=== PATIENT | male | born 1970 | race Caucasian/White ===

== ENCOUNTER 2024-03-24 19:11 | Outpatient (OUT) | payer OTHER, SELFPAY ==
--- NOTE | 2024-03-24 19:21 | US_ITS ---
The [address] [address] Patient Name: NASIM FELIX MRN: [id number] date: 1970 Sex: M Assigned Patient Location: US Current Patient Location: US Accession/Order Number: [id number] Exam Date: 03/24/2024 19:25 Report Date: 03/24/2024 20:10 At the request of: GINETTE KIMBLE Procedure: US venous doppler LE LT EXAM: US venous doppler LE LT HISTORY: SWELLING AND REDNESS R60.0 COMPARISON: None. TECHNIQUE: Left lower shows the ultrasound performed FINDINGS: No findings of left lower extremity DVT. Normal augmentation and waveforms US/US venous doppler LE LT IMPRESSION: No evidence of left lower extremity DVT Electronically authenticated by: NIK PISANO Date: 03/24/2024 20:10
== END 2024-03-24 19:12 | disposition home or self-care (01) ==
PROVIDERS: Visit Provider Nurse Practitioner Primary Care
DX: R60.0 Localized edema (principal); L53.9 Erythematous condition, unspecified
CPT/HCPCS: 93971

== ENCOUNTER 2024-04-01 20:26 | Emergency (ER) | payer OTHER, SELFPAY ==
--- OUTSIDE RECORDS SUMMARY | 2024-04-01 20:35 | XMS_ITS | CCD ---
Author Organization [facility] Care Team Providers Care Meat Inspector Name Role Phone Marcie BORREGO, Terese Primary Care Provider Marcie BORREGO, Terese Primary Care Provider Kelly Gonzalez RN Unavailable Billie RN, Janee Unavailable Unavailable Billie BEASLEY, Janee Unavailable Unavailable JEWEL BROWNING Consulting Unavailable CHRIS KOCH Admitting Unavailable RADHA COTTER Attending Unavailable LAVELLE ELIZABETH Referring Unavailable MUNZAR, TERESE Primary Care Unavailable MUNZAR, TERESE Primary Care Unavailable LUISANA SOUZA Attending Unavailable JAYA LEWIS Admitting Unavailable LACY MENSAH Consulting Unavailable MUNZAR, TERESE Primary Care Unavailable JAYA LEWIS Attending Unavailable Unavailable Primary Care Provider Unavailabl e No Family, Physician Primary Care Unavailable ROGELIO MADERA Attending Unavaila ble JULIOCESAR REYES Referring Unavailable MUNZAR, LUKE Primary Care Unavailable MUNZAR, LUKE Referring Unavailable MUNZAR, LUKE Primary Care Unavailable JULIOCESAR REYES Attending Unavailable MUNZAR, LUKE Primary Care Unavailable MUNZAR, LUKE Primary Care Unavailable MUNZAR, LUKE Primary Care Unavailable MUNZAR, LUKE Attending Unavailable MUNZAR, LUKE Referring Unavailable MUNZAR, LUKE Primary Care Unavailable MUNZAR, LUKE Primary Care Unavailable MUNZAR, LUKE Attending Unavailable MUNZAR, LUKE Primary Care Unavailable MUNZAR, LUKE Primary Care Unavailable MUNZAR, LUKE Primary Care Unavailable MUNZAR, LUKE Referring Unavailable MUNZAR, LUKE Primary Care Unavailable LAVELLE ELIZABETH Attending Unavailable MUNZAR, LUKE Primary Care Unavailable LAVELLE ELIZABETH Attending Unavailable MUNZAR, LUKE Primary Care Unavailable LEONEL LIZARRAGA Referring Unavailable MUNZAR, LUKE Primary Care Unavailable MUNZAR, LUKE Primary Care Unavailable MUNZAR, LUKE Attending Unavailable THIRERY, AHMAD M Attending Unavailable PCP, NOT IN SYSTEM Primary Care Unavailable CECE LOYA Attending Unavailable CECE LOYA Referring Unavailable PCP, NOT IN SYSTEM Primary Care Unavailable KALEB TAVAREZ Admitting Unavailable TRACE KHAN Attending Unavailable MUNZAR, LUKE Primary Care Unavailable Carl RESTREPO Consulting Unavailable MUNZAR, LUKE Primary Care Unavailable SHRADDHA GUDINO, BLANCHE Admitting Unavailabl e NGUYỄN, MUHANNAD Consulting Unavailable SPENCER GARVIN Attending Unavailable MUNZAR, LUKE Primary Care Unavailable MUNZAR, LUKE Primary Care Unavailable SELVIN NICHOLE Attending UnavailTRACEY Frazier Admitting Unavailable DEZ ADKINS Consulting Unavailable MUNZAR, LUKE Primary Care Unavailable MD WARREN DONALD Attending Unavailable MUNZAR, LUKE Primary Care Unavailable MUNZAR, LUKE Primary Care Unavailable JULIOCESAR REYES Referring Unavailable MUNZAR, LUKE Primary Care Unavailable MILIND WAGNER Attending Unavailable MUNZAR, LUKE Primary Care Unavailable BRENDAN ORO Attending Unavailable RYAN CLIFFORD Referring Unavailable MUNZAR, LUKE Primary Care Unavailable KENIA TUBBS Attending Unavailable NIK ANDERSEN Admitting Unavailable MUNZAR, LUKE Primary Care Unavailable BLANCHE ROBERTS Attending Unavailabl e NGUYỄN, MUHANNAD Consulting Unavailable STEW HOLCOMB Admitting Unavailable MUNZAR, LUKE Primary Care Unavailable PHYLLIS REYNOLDS Attending Unavailable LAVELLE ELIZABETH Referring Unavailable JEWEL BROWNING Consulting Unavailable Allergies Allergy Classification Reported Allergen(s) Allergy Type Date of Onset Reaction(s) Facility (20 sources) HYDROmorphone; Translations: [HYDROMORPHONE (BULK)] Drug Allergy 5 Mental Status Change, Itching [facility] (1 source) HYDROmorphone; Translations: [HYDROMORPHONE] Drug Allergy 4 [facility] Medications Current Medications Medication Drug Class(es) Dates Sig (Normalized) Sig (Original) iv contrast (will be provided with radiology test) (1 source) Start: 10-13-2022 End: 10-14-2022 iv contrast (will be provided with radiology test) Indications: Abnormal results of liver function studies , Alcoholic cirrhosis of liver without ascites (HCC) CT LIVER Inject, intravenously, once for 1 dose.No IV access, insert saline lock prior to the beginning of sedation, infusion, injection of imaging exam. Discontinue saline lock post exam. If Pt. has a central line or IVAD, may access for administration according to line specific nursing protocol. Once exam is complete flush line and de-access according to line specific nursing protocol in the CT contrast administration guidelines link. 1 Each 0 10/13/2022 10/14/2022 Active Comment on above: CT LIVER Inject, int ravenously, once for 1 dose.No IV access, insert saline lock prior to the beginning of sedation, infusion, injection of imaging exam. Discontinue saline lock post exam. If Pt. has a central line or IVAD, may access for administration according to line specific nursing protocol. Once exam is complete flush line and de-access according to line specific nursing protocol in the CT contrast administration guidelines link. lactulose 667 mg/ml oral solution (8 sources) Osmotic Laxative Start: 04-04-2023 End: 05-04-2023 take 30 mL by mouth three times daily lactulose 20 gram/30 mL solution 30 mL by ORAL/FEEDING TUBE route three times daily. 2700 mL 0 04/04/2023 05/04/2023 Suspended Comment on above: 30 mL by ORAL/FEEDIN G TUBE route three times daily. magnesium oxide 400 mg oral tablet (20 sources) Start: 08-18-2021 End: 06-20-2023 take 1 tablet by mouth once daily magnesium oxide (MAG-OX) 400 mg (241.3 mg magnesium) tablet Take 1 tablet by mouth once daily. 90 tablet 3 06/25/2022 06/20/2023 Suspended Comment on above: Take 1 tablet by devon once daily. nirmatrelvir tablet 300 mg (150 mg x 2) and ritonavir tablet 100 mg in a dose pack (PAXLOVID) (2 sources) Start: 07-05-2022 End: 07-10-2022 nirmatrelvir tablet 300 mg (150 mg x 2) and ritonavir tablet 100 mg in a dose pack (PAXLOVID) Indications: COVID-19 Administer TWO pink nirmatrelvir 150 mg tablets and ONE white ritonavir 100 mg tablet for a total of three tablets twice daily. 30 tablet 0 07/05/2022 07/10/2022 Active Start: 07-05-2022 End: 07-05-2022 nirmatrelvir tablet 300 mg ( 150 mg x 2) and ritonavir tablet 100 mg in a dose pack (PAXLOVID) Indications: COVID-19 Administer TWO pink nirmatrelvir 150 mg tablets and ONE white ritonavir 100 mg tablet for a total of three tablets twice daily. 30 tablet 0 07/05/2022 07/05/2022 Discontinued Comment on above: Administer TWO pink nirmatrelvir 150 mg tablets and ONE white ritonavir 100 mg tablet for a total of three tablets twice daily. 12 hr orphenadrine citrate 100 mg extended release oral tablet (1 source) Muscle Relaxant Start: 03-14-20 End: 04-13-20 take 1 tablet by mouth twice daily orphenadrine ER (NORFLEX) 100 mg tablet Take 1 tablet by mouth twice daily. 60 tablet 0 03/14/2022 04/13/2022 Active Comment on above: Take 1 tablet by devon twice daily. pantoprazole 40 mg delayed release oral tablet (20 sources) Proton Pump Inhibitor Start: 08-18-19 End: 04-27-20 take 1 tablet by mouth once daily pantoprazole DR (PROTONIX) 40 mg tablet Indications: Gastroesophageal reflux disease without esophagitis Take 1 tablet by mouth once daily. 90 tablet 3 05/03/2023 04/27/2024 Active Comment on above: Take 1 tablet by devon once daily. 1 ml testosterone cypionate 200 mg/ml injection (20 sources) Androgen Start: 04-26-20 End: 04-16-20 testosterone cypionate 200 mg injection (DEPO-TESTOSTERONE) Start: 04-16-2023 End: 10-13-2023 inject 1 mL by intramuscular injection every other week testosterone cypionate (DEPO-TESTOSTERONE) 200 mg/mL injection Indications: Hypogonadism in male Inject 1 mL intramuscularly every 2 weeks for 180 days. 2 mL 5 04/16/2023 10/13/2023 Suspended Start: 04-12-2023 End: 03-17-2024 testosterone cypionate 200 m g injection (DEPO-TESTOSTERONE) Start: 01-28-2023 testosterone c ypionate 200 mg injection (DEPO-TESTOSTERONE) Start: 01-28-2023 testosterone c ypionate 200 mg injection (DEPO-TESTOSTERONE) Start: 01-14-2023 End: 07-11-2023 testosterone cypionate (DEPO-TESTOSTERONE) 200 mg/mL injection Indications: Hypogonadism in male Inject 1 mL intramuscularly every 3 weeks for 90 days. 2 mL 1 04/12/2023 04/16/2023 Discontinued Start: 11-26-2022 testosterone c ypionate 100 mg injection (DEPO-TESTOSTERONE) Start: 11-26-2022 testosterone c ypionate 100 mg injection (DEPO-TESTOSTERONE) Start: 11-26-2022 testosterone c ypionate 100 mg injection (DEPO-TESTOSTERONE) Start: 11-26-2022 testosterone c ypionate 100 mg injection (DEPO-TESTOSTERONE) Start: 11-14-2022 End: 05-13-2023 inject 1 mL by intramuscular injection every other week testosterone cypionate (DEPO-TESTOSTERONE) 100 mg/mL injection Indications: Hypogonadism in male Inject 1 mL intramuscularly every 2 weeks for 180 days. 2 mL 5 11/14/2022 05/13/2023 Active Start: 06-25-2022 End: 12-05-2022 inject 1 mL by intramuscular injection every other week testosterone cypionate (DEPO-TESTOSTERONE) 200 mg/mL injection Indications: Hypogonadism in male Inject 1 mL intramuscularly every 2 weeks for 90 days. 2 mL 2 09/06/2022 11/14/2022 Discontinued Start: 06-06-2022 End: 11-14-2022 testosterone cypionate 200 m g injection (DEPO-TESTOSTERONE) Start: 05-09-2022 End: 11-05-2022 inject 1 mL by intramuscular injection every month testosterone cypionate (DEPO-TESTOSTERONE) 200 mg/mL injection Indications: Hypogonadism in male Inject 1 mL intramuscularly once every month for 180 days. 6 mL 0 05/09/2022 06/25/2022 Discontinued Comment on above: Inject 1 mL intramus cularly once every month for 180 days. Inject 1 mL intramus cularly every 2 weeks for 90 days. Inject 1 mL intramus cularly every 2 weeks for 180 days. Inject 1 mL intramus cularly every 3 weeks for 90 days. thiamine 100 mg oral tablet (20 sources) Start: End: take 1 tablet by mouth three times daily thiamine (VITAMIN B1) 100 mg tablet 1 tablet by ORAL/FEEDING TUBE route three times daily. 270 tablet 3 06/25/2022 06/20/2023 Suspended Start: 08-18-2021 End: 06-20-2023 take 1 tablet by mouth three times daily thiamine (VITAMIN B1) 100 mg tablet 1 tablet by ORAL/FEEDING TUBE route three times daily. 270 tablet 3 06/25/2022 06/20/2023 Active Comment on above: 1 tablet by ORAL/FEE DING TUBE route three times daily. Completed/Discontinued Medications Medication Drug Class(es) Dates Sig (Normalized) Sig (Original) acetaminophen 325 mg oral tablet (1 source) Start: 08-04-2023 End: 08-04-2023 acetaminophen (TYLENOL) tablet 650 mg Start: 08-04-2023 End: 08-04-2023 acetaminophen (TYLENOL) tabl et 650 mg 24 hr buPROPion hydrochloride 300 mg extended release oral tablet (20 sources) Aminoketone Start: 06-26-2022 take 1 tablet by mouth once daily buPROPion XL (WELLBUTRIN XL) 300 mg 24 hr tablet Indications: Anxiety and depression Take 1 tablet by mouth once daily. 30 tablet 11 06/26/2022 Suspended Start: 04-17-2022 End: 06-26-2022 take 1 tablet by mouth once daily buPROPion XL (WELLBUTRIN XL) 150 mg 24 hr tablet Indications: Anxiety and depression Take 1 tablet by mouth once daily. 30 tablet 11 04/17/2022 06/26/2022 Discontinued Comment on above: [facility] ciprofloxacin 500 mg oral tablet (4 sources) Quinolone Antimicrobial Start : 04-11 take 1 tablet by mouth twice daily ciprofloxacin HCl (CIPRO) 500 mg tablet Take 1 tablet by mouth twice daily. 6 tablet 0 04/11/2023 Active Comment on above: Take 1 tablet by devon twice daily. docusate sodium 100 mg oral capsule (20 sources) Start : 08-18 End: 06-25 take 1 capsule by mouth once daily docusate sodium (COLACE) 100 mg capsule Take 1 capsule by mouth once daily. 90 capsule 3 06/25/2022 Suspended Comment on above: Take 1 capsule by mo [facility] once daily. ferrous gluconate 324 mg oral tablet (20 sources) Start : 08-18 End: 06-25 take 1 tablet by mouth three times daily at mealtime ferrous gluconate 324 mg (37.5 mg iron) tablet Take 1 tablet by mouth three times daily with meals. 100 tablet 3 06/25/2022 06/25/2022 Discontinued Comment on above: Take 1 tablet by devon th three times daily with meals. hydroCHLOROthiazide 12.5 mg oral capsule (19 sources) Thiazide Diuretic Start : 11-01 take 1 capsule by mouth once daily hydroCHLOROthiazide 12.5 mg capsule Indications: Essential hypertension Take 1 capsule by mouth once daily. 30 capsule 5 11/01/2022 Suspended Comment on above: Take [address] [facility] once daily. 1 ml ketorolac tromethamine 15 mg/ml cartridge (1 source) Nonsteroidal Anti-inflammatory Drug, Cyclooxygenase Inhibitor Start : 08-04 End: 08-04 ketorolac (TORADOL) injection 15 mg Start: 08-04-2023 End: 08-04-2023 ketorolac (TORADOL) injectio n 15 mg lisinopril 40 mg oral tablet (20 sources) Angiotensin Converting Enzyme Inhibitor Start: 11-01-2022 take 1 tablet by mouth once daily lisinopril (ZESTRIL) 40 mg tablet Indications: Essential hypertension Take 1 tablet by mouth once daily. 90 tablet 3 11/01/2022 Suspended Start: 10-08-2022 take 1 tablet by devon th once daily lisinopril (ZESTRIL, PRINIVIL) 20 mg tablet Indications: Essential hypertension Take 1 tablet by mouth once daily. 60 tablet 5 10/08/2022 Active Start: 08-10-2022 End: 10-08-2022 take 1 tablet by mouth once daily lisinopril (ZESTRIL, PRINIVIL) 10 mg tablet Indications: Essential hypertension Take 1 tablet by mouth once daily. 90 tablet 3 08/10/2022 10/08/2022 Discontinued Comment on above: Take 1 tablet by devon once daily. naltrexone hydrochloride 50 mg oral tablet (2 sources) Opioid Antagonist Start: take 1 tablet by mouth once daily naltrexone 50 mg tablet Indications: Moderate alcohol use disorder, in early remission (HCC) Take 1 tablet by mouth once daily. 30 tablet 5 04/16/2023 Active Comment on above: Take 1 tablet by devon th once daily. sertraline 50 mg oral tablet (5 sources) Serotonin Reuptake Inhibitor Start: End: take 1 tablet by mouth once daily sertraline (ZOLOFT) 50 mg tablet Indications: Anxiety and depression Take 1 tablet by mouth once daily. 90 tablet 3 05/26/2021 04/17/2022 Discontinued Comment on above: Take 1 tablet by devon th once daily. sildenafil 100 mg oral tablet (20 sources) Phosphodiesterase 5 Inhibitor Start: End: sildenafil (VIAGRA) 100 mg tablet Indications: Drug-induced erectile dysfunction Take 1 tablet by mouth as needed. 30-60 minutes before sexual intercourse 15 tablet 5 12/11/2022 Suspended Comment on above: Take 1 tablet by devon th as needed. 30-60 minutes before sexual intercourse 50 ml sodium chloride 9 mg/ml injection (4 sources) Start: End: sodium chloride 0.9 % infusion Start: 08-04-2023 End: 08-04-2023 sodium chloride 0.9 % bolus 500 mL therapeutic multivitamin-minerals (THERA M PLUS, FERROUS FUMARAT,) 9 mg iron-400 mcg tablet (20 sources) Start: 09-26-2020 therapeutic multivitamin-minerals (THERA M PLUS, FERROUS FUMARAT,) 9 mg iron-400 mcg tablet Take 1 tablet by mouth once daily. 30 tablet 2 09/26/2020 Suspended Start: 09-26-2020 therapeutic mu ltivitamin-minerals (THERA M PLUS, FERROUS FUMARAT,) 9 mg iron-400 mcg tablet Take 1 tablet by mouth once daily. 30 tablet 2 09/26/2020 Active Comment on above: Take 1 tablet by devon th once daily. tiZANidine 4 mg oral tablet (5 sources) Central alpha-2 Adrenergic Agonist Start: 04-12-2023 take 1 tablet by mouth every eight hours as needed tiZANidine (ZANAFLEX) 4 mg tablet Take 1 tablet by mouth every 8 hours as needed. 90 tablet 1 04/12/2023 Suspended Comment on above: Take 1 tablet by devon th every 8 hours as needed. Problems Active Problems Problem Classification Problem Date Documented Da te Episodic/Chronic Acute and unspecified renal failure (1 source) Acute kidney failure, unspecified; Translations: [CHANDAN (acute kidney injury) (HCC)] Onset: 4 Episodic Alcohol-related disorders (20 sources) Alcoholic cirrhosis; Translations: [Alcoholic cirrhosis of liver without ascites] Onset: 0 Chronic Anxiety disorders (20 sources) Posttraumatic stress disorder; Translations: [Post-traumatic stress disorder, unspecified] Onset: 5 11-03-2014 Chronic Biliary tract disease (20 sources) Gallstone; Translations: [Calculus of gallbladder without cholecystitis without obstruction] 11-03-2014 Episodic Coagulation and hemorrhagic disorders (20 sources) Platelet count below reference range; Translations: [Thrombocytopenia, unspecified] Onset: 3 Chronic Conditions associated with dizziness or vertigo (1 source) Dizziness and giddiness; Translations: [Dizzy] Onset: 4 Episodic Deficiency and other anemia (1 source) Other pancytopenia; Translations: [Pancytopenia (HCC)] Onset: 4 Chronic Diseases of white blood cells (2 sources) Lymphocytopenia; Translations: [Lymphocytopenia] Onset: 4 Chronic E Codes: Adverse effects of medical drugs (1 source) Adverse reaction to drug; Translations: [Adverse effect of unspecified drugs, medicaments and biological substances, initial encounter] 08-04-2023 Episodic E Codes: Fall (1 source) Unspecified fall, initial encounter; Translations: [Fall, initial encounter] Onset: 4 Episodic Esophageal disorders (20 sources) Gastroesophageal reflux disease; Translations: [Gastro-esophageal reflux disease without esophagitis] Onset: 5 01-01-2020 Chronic Essential hypertension (20 sources) Essential hypertension; Translations: [Essential (primary) hypertension] Onset: 3 Chronic Fluid and electrolyte disorders (4 sources) Dehydration; Translations: [Dehydration] Onset: 4 08-04-2023 Episodic Gastroduodenal ulcer (except hemorrhage) (20 sources) Peptic ulcer; Translations: [Peptic ulcer, site unspecified, unspecified as acute or chronic, without hemorrhage or perforation] 11-03-2014 Chronic Gastrointestinal hemorrhage (1 source) Secondary esophageal varices with bleeding; Translations: [Secondary esophageal varices with bleeding (HCC)] Onset: 3 Chronic Headache; including migraine (1 source) Intractable chronic tension headache; Translations: [Chronic tension-type headache, intractable] Chronic Nutritional deficiencies (2 sources) Undernutrition; Translations: [Mild protein-calorie malnutrition] Onset: 3 05-03-2023 Chronic Other aftercare (1 source) Post-discharge follow-up; Translations: [Encounter for follow-up examination after completed treatment for conditions other than malignant neoplasm] 04-16-2023 Episodic Other circulatory disease (1 source) Elevated blood-pressure reading without diagnosis of hypertension; Translations: [Elevated blood-pressure reading, without diagnosis of hypertension] Episodic Other disorders of stomach and duodenum (20 sources) Disorder of stomach; Translations: [Disease of stomach and duodenum, unspecified] 11-03-2014 Episodic Other endocrine disorders (20 sources) Male hypogonadism; Translations: [Testicular hypofunction] Onset: 2 05-09-2022 Chronic Other endocrine disorders (1 source) Testicular hypofunction; Translations: [Hypogonadism in male] Onset: 2 Chronic Other eye disorders (1 source) Anisocoria; Translations: [Anisocoria] Onset: 4 Chronic Other injuries and conditions due to external causes (1 source) Unspecified injury of head, initial encounter; Translations: [Injury of head, initial encounter] Onset: 4 Episodic Other liver diseases (3 sources) Portal hypertension; Translations: [Portal hypertension] Chronic Other liver diseases (1 source) Cirrhosis of liver; Translations: [Unspecified cirrhosis of liver] 04-04-2023 Chronic Other liver diseases (1 source) Elevated liver enzymes level; Translations: [Abnormal levels of other serum enzymes] Episodic Other male genital disorders (2 sources) Drug-induced erectile dysfunction; Translations: [Impotence of organic origin] Chronic Other male genital disorders (1 source) Male erectile dysfunction, unspecified; Translations: [Impotence of organic origin] Chronic Other nervous system disorders (1 source) Unspecified abnormalities of gait and mobility; Translations: [Gait disturbance] Onset: 4 Episodic Other skin disorders (1 source) Seborrheic keratosis; Translations: [Other seborrheic keratosis] Episodic Other upper respiratory disease (1 source) Bleeding from nose; Translations: [Epistaxis] Episodic Residual codes; unclassified (1 source) Personal history of other specified conditions; Translations: [History of alcohol use] Onset: 4 Episodic Residual codes; unclassified (1 source) Localized edema; Translations: [Edema of left lower extremity] Onset: 4 Episodic Residual codes; unclassified (1 source) Edema Onset: 4 Episodic Skin and subcutaneous tissue infections (4 sources) Cellulitis, unspecified; Translations: [Cellulitis of left lower limb] Onset: 4 Episodic Spondylosis; intervertebral disc disorders; other back problems (3 sources) Cervical spondylosis; Translations: [Spondylosis without myelopathy or radiculopathy, cervical region] Onset: 4 Chronic Substance-related disorders (7 sources) Nicotine dependence; Translations: [Nicotine dependence, unspecified, uncomplicated] Onset: 3 04-11-2023 Chronic Superficial injury; contusion (1 source) Contusion of other part of head, initial encounter; Translations: [Contusion of face, initial encounter] Onset: 4 Episodic Syncope (1 source) Syncope and collapse; Translations: [Syncope and collapse] Onset: 4 Episodic Unclassified (1 source) ILL Onset: 4 Unclassified (1 source) Elevated serum lactate dehydrogenase; Translations: [Elevated serum lactate dehydrogenase] Onset: 4 Unclassified (1 source) Alcohol use disorder; Translations: [Alcohol use disorder] Onset: 3 Viral infection (3 sources) Verruca vulgaris; Translations: [Viral wart, unspecified] Episodic Past or Other Problems Problem Classification Problem Date Documented Da te Episodic/Chronic Abdominal pain (20 sources) Abdominal pain; Translations: [Unspecified abdominal pain] Onset: 1 08-29-2020 Episodic Deficiency and other anemia (2 sources) Anemia, unspecified; Translations: [Anemia, unspecified type] Onset: 3 Episodic Gastrointestinal hemorrhage (7 sources) Hematochezia; Translations: [Melena] Onset: 3 Episodic Other connective tissue disease (20 sources) Lateral epicondylitis of left humerus; Translations: [Lateral epicondylitis, left elbow] Onset: 8 11-11-2017 Episodic Other gastrointestinal disorders (20 sources) History of esophageal varices; Translations: [Personal history of other diseases of the digestive system] Onset: 2 03-01-2022 Episodic Other gastrointestinal disorders (1 source) Personal history of other diseases of the digestive system; Translations: [History of esophageal varices] Onset: 2 Episodic Other nervous system disorders (20 sources) Numbness of hand; Translations: [Anesthesia of skin] Onset: 7 10-22-2016 Episodic Other non-traumatic joint disorders (20 sources) Pain of right acromioclavicular joint; Translations: [Pain in right shoulder] Onset: 8 04-21-2018 Episodic Other screening for suspected conditions (not mental disorders or infectious disease) (16 sources) Patient encounter status; Translations: [Encounter for screening for malignant neoplasm of prostate] Onset: 3 Episodic Residual codes; unclassified (20 sources) Noncompliance with treatment; Translations: [Patient's noncompliance with other medical treatment and regimen] Onset: 0 01-01-2020 Episodic Residual codes; unclassified (1 source) Hallucinations, unspecified; Translations: [Hallucinations] Onset: 3 Episodic Spondylosis; intervertebral disc disorders; other back problems (20 sources) Neck pain; Translations: [Cervicalgia] Onset: 7 10-22-2016 Episodic Sprains and strains (20 sources) Sprain of talofibular ligament of right ankle; Translations: [Sprain of other ligament of right ankle, initial encounter] Onset: 7 07-07-2017 Episodic Results Test Name Value Interpretation Reference Range Facility ECG COMPLETEon 03-07-2024 ECG COMPLETE [facility] ED NOTEon 03-07-2024 ED NOTE HNO ID: [id number] Author: MILTON RAMSEY RN Service: ? Author Type: Registered Nurse Type: ED Notes Filed: 03/07/2024 02:58 Note Text: Report given to Myla BEASLEY. [facility] ED NOTE HNO ID: [id number] Author: MILTON RAMSEY RN Service: ? Author Type: Registered Nurse Type: ED Notes Filed: 03/07/2024 02:44 Note Text: Pt ambulatory to the restroom without assistance. Pt states I feel better [facility] ED NOTE HNO ID: [id number] Author: CASH PARADA RN Service: ? Author Type: Registered Nurse Type: ED Notes Filed: 03/07/2024 00:08 Note Text: Bed: 56-ED Expected date: Expected time: Means of arrival: Comments: triage Normal [facility] ED PROV NOTEon 03-07-2024 ED PROV NOTE [facility] Ethanol SerPl-mCncon 024 Ethanol [Mass/Vol] mg/dL Normal <11 [facility] Comment on above: Order Comment: Speci men Type: BLOOD SPECIMENOrdering Facility: [facility] Address: [address] [place] [address] Performed By: #### 5 643-2 ####[facility] LABORATORYCLIA [id number] [address] [place] FLUABV+SARS-CoV-2+RSV Pnl Re sp RUI+probeon 03-07-2024 FLUABV+SARS-CoV-2+ RSV Pnl Resp RUI+probe [facility] Comment on above: Performed By: #### 9 5941-1 ####[facility] LABORATORYCLIA [id number] [place] [address] [place] TSH SerPl-aCncon 03-07-2024 TSH Qn 1.720 m[IU]/L Normal 0.270-4.200 [facility] Comment on above: Order Comment: Speci men Type: BLOOD SPECIMENOrdering Facility: [facility] Address: [address] [place] [address] Performed By: #### 3 016-3 ####[facility] LABORATORYCLIA [id number] [place] [id number] [place] ALLIED HEALTHon 03-06-2024 ALLIED HEALTH [facility] Basic metabolic 2000 panelon 03-06-2024 Anion gap [Moles/Vol] 11 mmol/L Normal 8-15 [facility] Comment on above: Order Comment: Speci men Type: BLOOD SPECIMENOrdering Facility: [facility] Address: [address] [place] [address] Performed By: #### 2 4321-2, HSTNT ####[facility] LABORATORYCLIA [id number] [place] [id number] [place] Calcium [Mass/Vol] 8.9 mg/dL Normal 8.5-10.2 [facility] Comment on above: Order Comment: Speci men Type: BLOOD SPECIMENOrdering Facility: [facility] Address: [address] [place] [address] Performed By: #### 2 4321-2, HSTNT ####[facility] LABORATORYCLIA [id number] [place] [address] [place] Chloride [Moles/Vol] 106 mmol/L Normal 98-107 [facility] Comment on above: Order Comment: Speci men Type: BLOOD SPECIMENOrdering Facility: [facility] Address: [address] [place] [address] Performed By: #### 2 4321-2, HSTNT ####[facility] LABORATORYCLIA [id number] [place] [address] [place] CO2 [Moles/Vol] 22 mmol/L Normal 22-30 [facility] Comment on above: Order Comment: Speci men Type: BLOOD SPECIMENOrdering Facility: [facility] Address: [address] [place] [address] Performed By: #### 2 4321-2, HSTNT ####[facility] LABORATORYCLIA [id number] [place] [id number] [place] Creatinine [Mass/Vol] 1.35 mg/dL High 0.73-1.22 [facility] Comment on above: Order Comment: Speci men Type: BLOOD SPECIMENOrdering Facility: [facility] Address: [address] [place] [address] Performed By: #### 2 4321-2, HSTNT ####[facility] LABORATORYCLIA [id number] [place] [address] [place] Creatinine and Glomerular filtration rate.predicted panel (S/P/Bld) 62 mL/min/1.73m??? Normal >=60 [facility] Comment on above: Order Comment: Berna champion Type: BLOOD SPECIMENOrdering Facility: [facility] Address: [address] [place] [address] Result Comment: Puja mated Glomerular Filtration Rate (eGFR) is calculated using the 2020 CKD-EPI creatinine equation. This equation utilizes serum creatinine, sex, and age as parameters. The creatinine assay has traceable calibration to isotope dilution-mass spectrometry. Refer to KDIGO guidelines for clinical interpretation. In patients with unstable renal function, e.g. those with acute kidney injury, the eGFR may not accurately reflect actual GFR. Performed By: #### 2 4321-2, HSTNT ####[facility] LABORATORYCLIA [id number] [place] [id number] [place] Glucose [Mass/Vol] 116 mg/dL High 74-99 [facility] Comment on above: Order Comment: Berna champion Type: BLOOD SPECIMENOrdering Facility: [facility] Address: [address] [place] [address] Result Comment: The [place] [employer] (ADA) provides guidance for cutoff values for fasting glucose and random glucose. The ADA defines fasting as no caloric intake for at least 8 hours. Fasting plasma glucose results between 100 to 125 mg/dL indicate increased risk for diabetes (prediabetes).Fasting plasma glucose results greater than or equal to 126 mg/dL meet the criteria for diagnosis of diabetes. In the absence of unequivocal hyperglycemia, results should be confirmed by repeat testing. In a patient with classic symptoms of hyperglycemia or hyperglycemic crisis, random plasma glucose results greater than or equal to 200 mg/dL meet the criteria for diagnosis of diabetes.Reference: Standards of Medical Care in Diabetes 2016, [place] [employer]. Diabetes Care. 2016.39(Suppl 1). Performed By: #### 2 4321-2, HSTNT ####[facility] LABORATORYCLIA [id number] [place] [id number] [place] Potassium [Moles/Vol] 4.0 mmol/L Normal 3.7-5.1 [facility] Comment on above: Order Comment: Speci men Type: BLOOD SPECIMENOrdering Facility: [facility] Address: [address] [place] [address] Performed By: #### 2 4321-2, HSTNT ####[facility] LABORATORYCLIA [id number] [place] [id number] [place] Sodium [Moles/Vol] 139 mmol/L Normal 136-144 [facility] Comment on above: Order Comment: Speci men Type: BLOOD SPECIMENOrdering Facility: [facility] Address: [address] [place] [address] Performed By: #### 2 4321-2, HSTNT ####[facility] LABORATORYCLIA [id number] [place] [address] [place] Urea nitrogen [Mass/Vol] 6 mg/dL Low 9-24 [facility] Comment on above: Order Comment: Speci men Type: BLOOD SPECIMENOrdering Facility: [facility] Address: [address] [place] [address] Performed By: #### 2 4321-2, HSTNT ####[facility] LABORATORYCLIA [id number] [place] [address] [place] CBC panel Auto (Bld)on 03-06 Erythrocyte distribution width (RBC) [Ratio] 17.5 % High 11.5-15.0 [facility] Comment on above: Order Comment: Speci men Type: BLOOD SPECIMENOrdering Facility: [facility] Address: [address] [place] [address] Performed By: #### 5 8410-2 ####[facility] LABORATORYCLIA [id number] [place] [id number] [place] Hematocrit (Bld) [Volume fraction] 40.7 % Normal 39.0-51.0 [facility] Comment on above: Order Comment: Speci men Type: BLOOD SPECIMENOrdering Facility: [facility] Address: [address] [place] [address] Performed By: #### 5 8410-2 ####[facility]ACE[facility] LABORATORYCLIA [id number] [address] [place] Hemoglobin (Bld) [Mass/Vol] 12.6 g/dL Low 13.0-17.0 [facility] Comment on above: Order Comment: Speci men Type: BLOOD SPECIMENOrdering Facility: [facility] Address: [address] [place] [address] Performed By: #### 5 8410-2 ####[facility] LABORATORYCLIA [id number] [address] STATES [facility] MCH (RBC) [Entitic mass] 25.3 pg Low 26.0-34.0 [facility] Comment on above: Order Comment: Speci men Type: BLOOD SPECIMENOrdering Facility: [facility] Address: [address] [place] [address] Performed By: #### 5 8410-2 ####[facility] LABORATORYCLIA [id number] [address] [place] [facility] MCHC (RBC) [Mass/Vol] 31.0 g/dL Normal 30.5-36.0 [facility] Comment on above: Order Comment: Speci men Type: BLOOD SPECIMENOrdering Facility: [facility] Address: [address] [place] [address] Performed By: #### 5 8410-2 ####[facility] LABORATORYCLIA [id number] [address] [place] MCV (RBC) [Entitic vol] 81.7 fL Normal 80.0-100.0 [facility] Comment on above: Order Comment: Speci men Type: BLOOD SPECIMENOrdering Facility: [facility] Address: [address] [place] [address] Performed By: #### 5 8410-2 ####[facility] LABORATORYCLIA [id number] [address] Nucleated RBC (Bld) [#/Vol] 10*3/uL Normal <0.01 [facility] Comment on above: Order Comment: Speci men Type: BLOOD SPECIMENOrdering Facility: [facility] Address: [address] [place] [address] Performed By: #### 5 8410-2 ####[facility] LABORATORYCLIA [id number] [place] [id number] [place] Platelet mean volume (Bld) [Entitic vol] 9.8 fL Normal 9.0-12.7 [facility] Comment on above: Order Comment: Speci men Type: BLOOD SPECIMENOrdering Facility: [facility] Address: [address] [place] [address] Performed By: #### 5 8410-2 ####[facility] LABORATORYCLIA [id number] [place] [address] [place] Platelets (Bld) [#/Vol] 75 10*3/uL Low 150-400 [facility] Comment on above: Order Comment: Speci men Type: BLOOD SPECIMENOrdering Facility: [facility] Address: [address] [place] [address] Result Comment: No c lot detected. Performed By: #### 5 8410-2 ####[facility] LABORATORYCLIA [id number] [place] [address] [place] RBC (Bld) [#/Vol] 4.98 10*6/uL Normal 4.20-6.00 [facility] Comment on above: Order Comment: Speci men Type: BLOOD SPECIMENOrdering Facility: [facility] Address: [address] [place] [address] Performed By: #### 5 8410-2 ####[facility] LABORATORYCLIA [id number] [place] [id number] [place] WBC (Bld) [#/Vol] 3.71 10*3/uL Normal 3.70-11.00 [facility] Comment on above: Order Comment: Speci men Type: BLOOD SPECIMENOrdering Facility: [facility] Address: [address] [place] [address] Performed By: #### 5 8410-2 ####[facility] LABORATORYCLIA [id number] [place] [id number] [place] CT BRAIN WO IVCONon 03-06-[address] BRAIN WO IVCON Normal [facility] CTA HEAD W IVCONon 4 CTA HEAD W IVCON Normal [facility] CTA NECK W IVCONon 4 CTA NECK W IVCON Normal [facility] DRUG SCREEN, URINEon 024 AMPHETAMINE/METHAM P Negative Normal NEG [facility] Comment on above: Result Comment: AMPH /METH screening cut off = 1000 ng/mL Performed By: #### D FINNEY #### [facility] ([id number]) [address] [place] [address] BARBITURATES Negative Normal NEG [facility] Comment on above: Result Comment: Aida iturates screening cut off value = 200 ng/mL Performed By: #### D FINNEY #### [facility] ([id number]) [address] [place] [address] BENZODIAZEPINES Positive Abnormal NEG [facility] Comment on above: Result Comment: Conf irmation available upon request. Benzodiazepines screening cut off value = 200 ng/mL Performed By: #### D FINNEY #### [facility] ([id number]) [address] [place] [address] 48168 CANNABINOIDS Negative Normal [facility] Comment on above: Result Comment: Amber abinoids/THC screening cut off value = 50 ng/mL Performed By: #### D FINNEY #### [facility] ([id number]) [address] [place] [address]95[address] COCAINE METABOLITE Negative Normal NEG [facility] Comment on above: Result Comment: Coca ine screening cut off value = 300 ng/mL Performed By: #### D FINNEY #### [facility] ([id number]) [address] [place] [address] ECSTASY Negative Normal [facility] Comment on above: Result Comment: Ecst asy screening cut off value = 500 ng/mL This report is intended for use in clinical monitoring or management of patients. Performed By: #### D FINNEY #### [facility] ([id number]) [address] [place] [address] 13542 METHADONE Negative Normal NEG [facility] Comment on above: Result Comment: Meth adone screening cut off value = 300 ng/mL. Performed By: #### D FINNEY #### [facility] ([id number]) [address] [place] [address] 12315 OPIATES Negative Normal NEG [facility] Comment on above: Result Comment: Opia alicia screening cut off value = 300 ng/mL NOTE: This test is used for the detection of codeine, hydrocodone (>1000 ng/mL), morphine and hydromorphone (>900 ng/mL) in urine. Performed By: #### D FINNEY #### [facility] ([id number]) [address] [place] [address] OXYCODONE Negative Normal NEG [facility] Comment on above: Result Comment: Oxyc odone screening cut off value = 300 ng/mL NOTE: This test is used for the detection of oxycodone and oxymorphone in urine. Performed By: #### D FINNEY #### [facility] ([id number]) [address] [place] [address]656 PHENCYCLIDINE Negative Normal [facility] Comment on above: Result Comment: Phen cyclidine screening cut off value = 25 ng/mL Performed By: #### D FINNEY #### [facility] ([id number]) [address] [place] [address] 14950 ED Triage Noteon 03-06-2024 ED Triage Note Normal [facility] HIGH SENSITIVITY TROPONIN To n 03-06-2024 Troponin T.cardiac High sensitivity method [Mass/Vol] <6 Normal <12 [facility] Comment on above: Order Comment: Speci men Type: BLOOD SPECIMENOrdering Facility: [facility] Address: [address] [place] [address] Performed By: #### 2 4321-2, HSTNT ####[facility] LABORATORYCLIA [id number] [place] [id number] [place] PT panel Coag (PPP)on 2023 INR Coag (PPP) [Relative time] 1.1 {INR} Normal 0.9-1.3 [facility] Comment on above: Order Comment: Berna champion Type: BLOOD SPECIMENOrdering Facility: [facility] Address: [address] [place] [address] Result Comment: Kecia min K Antagonist (VKA) Therapeutic Range: INR 2 to 3 (Target INR of 2.5)Note: For patients treated with VKA drugs, such as warfarin, the [place] [employer] 2012 Guideline recommends a therapeutic INR range of 2 to 3 (target INR of 2.5). This recommendation includes high-risk patients with antiphospholipid syndrome with previous arterial or venous thromboembolism, current-generation mechanical or bioprosthetic aortic heart valve replacement.Note: Patients with mechanical aortic valve replacement and additional risk factors for thromboembolic events (atrial fibrillation, previous thromboembolism, LV dysfunction, hypercoagulable conditions) or an older generation mechanical AVR (i.e., ball in-Cage) or any mechanical MVR should have a INR therapeutic range of 2.5 to 3.5 (target INR of 3).Juan Albertott GH, et al. Chest 2012, 141:7S-47SNishimura RA, et al. JAC 2017, 70: 252-289 Performed By: #### 3 4528-0, 01704-6 ####[facility] LABORATORYCLIA [id number] [place] [id number] [place] PT Coag (PPP) [Time] 12.2 s Normal 9.7-13.0 [facility] Comment on above: Order Comment: Berna champion Type: BLOOD SPECIMENOrdering Facility: [facility] Address: [address] [place] [address] Performed By: #### 3 4528-0, 54555-8 ####[facility] LABORATORYCLIA [id number] [place] [id number] [place] URN MACROSCOPIC NURon 2023 BILIRUBIN PIERRE Negative Normal NEG [facility] Comment on above: Performed By: #### N UM #### [facility] ([id number]) [address] [place] [address], [place] [address] BLOOD/HGB PIERRE Negative Normal NEG [facility] Comment on above: Performed By: #### N UM #### [facility] ([id number]) [address] [place] [address], [place] [address] GLUCOSE PIERRE Negative Normal NEG [facility] Comment on above: Performed By: #### N UM #### [facility] ([id number]) [address] [place] [address], [place] [address] KETONES PIERRE Negative Normal NEG [facility] Comment on above: Performed By: #### N UM #### [facility] ([id number]) [address] [place] [address], [place] [address] LEUKOCYTE ESTERASE PIERRE Trace Abnormal NEG [facility] Comment on above: Performed By: #### N UM #### [facility] ([id number]) [address] [place] [address], [place] [address] NITRITE PIERRE Negative Normal NEG [facility] Comment on above: Performed By: #### N UM #### [facility] ([id number]) [address] [place] [address], [place] [address] PH PIERRE 6.0 Normal 5.0-8.5 [facility] Comment on above: Performed By: #### N UM #### [facility] ([id number]) [address] [place] [address], [place] [address] PROTEIN PIERRE Negative Normal NEG [facility] Comment on above: Performed By: #### N UM #### [facility] ([id number]) [address] [place] [address], [place] [address] SPECIFIC GRAVITY PIERRE <=1.005 Normal 1.003-1.035 [facility] Comment on above: Performed By: #### N UM #### [facility] ([id number]) [address] [facility] [place] [address] UROBILINOGEN PIERRE 0.2 eu/dL Normal <1.1 [facility] Comment on above: Performed By: #### N UM #### [facility] ([id number]) [address] [place] [address], [place] [address] Urinalysis complete panel (U )on 03-06-2024 Bilirubin Ql (U) Negative Normal Negative [facility] Comment on above: Order Comment: Speci men Type: URINE SPECIMENOrdering Facility: [facility] Address: [address] [place] [address] Performed By: #### 2 4356-8 ####[facility] LABORATORYCLIA [id number] [place] [address] [place] Clarity (Unsp spec) Clear Normal Clear [facility] Comment on above: Order Comment: Speci men Type: URINE SPECIMENOrdering Facility: [facility] Address: [address] [place] [address] Performed By: #### 2 4356-8 ####[facility]ORATORYCLIA [id number] [place] [address] [place] Color (U) Light Yellow Normal Yellow [facility] Comment on above: Order Comment: Speci men Type: URINE SPECIMENOrdering Facility: [facility] Address: [address] [place] [address] Performed By: #### 2 4356-8 ####[facility]ORATORYCLIA [id number] [place] [address] [place] Glucose Test strip (U) [Mass/Vol] Negative Normal Trace, Negative [facility] Comment on above: Order Comment: Speci men Type: URINE SPECIMENOrdering Facility: [facility] Address: [address] [place] [address] Performed By: #### 2 4356-8 ####[facility]ORATORYCLIA [id number] [place] [address] [place] Hemoglobin Ql (U) Negative Normal Negative, Trace [facility] Comment on above: Order Comment: Speci men Type: URINE SPECIMENOrdering Facility: [facility] Address: [address] [place] [address] Performed By: #### 2 4356-8 ####[facility] LABORATORYCLIA [id number] [place] [address] [place] Ketones Ql (U) Negative Normal Negative, Trace [facility] Comment on above: Order Comment: Speci men Type: URINE SPECIMENOrdering Facility: [facility] Address: [address] [place] [address] Performed By: #### 2 4356-8 ####[facility] LABORATORYCLIA [id number] [place] [address] [place] Leukocyte esterase Test strip Ql (U) Negative Normal Negative, 25 Lauren/uL [facility] Comment on above: Order Comment: Speci men Type: URINE SPECIMENOrdering Facility: [facility] Address: [address] [place] [address] Performed By: #### 2 4356-8 ####[facility] LABORATORYCLIA [id number] [place] [address] [place] Nitrite Ql (U) Negative Normal Negative [facility] Comment on above: Order Comment: Speci men Type: URINE SPECIMENOrdering Facility: [facility] Address: [address] [place] [address] Performed By: #### 2 4356-8 ####[facility] LABORATORYCLIA [id number] [place] [address] [place] pH (U) 6.0 [pH] Normal 5.0-8.0 [facility] Comment on above: Order Comment: Speci men Type: URINE SPECIMENOrdering Facility: [facility] Address: [address] [place] [address] Performed By: #### 2 4356-8 ####[facility] LABORATORYCLIA [id number] [place] [address] [place] Protein (U) [Mass/Vol] Negative Normal Trace, Negative [facility] Comment on above: Order Comment: Speci men Type: URINE SPECIMENOrdering Facility: [facility] Address: [address] [place] [address] Performed By: #### 2 4356-8 ####[facility] LABORATORYCLIA [id number] [place] [id number] [place] RBC LM.HPF (Urine sed) [#/Area] 0-3 /HPF Normal 0-3 /HPF [facility] Comment on above: Order Comment: Speci men Type: URINE SPECIMENOrdering Facility: [facility] Address: [address] [place] [address] Performed By: #### 2 4356-8 ####[facility] LABORATORYCLIA [id number] [place] [address] [place] Specific gravity (U) [Rel density] 1.010 Normal 1.005-1.030 [facility] Comment on above: Order Comment: Speci men Type: URINE SPECIMENOrdering Facility: [facility] Address: [address] [place] [address] Performed By: #### 2 4356-8 ####[facility] LABORATORYCLIA [id number] [place] [address] [place] Urobilinogen Ql (U) Normal Normal Normal [facility] Comment on above: Order Comment: Speci men Type: URINE SPECIMENOrdering Facility: [facility] Address: [address] [place] [address] Performed By: #### 2 4356-8 ####[facility] LABORATORYCLIA [id number] [place] [address] [place] WBC LM.HPF (Urine sed) [#/Area] 0-5 /HPF Normal 0-5 /HPF [facility] Comment on above: Order Comment: Speci men Type: URINE SPECIMENOrdering Facility: [facility] Address: [address] [place] [address] Performed By: #### 2 4356-8 ####[facility] LABORATORYCLIA [id number] [place] [address] [place] XR CHEST 1V FRONTAL PORTon 0 03-06-2024 XR CHEST 1V FRONTAL PORT Normal [facility] aPTT PPPon 03-06-2024 aPTT Coag (PPP) [Time] 26.4 s Normal 23.0-32.4 [facility] Comment on above: Order Comment: Speci men Type: BLOOD SPECIMENOrdering Facility: [facility] Address: [address] [place] [address] Performed By: #### 3 4528-0, 62745-1 ####[facility] LABORATORYCLIA [id number] [address] CBC AND AUTO DIFFon 03-05-20 24 ABSOLUTE BASOPHIL 0.0 X10E9/L Normal 0.0-0.2 [facility] Comment on above: Performed By: #### C CORTEZ, , 49864-5, CBCA #### [facility] ([id number]) [address] [place] [address] ABSOLUTE NEUTROPHIL 2.8 X10E9/L Normal 1.5-6.6 [facility] Comment on above: Performed By: #### C CORTEZ, , 78344-9, CBCA #### [facility] ([id number]) [address] [place] [address] 12627 Basophils/100 WBC (Bld) 0.7 % Normal [facility] [facility] Comment on above: Performed By: #### C CORTEZ, , 56428-2, CBCA #### [facility] ([id number]) [address] [place] [address] 99101 Eosinophils (Bld) [#/Vol] 0.3 10*3/uL Normal 0.0-0.4 [facility] Comment on above: Performed By: #### C CORTEZ, , 40325-4, CBCA #### [facility] ([id number]) [address] [place] [address] 92932 Eosinophils/100 WBC (Bld) 6.2 % Normal [facility] Comment on above: Performed By: #### C CORTEZ, , 84964-5, CBCA #### [facility] ([id number]) [address] [place] [address] 86275 Erythrocyte distribution width (RBC) [Ratio] 19.0 % High 11.5-15.0 [facility] Comment on above: Performed By: #### C CORTEZ, , 56481-8, CBCA #### [facility] ([id number]) [address] [place] [address] 32057 Hematocrit (Bld) [Volume fraction] 38.2 % Low 39-49 [facility] Comment on above: Performed By: #### Cecile TORO, , 88617-6, CBCA #### [facility] ([id number]) [address] [place] [address] 58767 Hemoglobin (Bld) [Mass/Vol] 12.1 g/dL Low 13.0-17.0 [facility] Comment on above: Performed By: #### C CORTEZ, , 41320-7, CBCA #### [facility] ([id number]) [address] [place] [address] 83648 Lymphocytes (Bld) [#/Vol] 1.0 10*3/uL Normal 1.0-3.5 [facility] Comment on above: Performed By: #### Cecile TORO, , 60744-0, CBCA #### [facility] ([id number]) [address] [place] [address] 52443 Lymphocytes/100 WBC (Bld) 21.2 % Normal [facility] Comment on above: Performed By: #### Cecile TROO, , 76998-1, CBCA #### [facility] ([id number]) [address] [place] [address] 53418 MCH (RBC) [Entitic mass] 24.9 pg Low 27-34 [facility] Comment on above: Performed By: #### C CORTEZ, , 44416-5, CBCA #### [facility] ([id number]) [address] [place] [address] 05936 MCHC (RBC) [Mass/Vol] 31.7 g/dL Low 32-36 [facility] Comment on above: Performed By: #### C CORTEZ, , 04598-0, CBCA #### [facility] ([id number]) [address] [place] [address] 55768 MCV (RBC) [Entitic vol] 79 fL Low 80-100 [facility] Comment on above: Performed By: #### C CORTEZ, , 32040-7, CBCA #### [facility] ([id number]) [address] [place] [address] 12115 Monocytes (Bld) [#/Vol] 0.5 10*3/uL Normal 0-0.9 [facility] Comment on above: Performed By: #### C CORTEZ, , 02938-6, CBCA #### [facility] ([id number]) [address] [place] [address] 50191 Monocytes/100 WBC (Bld) 11.3 % Normal [facility] Comment on above: Performed By: #### C CORTEZ, , 88544-2, CBCA #### [facility] ([id number]) [address] [place] [address] 36765 Neutrophils/100 WBC (Bld) 60.6 % Normal [facility] Comment on above: Performed By: #### C CORTEZ, , 97114-8, CBCA #### [facility] ([id number]) [address] [place] [address] 06911 Platelet mean volume (Bld) [Entitic vol] 8.1 fL Normal 7-12 [facility] Comment on above: Performed By: #### C CORTEZ, 47248-8, 88275-5, CBCA #### [facility] ([id number]) [address] [place] [address] 34238 Platelets (Bld) [#/Vol] 88 10*3/uL Low 150-450 [facility] Comment on above: Performed By: #### C CORTEZ, , 93090-1, CBCA #### [facility] ([id number]) [address] [place] [address] 10687 RBC COUNT 4.87 X10E12/L Normal 4.10-5.70 [facility] Comment on above: Performed By: #### C CORTEZ, , 64492-8, CBCA #### [facility] ([id number]) [address] [place] [address] 08114 WBC (Bld) [#/Vol] 4.6 10*3/uL Normal 4.0-11.0 [facility] Comment on above: Performed By: #### C CORTEZ, , 25087-8, CBCA #### [facility] ([id number]) [address] [place] [address] 71832 [facility] 03-05-2024 RAPHAELN Telephone (PODCCP) GALINDO SNOW ([id number]) 1970 M Date Time Provider Department 03/05/24 LUKE JACK PODCCP During your visit today, we recorded the following information about you: Larisa Puckett 03/05/2024 1:34 PM Signed Transitional Care Management (TCM) [facility] Provider Action / FYI: NA SUMMARY: Outreach type: FOLLOW-UP OUTREACH Discharge Network Status: In-Network Discharge Source of Patient: [facility] TCM Discharge Report Patient discharged from [facility] on 02/20/2024. Admitted for Cellulitis. Contact made with patient: No - 2nd unsuccessful attempt - end outreach and close encounter. Larisa Puckett March 05, 2024 1:34 PM Allergies As of Date: 03/05/2024 Noted Allergy Reaction DILAUDID (HYDROMORPHONE (BULK)) 11/03/2014 1 - Mental Status Change 9 - Itching Date Reviewed: 02/22/2024 Reviewed by: Karlo Chacon - Fully Assessed Reason for Visit: Transition Of Care [4074] Prescriptions as of 03/05/2024 - pantoprazole DR (PROTONIX) 40 mg tablet Take 1 tablet by mouth two times a day before meals at 6 am and 4 pm. - lisinopril (ZESTRIL) 40 mg tablet Take 1 tablet by mouth once daily. - hydrOXYzine pamoate (VISTARIL) 50 mg capsule Take 1 capsule by mouth three times a day as needed for anxiety. - testosterone cypionate (DEPO-TESTOSTERONE) 200 mg/mL injection Inject 1 mL intramuscularly one time a week for 180 days. - sildenafil (VIAGRA) 100 mg tablet Take 1 tablet by mouth as needed. 30-60 minutes before sexual intercourse - magnesium oxide (MAG-OX) 400 mg (241.3 mg magnesium) tablet Take 1 tablet by mouth once daily. - thiamine (VITAMIN B1) 100 mg tablet 1 tablet by ORAL/FEEDING TUBE route three times a day. - venlafaxine ER (EFFEXOR XR) 37.5 mg 24 hr capsule Take 1 capsule by mouth daily with breakfast. - hydroCHLOROthiazide 12.5 mg capsule Take 1 capsule by mouth once daily. - therapeutic multivitamin-minerals (THERA M PLUS, FERROUS FUMARAT,) 9 mg iron-400 mcg tablet Take 1 tablet by mouth once daily. Meds Comments as of 12/30/2019: Pt stopped taking medications about 2 weeks ago- restarted 12/27 Problem List As Of Date 03/05/2024 Noted Resolved Thrombocytopenia (HCC) [D69.6] 07/01/2013 Gastropathy [K31.9] Alcohol use disorder [F10.90] Gallstones [K80.20] PUD (peptic ulcer disease) [K27.9] GERD (gastroesophageal reflux disease) [K21.9] 11/03/2014 PTSD (post-traumatic stress disorder) [F43.10] 11/03/2014 Numbness and tingling of left leg [R20.0, R20.2]10/22/2016 Cervicalgia [M54.2] 10/22/2016 Chronic neck pain [M54.2, G89.29] 10/22/2016 Sprain of anterior talofibular ligament of righ*07/07/2017 Lateral epicondylitis of left elbow [M77.12] 11/11/2017 Arthralgia of right acromioclavicular joint [M2*04/21/2018 Anxiety [F41.9] 06/14/2018 GI bleed [K92.2] 12/30/2019 01/01/2020 Non compliance with medical treatment [Z91.199] 12/30/2019 Abdominal pain [R10.9] 08/29/2020 Alcoholic cirrhosis of liver without ascites (H*03/01/2022 History of esophageal varices [Z87.19] 03/01/2022 Hypogonadism in male [E29.1] 05/09/2022 Essential hypertension [I10] 08/10/2022 Acute upper GI bleeding [K92.2] 03/30/2023 04/04/2023 Bleeding esophageal varices (HCC) [I85.01] 03/31/2023 04/04/2023 Hematemesis with nausea [K92.0] 03/31/2023 04/11/2023 Alcohol abuse [F10.10] 03/31/2023 Alcohol withdrawal delirium (HCC) [F10.931] 03/31/2023 Upper GI bleed [K92.2] 04/10/2023 04/11/2023 LLQ abdominal pain [R10.32] 04/10/2023 04/11/2023 Hematemesis without nausea [K92.0] 04/10/2023 04/11/2023 Nicotine use disorder, F17.2 [F17.200] 04/10/2023 Acute upper GI bleed [K92.2] 05/02/2023 05/03/2023 Severe protein-calorie malnutrition (HCC) [E43] 05/03/2023 GI bleeding [K92.2] 05/03/2023 05/04/2023 Alcohol use disorder, severe, dependence (HCC) *05/04/2023 Hematemesis [K92.0] 05/06/2023 05/10/2023 Withdrawal symptoms, alcohol, with delirium (HC*05/06/2023 05/10/2023 Acute encephalopathy [G93.40] 05/06/2023 05/10/2023 Alcoholic cirrhosis (HCC) [K70.30] 05/06/2023 Alcohol withdrawal syndrome with complication (*05/07/2023 05/10/2023 Delirium [R41.0] 05/08/2023 05/10/2023 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] 05/10/2023 Cellulitis of lower leg [L03.119] 02/05/2024 Cellulitis of left lower extremity [L03.116] 02/17/2024 Hyponatremia [E87.1] 02/19/2024 Hypokalemia [E87.6] 02/19/2024 Sepsis without acute organ dysfunction (HCC) [A*02/19/2024 Cirrhosis of liver (HCC) [K74.60] 10/15/2018 Diarrhea of presumed infectious origin [R19.7] 02/19/2024 Cellulitis of left leg [L03.116] 02/19/2024 02/22/2024 Cellulitis [L03.90] 02/21/2024 02/22/2024 Chronic anemia [D64.9] 02/21/2024 Lymphedema of left leg [I89.0] 02/22/2024 Cellulitis [L03.90] 02/22/2024 Encounter Status:Closed by LARISA PUCKETT on 03/05/24 Normal [facility] METABOLIC PANE Hussein 03-05-2024 Albumin [Mass/Vol] 3.8 g/dL Normal 3.2-5.3 [facility] Comment on above: Performed By: #### C , 70652-2, 29054-8, CBCA #### [facility] ([id number]) [address] [place] [address] 27338 ALP [Catalytic activity/Vol] 82 U/L Normal 39-130 [facility] Comment on above: Performed By: #### C CORTEZ, , 71510-9, CBCA #### [facility] ([id number]) [address] [place] [address] 78931 ALT [Catalytic activity/Vol] 33 U/L Normal 0-40 [facility] Comment on above: Performed By: #### C CORTEZ, , 78728-2, CBCA #### [facility] ([id number]) [address] [place] [address] 67158 Anion gap [Moles/Vol] 7 mmol/L Normal 5-15 [facility] Comment on above: Performed By: #### C CORTEZ, , 79539-5, CBCA #### [facility] ([id number]) [address] [place] [address] 00444 AST [Catalytic activity/Vol] 56 U/L High 0-41 [facility] Comment on above: Performed By: #### C CORTEZ, , 07248-3, CBCA #### [facility] ([id number]) [address] [place] [address] 53848 Bilirubin [Mass/Vol] 0.7 mg/dL Normal 0.3-1.2 [facility] Comment on above: Performed By: #### C CORTEZ, , 95649-8, CBCA #### [facility] ([id number]) [address] [place] [address] 24156 Calcium [Mass/Vol] 8.8 mg/dL Normal 8.5-10.5 [facility] Comment on above: Performed By: #### C CORTEZ, , 85393-3, CBCA #### [facility] ([id number]) [address] [place] [address] 29417 Chloride [Moles/Vol] 105 mmol/L Normal 98-109 [facility] Comment on above: Performed By: #### C CORTEZ, , 17915-7, CBCA #### [facility] ([id number]) [address] [place] [address] 44600 CO2 [Moles/Vol] 25 mmol/L Normal 22-32 [facility] Comment on above: Performed By: #### C CORTEZ, , 67532-5, CBCA #### [facility] ([id number]) [address] [place] [address] 89089 Creatinine [Mass/Vol] 1.19 mg/dL Normal 0.70-1.20 [facility] Comment on above: Result Comment: METH OD TRACEABLE TO IDMS STANDARD Performed By: #### C CORTEZ, , 27865-0, CBCA #### [facility] ([id number]) [address] [place] [address] 92115 GFR/1.73 sq M.predicted among non-blacks MDRD (S/P/Bld) [Vol rate/Area] 72 mL/min/{1.73_m2} Normal >59 [facility] Comment on above: Result Comment: Reported eGFR is based on the CKD-EPI 1 equation that does not use a race coefficient. Performed By: #### C CORTEZ, 76447-5, 77038-3, CBCA #### [facility] ([id number]) [address] [place] [address] 94238 Glucose [Mass/Vol] 90 mg/dL Normal 65-99 [facility] Comment on above: Performed By: #### C CORTEZ, 70688-8, 54983-6, CBCA #### [facility] ([id number]) [address] [place] [address] 60858 Potassium [Moles/Vol] 3.6 mmol/L Normal 3.5-5.0 [facility] Comment on above: Performed By: #### C CORTEZ, , 90848-1, CBCA #### [facility] ([id number]) [address] [place] [address] 51424 Protein [Mass/Vol] 7.4 g/dL Normal 6.0-8.0 [facility] Comment on above: Performed By: #### C CORTEZ, , 23571-7, CBCA #### [facility] ([id number]) [address] [place] [address] 35367 Sodium [Moles/Vol] 137 mmol/L Normal 134-146 [facility] Comment on above: Performed By: #### C CORTEZ, , 84925-6, CBCA #### [facility] ([id number]) [address] [place] [address] 72093 Urea nitrogen [Mass/Vol] 7 mg/dL Normal 5-23 [facility] Comment on above: Performed By: #### C CORTEZ, , 32487-2, CBCA #### [facility] ([id number]) [address] [place] [address] 89933 MAGNESIUMon 03-05-2024 Magnesium [Mass/Vol] 1.8 mg/dL Normal 1.8-2.6 [facility] Comment on above: Performed By: #### C CORTEZ, , 91993-2, CBCA #### [facility] ([id number]) [address] [place] [address] 96307 Troponin I.cardiac High sens itivity method [Mass/Vol]on 03-05-2024 1 HOUR TROP I, HIGH SENSITIVITY 4 ng/L Normal <21 [facility] Comment on above: Performed By: #### 8 9579-7 #### [facility] ([id number]) [address] [facility], [place] [address] TROPONIN I, HIGH SENSITIVITY 4 ng/L Normal <21 [facility] Comment on above: Performed By: #### C MP, 78671-6, 18462-0, CBCA #### [facility] ([id number]) [address] [facility], [place] [address] XR CHEST 1 VWon 03-05-2024 XR CHEST 1 VW XR CHEST 1 VW XR CHEST 1 VW HISTORY: Syncope, cough COMPARISON: None FINDINGS: AP upright film obtained. The cardiomediastinal silhouette is within normal limits. No pleural effusion or pneumothorax. No consolidation. IMPRESSION: * No radiographic evidence of acute cardiopulmonary process. Approved by Resident: Gamal Reyna DO on 03/05/2024 10:01 PM Harvey Dixon MD have personally reviewed the image(s) and agree with and/or edited the report Finalized by Harvey Marks MD on 03/05/2024 10:04 PM Normal [facility] CNPNon 02-24-2024 CNPN Telephone (PODCCP) GALINDO SNOW ([id number]) 1970 M Date Time Provider Department 02/24/24 SHERLEY TAYLOR PODCCP During your visit today, we recorded the following information about you: Sherley Taylor RN 02/24/2024 4:18 PM Signed Transitional Care Management (TCM) [facility] Provider Action / FYI: na SUMMARY: Outreach type: INITIAL OUTREACH Discharge Network Status: In-Network Discharge Source of Patient: [facility] TCM Discharge Report Patient discharged from [facility] on 02.22.24. Admitted for Lymphedema of left leg Contact made with patient: No - 2nd unsuccessful attempt - end outreach and close encounter. Sherley Taylor RN February 24, 2024 4:18 PM Allergies As of Date: 02/24/2024 Noted Allergy Reaction DILAUDID (HYDROMORPHONE (BULK)) 11/03/2014 1 - Mental Status Change 9 - Itching Date Reviewed: 02/22/2024 Reviewed by: Karlo Chacon - Fully Assessed Reason for Visit: Transition Of Care [4074] Prescriptions as of 02/24/2024 - pantoprazole DR (PROTONIX) 40 mg tablet Take 1 tablet by mouth two times a day before meals at 6 am and 4 pm. - lisinopril (ZESTRIL) 40 mg tablet Take 1 tablet by mouth once daily. - hydrOXYzine pamoate (VISTARIL) 50 mg capsule Take 1 capsule by mouth three times a day as needed for anxiety. - testosterone cypionate (DEPO-TESTOSTERONE) 200 mg/mL injection Inject 1 mL intramuscularly one time a week for 180 days. - sildenafil (VIAGRA) 100 mg tablet Take 1 tablet by mouth as needed. 30-60 minutes before sexual intercourse - magnesium oxide (MAG-OX) 400 mg (241.3 mg magnesium) tablet Take 1 tablet by mouth once daily. - thiamine (VITAMIN B1) 100 mg tablet 1 tablet by ORAL/FEEDING TUBE route three times a day. - venlafaxine ER (EFFEXOR XR) 37.5 mg 24 hr capsule Take 1 capsule by mouth daily with breakfast. - hydroCHLOROthiazide 12.5 mg capsule Take 1 capsule by mouth once daily. - therapeutic multivitamin-minerals (THERA M PLUS, FERROUS FUMARAT,) 9 mg iron-400 mcg tablet Take 1 tablet by mouth once daily. Meds Comments as of 12/30/2019: Pt stopped taking medications about 2 weeks ago- restarted 12/27 Problem List As Of Date 02/24/2024 Noted Resolved Thrombocytopenia (HCC) [D69.6] 07/01/2013 Gastropathy [K31.9] Alcohol use disorder [F10.90] Gallstones [K80.20] PUD (peptic ulcer disease) [K27.9] GERD (gastroesophageal reflux disease) [K21.9] 11/03/2014 PTSD (post-traumatic stress disorder) [F43.10] 11/03/2014 Numbness and tingling of left leg [R20.0, R20.2]10/22/2016 Cervicalgia [M54.2] 10/22/2016 Chronic neck pain [M54.2, G89.29] 10/22/2016 Sprain of anterior talofibular ligament of righ*07/07/2017 Lateral epicondylitis of left elbow [M77.12] 11/11/2017 Arthralgia of right acromioclavicular joint [M2*04/21/2018 Anxiety [F41.9] 06/14/2018 GI bleed [K92.2] 12/30/2019 01/01/2020 Non compliance with medical treatment [Z91.199] 12/30/2019 Abdominal pain [R10.9] 08/29/2020 Alcoholic cirrhosis of liver without ascites (H*03/01/2022 History of esophageal varices [Z87.19] 03/01/2022 Hypogonadism in male [E29.1] 05/09/2022 Essential hypertension [I10] 08/10/2022 Acute upper GI bleeding [K92.2] 03/30/2023 04/04/2023 Bleeding esophageal varices (HCC) [I85.01] 03/31/2023 04/04/2023 Hematemesis with nausea [K92.0] 03/31/2023 04/11/2023 Alcohol abuse [F10.10] 03/31/2023 Alcohol withdrawal delirium (HCC) [F10.931] 03/31/2023 Upper GI bleed [K92.2] 04/10/2023 04/11/2023 LLQ abdominal pain [R10.32] 04/10/2023 04/11/2023 Hematemesis without nausea [K92.0] 04/10/2023 04/11/2023 Nicotine use disorder, F17.2 [F17.200] 04/10/2023 Acute upper GI bleed [K92.2] 05/02/2023 05/03/2023 Severe protein-calorie malnutrition (HCC) [E43] 05/03/2023 GI bleeding [K92.2] 05/03/2023 05/04/2023 Alcohol use disorder, severe, dependence (HCC) *05/04/2023 Hematemesis [K92.0] 05/06/2023 05/10/2023 Withdrawal symptoms, alcohol, with delirium (HC*05/06/2023 05/10/2023 Acute encephalopathy [G93.40] 05/06/2023 05/10/2023 Alcoholic cirrhosis (HCC) [K70.30] 05/06/2023 Alcohol withdrawal syndrome with complication (*05/07/2023 05/10/2023 Delirium [R41.0] 05/08/2023 05/10/2023 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] 05/10/2023 Cellulitis of lower leg [L03.119] 02/05/2024 Cellulitis of left lower extremity [L03.116] 02/17/2024 Hyponatremia [E87.1] 02/19/2024 Hypokalemia [E87.6] 02/19/2024 Sepsis without acute organ dysfunction (HCC) [A*02/19/2024 Cirrhosis of liver (HCC) [K74.60] 10/15/2018 Diarrhea of presumed infectious origin [R19.7] 02/19/2024 Cellulitis of left leg [L03.116] 02/19/2024 02/22/2024 Cellulitis [L03.90] 02/21/2024 02/22/2024 Chronic anemia [D64.9] 02/21/2024 Lymphedema of left leg [I89.0] 02/22/2024 Cellulitis [L03.90] 02/22/2024 Encounter Status:Closed by SHERLEY TAYLOR on 02/24/24 [facility] Telephone (PODCCP) GALINDO SNOW ([id number]) 1970 M Date Time Provider Department 02/24/24 SHERLEY TAYLOR PODCCP During your visit today, we recorded the following information about you: Sherley Taylor RN 02/24/2024 11:52 AM Signed Transitional Care Management (TCM) [facility] Provider Action / FYI: na SUMMARY: Outreach type: INITIAL OUTREACH Discharge Network Status: In-Network Discharge Source of Patient: [facility] TCM Discharge Report Patient discharged from [facility] on 02.22.24. Admitted for Lymphedema of left leg Contact made with patient: No - next outreach attempt will be on next . Sherley Taylor RN February 24, 2024 11:52 AM Allergies As of Date: 02/24/2024 Noted Allergy Reaction DILAUDID (HYDROMORPHONE (BULK)) 11/03/2014 1 - Mental Status Change 9 - Itching Date Reviewed: 02/22/2024 Reviewed by: Karlo Chacon - Fully Assessed Reason for Visit: Transition Of Care [4074] Prescriptions as of 02/24/2024 - pantoprazole DR (PROTONIX) 40 mg tablet Take 1 tablet by mouth two times a day before meals at 6 am and 4 pm. - lisinopril (ZESTRIL) 40 mg tablet Take 1 tablet by mouth once daily. - hydrOXYzine pamoate (VISTARIL) 50 mg capsule Take 1 capsule by mouth three times a day as needed for anxiety. - testosterone cypionate (DEPO-TESTOSTERONE) 200 mg/mL injection Inject 1 mL intramuscularly one time a week for 180 days. - sildenafil (VIAGRA) 100 mg tablet Take 1 tablet by mouth as needed. 30-60 minutes before sexual intercourse - magnesium oxide (MAG-OX) 400 mg (241.3 mg magnesium) tablet Take 1 tablet by mouth once daily. - thiamine (VITAMIN B1) 100 mg tablet 1 tablet by ORAL/FEEDING TUBE route three times a day. - venlafaxine ER (EFFEXOR XR) 37.5 mg 24 hr capsule Take 1 capsule by mouth daily with breakfast. - hydroCHLOROthiazide 12.5 mg capsule Take 1 capsule by mouth once daily. - therapeutic multivitamin-minerals (THERA M PLUS, FERROUS FUMARAT,) 9 mg iron-400 mcg tablet Take 1 tablet by mouth once daily. Meds Comments as of 12/30/2019: Pt stopped taking medications about 2 weeks ago- restarted 12/27 Problem List As Of Date 02/24/2024 Noted Resolved Thrombocytopenia (HCC) [D69.6] 07/01/2013 Gastropathy [K31.9] Alcohol use disorder [F10.90] Gallstones [K80.20] PUD (peptic ulcer disease) [K27.9] GERD (gastroesophageal reflux disease) [K21.9] 11/03/2014 PTSD (post-traumatic stress disorder) [F43.10] 11/03/2014 Numbness and tingling of left leg [R20.0, R20.2]10/22/2016 Cervicalgia [M54.2] 10/22/2016 Chronic neck pain [M54.2, G89.29] 10/22/2016 Sprain of anterior talofibular ligament of righ*07/07/2017 Lateral epicondylitis of left elbow [M77.12] 11/11/2017 Arthralgia of right acromioclavicular joint [M2*04/21/2018 Anxiety [F41.9] 06/14/2018 GI bleed [K92.2] 12/30/2019 01/01/2020 Non compliance with medical treatment [Z91.199] 12/30/2019 Abdominal pain [R10.9] 08/29/2020 Alcoholic cirrhosis of liver without ascites (H*03/01/2022 History of esophageal varices [Z87.19] 03/01/2022 Hypogonadism in male [E29.1] 05/09/2022 Essential hypertension [I10] 08/10/2022 Acute upper GI bleeding [K92.2] 03/30/2023 04/04/2023 Bleeding esophageal varices (HCC) [I85.01] 03/31/2023 04/04/2023 Hematemesis with nausea [K92.0] 03/31/2023 04/11/2023 Alcohol abuse [F10.10] 03/31/2023 Alcohol withdrawal delirium (HCC) [F10.931] 03/31/2023 Upper GI bleed [K92.2] 04/10/2023 04/11/2023 LLQ abdominal pain [R10.32] 04/10/2023 04/11/2023 Hematemesis without nausea [K92.0] 04/10/2023 04/11/2023 Nicotine use disorder, F17.2 [F17.200] 04/10/2023 Acute upper GI bleed [K92.2] 05/02/2023 05/03/2023 Severe protein-calorie malnutrition (HCC) [E43] 05/03/2023 GI bleeding [K92.2] 05/03/2023 05/04/2023 Alcohol use disorder, severe, dependence (HCC) *05/04/2023 Hematemesis [K92.0] 05/06/2023 05/10/2023 Withdrawal symptoms, alcohol, with delirium (HC*05/06/2023 05/10/2023 Acute encephalopathy [G93.40] 05/06/2023 05/10/2023 Alcoholic cirrhosis (HCC) [K70.30] 05/06/2023 Alcohol withdrawal syndrome with complication (*05/07/2023 05/10/2023 Delirium [R41.0] 05/08/2023 05/10/2023 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] 05/10/2023 Cellulitis of lower leg [L03.119] 02/05/2024 Cellulitis of left lower extremity [L03.116] 02/17/2024 Hyponatremia [E87.1] 02/19/2024 Hypokalemia [E87.6] 02/19/2024 Sepsis without acute organ dysfunction (HCC) [A*02/19/2024 Cirrhosis of liver (HCC) [K74.60] 10/15/2018 Diarrhea of presumed infectious origin [R19.7] 02/19/2024 Cellulitis of left leg [L03.116] 02/19/2024 02/22/2024 Cellulitis [L03.90] 02/21/2024 02/22/2024 Chronic anemia [D64.9] 02/21/2024 Lymphedema of left leg [I89.0] 02/22/2024 Cellulitis [L03.90] 02/22/2024 Encounter Status:Closed by SHERLEY TAYLOR on 02/24/24 [facility] [id number] 02-22-2024 [id number] HNO ID: [id number] Author: KENIA SUN RN Service: ? Author Type: Registered Nurse Type: [id number] Filed: 02/22/2024 15:21 Note Text: Wrap your left leg with an lynda wrap especially when up moving around in around to help reduce swelling. Normal [facility] 25(OH)D3 SerPl-mCncon 2023 25-hydroxyvitamin D3 [Mass/Vol] 48.0 ng/mL Normal 31.0-80.0 [facility] Comment on above: Order Comment: Speci men Type: BLOOD SPECIMENOrdering Facility: [facility] Address: [address] [place] [address] Result Comment: Clas sification of 25 [place] Vitamin D status:Deficiency/Insufficiency: < or = 30 ng/ml.Sufficiency/Optimal Levels: 31-80 ng/mLToxicity: > 100 ng/mL.Test performed by chemiluminescent immunoassay. Performed By: #### 1 989-3 ####[facility] LABCLIA [id number] [place] [address] [place] Basic metabolic 2000 panelon 02-22-2024 Anion gap [Moles/Vol] 12 mmol/L Normal 8-15 [facility] Comment on above: Order Comment: Speci men Type: BLOOD SPECIMENOrdering Facility: [facility] Address: [address] [place] [address] Performed By: #### 2 4321-2 ####[facility] LABORATORYCLIA [id number] [place] [id number] [place] Calcium [Mass/Vol] 8.3 mg/dL Low 8.5-10.2 [facility] Comment on above: Order Comment: Speci men Type: BLOOD SPECIMENOrdering Facility: [facility] Address: [address] [place] [address] Performed By: #### 2 4321-2 ####[facility] LABORATORYCLIA [id number] [place] [address] [place] Chloride [Moles/Vol] 104 mmol/L Normal 98-107 [facility] Comment on above: Order Comment: Speci men Type: BLOOD SPECIMENOrdering Facility: [facility] Address: [address] [place] [address] Performed By: #### 2 4321-2 ####[facility] LABORATORYCLIA [id number] [place] [id number] [place] CO2 [Moles/Vol] 27 mmol/L Normal 22-30 [facility] Comment on above: Order Comment: Speci men Type: BLOOD SPECIMENOrdering Facility: [facility] Address: [address] [place] [address] Performed By: #### 2 4321-2 ####[facility] LABORATORYCLIA [id number] [place] [id number] [place] Creatinine [Mass/Vol] 0.95 mg/dL Normal 0.73-1.22 [facility] Comment on above: Order Comment: Speci men Type: BLOOD SPECIMENOrdering Facility: [facility] Address: [address] [place] [address] Performed By: #### 2 4321-2 ####[facility] LABORATORYCLIA [id number] [address] Creatinine and Glomerular filtration rate.predicted panel (S/P/Bld) 95 mL/min/1.73m??? Normal >=60 [facility] Comment on above: Order Comment: Speci men Type: BLOOD SPECIMENOrdering Facility: [facility] Address: [address] [place] [address] Result Comment: Puja mated Glomerular Filtration Rate (eGFR) is calculated using the 2020 CKD-EPI creatinine equation. This equation utilizes serum creatinine, sex, and age as parameters. The creatinine assay has traceable calibration to isotope dilution-mass spectrometry. Refer to KDIGO guidelines for clinical interpretation. In patients with unstable renal function, e.g. those with acute kidney injury, the eGFR may not accurately reflect actual GFR. Performed By: #### 2 4321-2 ####[facility] LABORATORYCLIA [id number] [place] [id number] [place] Glucose [Mass/Vol] 81 mg/dL Normal 74-99 [facility] Comment on above: Order Comment: Speci men Type: BLOOD SPECIMENOrdering Facility: [facility] Address: [address] [place] [address] Result Comment: The [place] Diabetes Association (ADA) provides guidance for cutoff values for fasting glucose and random glucose. The ADA defines fasting as no caloric intake for at least 8 hours. Fasting plasma glucose results between 100 to 125 mg/dL indicate increased risk for diabetes (prediabetes).Fasting plasma glucose results greater than or equal to 126 mg/dL meet the criteria for diagnosis of diabetes. In the absence of unequivocal hyperglycemia, results should be confirmed by repeat testing. In a patient with classic symptoms of hyperglycemia or hyperglycemic crisis, random plasma glucose results greater than or equal to 200 mg/dL meet the criteria for diagnosis of diabetes.Reference: Standards of Medical Care in Diabetes 2016, [place] [employer]. Diabetes Care. 2016.39(Suppl 1). Performed By: #### 2 4321-2 ####[facility] LABORATORYCLIA [id number] [place] [address] [place] Potassium [Moles/Vol] 3.7 mmol/L Normal 3.7-5.1 [facility] Comment on above: Order Comment: Speci men Type: BLOOD SPECIMENOrdering Facility: [facility] Address: [address] [place] [address] Performed By: #### 2 4321-2 ####[facility] LABORATORYCLIA [id number] [place] [address] [place] Sodium [Moles/Vol] 143 mmol/L Normal 136-144 [facility] Comment on above: Order Comment: Speci men Type: BLOOD SPECIMENOrdering Facility: [facility] Address: [address] [place] [address] Performed By: #### 2 4321-2 ####[facility] LABORATORYCLIA [id number] [place] [id number] [place] Urea nitrogen [Mass/Vol] 4 mg/dL Low 9-24 [facility] Comment on above: Order Comment: Speci men Type: BLOOD SPECIMENOrdering Facility: [facility] Address: [address] [place] [address] Performed By: #### 2 4321-2 ####[facility] LABORATORYCLIA [id number] [place] [id number] [place] CBC panel Auto (Bld)on 02-21 Erythrocyte distribution width (RBC) [Ratio] 18.7 % High 11.5-15.0 [facility] Comment on above: Order Comment: Speci men Type: BLOOD SPECIMENOrdering Facility: [facility] Address: [address] [place] [address] Performed By: #### 5 8410-2 ####[facility] LABORATORYCLIA [id number] [place] [id number] [place] Hematocrit (Bld) [Volume fraction] 36.0 % Low 39.0-51.0 [facility] Comment on above: Order Comment: Speci men Type: BLOOD SPECIMENOrdering Facility: [facility] Address: [address] [place] [address] Performed By: #### 5 8410-2 ####[facility] LABORATORYCLIA [id number] [address] [place] Hemoglobin (Bld) [Mass/Vol] 11.1 g/dL Low 13.0-17.0 [facility] Comment on above: Order Comment: Speci men Type: BLOOD SPECIMENOrdering Facility: [facility] Address: [address] [place] [address] Performed By: #### 5 8410-2 ####[facility] LABORATORYCLIA [id number] [place] [address] [place] MCH (RBC) [Entitic mass] 24.6 pg Low 26.0-34.0 [facility] Comment on above: Order Comment: Speci men Type: BLOOD SPECIMENOrdering Facility: [facility] Address: [address] [place] [address] Performed By: #### 5 8410-2 ####[facility] LABORATORYCLIA [id number] [place] [id number] [place] MCHC (RBC) [Mass/Vol] 30.8 g/dL Normal 30.5-36.0 [facility] Comment on above: Order Comment: Speci men Type: BLOOD SPECIMENOrdering Facility: [facility] Address: [address] [place] [address] Performed By: #### 5 8410-2 ####[facility] LABORATORYCLIA [id number] [place] [id number] [place] [facility] MCV (RBC) [Entitic vol] 79.6 fL Low 80.0-100.0 [facility] Comment on above: Order Comment: Speci men Type: BLOOD SPECIMENOrdering Facility: [facility] Address: [address] [place] [address] Performed By: #### 5 8410-2 ####[facility] LABORATORYCLIA [id number] [address] [place] Nucleated RBC (Bld) [#/Vol] 10*3/uL Normal <0.01 [facility] Comment on above: Order Comment: Speci men Type: BLOOD SPECIMENOrdering Facility: [facility] Address: [address] [place] [address] Performed By: #### 5 8410-2 ####[facility] LABORATORYCLIA [id number] [address] Platelet mean volume (Bld) [Entitic vol] 9.1 fL Normal 9.0-12.7 [facility] Comment on above: Order Comment: Speci men Type: BLOOD SPECIMENOrdering Facility: [facility] Address: [address] [place] [address] Performed By: #### 5 8410-2 ####[facility] LABORATORYCLIA [id number] [address] [place] Platelets (Bld) [#/Vol] 62 10*3/uL Low 150-400 [facility] Comment on above: Order Comment: Speci men Type: BLOOD SPECIMENOrdering Facility: [facility] Address: [address] [place] [address] Result Comment: No c lot detected. Performed By: #### 5 8410-2 ####[facility] LABORATORYCLIA [id number] [place] [address] [place] RBC (Bld) [#/Vol] 4.52 10*6/uL Normal 4.20-6.00 [facility] Comment on above: Order Comment: Speci men Type: BLOOD SPECIMENOrdering Facility: [facility] Address: [address] [place] [address] Performed By: #### 5 8410-2 ####[facility] LABORATORYCLIA [id number] [place] [id number] [place] WBC (Bld) [#/Vol] 1.88 10*3/uL Low 3.70-11.00 [facility] Comment on above: Order Comment: Speci men Type: BLOOD SPECIMENOrdering Facility: [facility] Address: [address] [place] [address] Performed By: #### 5 8410-2 ####[facility] LABORATORYCLIA [id number] [place] [id number] [place] CNDSon 02-22-2024 CNDS Normal [facility] CONSULTon 02-22-2024 CONSULT Normal [facility] CONSULT [facility] Reagin and Treponema pallidu m IgG and IgM [Interp]on 02-22-2024 T. pallidum IgG+IgM IA Ql (S) Non-Reactive Normal Nonreactive [facility] Comment on above: Order Comment: Speci men Type: BLOOD SPECIMENOrdering Facility: [facility] Address: [address] [place] [address] Performed By: #### 7 3752-8 ####[facility] LABCLIA [id number] [place] [address] [place] Reagin+T pallidum IgG+IgM Se rPl-Impon 02-22-2024 Reagin and Treponema pallidum IgG and IgM [Interp] Cannot exclude recent Treponemal infection if specimen collected within 7-10 days after appearance of suspect lesions or 2-3 weeks after an exposure. Clinical correlation is required. Normal [facility] Comment on above: Order Comment: Speci men Type: BLOOD SPECIMENOrdering Facility: [facility] Address: [address] [place] [address] Performed By: #### 7 3752-8 ####[facility] LABCLIA [id number] [place] [address] [place] VITAMIN B1 (THIAMINE), WHOLE BLOODon 02-22-2024 Thiamine (Bld) [Moles/Vol] 259.4 nmol/L High 84.3-213.3 [facility] Comment on above: Order Comment: Speci akira Type: BLOOD SPECIMENOrdering Facility: [facility] Address: [address] [place] [address] Result Comment: This assay measures the concentration of thiamine diphosphate (TDP), the primary active form of vitamin B1. Approximately 90 percent of vitamin B1 present in whole blood is TDP. Thiamine and thiamine monophosphate, which comprise the remaining 10 percent, are not measured.This test was developed and its performance characteristics determined by [facility] Pathology and Laboratory Medicine [place] ([facility]). It has not been cleared or approved by the FDA. [facility] is regulated under CLIA as qualified to perform high-complexity testing. This test is used for clinical purposes. It should not be regarded as investigational or for research. Performed By: #### B 1WB ####[facility] LABCLIA [id number] [place] [address] [place] VITAMIN B6/PYRIDOXINon 02-21 VITAMIN B6 88.5 nmol/L Normal 20.0-125.0 [facility] Comment on above: Order Comment: Speci akira Type: BLOOD SPECIMENOrdering Facility: [facility] Address: [address] [place] [address] Result Comment: INTE RPRETIVE INFORMATION: Vitamin B6 (Pyridoxal 5-Phosphate)Pyridoxal 5'-phosphate measured in a specimen collected followingan 8-hour or overnight fast accurately indicates vitamin O3suuifrpbhiw status. Non-fasting specimen concentration reflectsrecent vitamin intake.This test was developed and its performance characteristicsdetermined by [facility]. It has not been cleared orapproved by the [place] Food and Drug Administration. This test wasperformed in a CLIA certified laboratory and is intended forclinical purposes.Performed By: [facility] [place] [id number] Director: Edwin Butts MD, PhDCLIA Number: [id number] Performed By: #### V ITB6 ####[facility]ORATORIESCLIA [id number] [place] [address] Vit B12 [facility] 024 Cobalamin (Vitamin B12) [Mass/Vol] 938 pg/mL Normal 232-1245 [facility] Comment on above: Order Comment: Speci men Type: BLOOD SPECIMENOrdering Facility: [facility] Address: [address] [place] [address] Performed By: #### 2 132-9 ####[facility] LABORATORYCLIA [id number] [place] [id number] [place] CBC W Auto Differential pane l (Bld)on 02-21-2024 Basophils (Bld) [#/Vol] 10*3/uL Normal <0.11 [facility] Comment on above: Order Comment: Speci men Type: BLOOD SPECIMENOrdering Facility: [facility] Address: [address] [place] [address] Performed By: #### 5 7021-8 ####[facility] LABORATORYCLIA [id number] [place] [id number] [place] Basophils/100 WBC (Bld) 0.9 % Normal [facility] Comment on above: Order Comment: Speci men Type: BLOOD SPECIMENOrdering Facility: [facility] Address: [address] [place] [address] Performed By: #### 5 7021-8 ####[facility] LABORATORYCLIA [id number] [place] [id number] [place] Differential cell count method Nom (Bld) Auto Normal [facility] Comment on above: Order Comment: Speci men Type: BLOOD SPECIMENOrdering Facility: [facility] Address: [address] [place] [address] Performed By: #### 5 7021-8 ####[facility] LABORATORYCLIA [id number] [place] [id number] [place] Eosinophils (Bld) [#/Vol] 0.06 10*3/uL Normal <0.46 [facility] Comment on above: Order Comment: Speci men Type: BLOOD SPECIMENOrdering Facility: [facility] Address: [address] [place] [address] Performed By: #### 5 7021-8 ####[facility] LABORATORYCLIA [id number] [place] [address] [place] Eosinophils/100 WBC (Bld) 2.6 % Normal [facility] Comment on above: Order Comment: Speci men Type: BLOOD SPECIMENOrdering Facility: [facility] Address: [address] [place] [address] Performed By: #### 5 7021-8 ####[facility] LABORATORYCLIA [id number] [place] [address] [place] Erythrocyte distribution width (RBC) [Ratio] 18.5 % High 11.5-15.0 [facility] Comment on above: Order Comment: Speci men Type: BLOOD SPECIMENOrdering Facility: [facility] Address: [address] [place] [address] Performed By: #### 5 7021-8 ####[facility] LABORATORYCLIA [id number] [place] [address] [place] Hematocrit (Bld) [Volume fraction] 38.9 % Low 39.0-51.0 [facility] Comment on above: Order Comment: Speci men Type: BLOOD SPECIMENOrdering Facility: [facility] Address: [address] [place] [address] Performed By: #### 5 7021-8 ####[facility] LABORATORYCLIA [id number] [place] [address] [place] Hemoglobin (Bld) [Mass/Vol] 12.1 g/dL Low 13.0-17.0 [facility] Comment on above: Order Comment: Speci men Type: BLOOD SPECIMENOrdering Facility: [facility] Address: [address] [place] [address] Performed By: #### 5 7021-8 ####[facility] LABORATORYCLIA [id number] [place] [address] [place] Immature granulocytes (Bld) [#/Vol] 10*3/uL Normal <0.10 [facility] Comment on above: Order Comment: Speci men Type: BLOOD SPECIMENOrdering Facility: [facility] Address: [address] [place] [address] Performed By: #### 5 7021-8 ####[facility] LABORATORYCLIA [id number] [place] [address] [place] Immature granulocytes/100 WBC (Bld) 0.4 % Normal [facility] Comment on above: Order Comment: Speci men Type: BLOOD SPECIMENOrdering Facility: [facility] Address: [address] [place] [address] Performed By: #### 5 7021-8 ####[facility] LABORATORYCLIA [id number] [place] [address] [place] Lymphocytes (Bld) [#/Vol] 0.64 10*3/uL Low 1.00-4.00 [facility] Comment on above: Order Comment: Speci men Type: BLOOD SPECIMENOrdering Facility: [facility] Address: [address] [place] [address] Performed By: #### 5 7021-8 ####[facility] LABORATORYCLIA [id number] [place] [address] [place] Lymphocytes/100 WBC (Bld) 27.4 % Normal [facility] Comment on above: Order Comment: Speci men Type: BLOOD SPECIMENOrdering Facility: [facility] Address: [address] [place] [address] Performed By: #### 5 7021-8 ####[facility] LABORATORYCLIA [id number] [place] [id number] [place] MCH (RBC) [Entitic mass] 25.0 pg Low 26.0-34.0 [facility] Comment on above: Order Comment: Speci men Type: BLOOD SPECIMENOrdering Facility: [facility] Address: [address] [place] [address] Performed By: #### 5 7021-8 ####[facility] LABORATORYCLIA [id number] [place] [id number] [place] MCHC (RBC) [Mass/Vol] 31.1 g/dL Normal 30.5-36.0 [facility] Comment on above: Order Comment: Speci men Type: BLOOD SPECIMENOrdering Facility: [facility] Address: [address] [place] [address] Performed By: #### 5 7021-8 ####[facility] LABORATORYCLIA [id number] [place] [id number] [place] MCV (RBC) [Entitic vol] 80.4 fL Normal 80.0-100.0 [facility] Comment on above: Order Comment: Speci men Type: BLOOD SPECIMENOrdering Facility: [facility] Address: [address] [place] [address] Performed By: #### 5 7021-8 ####[facility] LABORATORYCLIA [id number] [address] [place] [facility] Monocytes (Bld) [#/Vol] 0.17 10*3/uL Normal <0.87 [facility] Comment on above: Order Comment: Speci men Type: BLOOD SPECIMENOrdering Facility: [facility] Address: [address] [place] [address] Performed By: #### 5 7021-8 ####[facility] LABORATORYCLIA [id number] [address] Monocytes/100 WBC (Bld) 7.3 % Normal [facility] Comment on above: Order Comment: Speci men Type: BLOOD SPECIMENOrdering Facility: [facility] Address: [address] [place] [address] Performed By: #### 5 7021-8 ####[facility] LABORATORYCLIA [id number] [place] [id number] [place] Neutrophils (Bld) [#/Vol] 1.44 10*3/uL Low 1.45-7.50 [facility] Comment on above: Order Comment: Speci men Type: BLOOD SPECIMENOrdering Facility: [facility] Address: [address] [place] [address] Performed By: #### 5 7021-8 ####[facility] LABORATORYCLIA [id number] [place] [address] [place] Neutrophils/100 WBC (Bld) 61.4 % Normal [facility] Comment on above: Order Comment: Speci men Type: BLOOD SPECIMENOrdering Facility: [facility] Address: [address] [place] [address] Performed By: #### 5 7021-8 ####[facility] LABORATORYCLIA [id number] [place] [id number] [place] Nucleated RBC (Bld) [#/Vol] 10*3/uL Normal <0.01 [facility] Comment on above: Order Comment: Speci men Type: BLOOD SPECIMENOrdering Facility: [facility] Address: [address] [place] [address] Performed By: #### 5 7021-8 ####[facility] LABORATORYCLIA [id number] [place] [address] [place] Nucleated RBC/100 WBC (Bld) [Ratio] 0.0 /100 WBC Normal [facility] Comment on above: Order Comment: Speci men Type: BLOOD SPECIMENOrdering Facility: [facility] Address: [address] [place] [address] Performed By: #### 5 7021-8 ####[facility] LABORATORYCLIA [id number] [place] [address] [place] Platelet mean volume (Bld) [Entitic vol] 8.8 fL Low 9.0-12.7 [facility] Comment on above: Order Comment: Speci men Type: BLOOD SPECIMENOrdering Facility: [facility] Address: [address] [place] [address] Performed By: #### 5 7021-8 ####[facility] LABORATORYCLIA [id number] [place] [id number] [place] Platelets (Bld) [#/Vol] 75 10*3/uL Low 150-400 [facility] Comment on above: Order Comment: Speci men Type: BLOOD SPECIMENOrdering Facility: [facility] Address: [address] [place] [address] Result Comment: No c lot detected. Performed By: #### 5 7021-8 ####[facility] LABORATORYCLIA [id number] [place] [id number] [place] RBC (Bld) [#/Vol] 4.84 10*6/uL Normal 4.20-6.00 [facility] Comment on above: Order Comment: Speci men Type: BLOOD SPECIMENOrdering Facility: [facility] Address: [address] [place] [address] Performed By: #### 5 7021-8 ####[facility] LABORATORYCLIA [id number] [place] [id number] [place] WBC (Bld) [#/Vol] 2.34 10*3/uL Low 3.70-11.00 [facility] Comment on above: Order Comment: Speci men Type: BLOOD SPECIMENOrdering Facility: [facility] Address: [address] [place] [address] Performed By: #### 5 7021-8 ####[facility] LABORATORYCLIA [id number] [place] [id number] [facility] Comprehensive metabolic 2000 panelon 02-21-2024 Albumin [Mass/Vol] 4.2 g/dL Normal 3.9-4.9 [facility] Comment on above: Order Comment: Speci men Type: BLOOD SPECIMENOrdering Facility: [facility] Address: [address] [place] [address] Performed By: #### 2 4323-8 ####[facility] LABORATORYCLIA [id number] [place] [id number] [place] ALP [Catalytic activity/Vol] 98 U/L Normal 38-113 [facility] Comment on above: Order Comment: Speci men Type: BLOOD SPECIMENOrdering Facility: [facility] Address: [address] [place] [address] Performed By: #### 2 4323-8 ####[facility] LABORATORYCLIA [id number] [place] [id number] [place] ALT [Catalytic activity/Vol] 29 U/L Normal 10-54 [facility] Comment on above: Order Comment: Speci men Type: BLOOD SPECIMENOrdering Facility: [facility] Address: [address] [place] [address] Performed By: #### 2 4323-8 ####[facility] LABORATORYCLIA [id number] [place] [id number] [place] Anion gap [Moles/Vol] 10 mmol/L Normal 8-15 [facility] Comment on above: Order Comment: Speci men Type: BLOOD SPECIMENOrdering Facility: [facility] Address: [address] [place] [address] Performed By: #### 2 4323-8 ####[facility] LABORATORYCLIA [id number] [place] [address] [place] AST [Catalytic activity/Vol] 81 U/L High 14-40 [facility] Comment on above: Order Comment: Speci men Type: BLOOD SPECIMENOrdering Facility: [facility] Address: [address] [place] [address] Performed By: #### 2 4323-8 ####[facility] LABORATORYCLIA [id number] [place] [address] [place] Bilirubin [Mass/Vol] 0.4 mg/dL Normal 0.2-1.3 [facility] Comment on above: Order Comment: Speci men Type: BLOOD SPECIMENOrdering Facility: [facility] Address: [address] [place] [address] Performed By: #### 2 4323-8 ####[facility] LABORATORYCLIA [id number] [place] [id number] [place] Calcium [Mass/Vol] 8.9 mg/dL Normal 8.5-10.2 [facility] Comment on above: Order Comment: Speci men Type: BLOOD SPECIMENOrdering Facility: [facility] Address: [address] [place] [address] Performed By: #### 2 4323-8 ####[facility] LABORATORYCLIA [id number] [place] [id number] [place] Chloride [Moles/Vol] 104 mmol/L Normal 98-107 [facility] Comment on above: Order Comment: Speci men Type: BLOOD SPECIMENOrdering Facility: [facility] Address: [address] [place] [address] Performed By: #### 2 4323-8 ####[facility] LABORATORYCLIA [id number] [place] [id number] [place] CO2 [Moles/Vol] 28 mmol/L Normal 22-30 [facility] Comment on above: Order Comment: Speci men Type: BLOOD SPECIMENOrdering Facility: [facility] Address: [address] [place] [address] Performed By: #### 2 4323-8 ####[facility] LABORATORYCLIA [id number] [place] [id number] [place] Creatinine [Mass/Vol] 0.95 mg/dL Normal 0.73-1.22 [facility] Comment on above: Order Comment: Speci men Type: BLOOD SPECIMENOrdering Facility: [facility] Address: [address] [place] [address] Performed By: #### 2 4323-8 ####[facility] LABORATORYCLIA [id number] [place] [id number] [place] Creatinine and Glomerular filtration rate.predicted panel (S/P/Bld) 95 mL/min/1.73m??? Normal >=60 [facility] Comment on above: Order Comment: Speci men Type: BLOOD SPECIMENOrdering Facility: [facility] Address: [address] [place] [address] Result Comment: Puja mated Glomerular Filtration Rate (eGFR) is calculated using the 2020 CKD-EPI creatinine equation. This equation utilizes serum creatinine, sex, and age as parameters. The creatinine assay has traceable calibration to isotope dilution-mass spectrometry. Refer to KDIGO guidelines for clinical interpretation. In patients with unstable renal function, e.g. those with acute kidney injury, the eGFR may not accurately reflect actual GFR. Performed By: #### 2 4323-8 ####[facility] LABORATORYCLIA [id number] [place] [id number] [place] Glucose [Mass/Vol] 94 mg/dL Normal 74-99 [facility] Comment on above: Order Comment: Speci men Type: BLOOD SPECIMENOrdering Facility: [facility] Address: [address] [place] [address] Result Comment: The [place] [employer] (ADA) provides guidance for cutoff values for fasting glucose and random glucose. The ADA defines fasting as no caloric intake for at least 8 hours. Fasting plasma glucose results between 100 to 125 mg/dL indicate increased risk for diabetes (prediabetes).Fasting plasma glucose results greater than or equal to 126 mg/dL meet the criteria for diagnosis of diabetes. In the absence of unequivocal hyperglycemia, results should be confirmed by repeat testing. In a patient with classic symptoms of hyperglycemia or hyperglycemic crisis, random plasma glucose results greater than or equal to 200 mg/dL meet the criteria for diagnosis of diabetes.Reference: Standards of Medical Care in Diabetes 2016, [place] [employer]. Diabetes Care. 2016.39(Suppl 1). Performed By: #### 2 4323-8 ####[facility] LABORATORYCLIA [id number] [place] [address] [place] Potassium [Moles/Vol] 4.0 mmol/L Normal 3.7-5.1 [facility] Comment on above: Order Comment: Speci men Type: BLOOD SPECIMENOrdering Facility: [facility] Address: [address] [place] [address] Performed By: #### 2 4323-8 ####[facility] LABORATORYCLIA [id number] [place] [id number] [place] Protein [Mass/Vol] 7.4 g/dL Normal 6.3-8.0 [facility] Comment on above: Order Comment: Speci men Type: BLOOD SPECIMENOrdering Facility: [facility] Address: [address] [place] [address] Performed By: #### 2 4323-8 ####[facility] LABORATORYCLIA [id number] [place] [id number] [place] Sodium [Moles/Vol] 142 mmol/L Normal 136-144 [facility] Comment on above: Order Comment: Speci men Type: BLOOD SPECIMENOrdering Facility: [facility] Address: [address] [place] [address] Performed By: #### 2 4323-8 ####[facility] LABORATORYCLIA [id number] [place] [address] [place] Urea nitrogen [Mass/Vol] 2 mg/dL Low 9-24 [facility] Comment on above: Order Comment: Speci men Type: BLOOD SPECIMENOrdering Facility: [facility] Address: [address] [place] [address] Performed By: #### 2 4323-8 ####[facility] LABORATORYCLIA [id number] [address] [place] ED NOTEon 02-21-2024 ED NOTE HNO ID: [id number] Author: LOLA KING RN Service: ? Author Type: Registered Nurse Type: ED Notes Filed: 02/21/2024 13:45 Note Text: Bed: 06-ED Expected date: 02/21/24 Expected time: Means of arrival: [facility] Comments: SI with plan Normal [facility] ED PROV NOTEon 02-21-2024 ED PROV NOTE Normal [facility] Ethanol SerPl-mCncon 024 Ethanol [Mass/Vol] 210 mg/dL High <11 [facility] Comment on above: Order Comment: Speci men Type: BLOOD SPECIMENOrdering Facility: [facility] Address: [address] [place] [address] Result Comment: Valu es > 80 mg/dL may indicate intoxication Performed By: #### 5 643-2 ####[facility] LABORATORYCLIA [id number] [address] [place] HISTORY PHYSICALon HISTORY PHYSICAL Normal [facility] CASE MANAGEMon 02-20-2024 CASE MANAGEM Normal [facility] CNDSon 02-20-2024 CNDS Normal [facility] Bacteria Bld Culton 02-19-20 24 Bacteria identified Cx Nom (Bld) CULTURE, BLOOD: No growth 5 days Normal [facility] Comment on above: Performed By: #### 6 00-7 ####[facility] LABCLIA [id number] [facility] [address] [place] C diff Tox gens Stl Ql RUI+p robeon 02-19-2024 C. difficile toxin genes RUI+probe Ql (Stl) Negative Normal Negative for C. difficile toxin by PCR [facility] Comment on above: Order Comment: Speci men Type: STOOL SPECIMENOrdering Facility: [facility] Address: [address] [place] [address] Performed By: #### 5 4067-4 ####[facility] LABCLIA [id number] [place] [address] [place] CASE MGT INIT ASSESon 2023 CASE MGT INIT ASS Normal [facility] CBC panel Auto (Bld)on 02-18 Erythrocyte distribution width (RBC) [Ratio] 18.5 % High 11.5-15.0 [facility] Comment on above: Order Comment: Speci men Type: BLOOD SPECIMENOrdering Facility: [facility] Address: [address] [place] [address] Performed By: #### 5 8410-2 ####[facility] LABORATORYCLIA [id number] [place] [address] [place] Hematocrit (Bld) [Volume fraction] 34.3 % Low 39.0-51.0 [facility] Comment on above: Order Comment: Speci men Type: BLOOD SPECIMENOrdering Facility: [facility] Address: [address] [place] [address] Performed By: #### 5 8410-2 ####[facility] LABORATORYCLIA [id number] [place] [id number] [place] Hemoglobin (Bld) [Mass/Vol] 10.7 g/dL Low 13.0-17.0 [facility] Comment on above: Order Comment: Speci men Type: BLOOD SPECIMENOrdering Facility: [facility] Address: [address] [place] [address] Performed By: #### 5 8410-2 ####[facility] LABORATORYCLIA [id number] [place] [id number] [place] MCH (RBC) [Entitic mass] 24.8 pg Low 26.0-34.0 [facility] Comment on above: Order Comment: Speci men Type: BLOOD SPECIMENOrdering Facility: [facility] Address: [address] [place] [address] Performed By: #### 5 8410-2 ####[facility] LABORATORYCLIA [id number] [address] [place] [facility] MCHC (RBC) [Mass/Vol] 31.2 g/dL Normal 30.5-36.0 [facility] Comment on above: Order Comment: Speci men Type: BLOOD SPECIMENOrdering Facility: [facility] Address: [address] [place] [address] Performed By: #### 5 8410-2 ####[facility] LABORATORYCLIA [id number] [address] [place] MCV (RBC) [Entitic vol] 79.4 fL Low 80.0-100.0 [facility] Comment on above: Order Comment: Speci men Type: BLOOD SPECIMENOrdering Facility: [facility] Address: [address] [place] [address] Performed By: #### 5 8410-2 ####[facility] LABORATORYCLIA [id number] [place] [address] [place] Nucleated RBC (Bld) [#/Vol] 10*3/uL Normal <0.01 [facility] Comment on above: Order Comment: Speci men Type: BLOOD SPECIMENOrdering Facility: [facility] Address: [address] [place] [address] Performed By: #### 5 8410-2 ####[facility] LABORATORYCLIA [id number] [place] [address] [place] Platelet mean volume (Bld) [Entitic vol] 9.6 fL Normal 9.0-12.7 [facility] Comment on above: Order Comment: Speci men Type: BLOOD SPECIMENOrdering Facility: [facility] Address: [address] [place] [address] Performed By: #### 5 8410-2 ####[facility] LABORATORYCLIA [id number] [place] [address] [place] Platelets (Bld) [#/Vol] 67 10*3/uL Low 150-400 [facility] Comment on above: Order Comment: Speci men Type: BLOOD SPECIMENOrdering Facility: [facility] Address: [address] [place] [address] Performed By: #### 5 8410-2 ####[facility] LABORATORYCLIA [id number] [place] [address] [place] RBC (Bld) [#/Vol] 4.32 10*6/uL Normal 4.20-6.00 [facility] Comment on above: Order Comment: Speci men Type: BLOOD SPECIMENOrdering Facility: [facility] Address: [address] [place] [address] Performed By: #### 5 8410-2 ####[facility] LABORATORYCLIA [id number] [place] [address] [place] WBC (Bld) [#/Vol] 2.05 10*3/uL Low 3.70-11.00 [facility] Comment on above: Order Comment: Speci men Type: BLOOD SPECIMENOrdering Facility: [facility] Address: [address] [place] [address] Performed By: #### 5 8410-2 ####[facility] LABORATORYCLIA [id number] [place] [id number] [facility] [place] CONSULT PROGon 02-19-2024 CONSULT PROG Normal [facility] CRP SerPl-mCncon 02-19-2024 CRP [Mass/Vol] 0.4 mg/dL Normal <0.9 [facility] Comment on above: Order Comment: Speci men Type: BLOOD SPECIMENOrdering Facility: [facility] Address: [address] [place] [address] Performed By: #### 1 988-5, 06780-7, 81606-6 ####[facility] LABORATORYCLIA [id number] [place] [id number] [place] Comprehensive metabolic 2000 panelon 02-19-2024 Albumin [Mass/Vol] 3.7 g/dL Low 3.9-4.9 [facility] Comment on above: Order Comment: Speci men Type: BLOOD SPECIMENOrdering Facility: [facility] Address: [address] [place] [address] Performed By: #### 1 988-5, , ####[facility] LABORATORYCLIA [id number] [place] [id number] [place] ALP [Catalytic activity/Vol] 93 U/L Normal 38-113 [facility] Comment on above: Order Comment: Speci men Type: BLOOD SPECIMENOrdering Facility: [facility] Address: [address] [place] [address] Performed By: #### 1 988-5, , ####[facility] LABORATORYCLIA [id number] [place] [address] [place] ALT [Catalytic activity/Vol] 24 U/L Normal 10-54 [facility] Comment on above: Order Comment: Speci men Type: BLOOD SPECIMENOrdering Facility: [facility] Address: [address] [place] [address] Performed By: #### 1 988-5, , ####[facility] LABORATORYCLIA [id number] [place] [id number] [place] Anion gap [Moles/Vol] 12 mmol/L Normal 8-15 [facility] Comment on above: Order Comment: Speci men Type: BLOOD SPECIMENOrdering Facility: [facility] Address: [address] [place] [address] Performed By: #### 1 988-5, , ####[facility] LABORATORYCLIA [id number] [place] [id number] [place] AST [Catalytic activity/Vol] 62 U/L High 14-40 [facility] Comment on above: Order Comment: Speci men Type: BLOOD SPECIMENOrdering Facility: [facility] Address: [address] [place] [address] Performed By: #### 1 988-5, , ####[facility] LABORATORYCLIA [id number] [place] [id number] [place] Bilirubin [Mass/Vol] 0.4 mg/dL Normal 0.2-1.3 [facility] Comment on above: Order Comment: Speci men Type: BLOOD SPECIMENOrdering Facility: [facility] Address: [address] [place] [address] Performed By: #### 1 988-5, , ####[facility] LABORATORYCLIA [id number] [place] [id number] [place] Calcium [Mass/Vol] 8.7 mg/dL Normal 8.5-10.2 [facility] Comment on above: Order Comment: Speci men Type: BLOOD SPECIMENOrdering Facility: [facility] Address: [address] [place] [address] Performed By: #### 1 988-5, , ####[facility] LABORATORYCLIA [id number] [place] [address] [place] Chloride [Moles/Vol] 101 mmol/L Normal 98-107 [facility] Comment on above: Order Comment: Speci men Type: BLOOD SPECIMENOrdering Facility: [facility] Address: [address] [place] [address] Performed By: #### 1 988-5, , ####[facility] LABORATORYCLIA [id number] [place] [id number] [place] CO2 [Moles/Vol] 26 mmol/L Normal 22-30 [facility] Comment on above: Order Comment: Speci men Type: BLOOD SPECIMENOrdering Facility: [facility] Address: [address] [place] [address] Performed By: #### 1 988-5, , ####[facility] LABORATORYCLIA [id number] [place] [id number] [place] Creatinine [Mass/Vol] 1.04 mg/dL Normal 0.73-1.22 [facility] Comment on above: Order Comment: Speci men Type: BLOOD SPECIMENOrdering Facility: [facility] Address: [address] [place] [address] Performed By: #### 1 988-5, 73638-2, ####[facility] LABORATORYCLIA [id number] [place] [id number] [place] Creatinine and Glomerular filtration rate.predicted panel (S/P/Bld) 85 mL/min/1.73m??? Normal >=60 [facility] Comment on above: Order Comment: Berna champion Type: BLOOD SPECIMENOrdering Facility: [facility] Address: [address] [place] [address] Result Comment: Puja mated Glomerular Filtration Rate (eGFR) is calculated using the 2020 CKD-EPI creatinine equation. This equation utilizes serum creatinine, sex, and age as parameters. The creatinine assay has traceable calibration to isotope dilution-mass spectrometry. Refer to KDIGO guidelines for clinical interpretation. In patients with unstable renal function, e.g. those with acute kidney injury, the eGFR may not accurately reflect actual GFR. Performed By: #### 1 988-5, 90009-7, ####[facility] LABORATORYCLIA [id number] [place] [id number] [place] Glucose [Mass/Vol] 89 mg/dL Normal 74-99 [facility] Comment on above: Order Comment: Berna champion Type: BLOOD SPECIMENOrdering Facility: [facility] Address: [address] [place] [address] Result Comment: The [place] [employer] Association (ADA) provides guidance for cutoff values for fasting glucose and random glucose. The ADA defines fasting as no caloric intake for at least 8 hours. Fasting plasma glucose results between 100 to 125 mg/dL indicate increased risk for diabetes (prediabetes).Fasting plasma glucose results greater than or equal to 126 mg/dL meet the criteria for diagnosis of diabetes. In the absence of unequivocal hyperglycemia, results should be confirmed by repeat testing. In a patient with classic symptoms of hyperglycemia or hyperglycemic crisis, random plasma glucose results greater than or equal to 200 mg/dL meet the criteria for diagnosis of diabetes.Reference: Standards of Medical Care in Diabetes 2016, [place] [employer]. Diabetes Care. 2016.39(Suppl 1). Performed By: #### 1 988-5, , ####[facility] LABORATORYCLIA [id number] [place] [address] [place] Potassium [Moles/Vol] 3.9 mmol/L Normal 3.7-5.1 [facility] Comment on above: Order Comment: Speci men Type: BLOOD SPECIMENOrdering Facility: [facility] Address: [address] [place] [address] Performed By: #### 1 988-5, , ####[facility] LABORATORYCLIA [id number] [place] [id number] [place] Protein [Mass/Vol] 6.6 g/dL Normal 6.3-8.0 [facility] Comment on above: Order Comment: Speci men Type: BLOOD SPECIMENOrdering Facility: [facility] Address: [address] [place] [address] Performed By: #### 1 988-5, , ####[facility] LABORATORYCLIA [id number] [place] [id number] [place] Sodium [Moles/Vol] 139 mmol/L Normal 136-144 [facility] Comment on above: Order Comment: Speci men Type: BLOOD SPECIMENOrdering Facility: [facility] Address: [address] [place] [address] Performed By: #### 1 988-5, , ####[facility] LABORATORYCLIA [id number] [place] [id number] [place] Urea nitrogen [Mass/Vol] 3 mg/dL Low 9-24 [facility] Comment on above: Order Comment: Speci men Type: BLOOD SPECIMENOrdering Facility: [facility] Address: [address] [place] [address] Performed By: #### 1 988-5, , ####[facility] LABORATORYCLIA [id number] [place] [id number] [place] ED NOTEon 02-19-2024 ED NOTE HNO ID: [id number] Author: NADINE AGUIRRE RN Service: ? Author Type: Registered Nurse Type: ED Notes Filed: 02/19/2024 04:37 Note Text: Report to Rosio BEASLEY Normal [facility] ED PROV NOTEon 02-19-2024 ED PROV NOTE Normal [facility] ESR Westergren method (Bld) [Velocity]on 02-19-2024 ESR (Bld) [Velocity] 2 mm/h Normal 0-15 [facility] Comment on above: Order Comment: Speci men Type: BLOOD SPECIMENOrdering Facility: [facility] Address: [address] [place] [address] Performed By: #### 4 537-7 ####[facility] LABCLIA [id number] Ethanol [facility]Pl[facility] Ethanol [Mass/Vol] 35 mg/dL High <11 [facility] Comment on above: Order Comment: Speci men Type: BLOOD SPECIMENOrdering Facility: [facility] Address: [address] [place] [address] Performed By: #### 5 643-2 ####[facility] LABORATORYCLIA [id number] [place] [id number] [place] HISTORY PHYSICALon HISTORY PHYSICAL Normal [facility] Magnesium SerPl-ncon 02-18 Magnesium [Mass/Vol] 1.9 mg/dL Normal 1.7-2.3 [facility] Comment on above: Order Comment: Speci men Type: BLOOD SPECIMENOrdering Facility: [facility] Address: [address] [place] [address] Performed By: #### 1 988-5, 55722-8, 49044-4 ####[facility] LABORATORYCLIA [id number] [place] [id number] [place] NURSING PROGon 02-19-2024 NURSING PROG Normal [facility] SEPSIS LACTATE W/ REFLEX (SE COND)on 02-19-2024 Lactate [Moles/Vol] 1.9 mmol/L Normal 0.0-2.0 [facility] Comment on above: Order Comment: Speci men Type: BLOOD SPECIMENOrdering Facility: [facility] Address: [address] [place] [address] Performed By: #### S LACT2 ####[facility] LABORATORYCLIA [id number] [address] [place] TOXICOLOGY SCREEN, ROUTINE U RINEon 02-19-2024 Amphetamines Confirm (U) [Mass/Vol] Negative Normal Negative [facility] Comment on above: Order Comment: Speci men Type: URINE SPECIMENOrdering Facility: [facility] Address: [address] [place] [address] Result Comment: Cuto ff threshold at 1000 ng/mL. Performed By: #### U TOX2 ####[facility] LABORATORYCLIA [id number] [address] BARBITURATES, URINE Positive Abnormal Negative [facility] Comment on above: Order Comment: Speci men Type: URINE SPECIMENOrdering Facility: [facility] Address: [address] [place] [address] Result Comment: Cuto ff threshold at 200 ng/mL. Performed By: #### U TOX2 ####[facility] LABORATORYCLIA [id number] [place] [address] [place] BENZODIAZEPINES, UR Positive Abnormal Negative [facility] Comment on above: Order Comment: Speci men Type: URINE SPECIMENOrdering Facility: [facility] Address: [address] [place] [address] Result Comment: Cuto ff threshold at 200 ng/mL. Performed By: #### U TOX2 ####[facility] LABORATORYCLIA [id number] [place] [address] [place] Cannabinoids Screen Ql (U) Negative Normal Negative [facility] Comment on above: Order Comment: Speci men Type: URINE SPECIMENOrdering Facility: [facility] Address: [address] [place] [address] Result Comment: Cuto ff threshold at 50 ng/mL. Performed By: #### U TOX2 ####[facility]ORATORYCLIA [id number] [address] [place] Cocaine Ql (U) Negative Normal Negative [facility] Comment on above: Order Comment: Speci men Type: URINE SPECIMENOrdering Facility: [facility] Address: [address] [place] [address] Result Comment: Cuto ff threshold at 300 ng/mL. Performed By: #### U TOX2 ####[facility] LABORATORYCLIA [id number] [address] [place] Ethanol (U) [Mass/Vol] <11 Normal <11 [facility] Comment on above: Order Comment: Speci men Type: URINE SPECIMENOrdering Facility: [facility] Address: [address] [place] [address] Performed By: #### U TOX2 ####[facility] LABORATORYCLIA [id number] [address] Opiates Screen Ql (U) Negative Normal Negative [facility] Comment on above: Order Comment: Speci men Type: URINE SPECIMENOrdering Facility: [facility] Address: [address] [place] [address] Result Comment: Cuto ff threshold at 300 ng/mL. Performed By: #### U TOX2 ####[facility] LABORATORYCLIA [id number] [address] oxyCODONE cutoff Screen (U) [Mass/Vol] Negative Normal Negative [facility] Comment on above: Order Comment: Speci men Type: URINE SPECIMENOrdering Facility: [facility] Address: [address] [place] [address] Result Comment: Cuto ff threshold at 100 ng/mL. Performed By: #### U TOX2 ####[facility] LABORATORYCLIA [id number] [address] Phencyclidine Ql (U) Negative Normal Negative [facility] Comment on above: Order Comment: Speci men Type: URINE SPECIMENOrdering Facility: [facility] Address: [address] [place] [address] Result Comment: Cuto ff threshold at 25 ng/mL. Performed By: #### U TOX2 ####[facility] LABORATORYCLIA [id number] [place] [id number] [place] Urinalysis complete panel (U )on 02-19-2024 Bacteria LM.HPF (Urine sed) [#/Area] Rare Abnormal None Seen [facility] Comment on above: Order Comment: Speci men Type: URINE SPECIMENOrdering Facility: [facility] Address: [address] [place] [address] Performed By: #### 2 4356-8 ####[facility] LABORATORYCLIA [id number] [address] [place] Bilirubin Ql (U) Negative Normal Negative [facility] Comment on above: Order Comment: Speci men Type: URINE SPECIMENOrdering Facility: [facility] Address: [address] [place] [address] Performed By: #### 2 4356-8 ####[facility] LABORATORYCLIA [id number] [address] [place] Clarity (Unsp spec) Clear Normal Clear [facility] Comment on above: Order Comment: Speci men Type: URINE SPECIMENOrdering Facility: [facility] Address: [address] [place] [address] Performed By: #### 2 4356-8 ####[facility] LABORATORYCLIA [id number] [address] STATES [facility] Color (U) Yellow Normal Yellow [facility] Comment on above: Order Comment: Speci men Type: URINE SPECIMENOrdering Facility: [facility] Address: [address] [place] [address] Performed By: #### 2 4356-8 ####[facility] LABORATORYCLIA [id number] [place] [id number] [place] Glucose Test strip (U) [Mass/Vol] Trace Normal Trace, Negative [facility] Comment on above: Order Comment: Speci men Type: URINE SPECIMENOrdering Facility: [facility] Address: [address] [place] [address] Performed By: #### 2 4356-8 ####[facility]ORATORYCLIA [id number] [place] [address] [place] Hemoglobin Ql (U) Negative Normal Negative, Trace [facility] Comment on above: Order Comment: Speci men Type: URINE SPECIMENOrdering Facility: [facility] Address: [address] [place] [address] Performed By: #### 2 4356-8 ####[facility] LABORATORYCLIA [id number] [place] [id number] [place] Ketones Ql (U) Negative Normal Negative, Trace [facility] Comment on above: Order Comment: Speci men Type: URINE SPECIMENOrdering Facility: [facility] Address: [address] [place] [address] Performed By: #### 2 4356-8 ####[facility] LABORATORYCLIA [id number] [place] [address] [place] Leukocyte esterase Test strip Ql (U) 25 Lauren/uL Normal Negative, 25 Lauren/uL [facility] Comment on above: Order Comment: Speci men Type: URINE SPECIMENOrdering Facility: [facility] Address: [address] [place] [address] Performed By: #### 2 4356-8 ####[facility] LABORATORYCLIA [id number] [place] [address] [place] Nitrite Ql (U) Negative Normal Negative [facility] Comment on above: Order Comment: Speci men Type: URINE SPECIMENOrdering Facility: [facility] Address: [address] [place] [address] Performed By: #### 2 4356-8 ####[facility] LABORATORYCLIA [id number] [place] [id number] [place] pH (U) 6.5 [pH] Normal 5.0-8.0 [facility] Comment on above: Order Comment: Speci men Type: URINE SPECIMENOrdering Facility: [facility] Address: [address] [place] [address] Performed By: #### 2 4356-8 ####[facility] LABORATORYCLIA [id number] [place] [id number] [place] Protein (U) [Mass/Vol] Negative Normal Trace, Negative [facility] Comment on above: Order Comment: Speci men Type: URINE SPECIMENOrdering Facility: [facility] Address: [address] [place] [address] Performed By: #### 2 4356-8 ####[facility] LABORATORYCLIA [id number] [place] [address] [place] RBC LM.HPF (Urine sed) [#/Area] 0-3 /HPF Normal 0-3 /HPF [facility] Comment on above: Order Comment: Speci men Type: URINE SPECIMENOrdering Facility: [facility] Address: [address] [place] [address] Performed By: #### 2 4356-8 ####[facility] LABORATORYCLIA [id number] [address] Specific gravity (U) [Rel density] 1.011 Normal 1.005-1.030 [facility] Comment on above: Order Comment: Speci men Type: URINE SPECIMENOrdering Facility: [facility] Address: [address] [place] [address] Performed By: #### 2 4356-8 ####[facility]ORATORYCLIA [id number] [address] Urobilinogen Ql (U) Normal Normal Normal [facility] Comment on above: Order Comment: Speci men Type: URINE SPECIMENOrdering Facility: [facility] Address: [address] [place] [address] Performed By: #### 2 4356-8 ####[facility] LABORATORYCLIA [id number] [address] [place] WBC LM.HPF (Urine sed) [#/Area] 0-5 /HPF Normal 0-5 /HPF [facility] Comment on above: Order Comment: Speci men Type: URINE SPECIMENOrdering Facility: [facility] Address: [address] [place] [address] Performed By: #### 2 4356-8 ####[facility] LABORATORYCLIA [id number] [address] [place] ALLIED HEALTHon 02-18-2024 ALLIED HEALTH Normal [facility] Basic metabolic 2000 panelon 02-18-2024 Anion gap [Moles/Vol] 14 mmol/L Normal 8-15 [facility] Comment on above: Order Comment: Speci men Type: BLOOD SPECIMENOrdering Facility: [facility] Address: [address] [place] [address] Performed By: #### 2 4321-2, ####[facility] LABORATORYCLIA [id number] [place] [id number] [place] Calcium [Mass/Vol] 8.5 mg/dL Normal 8.5-10.2 [facility] Comment on above: Order Comment: Speci men Type: BLOOD SPECIMENOrdering Facility: [facility] Address: [address] [place] [address] Performed By: #### 2 4321-2, ####[facility]ORATORYCLIA [id number] [place] [id number] [place] Chloride [Moles/Vol] 94 mmol/L Low 98-107 [facility] Comment on above: Order Comment: Speci men Type: BLOOD SPECIMENOrdering Facility: [facility] Address: [address] [place] [address] Performed By: #### 2 4321-2, ####[facility] LABORATORYCLIA [id number] [place] [id number] [place] CO2 [Moles/Vol] 23 mmol/L Normal 22-30 [facility] Comment on above: Order Comment: Speci men Type: BLOOD SPECIMENOrdering Facility: [facility] Address: [address] [place] [address] Performed By: #### 2 4321-2, ####[facility]ORATORYCLIA [id number] [place] [id number] [place] Creatinine [Mass/Vol] 1.05 mg/dL Normal 0.73-1.22 [facility] Comment on above: Order Comment: Speci men Type: BLOOD SPECIMENOrdering Facility: [facility] Address: [address] [place] [address] Performed By: #### 2 4321-2, 92029-8 ####[facility] LABORATORYCLIA [id number] [place] [id number] [place] Creatinine and Glomerular filtration rate.predicted panel (S/P/Bld) 84 mL/min/1.73m??? Normal >=60 [facility] Comment on above: Order Comment: Berna champion Type: BLOOD SPECIMENOrdering Facility: [facility] Address: [address] [place] [address] Result Comment: Puja mated Glomerular Filtration Rate (eGFR) is calculated using the 2020 CKD-EPI creatinine equation. This equation utilizes serum creatinine, sex, and age as parameters. The creatinine assay has traceable calibration to isotope dilution-mass spectrometry. Refer to KDIGO guidelines for clinical interpretation. In patients with unstable renal function, e.g. those with acute kidney injury, the eGFR may not accurately reflect actual GFR. Performed By: #### 2 4321-, 95127-0 ####[facility] LABORATORYCLIA [id number] [place] [id number] [place] Glucose [Mass/Vol] 208 mg/dL High 74-99 [facility] Comment on above: Order Comment: Benra champion Type: BLOOD SPECIMENOrdering Facility: [facility] Address: [address] [place] [address] Result Comment: The [place] [employer] (ADA) provides guidance for cutoff values for fasting glucose and random glucose. The ADA defines fasting as no caloric intake for at least 8 hours. Fasting plasma glucose results between 100 to 125 mg/dL indicate increased risk for diabetes (prediabetes).Fasting plasma glucose results greater than or equal to 126 mg/dL meet the criteria for diagnosis of diabetes. In the absence of unequivocal hyperglycemia, results should be confirmed by repeat testing. In a patient with classic symptoms of hyperglycemia or hyperglycemic crisis, random plasma glucose results greater than or equal to 200 mg/dL meet the criteria for diagnosis of diabetes.Reference: Standards of Medical Care in Diabetes 2016, [place] [employer]. Diabetes Care. 2016.39(Suppl 1). Performed By: #### 2 4321-2, ####[facility]ORATORYCLIA [id number] [place] [address] [place] Potassium [Moles/Vol] 3.0 mmol/L Low 3.7-5.1 [facility] Comment on above: Order Comment: Speci men Type: BLOOD SPECIMENOrdering Facility: [facility] Address: [address] [place] [address] Performed By: #### 2 4321-2, ####[facility] LABORATORYCLIA [id number] [place] [id number] [place] Sodium [Moles/Vol] 131 mmol/L Low 136-144 [facility] Comment on above: Order Comment: Speci men Type: BLOOD SPECIMENOrdering Facility: [facility] Address: [address] [place] [address] Performed By: #### 2 4321-2, ####[facility]ORATORYCLIA [id number] [place] [address] [place] Urea nitrogen [Mass/Vol] 4 mg/dL Low 9-24 [facility] Comment on above: Order Comment: Speci men Type: BLOOD SPECIMENOrdering Facility: [facility] Address: [address] [place] [address] Performed By: #### 2 4321-2, ####[facility]ORATORYCLIA [id number] [place] [address] [place] CASE MANAGEMon 02-18-2024 CASE MANAGEM Normal [facility] CBC W Auto Differential pane l (Bld)on 02-18-2024 Basophils (Bld) [#/Vol] 10*3/uL Normal <0.11 [facility] Comment on above: Order Comment: Speci men Type: BLOOD SPECIMENOrdering Facility: [facility] Address: [address] [place] [address] Performed By: #### 5 7021-8 ####[facility]ORATORYCLIA [id number] [place] [address] [place] Basophils/100 WBC (Bld) 0.5 % Normal [facility] Comment on above: Order Comment: Speci men Type: BLOOD SPECIMENOrdering Facility: [facility] Address: [address] [place] [address] Performed By: #### 5 7021-8 ####[facility] LABORATORYCLIA [id number] [address] [place] Differential cell count method Nom (Bld) Auto Normal [facility] Comment on above: Order Comment: Speci men Type: BLOOD SPECIMENOrdering Facility: [facility] Address: [address] [place] [address] Performed By: #### 5 7021-8 ####[facility] LABORATORYCLIA [id number] [place] [address] [place] Eosinophils (Bld) [#/Vol] 0.08 10*3/uL Normal <0.46 [facility] Comment on above: Order Comment: Speci men Type: BLOOD SPECIMENOrdering Facility: [facility] Address: [address] [place] [address] Performed By: #### 5 7021-8 ####[facility] LABORATORYCLIA [id number] [address] [place] Eosinophils/100 WBC (Bld) 1.9 % Normal [facility] Comment on above: Order Comment: Speci men Type: BLOOD SPECIMENOrdering Facility: [facility] Address: [address] [place] [address] Performed By: #### 5 7021-8 ####[facility] LABORATORYCLIA [id number] [address] [place] Erythrocyte distribution width (RBC) [Ratio] 18.2 % High 11.5-15.0 [facility] Comment on above: Order Comment: Speci men Type: BLOOD SPECIMENOrdering Facility: [facility] Address: [address] [place] [address] Performed By: #### 5 7021-8 ####[facility] LABORATORYCLIA [id number] [address] [place] Hematocrit (Bld) [Volume fraction] 36.6 % Low 39.0-51.0 [facility] Comment on above: Order Comment: Speci men Type: BLOOD SPECIMENOrdering Facility: [facility] Address: [address] [place] [address] Performed By: #### 5 7021-8 ####[facility] LABORATORYCLIA [id number] [place] [id number] [place] Hemoglobin (Bld) [Mass/Vol] 11.5 g/dL Low 13.0-17.0 [facility] Comment on above: Order Comment: Speci men Type: BLOOD SPECIMENOrdering Facility: [facility] Address: [address] [place] [address] Performed By: #### 5 7021-8 ####[facility] LABORATORYCLIA [id number] [place] [address] [place] Immature granulocytes (Bld) [#/Vol] 10*3/uL Normal <0.10 [facility] Comment on above: Order Comment: Speci men Type: BLOOD SPECIMENOrdering Facility: [facility] Address: [address] [place] [address] Performed By: #### 5 7021-8 ####[facility] LABORATORYCLIA [id number] [place] [address] [place] Immature granulocytes/100 WBC (Bld) 0.5 % Normal [facility] Comment on above: Order Comment: Speci men Type: BLOOD SPECIMENOrdering Facility: [facility] Address: [address] [place] [address] Performed By: #### 5 7021-8 ####[facility]ORATORYCLIA [id number] [place] [id number] [place] Lymphocytes (Bld) [#/Vol] 0.47 10*3/uL Low 1.00-4.00 [facility] Comment on above: Order Comment: Speci men Type: BLOOD SPECIMENOrdering Facility: [facility] Address: [address] [place] [address] Performed By: #### 5 7021-8 ####[facility] LABORATORYCLIA [id number] [place] [id number] [place] Lymphocytes/100 WBC (Bld) 11.4 % Normal [facility] Comment on above: Order Comment: Speci men Type: BLOOD SPECIMENOrdering Facility: [facility] Address: [address] [place] [address] Performed By: #### 5 7021-8 ####[facility] LABORATORYCLIA [id number] [address] [place] [facility] MCH (RBC) [Entitic mass] 24.3 pg Low 26.0-34.0 [facility] Comment on above: Order Comment: Speci men Type: BLOOD SPECIMENOrdering Facility: [facility] Address: [address] [place] [address] Performed By: #### 5 7021-8 ####[facility] LABORATORYCLIA [id number] [address] MCHC (RBC) [Mass/Vol] 31.4 g/dL Normal 30.5-36.0 [facility] Comment on above: Order Comment: Speci men Type: BLOOD SPECIMENOrdering Facility: [facility] Address: [address] [place] [address] Performed By: #### 5 7021-8 ####[facility] LABORATORYCLIA [id number] [address] [place] MCV (RBC) [Entitic vol] 77.4 fL Low 80.0-100.0 [facility] Comment on above: Order Comment: Speci men Type: BLOOD SPECIMENOrdering Facility: [facility] Address: [address] [place] [address] Performed By: #### 5 7021-8 ####[facility]ORATORYCLIA [id number] [address] Monocytes (Bld) [#/Vol] 0.24 10*3/uL Normal <0.87 [facility] Comment on above: Order Comment: Speci men Type: BLOOD SPECIMENOrdering Facility: [facility] Address: [address] [place] [address] Performed By: #### 5 7021-8 ####[facility] LABORATORYCLIA [id number] [place] [address] [place] Monocytes/100 WBC (Bld) 5.8 % Normal [facility] Comment on above: Order Comment: Speci men Type: BLOOD SPECIMENOrdering Facility: [facility] Address: [address] [place] [address] Performed By: #### 5 7021-8 ####[facility] LABORATORYCLIA [id number] [place] [id number] [place] Neutrophils (Bld) [#/Vol] 3.30 10*3/uL Normal 1.45-7.50 [facility] Comment on above: Order Comment: Speci men Type: BLOOD SPECIMENOrdering Facility: [facility] Address: [address] [place] [address] Performed By: #### 5 7021-8 ####[facility]ORATORYCLIA [id number] [place] [address] [place] Neutrophils/100 WBC (Bld) 79.9 % Normal [facility] Comment on above: Order Comment: Speci men Type: BLOOD SPECIMENOrdering Facility: [facility] Address: [address] [place] [address] Performed By: #### 5 7021-8 ####[facility] LABORATORYCLIA [id number] [place] [address] [place] Nucleated RBC (Bld) [#/Vol] 10*3/uL Normal <0.01 [facility] Comment on above: Order Comment: Speci men Type: BLOOD SPECIMENOrdering Facility: [facility] Address: [address] [place] [address] Performed By: #### 5 7021-8 ####[facility] LABORATORYCLIA [id number] [place] [id number] [place] Nucleated RBC/100 WBC (Bld) [Ratio] 0.0 /100 WBC Normal [facility] Comment on above: Order Comment: Speci men Type: BLOOD SPECIMENOrdering Facility: [facility] Address: [address] [place] [address] Performed By: #### 5 7021-8 ####[facility] LABORATORYCLIA [id number] [place] [id number] [place] Platelet mean volume (Bld) [Entitic vol] 8.5 fL Low 9.0-12.7 [facility] Comment on above: Order Comment: Speci men Type: BLOOD SPECIMENOrdering Facility: [facility] Address: [address] [place] [address] Performed By: #### 5 7021-8 ####[facility] LABORATORYCLIA [id number] [place] [id number] [place] Platelets (Bld) [#/Vol] 61 10*3/uL Low 150-400 [facility] Comment on above: Order Comment: Speci men Type: BLOOD SPECIMENOrdering Facility: [facility] Address: [address] [place] [address] Performed By: #### 5 7021-8 ####[facility] LABORATORYCLIA [id number] [place] [id number] [place] RBC (Bld) [#/Vol] 4.73 10*6/uL Normal 4.20-6.00 [facility] Comment on above: Order Comment: Speci men Type: BLOOD SPECIMENOrdering Facility: [facility] Address: [address] [place] [address] Performed By: #### 5 7021-8 ####[facility] LABORATORYCLIA [id number] [place] [id number] [place] WBC (Bld) [#/Vol] 4.13 10*3/uL Normal 3.70-11.00 [facility] Comment on above: Order Comment: Speci men Type: BLOOD SPECIMENOrdering Facility: [facility] Address: [address] [place] [address] Performed By: #### 5 7021-8 ####[facility]ORATORYCLIA [id number] [place] [id number] [place] CNDSon 02-18-2024 CNDS Normal [facility] ED Triage Noteon 02-18-2024 ED Triage Note Normal [facility] Magnesium SerPl-mCncon 02-17 Magnesium [Mass/Vol] 1.8 mg/dL Normal 1.7-2.3 [facility] Comment on above: Order Comment: Speci men Type: BLOOD SPECIMENOrdering Facility: [facility] Address: [address] [place] [address] Performed By: #### 2 4321-2, 34807-4 ####[facility] LABORATORYCLIA [id number] [place] [address] [place] SEPSIS LACTATE W/ REFLEX (IN ITIAL)on 02-18-2024 Lactate [Moles/Vol] 3.0 mmol/L High 0.0-2.0 [facility] Comment on above: Order Comment: Speci men Type: BLOOD SPECIMENOrdering Facility: [facility] Address: [address] [place] [address] Performed By: #### S LACTR ####[facility]ORATORYCLIA [id number] [place] [address] [place] US DVT LOWER LTon 02-18-2024 US DVT LOWER LT Normal [facility] Basic metabolic 2000 panelon 02-17-2024 Anion gap [Moles/Vol] 11 mmol/L Normal 8-15 [facility] Comment on above: Order Comment: Speci men Type: BLOOD SPECIMENOrdering Facility: [facility] Address: [address] [place] [address] Performed By: #### 2 4321-2 ####[facility]ORATORYCLIA [id number] [place] [address] [place] Calcium [Mass/Vol] 8.3 mg/dL Low 8.5-10.2 [facility] Comment on above: Order Comment: Speci men Type: BLOOD SPECIMENOrdering Facility: [facility] Address: [address] [place] [address] Performed By: #### 2 4321-2 ####[facility]ORATORYCLIA [id number] [place] [address] [place] Chloride [Moles/Vol] 102 mmol/L Normal 98-107 [facility] Comment on above: Order Comment: Speci men Type: BLOOD SPECIMENOrdering Facility: [facility] Address: [address] [place] [address] Performed By: #### 2 4321-2 ####[facility]ORATORYCLIA [id number] [place] [id number] [place] CO2 [Moles/Vol] 26 mmol/L Normal 22-30 [facility] Comment on above: Order Comment: Speci men Type: BLOOD SPECIMENOrdering Facility: [facility] Address: [address] [place] [address] Performed By: #### 2 4321-2 ####[facility]ORATORYCLIA [id number] [place] [id number] [place] Creatinine [Mass/Vol] 0.98 mg/dL Normal 0.73-1.22 [facility] Comment on above: Order Comment: Speci men Type: BLOOD SPECIMENOrdering Facility: [facility] Address: [address] [place] [address] Performed By: #### 2 4321-2 ####[facility] LABORATORYCLIA [id number] [address] [place] Creatinine and Glomerular filtration rate.predicted panel (S/P/Bld) 91 mL/min/1.73m??? Normal >=60 [facility] Comment on above: Order Comment: Speci men Type: BLOOD SPECIMENOrdering Facility: [facility] Address: [address] [place] [address] Result Comment: Puja mated Glomerular Filtration Rate (eGFR) is calculated using the 2020 CKD-EPI creatinine equation. This equation utilizes serum creatinine, sex, and age as parameters. The creatinine assay has traceable calibration to isotope dilution-mass spectrometry. Refer to KDIGO guidelines for clinical interpretation. In patients with unstable renal function, e.g. those with acute kidney injury, the eGFR may not accurately reflect actual GFR. Performed By: #### 2 4321-2 ####[facility] LABORATORYCLIA [id number] [place] [id number] [place] Glucose [Mass/Vol] 100 mg/dL High 74-99 [facility] Comment on above: Order Comment: Speci men Type: BLOOD SPECIMENOrdering Facility: [facility] Address: [address] [place] [address] Result Comment: The [place] [employer] (ADA) provides guidance for cutoff values for fasting glucose and random glucose. The ADA defines fasting as no caloric intake for at least 8 hours. Fasting plasma glucose results between 100 to 125 mg/dL indicate increased risk for diabetes (prediabetes).Fasting plasma glucose results greater than or equal to 126 mg/dL meet the criteria for diagnosis of diabetes. In the absence of unequivocal hyperglycemia, results should be confirmed by repeat testing. In a patient with classic symptoms of hyperglycemia or hyperglycemic crisis, random plasma glucose results greater than or equal to 200 mg/dL meet the criteria for diagnosis of diabetes.Reference: Standards of Medical Care in Diabetes 2016, [place] [employer]. Diabetes Care. 2016.39(Suppl 1). Performed By: #### 2 4321-2 ####[facility] LABORATORYCLIA [id number] [place] [address] [place] Potassium [Moles/Vol] 3.8 mmol/L Normal 3.7-5.1 [facility] Comment on above: Order Comment: Speci men Type: BLOOD SPECIMENOrdering Facility: [facility] Address: [address] [place] [address] Performed By: #### 2 4321-2 ####[facility] LABORATORYCLIA [id number] [place] [id number] [place] Sodium [Moles/Vol] 139 mmol/L Normal 136-144 [facility] Comment on above: Order Comment: Speci men Type: BLOOD SPECIMENOrdering Facility: [facility] Address: [address] [place] [address] Performed By: #### 2 4321-2 ####[facility] LABORATORYCLIA [id number] [place] [id number] [place] Urea nitrogen [Mass/Vol] 4 mg/dL Low 9-24 [facility] Comment on above: Order Comment: Speci men Type: BLOOD SPECIMENOrdering Facility: [facility] Address: [address] [place] [address] Performed By: #### 2 4321-2 ####[facility] LABORATORYCLIA [id number] [place] [id number] [place] CASE MGT INIT ASSESon 2023 CASE MGT INIT ASSES Normal [facility] CBC panel Auto (Bld)on 02-16 Erythrocyte distribution width (RBC) [Ratio] 18.6 % High 11.5-15.0 [facility] Comment on above: Order Comment: Speci men Type: BLOOD SPECIMENOrdering Facility: [facility] Address: [address] [place] [address] Performed By: #### 5 8410-2 ####[facility] LABORATORYCLIA [id number] [address] Hematocrit (Bld) [Volume fraction] 34.4 % Low 39.0-51.0 [facility] Comment on above: Order Comment: Speci men Type: BLOOD SPECIMENOrdering Facility: [facility] Address: [address] [place] [address] Performed By: #### 5 8410-2 ####[facility] LABORATORYCLIA [id number] [address] Hemoglobin (Bld) [Mass/Vol] 11.0 g/dL Low 13.0-17.0 [facility] Comment on above: Order Comment: Speci men Type: BLOOD SPECIMENOrdering Facility: [facility] Address: [address] [place] [address] Performed By: #### 5 8410-2 ####[facility] LABORATORYCLIA [id number] [address] MCH (RBC) [Entitic mass] 24.6 pg Low 26.0-34.0 [facility] Comment on above: Order Comment: Speci men Type: BLOOD SPECIMENOrdering Facility: [facility] Address: [address] [place] [address] Performed By: #### 5 8410-2 ####[facility] LABORATORYCLIA [id number] [address] MCHC (RBC) [Mass/Vol] 32.0 g/dL Normal 30.5-36.0 [facility] Comment on above: Order Comment: Speci men Type: BLOOD SPECIMENOrdering Facility: [facility] Address: [address] [place] [address] Performed By: #### 5 8410-2 ####[facility] LABORATORYCLIA [id number] [address] MCV (RBC) [Entitic vol] 76.8 fL Low 80.0-100.0 [facility] Comment on above: Order Comment: Speci men Type: BLOOD SPECIMENOrdering Facility: [facility] Address: [address] [place] [address] Performed By: #### 5 8410-2 ####[facility] LABORATORYCLIA [id number] [address] [place] Nucleated RBC (Bld) [#/Vol] 10*3/uL Normal <0.01 [facility] Comment on above: Order Comment: Speci men Type: BLOOD SPECIMENOrdering Facility: [facility] Address: [address] [place] [address] Performed By: #### 5 8410-2 ####[facility] LABORATORYCLIA [id number] [place] [address] [place] Platelet mean volume (Bld) [Entitic vol] 8.3 fL Low 9.0-12.7 [facility] Comment on above: Order Comment: Speci men Type: BLOOD SPECIMENOrdering Facility: [facility] Address: [address] [place] [address] Performed By: #### 5 8410-2 ####[facility] LABORATORYCLIA [id number] [place] [address] [place] Platelets (Bld) [#/Vol] 70 10*3/uL Low 150-400 [facility] Comment on above: Order Comment: Speci men Type: BLOOD SPECIMENOrdering Facility: [facility] Address: [address] [place] [address] Performed By: #### 5 8410-2 ####[facility] LABORATORYCLIA [id number] [place] [address] [place] RBC (Bld) [#/Vol] 4.48 10*6/uL Normal 4.20-6.00 [facility] Comment on above: Order Comment: Speci men Type: BLOOD SPECIMENOrdering Facility: [facility] Address: [address] [place] [address] Performed By: #### 5 8410-2 ####[facility] LABORATORYCLIA [id number] [place] [address] [place] WBC (Bld) [#/Vol] 2.04 10*3/uL Low 3.70-11.00 [facility] Comment on above: Order Comment: Speci men Type: BLOOD SPECIMENOrdering Facility: [facility] Address: [address] [place] [address] Performed By: #### 5 8410-2 ####[facility] LABORATORYCLIA [id number] [address] [place] CONSULTon 02-17-2024 CONSULT Normal [facility] CRP SerPl-mCncon 02-17-2024 CRP [Mass/Vol] mg/L Normal <0.9 [facility] Comment on above: Order Comment: Speci men Type: BLOOD SPECIMENOrdering Facility: [facility] Address: [address] [place] [address] Performed By: #### 1 988-5 ####[facility] LABORATORYCLIA [id number] [place] [address] [place] HISTORY PHYSICALon HISTORY PHYSICAL Normal [facility] NURSING PROGon 02-17-2024 NURSING PROG Normal [facility] TOXICOLOGY SCREEN, ROUTINE U RINEon 02-17-2024 Amphetamines Confirm (U) [Mass/Vol] Negative Normal Negative [facility] Comment on above: Order Comment: Speci men Type: URINE SPECIMENOrdering Facility: [facility] Address: [address] [place] [address] Result Comment: Cuto ff threshold at 1000 ng/mL. Performed By: #### U TOX2 ####[facility] LABORATORYCLIA [id number] [place] [address] [place] BARBITURATES, URINE Positive Abnormal Negative [facility] Comment on above: Order Comment: Speci men Type: URINE SPECIMENOrdering Facility: [facility] Address: [address] [place] [address] Result Comment: Cuto ff threshold at 200 ng/mL. Performed By: #### U TOX2 ####[facility]ORATORYCLIA [id number] [place] [address] [place] BENZODIAZEPINES, UR Negative Normal Negative [facility] Comment on above: Order Comment: Speci men Type: URINE SPECIMENOrdering Facility: [facility] Address: [address] [place] [address] Result Comment: Cuto ff threshold at 200 ng/mL. Performed By: #### U TOX2 ####[facility] LABORATORYCLIA [id number] [place] [address] [place] Cannabinoids Screen Ql (U) Negative Normal Negative [facility] Comment on above: Order Comment: Speci men Type: URINE SPECIMENOrdering Facility: [facility] Address: [address] [place] [address] Result Comment: Cuto ff threshold at 50 ng/mL. Performed By: #### U TOX2 ####[facility] LABORATORYCLIA [id number] [place] [address] [place] Cocaine Ql (U) Negative Normal Negative [facility] Comment on above: Order Comment: Speci men Type: URINE SPECIMENOrdering Facility: [facility] Address: [address] [place] [address] Result Comment: Cuto ff threshold at 300 ng/mL. Performed By: #### U TOX2 ####[facility] LABORATORYCLIA [id number] [place] [address] [place] Ethanol (U) [Mass/Vol] 51 mg/dL High <11 [facility] Comment on above: Order Comment: Speci men Type: URINE SPECIMENOrdering Facility: [facility] Address: [address] [place] [address] Performed By: #### U TOX2 ####[facility] LABORATORYCLIA [id number] [place] [address] [place] Opiates Screen Ql (U) Negative Normal Negative [facility] Comment on above: Order Comment: Speci men Type: URINE SPECIMENOrdering Facility: [facility] Address: [address] [place] [address] Result Comment: Cuto ff threshold at 300 ng/mL. Performed By: #### U TOX2 ####[facility] LABORATORYCLIA [id number] [place] [address] [place] oxyCODONE cutoff Screen (U) [Mass/Vol] Negative Normal Negative [facility] Comment on above: Order Comment: Speci men Type: URINE SPECIMENOrdering Facility: [facility] Address: [address] [place] [address] Result Comment: Cuto ff threshold at 100 ng/mL. Performed By: #### U TOX2 ####[facility] LABORATORYCLIA [id number] [address] [place] Phencyclidine Ql (U) Negative Normal Negative [facility] Comment on above: Order Comment: Speci men Type: URINE SPECIMENOrdering Facility: [facility] Address: [address] [place] [address] Result Comment: Cuto ff threshold at 25 ng/mL. Performed By: #### U TOX2 ####[facility] LABORATORYCLIA [id number] [place] [address] [place] US DVT LOWER LTon 02-17-2024 US DVT LOWER LT Normal [facility] CBC W Auto Differential pane l (Bld)on 02-16-2024 Basophils (Bld) [#/Vol] 0.05 10*3/uL Normal <0.11 [facility] Comment on above: Order Comment: Speci men Type: BLOOD SPECIMENOrdering Facility: [facility] Address: [address] [place] [address] Performed By: #### 5 7021-8 ####[facility] LABORATORYCLIA [id number] [place] [address] [place] Basophils/100 WBC (Bld) 1.0 % Normal [facility] Comment on above: Order Comment: Speci men Type: BLOOD SPECIMENOrdering Facility: [facility] Address: [address] [place] [address] Performed By: #### 5 7021-8 ####[facility] LABORATORYCLIA [id number] [place] [id number] [place] [facility] [place] Differential cell count method Nom (Bld) Auto Normal [facility] Comment on above: Order Comment: Speci men Type: BLOOD SPECIMENOrdering Facility: [facility] Address: [address] [place] [address] Performed By: #### 5 7021-8 ####[facility] LABORATORYCLIA [id number] [place] [address] [place] Eosinophils (Bld) [#/Vol] 0.07 10*3/uL Normal <0.46 [facility] Comment on above: Order Comment: Speci men Type: BLOOD SPECIMENOrdering Facility: [facility] Address: [address] [place] [address] Performed By: #### 5 7021-8 ####[facility] LABORATORYCLIA [id number] [address] [place] Eosinophils/100 WBC (Bld) 1.4 % Normal [facility] Comment on above: Order Comment: Speci men Type: BLOOD SPECIMENOrdering Facility: [facility] Address: [address] [place] [address] Performed By: #### 5 7021-8 ####[facility] LABORATORYCLIA [id number] [address] [place] Erythrocyte distribution width (RBC) [Ratio] 19.5 % High 11.5-15.0 [facility] Comment on above: Order Comment: Speci men Type: BLOOD SPECIMENOrdering Facility: [facility] Address: [address] [place] [address] Performed By: #### 5 7021-8 ####[facility] LABORATORYCLIA [id number] [place] [id number] [facility] [place] Hematocrit (Bld) [Volume fraction] 40.0 % Normal 39.0-51.0 [facility] Comment on above: Order Comment: Speci men Type: BLOOD SPECIMENOrdering Facility: [facility] Address: [address] [place] [address] Performed By: #### 5 7021-8 ####[facility] LABORATORYCLIA [id number] [place] [id number] [place] Hemoglobin (Bld) [Mass/Vol] 12.8 g/dL Low 13.0-17.0 [facility] Comment on above: Order Comment: Speci men Type: BLOOD SPECIMENOrdering Facility: [facility] Address: [address] [place] [address] Performed By: #### 5 7021-8 ####[facility] LABORATORYCLIA [id number] [place] [id number] [place] Immature granulocytes (Bld) [#/Vol] 10*3/uL Normal <0.10 [facility] Comment on above: Order Comment: Speci men Type: BLOOD SPECIMENOrdering Facility: [facility] Address: [address] [place] [address] Performed By: #### 5 7021-8 ####[facility] LABORATORYCLIA [id number] [place] [address] [place] Immature granulocytes/100 WBC (Bld) 0.2 % Normal [facility] Comment on above: Order Comment: Speci men Type: BLOOD SPECIMENOrdering Facility: [facility] Address: [address] [place] [address] Performed By: #### 5 7021-8 ####[facility] LABORATORYCLIA [id number] [place] [id number] [place] Lymphocytes (Bld) [#/Vol] 1.35 10*3/uL Normal 1.00-4.00 [facility] Comment on above: Order Comment: Speci men Type: BLOOD SPECIMENOrdering Facility: [facility] Address: [address] [place] [address] Performed By: #### 5 7021-8 ####[facility] LABORATORYCLIA [id number] [place] [id number] [place] Lymphocytes/100 WBC (Bld) 27.7 % Normal [facility] Comment on above: Order Comment: Speci men Type: BLOOD SPECIMENOrdering Facility: [facility] Address: [address] [place] [address] Performed By: #### 5 7021-8 ####[facility] LABORATORYCLIA [id number] [address] [place] [facility] MCH (RBC) [Entitic mass] 24.5 pg Low 26.0-34.0 [facility] Comment on above: Order Comment: Speci men Type: BLOOD SPECIMENOrdering Facility: [facility] Address: [address] [place] [address] Performed By: #### 5 7021-8 ####[facility] LABORATORYCLIA [id number] [address] [place] [facility] MCHC (RBC) [Mass/Vol] 32.0 g/dL Normal 30.5-36.0 [facility] Comment on above: Order Comment: Speci men Type: BLOOD SPECIMENOrdering Facility: [facility] Address: [address] [place] [address] Performed By: #### 5 7021-8 ####[facility] LABORATORYCLIA [id number] [address] [place] MCV (RBC) [Entitic vol] 76.6 fL Low 80.0-100.0 [facility] Comment on above: Order Comment: Speci men Type: BLOOD SPECIMENOrdering Facility: [facility] Address: [address] [place] [address] Performed By: #### 5 7021-8 ####[facility] LABORATORYCLIA [id number] [address] Monocytes (Bld) [#/Vol] 0.25 10*3/uL Normal <0.87 [facility] Comment on above: Order Comment: Speci men Type: BLOOD SPECIMENOrdering Facility: [facility] Address: [address] [place] [address] Performed By: #### 5 7021-8 ####[facility] LABORATORYCLIA [id number] [address] [place] Monocytes/100 WBC (Bld) 5.1 % Normal [facility] Comment on above: Order Comment: Speci men Type: BLOOD SPECIMENOrdering Facility: [facility] Address: [address] [place] [address] Performed By: #### 5 7021-8 ####[facility] LABORATORYCLIA [id number] [place] [address] [place] Neutrophils (Bld) [#/Vol] 3.14 10*3/uL Normal 1.45-7.50 [facility] Comment on above: Order Comment: Speci men Type: BLOOD SPECIMENOrdering Facility: [facility] Address: [address] [place] [address] Performed By: #### 5 7021-8 ####[facility] LABORATORYCLIA [id number] [address] [place] Neutrophils/100 WBC (Bld) 64.6 % Normal [facility] Comment on above: Order Comment: Speci men Type: BLOOD SPECIMENOrdering Facility: [facility] Address: [address] [place] [address] Performed By: #### 5 7021-8 ####[facility] LABORATORYCLIA [id number] [place] [id number] [place] Nucleated RBC (Bld) [#/Vol] 10*3/uL Normal <0.01 [facility] Comment on above: Order Comment: Speci men Type: BLOOD SPECIMENOrdering Facility: [facility] Address: [address] [place] [address] Performed By: #### 5 7021-8 ####[facility] LABORATORYCLIA [id number] [place] [id number] [place] Nucleated RBC/100 WBC (Bld) [Ratio] 0.0 /100 WBC Normal [facility] Comment on above: Order Comment: Speci men Type: BLOOD SPECIMENOrdering Facility: [facility] Address: [address] [place] [address] Performed By: #### 5 7021-8 ####[facility] LABORATORYCLIA [id number] [place] [id number] [place] Platelet mean volume (Bld) [Entitic vol] 8.4 fL Low 9.0-12.7 [facility] Comment on above: Order Comment: Speci men Type: BLOOD SPECIMENOrdering Facility: [facility] Address: [address] [place] [address] Performed By: #### 5 7021-8 ####[facility] LABORATORYCLIA [id number] [place] [id number] [place] Platelets (Bld) [#/Vol] 132 10*3/uL Low 150-400 [facility] Comment on above: Order Comment: Speci men Type: BLOOD SPECIMENOrdering Facility: [facility] Address: [address] [place] [address] Performed By: #### 5 7021-8 ####[facility] LABORATORYCLIA [id number] [place] [address] [place] RBC (Bld) [#/Vol] 5.22 10*6/uL Normal 4.20-6.00 [facility] Comment on above: Order Comment: Speci men Type: BLOOD SPECIMENOrdering Facility: [facility] Address: [address] [place] [address] Performed By: #### 5 7021-8 ####[facility] LABORATORYCLIA [id number] [place] [id number] [place] WBC (Bld) [#/Vol] 4.87 10*3/uL Normal 3.70-11.00 [facility] Comment on above: Order Comment: Speci men Type: BLOOD SPECIMENOrdering Facility: [facility] Address: [address] [place] [address] Performed By: #### 5 7021-8 ####[facility] LABORATORYCLIA [id number] [place] [id number] [place] [facility] [place] Comprehensive metabolic 2000 panelon 02-16-2024 Albumin [Mass/Vol] 4.5 g/dL Normal 3.9-4.9 [facility] Comment on above: Order Comment: Speci men Type: BLOOD SPECIMENOrdering Facility: [facility] Address: [address] [place] [address] Performed By: #### 2 4323-8 ####[facility] LABORATORYCLIA [id number] [place] [id number] [place] ALP [Catalytic activity/Vol] 116 U/L High 38-113 [facility] Comment on above: Order Comment: Speci men Type: BLOOD SPECIMENOrdering Facility: [facility] Address: [address] [place] [address] Performed By: #### 2 4323-8 ####[facility] LABORATORYCLIA [id number] [place] [id number] [place] ALT [Catalytic activity/Vol] 35 U/L Normal 10-54 [facility] Comment on above: Order Comment: Speci men Type: BLOOD SPECIMENOrdering Facility: [facility] Address: [address] [place] [address] Performed By: #### 2 4323-8 ####[facility] LABORATORYCLIA [id number] [place] [address] [place] Anion gap [Moles/Vol] 15 mmol/L Normal 8-15 [facility] Comment on above: Order Comment: Speci men Type: BLOOD SPECIMENOrdering Facility: [facility] Address: [address] [place] [address] Performed By: #### 2 4323-8 ####[facility] LABORATORYCLIA [id number] [place] [address] [place] AST [Catalytic activity/Vol] 82 U/L High 14-40 [facility] Comment on above: Order Comment: Speci men Type: BLOOD SPECIMENOrdering Facility: [facility] Address: [address] [place] [address] Performed By: #### 2 4323-8 ####[facility] LABORATORYCLIA [id number] [place] [id number] [place] Bilirubin [Mass/Vol] 0.9 mg/dL Normal 0.2-1.3 [facility] Comment on above: Order Comment: Speci men Type: BLOOD SPECIMENOrdering Facility: [facility] Address: [address] [place] [address] Performed By: #### 2 4323-8 ####[facility] LABORATORYCLIA [id number] [place] [id number] [place] Calcium [Mass/Vol] 8.9 mg/dL Normal 8.5-10.2 [facility] Comment on above: Order Comment: Speci men Type: BLOOD SPECIMENOrdering Facility: [facility] Address: [address] [place] [address] Performed By: #### 2 4323-8 ####[facility] LABORATORYCLIA [id number] [place] [id number] [place] Chloride [Moles/Vol] 98 mmol/L Normal 98-107 [facility] Comment on above: Order Comment: Speci men Type: BLOOD SPECIMENOrdering Facility: [facility] Address: [address] [place] [address] Performed By: #### 2 4323-8 ####[facility] LABORATORYCLIA [id number] [place] [id number] [place] CO2 [Moles/Vol] 26 mmol/L Normal 22-30 [facility] Comment on above: Order Comment: Speci men Type: BLOOD SPECIMENOrdering Facility: [facility] Address: [address] [place] [address] Performed By: #### 2 4323-8 ####[facility] LABORATORYCLIA [id number] [place] [id number] [place] Creatinine [Mass/Vol] 0.99 mg/dL Normal 0.73-1.22 [facility] Comment on above: Order Comment: Speci men Type: BLOOD SPECIMENOrdering Facility: [facility] Address: [address] [place] [address] Performed By: #### 2 4323-8 ####[facility] LABORATORYCLIA [id number] [place] [id number] [place] Creatinine and Glomerular filtration rate.predicted panel (S/P/Bld) 90 mL/min/1.73m??? Normal >=60 [facility] Comment on above: Order Comment: Speci men Type: BLOOD SPECIMENOrdering Facility: [facility] Address: [address] [place] [address] Result Comment: Puja mated Glomerular Filtration Rate (eGFR) is calculated using the 2020 CKD-EPI creatinine equation. This equation utilizes serum creatinine, sex, and age as parameters. The creatinine assay has traceable calibration to isotope dilution-mass spectrometry. Refer to KDIGO guidelines for clinical interpretation. In patients with unstable renal function, e.g. those with acute kidney injury, the eGFR may not accurately reflect actual GFR. Performed By: #### 2 4323-8 ####[facility] LABORATORYCLIA [id number] [place] [address] [place] Glucose [Mass/Vol] 81 mg/dL Normal 74-99 [facility] Comment on above: Order Comment: Berna men Type: BLOOD SPECIMENOrdering Facility: [facility] Address: [address] [place] [address] Result Comment: The [place] [employer] (ADA) provides guidance for cutoff values for fasting glucose and random glucose. The ADA defines fasting as no caloric intake for at least 8 hours. Fasting plasma glucose results between 100 to 125 mg/dL indicate increased risk for diabetes (prediabetes).Fasting plasma glucose results greater than or equal to 126 mg/dL meet the criteria for diagnosis of diabetes. In the absence of unequivocal hyperglycemia, results should be confirmed by repeat testing. In a patient with classic symptoms of hyperglycemia or hyperglycemic crisis, random plasma glucose results greater than or equal to 200 mg/dL meet the criteria for diagnosis of diabetes.Reference: Standards of Medical Care in Diabetes 2016, [place] [employer]. Diabetes Care. 2016.39(Suppl 1). Performed By: #### 2 4323-8 ####[facility] LABORATORYCLIA [id number] [place] [id number] [place] Potassium [Moles/Vol] 4.6 mmol/L Normal 3.7-5.1 [facility] Comment on above: Order Comment: Berna men Type: BLOOD SPECIMENOrdering Facility: [facility] Address: [address] [place] [id number] Performed By: #### 2 4323-8 ####[facility] LABORATORYCLIA [id number] [place] [id number] [place] Protein [Mass/Vol] 8.2 g/dL High 6.3-8.0 [facility] Comment on above: Order Comment: Speci men Type: BLOOD SPECIMENOrdering Facility: [facility] Address: [address] [place] [address] Performed By: #### 2 4323-8 ####[facility] LABORATORYCLIA [id number] [place] [id number] [place] Sodium [Moles/Vol] 139 mmol/L Normal 136-144 [facility] Comment on above: Order Comment: Speci men Type: BLOOD SPECIMENOrdering Facility: [facility] Address: [address] [place] [address] Performed By: #### 2 4323-8 ####[facility] LABORATORYCLIA [id number] [place] [id number] [place] Urea nitrogen [Mass/Vol] 4 mg/dL Low 9-24 [facility] Comment on above: Order Comment: Speci men Type: BLOOD SPECIMENOrdering Facility: [facility] Address: [address] [place] [address] Performed By: #### 2 4323-8 ####[facility] LABORATORYCLIA [id number] [place] [id number] [place] ED PROV NOTEon 02-16-2024 ED PROV NOTE Normal [facility] ED Triage Noteon 02-16-2024 ED Triage Note Normal [facility] ALLIED HEALTHon 02-09-2024 ALLIED HEALTH Normal [facility] ALLIED HEALTH Normal [facility] CBC W Auto Differential pane l (Bld)on 02-09-2024 Basophils (Bld) [#/Vol] 0.03 10*3/uL Normal <0.11 [facility] Comment on above: Order Comment: Speci men Type: BLOOD SPECIMENOrdering Facility: [facility] Address: [address] [place] [address] Performed By: #### 5 7021-8 ####[facility] LABORATORYCLIA [id number] [place] [id number] [place] Basophils/100 WBC (Bld) 0.7 % Normal [facility] Comment on above: Order Comment: Speci men Type: BLOOD SPECIMENOrdering Facility: [facility] Address: [address] [place] [address] Performed By: #### 5 7021-8 ####[facility] LABORATORYCLIA [id number] [address] [place] Differential cell count method Nom (Bld) Auto Normal [facility] Comment on above: Order Comment: Speci men Type: BLOOD SPECIMENOrdering Facility: [facility] Address: [address] [place] [address] Performed By: #### 5 7021-8 ####[facility] LABORATORYCLIA [id number] [place] [address] [place] Eosinophils (Bld) [#/Vol] 0.14 10*3/uL Normal <0.46 [facility] Comment on above: Order Comment: Speci men Type: BLOOD SPECIMENOrdering Facility: [facility] Address: [address] [place] [address] Performed By: #### 5 7021-8 ####[facility]ORATORYCLIA [id number] [address] [place] Eosinophils/100 WBC (Bld) 3.4 % Normal [facility] Comment on above: Order Comment: Speci men Type: BLOOD SPECIMENOrdering Facility: [facility] Address: [address] [place] [address] Performed By: #### 5 7021-8 ####[facility]ORATORYCLIA [id number] [address] [place] Erythrocyte distribution width (RBC) [Ratio] 19.0 % High 11.5-15.0 [facility] Comment on above: Order Comment: Speci men Type: BLOOD SPECIMENOrdering Facility: [facility] Address: [address] [place] [address] Performed By: #### 5 7021-8 ####[facility] LABORATORYCLIA [id number] [address] [place] Hematocrit (Bld) [Volume fraction] 34.6 % Low 39.0-51.0 [facility] Comment on above: Order Comment: Speci men Type: BLOOD SPECIMENOrdering Facility: [facility] Address: [address] [place] [address] Performed By: #### 5 7021-8 ####[facility] LABORATORYCLIA [id number] [place] [id number] [place] Hemoglobin (Bld) [Mass/Vol] 11.1 g/dL Low 13.0-17.0 [facility] Comment on above: Order Comment: Speci men Type: BLOOD SPECIMENOrdering Facility: [facility] Address: [address] [place] [address] Performed By: #### 5 7021-8 ####[facility] LABORATORYCLIA [id number] [place] [id number] [place] Immature granulocytes (Bld) [#/Vol] 0.07 10*3/uL Normal <0.10 [facility] Comment on above: Order Comment: Speci men Type: BLOOD SPECIMENOrdering Facility: [facility] Address: [address] [place] [address] Performed By: #### 5 7021-8 ####[facility] LABORATORYCLIA [id number] [place] [address] [place] Immature granulocytes/100 WBC (Bld) 1.7 % Normal [facility] Comment on above: Order Comment: Speci men Type: BLOOD SPECIMENOrdering Facility: [facility] Address: [address] [place] [address] Performed By: #### 5 7021-8 ####[facility] LABORATORYCLIA [id number] [place] [id number] [place] Lymphocytes (Bld) [#/Vol] 0.70 10*3/uL Low 1.00-4.00 [facility] Comment on above: Order Comment: Speci men Type: BLOOD SPECIMENOrdering Facility: [facility] Address: [address] [place] [address] Performed By: #### 5 7021-8 ####[facility] LABORATORYCLIA [id number] [place] [id number] [place] Lymphocytes/100 WBC (Bld) 17.2 % Normal [facility] Comment on above: Order Comment: Speci men Type: BLOOD SPECIMENOrdering Facility: [facility] Address: [address] [place] [address] Performed By: #### 5 7021-8 ####[facility] LABORATORYCLIA [id number] [place] [address] [place] MCH (RBC) [Entitic mass] 24.9 pg Low 26.0-34.0 [facility] Comment on above: Order Comment: Speci men Type: BLOOD SPECIMENOrdering Facility: [facility] Address: [address] [place] [address] Performed By: #### 5 7021-8 ####[facility] LABORATORYCLIA [id number] [place] [address] [place] MCHC (RBC) [Mass/Vol] 32.1 g/dL Normal 30.5-36.0 [facility] Comment on above: Order Comment: Speci men Type: BLOOD SPECIMENOrdering Facility: [facility] Address: [address] [place] [address] Performed By: #### 5 7021-8 ####[facility] LABORATORYCLIA [id number] [place] [address] [place] MCV (RBC) [Entitic vol] 77.6 fL Low 80.0-100.0 [facility] Comment on above: Order Comment: Speci men Type: BLOOD SPECIMENOrdering Facility: [facility] Address: [address] [place] [address] Performed By: #### 5 7021-8 ####[facility] LABORATORYCLIA [id number] [place] [address] [place] Monocytes (Bld) [#/Vol] 0.37 10*3/uL Normal <0.87 [facility] Comment on above: Order Comment: Speci men Type: BLOOD SPECIMENOrdering Facility: [facility] Address: [address] [place] [address] Performed By: #### 5 7021-8 ####[facility] LABORATORYCLIA [id number] [place] [address] [place] Monocytes/100 WBC (Bld) 9.1 % Normal [facility] Comment on above: Order Comment: Speci men Type: BLOOD SPECIMENOrdering Facility: [facility] Address: [address] [place] [address] Performed By: #### 5 7021-8 ####[facility] LABORATORYCLIA [id number] [place] [id number] [place] Neutrophils (Bld) [#/Vol] 2.77 10*3/uL Normal 1.45-7.50 [facility] Comment on above: Order Comment: Speci men Type: BLOOD SPECIMENOrdering Facility: [facility] Address: [address] [place] [address] Performed By: #### 5 7021-8 ####[facility] LABORATORYCLIA [id number] [place] [address] [place] Neutrophils/100 WBC (Bld) 67.9 % Normal [facility] Comment on above: Order Comment: Speci men Type: BLOOD SPECIMENOrdering Facility: [facility] Address: [address] [place] [address] Performed By: #### 5 7021-8 ####[facility] LABORATORYCLIA [id number] [place] [address] [place] Nucleated RBC (Bld) [#/Vol] 10*3/uL Normal <0.01 [facility] Comment on above: Order Comment: Speci men Type: BLOOD SPECIMENOrdering Facility: [facility] Address: [address] [place] [address] Performed By: #### 5 7021-8 ####[facility]ORATORYCLIA [id number] [place] [id number] [place] Nucleated RBC/100 WBC (Bld) [Ratio] 0.0 /100 WBC Normal [facility] Comment on above: Order Comment: Speci men Type: BLOOD SPECIMENOrdering Facility: [facility] Address: [address] [place] [address] Performed By: #### 5 7021-8 ####[facility]ORATORYCLIA [id number] [place] [address] [place] Platelet mean volume (Bld) [Entitic vol] 9.4 fL Normal 9.0-12.7 [facility] Comment on above: Order Comment: Speci men Type: BLOOD SPECIMENOrdering Facility: [facility] Address: [address] [place] [address] Performed By: #### 5 7021-8 ####[facility]ORATORYCLIA [id number] [place] [address] [place] Platelets (Bld) [#/Vol] 70 10*3/uL Low 150-400 [facility] Comment on above: Order Comment: Speci men Type: BLOOD SPECIMENOrdering Facility: [facility] Address: [address] [place] [address] Result Comment: No c lot detected. Performed By: #### 5 7021-8 ####[facility]ORATORYCLIA [id number] [place] [address] [place] RBC (Bld) [#/Vol] 4.46 10*6/uL Normal 4.20-6.00 [facility] Comment on above: Order Comment: Speci men Type: BLOOD SPECIMENOrdering Facility: [facility] Address: [address] [place] [address] Performed By: #### 5 7021-8 ####[facility]ORATORYCLIA [id number] [place] [address] [place] WBC (Bld) [#/Vol] 4.08 10*3/uL Normal 3.70-11.00 [facility] Comment on above: Order Comment: Speci men Type: BLOOD SPECIMENOrdering Facility: [facility] Address: [address] [place] [address] Performed By: #### 5 7021-8 ####[facility]ORATORYCLIA [id number] [place] [id number] [place] CT BRAIN WO IVCONon 02-09-20 CT BRAIN WO IVCON Normal [facility] CT CERVICAL SPINE WO IVCONon 07-07-2024 CT CERVICAL SPINE WO IVCON Normal [facility] CT FACIAL BONE/RAIN WO IVCON on 02-09-2024 CT FACIAL BONE/RAIN WO IVCON Normal [facility] Comprehensive metabolic 2000 panelon 02-09-2024 Albumin [Mass/Vol] 3.7 g/dL Low 3.9-4.9 [facility] Comment on above: Order Comment: Speci men Type: BLOOD SPECIMENOrdering Facility: [facility] Address: [address] [place] [address] Performed By: #### 2 4323-8, , [id number] ####[facility]ORATORYCLIA [id number] [place] [address] [place] ALP [Catalytic activity/Vol] 101 U/L Normal 38-113 [facility] Comment on above: Order Comment: Speci men Type: BLOOD SPECIMENOrdering Facility: [facility] Address: [address] [place] [address] Performed By: #### 2 4323-8, , [id number] ####[facility]ORATORYCLIA [id number] [place] [id number] [place] ALT [Catalytic activity/Vol] 33 U/L Normal 10-54 [facility] Comment on above: Order Comment: Speci men Type: BLOOD SPECIMENOrdering Facility: [facility] Address: [address] [place] [address] Performed By: #### 2 4323-8, , [id number] ####[facility]ORATORYCLIA [id number] [place] [id number] [place] Anion gap [Moles/Vol] 14 mmol/L Normal 8-15 [facility] Comment on above: Order Comment: Speci men Type: BLOOD SPECIMENOrdering Facility: [facility] Address: [address] [place] [address] Performed By: #### 2 4323-8, 17685-5, [id number] ####[facility]ORATORYCLIA [id number] [place] [address] [place] AST [Catalytic activity/Vol] 66 U/L High 14-40 [facility] Comment on above: Order Comment: Speci men Type: BLOOD SPECIMENOrdering Facility: [facility] Address: [address] [place] [address] Performed By: #### 2 4323-8, , [id number] ####[facility]ORATORYCLIA [id number] [place] [address] [place] Bilirubin [Mass/Vol] 0.4 mg/dL Normal 0.2-1.3 [facility] Comment on above: Order Comment: Speci men Type: BLOOD SPECIMENOrdering Facility: [facility] Address: [address] [place], [place] [address] Performed By: #### 2 4323-8, , [id number] ####[facility]ORATORYCLIA [id number] [place] [id number] [place] Calcium [Mass/Vol] 8.5 mg/dL Normal 8.5-10.2 [facility] Comment on above: Order Comment: Speci men Type: BLOOD SPECIMENOrdering Facility: [facility] Address: [address] [place], [place] [address] Performed By: #### 2 4323-8, , [id number] ####[facility]ORATORYCLIA [id number] [place] [id number] [place] Chloride [Moles/Vol] 99 mmol/L Normal 98-107 [facility] Comment on above: Order Comment: Speci men Type: BLOOD SPECIMENOrdering Facility: [facility] Address: [address] [place] [address] Performed By: #### 2 4323-8, , [id number] ####[facility] LABORATORYCLIA [id number] [place] [address] [place] CO2 [Moles/Vol] 23 mmol/L Normal 22-30 [facility] Comment on above: Order Comment: Speci men Type: BLOOD SPECIMENOrdering Facility: [facility] Address: [address] [place] [address] Performed By: #### 2 4323-8, , [id number] ####[facility]ORATORYCLIA [id number] [place] [address] [place] Creatinine [Mass/Vol] 0.84 mg/dL Normal 0.73-1.22 [facility] Comment on above: Order Comment: Berna champion Type: BLOOD SPECIMENOrdering Facility: [facility] Address: [address] [place] [address] Performed By: #### 2 4323-8, 89057-4, [id number] ####[facility]ORATORYCLIA [id number] [place] [id number] [facility] Creatinine and Glomerular filtration rate.predicted panel (S/P/Bld) 103 mL/min/1.73m??? Normal >=60 [facility] Comment on above: Order Comment: Berna champion Type: BLOOD SPECIMENOrdering Facility: [facility] Address: [address] [place] [address] Result Comment: Puja mated Glomerular Filtration Rate (eGFR) is calculated using the 2020 CKD-EPI creatinine equation. This equation utilizes serum creatinine, sex, and age as parameters. The creatinine assay has traceable calibration to isotope dilution-mass spectrometry. Refer to KDIGO guidelines for clinical interpretation. In patients with unstable renal function, e.g. those with acute kidney injury, the eGFR may not accurately reflect actual GFR. Performed By: #### 2 4323-8, 18113-1, [id number] ####[facility]ORATORYCLIA [id number] [place] [id number] [place] Glucose [Mass/Vol] 91 mg/dL Normal 74-99 [facility] Comment on above: Order Comment: Berna champion Type: BLOOD SPECIMENOrdering Facility: [facility] Address: [address] [place] [address] Result Comment: The [place] [employer] (ADA) provides guidance for cutoff values for fasting glucose and random glucose. The ADA defines fasting as no caloric intake for at least 8 hours. Fasting plasma glucose results between 100 to 125 mg/dL indicate increased risk for diabetes (prediabetes).Fasting plasma glucose results greater than or equal to 126 mg/dL meet the criteria for diagnosis of diabetes. In the absence of unequivocal hyperglycemia, results should be confirmed by repeat testing. In a patient with classic symptoms of hyperglycemia or hyperglycemic crisis, random plasma glucose results greater than or equal to 200 mg/dL meet the criteria for diagnosis of diabetes.Reference: Standards of Medical Care in Diabetes 2016, [place] [employer]. Diabetes Care. 2016.39(Suppl 1). Performed By: #### 2 4323-8, , [id number] ####[facility]ORATORYCLIA [id number] [place] [address] [place] Potassium [Moles/Vol] 3.8 mmol/L Normal 3.7-5.1 [facility] Comment on above: Order Comment: Speci men Type: BLOOD SPECIMENOrdering Facility: [facility] Address: [address] [place] [address] Performed By: #### 2 4328, , [id number] ####[facility] LABORATORYCLIA [id number] [place] [id number] [place] Protein [Mass/Vol] 7.2 g/dL Normal 6.3-8.0 [facility] Comment on above: Order Comment: Speci men Type: BLOOD SPECIMENOrdering Facility: [facility] Address: [address] [place] [address] Performed By: #### 2 8, , [id number] ####[facility] LABORATORYCLIA [id number] [place] [id number] [place] Sodium [Moles/Vol] 136 mmol/L Normal 136-144 [facility] Comment on above: Order Comment: Speci men Type: BLOOD SPECIMENOrdering Facility: [facility] Address: [address] [place] [address] Performed By: #### 2 4323-8, , [id number] ####[facility] LABORATORYCLIA [id number] [place] [address] [place] Urea nitrogen [Mass/Vol] 3 mg/dL Low 9-24 [facility] Comment on above: Order Comment: Speci men Type: BLOOD SPECIMENOrdering Facility: [facility] Address: [address] [place] [address] Performed By: #### 2 4323-8, 28223-2, [id number] ####[facility]ORATORYCLIA [id number] [place] [id number] [place] [facility] ED NOTEon 02-09-2024 ED NOTE Normal [facility] ED NOTE HNO ID: [id number] Author: WANDA CARRION RN Service: ? Author Type: Registered Nurse Type: ED Notes Filed: 02/09/2024 06:55 Note Text: Pt able to ambulate with no difficulty and answering questions appropriately Normal [facility] ED NOTE HNO ID: [id number] Author: WANDA CARRION RN Service: ? Author Type: Registered Nurse Type: ED Notes Filed: 02/09/2024 03:22 Note Text: Report received from GALE Littlejohn Normal [facility] ED PROV NOTEon 02-09-2024 ED PROV NOTE [facility] Ethanol SerPl-mCncon 024 Ethanol [Mass/Vol] 160 mg/dL High <11 [facility] Comment on above: Order Comment: Speci men Type: BLOOD SPECIMENOrdering Facility: [facility] Address: [address] [place] [address] Result Comment: Valu es > 80 mg/dL may indicate intoxication Performed By: #### 5 643-2 ####[facility]ORATORYCLIA [id number] [place] [id number] [place] HIGH SENSITIVITY TROPONIN T (INITIAL)on 02-09-2024 Troponin T.cardiac High sensitivity method [Mass/Vol] <6 Normal <12 [facility] Comment on above: Order Comment: Speci men Type: BLOOD SPECIMENOrdering Facility: [facility] Address: [address] [place] [address] Performed By: #### 2 4323-8, 50029-4, [id number] ####[facility]ORATORYCLIA [id number] [place] [id number] [place] HIGH SENSITIVITY TROPONIN T (SECOND)on 02-09-2024 Troponin T.cardiac High sensitivity method [Mass/Vol] <6 Normal <12 [facility] Comment on above: Order Comment: Speci men Type: BLOOD SPECIMENOrdering Facility: [facility] Address: [address] [place] [address] Performed By: #### L [id number] ####[facility] LABORATORYCLIA [id number] [place] [id number] [place] Magnesium SerPl-mCncon 02-08 Magnesium [Mass/Vol] 1.7 mg/dL Normal 1.7-2.3 [facility] Comment on above: Order Comment: Berna champion Type: BLOOD SPECIMENOrdering Facility: [facility] Address: [address] [place] [address] Performed By: #### 2 4323-8, 91622-5, [id number] ####[facility] LABORATORYCLIA [id number] [place] [address] [place] PT panel Coag (PPP)on 2023 INR Coag (PPP) [Relative time] 1.1 {INR} Normal 0.9-1.3 [facility] Comment on above: Order Comment: Specyonatan champion Type: BLOOD SPECIMENOrdering Facility: [facility] Address: [address] [place] [address] Result Comment: Kecia min K Antagonist (VKA) Therapeutic Range: INR 2 to 3 (Target INR of 2.5)Note: For patients treated with VKA drugs, such as warfarin, the [place] [employer] 2012 Guideline recommends a therapeutic INR range of 2 to 3 (target INR of 2.5). This recommendation includes high-risk patients with antiphospholipid syndrome with previous arterial or venous thromboembolism, current-generation mechanical or bioprosthetic aortic heart valve replacement.Note: Patients with mechanical aortic valve replacement and additional risk factors for thromboembolic events (atrial fibrillation, previous thromboembolism, LV dysfunction, hypercoagulable conditions) or an older generation mechanical AVR (i.e., ball in-Cage) or any mechanical MVR should have a INR therapeutic range of 2.5 to 3.5 (target INR of 3).Pinky GH, et al. Chest 2012, 141:7S-47SMonica JARAMILLO, et al. [facility] 2017, 70: 252-289 Performed By: #### 3 4528-0, 71604-6 ####[facility] LABORATORYCLIA [id number] [place] [address] [place] PT Coag (PPP) [Time] 12.2 s Normal 9.7-13.0 [facility] Comment on above: Order Comment: Speci men Type: BLOOD SPECIMENOrdering Facility: [facility] Address: [address] [place] [address] Performed By: #### 3 4528-0, 33625-1 ####[facility] LABORATORYCLIA [id number] [address] [place] TOXICOLOGY SCREEN, ROUTINE U RINEon 02-09-2024 Amphetamines Confirm (U) [Mass/Vol] Negative Normal Negative [facility] Comment on above: Order Comment: Speci men Type: URINE SPECIMENOrdering Facility: [facility] Address: [address] [place] [address] Result Comment: Cuto ff threshold at 1000 ng/mL. Performed By: #### U TOX2 ####[facility] LABORATORYCLIA [id number] [address] [place] BARBITURATES, URINE Positive Abnormal Negative [facility] Comment on above: Order Comment: Speci men Type: URINE SPECIMENOrdering Facility: [facility] Address: [address] [place] [address] Result Comment: Cuto ff threshold at 200 ng/mL. Performed By: #### U TOX2 ####[facility] LABORATORYCLIA [id number] [place] [address] [place] BENZODIAZEPINES, UR Negative Normal Negative [facility] Comment on above: Order Comment: Speci men Type: URINE SPECIMENOrdering Facility: [facility] Address: [address] [place] [address] Result Comment: Cuto ff threshold at 200 ng/mL. Performed By: #### U TOX2 ####[facility]ORATORYCLIA [id number] [address] [place] Cannabinoids Screen Ql (U) Negative Normal Negative [facility] Comment on above: Order Comment: Speci men Type: URINE SPECIMENOrdering Facility: [facility] Address: [address] [place] [address] Result Comment: Cuto ff threshold at 50 ng/mL. Performed By: #### U TOX2 ####[facility] LABORATORYCLIA [id number] [place] [address] [place] Cocaine Ql (U) Negative Normal Negative [facility] Comment on above: Order Comment: Speci men Type: URINE SPECIMENOrdering Facility: [facility] Address: [address] [place] [address] Result Comment: Cuto ff threshold at 300 ng/mL. Performed By: #### U TOX2 ####[facility] LABORATORYCLIA [id number] [place] [address] [place] Ethanol (U) [Mass/Vol] 267 mg/dL High <11 [facility] Comment on above: Order Comment: Speci men Type: URINE SPECIMENOrdering Facility: [facility] Address: [address] [place] [address] Performed By: #### U TOX2 ####[facility] LABORATORYCLIA [id number] [place] [address] [place] Opiates Screen Ql (U) Negative Normal Negative [facility] Comment on above: Order Comment: Speci men Type: URINE SPECIMENOrdering Facility: [facility] Address: [address] [place] [address] Result Comment: Cuto ff threshold at 300 ng/mL. Performed By: #### U TOX2 ####[facility] LABORATORYCLIA [id number] [place] [address] [place] oxyCODONE cutoff Screen (U) [Mass/Vol] Negative Normal Negative [facility] Comment on above: Order Comment: Speci men Type: URINE SPECIMENOrdering Facility: [facility] Address: [address] [place] [address] Result Comment: Cuto ff threshold at 100 ng/mL. Performed By: #### U TOX2 ####[facility] LABORATORYCLIA [id number] [place] [address] [place] Phencyclidine Ql (U) Negative Normal Negative [facility] Comment on above: Order Comment: Speci men Type: URINE SPECIMENOrdering Facility: [facility] Address: [address] [place] [address] Result Comment: Cuto ff threshold at 25 ng/mL. Performed By: #### U TOX2 ####[facility] LABORATORYCLIA [id number] [address] [place] TYPE + SCREENon 02-09-2024 ABO O Normal [facility] Comment on above: Order Comment: Speci men Type: BLOOD SPECIMENOrdering Facility: [facility] Address: [address] [place] [address] Performed By: #### T SCR ####[facility] BLOOD BANKCLIA [id number] [address] [place] HISTORICAL AB SCR STATUS Negative [facility] Comment on above: Order Comment: Speci men Type: BLOOD SPECIMENOrdering Facility: [facility] Address: [address] [place] [address] Performed By: #### T SCR ####[facility] BLOOD BANKCLIA [id number] [place] [address] [place] Rh Nom (Bld) Positive [facility] Comment on above: Order Comment: Speci men Type: BLOOD SPECIMENOrdering Facility: [facility] Address: [address] [place] [address] Performed By: #### T SCR ####[facility]LOOD BANKCLIA [id number] [place] [address] [place] TYPE AND SCREEN EXPIRATION 02/12/2024 23:59 Normal [facility] Comment on above: Order Comment: Speci men Type: BLOOD SPECIMENOrdering Facility: [facility] Address: [address] [place] [address] Performed By: #### T SCR ####[facility] BLOOD BANKCLIA [id number] [place] [id number] [place] XR CHEST 1V FRONTAL PORTon 0 02-09-2024 XR CHEST 1V FRONTAL PORT Normal [facility] aPTT PPPon 02-09-2024 aPTT Coag (PPP) [Time] 28.9 s Normal 23.0-32.4 [facility] Comment on above: Order Comment: Speci men Type: BLOOD SPECIMENOrdering Facility: [facility] Address: [address] [place] [address] Performed By: #### 3 4528-0, 30791-7 ####[facility] LABORATORYCLIA [id number] [place] [id number] [place] Basic metabolic 2000 panelon 02-07-2024 Anion gap [Moles/Vol] 11 mmol/L Normal 8-15 [facility] Comment on above: Order Comment: Speci men Type: BLOOD SPECIMENOrdering Facility: [facility] Address: [address] [place] [address] Performed By: #### 2 4321-2 ####[facility] LABORATORYCLIA [id number] [place] [address] [place] Calcium [Mass/Vol] 7.6 mg/dL Low 8.5-10.2 [facility] Comment on above: Order Comment: Speci men Type: BLOOD SPECIMENOrdering Facility: [facility] Address: [address] [place] [address] Performed By: #### 2 4321-2 ####[facility] LABORATORYCLIA [id number] [place] [id number] [place] Chloride [Moles/Vol] 101 mmol/L Normal 98-107 [facility] Comment on above: Order Comment: Speci men Type: BLOOD SPECIMENOrdering Facility: [facility] Address: [address] [place] [address] Performed By: #### 2 4321-2 ####[facility] LABORATORYCLIA [id number] [place] [id number] [place] CO2 [Moles/Vol] 22 mmol/L Normal 22-30 [facility] Comment on above: Order Comment: Speci men Type: BLOOD SPECIMENOrdering Facility: [facility] Address: [address] [place] [address] Performed By: #### 2 4321-2 ####[facility] LABORATORYCLIA [id number] [place] [id number] [place] Creatinine [Mass/Vol] 0.96 mg/dL Normal 0.73-1.22 [facility] Comment on above: Order Comment: Berna akira Type: BLOOD SPECIMENOrdering Facility: [facility] Address: [address] [place] [address] Performed By: #### 2 4321-2 ####[facility] LABORATORYCLIA [id number] [place] [id number] [place] Creatinine and Glomerular filtration rate.predicted panel (S/P/Bld) 93 mL/min/1.73m??? Normal >=60 [facility] Comment on above: Order Comment: Berna akira Type: BLOOD SPECIMENOrdering Facility: [facility] Address: [address] [place] [address] Result Comment: Puja mated Glomerular Filtration Rate (eGFR) is calculated using the 2020 CKD-EPI creatinine equation. This equation utilizes serum creatinine, sex, and age as parameters. The creatinine assay has traceable calibration to isotope dilution-mass spectrometry. Refer to KDIGO guidelines for clinical interpretation. In patients with unstable renal function, e.g. those with acute kidney injury, the eGFR may not accurately reflect actual GFR. Performed By: #### 2 4321-2 ####[facility] LABORATORYCLIA [id number] [place] [id number] [place] Glucose [Mass/Vol] 104 mg/dL High 74-99 [facility] Comment on above: Order Comment: Berna akira Type: BLOOD SPECIMENOrdering Facility: [facility] Address: [address] [place] [address] Result Comment: The [place] [employer] (ADA) provides guidance for cutoff values for fasting glucose and random glucose. The ADA defines fasting as no caloric intake for at least 8 hours. Fasting plasma glucose results between 100 to 125 mg/dL indicate increased risk for diabetes (prediabetes).Fasting plasma glucose results greater than or equal to 126 mg/dL meet the criteria for diagnosis of diabetes. In the absence of unequivocal hyperglycemia, results should be confirmed by repeat testing. In a patient with classic symptoms of hyperglycemia or hyperglycemic crisis, random plasma glucose results greater than or equal to 200 mg/dL meet the criteria for diagnosis of diabetes.Reference: Standards of Medical Care in Diabetes 2016, [place] [employer]. Diabetes Care. 2016.39(Suppl 1). Performed By: #### 2 4321-2 ####[facility] LABORATORYCLIA [id number] [place] [id number] [place] Potassium [Moles/Vol] 3.8 mmol/L Normal 3.7-5.1 [facility] Comment on above: Order Comment: Speci men Type: BLOOD SPECIMENOrdering Facility: [facility] Address: [address] [place] [address] Performed By: #### 2 4321-2 ####[facility] LABORATORYCLIA [id number] [place] [id number] [place] Sodium [Moles/Vol] 134 mmol/L Low 136-144 [facility] Comment on above: Order Comment: Speci men Type: BLOOD SPECIMENOrdering Facility: [facility] Address: [address] [place] [address] Performed By: #### 2 4321-2 ####[facility] LABORATORYCLIA [id number] [place] [id number] [place] Urea nitrogen [Mass/Vol] 3 mg/dL Low 9-24 [facility] Comment on above: Order Comment: Speci men Type: BLOOD SPECIMENOrdering Facility: [facility] Address: [address] [place] [address] Performed By: #### 2 4321-2 ####[facility] LABORATORYCLIA [id number] [place] [id number] [place] Anion gap [Moles/Vol] 13 mmol/L Normal 8-15 [facility] Comment on above: Order Comment: Speci men Type: BLOOD SPECIMENOrdering Facility: [facility] Address: [address] [place] [address] Performed By: #### 2 4321-2 ####[facility] LABORATORYCLIA [id number] [place] [id number] [place] Calcium [Mass/Vol] 7.3 mg/dL Low 8.5-10.2 [facility] Comment on above: Order Comment: Speci men Type: BLOOD SPECIMENOrdering Facility: [facility] Address: [address] [place] [address] Performed By: #### 2 4321-2 ####[facility] LABORATORYCLIA [id number] [place] [id number] [place] Chloride [Moles/Vol] 99 mmol/L Normal 98-107 [facility] Comment on above: Order Comment: Speci men Type: BLOOD SPECIMENOrdering Facility: [facility] Address: [address] [place] [address] Performed By: #### 2 4321-2 ####[facility] LABORATORYCLIA [id number] [place] [id number] [place] CO2 [Moles/Vol] 20 mmol/L Low 22-30 [facility] Comment on above: Order Comment: Speci men Type: BLOOD SPECIMENOrdering Facility: [facility] Address: [address] [place] [address] Performed By: #### 2 4321-2 ####[facility] LABORATORYCLIA [id number] [place] [id number] [place] Creatinine [Mass/Vol] 0.95 mg/dL Normal 0.73-1.22 [facility] Comment on above: Order Comment: Speci men Type: BLOOD SPECIMENOrdering Facility: [facility] Address: [address] [place] [address] Performed By: #### 2 4321-2 ####[facility] LABORATORYCLIA [id number] [place] [id number] [facility] Creatinine and Glomerular filtration rate.predicted panel (S/P/Bld) 95 mL/min/1.73m??? Normal >=60 [facility] Comment on above: Order Comment: Speci men Type: BLOOD SPECIMENOrdering Facility: [facility] Address: [address] [place] [address] Result Comment: Puja mated Glomerular Filtration Rate (eGFR) is calculated using the 2020 CKD-EPI creatinine equation. This equation utilizes serum creatinine, sex, and age as parameters. The creatinine assay has traceable calibration to isotope dilution-mass spectrometry. Refer to KDIGO guidelines for clinical interpretation. In patients with unstable renal function, e.g. those with acute kidney injury, the eGFR may not accurately reflect actual GFR. Performed By: #### 2 4321-2 ####[facility] LABORATORYCLIA [id number] [place] [id number] [place] Glucose [Mass/Vol] 96 mg/dL Normal 74-99 [facility] Comment on above: Order Comment: Speci men Type: BLOOD SPECIMENOrdering Facility: [facility] Address: [address] [place] [address] Result Comment: The [place] Diabetes [employer] (ADA) provides guidance for cutoff values for fasting glucose and random glucose. The ADA defines fasting as no caloric intake for at least 8 hours. Fasting plasma glucose results between 100 to 125 mg/dL indicate increased risk for diabetes (prediabetes).Fasting plasma glucose results greater than or equal to 126 mg/dL meet the criteria for diagnosis of diabetes. In the absence of unequivocal hyperglycemia, results should be confirmed by repeat testing. In a patient with classic symptoms of hyperglycemia or hyperglycemic crisis, random plasma glucose results greater than or equal to 200 mg/dL meet the criteria for diagnosis of diabetes.Reference: Standards of Medical Care in Diabetes 2016, [place] [employer]. Diabetes Care. 2016.39(Suppl 1). Performed By: #### 2 4321-2 ####[facility] LABORATORYCLIA [id number] [place] [id number] [place] Potassium [Moles/Vol] 3.2 mmol/L Low 3.7-5.1 [facility] Comment on above: Order Comment: Berna champion Type: BLOOD SPECIMENOrdering Facility: [facility] Address: [address] [place] [address] Performed By: #### 2 4321-2 ####[facility] LABORATORYCLIA [id number] [place] [id number] [place] Sodium [Moles/Vol] 132 mmol/L Low 136-144 [facility] Comment on above: Order Comment: Speci men Type: BLOOD SPECIMENOrdering Facility: [facility] Address: [address] [place] [address] Performed By: #### 2 4321-2 ####[facility] LABORATORYCLIA [id number] [place] [address] [place] Urea nitrogen [Mass/Vol] 4 mg/dL Low 9-24 [facility] Comment on above: Order Comment: Speci men Type: BLOOD SPECIMENOrdering Facility: [facility] Address: [address] [place] [address] Performed By: #### 2 4321-2 ####[facility] LABORATORYCLIA [id number] [address] [place] CASE MGT INIT ASSESon 2023 CASE MGT INIT ASSES Normal [facility] CBC panel Auto (Bld)on 02-06 Erythrocyte distribution width (RBC) [Ratio] 18.8 % High 11.5-15.0 [facility] Comment on above: Order Comment: Speci men Type: BLOOD SPECIMENOrdering Facility: [facility] Address: [address] [place] [address] Performed By: #### 5 8410-2 ####[facility] LABORATORYCLIA [id number] [place] [address] [place] Hematocrit (Bld) [Volume fraction] 29.6 % Low 39.0-51.0 [facility] Comment on above: Order Comment: Speci men Type: BLOOD SPECIMENOrdering Facility: [facility] Address: [address] [place] [address] Performed By: #### 5 8410-2 ####[facility] LABORATORYCLIA [id number] [place] [address] [place] Hemoglobin (Bld) [Mass/Vol] 9.5 g/dL Low 13.0-17.0 [facility] Comment on above: Order Comment: Speci men Type: BLOOD SPECIMENOrdering Facility: [facility] Address: [address] [place] [address] Performed By: #### 5 8410-2 ####[facility] LABORATORYCLIA [id number] [place] [address] [place] MCH (RBC) [Entitic mass] 24.6 pg Low 26.0-34.0 [facility] Comment on above: Order Comment: Speci men Type: BLOOD SPECIMENOrdering Facility: [facility] Address: [address] [place] [address] Performed By: #### 5 8410-2 ####[facility] LABORATORYCLIA [id number] [address] STATES [facility] MCHC (RBC) [Mass/Vol] 32.1 g/dL Normal 30.5-36.0 [facility] Comment on above: Order Comment: Speci men Type: BLOOD SPECIMENOrdering Facility: [facility] Address: [address] [place] [address] Performed By: #### 5 8410-2 ####[facility] LABORATORYCLIA [id number] [address] [place] MCV (RBC) [Entitic vol] 76.7 fL Low 80.0-100.0 [facility] Comment on above: Order Comment: Speci men Type: BLOOD SPECIMENOrdering Facility: [facility] Address: [address] [place] [address] Performed By: #### 5 8410-2 ####[facility] LABORATORYCLIA [id number] [place] [address] [place] Nucleated RBC (Bld) [#/Vol] 10*3/uL Normal <0.01 [facility] Comment on above: Order Comment: Speci men Type: BLOOD SPECIMENOrdering Facility: [facility] Address: [address] [place] [address] Performed By: #### 5 8410-2 ####[facility] LABORATORYCLIA [id number] [place] [address] [place] Platelet mean volume (Bld) [Entitic vol] 9.1 fL Normal 9.0-12.7 [facility] Comment on above: Order Comment: Speci men Type: BLOOD SPECIMENOrdering Facility: [facility] Address: [address] [place] [address] Performed By: #### 5 8410-2 ####[facility] LABORATORYCLIA [id number] [place] [address] [place] Platelets (Bld) [#/Vol] 42 10*3/uL Low 150-400 [facility] Comment on above: Order Comment: Speci men Type: BLOOD SPECIMENOrdering Facility: [facility] Address: [address] [place] [address] Performed By: #### 5 8410-2 ####[facility] LABORATORYCLIA [id number] [place] [address] [place] RBC (Bld) [#/Vol] 3.86 10*6/uL Low 4.20-6.00 [facility] Comment on above: Order Comment: Speci men Type: BLOOD SPECIMENOrdering Facility: [facility] Address: [address] [place] [address] Performed By: #### 5 8410-2 ####[facility] LABORATORYCLIA [id number] [place] [id number] [place] WBC (Bld) [#/Vol] 2.86 10*3/uL Low 3.70-11.00 [facility] Comment on above: Order Comment: Speci men Type: BLOOD SPECIMENOrdering Facility: [facility] Address: [address] [place] [address] Performed By: #### 5 8410-2 ####[facility] LABORATORYCLIA [id number] [place] [id number] [place] CNDSon 02-07-2024 CNDS [facility] CONSULT PROGon 02-07-2024 CONSULT PROG [facility] Magnesium SerPl-mCncon 02-06 Magnesium [Mass/Vol] 1.7 mg/dL Normal 1.7-2.3 [facility] Comment on above: Order Comment: Speci men Type: BLOOD SPECIMENOrdering Facility: [facility] Address: [address] [place] [address] Performed By: #### 1 9123-9, 2777-1 ####[facility] LABORATORYCLIA [id number] [place] [id number] [place] NURSING PROGon 02-07-2024 NURSING PROG Normal [facility] NURSING PROG Normal [facility] NURSING PROG Normal [facility] Phosphate SerPl-mCncon 02-06 Phosphate [Mass/Vol] 2.3 mg/dL Low 2.7-4.8 [facility] Comment on above: Order Comment: Speci men Type: BLOOD SPECIMENOrdering Facility: [facility] Address: [address] [place] [address] Performed By: #### 1 9123-9, 2776- ####[facility] LABORATORYCLIA [id number] [place] [id number] [place] ALLIED HEALTHon 02-06-2024 ALLIED HEALTH Normal [facility] Basic metabolic 2000 panelon 02-06-2024 Anion gap [Moles/Vol] 10 mmol/L Normal 8-15 [facility] Comment on above: Order Comment: Speci men Type: BLOOD SPECIMENOrdering Facility: [facility] Address: [address] [place] [address] Performed By: #### 2 4321-2, 2776-08, ####[facility] LABORATORYCLIA [id number] [place] [id number] [place] Calcium [Mass/Vol] 8.1 mg/dL Low 8.5-10.2 [facility] Comment on above: Order Comment: Speci men Type: BLOOD SPECIMENOrdering Facility: [facility] Address: [address] [place] [address] Performed By: #### 2 4321-2, 2776-08, ####[facility] LABORATORYCLIA [id number] [place] [id number] [place] Chloride [Moles/Vol] 99 mmol/L Normal 98-107 [facility] Comment on above: Order Comment: Speci men Type: BLOOD SPECIMENOrdering Facility: [facility] Address: [address] [place] [address] Performed By: #### 2 4321-2, 2776-08, ####[facility] LABORATORYCLIA [id number] [place] [id number] [place] CO2 [Moles/Vol] 21 mmol/L Low 22-30 [facility] Comment on above: Order Comment: Speci men Type: BLOOD SPECIMENOrdering Facility: [facility] Address: [address] [place] [address] Performed By: #### 2 4321-2, 2777, ####[facility] LABORATORYCLIA [id number] [place] [id number] [place] Creatinine [Mass/Vol] 1.05 mg/dL Normal 0.73-1.22 [facility] Comment on above: Order Comment: Speci men Type: BLOOD SPECIMENOrdering Facility: [facility] Address: [address] [place] [address] Performed By: #### 2 4321-2, 2777-, ####[facility] LABORATORYCLIA [id number] [place] [id number] [place] [facility] Creatinine and Glomerular filtration rate.predicted panel (S/P/Bld) 84 mL/min/1.73m??? Normal >=60 [facility] Comment on above: Order Comment: Speci men Type: BLOOD SPECIMENOrdering Facility: [facility] Address: [address] [place] [address] Result Comment: Puja mated Glomerular Filtration Rate (eGFR) is calculated using the 2020 CKD-EPI creatinine equation. This equation utilizes serum creatinine, sex, and age as parameters. The creatinine assay has traceable calibration to isotope dilution-mass spectrometry. Refer to KDIGO guidelines for clinical interpretation. In patients with unstable renal function, e.g. those with acute kidney injury, the eGFR may not accurately reflect actual GFR. Performed By: #### 2 4321-2, 2777-, ####[facility] LABORATORYCLIA [id number] [place] [id number] [place] Glucose [Mass/Vol] 100 mg/dL High 74-99 [facility] Comment on above: Order Comment: Speci men Type: BLOOD SPECIMENOrdering Facility: [facility] Address: [address] [place] [address] Result Comment: The [place] [employer] (ADA) provides guidance for cutoff values for fasting glucose and random glucose. The ADA defines fasting as no caloric intake for at least 8 hours. Fasting plasma glucose results between 100 to 125 mg/dL indicate increased risk for diabetes (prediabetes).Fasting plasma glucose results greater than or equal to 126 mg/dL meet the criteria for diagnosis of diabetes. In the absence of unequivocal hyperglycemia, results should be confirmed by repeat testing. In a patient with classic symptoms of hyperglycemia or hyperglycemic crisis, random plasma glucose results greater than or equal to 200 mg/dL meet the criteria for diagnosis of diabetes.Reference: Standards of Medical Care in Diabetes 2016, [place] [employer]. Diabetes Care. 2016.39(Suppl 1). Performed By: #### 2 4321-2, 2776-08, ####[facility] LABORATORYCLIA [id number] [place] [id number] [place] Potassium [Moles/Vol] 3.2 mmol/L Low 3.7-5.1 [facility] Comment on above: Order Comment: Berna champion Type: BLOOD SPECIMENOrdering Facility: [facility] Address: [address] [place] [address] Performed By: #### 2 432-2, 2776-08, ####[facility] LABORATORYCLIA [id number] [place] [id number] [place] Sodium [Moles/Vol] 130 mmol/L Low 136-144 [facility] Comment on above: Order Comment: Berna champion Type: BLOOD SPECIMENOrdering Facility: [facility] Address: [address] [place] [address] Performed By: #### 2 432-2, 2776-08, ####[facility] LABORATORYCLIA [id number] [place] [id number] [place] Urea nitrogen [Mass/Vol] 7 mg/dL Low 9-24 [facility] Comment on above: Order Comment: Berna champion Type: BLOOD SPECIMENOrdering Facility: [facility] Address: [address] [place] [address] Performed By: #### 2 4321-2, 2776-08, ####[facility] LABORATORYCLIA [id number] [place] [id number] [place] CBC W Auto Differential pane l (Bld)on 02-06-2024 Basophils (Bld) [#/Vol] 10*3/uL Normal <0.11 [facility] Comment on above: Order Comment: Speci men Type: BLOOD SPECIMENOrdering Facility: [facility] Address: [address] [place] [address] Performed By: #### 5 7021-8 ####[facility] LABORATORYCLIA [id number] [place] [address] [place] Basophils/100 WBC (Bld) 0.3 % Normal [facility] Comment on above: Order Comment: Speci men Type: BLOOD SPECIMENOrdering Facility: [facility] Address: [address] [place] [address] Performed By: #### 5 7021-8 ####[facility] LABORATORYCLIA [id number] [place] [address] [place] Differential cell count method Nom (Bld) Auto Normal [facility] Comment on above: Order Comment: Speci men Type: BLOOD SPECIMENOrdering Facility: [facility] Address: [address] [place] [address] Performed By: #### 5 7021-8 ####[facility] LABORATORYCLIA [id number] [place] [address] [place] Eosinophils (Bld) [#/Vol] 0.03 10*3/uL Normal <0.46 [facility] Comment on above: Order Comment: Speci men Type: BLOOD SPECIMENOrdering Facility: [facility] Address: [address] [place] [address] Performed By: #### 5 7021-8 ####[facility] LABORATORYCLIA [id number] [place] [address] [place] Eosinophils/100 WBC (Bld) 0.8 % Normal [facility] Comment on above: Order Comment: Speci men Type: BLOOD SPECIMENOrdering Facility: [facility] Address: [address] [place] [address] Performed By: #### 5 7021-8 ####[facility] LABORATORYCLIA [id number] [address] [place] Erythrocyte distribution width (RBC) [Ratio] 18.2 % High 11.5-15.0 [facility] Comment on above: Order Comment: Speci men Type: BLOOD SPECIMENOrdering Facility: [facility] Address: [address] [place] [address] Performed By: #### 5 7021-8 ####[facility] LABORATORYCLIA [id number] [place] [address] [place] Hematocrit (Bld) [Volume fraction] 30.0 % Low 39.0-51.0 [facility] Comment on above: Order Comment: Speci men Type: BLOOD SPECIMENOrdering Facility: [facility] Address: [address] [place] [address] Performed By: #### 5 7021-8 ####[facility] LABORATORYCLIA [id number] [place] [address] [place] Hemoglobin (Bld) [Mass/Vol] 10.1 g/dL Low 13.0-17.0 [facility] Comment on above: Order Comment: Speci men Type: BLOOD SPECIMENOrdering Facility: [facility] Address: [address] [place] [address] Performed By: #### 5 7021-8 ####[facility] LABORATORYCLIA [id number] [address] [place] Immature granulocytes (Bld) [#/Vol] 10*3/uL Normal <0.10 [facility] Comment on above: Order Comment: Speci men Type: BLOOD SPECIMENOrdering Facility: [facility] Address: [address] [place] [address] Performed By: #### 5 7021-8 ####[facility] LABORATORYCLIA [id number] [address] [place] Immature granulocytes/100 WBC (Bld) 0.3 % Normal [facility] Comment on above: Order Comment: Speci men Type: BLOOD SPECIMENOrdering Facility: [facility] Address: [address] [place] [address] Performed By: #### 5 7021-8 ####[facility] LABORATORYCLIA [id number] [address] [place] Lymphocytes (Bld) [#/Vol] 0.48 10*3/uL Low 1.00-4.00 [facility] Comment on above: Order Comment: Speci men Type: BLOOD SPECIMENOrdering Facility: [facility] Address: [address] [place] [address] Performed By: #### 5 7021-8 ####[facility] LABORATORYCLIA [id number] [address] [place] [facility] Lymphocytes/100 WBC (Bld) 13.3 % Normal [facility] Comment on above: Order Comment: Speci men Type: BLOOD SPECIMENOrdering Facility: [facility] Address: [address] [place] [address] Performed By: #### 5 7021-8 ####[facility] LABORATORYCLIA [id number] [address] [place] MCH (RBC) [Entitic mass] 24.8 pg Low 26.0-34.0 [facility] Comment on above: Order Comment: Speci men Type: BLOOD SPECIMENOrdering Facility: [facility] Address: [address] [place] [address] Performed By: #### 5 7021-8 ####[facility] LABORATORYCLIA [id number] [address] [place] MCHC (RBC) [Mass/Vol] 33.7 g/dL Normal 30.5-36.0 [facility] Comment on above: Order Comment: Speci men Type: BLOOD SPECIMENOrdering Facility: [facility] Address: [address] [place] [address] Performed By: #### 5 7021-8 ####[facility] LABORATORYCLIA [id number] [address] [place] [facility] MCV (RBC) [Entitic vol] 73.7 fL Low 80.0-100.0 [facility] Comment on above: Order Comment: Speci men Type: BLOOD SPECIMENOrdering Facility: [facility] Address: [address] [place] [address] Performed By: #### 5 7021-8 ####[facility] LABORATORYCLIA [id number] [place] [id number] [place] Monocytes (Bld) [#/Vol] 0.47 10*3/uL Normal <0.87 [facility] Comment on above: Order Comment: Speci men Type: BLOOD SPECIMENOrdering Facility: [facility] Address: [address] [place] [address] Performed By: #### 5 7021-8 ####[facility] LABORATORYCLIA [id number] [place] [id number] [place] Monocytes/100 WBC (Bld) 13.0 % Normal [facility] Comment on above: Order Comment: Speci men Type: BLOOD SPECIMENOrdering Facility: [facility] Address: [address] [place] [address] Performed By: #### 5 7021-8 ####[facility] LABORATORYCLIA [id number] [place] [address] [place] Neutrophils (Bld) [#/Vol] 2.61 10*3/uL Normal 1.45-7.50 [facility] Comment on above: Order Comment: Speci men Type: BLOOD SPECIMENOrdering Facility: [facility] Address: [address] [place] [address] Performed By: #### 5 7021-8 ####[facility] LABORATORYCLIA [id number] [place] [id number] [place] Neutrophils/100 WBC (Bld) 72.3 % Normal [facility] Comment on above: Order Comment: Speci men Type: BLOOD SPECIMENOrdering Facility: [facility] Address: [address] [place] [address] Performed By: #### 5 7021-8 ####[facility] LABORATORYCLIA [id number] [place] [id number] [place] Nucleated RBC (Bld) [#/Vol] 10*3/uL Normal <0.01 [facility] Comment on above: Order Comment: Speci men Type: BLOOD SPECIMENOrdering Facility: [facility] Address: [address] [place] [address] Performed By: #### 5 7021-8 ####[facility] LABORATORYCLIA [id number] [place] [id number] [place] Nucleated RBC/100 WBC (Bld) [Ratio] 0.0 /100 WBC Normal [facility] Comment on above: Order Comment: Speci men Type: BLOOD SPECIMENOrdering Facility: [facility] Address: [address] [place] [address] Performed By: #### 5 7021-8 ####[facility] LABORATORYCLIA [id number] [place] [id number] [place] Platelet mean volume (Bld) [Entitic vol] 10.0 fL Normal 9.0-12.7 [facility] Comment on above: Order Comment: Speci men Type: BLOOD SPECIMENOrdering Facility: [facility] Address: [address] [place] [address] Performed By: #### 5 7021-8 ####[facility] LABORATORYCLIA [id number] [place] [id number] [place] Platelets (Bld) [#/Vol] 44 10*3/uL Low 150-400 [facility] Comment on above: Order Comment: Speci men Type: BLOOD SPECIMENOrdering Facility: [facility] Address: [address] [place] [address] Performed By: #### 5 7021-8 ####[facility] LABORATORYCLIA [id number] [place] [id number] [place] RBC (Bld) [#/Vol] 4.07 10*6/uL Low 4.20-6.00 [facility] Comment on above: Order Comment: Speci men Type: BLOOD SPECIMENOrdering Facility: [facility] Address: [address] [place] [address] Performed By: #### 5 7021-8 ####[facility] LABORATORYCLIA [id number] [place] [id number] [place] WBC (Bld) [#/Vol] 3.61 10*3/uL Low 3.70-11.00 [facility] Comment on above: Order Comment: Speci men Type: BLOOD SPECIMENOrdering Facility: [facility] Address: [address] [place] [address] Performed By: #### 5 7021-8 ####[facility] LABORATORYCLIA [id number] [place] [address] [place] CK SerPl-cCncon 02-06-2024 CK [Catalytic activity/Vol] 448 U/L High 51-298 [facility] Comment on above: Order Comment: Speci men Type: BLOOD SPECIMENOrdering Facility: [facility] Address: [address] [place] [address] Performed By: #### 2 157-6 ####[facility] LABORATORYCLIA [id number] [place] [address] [place] CONSULTon 02-06-2024 CONSULT Normal [facility] CONSULT PROGon 02-06-2024 CONSULT PROG [facility] MRSA Spec Ql Culton 02-06-20 24 MRSA isol Org specific cx Ql (Unsp spec) ORGANISM ID: 1 Positive for Methicillin-SUSCEPTIBLE Staphylococcus aureus Normal [facility] Comment on above: Performed By: #### 1 3317-3 ####[facility] LABCLIA [id number] [place] [address] [place] Magnesium SerPl-mCncon 02-05 Magnesium [Mass/Vol] 1.6 mg/dL Low 1.7-2.3 [facility] Comment on above: Order Comment: Speci men Type: BLOOD SPECIMENOrdering Facility: [facility] Address: [address] [place] [address] Performed By: #### 2 4321-2, 2777-1, 30138-7 ####[facility] LABORATORYCLIA [id number] [place] [id number] [place] NURSING PROGon 02-06-2024 NURSING PROG Normal [facility] PT panel Coag (PPP)on 2023 INR Coag (PPP) [Relative time] 1.2 {INR} Normal 0.9-1.3 [facility] Comment on above: Order Comment: Berna champion Type: BLOOD SPECIMENOrdering Facility: [facility] Address: [address] [place] [address] Result Comment: Kecia min K Antagonist (VKA) Therapeutic Range: INR 2 to 3 (Target INR of 2.5)Note: For patients treated with VKA drugs, such as warfarin, the [employer] 2012 Guideline recommends a therapeutic INR range of 2 to 3 (target INR of 2.5). This recommendation includes high-risk patients with antiphospholipid syndrome with previous arterial or venous thromboembolism, current-generation mechanical or bioprosthetic aortic heart valve replacement.Note: Patients with mechanical aortic valve replacement and additional risk factors for thromboembolic events (atrial fibrillation, previous thromboembolism, LV dysfunction, hypercoagulable conditions) or an older generation mechanical AVR (i.e., ball in-Cage) or any mechanical MVR should have a INR therapeutic range of 2.5 to 3.5 (target INR of 3).Pinky GH, et al. Chest 2012, 141:7S-47SNishyakov RA, et al. [facility] 2017, 70: 252-289 Performed By: #### 3 4528-0 ####[facility] LABORATORYCLIA [id number] [place] [address] [place] PT Coag (PPP) [Time] 13.4 s High 9.7-13.0 [facility] Comment on above: Order Comment: Berna champion Type: BLOOD SPECIMENOrdering Facility: [facility] Address: [address] [place] [address] Performed By: #### 3 4528-0 ####[facility] LABORATORYCLIA [id number] [place] [id number] [place] Phosphate SerPl-mCncon 02-05 Phosphate [Mass/Vol] 2.3 mg/dL Low 2.7-4.8 [facility] Comment on above: Order Comment: Berna champion Type: BLOOD SPECIMENOrdering Facility: [facility] Address: [address] [place] [address] Performed By: #### 2 4321-2, 2777-1, 21701-0 ####[facility] LABORATORYCLIA [id number] [place] [address] [place] TYPE + SCREENon 02-06-2024 ABO O [facility] Comment on above: Order Comment: Speci men Type: BLOOD SPECIMENOrdering Facility: [facility] Address: [address] [place] [address] Performed By: #### T SCR ####[facility] BLOOD BANKCLIA [id number] [place] [address] [place] HISTORICAL AB SCR STATUS Negative [facility] Comment on above: Order Comment: Speci men Type: BLOOD SPECIMENOrdering Facility: [facility] Address: [address] [place] [address] Performed By: #### T SCR ####[facility] BLOOD BANKCLIA [id number] [place] [address] [place] Rh Nom (Bld) Positive [facility] Comment on above: Order Comment: Speci men Type: BLOOD SPECIMENOrdering Facility: [facility] Address: [address] [place] [address] Performed By: #### T SCR ####[facility] BLOOD BANKCLIA [id number] [place] [address] [place] TYPE AND SCREEN EXPIRATION 02/09/2024 23:59 [facility] Comment on above: Order Comment: Speci men Type: BLOOD SPECIMENOrdering Facility: [facility] Address: [address] [place] [address] Performed By: #### T SCR ####[facility] BLOOD BANKCLIA [id number] [place] [address] [place] ALLIED HEALTHon 02-05-2024 ALLIED HEALTH Normal [facility] ALLIED HEALTH [facility] Bacteria Bld Culton 02-05-20 24 Bacteria identified Cx Nom (Bld) CULTURE, BLOOD: No growth 5 days Normal [facility] Comment on above: Performed By: #### 6 00-7 ####[facility] LABCLIA [id number] [place] [address] [place] Bacteria identified Cx Nom (Bld) CULTURE, BLOOD: No growth 5 days Normal [facility] Comment on above: Performed By: #### 6 00-7 ####[facility] LABCLIA [id number] [place] [address] [place] CBC W Auto Differential pane l (Bld)on 02-05-2024 Basophils (Bld) [#/Vol] 0.03 10*3/uL Normal <0.11 [facility] Comment on above: Order Comment: Speci men Type: BLOOD SPECIMENOrdering Facility: [facility] Address: [address] [place] [address] Performed By: #### 5 7021-8 ####[facility] LABORATORYCLIA [id number] [place] [address] [place] Basophils/100 WBC (Bld) 0.3 % Normal [facility] Comment on above: Order Comment: Speci men Type: BLOOD SPECIMENOrdering Facility: [facility] Address: [address] [place] [address] Performed By: #### 5 7021-8 ####[facility] LABORATORYCLIA [id number] [place] [address] [place] Differential cell count method Nom (Bld) Auto Normal [facility] Comment on above: Order Comment: Speci men Type: BLOOD SPECIMENOrdering Facility: [facility] Address: [address] [place] [address] Performed By: #### 5 7021-8 ####[facility] LABORATORYCLIA [id number] [place] [address] [place] Eosinophils (Bld) [#/Vol] 10*3/uL Normal <0.46 [facility] Comment on above: Order Comment: Speci men Type: BLOOD SPECIMENOrdering Facility: [facility] Address: [address] [place] [address] Performed By: #### 5 7021-8 ####[facility] LABORATORYCLIA [id number] [address] [place] Eosinophils/100 WBC (Bld) 0.0 % Normal [facility] Comment on above: Order Comment: Speci men Type: BLOOD SPECIMENOrdering Facility: [facility] Address: [address] [place] [address] Performed By: #### 5 7021-8 ####[facility] LABORATORYCLIA [id number] [place] [id number] [place] Erythrocyte distribution width (RBC) [Ratio] 17.9 % High 11.5-15.0 [facility] Comment on above: Order Comment: Speci men Type: BLOOD SPECIMENOrdering Facility: [facility] Address: [address] [place] [address] Performed By: #### 5 7021-8 ####[facility] LABORATORYCLIA [id number] [place] [address] [place] Hematocrit (Bld) [Volume fraction] 32.7 % Low 39.0-51.0 [facility] Comment on above: Order Comment: Speci men Type: BLOOD SPECIMENOrdering Facility: [facility] Address: [address] [place] [address] Performed By: #### 5 7021-8 ####[facility] LABORATORYCLIA [id number] [place] [address] [place] Hemoglobin (Bld) [Mass/Vol] 11.0 g/dL Low 13.0-17.0 [facility] Comment on above: Order Comment: Speci men Type: BLOOD SPECIMENOrdering Facility: [facility] Address: [address] [place] [address] Performed By: #### 5 7021-8 ####[facility] LABORATORYCLIA [id number] [place] [id number] [place] Immature granulocytes (Bld) [#/Vol] 0.06 10*3/uL Normal <0.10 [facility] Comment on above: Order Comment: Speci men Type: BLOOD SPECIMENOrdering Facility: [facility] Address: [address] [place] [address] Performed By: #### 5 7021-8 ####[facility] LABORATORYCLIA [id number] [place] [address] [place] Immature granulocytes/100 WBC (Bld) 0.6 % Normal [facility] Comment on above: Order Comment: Speci men Type: BLOOD SPECIMENOrdering Facility: [facility] Address: [address] [place] [address] Performed By: #### 5 7021-8 ####[facility] LABORATORYCLIA [id number] [place] [address] [place] Lymphocytes (Bld) [#/Vol] 0.71 10*3/uL Low 1.00-4.00 [facility] Comment on above: Order Comment: Speci men Type: BLOOD SPECIMENOrdering Facility: [facility] Address: [address] [place] [address] Performed By: #### 5 7021-8 ####[facility] LABORATORYCLIA [id number] [address] [place] Lymphocytes/100 WBC (Bld) 7.3 % Normal [facility] Comment on above: Order Comment: Speci men Type: BLOOD SPECIMENOrdering Facility: [facility] Address: [address] [place] [address] Performed By: #### 5 7021-8 ####[facility] LABORATORYCLIA [id number] [place] [address] [place] MCH (RBC) [Entitic mass] 24.5 pg Low 26.0-34.0 [facility] Comment on above: Order Comment: Speci men Type: BLOOD SPECIMENOrdering Facility: [facility] Address: [address] [place] [address] Performed By: #### 5 7021-8 ####[facility] LABORATORYCLIA [id number] [place] [id number] [place] MCHC (RBC) [Mass/Vol] 33.6 g/dL Normal 30.5-36.0 [facility] Comment on above: Order Comment: Speci men Type: BLOOD SPECIMENOrdering Facility: [facility] Address: [address] [place] [address] Performed By: #### 5 7021-8 ####[facility] LABORATORYCLIA [id number] [place] [id number] [place] MCV (RBC) [Entitic vol] 72.8 fL Low 80.0-100.0 [facility] Comment on above: Order Comment: Speci men Type: BLOOD SPECIMENOrdering Facility: [facility] Address: [address] [place] [address] Performed By: #### 5 7021-8 ####[facility] LABORATORYCLIA [id number] [place] [id number] [place] Monocytes (Bld) [#/Vol] 1.07 10*3/uL High <0.87 [facility] Comment on above: Order Comment: Speci men Type: BLOOD SPECIMENOrdering Facility: [facility] Address: [address] [place] [address] Performed By: #### 5 7021-8 ####[facility] LABORATORYCLIA [id number] [place] [address] [place] Monocytes/100 WBC (Bld) 11.0 % Normal [facility] Comment on above: Order Comment: Speci men Type: BLOOD SPECIMENOrdering Facility: [facility] Address: [address] [place] [address] Performed By: #### 5 7021-8 ####[facility] LABORATORYCLIA [id number] [place] [address] [place] Neutrophils (Bld) [#/Vol] 7.82 10*3/uL High 1.45-7.50 [facility] Comment on above: Order Comment: Speci men Type: BLOOD SPECIMENOrdering Facility: [facility] Address: [address] [place] [address] Performed By: #### 5 7021-8 ####[facility] LABORATORYCLIA [id number] [place] [id number] [place] Neutrophils/100 WBC (Bld) 80.8 % Normal [facility] Comment on above: Order Comment: Speci men Type: BLOOD SPECIMENOrdering Facility: [facility] Address: [address] [place] [address] Performed By: #### 5 7021-8 ####[facility] LABORATORYCLIA [id number] [place] [address] [place] Nucleated RBC (Bld) [#/Vol] 10*3/uL Normal <0.01 [facility] Comment on above: Order Comment: Speci men Type: BLOOD SPECIMENOrdering Facility: [facility] Address: [address] [place] [address] Performed By: #### 5 7021-8 ####[facility] LABORATORYCLIA [id number] [place] [address] [place] Nucleated RBC/100 WBC (Bld) [Ratio] 0.0 /100 WBC Normal [facility] Comment on above: Order Comment: Speci men Type: BLOOD SPECIMENOrdering Facility: [facility] Address: [address] [place] [address] Performed By: #### 5 7021-8 ####[facility] LABORATORYCLIA [id number] [place] [address] [place] Platelet mean volume (Bld) [Entitic vol] 9.5 fL Normal 9.0-12.7 [facility] Comment on above: Order Comment: Speci men Type: BLOOD SPECIMENOrdering Facility: [facility] Address: [address] [place] [address] Performed By: #### 5 7021-8 ####[facility] LABORATORYCLIA [id number] [place] [address] [place] Platelets (Bld) [#/Vol] 51 10*3/uL Low 150-400 [facility] Comment on above: Order Comment: Speci men Type: BLOOD SPECIMENOrdering Facility: [facility] Address: [address] [place] [address] Result Comment: No c lot detected. Performed By: #### 5 7021-8 ####[facility] LABORATORYCLIA [id number] [place] [address] [place] RBC (Bld) [#/Vol] 4.49 10*6/uL Normal 4.20-6.00 [facility] Comment on above: Order Comment: Speci men Type: BLOOD SPECIMENOrdering Facility: [facility] Address: [address] [place], [place] [address] Performed By: #### 5 7021-8 ####[facility] LABORATORYCLIA [id number] [place] [id number] [place] WBC (Bld) [#/Vol] 9.69 10*3/uL Normal 3.70-11.00 [facility] Comment on above: Order Comment: Speci men Type: BLOOD SPECIMENOrdering Facility: [facility] Address: [address] [place] [address] Performed By: #### 5 7021-8 ####[facility] LABORATORYCLIA [id number] [place] [id number] [place] CK SerPl-cCncon 02-05-2024 CK [Catalytic activity/Vol] 1522 U/L High 51-298 [facility] Comment on above: Order Comment: Speci men Type: BLOOD SPECIMENOrdering Facility: [facility] Address: [address] [place] [address] Performed By: #### 2 157-6, 40480-4 ####[facility] LABORATORYCLIA [id number] [place] [id number] [place] CONSULT PROGon 02-05-2024 CONSULT PROG Normal [facility] CTA ABD/PEL/LOWER EXT W IVCO Non 02-05-2024 CTA ABD/PEL/LOWER EXT W IVCON Normal [facility] Comprehensive metabolic 2000 panelon 02-05-2024 Albumin [Mass/Vol] 3.8 g/dL Low 3.9-4.9 [facility] Comment on above: Order Comment: Speci men Type: BLOOD SPECIMENOrdering Facility: [facility] Address: [address] [place] [address] Performed By: #### 2 157-6, 01764-0 ####[facility] LABORATORYCLIA [id number] [place] [id number] [place] ALP [Catalytic activity/Vol] 87 U/L Normal 38-113 [facility] Comment on above: Order Comment: Speci men Type: BLOOD SPECIMENOrdering Facility: [facility] Address: [address] [place], [place] [address] Performed By: #### 2 157-6, 68893-9 ####[facility] LABORATORYCLIA [id number] [place] [id number] [place] ALT [Catalytic activity/Vol] 34 U/L Normal 10-54 [facility] Comment on above: Order Comment: Speci men Type: BLOOD SPECIMENOrdering Facility: [facility] Address: [address] [place] [address] Performed By: #### 2 157-6, 58178-1 ####[facility] LABORATORYCLIA [id number] [place] [id number] [place] [place] Anion gap [Moles/Vol] 16 mmol/L High 8-15 [facility] Comment on above: Order Comment: Speci men Type: BLOOD SPECIMENOrdering Facility: [facility] Address: [address] [place] [address] Performed By: #### 2 157-6, 92928-6 ####[facility] LABORATORYCLIA [id number] [place] [id number] [place] AST [Catalytic activity/Vol] 99 U/L High 14-40 [facility] Comment on above: Order Comment: Speci men Type: BLOOD SPECIMENOrdering Facility: [facility] Address: [address] [place] [address] Performed By: #### 2 157-6, 07415-9 ####[facility] LABORATORYCLIA [id number] [place] [id number] [place] Bilirubin [Mass/Vol] 0.7 mg/dL Normal 0.2-1.3 [facility] Comment on above: Order Comment: Speci men Type: BLOOD SPECIMENOrdering Facility: [facility] Address: [address] [place] [address] Performed By: #### 2 157-6, 34273-6 ####[facility] LABORATORYCLIA [id number] [place] [id number] [place] Calcium [Mass/Vol] 8.6 mg/dL Normal 8.5-10.2 [facility] Comment on above: Order Comment: Speci men Type: BLOOD SPECIMENOrdering Facility: [facility] Address: [address] [place] [address] Performed By: #### 2 157-6, 17018-8 ####[facility] LABORATORYCLIA [id number] [place] [address] [place] Chloride [Moles/Vol] 86 mmol/L Low 98-107 [facility] Comment on above: Order Comment: Speci men Type: BLOOD SPECIMENOrdering Facility: [facility] Address: [address] [place] [address] Performed By: #### 2 157-6, 94542-5 ####[facility] LABORATORYCLIA [id number] [place] [id number] [place] CO2 [Moles/Vol] 18 mmol/L Low 22-30 [facility] Comment on above: Order Comment: Speci men Type: BLOOD SPECIMENOrdering Facility: [facility] Address: [address] [place] [address] Performed By: #### 2 157-6, 59795-5 ####[facility] LABORATORYCLIA [id number] [place] [id number] [place] Creatinine [Mass/Vol] 1.01 mg/dL Normal 0.73-1.22 [facility] Comment on above: Order Comment: Speci men Type: BLOOD SPECIMENOrdering Facility: [facility] Address: [address] [place] [address] Performed By: #### 2 157-6, 85017-2 ####[facility] LABORATORYCLIA [id number] [place] [id number] [place] Creatinine and Glomerular filtration rate.predicted panel (S/P/Bld) 88 mL/min/1.73m??? Normal >=60 [facility] Comment on above: Order Comment: Speci men Type: BLOOD SPECIMENOrdering Facility: [facility] Address: [address] [place] [address] Result Comment: Puja mated Glomerular Filtration Rate (eGFR) is calculated using the 2020 CKD-EPI creatinine equation. This equation utilizes serum creatinine, sex, and age as parameters. The creatinine assay has traceable calibration to isotope dilution-mass spectrometry. Refer to KDIGO guidelines for clinical interpretation. In patients with unstable renal function, e.g. those with acute kidney injury, the eGFR may not accurately reflect actual GFR. Performed By: #### 2 157-6, 01555-5 ####[facility]ORATORYCLIA [id number] [place] [id number] [place] Glucose [Mass/Vol] 105 mg/dL High 74-99 [facility] Comment on above: Order Comment: Berna champion Type: BLOOD SPECIMENOrdering Facility: [facility] Address: [address] [place] [address] Result Comment: The [place] Diabetes Association (ADA) provides guidance for cutoff values for fasting glucose and random glucose. The ADA defines fasting as no caloric intake for at least 8 hours. Fasting plasma glucose results between 100 to 125 mg/dL indicate increased risk for diabetes (prediabetes).Fasting plasma glucose results greater than or equal to 126 mg/dL meet the criteria for diagnosis of diabetes. In the absence of unequivocal hyperglycemia, results should be confirmed by repeat testing. In a patient with classic symptoms of hyperglycemia or hyperglycemic crisis, random plasma glucose results greater than or equal to 200 mg/dL meet the criteria for diagnosis of diabetes.Reference: Standards of Medical Care in Diabetes 2016, [place] [employer]. Diabetes Care. 2016.39(Suppl 1). Performed By: #### 2 157-6, 95678-9 ####[facility] LABORATORYCLIA [id number] [place] [id number] [place] Potassium [Moles/Vol] 3.1 mmol/L Low 3.7-5.1 [facility] Comment on above: Order Comment: Berna champion Type: BLOOD SPECIMENOrdering Facility: [facility] Address: [address] [place] [address] Performed By: #### 2 157-6, 83297-5 ####[facility] LABORATORYCLIA [id number] [place] [id number] [place] Protein [Mass/Vol] 7.0 g/dL Normal 6.3-8.0 [facility] Comment on above: Order Comment: Berna champion Type: BLOOD SPECIMENOrdering Facility: [facility] Address: [address] [place] [address] Performed By: #### 2 157-6, 19552-6 ####[facility] LABORATORYCLIA [id number] [place] [id number] [place] Sodium [Moles/Vol] 120 mmol/L Low 136-144 [facility] Comment on above: Order Comment: Speci men Type: BLOOD SPECIMENOrdering Facility: [facility] Address: [address] [place] [address] Performed By: #### 2 157-6, 57096-7 ####[facility] LABORATORYCLIA [id number] [place] [id number] [place] Urea nitrogen [Mass/Vol] 8 mg/dL Low 9-24 [facility] Comment on above: Order Comment: Speci men Type: BLOOD SPECIMENOrdering Facility: [facility] Address: [address] [place] [address] Performed By: #### 2 157-6, 19825-7 ####[facility] LABORATORYCLIA [id number] [place] [id number] [place] ED NOTEon 02-05-2024 ED NOTE HNO ID: [id number] Author: STACY ORTIZ RN Service: General Surgery Author Type: Registered Nurse Type: ED Notes Filed: 02/05/2024 22:54 Note Text: RN called report to Arpita BEASLEY on PK3A. Normal [facility] ED PROV NOTEon 02-05-2024 ED PROV NOTE Normal [facility] ED Triage Noteon 02-05-2024 ED Triage Note Normal [facility] HISTORY PHYSICALon HISTORY PHYSICAL Normal [facility] NURSING PROGon 02-05-2024 NURSING PROG Normal [facility] SEPSIS LACTATE W/ REFLEX (IN ITIAL)on 02-05-2024 Lactate [Moles/Vol] 2.1 mmol/L High 0.0-2.0 [facility] Comment on above: Order Comment: Speci men Type: BLOOD SPECIMENOrdering Facility: [facility] Address: [address] [place] [address] Performed By: #### S LACTR ####[facility]ORATORYCLIA [id number] [place] [id number] [place] SEPSIS LACTATE W/ REFLEX (SE COND)on 02-05-2024 Lactate [Moles/Vol] 2.4 mmol/L High 0.0-2.0 [facility] Comment on above: Order Comment: Speci men Type: BLOOD SPECIMENOrdering Facility: [facility] Address: [address] [place] [address] Performed By: #### S LACT2 ####[facility] LABORATORYCLIA [id number] [place] [id number] [place] US DVT LOWER LTon 02-05-2024 US DVT LOWER LT Normal [facility] Urinalysis complete panel (U )on 02-05-2024 Bacteria LM.HPF (Urine sed) [#/Area] Rare Abnormal None Seen [facility] Comment on above: Order Comment: Speci men Type: URINE SPECIMENOrdering Facility: [facility] Address: [address] [place] [address] Performed By: #### 2 4356-8 ####[facility] LABORATORYCLIA [id number] [place] [address] [place] Bilirubin Ql (U) Negative Normal Negative [facility] Comment on above: Order Comment: Speci men Type: URINE SPECIMENOrdering Facility: [facility] Address: [address] [place] [address] Performed By: #### 2 4356-8 ####[facility]ORATORYCLIA [id number] [place] [id number] [place] Clarity (Unsp spec) Clear Normal Clear [facility] Comment on above: Order Comment: Speci men Type: URINE SPECIMENOrdering Facility: [facility] Address: [address] [place] [address] Performed By: #### 2 4356-8 ####[facility]ORATORYCLIA [id number] [place] [id number] [place] Color (U) Colorless Normal Yellow [facility] Comment on above: Order Comment: Speci men Type: URINE SPECIMENOrdering Facility: [facility] Address: [address] [place], [place] [address] Performed By: #### 2 4356-8 ####[facility]ORATORYCLIA [id number] [address] Glucose Test strip (U) [Mass/Vol] Negative Normal Trace, Negative [facility] Comment on above: Order Comment: Speci men Type: URINE SPECIMENOrdering Facility: [facility] Address: [address] [place] [address] Performed By: #### 2 4356-8 ####[facility]ORATORYCLIA [id number] [place] [address] [place] Hemoglobin Ql (U) 1+ Abnormal Negative, Trace [facility] Comment on above: Order Comment: Speci men Type: URINE SPECIMENOrdering Facility: [facility] Address: [address] [place] [address] Performed By: #### 2 4356-8 ####[facility] LABORATORYCLIA [id number] [address] [place] Ketones Ql (U) Negative Normal Negative, Trace [facility] Comment on above: Order Comment: Speci men Type: URINE SPECIMENOrdering Facility: [facility] Address: [address] [place] [address] Performed By: #### 2 4356-8 ####[facility]ORATORYCLIA [id number] [address] Leukocyte esterase Test strip Ql (U) Negative Normal Negative, 25 Lauren/uL [facility] Comment on above: Order Comment: Speci men Type: URINE SPECIMENOrdering Facility: [facility] Address: [address] [place] [address] Performed By: #### 2 4356-8 ####[facility]ORATORYCLIA [id number] [address] [place] Nitrite Ql (U) Negative Normal Negative [facility] Comment on above: Order Comment: Speci men Type: URINE SPECIMENOrdering Facility: [facility] Address: [address] [place] [address] Performed By: #### 2 4356-8 ####[facility]ORATORYCLIA [id number] [place] [id number] [place] pH (U) 6.5 [pH] Normal 5.0-8.0 [facility] Comment on above: Order Comment: Speci men Type: URINE SPECIMENOrdering Facility: [facility] Address: [address] [place] [address] Performed By: #### 2 4356-8 ####[facility]ORATORYCLIA [id number] [place] [id number] [place] Protein (U) [Mass/Vol] Negative Normal Trace, Negative [facility] Comment on above: Order Comment: Speci men Type: URINE SPECIMENOrdering Facility: [facility] Address: [address] [place] [address] Performed By: #### 2 4356-8 ####[facility]ORATORYCLIA [id number] [place] [id number] [place] RBC LM.HPF (Urine sed) [#/Area] 0-3 /HPF Normal 0-3 /HPF [facility] Comment on above: Order Comment: Speci men Type: URINE SPECIMENOrdering Facility: [facility] Address: [address] [place] [address] Performed By: #### 2 4356-8 ####[facility]ORATORYCLIA [id number] [place] [id number] [place] Specific gravity (U) [Rel density] 1.005 Normal 1.005-1.030 [facility] Comment on above: Order Comment: Speci men Type: URINE SPECIMENOrdering Facility: [facility] Address: [address] [place] [address] Performed By: #### 2 4356-8 ####[facility]ORATORYCLIA [id number] [place] [id number] [place] Urobilinogen Ql (U) Normal Normal Normal [facility] Comment on above: Order Comment: Speci men Type: URINE SPECIMENOrdering Facility: [facility] Address: [address] [place] [address] Performed By: #### 2 4356-8 ####[facility]ORATORYCLIA [id number] [place] [address] [place] WBC LM.HPF (Urine sed) [#/Area] 0-5 /HPF Normal 0-5 /HPF [facility] Comment on above: Order Comment: Speci men Type: URINE SPECIMENOrdering Facility: [facility] Address: [address] [place] [address] Performed By: #### 2 4356-8 ####[facility]ORATORYCLIA [id number] [place] [address] [place] XR TIBIA FIBULA 2V AP/LAT LT on 02-05-2024 XR TIBIA FIBULA 2V AP/LAT LT Normal [facility] CBC W Auto Differential pane l (Bld)on 11-06-2023 Basophils (Bld) [#/Vol] 10*3/uL Normal <0.11 [facility] Comment on above: Order Comment: Speci men Type: BLOOD SPECIMENOrdering Facility: [facility] Address: [address] [place] [address] Performed By: #### 5 7021-8 ####[facility] CENTERIA [id number] [place] [address] [place] Basophils/100 WBC (Bld) 0.3 % Normal [facility] Comment on above: Order Comment: Speci men Type: BLOOD SPECIMENOrdering Facility: [facility] Address: [address] [place] [address] Performed By: #### 5 7021-8 ####[facility] LWIA [id number] [place] [address] [place] Differential cell count method Nom (Bld) Auto Normal [facility] Comment on above: Order Comment: Speci men Type: BLOOD SPECIMENOrdering Facility: [facility] Address: [address] [place] [address] Performed By: #### 5 7021-8 ####[facility] LWCLIA [id number] [place] [address] [place] Eosinophils (Bld) [#/Vol] 0.17 10*3/uL Normal <0.46 [facility] Comment on above: Order Comment: Speci men Type: BLOOD SPECIMENOrdering Facility: [facility] Address: [address] [place] [address] Performed By: #### 5 7021-8 ####[facility] LWCLIA [id number] [place] [id number] [place] Eosinophils/100 WBC (Bld) 5.7 % Normal [facility] Comment on above: Order Comment: Speci men Type: BLOOD SPECIMENOrdering Facility: [facility] Address: [address] [place] [address] Performed By: #### 5 7021-8 ####[facility] LWCLIA [id number] [address] [place] Erythrocyte distribution width (RBC) [Ratio] 13.0 % Normal 11.5-15.0 [facility] Comment on above: Order Comment: Speci men Type: BLOOD SPECIMENOrdering Facility: [facility] Address: [address] [place] [address] Performed By: #### 5 7021-8 ####[facility] LWCLIA [id number] [address] [place] Hematocrit (Bld) [Volume fraction] 36.7 % Low 39.0-51.0 [facility] Comment on above: Order Comment: Speci men Type: BLOOD SPECIMENOrdering Facility: [facility] Address: [address] [place] [address] Performed By: #### 5 7021-8 ####[facility] LWCLIA [id number] [place] [id number] [place] Hemoglobin (Bld) [Mass/Vol] 12.4 g/dL Low 13.0-17.0 [facility] Comment on above: Order Comment: Speci men Type: BLOOD SPECIMENOrdering Facility: [facility] Address: [address] [place] [address] Performed By: #### 5 7021-8 ####[facility] LWCLIA [id number] [place] [id number] [place] Immature granulocytes (Bld) [#/Vol] 10*3/uL Normal <0.10 [facility] Comment on above: Order Comment: Speci men Type: BLOOD SPECIMENOrdering Facility: [facility] Address: [address] [place] [address] Performed By: #### 5 7021-8 ####[facility] LWIA [id number] [address] Immature granulocytes/100 WBC (Bld) 0.3 % Normal [facility] Comment on above: Order Comment: Speci men Type: BLOOD SPECIMENOrdering Facility: [facility] Address: [address] [place] [address] Performed By: #### 5 7021-8 ####[facility] CENTERIA [id number] [address] Lymphocytes (Bld) [#/Vol] 0.84 10*3/uL Low 1.00-4.00 [facility] Comment on above: Order Comment: Speci men Type: BLOOD SPECIMENOrdering Facility: [facility] Address: [address] [place] [address] Performed By: #### 5 7021-8 ####[facility] LWIA [id number] [address] [place] Lymphocytes/100 WBC (Bld) 28.4 % Normal [facility] Comment on above: Order Comment: Speci men Type: BLOOD SPECIMENOrdering Facility: [facility] Address: [address] [place] [address] Performed By: #### 5 7021-8 ####[facility] LWCLIA [id number] [place] [id number] [place] MCH (RBC) [Entitic mass] 28.6 pg Normal 26.0-34.0 [facility] Comment on above: Order Comment: Speci men Type: BLOOD SPECIMENOrdering Facility: [facility] Address: [address] [place] [address] Performed By: #### 5 7021-8 ####[facility] LWCLIA [id number] [place] [id number] [place] MCHC (RBC) [Mass/Vol] 33.8 g/dL Normal 30.5-36.0 [facility] Comment on above: Order Comment: Speci men Type: BLOOD SPECIMENOrdering Facility: [facility] Address: [address] [place] [address] Performed By: #### 5 7021-8 ####[facility] LWCLIA [id number] [place] [address] [place] MCV (RBC) [Entitic vol] 84.8 fL Normal 80.0-100.0 [facility] Comment on above: Order Comment: Speci men Type: BLOOD SPECIMENOrdering Facility: [facility] Address: [address] [place] [address] Performed By: #### 5 7021-8 ####[facility] LWCLIA [id number] [place] [address] [place] Monocytes (Bld) [#/Vol] 0.26 10*3/uL Normal <0.87 [facility] Comment on above: Order Comment: Speci men Type: BLOOD SPECIMENOrdering Facility: [facility] Address: [address] [place] [address] Performed By: #### 5 7021-8 ####[facility] LWCLIA [id number] [place] [id number] [facility] [place] Monocytes/100 WBC (Bld) 8.8 % Normal [facility] Comment on above: Order Comment: Speci men Type: BLOOD SPECIMENOrdering Facility: [facility] Address: [address] [place] [address] Performed By: #### 5 7021-8 ####[facility] LWCLIA [id number] [place] [address] [place] Neutrophils (Bld) [#/Vol] 1.67 10*3/uL Normal 1.45-7.50 [facility] Comment on above: Order Comment: Speci men Type: BLOOD SPECIMENOrdering Facility: [facility] Address: [address] [place] [address] Performed By: #### 5 7021-8 ####[facility] LWCLIA [id number] [place] [id number] [place] Neutrophils/100 WBC (Bld) 56.5 % Normal [facility] Comment on above: Order Comment: Speci men Type: BLOOD SPECIMENOrdering Facility: [facility] Address: [address] [place] [address] Performed By: #### 5 7021-8 ####[facility] LWIA [id number] [place] [address] [place] Nucleated RBC (Bld) [#/Vol] 10*3/uL Normal <0.01 [facility] Comment on above: Order Comment: Speci men Type: BLOOD SPECIMENOrdering Facility: [facility] Address: [address] [place] [address] Performed By: #### 5 7021-8 ####[facility] LWCLIA [id number] [place] [id number] [place] Nucleated RBC/100 WBC (Bld) [Ratio] 0.0 /100 WBC Normal [facility] Comment on above: Order Comment: Speci men Type: BLOOD SPECIMENOrdering Facility: [facility] Address: [address] [place] [address] Performed By: #### 5 7021-8 ####[facility] LWCLIA [id number] [place] [id number] [place] Platelet mean volume (Bld) [Entitic vol] 9.5 fL Normal 9.0-12.7 [facility] Comment on above: Order Comment: Speci men Type: BLOOD SPECIMENOrdering Facility: [facility] Address: [address] [place] [address] Performed By: #### 5 7021-8 ####[place] [facility] LWCLIA [id number] [place] [id number] [facility] Platelets (Bld) [#/Vol] 71 10*3/uL Low 150-400 [facility] Comment on above: Order Comment: Speci men Type: BLOOD SPECIMENOrdering Facility: [facility] Address: [address] [place] [address] Result Comment: No c lot detected. Performed By: #### 5 7021-8 ####[facility] LWCLIA [id number] [place] [id number] [facility] RBC (Bld) [#/Vol] 4.33 10*6/uL Normal 4.20-6.00 [facility] Comment on above: Order Comment: Speci men Type: BLOOD SPECIMENOrdering Facility: [facility] Address: [address] [place] [address] Performed By: #### 5 7021-8 ####[facility] LWCLIA [id number] [place] [id number] [facility] WBC (Bld) [#/Vol] 2.96 10*3/uL Low 3.70-11.00 [facility] Comment on above: Order Comment: Speci men Type: BLOOD SPECIMENOrdering Facility: [facility] Address: [address] [place] [address] Performed By: #### 5 7021-8 ####[facility] LWCLIA [id number] [place] [id number] [facility] CNNURSEon 11-06-2023 CNNURSE Nurse Visit ([facility]) GALINDO SNOW ([id number]) 1970 M Date Time Provider Department 11/06/23 8:30 AM NURSE CHAR [facility] During your visit today, we recorded the following information about you: Rodolfo Dangelo RN 11/06/2023 8:46 AM Signed Patient has been identified by name and date of : YES The patient is here for an injection of Testosterone Dose: 200 mg Route: Intramuscular Given without incident. Site: right upper quadrant gluteus Pt. supplied medication. Pt. tolerated without incident. Future appointments scheduled. Rodolfo Dangelo RN Allergies As of Date: 11/06/2023 Noted Allergy Reaction DILAUDID (HYDROMORPHONE (BULK)) 11/03/2014 1 - Mental Status Change 9 - Itching Date Reviewed: 11/06/2023 Reviewed by: Rodolfo Dangelo RN - Fully Assessed Reason for Visit: Imm/Inj [58] Cmt: Depo-testosterone Primary Visit Diagnosis:Hypogonadism in male [E29.1] Prescriptions as of 11/06/2023 - pantoprazole DR (PROTONIX) 40 mg tablet Take 1 tablet by mouth two times a day before meals at 6 am and 4 pm. - lisinopril (ZESTRIL) 40 mg tablet Take 1 tablet by mouth once daily. - hydrOXYzine pamoate (VISTARIL) 50 mg capsule Take 1 capsule by mouth three times a day as needed for anxiety. - testosterone cypionate (DEPO-TESTOSTERONE) 200 mg/mL injection Inject 1 mL intramuscularly one time a week for 180 days. - traZODone (DESYREL) 100 mg tablet Take 2 tablets by mouth daily at bedtime. - tiZANidine (ZANAFLEX) 4 mg tablet Take 1 tablet by mouth every 8 hours as needed. - sildenafil (VIAGRA) 100 mg tablet Take 1 tablet by mouth as needed. 30-60 minutes before sexual intercourse - magnesium oxide (MAG-OX) 400 mg (241.3 mg magnesium) tablet Take 1 tablet by mouth once daily. - thiamine (VITAMIN B1) 100 mg tablet 1 tablet by ORAL/FEEDING TUBE route three times a day. - venlafaxine ER (EFFEXOR XR) 37.5 mg 24 hr capsule Take 1 capsule by mouth daily with breakfast. - hydroCHLOROthiazide 12.5 mg capsule Take 1 capsule by mouth once daily. - docusate sodium (COLACE) 100 mg capsule Take 1 capsule by mouth once daily. - therapeutic multivitamin-minerals (THERA M PLUS, FERROUS FUMARAT,) 9 mg iron-400 mcg tablet Take 1 tablet by mouth once daily. Facility-Administered Medications as of 11/06/2023 - testosterone cypionate 200 mg injection (DEPO-TESTOSTERONE) Meds Comments as of 12/30/2019: Pt stopped taking medications about 2 weeks ago- restarted 12/27 Problem List As Of Date 11/06/2023 Noted Resolved Thrombocytopenia (HCC) [D69.6] 07/01/2013 Gastropathy [K31.9] Alcohol use disorder [F10.90] Gallstones [K80.20] PUD (peptic ulcer disease) [K27.9] GERD (gastroesophageal reflux disease) [K21.9] 11/03/2014 PTSD (post-traumatic stress disorder) [F43.10] 11/03/2014 Bilateral hand numbness [R20.0] 10/22/2016 Cervicalgia [M54.2] 10/22/2016 Chronic neck pain [M54.2, G89.29] 10/22/2016 Sprain of anterior talofibular ligament of righ*07/07/2017 Lateral epicondylitis of left elbow [M77.12] 11/11/2017 Arthralgia of right acromioclavicular joint [M2*04/21/2018 Anxiety [F41.9] 06/14/2018 GI bleed [K92.2] 12/30/2019 01/01/2020 Non compliance with medical treatment [Z91.199] 12/30/2019 Abdominal pain [R10.9] 08/29/2020 Alcoholic cirrhosis of liver without ascites (H*03/01/2022 History of esophageal varices [Z87.19] 03/01/2022 Hypogonadism in male [E29.1] 05/09/2022 Essential hypertension [I10] 08/10/2022 Acute upper GI bleeding [K92.2] 03/30/2023 04/04/2023 Bleeding esophageal varices (HCC) [I85.01] 03/31/2023 04/04/2023 Hematemesis with nausea [K92.0] 03/31/2023 04/11/2023 Alcohol abuse [F10.10] 03/31/2023 Alcohol withdrawal delirium (HCC) [F10.931] 03/31/2023 Upper GI bleed [K92.2] 04/10/2023 04/11/2023 LLQ abdominal pain [R10.32] 04/10/2023 04/11/2023 Hematemesis without nausea [K92.0] 04/10/2023 04/11/2023 Nicotine use disorder, F17.2 [F17.200] 04/10/2023 Acute upper GI bleed [K92.2] 05/02/2023 05/03/2023 Severe protein-calorie malnutrition (HCC) [E43] 05/03/2023 GI bleeding [K92.2] 05/03/2023 05/04/2023 Alcohol use disorder, severe, dependence (HCC) *05/04/2023 Hematemesis [K92.0] 05/06/2023 05/10/2023 Withdrawal symptoms, alcohol, with delirium (HC*05/06/2023 05/10/2023 Acute encephalopathy [G93.40] 05/06/2023 05/10/2023 Alcoholic cirrhosis (HCC) [K70.30] 05/06/2023 Alcohol withdrawal syndrome with complication (*05/07/2023 05/10/2023 Delirium [R41.0] 05/08/2023 05/10/2023 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] 05/10/2023 Encounter Status:Closed by ROODLFO DANGELO on 11/06/23 Normal [facility] Comprehensive metabolic 2000 panelon 11-06-2023 Albumin [Mass/Vol] 4.3 g/dL Normal 3.9-4.9 [facility] Comment on above: Order Comment: Speci men Type: BLOOD SPECIMENOrdering Facility: [facility] Address: [address] [place] [address] Performed By: #### 2 4323-8 ####YAKOV [facility] LWIA [id number] [place] [address] [place] ALP [Catalytic activity/Vol] 76 U/L Normal 38-113 [facility] Comment on above: Order Comment: Speci men Type: BLOOD SPECIMENOrdering Facility: [facility] Address: [address] [place] [address] Performed By: #### 2 4323-8 ####[facility] LWCLIA [id number] [place] [id number] [place] ALT [Catalytic activity/Vol] 15 U/L Normal 10-54 [facility] Comment on above: Order Comment: Speci men Type: BLOOD SPECIMENOrdering Facility: [facility] Address: [address] [place] [address] Performed By: #### 2 4323-8 ####[facility] LWCLIA [id number] [place] [address] [place] [facility] Anion gap [Moles/Vol] 10 mmol/L Normal 9-18 [facility] Comment on above: Order Comment: Speci men Type: BLOOD SPECIMENOrdering Facility: [facility] Address: [address] [place] [address] Performed By: #### 2 4323-8 ####[facility] LWCLIA [id number] [address] [place] AST [Catalytic activity/Vol] 26 U/L Normal 14-40 [facility] Comment on above: Order Comment: Speci men Type: BLOOD SPECIMENOrdering Facility: [facility] Address: [address] [place] [address] Performed By: #### 2 4323-8 ####[facility] LWCLIA [id number] [place] [id number] [place] Bilirubin [Mass/Vol] 0.4 mg/dL Normal 0.2-1.3 [facility] Comment on above: Order Comment: Speci men Type: BLOOD SPECIMENOrdering Facility: [facility] Address: [address] [place] [address] Performed By: #### 2 4323-8 ####[facility] LWCLIA [id number] [place] [address] [place] Calcium [Mass/Vol] 9.4 mg/dL Normal 8.5-10.2 [facility] Comment on above: Order Comment: Speci men Type: BLOOD SPECIMENOrdering Facility: [facility] Address: [address] [place] [address] Performed By: #### 2 4323-8 ####[facility] LWCLIA [id number] [place] [id number] [place] Chloride [Moles/Vol] 97 mmol/L Normal 97-105 [facility] Comment on above: Order Comment: Speci men Type: BLOOD SPECIMENOrdering Facility: [facility] Address: [address] [place] [address] Performed By: #### 2 4323-8 ####[facility] LWCLIA [id number] [place] [id number] [place] CO2 [Moles/Vol] 27 mmol/L Normal 22-30 [facility] Comment on above: Order Comment: Speci men Type: BLOOD SPECIMENOrdering Facility: [facility] Address: [address] [place] [address] Performed By: #### 2 4323-8 ####[facility] LWCLIA [id number] [place] [id number] [place] Creatinine [Mass/Vol] 1.20 mg/dL Normal 0.73-1.22 [facility] Comment on above: Order Comment: Speci men Type: BLOOD SPECIMENOrdering Facility: [facility] Address: [address] [place] [address] Performed By: #### 2 4323-8 ####[facility] LWCLIA [id number] [place] [id number] [place] Creatinine and Glomerular filtration rate.predicted panel (S/P/Bld) 71 mL/min/1.73m??? Normal >=60 [facility] Comment on above: Order Comment: Berna champion Type: BLOOD SPECIMENOrdering Facility: [facility] Address: [address] [place] [address] Result Comment: Puja mated Glomerular Filtration Rate (eGFR) is calculated using the 2020 CKD-EPI creatinine equation. This equation utilizes serum creatinine, sex, and age as parameters. The creatinine assay has traceable calibration to isotope dilution-mass spectrometry. Refer to KDIGO guidelines for clinical interpretation. In patients with unstable renal function, e.g. those with acute kidney injury, the eGFR may not accurately reflect actual GFR. Performed By: #### 2 4323-8 ####[facility] LWCLIA [id number] [place] [address] [place] Glucose [Mass/Vol] 186 mg/dL High 74-99 [facility] Comment on above: Order Comment: Berna champion Type: BLOOD SPECIMENOrdering Facility: [facility] Address: [address] [place] [address] Result Comment: The [place] Diabetes Association (ADA) provides guidance for cutoff values for fasting glucose and random glucose. The ADA defines fasting as no caloric intake for at least 8 hours. Fasting plasma glucose results between 100 to 125 mg/dL indicate increased risk for diabetes (prediabetes). Fasting plasma glucose results greater than or equal to 126 mg/dL meet the criteria for diagnosis of diabetes. In the absence of unequivocal hyperglycemia, results should be confirmed by repeat testing. In a patient with classic symptoms of hyperglycemia or hyperglycemic crisis, random plasma glucose results greater than or equal to 200 mg/dL meet the criteria for diagnosis of diabetes. Reference: Standards of Medical Care in Diabetes 2016, [place] [employer] Association. Diabetes Care. 2016.39(Suppl 1). Performed By: #### 2 4323-8 ####[facility] LWCLIA [id number] [place] [address] [place] Potassium [Moles/Vol] 4.0 mmol/L Normal 3.7-5.1 [facility] Comment on above: Order Comment: Berna champion Type: BLOOD SPECIMENOrdering Facility: [facility] Address: [address] [place] [address] Performed By: #### 2 4323-8 ####[facility] LWCLIA [id number] [place] [id number] [place] Protein [Mass/Vol] 7.6 g/dL Normal 6.3-8.0 [facility] Comment on above: Order Comment: Speci men Type: BLOOD SPECIMENOrdering Facility: [facility] Address: [address] [place] [address] Performed By: #### 2 4323-8 ####[facility] LWCLIA [id number] [place] [address] [place] Sodium [Moles/Vol] 134 mmol/L Low 136-144 [facility] Comment on above: Order Comment: Speci men Type: BLOOD SPECIMENOrdering Facility: [facility] Address: [address] [place] [address] Performed By: #### 2 4323-8 ####[facility] LWIA [id number] [place] [address] [place] Urea nitrogen [Mass/Vol] 6 mg/dL Low 9-24 [facility] Comment on above: Order Comment: Speci men Type: BLOOD SPECIMENOrdering Facility: [facility] Address: [address] [place] [address] Performed By: #### 2 4323-8 ####[facility] LWCLIA [id number] [place] [id number] [place] Lipid 1996 panelon 4 Cholesterol [Mass/Vol] 102 mg/dL Normal <200 [facility] Comment on above: Order Comment: Speci men Type: BLOOD SPECIMENOrdering Facility: [facility] Address: [address] [place] [address] Result Comment: <200 mg/dL, Desirable 200-239 mg/dL, Borderline high >239 mg/dL, High Performed By: #### 2 4331-1, 2986-8 ####[facility] LABCLIA [id number] Cholesterol in HDL [Mass/Vol] 56 mg/dL Normal >39 [facility] Comment on above: Order Comment: Dipakyonatan champion Type: BLOOD SPECIMENOrdering Facility: [facility] Address: [address] [place] [address] Result Comment: 40-5 9 mg/dL, Acceptable >59 mg/dL, High: Negative risk factor for coronary heart disease <40 mg/dL, Low: Positive risk factor for coronary heart disease Performed By: #### 2 4331-1, 298-8 ####[facility] LABCLIA [id number] [address] STATES OF [facility] Cholesterol in LDL [Mass/Vol] 32 mg/dL Normal <100 [facility] Comment on above: Order Comment: Berna akira Type: BLOOD SPECIMENOrdering Facility: [facility] Address: [address] [place] [address] Result Comment: <100 mg/dL, Optimal 100-129 mg/dL, Near optimal/above optimal 130-159 mg/dL, Borderline high 160-189 mg/dL, High >189 mg/dL, Very high Secondary prevention optimal LDL Cholesterol levels are recommended to be < 70 mg/dL Performed By: #### 2 4331-1, 298-8 ####[facility] LABCLIA [id number] [address] Cholesterol in LDL/Cholesterol in HDL [Mass ratio] 0.57 {ratio} Normal <2.54 [facility] Comment on above: Order Comment: Dipakyonatan champion Type: BLOOD SPECIMENOrdering Facility: [facility] Address: [address] [place] [address] Result Comment: Jaden castro: 1. National Cholesterol Education Program ATP III Guideline At-A-Glance Quick Desk Reference: National Heart, Lung, and Blood Zillah. National Institutes of Health. 2001: NIH Publication No. 01-3305. 2. An International Atherosclerosis Society position paper: global recommendations for the management of dyslipidemia: executive summary, Atherosclerosis. 2014: 232(2):410-413. Performed By: #### 2 4331-1, 8 ####[facility] LABCLIA [id number] [address] [address] [place] Cholesterol in VLDL [Mass/Vol] 14 mg/dL Normal <30 [facility] Comment on above: Order Comment: Speci men Type: BLOOD SPECIMENOrdering Facility: [facility] Address: [address] [place] [address] Performed By: #### 2 4331-1, 8 ####[facility] LABCLIA [id number] [place] [address] [place] Cholesterol non HDL [Mass/Vol] 46 mg/dL Normal <130 [facility] Comment on above: Order Comment: Speci men Type: BLOOD SPECIMENOrdering Facility: [facility] Address: [address] [place] [address] Result Comment: <130 mg/dL, Optimal 130-159 mg/dL, Near optimal/above optimal 160-189 mg/dL, Borderline high 190-219 mg/dL, High >219 mg/dL, Very high Secondary prevention optimal non HDL Cholesterol levels are recommended to be <100 mg/dL Performed By: #### 2 4331-1, 8 ####[facility] LABCLIA [id number] [place] [address] [place] Cholesterol.total/ Cholesterol in HDL [Mass ratio] 1.82 {ratio} Normal <5.10 [facility] Comment on above: Order Comment: Speci men Type: BLOOD SPECIMENOrdering Facility: [facility] Address: [address] [place], [place] [address] Performed By: #### 2 4331-1, 8 ####[facility] LABCLIA [id number] [place] [address] [place] FASTING TIME 12 hrs Normal [facility] Comment on above: Order Comment: Speci men Type: BLOOD SPECIMENOrdering Facility: [facility] Address: [address] [place] [address] Performed By: #### 2 4331-1, 2986-03 ####[facility] LABCLIA [id number] [place] [address] [place] Triglyceride [Mass/Vol] 69 mg/dL Normal <150 [facility] Comment on above: Order Comment: Speci men Type: BLOOD SPECIMENOrdering Facility: [facility] Address: [address] [place] [address] Result Comment: <150 mg/dL, Normal 150-199 mg/dL, Borderline high 200-499 mg/dL, High >499 mg/dL, Very high Performed By: #### 2 4331-1, 2986-03 ####[facility] LABIA [id number] [address] [place] Testost SerPl-mCncon 024 Testosterone [Mass/Vol] 1057 ng/dL High 193-824 [facility] Comment on above: Order Comment: Speci men Type: BLOOD SPECIMENOrdering Facility: [facility] Address: [address] [place] [address] Result Comment: A te stosterone level in the 193-320 ng/dL range with associated clinical symptoms is considered low and may indicate hypogonadism (from NEJM 2010 363:123-135). Results >320 ng/dL are considered normal. Performed By: #### 2 4331-1, 8 ####[facility] LABIA [id number] [address] [place] CNNURSEon 10-24-2023 CNNURSE Nurse Visit (INTLKB) GALINDO SNOW ([id number]) 1970 M Date Time Provider Department 10/24/23 8:30 AM NURSE CHAR [facility] INTLKB During your visit today, we recorded the following information about you: Chucky Bustamante RN 10/24/2023 9:18 AM Signed Patient has been identified by name and date of : Yes Patient given Testosterone Cypionate 200 mg IM in the left upper quadrant gluteus. Patient tolerated injection well. Lot#: [id number] Exp date: 07/30 Chucky Bustamante RN Allergies As of Date: 10/24/2023 Noted Allergy Reaction DILAUDID (HYDROMORPHONE (BULK)) 11/03/2014 1 - Mental Status Change 9 - Itching Date Reviewed: 09/24/2023 Reviewed by: Myla Mazariegos MA - Fully Assessed Reason for Visit: Imm/Inj [58] Primary Visit Diagnosis:Hypogonadism in male [E29.1] Prescriptions as of 10/24/2023 - pantoprazole DR (PROTONIX) 40 mg tablet Take 1 tablet by mouth two times a day before meals at 6 am and 4 pm. - lisinopril (ZESTRIL) 40 mg tablet Take 1 tablet by mouth once daily. - hydrOXYzine pamoate (VISTARIL) 50 mg capsule Take 1 capsule by mouth three times a day as needed for anxiety. - testosterone cypionate (DEPO-TESTOSTERONE) 200 mg/mL injection Inject 1 mL intramuscularly one time a week for 180 days. - traZODone (DESYREL) 100 mg tablet Take 2 tablets by mouth daily at bedtime. - tiZANidine (ZANAFLEX) 4 mg tablet Take 1 tablet by mouth every 8 hours as needed. - sildenafil (VIAGRA) 100 mg tablet Take 1 tablet by mouth as needed. 30-60 minutes before sexual intercourse - magnesium oxide (MAG-OX) 400 mg (241.3 mg magnesium) tablet Take 1 tablet by mouth once daily. - thiamine (VITAMIN B1) 100 mg tablet 1 tablet by ORAL/FEEDING TUBE route three times a day. - venlafaxine ER (EFFEXOR XR) 37.5 mg 24 hr capsule Take 1 capsule by mouth daily with breakfast. - hydroCHLOROthiazide 12.5 mg capsule Take 1 capsule by mouth once daily. - docusate sodium (COLACE) 100 mg capsule Take 1 capsule by mouth once daily. - therapeutic multivitamin-minerals (THERA M PLUS, FERROUS FUMARAT,) 9 mg iron-400 mcg tablet Take 1 tablet by mouth once daily. Facility-Administered Medications as of 10/24/2023 - testosterone cypionate 200 mg injection (DEPO-TESTOSTERONE) Meds Comments as of 12/30/2019: Pt stopped taking medications about 2 weeks ago- restarted 12/27 Problem List As Of Date 10/24/2023 Noted Resolved Thrombocytopenia (HCC) [D69.6] 07/01/2013 Gastropathy [K31.9] Alcohol use disorder [F10.90] Gallstones [K80.20] PUD (peptic ulcer disease) [K27.9] GERD (gastroesophageal reflux disease) [K21.9] 11/03/2014 PTSD (post-traumatic stress disorder) [F43.10] 11/03/2014 Bilateral hand numbness [R20.0] 10/22/2016 Cervicalgia [M54.2] 10/22/2016 Chronic neck pain [M54.2, G89.29] 10/22/2016 Sprain of anterior talofibular ligament of righ*07/07/2017 Lateral epicondylitis of left elbow [M77.12] 11/11/2017 Arthralgia of right acromioclavicular joint [M2*04/21/2018 Anxiety [F41.9] 06/14/2018 GI bleed [K92.2] 12/30/2019 01/01/2020 Non compliance with medical treatment [Z91.199] 12/30/2019 Abdominal pain [R10.9] 08/29/2020 Alcoholic cirrhosis of liver without ascites (H*03/01/2022 History of esophageal varices [Z87.19] 03/01/2022 Hypogonadism in male [E29.1] 05/09/2022 Essential hypertension [I10] 08/10/2022 Acute upper GI bleeding [K92.2] 03/30/2023 04/04/2023 Bleeding esophageal varices (HCC) [I85.01] 03/31/2023 04/04/2023 Hematemesis with nausea [K92.0] 03/31/2023 04/11/2023 Alcohol abuse [F10.10] 03/31/2023 Alcohol withdrawal delirium (HCC) [F10.931] 03/31/2023 Upper GI bleed [K92.2] 04/10/2023 04/11/2023 LLQ abdominal pain [R10.32] 04/10/2023 04/11/2023 Hematemesis without nausea [K92.0] 04/10/2023 04/11/2023 Nicotine use disorder, F17.2 [F17.200] 04/10/2023 Acute upper GI bleed [K92.2] 05/02/2023 05/03/2023 Severe protein-calorie malnutrition (HCC) [E43] 05/03/2023 GI bleeding [K92.2] 05/03/2023 05/04/2023 Alcohol use disorder, severe, dependence (HCC) *05/04/2023 Hematemesis [K92.0] 05/06/2023 05/10/2023 Withdrawal symptoms, alcohol, with delirium (HC*05/06/2023 05/10/2023 Acute encephalopathy [G93.40] 05/06/2023 05/10/2023 Alcoholic cirrhosis (HCC) [K70.30] 05/06/2023 Alcohol withdrawal syndrome with complication (*05/07/2023 05/10/2023 Delirium [R41.0] 05/08/2023 05/10/2023 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] 05/10/2023 Visit Notes: >> Chucky Bustamante RN [facility] Oct 24, 2023 9:16 AM Status: Signed Patient has been identified by name and date of : Yes Patient given Testosterone Cypionate 200 mg IM in the left upper quadrant gluteus. Patient tolerated injection well. Lot#: [id number] Exp date: 07/30 Chucky Bustamante RN Encounter Status:Closed by CHUCKY BUSTAMANTE on 10/24/23 Normal [facility] MRI CERVICAL SPINE WO IVCONo n 09-29-2023 MRI CERVICAL SPINE WO IVCON Normal [facility] CNOVon 09-24-2023 CNOV Office Visit (INTLKB ) GALINDO SNOW ([id number]) 1970 M Date Time Provider Department 09/24/23 9:40 AM LUKE JACK INTLKB During your visit today, we recorded the following information about you: Pulse Respiration Blood pressure Weight 74/minute 18/minute 120/82 90.7 kg Luke Jack MD 09/24/2023 3:23 PM Signed Outpatient Internal Medicine - [facility] Patient name: Galindo Snow Medical Record: [id number] cc: Patient presents with: Recheck 53 year old male with ACTIVE PROBLEM LIST Thrombocytopenia (Hcc) Gastropathy Alcohol Use Disorder Gallstones Pud (Peptic Ulcer Disease) Gerd (Gastroesophageal Reflux Disease) Ptsd (Post-Traumatic Stress Disorder) Bilateral Hand Numbness Cervicalgia Chronic Neck Pain Sprain of Anterior Talofibular Ligament of Right Ankle Lateral Epicondylitis of Left Elbow Arthralgia of Right Acromioclavicular Joint Anxiety Non Compliance With Medical Treatment Abdominal Pain Alcoholic Cirrhosis of Liver Without Ascites (Hcc) History of Esophageal Varices Hypogonadism in Male Essential Hypertension Alcohol Abuse Alcohol Withdrawal Delirium (Hcc) Nicotine use disorder, F17.2 Severe Protein-Calorie Malnutrition (Hcc) Alcohol Use Disorder, Severe, Dependence (Hcc) Alcoholic Cirrhosis (Hcc) Acute Idiopathic Gout of Left Foot Patient follows up for chronic disease management. Reports that he recently went through detox and rehabilitation. Has been doing 12-step meetings. Has been completely sober from alcohol use. During psychotherapy for both PTSD and addiction. Reports that he is now from ex-. Was prescribed trazodone 100 mg instead of doxepin (previously prescribed) for management of insomnia after cessation of alcohol. Both medications have not been effective to help with sleep. Is looking for an increase in intramuscular testosterone dosing. Current Outpatient Medications Medication Sig traZODone (DESYREL) 100 mg tablet Take 100 mg by mouth daily at bedtime. testosterone cypionate (DEPO-TESTOSTERONE) 200 mg/mL injection Inject 1 mL intramuscularly every 2 weeks for 180 days. tiZANidine (ZANAFLEX) 4 mg tablet Take 1 tablet by mouth every 8 hours as needed. sildenafil (VIAGRA) 100 mg tablet Take 1 tablet by mouth as needed. 30-60 minutes before sexual intercourse magnesium oxide (MAG-OX) 400 mg (241.3 mg magnesium) tablet Take 1 tablet by mouth once daily. thiamine (VITAMIN B1) 100 mg tablet 1 tablet by ORAL/FEEDING TUBE route three times a day. lisinopril (ZESTRIL) 40 mg tablet Take 1 tablet by mouth once daily. venlafaxine ER (EFFEXOR XR) 37.5 mg 24 hr capsule Take 1 capsule by mouth daily with breakfast. pantoprazole DR (PROTONIX) 40 mg tablet Take 1 tablet by mouth two times a day before meals at 6 am and 4 pm. hydroCHLOROthiazide 12.5 mg capsule Take 1 capsule by mouth once daily. docusate sodium (COLACE) 100 mg capsule Take 1 capsule by mouth once daily. therapeutic multivitamin-minerals (THERA M PLUS, FERROUS FUMARAT,) 9 mg iron-400 mcg tablet Take 1 tablet by mouth once daily. doxepin capsule 25 mg Take 1 capsule by mouth daily at bedtime. (Patient not taking: Reported on 09/24/2023) Current Facility-Administered Medications Medication Dose Route Frequency testosterone cypionate 200 mg injection (DEPO-TESTOSTERONE) 200 mg INTRAMUSCULAR q 2 WEEKS PE: BP (!) 120/40 Pulse 80 Resp 18 Wt 90.7 kg (200 lb) BMI 28.70 kg/m? Gen: No acute distress, well developed Cardiovascular examination reveals regular rate and rhythm. No murmurs rubs or gallops. Respiratory examination clear to auscultation bilaterally Impression: (F51.02) Adjustment insomnia (primary encounter diagnosis) (E29.1) Hypogonadism in male Plan: Increase trazodone to 200 mg at bedtime. If this is not effective, we can trial gabapentin. Increase testosterone dosing to 200 Mg once weekly. Medical Decision Making: Problems: Moderate: 1+ chronic illnesses with change Risk: Moderate: Drug management Medical Decision Making Level: 4 - Moderate Return to clinic in 2 months with labs. Luke Jack MD Internal Medicine - Primary Care [facility] 09/24/2023 10:09 AM Allergies As of Date: 09/24/2023 Noted Allergy Reaction DILAUDID (HYDROMORPHONE (BULK)) 11/03/2014 1 - Mental Status Change 9 - Itching Date Reviewed: 09/24/2023 Reviewed by: Myla Mazariegos MA - Fully Assessed Reason for Visit: Recheck [92] Primary Visit Diagnosis:Adjustment insomnia [F51.02] Other Visit Diagnosis:Hypogonadism in male [E29.1] Order(s):testosterone cypionate (DEPO-TESTOSTERONE) 200 mg/mL injectionInject 1 mL intramuscularly one time a week for 180 days.Disp: 4 mLRfl: 5 TESTOSTERONE TOTAL [SQTESTO] Order #: [id number] FUTURE CBC + DIFF [SQCBCDIF] Order #: [id number] FUTURE LIPID PANEL BASIC [SQLIPB] Order #: 2 (more content not included)... Normal [facility] CBC panel Auto (Bld)on 09-13 Erythrocyte distribution width (RBC) [Ratio] 15.9 % High 11.5-15.0 [facility] Comment on above: Order Comment: Speci men Type: BLOOD SPECIMENOrdering Facility: [facility] Address: [address] [place] [address] Performed By: #### 5 8410-2 ####[facility] LWCLIA [id number] [place] [id number] [place] Hematocrit (Bld) [Volume fraction] 34.4 % Low 39.0-51.0 [facility] Comment on above: Order Comment: Speci men Type: BLOOD SPECIMENOrdering Facility: [facility] Address: [address] [place] [address] Performed By: #### 5 8410-2 ####[facility] LWCLIA [id number] [place] [id number] [place] Hemoglobin (Bld) [Mass/Vol] 11.4 g/dL Low 13.0-17.0 [facility] Comment on above: Order Comment: Speci men Type: BLOOD SPECIMENOrdering Facility: [facility] Address: [address] [place] [address] Performed By: #### 5 8410-2 ####[facility] LWCLIA [id number] [place] [address] [place] MCH (RBC) [Entitic mass] 29.6 pg Normal 26.0-34.0 [facility] Comment on above: Order Comment: Speci men Type: BLOOD SPECIMENOrdering Facility: [facility] Address: [address] [place] [address] Performed By: #### 5 8410-2 ####[facility] LWCLIA [id number] [address] MCHC (RBC) [Mass/Vol] 33.1 g/dL Normal 30.5-36.0 [facility] Comment on above: Order Comment: Speci men Type: BLOOD SPECIMENOrdering Facility: [facility] Address: [address] [place] [address] Performed By: #### 5 8410-2 ####[facility] SERVICESCLIA [id number] [address] MCV (RBC) [Entitic vol] 89.4 fL Normal 80.0-100.0 [facility] Comment on above: Order Comment: Speci men Type: BLOOD SPECIMENOrdering Facility: [facility] Address: [address] [place] [address] Performed By: #### 5 8410-2 ####[facility] LWIA [id number] [address] Nucleated RBC (Bld) [#/Vol] 10*3/uL Normal <0.01 [facility] Comment on above: Order Comment: Speci men Type: BLOOD SPECIMENOrdering Facility: [facility] Address: [address] [place] [address] Performed By: #### 5 8410-2 ####[facility] LWIA [id number] [address] Platelet mean volume (Bld) [Entitic vol] 10.5 fL Normal 9.0-12.7 [facility] Comment on above: Order Comment: Speci men Type: BLOOD SPECIMENOrdering Facility: [facility] Address: [address] [place] [address] Performed By: #### 5 8410-2 ####[facility] LWCLIA [id number] [place] [id number] [facility] Platelets (Bld) [#/Vol] 46 10*3/uL Low 150-400 [facility] Comment on above: Order Comment: Speci men Type: BLOOD SPECIMENOrdering Facility: [facility] Address: [address] [place] [address] Result Comment: no c lot detected Performed By: #### 5 8410-2 ####[facility] LWCLIA [id number] [place] [id number] [facility] RBC (Bld) [#/Vol] 3.85 10*6/uL Low 4.20-6.00 [facility] Comment on above: Order Comment: Speci men Type: BLOOD SPECIMENOrdering Facility: [facility] Address: [address] [place] [address] Performed By: #### 5 8410-2 ####[facility] LWCLIA [id number] [place] [id number] [facility] WBC (Bld) [#/Vol] 4.00 10*3/uL Normal 3.70-11.00 [facility] Comment on above: Order Comment: Speci men Type: BLOOD SPECIMENOrdering Facility: [facility] Address: [address] [place] [address] Performed By: #### 5 8410-2 ####[facility] LWCLIA [id number] [place] [id number] [facility] Comprehensive metabolic 2000 panelon 09-13-2023 Albumin [Mass/Vol] 4.4 g/dL Normal 3.9-4.9 [facility] Comment on above: Order Comment: Speci men Type: BLOOD SPECIMENOrdering Facility: [facility] Address: [address] [place] [address] Performed By: #### 2 4323-8 ####[facility] LWCLIA [id number] [place] [address] [place] ALP [Catalytic activity/Vol] 76 U/L Normal 38-113 [facility] Comment on above: Order Comment: Speci men Type: BLOOD SPECIMENOrdering Facility: [facility] Address: [address] [place] [address] Performed By: #### 2 4323-8 ####[facility] LWCLIA [id number] [place] [address] [place] ALT [Catalytic activity/Vol] 18 U/L Normal 10-54 [facility] Comment on above: Order Comment: Speci men Type: BLOOD SPECIMENOrdering Facility: [facility] Address: [address] [place] [address] Performed By: #### 2 4323-8 ####[facility] LWCLIA [id number] [address] STATES [facility] Anion gap [Moles/Vol] 10 mmol/L Normal 9-18 [facility] Comment on above: Order Comment: Speci men Type: BLOOD SPECIMENOrdering Facility: [facility] Address: [address] [place] [address] Performed By: #### 2 4323-8 ####[facility] LWCLIA [id number] [address] [place] AST [Catalytic activity/Vol] 29 U/L Normal 14-40 [facility] Comment on above: Order Comment: Speci men Type: BLOOD SPECIMENOrdering Facility: [facility] Address: [address] [place] [address] Performed By: #### 2 4323-8 ####[facility] LWCLIA [id number] [address] STATES OF [facility] Bilirubin [Mass/Vol] 0.4 mg/dL Normal 0.2-1.3 [facility] Comment on above: Order Comment: Speci men Type: BLOOD SPECIMENOrdering Facility: [facility] Address: [address] [place] [address] Performed By: #### 2 4323-8 ####[facility] LWCLIA [id number] [place] [address] [place] Calcium [Mass/Vol] 9.1 mg/dL Normal 8.5-10.2 [facility] Comment on above: Order Comment: Speci men Type: BLOOD SPECIMENOrdering Facility: [facility] Address: [address] [place] [address] Performed By: #### 2 4323-8 ####[facility] LWCLIA [id number] [place] [id number] [place] Chloride [Moles/Vol] 101 mmol/L Normal 97-105 [facility] Comment on above: Order Comment: Speci men Type: BLOOD SPECIMENOrdering Facility: [facility] Address: [address] [place] [address] Performed By: #### 2 4323-8 ####[facility] LWCLIA [id number] [place] [id number] [place] CO2 [Moles/Vol] 26 mmol/L Normal 22-30 [facility] Comment on above: Order Comment: Speci men Type: BLOOD SPECIMENOrdering Facility: [facility] Address: [address] [place] [address] Performed By: #### 2 4323-8 ####[facility] LWCLIA [id number] [place] [id number] [place] Creatinine [Mass/Vol] 1.32 mg/dL High 0.73-1.22 [facility] Comment on above: Order Comment: Speci men Type: BLOOD SPECIMENOrdering Facility: [facility] Address: [address] [place] [address] Performed By: #### 2 4323-8 ####[facility] LWCLIA [id number] [place] [address] [place] Creatinine and Glomerular filtration rate.predicted panel (S/P/Bld) 64 mL/min/1.73m??? Normal >=60 [facility] Comment on above: Order Comment: Berna champion Type: BLOOD SPECIMENOrdering Facility: [facility] Address: [address] [place] [address] Result Comment: Puja mated Glomerular Filtration Rate (eGFR) is calculated using the 2020 CKD-EPI creatinine equation. This equation utilizes serum creatinine, sex, and age as parameters. The creatinine assay has traceable calibration to isotope dilution-mass spectrometry. Refer to KDIGO guidelines for clinical interpretation. In patients with unstable renal function, e.g. those with acute kidney injury, the eGFR may not accurately reflect actual GFR. Performed By: #### 2 4323-8 ####[facility] LWCLIA [id number] [place] [address] [place] Glucose [Mass/Vol] 100 mg/dL High 74-99 [facility] Comment on above: Order Comment: Berna champion Type: BLOOD SPECIMENOrdering Facility: [facility] Address: [address] [place] [address] Result Comment: The [place] Diabetes Association (ADA) provides guidance for cutoff values for fasting glucose and random glucose. The ADA defines fasting as no caloric intake for at least 8 hours. Fasting plasma glucose results between 100 to 125 mg/dL indicate increased risk for diabetes (prediabetes). Fasting plasma glucose results greater than or equal to 126 mg/dL meet the criteria for diagnosis of diabetes. In the absence of unequivocal hyperglycemia, results should be confirmed by repeat testing. In a patient with classic symptoms of hyperglycemia or hyperglycemic crisis, random plasma glucose results greater than or equal to 200 mg/dL meet the criteria for diagnosis of diabetes. Reference: Standards of Medical Care in Diabetes 2016, [place] [employer]. Diabetes Care. 2016.39(Suppl 1). Performed By: #### 2 4323-8 ####[facility] LWCLIA [id number] [place] [address] [place] Potassium [Moles/Vol] 4.1 mmol/L Normal 3.7-5.1 [facility] Comment on above: Order Comment: Berna champion Type: BLOOD SPECIMENOrdering Facility: [facility] Address: [address] [place] [address] Performed By: #### 2 4323-8 ####[facility] LWCLIA [id number] [place] [id number] [place] Protein [Mass/Vol] 7.3 g/dL Normal 6.3-8.0 [facility] Comment on above: Order Comment: Speci men Type: BLOOD SPECIMENOrdering Facility: [facility] Address: [address] [place] [address] Performed By: #### 2 4323-8 ####[facility] LWCLIA [id number] [place] [address] [place] Sodium [Moles/Vol] 137 mmol/L Normal 136-144 [facility] Comment on above: Order Comment: Speci men Type: BLOOD SPECIMENOrdering Facility: [facility] Address: [address] [place] [address] Performed By: #### 2 4323-8 ####[facility] LWCLIA [id number] [place] [address] [place] Urea nitrogen [Mass/Vol] 20 mg/dL Normal 9-24 [facility] Comment on above: Order Comment: Speci men Type: BLOOD SPECIMENOrdering Facility: [facility] Address: [address] [place] [address] Performed By: #### 2 4323-8 ####[facility] LWCLIA [id number] [place] [id number] [place] Lipid 1996 panelon 4 Cholesterol [Mass/Vol] 112 mg/dL Normal <200 [facility] Comment on above: Order Comment: Speci men Type: BLOOD SPECIMENOrdering Facility: [facility] Address: [address] [place] [address] Result Comment: <200 mg/dL, Desirable 200-239 mg/dL, Borderline high >239 mg/dL, High Performed By: #### 2 986-8, 20540-4 ####[facility] LABCLIA [id number] [address] Cholesterol in HDL [Mass/Vol] 44 mg/dL Normal >39 [facility] Comment on above: Order Comment: Berna champion Type: BLOOD SPECIMENOrdering Facility: [facility] Address: [address] [place] [address] Result Comment: 40-5 9 mg/dL, Acceptable >59 mg/dL, High: Negative risk factor for coronary heart disease <40 mg/dL, Low: Positive risk factor for coronary heart disease Performed By: #### 2 986-8, 63200-9 ####[facility] LABCLIA [id number] [address] Cholesterol in LDL [Mass/Vol] 54 mg/dL Normal <100 [facility] Comment on above: Order Comment: Berna akira Type: BLOOD SPECIMENOrdering Facility: [facility] Address: [address] [place] [address] Result Comment: <100 mg/dL, Optimal 100-129 mg/dL, Near optimal/above optimal 130-159 mg/dL, Borderline high 160-189 mg/dL, High >189 mg/dL, Very high Secondary prevention optimal LDL Cholesterol levels are recommended to be < 70 mg/dL Performed By: #### 2 986-8, 53826-6 ####[facility] LABCLIA [id number] [address] Cholesterol in LDL/Cholesterol in HDL [Mass ratio] 1.23 {ratio} Normal <2.54 [facility] Comment on above: Order Comment: Berna akira Type: BLOOD SPECIMENOrdering Facility: [facility] Address: [address] [place] [address] Result Comment: Jaden castro: 1. National Cholesterol Education Program ATP III Guideline At-A-Glance Quick Desk Reference: National Heart, Lung, and Blood Zillah. National Institutes of Health. 2001: NIH Publication No. 01-3305. 2. An International Atherosclerosis Society position paper: global recommendations for the management of dyslipidemia: executive summary, Atherosclerosis. 2014: 232(2):410-413. Performed By: #### 2 986-8, 13703-7 ####[facility] LABCLIA [id number] [place] [address] [place] Cholesterol in VLDL [Mass/Vol] 14 mg/dL Normal <30 [facility] Comment on above: Order Comment: Speci men Type: BLOOD SPECIMENOrdering Facility: [facility] Address: [address] [place] [address] Performed By: #### 2 986-8, 19362-9 ####[facility] LABCLIA [id number] [place] [address] [place] Cholesterol non HDL [Mass/Vol] 68 mg/dL Normal <130 [facility] Comment on above: Order Comment: Speci men Type: BLOOD SPECIMENOrdering Facility: [facility] Address: [address] [place] [address] Result Comment: <130 mg/dL, Optimal 130-159 mg/dL, Near optimal/above optimal 160-189 mg/dL, Borderline high 190-219 mg/dL, High >219 mg/dL, Very high Secondary prevention optimal non HDL Cholesterol levels are recommended to be <100 mg/dL Performed By: #### 2 986-8, 13466-3 ####[facility] LABCLIA [id number] [place] [address] [place] Cholesterol.total/ Cholesterol in HDL [Mass ratio] 2.55 {ratio} Normal <5.10 [facility] Comment on above: Order Comment: Speci men Type: BLOOD SPECIMENOrdering Facility: [facility] Address: [address] [place] [address] Performed By: #### 2 986-8, 50913-3 ####[facility] LABCLIA [id number] [place] [address] [place] FASTING TIME 7 hrs Normal [facility] Comment on above: Order Comment: Speci men Type: BLOOD SPECIMENOrdering Facility: [facility] Address: [address] [place] [address] Result Comment: PT H EATEN AT 7AM Performed By: #### 2 986-8, 41216-9 ####[facility] LABIA [id number] [place] [address] [place] Triglyceride [Mass/Vol] 69 mg/dL Normal <150 [facility] Comment on above: Order Comment: Speci men Type: BLOOD SPECIMENOrdering Facility: [facility] Address: [address] [place] [address] Result Comment: <150 mg/dL, Normal 150-199 mg/dL, Borderline high 200-499 mg/dL, High >499 mg/dL, Very high Performed By: #### 2 986-8, 55192-6 ####[facility] LABIA [id number] [place] [address] [place] PSA/PROSTSPECAG SCRNon 09-13 Prostate specific Ag [Mass/Vol] 0.77 ng/mL Normal <2.60 [facility] Comment on above: Order Comment: Speci men Type: BLOOD SPECIMENOrdering Facility: [facility] Address: [address] [place] [address] Result Comment: Tota l PSA test methodology used is the Electrochemiluminescence Immunoassay by [employer]. Total PSA values by differing methodologies cannot be interchanged. Performed By: #### P SAS1 ####[facility] [id number] [place] [address] [place] Testost SerPl-mCncon 024 Testosterone [Mass/Vol] 253 ng/dL Normal 193-824 [facility] Comment on above: Order Comment: Speci men Type: BLOOD SPECIMENOrdering Facility: [facility] Address: [address] [place] [address] Result Comment: A te stosterone level in the 193-320 ng/dL range with associated clinical symptoms is considered low and may indicate hypogonadism (from NEJM 2010 363:123-135). Results >320 ng/dL are considered normal. Performed By: #### 2 986-8, 70370-2 ####[facility] MARIA EUGENIA [id number] [place] [id number] [place] [facility] 09-09-2023 CNPN Telephone (INTLKB) GALINDO SNOW ([id number]) 1970 M Date Time Provider Department 09/09/23 LUKE JACK INTKB During your visit today, we recorded the following information about you: Allergies As of Date: 09/09/2023 Noted Allergy Reaction DILAUDID (HYDROMORPHONE (BULK)) 11/03/2014 1 - Mental Status Change 9 - Itching Date Reviewed: 06/03/2023 Reviewed by: Myla Mazariegos MA - Fully Assessed Prescriptions as of 10/08/2023 - testosterone cypionate (DEPO-TESTOSTERONE) 200 mg/mL injection Inject 1 mL intramuscularly one time a week for 180 days. - traZODone (DESYREL) 100 mg tablet Take 2 tablets by mouth daily at bedtime. - tiZANidine (ZANAFLEX) 4 mg tablet Take 1 tablet by mouth every 8 hours as needed. - sildenafil (VIAGRA) 100 mg tablet Take 1 tablet by mouth as needed. 30-60 minutes before sexual intercourse - magnesium oxide (MAG-OX) 400 mg (241.3 mg magnesium) tablet Take 1 tablet by mouth once daily. - thiamine (VITAMIN B1) 100 mg tablet 1 tablet by ORAL/FEEDING TUBE route three times a day. - lisinopril (ZESTRIL) 40 mg tablet Take 1 tablet by mouth once daily. - venlafaxine ER (EFFEXOR XR) 37.5 mg 24 hr capsule Take 1 capsule by mouth daily with breakfast. - pantoprazole DR (PROTONIX) 40 mg tablet Take 1 tablet by mouth two times a day before meals at 6 am and 4 pm. - hydroCHLOROthiazide 12.5 mg capsule Take 1 capsule by mouth once daily. - docusate sodium (COLACE) 100 mg capsule Take 1 capsule by mouth once daily. - therapeutic multivitamin-minerals (THERA M PLUS, FERROUS FUMARAT,) 9 mg iron-400 mcg tablet Take 1 tablet by mouth once daily. Facility-Administered Medications as of 10/08/2023 - testosterone cypionate 200 mg injection (DEPO-TESTOSTERONE) Meds Comments as of 12/30/2019: Pt stopped taking medications about 2 weeks ago- restarted 12/27 Problem List As Of Date 09/09/2023 Noted Resolved Thrombocytopenia (HCC) [D69.6] 07/01/2013 Gastropathy [K31.9] Alcohol use disorder [F10.90] Gallstones [K80.20] PUD (peptic ulcer disease) [K27.9] GERD (gastroesophageal reflux disease) [K21.9] 11/03/2014 PTSD (post-traumatic stress disorder) [F43.10] 11/03/2014 Bilateral hand numbness [R20.0] 10/22/2016 Cervicalgia [M54.2] 10/22/2016 Chronic neck pain [M54.2, G89.29] 10/22/2016 Sprain of anterior talofibular ligament of righ*07/07/2017 Lateral epicondylitis of left elbow [M77.12] 11/11/2017 Arthralgia of right acromioclavicular joint [M2*04/21/2018 Anxiety [F41.9] 06/14/2018 GI bleed [K92.2] 12/30/2019 01/01/2020 Non compliance with medical treatment [Z91.199] 12/30/2019 Abdominal pain [R10.9] 08/29/2020 Alcoholic cirrhosis of liver without ascites (H*03/01/2022 History of esophageal varices [Z87.19] 03/01/2022 Hypogonadism in male [E29.1] 05/09/2022 Essential hypertension [I10] 08/10/2022 Acute upper GI bleeding [K92.2] 03/30/2023 04/04/2023 Bleeding esophageal varices (HCC) [I85.01] 03/31/2023 04/04/2023 Hematemesis with nausea [K92.0] 03/31/2023 04/11/2023 Alcohol abuse [F10.10] 03/31/2023 Alcohol withdrawal delirium (HCC) [F10.931] 03/31/2023 Upper GI bleed [K92.2] 04/10/2023 04/11/2023 LLQ abdominal pain [R10.32] 04/10/2023 04/11/2023 Hematemesis without nausea [K92.0] 04/10/2023 04/11/2023 Nicotine use disorder, F17.2 [F17.200] 04/10/2023 Acute upper GI bleed [K92.2] 05/02/2023 05/03/2023 Severe protein-calorie malnutrition (HCC) [E43] 05/03/2023 GI bleeding [K92.2] 05/03/2023 05/04/2023 Alcohol use disorder, severe, dependence (HCC) *05/04/2023 Hematemesis [K92.0] 05/06/2023 05/10/2023 Withdrawal symptoms, alcohol, with delirium (HC*05/06/2023 05/10/2023 Acute encephalopathy [G93.40] 05/06/2023 05/10/2023 Alcoholic cirrhosis (HCC) [K70.30] 05/06/2023 Alcohol withdrawal syndrome with complication (*05/07/2023 05/10/2023 Delirium [R41.0] 05/08/2023 05/10/2023 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] 05/10/2023 Encounter Status:Closed by MYLA MAZARIEGOS on 10/08/23 [facility] XR CERV 6V AP/LAT/FLX/EXT/OB Hussein 09-07-2023 XR CERV 6V AP/LAT/FLX/EXT/OBL * * *Final Report* * * DATE OF EXAM: Sep 07 2023 2:19PM LFX [id number] - XR CERV 6V AP/LAT/FLX/EXT/OBL / PROCEDURE REASON: multiple diagnoses * * * * Physician Interpretation * * * * EXAM TITLE: XR CERV 6V AP/LAT/FLX/EXT/OBL EXAM DATE/TIME: 09/07/2023 2:19 PM COMPARISON: X-ray cervical spine on 01/25/2021 CLINICAL INDICATION/HISTORY: Spinal stenosis. TECHNIQUE: AP, lateral and oblique views of the cervical spine are presented. FINDINGS: No fractures or subluxations are noted. The disc spaces are well preserved. C1 arcuate foramen is demonstrated There is mild osteophyte formation. Ossification of the anterior longitudinal ligament is noted. The neural foramina are patent. The prevertebral soft tissues are normal. IMPRESSION: Cervical spine mild degenerative changes. C1 arcuate foramen. Sock Lining Examiner: PSCB Transcribe Date/Time: Sep 09 2023 8:14A Dictated by : ANJU CRAWFORD MD This examination was interpreted and the report reviewed and electronically signed by: ANJU CRAWFORD MD on Sep 09 2023 8:17AM EST [id number] Normal [facility] Basic Metabolic Profon 08-04 Anion gap [Moles/Vol] 6 mmol/L Low 7-16 [facility] Comment on above: Performed By: #### L ACTIC, CBC, BMP, TROPI, PLCON #### [address] [address] [employer] Machine: Cristiano Morataya MD Calcium [Mass/Vol] 8.5 mg/dL Low 8.6-10.2 [facility] Comment on above: Performed By: #### L ACTIC, CBC, BMP, TROPI, PLCON #### [address] [address] [employer]: Cristiano Morataya MD Chloride [Moles/Vol] 100 mmol/L Normal 98-107 [facility] Comment on above: Performed By: #### L ACTIC, CBC, BMP, TROPI, PLCON #### [address] [address] [employer]: Cristiano Morataya MD CO2 [Moles/Vol] 24 mmol/L Normal 22-29 [facility] Comment on above: Performed By: #### L ACTIC, CBC, BMP, TROPI, PLCON #### [place] [id number] [place], [place] [id number] [employer] Machine: Cristiano Morataya MD Creatinine [Mass/Vol] 1.6 mg/dL High 0.70-1.20 [facility] Comment on above: Performed By: #### L ACTIC, CBC, BMP, TROPI, PLCON #### [address] [address] ( [employer] Machine: Cristiano Morataya MD GFR/1.73 sq M.predicted among non-blacks MDRD (S/P/Bld) [Vol rate/Area] 49 mL/min/{1.73_m2} Low >60 [facility] Comment on above: Result Comment: These results are not intended for use in patients <18 years of age. eGFR results are calculated without a race factor using the 2020 CKD-EPI equation. Careful clinical correlation is recommended, particularly when comparing to results calculated using previous equations. The CKD-EPI equation is less accurate in patients with extremes of muscle mass, extra-renal metabolism of creatine, excessive creatine ingestion, or following therapy that affects renal tubular secretion. Performed By: #### L ACTIC, CBC, BMP, TROPI, PLCON #### [address] [address] [employer]: Cristiano Morataya MD Glucose [Mass/Vol] 144 mg/dL High 74-99 [facility] Comment on above: Performed By: #### L ACTIC, CBC, BMP, TROPI, PLCON #### [address] [id number] [employer]: Cristiano Morataya MD Potassium [Moles/Vol] 4.0 mmol/L Normal 3.5-5.0 [facility] Comment on above: Performed By: #### L ACTIC, CBC, BMP, TROPI, PLCON #### [address] [address] [employer]: Cristiano Morataya MD Sodium [Moles/Vol] 130 mmol/L Low 132-146 [facility] Comment on above: Performed By: #### L ACTIC, CBC, BMP, TROPI, PLCON #### [facility] [address] [place] [address] [employer]umber [employer] Machine: Cristiano Morataya MD Urea nitrogen [Mass/Vol] 9 mg/dL Normal 6-20 [facility] Comment on above: Performed By: #### L ACTIC, CBC, BMP, TROPI, PLCON #### [facility] [address] [place] [address] [employer]umber [employer] Machine: Cristiano Morataya MD Basic metabolic panel 12-3 Anion gap [Moles/Vol] 6 mmol/L Low 7 - 16 mmol/L [employer] Calcium [Mass/Vol] 8.5 mg/dL Low 8.6 - 10. 2 mg/dL [employer] Chloride [Moles/Vol] 100 mmol/L 98 - 107 mmol/L [facility] CO2 [Moles/Vol] 24 mmol/L 22 - 29 mmol/L [employer] Creatinine [Mass/Vol] 1.6 mg/dL High 0.70 - 1.20 mg/dL [employer] GFR/1.73 sq M.predicted MDRD (S/P/Bld) [Vol rate/Area] 49 mL/min/{1.73_m2} Low - PINF [facility] Comment on above: These results are not intended for use in patients <18 years of age. eGFR results are calculated without a race factor using the 2020 CKD-EPI equation. Careful clinical correlation is recommended, particularly when comparing to results calculated using previous equations. The CKD-EPI equation is less accurate in patients with extremes of muscle mass, extra-renal metabolism of creatine, excessive creatine ingestion, or following therapy that affects renal tubular secretion. Glucose [Mass/Vol] 144 mg/dL High 74 - 99 mg/dL [employer] Interpretation and review of laboratory results Abnormal [employer] Potassium [Moles/Vol] 4.0 mmol/L 3.5 - 5.0 mmol/L [facility] Sodium [Moles/Vol] 130 mmol/L Low 132 - 146 mmol/L [facility] Urea nitrogen [Mass/Vol] 9 mg/dL 6 - 20 mg/dL [facility] CBCon 08-04-2023 Erythrocyte distribution width (RBC) [Ratio] 16.0 % High 11.5-15.0 [facility] Comment on above: Performed By: #### L ACTIC, CBC, BMP, TROPI, PLCON #### [address] [address] [employer] Machine: Cristiano Morataya MD Hematocrit (Bld) [Volume fraction] 32.9 % Low 37.0-54.0 [facility] Comment on above: Performed By: #### L ACTIC, CBC, BMP, TROPI, PLCON #### [address] [address] [employer]: Cristiano Morataya MD Hemoglobin (Bld) [Mass/Vol] 10.8 g/dL Low 12.5-16.5 [facility] Comment on above: Performed By: #### L ACTIC, CBC, BMP, TROPI, PLCON #### [address] [address] [employer] Machine: Cristiano Morataya MD MCH (RBC) [Entitic mass] 29.5 pg Normal 26.0-35.0 [facility] Comment on above: Performed By: #### L ACTIC, CBC, BMP, TROPI, PLCON #### [address] [address] [employer]: Cristiano Morataya MD MCHC (RBC) [Mass/Vol] 32.8 g/dL Normal 32.0-34.5 [facility] Comment on above: Performed By: #### L ACTIC, CBC, BMP, TROPI, PLCON #### [address] [address] [employer]: Cristiano Morataya MD MCV (RBC) [Entitic vol] 89.9 fL Normal 80.0-99.9 [facility] Comment on above: Performed By: #### L ACTIC, CBC, BMP, TROPI, PLCON #### [id number] [place] [address] [employer] Machine: Cristiano Morataya MD Platelet mean volume (Bld) [Entitic vol] 10.0 fL Normal 7.0-12.0 [facility] Comment on above: Performed By: #### L ACTIC, CBC, BMP, TROPI, PLCON #### [facility] [address] [place] [address] [employer] Machine: Cristiano Morataya MD Platelets (Bld) [#/Vol] 75 10*3/uL Low 130-450 [facility] Comment on above: Performed By: #### L ACTIC, CBC, BMP, TROPI, PLCON #### [address] [address] [employer] Machine: Cristiano Morataya MD RBC (Bld) [#/Vol] 3.66 10*6/uL Low 3.80-5.80 [facility] Comment on above: Performed By: #### L ACTIC, CBC, BMP, TROPI, PLCON #### [facility] [address] [place] [address] [employer]: Cristiano Morataya MD WBC (Bld) [#/Vol] 3.3 10*3/uL Low 4.5-11.5 [facility] Comment on above: Performed By: #### L ACTIC, CBC, BMP, TROPI, PLCON #### [facility] [address] [place] [address] [employer] Machine: Cristiano Morataya MD Erythrocyte distribution width (RBC) [Ratio] 16.0 % High 11.5 - 15.0 % [facility] Hematocrit (Bld) [Volume fraction] 32.9 % Low 37.0 - 54.0 % [facility] Hemoglobin (Bld) [Mass/Vol] 10.8 g/dL Low 12.5 - 16.5 g/dL [employer] Interpretation and review of laboratory results Abnormal [facility] MCH (RBC) [Entitic mass] 29.5 pg 26.0 - 35.0 pg [facility] MCHC (RBC) [Mass/Vol] 32.8 g/dL 32.0 - 34.5 g/dL [employer] [facility] MCV (RBC) [Entitic vol] 89.9 fL 80.0 - 99.9 fL [employer] Platelet mean volume (Bld) [Entitic vol] 10.0 fL 7.0 - 12.0 fL [facility] Platelets (Bld) [#/Vol] 75 10*3/uL Low [employer] RBC (Bld) [#/Vol] 3.66 10*6/uL Low 3.80 - 5.8 0 m/uL [employer] WBC other (Bld) [#/Vol] 3.3 Low [email or web address] EKG 12 LeadOrdered By: Dany Siddiqui on 08-04-2023 Atrial Rate 56 BPM [employer] Work Phone: P [place] 11 degrees [employer] Work Phone: P-R Interval 148 ms [employer] Work Phone: Q-T Interval 480 ms [employer] Work Phone: QRS Duration 96 ms [employer] Work Phone: QTc Calculation (Bazett) 463 ms [employer] Work Phone: R [place] 88 degrees [employer] Work Phone: T [place] 26 degrees [employer] Work Phone: Ventricular Rate 56 BPM [facility] [employer] Work Phone: [employer] Work Phone: EKG 12 Leadon 08-04-2023 Sinus bradycardia Otherwise normal ECG No previous ECGs available Confirmed by Dany Siddiqui ([id number]) on 08/04/2023 12:59:27 PM [facility] M[facility] Dany Siddiqui MD - 08/04/2023 Sinus bradycardia Otherwise normal ECG No previous ECGs available Confirmed by Dany Siddiqui ([id number]) on 08/04/2023 12:59:27 PM [facility] Lactic Acidon 08-04-2023 Lactate [Moles/Vol] 1.7 mmol/L Normal 0.5-2.2 [facility] Comment on above: Performed By: #### L ACTIC, CBC, BMP, TROPI, PLCON #### [facility] [address] [place], [place] [id number] [employer] Machine: Cristiano Morataya MD Lactate (BldV) [Moles/Vol] 1.7 mmol/L 0.5 - 2.2 mmol/L [facility] No Panel Informationon 08-04 [facility] Platelet Confirmationon 07-07 Platelet Confirmation CONFIRMED Normal [facility] Comment on above: Performed By: #### L ACTIC, CBC, BMP, TROPI, PLCON #### [address] [place], [place] [id number] [employer] Machine: Cristiano Morataya MD Platelet Confirmation CONFIRMED [facility] Troponinon 08-04-2023 Troponin, High Sens 9 ng/L Normal 0-11 [facility] Comment on above: Result Comment: High Sensitivity Troponin values cannot be compared with other Troponin methodologies. Patients with high levels of Biotin oral intake (i.e >5mg/day) may have falsely decreased Troponin levels. Samples collected within 8 hours of biotin intake may require additional information for diagnosis. Performed By: #### L ACTIC, CBC, BMP, TROPI, PLCON #### [facility] [address] [place], [place] [id number] [employer]: Cristiano Morataya MD Troponin I.cardiac High sensitivity method [Mass/Vol] 9 ng/L 0 - 11 ng/L [facility] Comment on above: High Sensitivity Troponin values cannot be compared with other Troponin methodologies. Patients with high levels of Biotin oral intake (i.e >5mg/day) may have falsely decreased Troponin levels. Samples collected within 8 hours of biotin intake may require additional information for diagnosis. [facility] 06-25-2023 CNPN Telephone (GASTA5) GALINDO SNOW ([id number]) 1970 M Date Time Provider Department 06/25/23 MYLA MONTANO ([facility]) GASTA5 During your visit today, we recorded the following information about you: Myla Montano 06/25/2023 2:05 PM Signed Called [facility] to remind them of an appointment with Dr. Lyles on 06/26/23. Spoke with patient. Appointment confirmed. Allergies As of Date: 06/25/2023 Noted Allergy Reaction DILAUDID (HYDROMORPHONE (BULK)) 11/03/2014 1 - Mental Status Change 9 - Itching Date Reviewed: 06/03/2023 Reviewed by: Myla Mazariegos MA - Fully Assessed Reason for Visit: Appointment [186] Prescriptions as of 06/25/2023 - doxepin capsule 25 mg Take 1 capsule by mouth daily at bedtime. - sildenafil (VIAGRA) 100 mg tablet Take 1 tablet by mouth as needed. 30-60 minutes before sexual intercourse - magnesium oxide (MAG-OX) 400 mg (241.3 mg magnesium) tablet Take 1 tablet by mouth once daily. - thiamine (VITAMIN B1) 100 mg tablet 1 tablet by ORAL/FEEDING TUBE route three times a day. - lisinopril (ZESTRIL) 40 mg tablet Take 1 tablet by mouth once daily. - venlafaxine ER (EFFEXOR XR) 37.5 mg 24 hr capsule Take 1 capsule by mouth daily with breakfast. - pantoprazole DR (PROTONIX) 40 mg tablet Take 1 tablet by mouth two times a day before meals at 6 am and 4 pm. - hydroCHLOROthiazide 12.5 mg capsule Take 1 capsule by mouth once daily. - testosterone cypionate (DEPO-TESTOSTERONE) 200 mg/mL injection Inject 1 mL intramuscularly every 2 weeks for 180 days. - docusate sodium (COLACE) 100 mg capsule Take 1 capsule by mouth once daily. - therapeutic multivitamin-minerals (THERA M PLUS, FERROUS FUMARAT,) 9 mg iron-400 mcg tablet Take 1 tablet by mouth once daily. Facility-Administered Medications as of 06/25/2023 - testosterone cypionate 200 mg injection (DEPO-TESTOSTERONE) Meds Comments as of 12/30/2019: Pt stopped taking medications about 2 weeks ago- restarted 12/27 Problem List As Of Date 06/25/2023 Noted Resolved Thrombocytopenia (HCC) [D69.6] 07/01/2013 Gastropathy [K31.9] Alcohol use disorder [F10.90] Gallstones [K80.20] PUD (peptic ulcer disease) [K27.9] GERD (gastroesophageal reflux disease) [K21.9] 11/03/2014 PTSD (post-traumatic stress disorder) [F43.10] 11/03/2014 Bilateral hand numbness [R20.0] 10/22/2016 Cervicalgia [M54.2] 10/22/2016 Chronic neck pain [M54.2, G89.29] 10/22/2016 Sprain of anterior talofibular ligament of righ*07/07/2017 Lateral epicondylitis of left elbow [M77.12] 11/11/2017 Arthralgia of right acromioclavicular joint [M2*04/21/2018 Anxiety [F41.9] 06/14/2018 GI bleed [K92.2] 12/30/2019 01/01/2020 Non compliance with medical treatment [Z91.199] 12/30/2019 Abdominal pain [R10.9] 08/29/2020 Alcoholic cirrhosis of liver without ascites (H*03/01/2022 History of esophageal varices [Z87.19] 03/01/2022 Hypogonadism in male [E29.1] 05/09/2022 Essential hypertension [I10] 08/10/2022 Acute upper GI bleeding [K92.2] 03/30/2023 04/04/2023 Bleeding esophageal varices (HCC) [I85.01] 03/31/2023 04/04/2023 Hematemesis with nausea [K92.0] 03/31/2023 04/11/2023 Alcohol abuse [F10.10] 03/31/2023 Alcohol withdrawal delirium (HCC) [F10.931] 03/31/2023 Upper GI bleed [K92.2] 04/10/2023 04/11/2023 LLQ abdominal pain [R10.32] 04/10/2023 04/11/2023 Hematemesis without nausea [K92.0] 04/10/2023 04/11/2023 Nicotine use disorder, F17.2 [F17.200] 04/10/2023 Acute upper GI bleed [K92.2] 05/02/2023 05/03/2023 Severe protein-calorie malnutrition (HCC) [E43] 05/03/2023 GI bleeding [K92.2] 05/03/2023 05/04/2023 Alcohol use disorder, severe, dependence (HCC) *05/04/2023 Hematemesis [K92.0] 05/06/2023 05/10/2023 Withdrawal symptoms, alcohol, with delirium (HC*05/06/2023 05/10/2023 Acute encephalopathy [G93.40] 05/06/2023 05/10/2023 Alcoholic cirrhosis (HCC) [K70.30] 05/06/2023 Alcohol withdrawal syndrome with complication (*05/07/2023 05/10/2023 Delirium [R41.0] 05/08/2023 05/10/2023 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] 05/10/2023 Encounter Status:Closed by MYLA MONTANO on 06/25/23 Marita [facility] Geremias 06-03-2023 CNOV Office Visit (INTLKB ) GALINDO SNOW ([id number]) 1970 M Date Time Provider Department 06/03/23 1:00 PM TERESE JACK INTLKB During your visit today, we recorded the following information about you: Pulse Respiration Blood pressure Weight 97/minute 18/minute 140/60 78.5 kg Terese Jack MD 06/03/2023 5:10 PM Signed Outpatient Internal Medicine - [facility] Patient name: Galindo Snow Medical Record: [id number] cc: Patient presents with: Follow Up: JANETH Sleep Problem 52 year old male with ACTIVE PROBLEM LIST Thrombocytopenia (Hcc) Gastropathy Alcohol Use Disorder Gallstones Pud (Peptic Ulcer Disease) Gerd (Gastroesophageal Reflux Disease) Ptsd (Post-Traumatic Stress Disorder) Bilateral Hand Numbness Cervicalgia Chronic Neck Pain Sprain of Anterior Talofibular Ligament of Right Ankle Lateral Epicondylitis of Left Elbow Arthralgia of Right Acromioclavicular Joint Anxiety Non Compliance With Medical Treatment Abdominal Pain Alcoholic Cirrhosis of Liver Without Ascites (Hcc) History of Esophageal Varices Hypogonadism in Male Essential Hypertension Alcohol Abuse Alcohol Withdrawal Delirium (Hcc) Nicotine use disorder, F17.2 Severe Protein-Calorie Malnutrition (Hcc) Alcohol Use Disorder, Severe, Dependence (Hcc) Alcoholic Cirrhosis (Hcc) Acute Idiopathic Gout of Left Foot Patient comes in for follow-up after hospitalization. Reports that his biggest issue over the past few months has been an inability to sleep at night. Reports that he does feel tired but ends up staring at the ceiling without being able to sleep at night. Has been prescribed doxepin 10 mg which he has been taking regularly and this does not help at all. Has not ever tried out any increased dose. Reports that alcohol consumption does not ever help out with insomnia either. Requesting refill on Viagra. Otherwise feels well. Reports that he was told to follow-up over here for hypertension management as his blood pressure readings were excessively high in the hospitalization. Current Outpatient Medications Medication Sig lisinopril (ZESTRIL) 40 mg tablet Take 1 tablet by mouth once daily. doxepin capsule 10 mg Take 1 capsule by mouth daily at bedtime. venlafaxine ER (EFFEXOR XR) 37.5 mg 24 hr capsule Take 1 capsule by mouth daily with breakfast. pantoprazole DR (PROTONIX) 40 mg tablet Take 1 tablet by mouth two times a day before meals at 6 am and 4 pm. hydroCHLOROthiazide 12.5 mg capsule Take 1 capsule by mouth once daily. testosterone cypionate (DEPO-TESTOSTERONE) 200 mg/mL injection Inject 1 mL intramuscularly every 2 weeks for 180 days. magnesium oxide (MAG-OX) 400 mg (241.3 mg magnesium) tablet Take 1 tablet by mouth once daily. thiamine (VITAMIN B1) 100 mg tablet 1 tablet by ORAL/FEEDING TUBE route three times daily. docusate sodium (COLACE) 100 mg capsule Take 1 capsule by mouth once daily. therapeutic multivitamin-minerals (THERA M PLUS, FERROUS FUMARAT,) 9 mg iron-400 mcg tablet Take 1 tablet by mouth once daily. sildenafil (VIAGRA) 100 mg tablet Take 1 tablet by mouth as needed. 30-60 minutes before sexual intercourse Current Facility-Administered Medications Medication Dose Route Frequency testosterone cypionate 200 mg injection (DEPO-TESTOSTERONE) 200 mg INTRAMUSCULAR q 2 WEEKS PE: BP 140/60 Pulse 97 Resp 18 Wt 78.5 kg (173 lb) BMI 24.82 kg/m? Gen: No acute distress, well developed Cardiovascular examination reveals regular rate and rhythm. No murmurs rubs or gallops. Respiratory examination clear to auscultation bilaterally Impression: (F51.01) Primary insomnia (primary encounter diagnosis) (N52.2) Drug-induced erectile dysfunction (I10) Essential hypertension Plan: All questions were answered regarding the hospitalization. Shared this made to increase doxepin to 25 mg at bedtime. Advised to trial this for at least 2 weeks, if this is still not working out, we can increase the dose further. Hypertension is well controlled. Continue current Rx as listed above. Medical Decision Making: Problems: Moderate: 1+ chronic illnesses with change Data: Unique source(s) for external note(s) reviewed: 1 Unique test result(s) reviewed: 2 Risk: Moderate: Drug management Medical Decision Making Level: 4 - Moderate Luke Jack MD Internal Medicine - Primary Care [facility] 06/03/2023 1:16 PM Allergies As of Date: 06/03/2023 Noted Allergy Reaction DILAUDID (HYDROMORPHONE (BULK)) 11/03/2014 1 - Mental Status Change 9 - Itching Date Reviewed: 06/03/2023 Reviewed by: Myla Mazariegos MA - Fully Assessed Reason for Visit: Follow Up [171] Cmt: JANETH Sleep Problem [100] Primary Visit Diagnosis:Primary insomnia [F51.01] Other Visit Diagnoses:Drug-induced erectile dysfunction [N52.2] Essential hypertension [I10] Order(s):doxep (more content not included)... Normal [facility] CNNURSEon 05-30-2023 CNNURSE Nurse Visit (INTLKB) GALINDO SONW ([id number]) 1970 M Date Time Provider Department [facility]/30/23 10:[facility] During your visit today, we recorded the following information about you: Ashley Abreu RN 05/30/2023 10:51 AM Signed Patient has been identified by name and date of : YES Pt came in today for his testosterone injection 200 mg (1ml) give in left buttock. Pt tolerated injection well without incident. Allergies As of Date: 05/30/2023 Noted Allergy Reaction DILAUDID (HYDROMORPHONE (BULK)) 11/03/2014 1 - Mental Status Change 9 - Itching Date Reviewed: 05/30/2023 Reviewed by: Ashley Abreu RN - Fully Assessed Reason for Visit: Imm/Inj [58] Cmt: Testosterone Primary Visit Diagnosis:Low testosterone in male [R79.89] Prescriptions as of 05/30/2023 - lisinopril (ZESTRIL) 40 mg tablet Take 1 tablet by mouth once daily. - doxepin capsule 10 mg Take 1 capsule by mouth daily at bedtime. - venlafaxine ER (EFFEXOR XR) 37.5 mg 24 hr capsule Take 1 capsule by mouth daily with breakfast. - pantoprazole DR (PROTONIX) 40 mg tablet Take 1 tablet by mouth two times a day before meals at 6 am and 4 pm. - hydroCHLOROthiazide 12.5 mg capsule Take 1 capsule by mouth once daily. - testosterone cypionate (DEPO-TESTOSTERONE) 200 mg/mL injection Inject 1 mL intramuscularly every 2 weeks for 180 days. - sildenafil (VIAGRA) 100 mg tablet Take 1 tablet by mouth as needed. 30-60 minutes before sexual intercourse - magnesium oxide (MAG-OX) 400 mg (241.3 mg magnesium) tablet Take 1 tablet by mouth once daily. - thiamine (VITAMIN B1) 100 mg tablet 1 tablet by ORAL/FEEDING TUBE route three times daily. - docusate sodium (COLACE) 100 mg capsule Take 1 capsule by mouth once daily. - therapeutic multivitamin-minerals (THERA M PLUS, FERROUS FUMARAT,) 9 mg iron-400 mcg tablet Take 1 tablet by mouth once daily. Facility-Administered Medications as of 05/30/2023 - testosterone cypionate 200 mg injection (DEPO-TESTOSTERONE) Meds Comments as of 12/30/2019: Pt stopped taking medications about 2 weeks ago- restarted 12/27 Problem List As Of Date 05/30/2023 Noted Resolved Thrombocytopenia (HCC) [D69.6] 07/01/2013 Gastropathy [K31.9] Alcohol use disorder [F10.90] Gallstones [K80.20] PUD (peptic ulcer disease) [K27.9] GERD (gastroesophageal reflux disease) [K21.9] 11/03/2014 PTSD (post-traumatic stress disorder) [F43.10] 11/03/2014 Bilateral hand numbness [R20.0] 10/22/2016 Cervicalgia [M54.2] 10/22/2016 Chronic neck pain [M54.2, G89.29] 10/22/2016 Sprain of anterior talofibular ligament of righ*07/07/2017 Lateral epicondylitis of left elbow [M77.12] 11/11/2017 Arthralgia of right acromioclavicular joint [M2*04/21/2018 Anxiety [F41.9] 06/14/2018 GI bleed [K92.2] 12/30/2019 01/01/2020 Non compliance with medical treatment [Z91.199] 12/30/2019 Abdominal pain [R10.9] 08/29/2020 Alcoholic cirrhosis of liver without ascites (H*03/01/2022 History of esophageal varices [Z87.19] 03/01/2022 Hypogonadism in male [E29.1] 05/09/2022 Essential hypertension [I10] 08/10/2022 Acute upper GI bleeding [K92.2] 03/30/2023 04/04/2023 Bleeding esophageal varices (HCC) [I85.01] 03/31/2023 04/04/2023 Hematemesis with nausea [K92.0] 03/31/2023 04/11/2023 Alcohol abuse [F10.10] 03/31/2023 Alcohol withdrawal delirium (HCC) [F10.931] 03/31/2023 Upper GI bleed [K92.2] 04/10/2023 04/11/2023 LLQ abdominal pain [R10.32] 04/10/2023 04/11/2023 Hematemesis without nausea [K92.0] 04/10/2023 04/11/2023 Nicotine use disorder, F17.2 [F17.200] 04/10/2023 Acute upper GI bleed [K92.2] 05/02/2023 05/03/2023 Severe protein-calorie malnutrition (HCC) [E43] 05/03/2023 GI bleeding [K92.2] 05/03/2023 05/04/2023 Alcohol use disorder, severe, dependence (HCC) *05/04/2023 Hematemesis [K92.0] 05/06/2023 05/10/2023 Withdrawal symptoms, alcohol, with delirium (HC*05/06/2023 05/10/2023 Acute encephalopathy [G93.40] 05/06/2023 05/10/2023 Alcoholic cirrhosis (HCC) [K70.30] 05/06/2023 Alcohol withdrawal syndrome with complication (*05/07/2023 05/10/2023 Delirium [R41.0] 05/08/2023 05/10/2023 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 Pt tolerated injection well without incident. Encounter Status:Closed by ASHLEY ABREU on 05/30/23 Normal [facility] CNPLucia 05-17-2023 CNPN [facility] CNNURSEon 05-16-2023 [facility] (INTLKB) GALINDO SNOW ([id number]) 1970 M Date Time Provider Department 05/16/23 8:30 AM NURSE INTM [facility] L[facility] INTLKB During your visit today, we recorded the following information about you: Chucky Bustamante RN 05/16/2023 8:41 AM Signed Patient has been identified by name and date of : Yes Patient given Testosterone Cypionate 200mg IM in the right upper quadrant gluteus. Patient tolerated injection well. Lot#: [id number] Exp date: 08/2025 Chucky Bustamante RN Allergies As of Date: 05/16/2023 Noted Allergy Reaction DILAUDID (HYDROMORPHONE (BULK)) 11/03/2014 1 - Mental Status Change 9 - Itching Date Reviewed: 05/10/2023 Reviewed by: Ventura Marie RN - Fully Assessed Reason for Visit: Imm/Inj [58] Primary Visit Diagnosis:Hypogonadism in male [E29.1] Prescriptions as of 05/16/2023 - docusate sodium (COLACE) 100 mg capsule Take 1 capsule by mouth once daily. - doxepin capsule 10 mg Take 1 capsule by mouth daily at bedtime. - hydroCHLOROthiazide 12.5 mg capsule Take 1 capsule by mouth once daily. - lisinopril (ZESTRIL) 40 mg tablet Take 1 tablet by mouth once daily. - magnesium oxide (MAG-OX) 400 mg (241.3 mg magnesium) tablet Take 1 tablet by mouth once daily. - pantoprazole DR (PROTONIX) 40 mg tablet Take 1 tablet by mouth two times a day before meals at 6 am and 4 pm. - sildenafil (VIAGRA) 100 mg tablet Take 1 tablet by mouth as needed. 30-60 minutes before sexual intercourse - testosterone cypionate (DEPO-TESTOSTERONE) 200 mg/mL injection Inject 1 mL intramuscularly every 2 weeks for 180 days. - therapeutic multivitamin-minerals (THERA M PLUS, FERROUS FUMARAT,) 9 mg iron-400 mcg tablet Take 1 tablet by mouth once daily. - thiamine (VITAMIN B1) 100 mg tablet 1 tablet by ORAL/FEEDING TUBE route three times daily. - venlafaxine ER (EFFEXOR XR) 37.5 mg 24 hr capsule Take 1 capsule by mouth daily with breakfast. Facility-Administered Medications as of 05/16/2023 - testosterone cypionate 200 mg injection (DEPO-TESTOSTERONE) Meds Comments as of 12/30/2019: Pt stopped taking medications about 2 weeks ago- restarted 12/27 Problem List As Of Date 05/16/2023 Noted Resolved Thrombocytopenia (HCC) [D69.6] 07/01/2013 Gastropathy [K31.9] Alcohol use disorder [F10.90] Gallstones [K80.20] PUD (peptic ulcer disease) [K27.9] GERD (gastroesophageal reflux disease) [K21.9] 11/03/2014 PTSD (post-traumatic stress disorder) [F43.10] 11/03/2014 Bilateral hand numbness [R20.0] 10/22/2016 Cervicalgia [M54.2] 10/22/2016 Chronic neck pain [M54.2, G89.29] 10/22/2016 Sprain of anterior talofibular ligament of righ*07/07/2017 Lateral epicondylitis of left elbow [M77.12] 11/11/2017 Arthralgia of right acromioclavicular joint [M2*04/21/2018 Anxiety [F41.9] 06/14/2018 GI bleed [K92.2] 12/30/2019 01/01/2020 Non compliance with medical treatment [Z91.199] 12/30/2019 Abdominal pain [R10.9] 08/29/2020 Alcoholic cirrhosis of liver without ascites (H*03/01/2022 History of esophageal varices [Z87.19] 03/01/2022 Hypogonadism in male [E29.1] 05/09/2022 Essential hypertension [I10] 08/10/2022 Acute upper GI bleeding [K92.2] 03/30/2023 04/04/2023 Bleeding esophageal varices (HCC) [I85.01] 03/31/2023 04/04/2023 Hematemesis with nausea [K92.0] 03/31/2023 04/11/2023 Alcohol abuse [F10.10] 03/31/2023 Alcohol withdrawal delirium (HCC) [F10.931] 03/31/2023 Upper GI bleed [K92.2] 04/10/2023 04/11/2023 LLQ abdominal pain [R10.32] 04/10/2023 04/11/2023 Hematemesis without nausea [K92.0] 04/10/2023 04/11/2023 Nicotine use disorder, F17.2 [F17.200] 04/10/2023 Acute upper GI bleed [K92.2] 05/02/2023 05/03/2023 Severe protein-calorie malnutrition (HCC) [E43] 05/03/2023 GI bleeding [K92.2] 05/03/2023 05/04/2023 Alcohol use disorder, severe, dependence (HCC) *05/04/2023 Hematemesis [K92.0] 05/06/2023 05/10/2023 Withdrawal symptoms, alcohol, with delirium (HC*05/06/2023 05/10/2023 Acute encephalopathy [G93.40] 05/06/2023 05/10/2023 Alcoholic cirrhosis (HCC) [K70.30] 05/06/2023 Alcohol withdrawal syndrome with complication (*05/07/2023 05/10/2023 Delirium [R41.0] 05/08/2023 05/10/2023 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 Patient tolerated injection well. Lot#: [id number] Exp date: 08/2025 Chucky Bustamante RN Encounter Status:Closed by CHUCKY BUSTAMANTE on 05/16/23 Normal [facility] CNDSon 05-10-2023 CNDS Normal [facility] ECG COMPLETEon 05-10-2023 ECG COMPLETE Normal [facility] NURSING PROGon 05-10-2023 NURSING PROG Normal [facility] NUTRITIONon 05-10-2023 NUTRITION Normal [facility] CBC panel Auto (Bld)on 05-09 Erythrocyte distribution width (RBC) [Ratio] 12.9 % Normal 11.5-15.0 [facility] Comment on above: Order Comment: Speci men Type: BLOOD SPECIMENOrdering Facility: [facility] Address: [address] [place] [address] Performed By: #### 5 8410-2 ####[facility] LABORATORYCLIA [id number] [place] [address] [place] Hematocrit (Bld) [Volume fraction] 34.9 % Low 39.0-51.0 [facility] Comment on above: Order Comment: Speci men Type: BLOOD SPECIMENOrdering Facility: [facility] Address: [address] [place] [address] Performed By: #### 5 8410-2 ####[facility] LABORATORYCLIA [id number] [place] [address] [place] Hemoglobin (Bld) [Mass/Vol] 11.6 g/dL Low 13.0-17.0 [facility] Comment on above: Order Comment: Speci men Type: BLOOD SPECIMENOrdering Facility: [facility] Address: [address] [place] [address] Performed By: #### 5 8410-2 ####[facility] LABORATORYCLIA [id number] [place] [address] [place] MCH (RBC) [Entitic mass] 29.7 pg Normal 26.0-34.0 [facility] Comment on above: Order Comment: Speci men Type: BLOOD SPECIMENOrdering Facility: [facility] Address: [address] [place] [address] Performed By: #### 5 8410-2 ####[facility] LABORATORYCLIA [id number] [place] [id number] [place] MCHC (RBC) [Mass/Vol] 33.2 g/dL Normal 30.5-36.0 [facility] Comment on above: Order Comment: Speci men Type: BLOOD SPECIMENOrdering Facility: [facility] Address: [address] [place] [address] Performed By: #### 5 8410-2 ####[facility]ORATORYCLIA [id number] [place] [id number] [place] MCV (RBC) [Entitic vol] 89.3 fL Normal 80.0-100.0 [facility] Comment on above: Order Comment: Speci men Type: BLOOD SPECIMENOrdering Facility: [facility] Address: [address] [place] [address] Performed By: #### 5 8410-2 ####[facility] LABORATORYCLIA [id number] [place] [address] [place] Nucleated RBC (Bld) [#/Vol] 10*3/uL Normal <0.01 [facility] Comment on above: Order Comment: Speci men Type: BLOOD SPECIMENOrdering Facility: [facility] Address: [address] [place] [address] Performed By: #### 5 8410-2 ####[facility] LABORATORYCLIA [id number] [place] [address] [place] Platelet mean volume (Bld) [Entitic vol] 10.6 fL Normal 9.0-12.7 [facility] Comment on above: Order Comment: Speci men Type: BLOOD SPECIMENOrdering Facility: [facility] Address: [address] [place] [address] Performed By: #### 5 8410-2 ####[facility]ORATORYCLIA [id number] [address] [place] Platelets (Bld) [#/Vol] 56 10*3/uL Low 150-400 [facility] Comment on above: Order Comment: Speci men Type: BLOOD SPECIMENOrdering Facility: [facility] Address: [address] [place] [address] Result Comment: Resu lts checked and verified.No clot detected. Performed By: #### 5 8410-2 ####[facility] LABORATORYCLIA [id number] [place] [id number] [place] RBC (Bld) [#/Vol] 3.91 10*6/uL Low 4.20-6.00 [facility] Comment on above: Order Comment: Speci men Type: BLOOD SPECIMENOrdering Facility: [facility] Address: [address] [place] [address] Performed By: #### 5 8410-2 ####[facility]ORATORYCLIA [id number] [place] [id number] [place] WBC (Bld) [#/Vol] 2.70 10*3/uL Low 3.70-11.00 [facility] Comment on above: Order Comment: Speci men Type: BLOOD SPECIMENOrdering Facility: [facility] Address: [address] [place] [address] Performed By: #### 5 8410-2 ####[facility]ORATORYCLIA [id number] [place] [id number] [place] CONSULT PROGon 05-09-2023 CONSULT PROG Normal [facility] Comprehensive metabolic 2000 panelon 05-09-2023 Albumin [Mass/Vol] 3.7 g/dL Low 3.9-4.9 [facility] Comment on above: Order Comment: Speci men Type: BLOOD SPECIMENOrdering Facility: [facility] Address: [address] [place] [address] Performed By: #### 2 4323-8, 75390-3, 2777- ####[facility]ORATORYCLIA [id number] [place] [id number] [place] ALP [Catalytic activity/Vol] 120 U/L High 38-113 [facility] Comment on above: Order Comment: Speci men Type: BLOOD SPECIMENOrdering Facility: [facility] Address: [address] [place] [address] Performed By: #### 2 4323-8, , 2776-08 ####[facility] LABORATORYCLIA [id number] [place] [address] [place] ALT [Catalytic activity/Vol] 27 U/L Normal 10-54 [facility] Comment on above: Order Comment: Speci men Type: BLOOD SPECIMENOrdering Facility: [facility] Address: [address] [place] [address] Performed By: #### 2 4323-8, , 2776-08 ####[facility]ORATORYCLIA [id number] [place] [address] [place] Anion gap [Moles/Vol] 9 mmol/L Normal 9-18 [facility] Comment on above: Order Comment: Speci men Type: BLOOD SPECIMENOrdering Facility: [facility] Address: [address] [place] [address] Performed By: #### 2 4328, , 2776-08 ####[facility]ORATORYCLIA [id number] [place] [id number] [place] AST [Catalytic activity/Vol] 49 U/L High 14-40 [facility] Comment on above: Order Comment: Speci men Type: BLOOD SPECIMENOrdering Facility: [facility] Address: [address] [place] [address] Performed By: #### 2 4323-8, , 2776-08 ####[facility]ORATORYCLIA [id number] [place] [id number] [place] Bilirubin [Mass/Vol] 0.4 mg/dL Normal 0.2-1.3 [facility] Comment on above: Order Comment: Speci men Type: BLOOD SPECIMENOrdering Facility: [facility] Address: [address] [place] [address] Performed By: #### 2 4323-8, , 2776-08 ####[facility]ORATORYCLIA [id number] [place] [address] [place] Calcium [Mass/Vol] 8.2 mg/dL Low 8.5-10.2 [facility] Comment on above: Order Comment: Speci men Type: BLOOD SPECIMENOrdering Facility: [facility] Address: [address] [place] [address] Performed By: #### 2 4323-8, , 2776-08 ####[facility]ORATORYCLIA [id number] [place] [id number] [place] Chloride [Moles/Vol] 107 mmol/L High 97-105 [facility] Comment on above: Order Comment: Speci men Type: BLOOD SPECIMENOrdering Facility: [facility] Address: [address] [place] [address] Performed By: #### 2 4323-8, , 2776-08 ####[facility]ORATORYCLIA [id number] [place] [id number] [place] CO2 [Moles/Vol] 25 mmol/L Normal 22-30 [facility] Comment on above: Order Comment: Speci men Type: BLOOD SPECIMENOrdering Facility: [facility] Address: [address] [place] [address] Performed By: #### 2 4323-8, , 2776-08 ####[facility] LABORATORYCLIA [id number] [place] [id number] [place] Creatinine [Mass/Vol] 0.86 mg/dL Normal 0.73-1.22 [facility] Comment on above: Order Comment: Speci men Type: BLOOD SPECIMENOrdering Facility: [facility] Address: [address] [place] [address] Performed By: #### 2 4323-8, , 2776-08 ####[facility] LABORATORYCLIA [id number] [place] [id number] [place] Creatinine and Glomerular filtration rate.predicted panel (S/P/Bld) 103 mL/min/1.73m??? Normal >=60 [facility] Comment on above: Order Comment: Speci men Type: BLOOD SPECIMENOrdering Facility: [facility] Address: [address] [place] [address] Result Comment: Puja mated Glomerular Filtration Rate (eGFR) is calculated using the 2020 CKD-EPI creatinine equation. This equation utilizes serum creatinine, sex, and age as parameters. The creatinine assay has traceable calibration to isotope dilution-mass spectrometry. Refer to KDIGO guidelines for clinical interpretation. In patients with unstable renal function, e.g. those with acute kidney injury, the eGFR may not accurately reflect actual GFR. Performed By: #### 2 4323-8, , 2776-08 ####[facility] LABORATORYCLIA [id number] [place] [id number] [place] Glucose [Mass/Vol] 97 mg/dL Normal 74-99 [facility] Comment on above: Order Comment: Berna champion Type: BLOOD SPECIMENOrdering Facility: [facility] Address: [address] [place] [address] Result Comment: The [place] [employer] (ADA) provides guidance for cutoff values for fasting glucose and random glucose. The ADA defines fasting as no caloric intake for at least 8 hours. Fasting plasma glucose results between 100 to 125 mg/dL indicate increased risk for diabetes (prediabetes).Fasting plasma glucose results greater than or equal to 126 mg/dL meet the criteria for diagnosis of diabetes. In the absence of unequivocal hyperglycemia, results should be confirmed by repeat testing. In a patient with classic symptoms of hyperglycemia or hyperglycemic crisis, random plasma glucose results greater than or equal to 200 mg/dL meet the criteria for diagnosis of diabetes.Reference: Standards of Medical Care in Diabetes 2016, [place] [employer]. Diabetes Care. 2016.39(Suppl 1). Performed By: #### 2 4323-8, , 2776-08 ####[facility]ORATORYCLIA [id number] [place] [id number] [place] Potassium [Moles/Vol] 3.7 mmol/L Normal 3.7-5.1 [facility] Comment on above: Order Comment: Berna champion Type: BLOOD SPECIMENOrdering Facility: [facility] Address: [address] [place] [address] Performed By: #### 2 4323-8, , 2776-08 ####[facility]ORATORYCLIA [id number] [place] [address] [place] Protein [Mass/Vol] 6.2 g/dL Low 6.3-8.0 [facility] Comment on above: Order Comment: Speci men Type: BLOOD SPECIMENOrdering Facility: [facility] Address: [address] [place] [address] Performed By: #### 2 4323-8, , 2776-08 ####[facility] LABORATORYCLIA [id number] [place] [id number] [place] Sodium [Moles/Vol] 141 mmol/L Normal 136-144 [facility] Comment on above: Order Comment: Speci men Type: BLOOD SPECIMENOrdering Facility: [facility] Address: [place] [address] Performed By: #### 2 4323-8, , 2776-08 ####[facility]ORATORYCLIA [id number] [place] [address] [place] Urea nitrogen [Mass/Vol] 11 mg/dL Normal 9-24 [facility] Comment on above: Order Comment: Speci men Type: BLOOD SPECIMENOrdering Facility: [facility] Address: [place] [address] Performed By: #### 2 4323-8, , 2776-08 ####[facility] LABORATORYCLIA [id number] [place] [id number] [place] ECG COMPLETEon 05-09-2023 ECG COMPLETE Normal [facility] Magnesium [Mass/Vol] 1.9 mg/dL Normal 1.7-2.3 [facility] Comment on above: Order Comment: Speci men Type: BLOOD SPECIMENOrdering Facility: [facility] Address: [address] [place] [address] Performed By: #### 2 4323-8, , 2776-08 ####[facility]ORATORYCLIA [id number] [place] [address] [place] NURSING PROGon 05-09-2023 NURSING PROG Normal [facility] Phosphate SerPl-mCncon 05-09 Phosphate [Mass/Vol] 3.6 mg/dL Normal 2.7-4.8 [facility] Comment on above: Order Comment: Speci men Type: BLOOD SPECIMENOrdering Facility: [facility] Address: [address] [place] [address] Performed By: #### 2 4323-8, 20936-1, 2777-1 ####[facility]ORATORYCLIA [id number] [place] [id number] [place] ALLIED HEALTHon 05-08-2023 ALLIED HEALTH Normal [facility] CASE MGT INIT ASSESon 2022 CASE MGT INIT [facility] CBC panel Auto (Bld)on 05-08 Erythrocyte distribution width (RBC) [Ratio] 12.5 % Normal 11.5-15.0 [facility] Comment on above: Order Comment: Speci men Type: BLOOD SPECIMENOrdering Facility: [facility] Address: [address] [place] [address] Performed By: #### 5 8410-2 ####[facility]ORATORYCLIA [id number] [address] [place] Hematocrit (Bld) [Volume fraction] 33.2 % Low 39.0-51.0 [facility] Comment on above: Order Comment: Speci men Type: BLOOD SPECIMENOrdering Facility: [facility] Address: [address] [place] [address] Performed By: #### 5 8410-2 ####[facility]ORATORYCLIA [id number] [place] [id number] [place] Hemoglobin (Bld) [Mass/Vol] 11.0 g/dL Low 13.0-17.0 [facility] Comment on above: Order Comment: Speci men Type: BLOOD SPECIMENOrdering Facility: [facility] Address: [address] [place] [address] Performed By: #### 5 8410-2 ####[facility]ORATORYCLIA [id number] [place] [address] [place] MCH (RBC) [Entitic mass] 29.6 pg Normal 26.0-34.0 [facility] Comment on above: Order Comment: Speci men Type: BLOOD SPECIMENOrdering Facility: [facility] Address: [address] [place] [address] Performed By: #### 5 8410-2 ####[facility] LABORATORYCLIA [id number] [address] MCHC (RBC) [Mass/Vol] 33.1 g/dL Normal 30.5-36.0 [facility] Comment on above: Order Comment: Speci men Type: BLOOD SPECIMENOrdering Facility: [facility] Address: [address] [place] [address] Performed By: #### 5 8410-2 ####[facility] LABORATORYCLIA [id number] [address] MCV (RBC) [Entitic vol] 89.2 fL Normal 80.0-100.0 [facility] Comment on above: Order Comment: Speci men Type: BLOOD SPECIMENOrdering Facility: [facility] Address: [address] [place] [address] Performed By: #### 5 8410-2 ####[facility] LABORATORYCLIA [id number] [address] Nucleated RBC (Bld) [#/Vol] 10*3/uL Normal <0.01 [facility] Comment on above: Order Comment: Speci men Type: BLOOD SPECIMENOrdering Facility: [facility] Address: [address] [place] [address] Performed By: #### 5 8410-2 ####[facility] LABORATORYCLIA [id number] [address] Platelet mean volume (Bld) [Entitic vol] 9.2 fL Normal 9.0-12.7 [facility] Comment on above: Order Comment: Speci men Type: BLOOD SPECIMENOrdering Facility: [facility] Address: [address] [place] [address] Performed By: #### 5 8410-2 ####[facility] LABORATORYCLIA [id number] [address] [place] Platelets (Bld) [#/Vol] 54 10*3/uL Low 150-400 [facility] Comment on above: Order Comment: Speci men Type: BLOOD SPECIMENOrdering Facility: [facility] Address: [address] [place] [address] Result Comment: No c lot detected. Performed By: #### 5 8410-2 ####[facility]ORATORYCLIA [id number] [place] [address] [place] RBC (Bld) [#/Vol] 3.72 10*6/uL Low 4.20-6.00 [facility] Comment on above: Order Comment: Speci men Type: BLOOD SPECIMENOrdering Facility: [facility] Address: [address] [place] [address] Performed By: #### 5 8410-2 ####[facility]ORATORYCLIA [id number] [address] [place] [facility] WBC (Bld) [#/Vol] 2.65 10*3/uL Low 3.70-11.00 [facility] Comment on above: Order Comment: Speci men Type: BLOOD SPECIMENOrdering Facility: [facility] Address: [address] [place] [address] Performed By: #### 5 8410-2 ####[facility]ORATORYCLIA [id number] [address] [place] CONSULT PROGon 05-08-2023 CONSULT PROG Normal [facility] Comprehensive metabolic 2000 panelon 05-08-2023 Albumin [Mass/Vol] 3.6 g/dL Low 3.9-4.9 [facility] Comment on above: Order Comment: Speci men Type: BLOOD SPECIMENOrdering Facility: [facility] Address: [address] [place] [address] Performed By: #### 1 9123-9, 10211-9, 3084-1, 2777-1 ####[facility]ORATORYCLIA [id number] [place] [address] [place] ALP [Catalytic activity/Vol] 127 U/L High 38-113 [facility] Comment on above: Order Comment: Speci men Type: BLOOD SPECIMENOrdering Facility: [facility] Address: [address] [place] [address] Performed By: #### 1 9123-9, 25677-4, 3084-1, 2777-1 ####[facility] LABORATORYCLIA [id number] [address] [place] ALT [Catalytic activity/Vol] 22 U/L Normal 10-54 [facility] Comment on above: Order Comment: Speci men Type: BLOOD SPECIMENOrdering Facility: [facility] Address: [address] [place] [address] Performed By: #### 1 9123-9, 66316-4, 3084-1, 2777- ####[facility] LABORATORYCLIA [id number] [address] [place] Anion gap [Moles/Vol] 10 mmol/L Normal 9-18 [facility] Comment on above: Order Comment: Speci men Type: BLOOD SPECIMENOrdering Facility: [facility] Address: [address] [place] [address] Performed By: #### 1 9123-9, 71686-7, 3084-1, 2776-1 ####[facility] LABORATORYCLIA [id number] [address] [place] AST [Catalytic activity/Vol] 47 U/L High 14-40 [facility] Comment on above: Order Comment: Speci men Type: BLOOD SPECIMENOrdering Facility: [facility] Address: [address] [place] [address] Performed By: #### 1 9123-9, 43810-0, 3084-1, 2777-1 ####[facility] LABORATORYCLIA [id number] [address] [place] Bilirubin [Mass/Vol] 0.5 mg/dL Normal 0.2-1.3 [facility] Comment on above: Order Comment: Speci men Type: BLOOD SPECIMENOrdering Facility: [facility] Address: [address] [place] [address] [place] [address] Performed By: #### 1 9123-9, 34236-2, 3084-1, 277- ####[facility]ORATORYCLIA [id number] [place] [id number] [place] Calcium [Mass/Vol] 8.5 mg/dL Normal 8.5-10.2 [facility] Comment on above: Order Comment: Speci men Type: BLOOD SPECIMENOrdering Facility: [facility] Address: [address] [place] [address] Performed By: #### 1 9123-9, 93325-7, 3084-1, 277- ####[facility] LABORATORYCLIA [id number] [place] [address] [place] Chloride [Moles/Vol] 102 mmol/L Normal 97-105 [facility] Comment on above: Order Comment: Speci men Type: BLOOD SPECIMENOrdering Facility: [facility] Address: [address] [place] [address] Performed By: #### 1 9123-9, 65910-2, 3084-1, 277- ####[facility] LABORATORYCLIA [id number] [place] [id number] [place] CO2 [Moles/Vol] 25 mmol/L Normal 22-30 [facility] Comment on above: Order Comment: Speci men Type: BLOOD SPECIMENOrdering Facility: [facility] Address: [address] [place] [address] Performed By: #### 1 9123-9, 41727-1, 3084-1, 2777- ####[facility] LABORATORYCLIA [id number] [place] [id number] [place] Creatinine [Mass/Vol] 0.91 mg/dL Normal 0.73-1.22 [facility] Comment on above: Order Comment: Speci men Type: BLOOD SPECIMENOrdering Facility: [facility] Address: [address] [address] Performed By: #### 1 9123-9, 05434-8, 3084-1, 2777-1 ####[facility] LABORATORYCLIA [id number] [place] [address] [place] Creatinine and Glomerular filtration rate.predicted panel (S/P/Bld) 100 mL/min/1.73m??? Normal >=60 [facility] Comment on above: Order Comment: Berna champion Type: BLOOD SPECIMENOrdering Facility: [facility] Address: [address] [place] [address] Result Comment: Puja mated Glomerular Filtration Rate (eGFR) is calculated using the 2020 CKD-EPI creatinine equation. This equation utilizes serum creatinine, sex, and age as parameters. The creatinine assay has traceable calibration to isotope dilution-mass spectrometry. Refer to KDIGO guidelines for clinical interpretation. In patients with unstable renal function, e.g. those with acute kidney injury, the eGFR may not accurately reflect actual GFR. Performed By: #### 1 9123-9, 46086-8, 30811-03, 2776-08 ####[facility] LABORATORYCLIA [id number] [place] [address] [place] Glucose [Mass/Vol] 99 mg/dL Normal 74-99 [facility] Comment on above: Order Comment: Berna champion Type: BLOOD SPECIMENOrdering Facility: [facility] Address: [address] [place] [address] Result Comment: The [place] [employer] (ADA) provides guidance for cutoff values for fasting glucose and random glucose. The ADA defines fasting as no caloric intake for at least 8 hours. Fasting plasma glucose results between 100 to 125 mg/dL indicate increased risk for diabetes (prediabetes).Fasting plasma glucose results greater than or equal to 126 mg/dL meet the criteria for diagnosis of diabetes. In the absence of unequivocal hyperglycemia, results should be confirmed by repeat testing. In a patient with classic symptoms of hyperglycemia or hyperglycemic crisis, random plasma glucose results greater than or equal to 200 mg/dL meet the criteria for diagnosis of diabetes.Reference: Standards of Medical Care in Diabetes 2016, [place] [employer]. Diabetes Care. 2016.39(Suppl 1). Performed By: #### 1 9123-9, 86072-4, 308-, 2776- ####[facility] LABORATORYCLIA [id number] [place] [address] [place] Potassium [Moles/Vol] 3.6 mmol/L Low 3.7-5.1 [facility] Comment on above: Order Comment: Speci men Type: BLOOD SPECIMENOrdering Facility: [facility] Address: [address] [place] [address] Performed By: #### 1 9123-9, 84374-4, 3084-1, 2777-1 ####[facility] LABORATORYCLIA [id number] [place] [id number] [place] Protein [Mass/Vol] 6.1 g/dL Low 6.3-8.0 [facility] Comment on above: Order Comment: Speci men Type: BLOOD SPECIMENOrdering Facility: [facility] Address: [address] [place] [address] Performed By: #### 1 9123-9, 49005-7, 3084-1, 277-1 ####[facility] LABORATORYCLIA [id number] [place] [address] [place] Sodium [Moles/Vol] 137 mmol/L Normal 136-144 [facility] Comment on above: Order Comment: Speci men Type: BLOOD SPECIMENOrdering Facility: [facility] Address: [address] [place] [address] Performed By: #### 1 9123-9, 91479-8, 3084-1, 2777-1 ####[facility] LABORATORYCLIA [id number] [place] [id number] [place] Urea nitrogen [Mass/Vol] 13 mg/dL Normal 9-24 [facility] Comment on above: Order Comment: Speci men Type: BLOOD SPECIMENOrdering Facility: [facility] Address: [address] [place] [address] Performed By: #### 1 9123-9, 59434-3, 3084-1, 2777-1 ####[facility] LABORATORYCLIA [id number] [place] [id number] [place] ECG COMPLETEon 10-04-2023 ECG COMPLETE Normal [facility] Magnesium SerPl-ncon 05-08 Magnesium [Mass/Vol] 2.0 mg/dL Normal 1.7-2.3 [facility] Comment on above: Order Comment: Speci men Type: BLOOD SPECIMENOrdering Facility: [facility] Address: [address] [place] [id number] Performed By: #### 1 9123-9, 84870-9, 3084-1, 2777-1 ####[facility] LABORATORYCLIA [id number] [address] [place] NURSING PROGon 05-08-2023 NURSING PROG Normal [facility] NURSING PROG Normal [facility] Phosphate [Mass/Vol] 3.3 mg/dL Normal 2.7-4.8 [facility] Comment on above: Order Comment: Speci men Type: BLOOD SPECIMENOrdering Facility: [facility] Address: [address] [place] [address] Performed By: #### 1 9123-9, 13169-5, 3084-, 2777- ####[facility] LABORATORYCLIA [id number] [address] [place] Urate [facility]-ncon Urate [Mass/Vol] 6.7 mg/dL Normal 4.0-8.1 [facility] Comment on above: Order Comment: Speci men Type: BLOOD SPECIMENOrdering Facility: [facility] Address: [place] [address] Performed By: #### 1 9123-9, 25389-3, 3084-, 2777-1 ####[facility] LABORATORYCLIA [id number] [place] [address] [place] XR TOE 3V AP/LAT/OBL LTon XR TOE 3V AP/LAT/OBL LT Normal [facility] ALLIED HEALTHon 05-07-2023 ALLIED HEALTH Normal [facility] CBC panel Auto (Bld)on 05-07 Erythrocyte distribution width (RBC) [Ratio] 12.3 % Normal 11.5-15.0 [facility] Comment on above: Order Comment: Speci men Type: BLOOD SPECIMENOrdering Facility: [facility] Address: [address] [place] [address] Performed By: #### 5 8410-2 ####[facility] LABORATORYCLIA [id number] [address] Hematocrit (Bld) [Volume fraction] 36.0 % Low 39.0-51.0 [facility] Comment on above: Order Comment: Speci men Type: BLOOD SPECIMENOrdering Facility: [facility] Address: [address] [place] [address] Performed By: #### 5 8410-2 ####[facility] LABORATORYCLIA [id number] [address] [place] Hemoglobin (Bld) [Mass/Vol] 11.9 g/dL Low 13.0-17.0 [facility] Comment on above: Order Comment: Speci men Type: BLOOD SPECIMENOrdering Facility: [facility] Address: [address] [place] [address] Performed By: #### 5 8410-2 ####[facility] LABORATORYCLIA [id number] [address] STATES [facility] MCH (RBC) [Entitic mass] 29.6 pg Normal 26.0-34.0 [facility] Comment on above: Order Comment: Speci men Type: BLOOD SPECIMENOrdering Facility: [facility] Address: [address] [place] [address] Performed By: #### 5 8410-2 ####[facility] LABORATORYCLIA [id number] [address] MCHC (RBC) [Mass/Vol] 33.1 g/dL Normal 30.5-36.0 [facility] Comment on above: Order Comment: Speci men Type: BLOOD SPECIMENOrdering Facility: [facility] Address: [address] [place] [address] Performed By: #### 5 8410-2 ####[facility] LABORATORYCLIA [id number] [address] [place] MCV (RBC) [Entitic vol] 89.6 fL Normal 80.0-100.0 [facility] Comment on above: Order Comment: Speci men Type: BLOOD SPECIMENOrdering Facility: [facility] Address: [address] [place] [address] Performed By: #### 5 8410-2 ####[facility] LABORATORYCLIA [id number] [place] [address] [place] Nucleated RBC (Bld) [#/Vol] 10*3/uL Normal <0.01 [facility] Comment on above: Order Comment: Speci men Type: BLOOD SPECIMENOrdering Facility: [facility] Address: [address] [place] [address] Performed By: #### 5 8410-2 ####[facility] LABORATORYCLIA [id number] [place] [address] [place] Platelet mean volume (Bld) [Entitic vol] 9.6 fL Normal 9.0-12.7 [facility] Comment on above: Order Comment: Speci men Type: BLOOD SPECIMENOrdering Facility: [facility] Address: [address] [place] [address] Performed By: #### 5 8410-2 ####[facility] LABORATORYCLIA [id number] [address] [place] Platelets (Bld) [#/Vol] 50 10*3/uL Low 150-400 [facility] Comment on above: Order Comment: Speci men Type: BLOOD SPECIMENOrdering Facility: [facility] Address: [address] [place] [address] Result Comment: No c lot detected. Performed By: #### 5 8410-2 ####[facility] LABORATORYCLIA [id number] [place] [address] [place] RBC (Bld) [#/Vol] 4.02 10*6/uL Low 4.20-6.00 [facility] Comment on above: Order Comment: Speci men Type: BLOOD SPECIMENOrdering Facility: [facility] Address: [address] Performed By: #### 5 8410-2 ####[facility] LABORATORYCLIA [id number] [place] [address] [place] WBC (Bld) [#/Vol] 3.01 10*3/uL Low 3.70-11.00 [facility] Comment on above: Order Comment: Speci men Type: BLOOD SPECIMENOrdering Facility: [facility] Address: [address] [place] [address] Performed By: #### 5 8410-2 ####[facility] LABORATORYCLIA [id number] [place] [id number] [place] CONSULT PROGon 05-07-2023 CONSULT PROG Normal [facility] Comprehensive metabolic 2000 panelon 05-07-2023 Albumin [Mass/Vol] 3.8 g/dL Low 3.9-4.9 [facility] Comment on above: Order Comment: Speci men Type: BLOOD SPECIMENOrdering Facility: [facility] Address: [address] Performed By: #### 1 9123-9, 2777-, 53559-4 ####[facility] LABORATORYCLIA [id number] [place] [address] [place] ALP [Catalytic activity/Vol] 114 U/L High 38-113 [facility] Comment on above: Order Comment: Speci men Type: BLOOD SPECIMENOrdering Facility: [facility] Address: [address] Performed By: #### 1 9123-9, 2777-, 31204-1 ####[facility] LABORATORYCLIA [id number] [place] [id number] [place] ALT [Catalytic activity/Vol] 21 U/L Normal 10-54 [facility] Comment on above: Order Comment: Speci men Type: BLOOD SPECIMENOrdering Facility: [facility] Address: [address] [place] [address] Performed By: #### 1 9123-9, 2777-, 75556-1 ####[facility] LABORATORYCLIA [id number] [place] [id number] [place] Anion gap [Moles/Vol] 13 mmol/L Normal 9-18 [facility] Comment on above: Order Comment: Speci men Type: BLOOD SPECIMENOrdering Facility: [facility] Address: [address] [place] [address] Performed By: #### 1 9123-9, 27702-02, ####[facility] LABORATORYCLIA [id number] [place] [address] [place] AST [Catalytic activity/Vol] 46 U/L High 14-40 [facility] Comment on above: Order Comment: Speci men Type: BLOOD SPECIMENOrdering Facility: [facility] Address: [address] [place] [address] Performed By: #### 1 9123-9, 27702-02, ####[facility] LABORATORYCLIA [id number] [place] [address] [place] Bilirubin [Mass/Vol] 0.9 mg/dL Normal 0.2-1.3 [facility] Comment on above: Order Comment: Speci men Type: BLOOD SPECIMENOrdering Facility: [facility] Address: [address] [place] [address] Performed By: #### 1 9123-9, 2776-08, ####[facility] LABORATORYCLIA [id number] [place] [id number] [place] Calcium [Mass/Vol] 8.2 mg/dL Low 8.5-10.2 [facility] Comment on above: Order Comment: Speci men Type: BLOOD SPECIMENOrdering Facility: [facility] Address: [address] [place] [address] Performed By: #### 1 9123-9, 2776-08, 31464-4 ####[facility] LABORATORYCLIA [id number] [place] [id number] [place] Chloride [Moles/Vol] 106 mmol/L High 97-105 [facility] Comment on above: Order Comment: Speci men Type: BLOOD SPECIMENOrdering Facility: [facility] Address: [address] [place] [address] Performed By: #### 1 9123-9, 27702-02, ####[facility] LABORATORYCLIA [id number] [address] STATES OF [facility] CO2 [Moles/Vol] 22 mmol/L Normal 22-30 [facility] Comment on above: Order Comment: Speci men Type: BLOOD SPECIMENOrdering Facility: [facility] Address: [address] [place] [address] Performed By: #### 1 9123-9, 27702-02, ####[facility] LABORATORYCLIA [id number] [address] Creatinine [Mass/Vol] 1.05 mg/dL Normal 0.73-1.22 [facility] Comment on above: Order Comment: Speci men Type: BLOOD SPECIMENOrdering Facility: [facility] Address: [address] [place] [address] Performed By: #### 1 9123-9, 2776-08, ####[facility] LABORATORYCLIA [id number] [address] Creatinine and Glomerular filtration rate.predicted panel (S/P/Bld) 84 mL/min/1.73m??? Normal >=60 [facility] Comment on above: Order Comment: Speci men Type: BLOOD SPECIMENOrdering Facility: [facility] Address: [address] [place] [address] Result Comment: Puja mated Glomerular Filtration Rate (eGFR) is calculated using the 2020 CKD-EPI creatinine equation. This equation utilizes serum creatinine, sex, and age as parameters. The creatinine assay has traceable calibration to isotope dilution-mass spectrometry. Refer to KDIGO guidelines for clinical interpretation. In patients with unstable renal function, e.g. those with acute kidney injury, the eGFR may not accurately reflect actual GFR. Performed By: #### 1 9123-9, 2777, 31175-2 ####[facility] LABORATORYCLIA [id number] [place] [address] [place] Glucose [Mass/Vol] 81 mg/dL Normal 74-99 [facility] Comment on above: Order Comment: Berna champion Type: BLOOD SPECIMENOrdering Facility: [facility] Address: [address] [place] [address] Result Comment: The [place] [employer] (ADA) provides guidance for cutoff values for fasting glucose and random glucose. The ADA defines fasting as no caloric intake for at least 8 hours. Fasting plasma glucose results between 100 to 125 mg/dL indicate increased risk for diabetes (prediabetes).Fasting plasma glucose results greater than or equal to 126 mg/dL meet the criteria for diagnosis of diabetes. In the absence of unequivocal hyperglycemia, results should be confirmed by repeat testing. In a patient with classic symptoms of hyperglycemia or hyperglycemic crisis, random plasma glucose results greater than or equal to 200 mg/dL meet the criteria for diagnosis of diabetes.Reference: Standards of Medical Care in Diabetes 2016, [place] [employer]. Diabetes Care. 2016.39(Suppl 1). Performed By: #### 1 9123-9, 2777, ####[facility] LABORATORYCLIA [id number] [place] [id number] [place] Potassium [Moles/Vol] 4.2 mmol/L Normal 3.7-5.1 [facility] Comment on above: Order Comment: Berna champion Type: BLOOD SPECIMENOrdering Facility: [facility] Address: [address] [place] [address] Performed By: #### 1 9123-9, 27702-02, 35468-1 ####[facility] LABORATORYCLIA [id number] [place] [id number] [place] Protein [Mass/Vol] 6.4 g/dL Normal 6.3-8.0 [facility] Comment on above: Order Comment: Berna champion Type: BLOOD SPECIMENOrdering Facility: [facility] Address: [address] [place] [id number] Performed By: #### 1 9123-9, 27702-02, ####[facility] LABORATORYCLIA [id number] [place] [address] [place] Sodium [Moles/Vol] 141 mmol/L Normal 136-144 [facility] Comment on above: Order Comment: Speci men Type: BLOOD SPECIMENOrdering Facility: [facility] Address: [address] [place] [address] Performed By: #### 1 9123-9, 2777-1, 70857-3 ####[facility] LABORATORYCLIA [id number] [place] [id number] [facility] Urea nitrogen [Mass/Vol] 13 mg/dL Normal 9-24 [facility] Comment on above: Order Comment: Speci men Type: BLOOD SPECIMENOrdering Facility: [facility] Address: [address] [place] [address] Performed By: #### 1 9123-9, 2777-, 48245-0 ####[facility] LABORATORYCLIA [id number] [address] Magnesium SerPl-[facility] 05-07 Magnesium [Mass/Vol] 2.1 mg/dL Normal 1.7-2.3 [facility] Comment on above: Order Comment: Speci men Type: BLOOD SPECIMENOrdering Facility: [facility] Address: [address] [place] [address] Performed By: #### 1 9123-9, 2777, 12400-9 ####[facility] LABORATORYCLIA [id number] [place] [id number] [facility] NUTRITIONon 05-07-2023 NUTRITION Normal [facility] Phosphate SerPl-mCncon 05-07 Phosphate [Mass/Vol] 3.3 mg/dL Normal 2.7-4.8 [facility] Comment on above: Order Comment: Speci men Type: BLOOD SPECIMENOrdering Facility: [facility] Address: [address] [place] [address] Performed By: #### 1 9123-9, 2777-1, 16822-8 ####[facility] LABORATORYCLIA [id number] [place] [id number] [place] SOCIAL WORKon 05-07-2023 SOCIAL WORK Normal [facility] THERAPY NTon 05-07-2023 THERAPY NT Normal [facility] THERAPY NT Normal [facility] ALLIED HEALTHon 05-06-2023 ALLIED HEALTH Normal [facility] CONSULTon 05-06-2023 CONSULT Normal [facility] ECG COMPLETEon 05-06-2023 ECG COMPLETE Normal [facility] ED NOTEon 05-06-2023 ED NOTE Normal [facility] HISTORY PHYSICALon 3 HISTORY PHYSICAL Normal [facility] STAPH AUREUS PCRon 3 S. aureus and MRSA panel RUI+probe (Nose) Normal Negative [facility] Comment on above: Order Comment: Speci men Type: SWAB OF INTERNAL NOSEOrdering Facility: [facility] Address: [address] [place] [address] Result Comment: Nega tive for Staphylococcus aureus by PCR.Negative for MRSA by PCR Performed By: #### S APCR ####[facility] LABCLIA [id number] [address] [place] TOX SCREEN ROUT URon 023 Amphetamines Confirm (U) [Mass/Vol] Negative Normal Negative [facility] Comment on above: Order Comment: Speci men Type: URINE SPECIMENOrdering Facility: [facility] Address: [address] [place] [address] Result Comment: Cuto ff threshold at 1000 ng/mL. Performed By: #### U TOX2 ####[facility] LABORATORYCLIA [id number] [place] [address] [place] BARBITURATES, URINE Positive Abnormal Negative [facility] Comment on above: Order Comment: Speci men Type: URINE SPECIMENOrdering Facility: [facility] Address: [address] [place] [address] Result Comment: Cuto ff threshold at 200 ng/mL. Performed By: #### U TOX2 ####[facility] LABORATORYCLIA [id number] [place] [address] [place] BENZODIAZEPINES, UR Negative Normal Negative [facility] Comment on above: Order Comment: Speci men Type: URINE SPECIMENOrdering Facility: [facility] Address: [address] [place] [place] [address] Result Comment: Cuto ff threshold at 200 ng/mL. Performed By: #### U TOX2 ####[facility] LABORATORYCLIA [id number] [place] [address] [facility] Cannabinoids Screen Ql (U) Negative Normal Negative [facility] Comment on above: Order Comment: Speci men Type: URINE SPECIMENOrdering Facility: [facility] Address: [address] [place] [address] Result Comment: Cuto ff threshold at 50 ng/mL. Performed By: #### U TOX2 ####[facility] LABORATORYCLIA [id number] [address] [place] Cocaine Ql (U) Negative Normal Negative [facility] Comment on above: Order Comment: Speci men Type: URINE SPECIMENOrdering Facility: [facility] Address: [address] [place] [address] Result Comment: Cuto ff threshold at 300 ng/mL. Performed By: #### U TOX2 ####[facility] LABORATORYCLIA [id number] [place] [address] [place] Ethanol (U) [Mass/Vol] 73 mg/dL High <11 [facility] Comment on above: Order Comment: Speci men Type: URINE SPECIMENOrdering Facility: [facility] Address: [address] [place] [address] Performed By: #### U TOX2 ####[facility] LABORATORYCLIA [id number] [place] [address] [place] Opiates Screen Ql (U) Negative Normal Negative [facility] Comment on above: Order Comment: Speci men Type: URINE SPECIMENOrdering Facility: [facility] Address: [address] [place] [place] [address] Result Comment: Cuto ff threshold at 300 ng/mL. Performed By: #### U TOX2 ####[facility] LABORATORYCLIA [id number] [place] [address] [place] oxyCODONE cutoff Screen (U) [Mass/Vol] Negative Normal Negative [facility] Comment on above: Order Comment: Speci men Type: URINE SPECIMENOrdering Facility: [facility] Address: [address] [place] [address] Result Comment: Cuto ff threshold at 100 ng/mL. Performed By: #### U TOX2 ####[facility] LABORATORYCLIA [id number] [address] Phencyclidine Ql (U) Negative Normal Negative [facility] Comment on above: Order Comment: Speci men Type: URINE SPECIMENOrdering Facility: [facility] Address: [address] [place] [address] Result Comment: Cuto ff threshold at 25 ng/mL. Performed By: #### U TOX2 ####[facility] LABORATORYCLIA [id number] [place] [address] [place] US ASCITES SURVEYon 05-06-20 ASCITES SURVEY Normal [facility] Ammonia Plas-sCncon 05-05-20 Ammonia (P) [Moles/Vol] 18 umol/L Normal 16-60 [facility] Comment on above: Order Comment: Speci men Type: BLOOD SPECIMENOrdering Facility: [facility] Address: [address] [place] [address] Performed By: #### 1 6362-6 ####[facility] LABORATORYCLIA [id number] [address] [place] CBC W Auto Differential pane l (Bld)on 05-05-2023 Basophils (Bld) [#/Vol] 10*3/uL Normal <0.11 [facility] Comment on above: Order Comment: Speci men Type: BLOOD SPECIMENOrdering Facility: [facility] Address: [address] [place] [place] [address] Performed By: #### 5 7021-8 ####[facility] LABORATORYCLIA [id number] [address] Basophils/100 WBC (Bld) 0.4 % Normal [facility] Comment on above: Order Comment: Speci men Type: BLOOD SPECIMENOrdering Facility: [facility] Address: [address] [place] [address] Performed By: #### 5 7021-8 ####[facility] LABORATORYCLIA [id number] [place] [address] [place] Differential cell count method Nom (Bld) Auto Normal [facility] Comment on above: Order Comment: Speci men Type: BLOOD SPECIMENOrdering Facility: [facility] Address: [address] [place] [address] Performed By: #### 5 7021-8 ####[facility] LABORATORYCLIA [id number] [place] [address] [place] Eosinophils (Bld) [#/Vol] 0.13 10*3/uL Normal <0.46 [facility] Comment on above: Order Comment: Speci men Type: BLOOD SPECIMENOrdering Facility: [facility] Address: [address] [place] [address] Performed By: #### 5 7021-8 ####[facility] LABORATORYCLIA [id number] [place] [address] [place] Eosinophils/100 WBC (Bld) 2.3 % Normal [facility] Comment on above: Order Comment: Speci men Type: BLOOD SPECIMENOrdering Facility: [facility] Address: [address] [place] [address] Performed By: #### 5 7021-8 ####[facility] LABORATORYCLIA [id number] [address] [place] Erythrocyte distribution width (RBC) [Ratio] 12.7 % Normal 11.5-15.0 [facility] Comment on above: Order Comment: Speci men Type: BLOOD SPECIMENOrdering Facility: [facility] Address: [address] [place] [address] Performed By: #### 5 7021-8 ####[facility] LABORATORYCLIA [id number] [address] [place] Hematocrit (Bld) [Volume fraction] 35.8 % Low 39.0-51.0 [facility] Comment on above: Order Comment: Speci men Type: BLOOD SPECIMENOrdering Facility: [facility] Address: [address] [place] [address] Performed By: #### 5 7021-8 ####[facility] LABORATORYCLIA [id number] [place] [address] [place] Hemoglobin (Bld) [Mass/Vol] 11.6 g/dL Low 13.0-17.0 [facility] Comment on above: Order Comment: Speci men Type: BLOOD SPECIMENOrdering Facility: [facility] Address: [address] [place] [address] Performed By: #### 5 7021-8 ####[facility] LABORATORYCLIA [id number] [place] [address] [place] Immature granulocytes (Bld) [#/Vol] 0.04 10*3/uL Normal <0.10 [facility] Comment on above: Order Comment: Speci men Type: BLOOD SPECIMENOrdering Facility: [facility] Address: [address] [place] [address] Performed By: #### 5 7021-8 ####[facility] LABORATORYCLIA [id number] [place] [address] [place] Immature granulocytes/100 WBC (Bld) 0.7 % Normal [facility] Comment on above: Order Comment: Speci men Type: BLOOD SPECIMENOrdering Facility: [facility] Address: [address] [place] [address] Performed By: #### 5 7021-8 ####[facility] LABORATORYCLIA [id number] [place] [address] [place] Lymphocytes (Bld) [#/Vol] 1.22 10*3/uL Normal 1.00-4.00 [facility] Comment on above: Order Comment: Speci men Type: BLOOD SPECIMENOrdering Facility: [facility] Address: [address] [place] [address] Performed By: #### 5 7021-8 ####[facility] LABORATORYCLIA [id number] [place] [address] [place] Lymphocytes/100 WBC (Bld) 21.9 % Normal [facility] Comment on above: Order Comment: Speci men Type: BLOOD SPECIMENOrdering Facility: [facility] Address: [address] [address] Performed By: #### 5 7021-8 ####STACEY LABORATORYCLIA [id number] [address] MCH (RBC) [Entitic mass] 29.4 pg Normal 26.0-34.0 [facility] Comment on above: Order Comment: Speci men Type: BLOOD SPECIMENOrdering Facility: [facility] Address: [address] [address] Performed By: #### 5 7021-8 ####STACEY LABORATORYCLIA [id number] [address] MCHC (RBC) [Mass/Vol] 32.4 g/dL Normal 30.5-36.0 [facility] Comment on above: Order Comment: Speci men Type: BLOOD SPECIMENOrdering Facility: [facility] Address: [address] [address] Performed By: #### 5 7021-8 ####STACEY LABORATORYCLIA [id number] [address] MCV (RBC) [Entitic vol] 90.6 fL Normal 80.0-100.0 [facility] Comment on above: Order Comment: Speci men Type: BLOOD SPECIMENOrdering Facility: [facility] Address: [address] [place] [address] Performed By: #### 5 7021-8 ####STACEY LABORATORYCLIA [id number] [address] Monocytes (Bld) [#/Vol] 0.51 10*3/uL Normal <0.87 [facility] Comment on above: Order Comment: Speci men Type: BLOOD SPECIMENOrdering Facility: [facility] Address: [address] [address] Performed By: #### 5 7021-8 ####STACEY LABORATORYCLIA [id number] [place] [address] [place] Monocytes/100 WBC (Bld) 9.2 % Normal [facility] Comment on above: Order Comment: Speci men Type: BLOOD SPECIMENOrdering Facility: [facility] Address: [address] [address] Performed By: #### 5 7021-8 ####STACEY LABORATORYCLIA [id number] [place] [address] [place] Neutrophils (Bld) [#/Vol] 3.64 10*3/uL Normal 1.45-7.50 [facility] Comment on above: Order Comment: Speci men Type: BLOOD SPECIMENOrdering Facility: [facility] Address: [address] [place] [address] Performed By: #### 5 7021-8 ####STACEY LABORATORYCLIA [id number] [place] [address] [place] Neutrophils/100 WBC (Bld) 65.5 % Normal [facility] Comment on above: Order Comment: Speci men Type: BLOOD SPECIMENOrdering Facility: [facility] Address: [address] [place] [address] Performed By: #### 5 7021-8 ####STACEY LABORATORYCLIA [id number] [place] [address] [place] Nucleated RBC (Bld) [#/Vol] 10*3/uL Normal <0.01 [facility] Comment on above: Order Comment: Speci men Type: BLOOD SPECIMENOrdering Facility: [facility] Address: [address] [place] [address] Performed By: #### 5 7021-8 ####STACEY LABORATORYCLIA [id number] [place] [address] [place] Nucleated RBC/100 WBC (Bld) [Ratio] 0.0 /100 WBC Normal [facility] Comment on above: Order Comment: Speci men Type: BLOOD SPECIMENOrdering Facility: [facility] Address: [address] [place] [address] Performed By: #### 5 7021-8 ####STACEY LABORATORYCLIA [id number] [place] [address] [place] Platelet mean volume (Bld) [Entitic vol] 9.9 fL Normal 9.0-12.7 [facility] Comment on above: Order Comment: Speci men Type: BLOOD SPECIMENOrdering Facility: [facility] Address: [address] [place] [address] Performed By: #### 5 7021-8 ####CURTIS LABORATORYCLIA [id number] [address] [place] [id number] [place] Platelets (Bld) [#/Vol] 63 10*3/uL Low 150-400 [facility] Comment on above: Order Comment: Speci men Type: BLOOD SPECIMENOrdering Facility: [facility] Address: [address] [place] [address] Result Comment: No c lot detected. Performed By: #### 5 7021-8 ####CURTIS LABORATORYCLIA [id number] [place] [address] [place] RBC (Bld) [#/Vol] 3.95 10*6/uL Low 4.20-6.00 [facility] Comment on above: Order Comment: Speci men Type: BLOOD SPECIMENOrdering Facility: [facility] Address: [address] [address] Performed By: #### 5 7021-8 ####CURTIS LABORATORYCLIA [id number] [address] [id number] [place] WBC (Bld) [#/Vol] 5.56 10*3/uL Normal 3.70-11.00 [facility] Comment on above: Order Comment: Speci men Type: BLOOD SPECIMENOrdering Facility: [facility] Address: [address] [place] [address] Performed By: #### 5 7021-8 ####CURTIS LABORATORYCLIA [id number] [place] [id number] [place] Comprehensive metabolic 2000 panelon 05-05-2023 Albumin [Mass/Vol] 4.3 g/dL Normal 3.9-4.9 [facility] Comment on above: Order Comment: Speci men Type: BLOOD SPECIMENOrdering Facility: [facility] Address: [address] [address] Performed By: #### 2 4323-8, 3039-3 ####STACEY LABORATORYCLIA [id number] [place] [address] [place] ALP [Catalytic activity/Vol] 131 U/L High 38-113 [facility] Comment on above: Order Comment: Speci men Type: BLOOD SPECIMENOrdering Facility: [facility] Address: [address] [address] Performed By: #### 2 4323-8, 3039-3 ####STACEY LABORATORYCLIA [id number] [address] STATES [facility] ALT [Catalytic activity/Vol] 26 U/L Normal 10-54 [facility] Comment on above: Order Comment: Speci men Type: BLOOD SPECIMENOrdering Facility: [facility] Address: [address] [address] Performed By: #### 2 4328, 3039-3 ####STACEY LABORATORYCLIA [id number] [place] [address] [place] Anion gap [Moles/Vol] 11 mmol/L Normal 9-18 [facility] Comment on above: Order Comment: Speci men Type: BLOOD SPECIMENOrdering Facility: [facility] Address: [address] [address] Performed By: #### 2 8, 3039-3 ####STACEY LABORATORYCLIA [id number] [place] [address] [place] AST [Catalytic activity/Vol] 71 U/L High 14-40 [facility] Comment on above: Order Comment: Speci men Type: BLOOD SPECIMENOrdering Facility: [facility] Address: [address] [address] Performed By: #### 2 4323-8, 3039-3 ####SATCEY LABORATORYCLIA [id number] [place] [id number] [place] Bilirubin [Mass/Vol] 0.9 mg/dL Normal 0.2-1.3 [facility] Comment on above: Order Comment: Speci men Type: BLOOD SPECIMENOrdering Facility: [facility] Address: [address] [address] Performed By: #### 2 4323-8, 0-3 ####STACEY LABORATORYCLIA [id number] [place] [id number] [place] Calcium [Mass/Vol] 9.1 mg/dL Normal 8.5-10.2 [facility] Comment on above: Order Comment: Speci men Type: BLOOD SPECIMENOrdering Facility: [facility] Address: [address] [address] Performed By: #### 2 4328, 3039-3 ####STACEY LABORATORYCLIA [id number] [place] [address] [place] Chloride [Moles/Vol] 107 mmol/L High 97-105 [facility] Comment on above: Order Comment: Speci men Type: BLOOD SPECIMENOrdering Facility: [facility] Address: [address] [address] Performed By: #### 2 43210-10, 3039-3 ####STACEY LABORATORYCLIA [id number] [place] [address] [place] CO2 [Moles/Vol] 25 mmol/L Normal 22-30 [facility] Comment on above: Order Comment: Speci men Type: BLOOD SPECIMENOrdering Facility: [facility] Address: [address] [address] Performed By: #### 2 4328, 3039-3 ####[facility] LABORATORYCLIA [id number] [place] [address] [place] Creatinine [Mass/Vol] 1.01 mg/dL Normal 0.73-1.22 [facility] Comment on above: Order Comment: Speci men Type: BLOOD SPECIMENOrdering Facility: [facility] Address: [address] [address] Performed By: #### 2 4328, 3039-3 ####CURTIS LABORATORYCLIA [id number] [address] [id number] [place] Creatinine and Glomerular filtration rate.predicted panel (S/P/Bld) 88 mL/min/1.73m??? Normal >=60 [facility] Comment on above: Order Comment: Berna akira Type: BLOOD SPECIMENOrdering Facility: [facility] Address: [address] [address] Result Comment: Puja mated Glomerular Filtration Rate (eGFR) is calculated using the 2020 CKD-EPI creatinine equation. This equation utilizes serum creatinine, sex, and age as parameters. The creatinine assay has traceable calibration to isotope dilution-mass spectrometry. Refer to KDIGO guidelines for clinical interpretation. In patients with unstable renal function, e.g. those with acute kidney injury, the eGFR may not accurately reflect actual GFR. Performed By: #### 2 4323-8, 3039-3 ####CURTIS LABORATORYCLIA [id number] [address] [id number] [place] Glucose [Mass/Vol] 81 mg/dL Normal 74-99 [facility] Comment on above: Order Comment: Berna champion Type: BLOOD SPECIMENOrdering Facility: [facility] Address: [address] [place] [address] Result Comment: The [place] [employer] (ADA) provides guidance for cutoff values for fasting glucose and random glucose. The ADA defines fasting as no caloric intake for at least 8 hours. Fasting plasma glucose results between 100 to 125 mg/dL indicate increased risk for diabetes (prediabetes).Fasting plasma glucose results greater than or equal to 126 mg/dL meet the criteria for diagnosis of diabetes. In the absence of unequivocal hyperglycemia, results should be confirmed by repeat testing. In a patient with classic symptoms of hyperglycemia or hyperglycemic crisis, random plasma glucose results greater than or equal to 200 mg/dL meet the criteria for diagnosis of diabetes.Reference: Standards of Medical Care in Diabetes 2016, [place] [employer]. Diabetes Care. 2016.39(Suppl 1). Performed By: #### 2 4323-8, 0-3 ####CURTIS LABORATORYCLIA [id number] [address] [place] [id number] [place] Potassium [Moles/Vol] 4.1 mmol/L Normal 3.7-5.1 [facility] Comment on above: Order Comment: Speci men Type: BLOOD SPECIMENOrdering Facility: [facility] Address: [address] [address] Performed By: #### 2 4323-8, 3040-3 ####[facility] LABORATORYCLIA [id number] [place] [id number] [place] Protein [Mass/Vol] 7.1 g/dL Normal 6.3-8.0 [facility] Comment on above: Order Comment: Speci men Type: BLOOD SPECIMENOrdering Facility: [facility] Address: [address] [address] Performed By: #### 2 4323-8, 0-3 ####[facility] LABORATORYCLIA [id number] [place] [address] [place] Sodium [Moles/Vol] 143 mmol/L Normal 136-144 [facility] Comment on above: Order Comment: Speci men Type: BLOOD SPECIMENOrdering Facility: [facility] Address: [address] [address] Performed By: #### 2 4323-8, 0-3 ####CURTIS LABORATORYCLIA [id number] [place] [address] [place] Urea nitrogen [Mass/Vol] 5 mg/dL Low 9-24 [facility] Comment on above: Order Comment: Speci men Type: BLOOD SPECIMENOrdering Facility: [facility] Address: [address] [address] Performed By: #### 2 4323-8, 0-3 ####CURTIS LABORATORYCLIA [id number] [place] [id number] [place] ECG COMPLETEon 05-05-2023 ECG COMPLETE Normal [facility] ED NOTEon 05-05-2023 ED NOTE HNO ID: [id number] Author: Charlotte Herrera RN Service: ? Author Type: Registered Nurse Type: ED Notes Filed: 05/05/2023 9:32 PM Note Text: Bed: 12-ED Expected date: Expected time: Means of arrival: Comments: LW 3 32M ETOH, cirrhosis VSS Normal [facility] ED PROV NOTEon 05-05-2023 ED PROV NOTE Normal [facility] Ethanol SerPl-mCncon 023 Ethanol [Mass/Vol] 194 mg/dL High <11 [facility] Comment on above: Order Comment: Speci men Type: BLOOD SPECIMENOrdering Facility: [facility] Address: [address] [address] Result Comment: Valu es > 80 mg/dL may indicate intoxication Performed By: #### 5 643-2 ####[facility] LABORATORYCLIA [id number] [place] [address] [place] HIGH SENSITIVITY TROPONIN To n 05-05-2023 Troponin T.cardiac High sensitivity method [Mass/Vol] 16 ng/L High <12 [facility] Comment on above: Order Comment: [facility] Type: BLOOD SPECIMENOrdering Facility: [facility] Address: [address] [address] Result Comment: When assessing risk for acute coronary syndromes: In patients undergoing blood draw greater than or equal to 2 hours from symptom onset, with history of very low to moderate risk and non-ischemic ECG, an initial hs-Troponin T less than 12 ng/L AND a 1 hour delta hs-Troponin T less than 3 ng/L should be considered very low risk for 30 day MACE. Performed By: #### 1 9123-9, HSTNT ####STACEY LABORATORYCLIA [id number] [place] [id number] [place] Lipase SerPl-cCncon 05-05-20 23 Lipase [Catalytic activity/Vol] 43 U/L Normal 16-61 [facility] Comment on above: Order Comment: Speci men Type: BLOOD SPECIMENOrdering Facility: [facility] Address: [address] [address] Performed By: #### 2 4323-8, 3040-3 ####STACEY LABORATORYCLIA [id number] [place] [id number] [place] Magnesium SerPl-mCncon 05-05 Magnesium [Mass/Vol] 2.2 mg/dL Normal 1.7-2.3 [facility] Comment on above: Order Comment: Speci men Type: BLOOD SPECIMENOrdering Facility: [facility] Address: [address] [address] Performed By: #### 1 9123-9, HSTNT ####CURTIS LABORATORYCLIA [id number] [place] [id number] [place] PT panel Coag (PPP)on 2022 INR Coag (PPP) [Relative time] 1.3 {INR} Normal 0.9-1.3 [facility] Comment on above: Order Comment: Speci men Type: BLOOD SPECIMENOrdering Facility: [facility] Address: [address] [address] Result Comment: Kecia min K Antagonist (VKA) Therapeutic Range: INR 2 to 3 (Target INR of 2.5)Note: For patients treated with VKA drugs, such as warfarin, the [place] [employer] 2012 Guideline recommends a therapeutic INR range of 2 to 3 (target INR of 2.5). This recommendation includes high-risk patients with antiphospholipid syndrome with previous arterial or venous thromboembolism, current-generation mechanical or bioprosthetic aortic heart valve replacement.Note: Patients with mechanical aortic valve replacement and additional risk factors for thromboembolic events (atrial fibrillation, previous thromboembolism, LV dysfunction, hypercoagulable conditions) or an older generation mechanical AVR (i.e., ball in-Cage) or any mechanical MVR should have a INR therapeutic range of 2.5 to 3.5 (target INR of 3).Pinky GH, et al. Chest 2012, 141:7S-47SNishimrosa RA, et al. [facility] 2017, 70: 252-289 Performed By: #### 1 4979-9, 38315-4 ####[facility]TIS LABORATORYCLIA [id number] [place] [id number] [place] PT Coag (PPP) [Time] 13.8 s High 9.7-13.0 [facility] Comment on above: Order Comment: Speci men Type: BLOOD SPECIMENOrdering Facility: [facility] Address: [address] [address] Performed By: #### 1 4979-9, 86329-5 ####CURTIS LABORATORYCLIA [id number] [address] [place] TYPE + SCREENon 05-05-2023 ABO O [facility] Comment on above: Order Comment: Speci men Type: BLOOD SPECIMENOrdering Facility: [facility] Address: [address] [address] Performed By: #### T SCR ####[facility] BLOOD BANKCLIA [id number] [address] HISTORICAL AB SCR STATUS Negative [facility] Comment on above: Order Comment: Speci men Type: BLOOD SPECIMENOrdering Facility: [facility] Address: [address] [place] [address] Performed By: #### T SCR ####[facility] BLOOD BANKCLIA [id number] [address] [place] Rh Nom (Bld) Positive [facility] Comment on above: Order Comment: Speci men Type: BLOOD SPECIMENOrdering Facility: [facility] Address: [address] [place] [address] Performed By: #### T SCR ####[facility] BLOOD BANKCLIA [id number] [address] TYPE AND SCREEN EXPIRATION 05/08/2023 23:59 Normal [facility] Comment on above: Order Comment: Speci men Type: BLOOD SPECIMENOrdering Facility: [facility] Address: [address] [address] Performed By: #### T SCR ####[facility] BLOOD BANKCLIA [id number] [place] [address] [place] aPTT PPPon 05-05-2023 aPTT Coag (PPP) [Time] 31.0 s Normal 23.0-32.4 [facility] Comment on above: Order Comment: Speci men Type: BLOOD SPECIMENOrdering Facility: [facility] Address: [address] [address] Performed By: #### 1 4979-9, 75736-0 ####[facility] LABORATORYCLIA [id number] [place] [address] [place] CASE MANAGEMon 05-04-2023 CASE MANAGEM Normal [facility] CNDSon 05-04-2023 CNDS Normal [facility] ED PROV NOTEon 05-04-2023 ED PROV NOTE Normal [facility] NURSING PROGon 05-04-2023 NURSING PROG Normal [facility] NURSING PROG Normal [facility] NURSING PROG Normal [facility] ANES POSTPROC EVALon 023 ANES POSTPROC EVAL Normal [facility] ANES PRE-OPon 05-03-2023 ANES PRE-OP Normal [facility] CASE MANAGEMon 05-03-2023 CASE MANAGEM Normal [facility] CASE MGT INIT ASSESon 2022 CASE MGT INIT ASSES Normal [facility] CASE MGT INIT [facility] CBC panel Auto (Bld)on 05-03 Erythrocyte distribution width (RBC) [Ratio] 12.7 % Normal 11.5-15.0 [facility] Comment on above: Order Comment: Speci men Type: BLOOD SPECIMENOrdering Facility: [facility] Address: [address] [place] [address] Performed By: #### 5 8410-2 ####[facility] LABORATORYCLIA [id number] [place] [address] [place] Hematocrit (Bld) [Volume fraction] 34.0 % Low 39.0-51.0 [facility] Comment on above: Order Comment: Speci men Type: BLOOD SPECIMENOrdering Facility: [facility] Address: [address] [place] [address] Performed By: #### 5 8410-2 ####[facility] LABORATORYCLIA [id number] [place] [address] [place] Hemoglobin (Bld) [Mass/Vol] 11.2 g/dL Low 13.0-17.0 [facility] Comment on above: Order Comment: Speci men Type: BLOOD SPECIMENOrdering Facility: [facility] Address: [address] [place] [address] Performed By: #### 5 8410-2 ####[facility] LABORATORYCLIA [id number] [address] [place] [facility] MCH (RBC) [Entitic mass] 29.9 pg Normal 26.0-34.0 [facility] Comment on above: Order Comment: Speci men Type: BLOOD SPECIMENOrdering Facility: [facility] Address: [address] [place] [address] Performed By: #### 5 8410-2 ####[facility] LABORATORYCLIA [id number] [address] [place] MCHC (RBC) [Mass/Vol] 32.9 g/dL Normal 30.5-36.0 [facility] Comment on above: Order Comment: Speci men Type: BLOOD SPECIMENOrdering Facility: [facility] Address: [address] [place] [address] Performed By: #### 5 8410-2 ####[facility] LABORATORYCLIA [id number] [address] STATES [facility] MCV (RBC) [Entitic vol] 90.9 fL Normal 80.0-100.0 [facility] Comment on above: Order Comment: Speci men Type: BLOOD SPECIMENOrdering Facility: [facility] Address: [address] [place] [address] Performed By: #### 5 8410-2 ####[facility] LABORATORYCLIA [id number] [address] [place] Nucleated RBC (Bld) [#/Vol] 10*3/uL Normal <0.01 [facility] Comment on above: Order Comment: Speci men Type: BLOOD SPECIMENOrdering Facility: [facility] Address: [address] [place] [address] Performed By: #### 5 8410-2 ####[facility] LABORATORYCLIA [id number] [address] [place] Platelet mean volume (Bld) [Entitic vol] 9.0 fL Normal 9.0-12.7 [facility] Comment on above: Order Comment: Speci men Type: BLOOD SPECIMENOrdering Facility: [facility] Address: [address] [address] Performed By: #### 5 8410-2 ####[facility] LABORATORYCLIA [id number] [place] [id number] [place] Platelets (Bld) [#/Vol] 68 10*3/uL Low 150-400 [facility] Comment on above: Order Comment: Speci men Type: BLOOD SPECIMENOrdering Facility: [facility] Address: [address] [address] Result Comment: No c lot detected. Performed By: #### 5 8410-2 ####[facility] LABORATORYCLIA [id number] [place] [id number] [place] RBC (Bld) [#/Vol] 3.74 10*6/uL Low 4.20-6.00 [facility] Comment on above: Order Comment: Speci men Type: BLOOD SPECIMENOrdering Facility: [facility] Address: [address] [address] Performed By: #### 5 8410-2 ####[facility] LABORATORYCLIA [id number] [place] [id number] [place] WBC (Bld) [#/Vol] 3.91 10*3/uL Normal 3.70-11.00 [facility] Comment on above: Order Comment: Speci men Type: BLOOD SPECIMENOrdering Facility: [facility] Address: [address] [place] [address] Performed By: #### 5 8410-2 ####[facility] LABORATORYCLIA [id number] [place] [id number] [place] CONSULTon 05-03-2023 CONSULT Normal [facility] Comprehensive metabolic 2000 panelon 05-03-2023 Albumin [Mass/Vol] 4.0 g/dL Normal 3.9-4.9 [facility] Comment on above: Order Comment: Speci men Type: BLOOD SPECIMENOrdering Facility: [facility] Address: [address] [place] [address] Performed By: #### 2 4323-8 ####[facility] LABORATORYCLIA [id number] [place] [address] [place] ALP [Catalytic activity/Vol] 100 U/L Normal 38-113 [facility] Comment on above: Order Comment: Speci men Type: BLOOD SPECIMENOrdering Facility: [facility] Address: [address] [address] Performed By: #### 2 4323-8 ####[facility] LABORATORYCLIA [id number] [place] [address] [place] ALT [Catalytic activity/Vol] 22 U/L Normal 10-54 [facility] Comment on above: Order Comment: Speci men Type: BLOOD SPECIMENOrdering Facility: [facility] Address: [address] [place] [address] Performed By: #### 2 4323-8 ####[facility] LABORATORYCLIA [id number] [address] [place] Anion gap [Moles/Vol] 13 mmol/L Normal 9-18 [facility] Comment on above: Order Comment: Speci men Type: BLOOD SPECIMENOrdering Facility: [facility] Address: [address] [place] [address] Performed By: #### 2 4323-8 ####[facility] LABORATORYCLIA [id number] [address] [place] AST [Catalytic activity/Vol] 47 U/L High 14-40 [facility] Comment on above: Order Comment: Speci men Type: BLOOD SPECIMENOrdering Facility: [facility] Address: [address] [address] Performed By: #### 2 4323-8 ####[facility] LABORATORYCLIA [id number] [address] [place] Bilirubin [Mass/Vol] 0.5 mg/dL Normal 0.2-1.3 [facility] Comment on above: Order Comment: Speci men Type: BLOOD SPECIMENOrdering Facility: [facility] Address: [address] [address] Performed By: #### 2 4323-8 ####[facility] LABORATORYCLIA [id number] [place] [id number] [place] Calcium [Mass/Vol] 7.9 mg/dL Low 8.5-10.2 [facility] Comment on above: Order Comment: Speci men Type: BLOOD SPECIMENOrdering Facility: [facility] Address: [address] [place] [address] Performed By: #### 2 4323-8 ####[facility] LABORATORYCLIA [id number] [place] [address] [place] Chloride [Moles/Vol] 109 mmol/L High 97-105 [facility] Comment on above: Order Comment: Speci men Type: BLOOD SPECIMENOrdering Facility: [facility] Address: [address] [place] [address] Performed By: #### 2 4323-8 ####[facility] LABORATORYCLIA [id number] [place] [address] [place] CO2 [Moles/Vol] 23 mmol/L Normal 22-30 [facility] Comment on above: Order Comment: Speci men Type: BLOOD SPECIMENOrdering Facility: [facility] Address: [address] [place] [address] Performed By: #### 2 4323-8 ####[facility] LABORATORYCLIA [id number] [address] [place] Creatinine [Mass/Vol] 0.92 mg/dL Normal 0.73-1.22 [facility] Comment on above: Order Comment: Speci men Type: BLOOD SPECIMENOrdering Facility: [facility] Address: [address] [place] [address] Performed By: #### 2 4323-8 ####[facility] LABORATORYCLIA [id number] [address] [place] Creatinine and Glomerular filtration rate.predicted panel (S/P/Bld) 99 mL/min/1.73m??? Normal >=60 [facility] Comment on above: Order Comment: Speci men Type: BLOOD SPECIMENOrdering Facility: [facility] Address: [place] [address] Result Comment: Puja mated Glomerular Filtration Rate (eGFR) is calculated using the 2020 CKD-EPI creatinine equation. This equation utilizes serum creatinine, sex, and age as parameters. The creatinine assay has traceable calibration to isotope dilution-mass spectrometry. Refer to KDIGO guidelines for clinical interpretation. In patients with unstable renal function, e.g. those with acute kidney injury, the eGFR may not accurately reflect actual GFR. Performed By: #### 2 4323-8 ####[facility] LABORATORYCLIA [id number] [place] [address] [place] Glucose [Mass/Vol] 149 mg/dL High 74-99 [facility] Comment on above: Order Comment: Berna champion Type: BLOOD SPECIMENOrdering Facility: [facility] Address: [address] [place] [phone] Result Comment: The [place] Diabetes Association (ADA) provides guidance for cutoff values for fasting glucose and random glucose. The ADA defines fasting as no caloric intake for at least 8 hours. Fasting plasma glucose results between 100 to 125 mg/dL indicate increased risk for diabetes (prediabetes).Fasting plasma glucose results greater than or equal to 126 mg/dL meet the criteria for diagnosis of diabetes. In the absence of unequivocal hyperglycemia, results should be confirmed by repeat testing. In a patient with classic symptoms of hyperglycemia or hyperglycemic crisis, random plasma glucose results greater than or equal to 200 mg/dL meet the criteria for diagnosis of diabetes.Reference: Standards of Medical Care in Diabetes 2016, [place] [employer]. Diabetes Care. 2016.39(Suppl 1). Performed By: #### 2 4323-8 ####[facility] LABORATORYCLIA [id number] [place] [address] [place] Potassium [Moles/Vol] 3.9 mmol/L Normal 3.7-5.1 [facility] Comment on above: Order Comment: Berna champion Type: BLOOD SPECIMENOrdering Facility: [facility] Address: [place] [address] Performed By: #### 2 4323-8 ####[facility] LABORATORYCLIA [id number] [address] [place] Protein [Mass/Vol] 6.6 g/dL Normal 6.3-8.0 [facility] Comment on above: Order Comment: Speci men Type: BLOOD SPECIMENOrdering Facility: [facility] Address: [address] [place] [address] Performed By: #### 2 4323-8 ####[facility] LABORATORYCLIA [id number] [address] [place] Sodium [Moles/Vol] 145 mmol/L High 136-144 [facility] Comment on above: Order Comment: Speci men Type: BLOOD SPECIMENOrdering Facility: [facility] Address: [address] [place] [address] Performed By: #### 2 4323-8 ####[facility] LABORATORYCLIA [id number] [address] [place] Urea nitrogen [Mass/Vol] 5 mg/dL Low 9-24 [facility] Comment on above: Order Comment: Speci men Type: BLOOD SPECIMENOrdering Facility: [facility] Address: [address] [place] [address] Performed By: #### 2 4323-8 ####[facility] LABORATORYCLIA [id number] [address] [place] NURSING PROGon 05-03-2023 NURSING PROG Normal [facility] NUTRITIONon 05-03-2023 NUTRITION Normal [facility] SARS-CoV-2 RNA Resp Ql RUI+p robeon 05-03-2023 SARS-CoV-2 (COVID-19) RNA RUI+probe Ql (Resp) COVID 19 RESULT: Not detected The method used is RT-PCR or an equivalent NAAT method. Reference Range(the expected result in uninfected individuals): Not detected Normal [facility] Comment on above: Performed By: #### 9 4500-6 ####[facility] LABORATORYCLIA [id number] [address] [place] TOX SCREEN ROUT URon 023 Amphetamines Confirm (U) [Mass/Vol] Negative Normal Negative [facility] Comment on above: Order Comment: Speci men Type: URINE SPECIMENOrdering Facility: [facility] Address: [address] [address] Result Comment: Cuto ff threshold at 1000 ng/mL. Performed By: #### U TOX2 ####[facility] LABORATORYCLIA [id number] [address] BARBITURATES, URINE Positive Abnormal Negative [facility] Comment on above: Order Comment: Speci men Type: URINE SPECIMENOrdering Facility: [facility] Address: [address] [address] Result Comment: Cuto ff threshold at 200 ng/mL. Performed By: #### U TOX2 ####[facility] LABORATORYCLIA [id number] [place] [address] [place] BENZODIAZEPINES, UR Negative Normal Negative [facility] Comment on above: Order Comment: Speci men Type: URINE SPECIMENOrdering Facility: [facility] Address: [address] [address] Result Comment: Cuto ff threshold at 200 ng/mL. Performed By: #### U TOX2 ####[facility] LABORATORYCLIA [id number] [address] Cannabinoids Screen Ql (U) Negative Normal Negative [facility] Comment on above: Order Comment: Speci men Type: URINE SPECIMENOrdering Facility: [facility] Address: [address] [place] [address] Result Comment: Cuto ff threshold at 50 ng/mL. Performed By: #### U TOX2 ####[facility] LABORATORYCLIA [id number] [address] [place] Cocaine Ql (U) Negative Normal Negative [facility] Comment on above: Order Comment: Speci men Type: URINE SPECIMENOrdering Facility: [facility] Address: [address] [address] Result Comment: Cuto ff threshold at 300 ng/mL. Performed By: #### U TOX2 ####[facility] LABORATORYCLIA [id number] [place] [address] [place] Ethanol (U) [Mass/Vol] 28 mg/dL High <11 [facility] Comment on above: Order Comment: Speci men Type: URINE SPECIMENOrdering Facility: [facility] Address: [address] [place] [address] Performed By: #### U TOX2 ####[facility] LABORATORYCLIA [id number] [address] Opiates Screen Ql (U) Negative Normal Negative [facility] Comment on above: Order Comment: Speci men Type: URINE SPECIMENOrdering Facility: [facility] Address: [address] [place] [address] Result Comment: Cuto ff threshold at 300 ng/mL. Performed By: #### U TOX2 ####[facility] LABORATORYCLIA [id number] [address] oxyCODONE cutoff Screen (U) [Mass/Vol] Negative Normal Negative [facility] Comment on above: Order Comment: Speci men Type: URINE SPECIMENOrdering Facility: [facility] Address: [address] [place] [address] Result Comment: Cuto ff threshold at 100 ng/mL. Performed By: #### U TOX2 ####[facility] LABORATORYCLIA [id number] [address] Phencyclidine Ql (U) Negative Normal Negative [facility] Comment on above: Order Comment: Speci men Type: URINE SPECIMENOrdering Facility: [facility] Address: [address] [place] [address] Result Comment: Cuto ff threshold at 25 ng/mL. Performed By: #### U TOX2 ####[facility] LABORATORYCLIA [id number] [place] [address] [place] Upper GI endoscopyon 023 Upper GI endoscopy Normal [facility] Ammonia Plas-sCncon 05-02-20 23 Ammonia (P) [Moles/Vol] 35 umol/L Normal 16-60 [facility] Comment on above: Order Comment: Speci men Type: BLOOD SPECIMENOrdering Facility: [facility] Address: [address] [address] Performed By: #### 1 6362-6 ####[facility] LABORATORYCLIA [id number] [place] [address] [place] CBC W Auto Differential pane l (Bld)on 05-02-2023 Basophils (Bld) [#/Vol] 0.03 10*3/uL Normal <0.11 [facility] Comment on above: Order Comment: Speci men Type: BLOOD SPECIMENOrdering Facility: [facility] Address: [address] [address] Performed By: #### 5 7021-8 ####[facility] LABORATORYCLIA [id number] [place] [address] [place] Basophils/100 WBC (Bld) 0.6 % Normal [facility] Comment on above: Order Comment: Speci men Type: BLOOD SPECIMENOrdering Facility: [facility] Address: [address] [address] Performed By: #### 5 7021-8 ####[facility] LABORATORYCLIA [id number] [place] [address] [place] Differential cell count method Nom (Bld) Auto Normal [facility] Comment on above: Order Comment: Speci men Type: BLOOD SPECIMENOrdering Facility: [facility] Address: [address] [address] Performed By: #### 5 7021-8 ####[facility] LABORATORYCLIA [id number] [place] [address] [place] Eosinophils (Bld) [#/Vol] 0.25 10*3/uL Normal <0.46 [facility] Comment on above: Order Comment: Speci men Type: BLOOD SPECIMENOrdering Facility: [facility] Address: [address] [address] Performed By: #### 5 7021-8 ####[facility] LABORATORYCLIA [id number] [place] [address] [place] Eosinophils/100 WBC (Bld) 4.7 % Normal [facility] Comment on above: Order Comment: Speci men Type: BLOOD SPECIMENOrdering Facility: [facility] Address: [address] [address] Performed By: #### 5 7021-8 ####[facility] LABORATORYCLIA [id number] [address] [place] Erythrocyte distribution width (RBC) [Ratio] 12.8 % Normal 11.5-15.0 [facility] Comment on above: Order Comment: Speci men Type: BLOOD SPECIMENOrdering Facility: [facility] Address: [address] [address] Performed By: #### 5 7021-8 ####[facility] LABORATORYCLIA [id number] [address] [place] Hematocrit (Bld) [Volume fraction] 36.6 % Low 39.0-51.0 [facility] Comment on above: Order Comment: Speci men Type: BLOOD SPECIMENOrdering Facility: [facility] Address: [address] [address] Performed By: #### 5 7021-8 ####[facility] LABORATORYCLIA [id number] [place] [address] [place] Hemoglobin (Bld) [Mass/Vol] 12.3 g/dL Low 13.0-17.0 [facility] Comment on above: Order Comment: Speci men Type: BLOOD SPECIMENOrdering Facility: [facility] Address: [address] [address] Performed By: #### 5 7021-8 ####[facility] LABORATORYCLIA [id number] [place] [address] [place] Immature granulocytes (Bld) [#/Vol] 10*3/uL Normal <0.10 [facility] Comment on above: Order Comment: Speci men Type: BLOOD SPECIMENOrdering Facility: [facility] Address: [address] [place] [address] Performed By: #### 5 7021-8 ####[facility] LABORATORYCLIA [id number] [place] [address] [place] Immature granulocytes/100 WBC (Bld) 0.4 % Normal [facility] Comment on above: Order Comment: Speci men Type: BLOOD SPECIMENOrdering Facility: [facility] Address: [address] [place] [address] Performed By: #### 5 7021-8 ####[facility] LABORATORYCLIA [id number] [place] [address] [place] Lymphocytes (Bld) [#/Vol] 1.47 10*3/uL Normal 1.00-4.00 [facility] Comment on above: Order Comment: Speci men Type: BLOOD SPECIMENOrdering Facility: [facility] Address: [address] [address] Performed By: #### 5 7021-8 ####[facility] LABORATORYCLIA [id number] [place] [address] [place] Lymphocytes/100 WBC (Bld) 27.8 % Normal [facility] Comment on above: Order Comment: Speci men Type: BLOOD SPECIMENOrdering Facility: [facility] Address: [address] [place] [address] Performed By: #### 5 7021-8 ####[facility] LABORATORYCLIA [id number] [place] [address] [place] MCH (RBC) [Entitic mass] 30.0 pg Normal 26.0-34.0 [facility] Comment on above: Order Comment: Speci men Type: BLOOD SPECIMENOrdering Facility: [facility] Address: [address] [place] [address] Performed By: #### 5 7021-8 ####[facility] LABORATORYCLIA [id number] [place] [address] [place] MCHC (RBC) [Mass/Vol] 33.6 g/dL Normal 30.5-36.0 [facility] Comment on above: Order Comment: Speci men Type: BLOOD SPECIMENOrdering Facility: [facility] Address: [address] [place] [address] Performed By: #### 5 7021-8 ####[facility] LABORATORYCLIA [id number] [place] [address] [place] MCV (RBC) [Entitic vol] 89.3 fL Normal 80.0-100.0 [facility] Comment on above: Order Comment: Speci men Type: BLOOD SPECIMENOrdering Facility: [facility] Address: [address] [address] Performed By: #### 5 7021-8 ####[facility] LABORATORYCLIA [id number] [place] [address] [place] Monocytes (Bld) [#/Vol] 0.36 10*3/uL Normal <0.87 [facility] Comment on above: Order Comment: Speci men Type: BLOOD SPECIMENOrdering Facility: [facility] Address: [address] [place] [address] Performed By: #### 5 7021-8 ####[facility] LABORATORYCLIA [id number] [address] [place] Monocytes/100 WBC (Bld) 6.8 % Normal [facility] Comment on above: Order Comment: Speci men Type: BLOOD SPECIMENOrdering Facility: [facility] Address: [address] [place] [address] Performed By: #### 5 7021-8 ####[facility] LABORATORYCLIA [id number] [place] [address] [place] Neutrophils (Bld) [#/Vol] 3.16 10*3/uL Normal 1.45-7.50 [facility] Comment on above: Order Comment: Speci men Type: BLOOD SPECIMENOrdering Facility: [facility] Address: [address] [address] Performed By: #### 5 7021-8 ####[facility] LABORATORYCLIA [id number] [address] [place] Neutrophils/100 WBC (Bld) 59.7 % Normal [facility] Comment on above: Order Comment: Speci men Type: BLOOD SPECIMENOrdering Facility: [facility] Address: [address] [place] [address] Performed By: #### 5 7021-8 ####[facility] LABORATORYCLIA [id number] [place] [address] [place] Nucleated RBC (Bld) [#/Vol] 10*3/uL Normal <0.01 [facility] Comment on above: Order Comment: Speci men Type: BLOOD SPECIMENOrdering Facility: [facility] Address: [address] [place] [address] Performed By: #### 5 7021-8 ####[facility] LABORATORYCLIA [id number] [place] [address] [place] Nucleated RBC/100 WBC (Bld) [Ratio] 0.0 /100 WBC Normal [facility] Comment on above: Order Comment: Speci men Type: BLOOD SPECIMENOrdering Facility: [facility] Address: [address] [place] [address] Performed By: #### 5 7021-8 ####[facility] LABORATORYCLIA [id number] [place] [address] [place] Platelet mean volume (Bld) [Entitic vol] 9.1 fL Normal 9.0-12.7 [facility] Comment on above: Order Comment: Speci men Type: BLOOD SPECIMENOrdering Facility: [facility] Address: [address] [place] [address] Performed By: #### 5 7021-8 ####[facility] LABORATORYCLIA [id number] [place] [address] [place] Platelets (Bld) [#/Vol] 77 10*3/uL Low 150-400 [facility] Comment on above: Order Comment: Speci men Type: BLOOD SPECIMENOrdering Facility: [facility] Address: [address] [place] [address] Result Comment: No c lot detected. Performed By: #### 5 7021-8 ####[facility] LABORATORYCLIA [id number] [place] [address] [place] RBC (Bld) [#/Vol] 4.10 10*6/uL Low 4.20-6.00 [facility] Comment on above: Order Comment: Speci men Type: BLOOD SPECIMENOrdering Facility: [facility] Address: [address] [address] Performed By: #### 5 7021-8 ####[facility] LABORATORYCLIA [id number] [place] [id number] [facility] WBC (Bld) [#/Vol] 5.29 10*3/uL Normal 3.70-11.00 [facility] Comment on above: Order Comment: Speci men Type: BLOOD SPECIMENOrdering Facility: [facility] Address: [address] [address] Performed By: #### 5 7021-8 ####[facility] LABORATORYCLIA [id number] [place] [id number] [place] [facility] [place] Comprehensive metabolic 2000 panelon 05-02-2023 Albumin [Mass/Vol] 4.4 g/dL Normal 3.9-4.9 [facility] Comment on above: Order Comment: Speci men Type: BLOOD SPECIMENOrdering Facility: [facility] Address: [address] [place] [address] Performed By: #### 2 4323-8, , 3039-3 ####[facility] LABORATORYCLIA [id number] [place] [id number] [place] ALP [Catalytic activity/Vol] 114 U/L High 38-113 [facility] Comment on above: Order Comment: Speci men Type: BLOOD SPECIMENOrdering Facility: [facility] Address: [address] [address] Performed By: #### 2 4323-8, , 0-3 ####[facility] LABORATORYCLIA [id number] [place] [id number] [place] ALT [Catalytic activity/Vol] 26 U/L Normal 10-54 [facility] Comment on above: Order Comment: Speci men Type: BLOOD SPECIMENOrdering Facility: [facility] Address: [address] [address] Performed By: #### 2 4323-8, , 0-3 ####[facility] LABORATORYCLIA [id number] [place] [address] [place] Anion gap [Moles/Vol] 9 mmol/L Normal 9-18 [facility] Comment on above: Order Comment: Speci men Type: BLOOD SPECIMENOrdering Facility: [facility] Address: [address] [place] [address] Performed By: #### 2 4323-8, , 3039-3 ####[facility] LABORATORYCLIA [id number] [place] [id number] [place] AST [Catalytic activity/Vol] 58 U/L High 14-40 [facility] Comment on above: Order Comment: Speci men Type: BLOOD SPECIMENOrdering Facility: [facility] Address: [address] [place] [address] Performed By: #### 2 4323-8, , 3 ####[facility] LABORATORYCLIA [id number] [place] [address] [place] Bilirubin [Mass/Vol] 0.5 mg/dL Normal 0.2-1.3 [facility] Comment on above: Order Comment: Speci men Type: BLOOD SPECIMENOrdering Facility: [facility] Address: [address] [place] [address] Performed By: #### 2 4323-8, , 3 ####[facility] LABORATORYCLIA [id number] [place] [id number] [place] Calcium [Mass/Vol] 8.5 mg/dL Normal 8.5-10.2 [facility] Comment on above: Order Comment: Speci men Type: BLOOD SPECIMENOrdering Facility: [facility] Address: [address] [place] [address] Performed By: #### 2 4323-8, , 3039-3 ####[facility] LABORATORYCLIA [id number] [place] [id number] [place] Chloride [Moles/Vol] 104 mmol/L Normal 97-105 [facility] Comment on above: Order Comment: Speci men Type: BLOOD SPECIMENOrdering Facility: [facility] Address: [address] [address] Performed By: #### 2 4323-8, , 3 ####[facility] LABORATORYCLIA [id number] [address] [place] [facility] CO2 [Moles/Vol] 25 mmol/L Normal 22-30 [facility] Comment on above: Order Comment: Speci men Type: BLOOD SPECIMENOrdering Facility: [facility] Address: [address] [place] [address] Performed By: #### 2 4323-8, , 3 ####[facility] LABORATORYCLIA [id number] [address] Creatinine [Mass/Vol] 0.91 mg/dL Normal 0.73-1.22 [facility] Comment on above: Order Comment: Speci men Type: BLOOD SPECIMENOrdering Facility: [facility] Address: [address] [place] [address] Performed By: #### 2 4323-8, , 3 ####[facility] LABORATORYCLIA [id number] [address] Creatinine and Glomerular filtration rate.predicted panel (S/P/Bld) 100 mL/min/1.73m??? Normal >=60 [facility] Comment on above: Order Comment: Speci men Type: BLOOD SPECIMENOrdering Facility: [facility] Address: [address] [place] [address] Result Comment: Puja mated Glomerular Filtration Rate (eGFR) is calculated using the 2020 CKD-EPI creatinine equation. This equation utilizes serum creatinine, sex, and age as parameters. The creatinine assay has traceable calibration to isotope dilution-mass spectrometry. Refer to KDIGO guidelines for clinical interpretation. In patients with unstable renal function, e.g. those with acute kidney injury, the eGFR may not accurately reflect actual GFR. Performed By: #### 2 4323-8, 52510-4, 3039-3 ####[facility] LABORATORYCLIA [id number] [place] [address] [place] Glucose [Mass/Vol] 104 mg/dL High 74-99 [facility] Comment on above: Order Comment: Speci men Type: BLOOD SPECIMENOrdering Facility: [facility] Address: [address] [place], [place] [address] Result Comment: The [place] [employer] (ADA) provides guidance for cutoff values for fasting glucose and random glucose. The ADA defines fasting as no caloric intake for at least 8 hours. Fasting plasma glucose results between 100 to 125 mg/dL indicate increased risk for diabetes (prediabetes).Fasting plasma glucose results greater than or equal to 126 mg/dL meet the criteria for diagnosis of diabetes. In the absence of unequivocal hyperglycemia, results should be confirmed by repeat testing. In a patient with classic symptoms of hyperglycemia or hyperglycemic crisis, random plasma glucose results greater than or equal to 200 mg/dL meet the criteria for diagnosis of diabetes.Reference: Standards of Medical Care in Diabetes 2016, [place] [employer]. Diabetes Care. 2016.39(Suppl 1). Performed By: #### 2 4323-8, , 3039-3 ####[facility] LABORATORYCLIA [id number] [place] [id number] [place] Potassium [Moles/Vol] 3.8 mmol/L Normal 3.7-5.1 [facility] Comment on above: Order Comment: Berna champion Type: BLOOD SPECIMENOrdering Facility: [facility] Address: [place] [id number] Performed By: #### 2 4323-8, , 3 ####[facility] LABORATORYCLIA [id number] [place] [id number] [place] Protein [Mass/Vol] 7.4 g/dL Normal 6.3-8.0 [facility] Comment on above: Order Comment: Speci men Type: BLOOD SPECIMENOrdering Facility: [facility] Address: [place] [id number] Performed By: #### 2 4323-8, , 0-3 ####[facility] LABORATORYCLIA [id number] [place] [id number] [place] Sodium [Moles/Vol] 138 mmol/L Normal 136-144 [facility] Comment on above: Order Comment: Speci men Type: BLOOD SPECIMENOrdering Facility: [facility] Address: [place] [address] Performed By: #### 2 4323-8, 01707-8, 3040-3 ####[facility] LABORATORYCLIA [id number] [place] [id number] [place] Urea nitrogen [Mass/Vol] 4 mg/dL Low 9-24 [facility] Comment on above: Order Comment: Speci men Type: BLOOD SPECIMENOrdering Facility: [facility] Address: [place] [address] Performed By: #### 2 4323-8, 61351-0, 0-3 ####[facility]TIS LABORATORYCLIA [id number] [place] [id number] [place] ED NOTEon 05-02-2023 ED NOTE HNO ID: [id number] Author: Sanford Kendall RN Service: ? Author Type: Registered Nurse Type: ED Notes Filed: 05/02/2023 7:41 PM Note Text: Report given to GALE Harris. Normal [facility] ED NOTE Normal [facility] Ethanol SerPl-mCncon 023 Ethanol [Mass/Vol] 391 mg/dL High <11 [facility] Comment on above: Order Comment: Speci men Type: BLOOD SPECIMENOrdering Facility: [facility] Address: [place] [address] Result Comment: Valu es > 80 mg/dL may indicate intoxication Performed By: #### 5 643-2 ####[facility] LABORATORYCLIA [id number] [place] [address] [place] Lipase SerPl-cCncon 05-02-20 23 Lipase [Catalytic activity/Vol] 70 U/L High 16-61 [facility] Comment on above: Order Comment: Speci men Type: BLOOD SPECIMENOrdering Facility: [facility] Address: [address] [place] [address] Performed By: #### 2 4323-8, 69690-9, 0-3 ####[facility] LABORATORYCLIA [id number] [place] [address] [place] Magnesium SerPl-mCncon 05-02 Magnesium [Mass/Vol] 2.0 mg/dL Normal 1.7-2.3 [facility] Comment on above: Order Comment: Speci men Type: BLOOD SPECIMENOrdering Facility: [facility] Address: [place] [address] Performed By: #### 2 4323-8, , 3039-3 ####STACE[facility] LABORATORYCLIA [id number] [place] [id number] [facility] [place] NURSING PROGon 05-02-2023 NURSING PROG Normal [facility] PT panel Coag (PPP)on 2022 INR Coag (PPP) [Relative time] 1.1 {INR} Normal 0.9-1.3 [facility] Comment on above: Order Comment: Speci men Type: BLOOD SPECIMENOrdering Facility: [facility] Address: [address] [place] [id number] Result Comment: Kecia min K Antagonist (VKA) Therapeutic Range: INR 2 to 3 (Target INR of 2.5)Note: For patients treated with VKA drugs, such as warfarin, the [employer] 2012 Guideline recommends a therapeutic INR range of 2 to 3 (target INR of 2.5). This recommendation includes high-risk patients with antiphospholipid syndrome with previous arterial or venous thromboembolism, current-generation mechanical or bioprosthetic aortic heart valve replacement.Note: Patients with mechanical aortic valve replacement and additional risk factors for thromboembolic events (atrial fibrillation, previous thromboembolism, LV dysfunction, hypercoagulable conditions) or an older generation mechanical AVR (i.e., ball in-Cage) or any mechanical MVR should have a INR therapeutic range of 2.5 to 3.5 (target INR of 3).Pinky CAPPS, et al. Chest 2012, 141:7S-47SMonica JARAMILLO, et al. JACC 2017, 70: 252-289 Performed By: #### 1 4979-9, 40694-6 ####[facility]TIS LABORATORYCLIA [id number] [address] [place] PT Coag (PPP) [Time] 12.1 s Normal 9.7-13.0 [facility] Comment on above: Order Comment: Speci men Type: BLOOD SPECIMENOrdering Facility: [facility] Address: [address] [place] [address] Performed By: #### 1 4979-9, 33891-7 ####[facility] LABORATORYCLIA [id number] [address] TYPE + SCREENon 05-02-2023 ABO O Normal [facility] Comment on above: Order Comment: Speci men Type: BLOOD SPECIMENOrdering Facility: [facility] Address: [address] [place] [address] Performed By: #### T SCR ####[facility] BLOOD BANKCLIA [id number] [address] HISTORICAL AB SCR STATUS Negative [facility] Comment on above: Order Comment: Speci men Type: BLOOD SPECIMENOrdering Facility: [facility] Address: [address] [place] [address] Performed By: #### T SCR ####[facility] BLOOD BANKCLIA [id number] [address] Rh Nom (Bld) Positive [facility] Comment on above: Order Comment: Speci men Type: BLOOD SPECIMENOrdering Facility: [facility] Address: [address] [place] [address] Performed By: #### T SCR ####[facility] BLOOD BANKCLIA [id number] [address] TYPE AND SCREEN EXPIRATION 05/05/2023 23:59 Normal [facility] Comment on above: Order Comment: Speci men Type: BLOOD SPECIMENOrdering Facility: [facility] Address: [address] [place] [address] Performed By: #### T SCR ####[facility] BLOOD BANKCLIA [id number] [address] [place] Urinalysis complete panel (U )on 05-02-2023 Bilirubin Ql (U) Negative Normal Negative [facility] Comment on above: Order Comment: Speci men Type: URINE SPECIMENOrdering Facility: [facility] Address: [address] [place] [address] Performed By: #### 2 4356-8 ####[facility] LABORATORYCLIA [id number] [place] [address] [place] Clarity (Unsp spec) Clear Normal Clear [facility] Comment on above: Order Comment: Speci men Type: URINE SPECIMENOrdering Facility: [facility] Address: [address] [place] [address] Performed By: #### 2 4356-8 ####[facility] LABORATORYCLIA [id number] [address] STATES [facility] Color (U) Colorless Normal Yellow [facility] Comment on above: Order Comment: Speci men Type: URINE SPECIMENOrdering Facility: [facility] Address: [address] [place] [address] Performed By: #### 2 6-8 ####[facility] LABORATORYCLIA [id number] [address] Glucose Test strip (U) [Mass/Vol] Negative Normal Trace, Negative [facility] Comment on above: Order Comment: Speci men Type: URINE SPECIMENOrdering Facility: [facility] Address: [address] [place] [address] Performed By: #### 2 4356-8 ####[facility] LABORATORYCLIA [id number] [place] [address] [place] Hemoglobin Ql (U) Negative Normal Negative, Trace [facility] Comment on above: Order Comment: Speci men Type: URINE SPECIMENOrdering Facility: [facility] Address: [address] [place] [address] Performed By: #### 2 4356-8 ####[facility] LABORATORYCLIA [id number] [address] [place] Ketones Ql (U) Negative Normal Negative, Trace [facility] Comment on above: Order Comment: Speci men Type: URINE SPECIMENOrdering Facility: [facility] Address: [address] [place] [address] Performed By: #### 2 4356-8 ####[facility] LABORATORYCLIA [id number] [address] Leukocyte esterase Test strip Ql (U) Negative Normal Negative, 25 Lauren/uL [facility] Comment on above: Order Comment: Speci men Type: URINE SPECIMENOrdering Facility: [facility] Address: [address] [place] [address] Performed By: #### 2 4356-8 ####[facility] LABORATORYCLIA [id number] [address] STATES [facility] Nitrite Ql (U) Negative Normal Negative [facility] Comment on above: Order Comment: Speci men Type: URINE SPECIMENOrdering Facility: [facility] Address: [address] [place] [address] Performed By: #### 2 4356-8 ####[facility] LABORATORYCLIA [id number] [address] [place] pH (U) 6.0 [pH] Normal 5.0-8.0 [facility] Comment on above: Order Comment: Speci men Type: URINE SPECIMENOrdering Facility: [facility] Address: [address] [place] [address] Performed By: #### 2 4356-8 ####[facility] LABORATORYCLIA [id number] [address] [place] Protein (U) [Mass/Vol] Negative Normal Trace, Negative [facility] Comment on above: Order Comment: Speci men Type: URINE SPECIMENOrdering Facility: [facility] Address: [address] [place] [address] Performed By: #### 2 4356-8 ####[facility] LABORATORYCLIA [id number] [place] [address] [place] RBC LM.HPF (Urine sed) [#/Area] 0-3 /HPF Normal 0-3 /HPF [facility] Comment on above: Order Comment: Speci men Type: URINE SPECIMENOrdering Facility: [facility] Address: [address] [place] [address] Performed By: #### 2 4356-8 ####[facility] LABORATORYCLIA [id number] [address] [place] Specific gravity (U) [Rel density] 1.004 Low 1.005-1.030 [facility] Comment on above: Order Comment: Speci men Type: URINE SPECIMENOrdering Facility: [facility] Address: [address] [place] [address] Performed By: #### 2 4356-8 ####[facility] LABORATORYCLIA [id number] [place] [address] [place] Urobilinogen Ql (U) Negative Normal Negative [facility] Comment on above: Order Comment: Speci men Type: URINE SPECIMENOrdering Facility: [facility] Address: [address] [place] [address] Performed By: #### 2 4356-8 ####[facility] LABORATORYCLIA [id number] [place] [address] [place] WBC LM.HPF (Urine sed) [#/Area] 0-5 /HPF Normal 0-5 /HPF [facility] Comment on above: Order Comment: Speci men Type: URINE SPECIMENOrdering Facility: [facility] Address: [address] [place] [address] Performed By: #### 2 4356-8 ####[facility] LABORATORYCLIA [id number] [address] [place] aPTT PPPon 05-02-2023 aPTT Coag (PPP) [Time] 29.2 s Normal 23.0-32.4 [facility] Comment on above: Order Comment: Speci men Type: BLOOD SPECIMENOrdering Facility: [facility] Address: [address] [place] [address] Performed By: #### 1 4979-9, 15231-8 ####STACE[facility] LABORATORYCLIA [id number] [address] STATES OF [facility] CNOVon 04-22-2023 CNOV Office Visit (SPMLKW ) GALINDO SNOW ([id number]) 1970 M Date Time Provider Department 04/22/23 3:30 PM JULIOCESAR REYES SPMLKW During your visit today, we recorded the following information about you: Pulse Blood pressure Weight 81/minute 143/60 77.6 kg Juliocesar Reyes PA-C 04/22/2023 3:33 PM Signed [facility] This is an in-person visit. DATE OF SERVICE: 04/22/2023 DATE OF LAST VISIT: 03/14/2022 SUBJECTIVE: HPI: Continues with neck pain and headaches. Patient describes headaches located at the back of his head (occipital region). He states that pain and headaches have worsened despite ongoing conservative management. He also describes electrical sensations in his neck. Pain is worsened with ROM without ability to find position of relief or improvement. He feels significant crepitus in cervical spine. Denies radiating arm pain, numbness, tingling, arm weakness, difficulty walking, dexterity issues, significant balance instability or bowel / bladder dysfunction. CMT: -Tylenol -Muscle Relaxants (Zanaflex) -Home Exercise Program (Current) --Provided patient with Home Exercise Program targeted at Cervical Spine at our last office visit (03/2022) --He performs stretching and strengthening exercises 3-4 times weekly -Previously trialed gabapentin (did not tolerate - swelling) PAIN EVALUATION 04/22/2023 1511 Pain Level: 6 Pain Location: Neck Description: Aching;Sharp Duration Units: Years Frequency: Continuous AMBULATORY STATUS: Independent Community Distances ANTIPLATELET OR ANTICOAGULATION STATUS: No PREVIOUS CONSERVATIVE TREATMENTS: SEE HPI REVIEW OF SYSTEMS: GENERAL: No weight loss or malaise MUSCULOSKELETAL: SEE HPI NEURO: No history of headaches, syncope, paralysis, seizures or tremors MEDICATIONS: naltrexone 50 mg tabletTake 1 tablet by mouth once daily.Disp: 30 tabletRfl: 5 testosterone cypionate (DEPO-TESTOSTERONE) 200 mg/mL injectionInject 1 mL intramuscularly every 2 weeks for 180 days.Disp: 2 mLRfl: 5 tiZANidine (ZANAFLEX) 4 mg tabletTake 1 tablet by mouth every 8 hours as needed.Disp: 90 tabletRfl: 1 lactulose 20 gram/30 mL [id number] mL by ORAL/FEEDING TUBE route three times daily.Disp: 2700 mLRfl: 0 sildenafil (VIAGRA) 100 mg tabletTake 1 tablet by mouth as needed. 30-60 minutes before sexual intercourseDisp: 15 tabletRfl: 5 lisinopril (ZESTRIL) 40 mg tabletTake 1 tablet by mouth once daily.Disp: 90 tabletRfl: 3 hydroCHLOROthiazide 12.5 mg capsuleTake 1 capsule by mouth once daily.Disp: 30 capsuleRfl: 5 buPROPion XL (WELLBUTRIN XL) 300 mg 24 hr tabletTake 1 tablet by mouth once daily.Disp: 30 tabletRfl: 11 magnesium oxide (MAG-OX) 400 mg (241.3 mg magnesium) tabletTake 1 tablet by mouth once daily.Disp: 90 tabletRfl: 3 thiamine (VITAMIN B1) 100 mg tablet1 tablet by ORAL/FEEDING TUBE route three times daily.Disp: 270 tabletRfl: 3 docusate sodium (COLACE) 100 mg capsuleTake 1 capsule by mouth once daily.Disp: 90 capsuleRfl: [address] (PROTONIX) 40 mg tabletTake 1 tablet by mouth once daily.Disp: 90 tabletRfl: 3 therapeutic multivitamin-minerals (THERA M PLUS, FERROUS FUMARAT,) 9 mg iron-400 mcg tabletTake 1 tablet by mouth once daily.Disp: 30 tabletRfl: 2 ciprofloxacin HCl (CIPRO) 500 mg tabletTake 1 tablet by mouth twice daily.Disp: 6 tabletRfl: 0 (Patient not taking: Reported on 04/16/2023) Patient Entered Questionnaires PROMIS Score Percentiles PROMIS Global Health Scale 09/30/2020 04/27/2022 07/04/2022 Physical Health Percentile 78 53 53 Mental Health Percentile 34 26* 26* Percentiles provide an indication of how the patient's score ranks in relation to the general population. Higher percentile rankings indicate better function/quality of life. 50th percentile is the average of the general population and indicates half of respondents had a worse score. Depression Screening: PHQ-9 05/31/2015 07/04/2022 Score 1 0 PHQ-9 Self-harm Question 05/31/2015 07/04/2022 Thoughts that you would be better off , or of hurting yourself in some way 0 0 PHQ-9 Self-Harm (Item 9) response options: 0 Not at all 1 Several days 2 More than half the days 3 Nearly every day PHQ-9 Levels: 0-4 No to mild depression 5-9 Mild depression 10-14 Moderate depression 15-19 Moderately severe depression 20-27 Severe depression OBJECTIVE: PHYSICAL EXAM: BP 143/60 Pulse 81 Wt 171 lb (77.6kg) GENERAL APPEARANCE: Well nourished, well developed, and no apparent distress. NEURO PSYCH: Patient oriented to person, place, and time. Mood pleasant. Benign affect. MUSCULOSKELETAL VISUAL INSPECTION CERVICAL: WNL THORACIC: WNL LUMBAR: WNL MOTOR: 5/5 in all muscle groups. SENSORY: Normal sensory exam GAIT: Normal. DATA REVIEW:Diagnostic tests reviewed for today's visit, films/specimens were personally reviewe (more content not included)... Normal [facility] CBC panel Auto (Bld)on 04-16 Erythrocyte distribution width (RBC) [Ratio] 14.4 % 11.5 - 15.0 % [facility] Hematocrit (Bld) [Volume fraction] 36.3 % Low 39.0 - 51.0 % [facility] Hemoglobin (Bld) [Mass/Vol] 11.9 g/dL Low 13.0 - 17.0 g/dL [facility] MCH (RBC) [Entitic mass] 32.0 pg 26.0 - 34.0 pg [facility] MCHC (RBC) [Mass/Vol] 32.8 g/dL 30.5 - 36.0 g/dL [facility] MCV (RBC) [Entitic vol] 97.6 fL 80.0 - 100.0 fL [facility] Nucleated RBC (Bld) [#/Vol] <0.01 k/uL [facility] Platelet mean volume (Bld) [Entitic vol] 9.0 fL 9.0 - 12.7 fL [facility] Platelets (Bld) [#/Vol] 117 10*3/uL Low 150 - 400 k/uL [facility] RBC (Bld) [#/Vol] 3.72 10*6/uL Low 4.20 - 6.0 0 m/uL [facility] WBC (Bld) [#/Vol] 4.17 10*3/uL 3.70 - 11. 00 k/uL [facility] Erythrocyte distribution width (RBC) [Ratio] 14.4 % Normal 11.5-15.0 [facility] Comment on above: Order Comment: Speci men Type: BLOOD SPECIMENOrdering Facility: [facility] Address: [address] [place] [address] Performed By: #### 5 8410-2 ####[facility] LWIA [id number] [address] STATES OF [facility] Hematocrit (Bld) [Volume fraction] 36.3 % Low 39.0-51.0 [facility] Comment on above: Order Comment: Speci men Type: BLOOD SPECIMENOrdering Facility: [facility] Address: [address] [place] [address] Performed By: #### 5 8410-2 ####[facility] LWIA [id number] [address] [place] Hemoglobin (Bld) [Mass/Vol] 11.9 g/dL Low 13.0-17.0 [facility] Comment on above: Order Comment: Speci men Type: BLOOD SPECIMENOrdering Facility: [facility] Address: [address] [place] [address] Performed By: #### 5 8410-2 ####[facility] LWCLIA [id number] [address] [place] MCH (RBC) [Entitic mass] 32.0 pg Normal 26.0-34.0 [facility] Comment on above: Order Comment: Speci men Type: BLOOD SPECIMENOrdering Facility: [facility] Address: [address] [place] [address] Performed By: #### 5 8410-2 ####[facility] LWMS [id number] [address] MCHC (RBC) [Mass/Vol] 32.8 g/dL Normal 30.5-36.0 [facility] Comment on above: Order Comment: Speci men Type: BLOOD SPECIMENOrdering Facility: [facility] Address: [address] [place] [address] Performed By: #### 5 8410-2 ####[facility] MEDICAL CENTERIA [id number] [address] MCV (RBC) [Entitic vol] 97.6 fL Normal 80.0-100.0 [facility] Comment on above: Order Comment: Speci men Type: BLOOD SPECIMENOrdering Facility: [facility] Address: [address] [place] [address] Performed By: #### 5 8410-2 ####[facility] MEDICAL CENTERIA [id number] [address] Nucleated RBC (Bld) [#/Vol] 10*3/uL Normal <0.01 [facility] Comment on above: Order Comment: Speci men Type: BLOOD SPECIMENOrdering Facility: [facility] Address: [address] [place] [address] Performed By: #### 5 8410-2 ####[facility] LWCLIA [id number] [address] STATES [facility] Platelet mean volume (Bld) [Entitic vol] 9.0 fL Normal 9.0-12.7 [facility] Comment on above: Order Comment: Speci men Type: BLOOD SPECIMENOrdering Facility: [facility] Address: [address] [place] [address] Performed By: #### 5 8410-2 ####[facility] LWCLIA [id number] [address] [place] Platelets (Bld) [#/Vol] 117 10*3/uL Low 150-400 [facility] Comment on above: Order Comment: Speci men Type: BLOOD SPECIMENOrdering Facility: [facility] Address: [address] [place] [address] Performed By: #### 5 8410-2 ####[facility] LWCLIA [id number] [address] OF [facility] RBC (Bld) [#/Vol] 3.72 10*6/uL Low 4.20-6.00 [facility] Comment on above: Order Comment: Speci men Type: BLOOD SPECIMENOrdering Facility: [facility] Address: [address] [place] [address] Performed By: #### 5 8410-2 ####[facility] LWCLIA [id number] [address] OF [facility] WBC (Bld) [#/Vol] 4.17 10*3/uL Normal 3.70-11.00 [facility] Comment on above: Order Comment: Speci men Type: BLOOD SPECIMENOrdering Facility: [facility] Address: [address] [place] [address] Performed By: #### 5 8410-2 ####[facility] LWCLIA [id number] [address] OF [facility] CNOVon 04-16-2023 CNOV Office Visit (INTMLK ) GALINDO SNOW ([id number]) 1970 M Date Time Provider Department 04/16/23 9:00 AM TERESE JACK INTMLK During your visit today, we recorded the following information about you: Pulse Respiration Blood pressure Weight 67/minute 18/minute 136/75 77.6 kg Terese Jack MD 04/16/2023 6:35 PM Signed Transitional Care Management TCM Eligibility Documentation The following information was gathered during the initial Patient Outreach Encounter. Date of Outreach: 04/12/2023 04/05/2023 Outreach Attempt 1: Contact Not Made Contact Not Made Outreach Attempt 2: Contact Not Made Contact Made Date of Discharge 04/11/2023 04/04/2023 Some recent data might be hidden Provider Documentation Galindo Snow is a 52 year old male here today for a follow up from recent hospitalization. I have reviewed the patient's hospital course including discharge summary, discharge medications , and follow up needs with the patient and any family members present at today's visit. HPI Patient was hospitalized with an upper GI bleed in the setting of relapse of alcoholism. Remains sober since he has been out. Is not in any kind of support groups or psychology. Is not willing to go to any support groups. Is willing to try a medication to help with alcohol cessation. Patient would like to get intramuscular injection today for testosterone. Is overdue for injection. Would like to consider getting back on every 2 weeks dosage as the every 3 weeks dosage was leading to lower energy levels and more fatigue. Continues to have chronic neck pain. PHYSICAL EXAMINATION BP 136/75 Pulse 67 Resp 18 Wt 77.6 kg (171 lb 1.6 oz) BMI 24.55 kg/m? GENERAL: well appearing, alert, in no acute distress HEART: regular rate and rhythm. No murmur, rubs or gallops. LUNGS: clear to auscultation, no wheezing, rhonchi, or crackles ABDOMEN: soft, non-tender, non-distended, no masses or organomegaly EXTREMITIES: no lower extremity edema. No skin discoloration. ASSESSMENT/PLAN: 1. Moderate alcohol use disorder, in early remission (HCC) - ICD9: 303.93, ICD10: F10.21 (primary diagnosis) Shared decision made to start naltrexone. Patient counseled on pros/cons/side effects of medication. Declined other social insurance administrator for assistance with sobriety. - NALTREXONE 50 MG TABLET 2. Hospital discharge follow-up - ICD9: V67.59, ICD10: Z09 - I have reviewed the patient record including associated test results during the last hospitalization Yes - I have reviewed Lab tests Yes - I have reviewed Radiology tests Yes - I have reviewed Assessment/Plan with patient/family member Yes 3. Hypogonadism in male - ICD9: 257.2, ICD10: E29.1 Okay to get injection today. Okay to increase frequency to every 2 weeks for intramuscular injection. We will continue to monitor levels and symptoms. - TESTOSTERONE CYPIONATE 200 MG/ML INTRAMUSCULAR OIL - TESTOSTERONE CYPIONATE 200 MG/ML INTRAMUSCULAR OIL - COMP METABOLIC PANEL - CBC - TESTOSTERONE TOTAL - TESTOSTERONE CYPIONATE 200 MG/ML INTRAMUSCULAR OIL 4. Chronic neck pain - ICD9: 723.1, 338.29, ICD10: M54.2, G89.29 - CONSULT TO PHYSICAL THERAPY Return to clinic in 2 months Luke Jack MD Allergies As of Date: 04/16/2023 Noted Allergy Reaction DILAUDID (HYDROMORPHONE (BULK)) 11/03/2014 1 - Mental Status Change 9 - Itching Date Reviewed: 04/16/2023 Reviewed by: Myla Mazariegos MA - Fully Assessed Reason for Visit: Hospital Follow Up [177] Primary Visit Diagnosis:Moderate alcohol use disorder, in early remission (HCC) [F10.21] Other Visit Diagnoses:Hospital discharge follow-up [Z09] Hypogonadism in male [E29.1] Chronic neck pain [M54.2, G89.29] Order(s):naltrexone 50 mg tabletTake 1 tablet by mouth once daily.Disp: 30 tabletRfl: 5 testosterone cypionate (DEPO-TESTOSTERONE) 200 mg/mL injectionInject 1 mL intramuscularly every 2 weeks for 180 days.Disp: 2 mLRfl: 5 CONSULT TO PHYSICAL THERAPY [9032] Order #: [id number]: 1 FUTURE COMP METABOLIC PANEL [SQCMP] Order #: [id number] FUTURE CBC [SQCBC] Order #: [id number] FUTURE TESTOSTERONE TOTAL [SQTESTO] Order #: [id number] FUTURE testosterone cypionate 200 mg injection (DEPO-TESTOSTERONE)Disp: Rfl: Prescriptions as of 04/16/2023 - naltrexone 50 mg tablet Take 1 tablet by mouth once daily. - testosterone cypionate (DEPO-TESTOSTERONE) 200 mg/mL injection Inject 1 mL intramuscularly every 2 weeks for 180 days. - tiZANidine (ZANAFLEX) 4 mg tablet Take 1 tablet by mouth every 8 hours as needed. - ciprofloxacin HCl (CIPRO) 500 mg tablet Take 1 tablet by mouth twice daily. - lactulose 20 gram/30 mL solution 30 mL by ORAL/FEEDING TUBE route three times daily. - sildenafil (VIAGRA) 100 mg tablet Take 1 tablet by mouth as needed. 30-60 minutes before sexual intercourse - lisinopril (ZESTRIL) 40 mg tablet Take 1 (more content not included)... Normal [facility] Comprehensive metabolic 2000 panelon 04-16-2023 Albumin [Mass/Vol] 4.5 g/dL 3.9 - 4.9 g/dL [facility] ALP [Catalytic activity/Vol] 143 U/L High 38 - 113 U/L [facility] ALT [Catalytic activity/Vol] 30 U/L 10 - 54 U/L [facility] Anion gap [Moles/Vol] 11 mmol/L 9 - 18 mmol/L [facility] AST [Catalytic activity/Vol] 51 U/L High 14 - 40 U/L [facility] Bilirubin [Mass/Vol] 0.7 mg/dL 0.2 - 1.3 mg/dL [facility] Calcium [Mass/Vol] 9.5 mg/dL 8.5 - 10. 2 mg/dL [facility] Chloride [Moles/Vol] 103 mmol/L 97 - 105 mmol/L [facility] CO2 [Moles/Vol] 27 mmol/L 22 - 30 mmol/L [facility] Creatinine [Mass/Vol] 0.89 mg/dL 0.73 - 1.22 mg/dL [facility] Estimated Glomerular Filtration Rate 102 mL/min/1.73m >=60 mL/min/1.73m [facility] Glucose [Mass/Vol] 96 mg/dL 74 - 99 mg/dL [facility] Potassium [Moles/Vol] 4.9 mmol/L 3.7 - 5.1 mmol/L [facility] Protein [Mass/Vol] 7.1 g/dL 6.3 - 8.0 g/dL [facility] Sodium [Moles/Vol] 141 mmol/L 136 - 144 mmol/L [facility] Urea nitrogen [Mass/Vol] 9 mg/dL 9 - 24 mg/dL [facility] Albumin [Mass/Vol] 4.5 g/dL Normal 3.9-4.9 [facility] Comment on above: Order Comment: Speci men Type: BLOOD SPECIMENOrdering Facility: [facility] Address: [address] [place] [phone] Performed By: #### 2 4323-8 ####[facility] LWCLIA [id number] [address] STATES OF [facility] ALP [Catalytic activity/Vol] 143 U/L High 38-113 [facility] Comment on above: Order Comment: Speci men Type: BLOOD SPECIMENOrdering Facility: [facility] Address: [address] [place] [address] Performed By: #### 2 4323-8 ####[facility] LWCLIA [id number] [address] [place] ALT [Catalytic activity/Vol] 30 U/L Normal 10-54 [facility] Comment on above: Order Comment: Speci men Type: BLOOD SPECIMENOrdering Facility: [facility] Address: [address] [place] [address] Performed By: #### 2 4323-8 ####[facility] LWIA [id number] [address] Anion gap [Moles/Vol] 11 mmol/L Normal 9-18 [facility] Comment on above: Order Comment: Speci men Type: BLOOD SPECIMENOrdering Facility: [facility] Address: [address] [place] [address] Performed By: #### 2 4323-8 ####[facility] LWCLIA [id number] [address] AST [Catalytic activity/Vol] 51 U/L High 14-40 [facility] Comment on above: Order Comment: Speci men Type: BLOOD SPECIMENOrdering Facility: [facility] Address: [address] [place] [address] Performed By: #### 2 4323-8 ####[facility] LWCLIA [id number] [address] [place] Bilirubin [Mass/Vol] 0.7 mg/dL Normal 0.2-1.3 [facility] Comment on above: Order Comment: Speci men Type: BLOOD SPECIMENOrdering Facility: [facility] Address: [address] [address] Performed By: #### 2 4323-8 ####[facility] LWCLIA [id number] [address] STATES OF [facility] Calcium [Mass/Vol] 9.5 mg/dL Normal 8.5-10.2 [facility] Comment on above: Order Comment: Speci men Type: BLOOD SPECIMENOrdering Facility: [facility] Address: [address] [address] Performed By: #### 2 4323-8 ####[facility] LWCLIA [id number] [place] [address] [place] Chloride [Moles/Vol] 103 mmol/L Normal 97-105 [facility] Comment on above: Order Comment: Speci men Type: BLOOD SPECIMENOrdering Facility: [facility] Address: [address] [address] Performed By: #### 2 4323-8 ####[facility] LWCLIA [id number] [place] [address] [place] [facility] [place] CO2 [Moles/Vol] 27 mmol/L Normal 22-30 [facility] Comment on above: Order Comment: Speci men Type: BLOOD SPECIMENOrdering Facility: [facility] Address: [address] [address] Performed By: #### 2 4323-8 ####[facility] LWCLIA [id number] [place] [address] [place] Creatinine [Mass/Vol] 0.89 mg/dL Normal 0.73-1.22 [facility] Comment on above: Order Comment: Speci men Type: BLOOD SPECIMENOrdering Facility: [facility] Address: [address] [address] Performed By: #### 2 4323-8 ####[facility] LWCLIA [id number] [place] [address] [place] Creatinine and Glomerular filtration rate.predicted panel (S/P/Bld) 102 mL/min/1.73m??? Normal >=60 [facility] Comment on above: Order Comment: Berna champion Type: BLOOD SPECIMENOrdering Facility: [facility] Address: [address] [place] [address] Result Comment: Puja mated Glomerular Filtration Rate (eGFR) is calculated using the 2020 CKD-EPI creatinine equation. This equation utilizes serum creatinine, sex, and age as parameters. The creatinine assay has traceable calibration to isotope dilution-mass spectrometry. Refer to KDIGO guidelines for clinical interpretation. In patients with unstable renal function, e.g. those with acute kidney injury, the eGFR may not accurately reflect actual GFR. Performed By: #### 2 4323-8 ####[facility] LWCLIA [id number] [place] [address] [place] Glucose [Mass/Vol] 96 mg/dL Normal 74-99 [facility] Comment on above: Order Comment: Berna champion Type: BLOOD SPECIMENOrdering Facility: [facility] Address: [address] [place] [address] Result Comment: The [place] [employer] (ADA) provides guidance for cutoff values for fasting glucose and random glucose. The ADA defines fasting as no caloric intake for at least 8 hours. Fasting plasma glucose results between 100 to 125 mg/dL indicate increased risk for diabetes (prediabetes). Fasting plasma glucose results greater than or equal to 126 mg/dL meet the criteria for diagnosis of diabetes. In the absence of unequivocal hyperglycemia, results should be confirmed by repeat testing. In a patient with classic symptoms of hyperglycemia or hyperglycemic crisis, random plasma glucose results greater than or equal to 200 mg/dL meet the criteria for diagnosis of diabetes. Reference: Standards of Medical Care in Diabetes 2016, [place] [employer]. Diabetes Care. 2016.39(Suppl 1). Performed By: #### 2 4323-8 ####[facility]NEIL[facility] LWCLIA [id number] [place] [address] [place] Potassium [Moles/Vol] 4.9 mmol/L Normal 3.7-5.1 [facility] Comment on above: Order Comment: Speci men Type: BLOOD SPECIMENOrdering Facility: [facility] Address: [address] [address] Performed By: #### 2 4323-8 ####[facility] LWCLIA [id number] [place] [address] [place] Protein [Mass/Vol] 7.1 g/dL Normal 6.3-8.0 [facility] Comment on above: Order Comment: Speci men Type: BLOOD SPECIMENOrdering Facility: [facility] Address: [address] [address] Performed By: #### 2 4323-8 ####[facility] LWCLIA [id number] [place] [address] [place] Sodium [Moles/Vol] 141 mmol/L Normal 136-144 [facility] Comment on above: Order Comment: Speci men Type: BLOOD SPECIMENOrdering Facility: [facility] Address: [address] [place] [address] Performed By: #### 2 4323-8 ####[facility] LWCLIA [id number] [place] [address] [place] Urea nitrogen [Mass/Vol] 9 mg/dL Normal 9-24 [facility] Comment on above: Order Comment: Speci men Type: BLOOD SPECIMENOrdering Facility: [facility] Address: [address] [place] [address] Performed By: #### 2 4323-8 ####[facility] LWCLIA [id number] [place] [address] [place] TESTOSTERONE TOTALon 023 Testosterone [Mass/Vol] 540 ng/dL 193 - 824 ng/dL [facility] Testost SerPl-mCncon 023 Testosterone [Mass/Vol] 540 ng/dL Normal 193-824 [facility] Comment on above: Order Comment: Speci men Type: BLOOD SPECIMENOrdering Facility: [facility] Address: [address] [address] Result Comment: A te stosterone level in the 193-320 ng/dL range with associated clinical symptoms is considered low and may indicate hypogonadism (from [facility] 2010 363:123-135). Results >320 ng/dL are considered normal. Performed By: #### 2 986-8 ####[facility] LABCLIA [id number] [address] [place] CASE MGT INIT ASSESon 2022 CASE MGT INIT ASSES Normal [facility] CBC panel Auto (Bld)on 04-11 Erythrocyte distribution width (RBC) [Ratio] 13.9 % Normal 11.5-15.0 [facility] Comment on above: Order Comment: Speci men Type: BLOOD SPECIMENOrdering Facility: [facility] Address: [address] [address] Performed By: #### 5 8410-2 ####[facility]ATORYCLIA [id number] [address] [place] Hematocrit (Bld) [Volume fraction] 30.7 % Low 39.0-51.0 [facility] Comment on above: Order Comment: Speci men Type: BLOOD SPECIMENOrdering Facility: [facility] Address: [address] [address] Performed By: #### 5 8410-2 ####[facility]ORATORYCLIA [id number] [place] [id number] [place] Hemoglobin (Bld) [Mass/Vol] 10.0 g/dL Low 13.0-17.0 [facility] Comment on above: Order Comment: Speci men Type: BLOOD SPECIMENOrdering Facility: [facility] Address: [address] [address] Performed By: #### 5 8410-2 ####[facility]ATORYCLIA [id number] [address] [place] MCH (RBC) [Entitic mass] 31.5 pg Normal 26.0-34.0 [facility] Comment on above: Order Comment: Speci men Type: BLOOD SPECIMENOrdering Facility: [facility] Address: [address] [address] Performed By: #### 5 8410-2 ####[facility]ATORYCLIA [id number] [address] STATES [facility] MCHC (RBC) [Mass/Vol] 32.6 g/dL Normal 30.5-36.0 [facility] Comment on above: Order Comment: Speci men Type: BLOOD SPECIMENOrdering Facility: [facility] Address: [address] [address] Performed By: #### 5 8410-2 ####[facility] LABORATORYCLIA [id number] [address] [place] MCV (RBC) [Entitic vol] 96.8 fL Normal 80.0-100.0 [facility] Comment on above: Order Comment: Speci men Type: BLOOD SPECIMENOrdering Facility: [facility] Address: [address] [place] [address] Performed By: #### 5 8410-2 ####[facility] LABORATORYCLIA [id number] [place] [address] [place] Nucleated RBC (Bld) [#/Vol] 10*3/uL Normal <0.01 [facility] Comment on above: Order Comment: Speci men Type: BLOOD SPECIMENOrdering Facility: [facility] Address: [address] [place] [address] Performed By: #### 5 8410-2 ####[facility] LABORATORYCLIA [id number] [address] [place] Platelet mean volume (Bld) [Entitic vol] 9.1 fL Normal 9.0-12.7 [facility] Comment on above: Order Comment: Speci men Type: BLOOD SPECIMENOrdering Facility: [facility] Address: [address] [place] [address] Performed By: #### 5 8410-2 ####[facility] LABORATORYCLIA [id number] [place] [address] [place] Platelets (Bld) [#/Vol] 76 10*3/uL Low 150-400 [facility] Comment on above: Order Comment: Speci men Type: BLOOD SPECIMENOrdering Facility: [facility] Address: [address] [place] [address] Result Comment: No c lot detected. Performed By: #### 5 8410-2 ####[facility]ORATORYCLIA [id number] [place] [address] [place] RBC (Bld) [#/Vol] 3.17 10*6/uL Low 4.20-6.00 [facility] Comment on above: Order Comment: Speci men Type: BLOOD SPECIMENOrdering Facility: [facility] Address: [address] [place] [address] Performed By: #### 5 8410-2 ####[facility]ORATORYCLIA [id number] [address] STATES OF [facility] WBC (Bld) [#/Vol] 2.50 10*3/uL Low 3.70-11.00 [facility] Comment on above: Order Comment: Speci men Type: BLOOD SPECIMENOrdering Facility: [facility] Address: [address] [place] [address] Performed By: #### 5 8410-2 ####[facility]ORATORYCLIA [id number] [address] Erythrocyte distribution width (RBC) [Ratio] 14.1 % Normal 11.5-15.0 [facility] Comment on above: Order Comment: Speci men Type: BLOOD SPECIMENOrdering Facility: [facility] Address: [address] [place] [address] Performed By: #### 5 8410-2 ####[facility]ORATORYCLIA [id number] [address] Hematocrit (Bld) [Volume fraction] 29.7 % Low 39.0-51.0 [facility] Comment on above: Order Comment: Speci men Type: BLOOD SPECIMENOrdering Facility: [facility] Address: [address] [place] [address] Performed By: #### 5 8410-2 ####[facility] LABORATORYCLIA [id number] [address] [place] Hemoglobin (Bld) [Mass/Vol] 9.9 g/dL Low 13.0-17.0 [facility] Comment on above: Order Comment: Speci men Type: BLOOD SPECIMENOrdering Facility: [facility] Address: [address] [place] [address] Performed By: #### 5 8410-2 ####[facility] LABORATORYCLIA [id number] [address] [place] MCH (RBC) [Entitic mass] 31.9 pg Normal 26.0-34.0 [facility] Comment on above: Order Comment: Speci men Type: BLOOD SPECIMENOrdering Facility: [facility] Address: [address] [place] [address] Performed By: #### 5 8410-2 ####[facility] LABORATORYCLIA [id number] [address] STATES [facility] MCHC (RBC) [Mass/Vol] 33.3 g/dL Normal 30.5-36.0 [facility] Comment on above: Order Comment: Speci men Type: BLOOD SPECIMENOrdering Facility: [facility] Address: [address] [place] [address] Performed By: #### 5 8410-2 ####[facility] LABORATORYCLIA [id number] [address] STATES [facility] MCV (RBC) [Entitic vol] 95.8 fL Normal 80.0-100.0 [facility] Comment on above: Order Comment: Speci men Type: BLOOD SPECIMENOrdering Facility: [facility] Address: [address] [place] [address] Performed By: #### 5 8410-2 ####[facility] LABORATORYCLIA [id number] [address] [place] Nucleated RBC (Bld) [#/Vol] 10*3/uL Normal <0.01 [facility] Comment on above: Order Comment: Speci men Type: BLOOD SPECIMENOrdering Facility: [facility] Address: [address] [address] Performed By: #### 5 8410-2 ####[facility]ORATORYCLIA [id number] [place] [id number] [place] Platelet mean volume (Bld) [Entitic vol] 9.7 fL Normal 9.0-12.7 [facility] Comment on above: Order Comment: Speci men Type: BLOOD SPECIMENOrdering Facility: [facility] Address: [address] [address] Performed By: #### 5 8410-2 ####[facility]ORATORYCLIA [id number] [place] [address] [place] Platelets (Bld) [#/Vol] 91 10*3/uL Low 150-400 [facility] Comment on above: Order Comment: Speci men Type: BLOOD SPECIMENOrdering Facility: [facility] Address: [address] [place] [address] Result Comment: No c lot detected. Performed By: #### 5 8410-2 ####[facility] LABORATORYCLIA [id number] [place] [id number] [place] RBC (Bld) [#/Vol] 3.10 10*6/uL Low 4.20-6.00 [facility] Comment on above: Order Comment: Speci men Type: BLOOD SPECIMENOrdering Facility: [facility] Address: [address] [address] Performed By: #### 5 8410-2 ####[facility]ORATORYCLIA [id number] [place] [address] [place] WBC (Bld) [#/Vol] 2.72 10*3/uL Low 3.70-11.00 [facility] Comment on above: Order Comment: Speci men Type: BLOOD SPECIMENOrdering Facility: [facility] Address: [address] [place] [address] Performed By: #### 5 8410-2 ####[facility]ORATORYCLIA [id number] [place] [id number] [place] [facility] CNDSon 04-11-2023 CNDS Normal [facility] CNPNon 04-11-2023 CNPN Telephone (INTLKB) ELVIRAGALINDO ([id number]) 1970 M Date Time Provider Department 04/11/23 TERESE JACK INTLKB During your visit today, we recorded the following information about you: Ashley Abreu RN 04/11/2023 4:25 PM Addendum Please provide an order for testerone injection for upcoming nurse visit on 04/22/23. Thank you Terese Jack MD 04/12/2023 1:02 PM Signed Done! Terese Jack MD 04/12/2023 1:02 PM Signed Addended by: TERESE JACK on: 04/12/2023 01:02 PM Modules accepted: Orders Allergies As of Date: 04/11/2023 Noted Allergy Reaction DILAUDID (HYDROMORPHONE (BULK)) 11/03/2014 1 - Mental Status Change 9 - Itching Date Reviewed: 04/11/2023 Reviewed by: Myla Sen RN - Fully Assessed Reason for Visit: Orders [681] Visit Diagnosis:Hypogonadism in male [E29.1] Order(s):testosterone cypionate (DEPO-TESTOSTERONE) 200 mg/mL injectionInject 1 mL intramuscularly every 3 weeks for 90 days.Disp: 2 mLRfl: 1 testosterone cypionate 200 mg injection (DEPO-TESTOSTERONE)Disp: Rfl: Prescriptions as of 04/12/2023 - tiZANidine (ZANAFLEX) 4 mg tablet Take 1 tablet by mouth every 8 hours as needed. - testosterone cypionate (DEPO-TESTOSTERONE) 200 mg/mL injection Inject 1 mL intramuscularly every 3 weeks for 90 days. - ciprofloxacin HCl (CIPRO) 500 mg tablet Take 1 tablet by mouth twice daily. - lactulose 20 gram/30 mL solution 30 mL by ORAL/FEEDING TUBE route three times daily. - sildenafil (VIAGRA) 100 mg tablet Take 1 tablet by mouth as needed. 30-60 minutes before sexual intercourse - lisinopril (ZESTRIL) 40 mg tablet Take 1 tablet by mouth once daily. - hydroCHLOROthiazide 12.5 mg capsule Take 1 capsule by mouth once daily. - buPROPion XL (WELLBUTRIN XL) 300 mg 24 hr tablet Take 1 tablet by mouth once daily. - magnesium oxide (MAG-OX) 400 mg (241.3 mg magnesium) tablet Take 1 tablet by mouth once daily. - thiamine (VITAMIN B1) 100 mg tablet 1 tablet by ORAL/FEEDING TUBE route three times daily. - docusate sodium (COLACE) 100 mg capsule Take 1 capsule by mouth once daily. - pantoprazole DR (PROTONIX) 40 mg tablet Take 1 tablet by mouth once daily. - therapeutic multivitamin-minerals (THERA M PLUS, FERROUS FUMARAT,) 9 mg iron-400 mcg tablet Take 1 tablet by mouth once daily. Facility-Administered Medications as of 04/12/2023 - testosterone cypionate 200 mg injection (DEPO-TESTOSTERONE) Meds Comments as of 12/30/2019: Pt stopped taking medications about 2 weeks ago- restarted 12/27 Problem List As Of Date 04/11/2023 Noted Resolved Thrombocytopenia (HCC) [D69.6] 07/01/2013 Gastropathy [K31.9] Alcoholism (HCC) [F10.20] Gallstones [K80.20] PUD (peptic ulcer disease) [K27.9] GERD (gastroesophageal reflux disease) [K21.9] 11/03/2014 PTSD (post-traumatic stress disorder) [F43.10] 11/03/2014 Bilateral hand numbness [R20.0] 10/22/2016 Cervicalgia [M54.2] 10/22/2016 Chronic neck pain [M54.2, G89.29] 10/22/2016 Sprain of anterior talofibular ligament of righ*07/07/2017 Lateral epicondylitis of left elbow [M77.12] 11/11/2017 Arthralgia of right acromioclavicular joint [M2*04/21/2018 Anxiety [F41.9] 06/14/2018 GI bleed [K92.2] 12/30/2019 01/01/2020 Non compliance with medical treatment [Z91.199] 12/30/2019 Abdominal pain [R10.9] 08/29/2020 Alcoholic cirrhosis of liver without ascites (H*03/01/2022 History of esophageal varices [Z87.19] 03/01/2022 Hypogonadism in male [E29.1] 05/09/2022 Essential hypertension [I10] 08/10/2022 Acute upper GI bleeding [K92.2] 03/30/2023 04/04/2023 Bleeding esophageal varices (HCC) [I85.01] 03/31/2023 04/04/2023 Hematemesis with nausea [K92.0] 03/31/2023 04/11/2023 Alcohol abuse [F10.10] 03/31/2023 Alcohol withdrawal delirium (HCC) [F10.931] 03/31/2023 Upper GI bleed [K92.2] 04/10/2023 04/11/2023 LLQ abdominal pain [R10.32] 04/10/2023 04/11/2023 Hematemesis without nausea [K92.0] 04/10/2023 04/11/2023 Nicotine use disorder, F17.2 [F17.200] 04/10/2023 Prescriptions ordered this encounter Disp Refills Start End TESTOSTERONE CYPIONATE 200 MG/ML INT* 2 mL 1 04/12/2023 07/11/2023 Route: INTRAMUSCULA Sig: Inject 1 mL intramuscularly every 3 weeks for 90 days. TESTOSTERONE CYPIONATE 200 MG/ML INT* 04/12/2023 02/21/2024 Route: INTRAMUSCULA Medications Discontinued During This Encounter Prescriptions - testosterone cypionate (DEPO-TESTOSTERONE) 200 mg/mL injection (Discontinued) Inject 1 mL intramuscularly every 3 weeks for 90 days. Encounter Status:Closed by ASHLEY ABREU on 04/11/23 Normal [facility] metabolic 2000 panelon 04-11-2023 Albumin [Mass/Vol] 3.7 g/dL Low 3.9-4.9 [facility] Comment on above: Order Comment: Speci men Type: BLOOD SPECIMENOrdering Facility: [facility] Address: [address] [address] Performed By: #### 2 4323-8 ####[facility] LABORATORYCLIA [id number] [place] [address] [place] ALP [Catalytic activity/Vol] 116 U/L High 38-113 [facility] Comment on above: Order Comment: Speci men Type: BLOOD SPECIMENOrdering Facility: [facility] Address: [address] [address] Performed By: #### 2 4323-8 ####[facility] LABORATORYCLIA [id number] [place] [place] [address] [place] ALT [Catalytic activity/Vol] 27 U/L Normal 10-54 [facility] Comment on above: Order Comment: Speci men Type: BLOOD SPECIMENOrdering Facility: [facility] Address: [address] [place] [address] Performed By: #### 2 4323-8 ####[facility] LABORATORYCLIA [id number] [place] [address] [place] Anion gap [Moles/Vol] 8 mmol/L Low 9-18 [facility] Comment on above: Order Comment: Speci men Type: BLOOD SPECIMENOrdering Facility: [facility] Address: [address] [place] [address] Performed By: #### 2 4323-8 ####[facility] LABORATORYCLIA [id number] [address] [place] AST [Catalytic activity/Vol] 48 U/L High 14-40 [facility] Comment on above: Order Comment: Speci men Type: BLOOD SPECIMENOrdering Facility: [facility] Address: [address] [place] [address] Performed By: #### 2 4323-8 ####[facility] LABORATORYCLIA [id number] [place] [address] [place] Bilirubin [Mass/Vol] 0.6 mg/dL Normal 0.2-1.3 [facility] Comment on above: Order Comment: Speci men Type: BLOOD SPECIMENOrdering Facility: [facility] Address: [address] [address] Performed By: #### 2 4323-8 ####[facility] LABORATORYCLIA [id number] [place] [id number] [place] Calcium [Mass/Vol] 7.4 mg/dL Low 8.5-10.2 [facility] Comment on above: Order Comment: Speci men Type: BLOOD SPECIMENOrdering Facility: [facility] Address: [address] [address] Performed By: #### 2 4323-8 ####[facility] LABORATORYCLIA [id number] [place] [address] [place] Chloride [Moles/Vol] 105 mmol/L Normal 97-105 [facility] Comment on above: Order Comment: Speci men Type: BLOOD SPECIMENOrdering Facility: [facility] Address: [address] [address] Performed By: #### 2 4323-8 ####[facility] LABORATORYCLIA [id number] [place] [address] [place] CO2 [Moles/Vol] 25 mmol/L Normal 22-30 [facility] Comment on above: Order Comment: Speci men Type: BLOOD SPECIMENOrdering Facility: [facility] Address: [address] [place] [address] Performed By: #### 2 4323-8 ####[facility] LABORATORYCLIA [id number] [place] [address] [place] Creatinine [Mass/Vol] 0.88 mg/dL Normal 0.73-1.22 [facility] Comment on above: Order Comment: Speci men Type: BLOOD SPECIMENOrdering Facility: [facility] Address: [address] [place] [address] Performed By: #### 2 4323-8 ####[facility] LABORATORYCLIA [id number] [address] [place] Creatinine and Glomerular filtration rate.predicted panel (S/P/Bld) 102 mL/min/1.73m??? Normal >=60 [facility] Comment on above: Order Comment: Berna champion Type: BLOOD SPECIMENOrdering Facility: [facility] Address: [address] Result Comment: Puja mated Glomerular Filtration Rate (eGFR) is calculated using the 2020 CKD-EPI creatinine equation. This equation utilizes serum creatinine, sex, and age as parameters. The creatinine assay has traceable calibration to isotope dilution-mass spectrometry. Refer to KDIGO guidelines for clinical interpretation. In patients with unstable renal function, e.g. those with acute kidney injury, the eGFR may not accurately reflect actual GFR. Performed By: #### 2 4323-8 ####[facility] LABORATORYCLIA [id number] [place] [address] [place] Glucose [Mass/Vol] 141 mg/dL High 74-99 [facility] Comment on above: Order Comment: Berna champion Type: BLOOD SPECIMENOrdering Facility: [facility] Address: [address] [address] Result Comment: The [place] [employer] Association (ADA) provides guidance for cutoff values for fasting glucose and random glucose. The ADA defines fasting as no caloric intake for at least 8 hours. Fasting plasma glucose results between 100 to 125 mg/dL indicate increased risk for diabetes (prediabetes).Fasting plasma glucose results greater than or equal to 126 mg/dL meet the criteria for diagnosis of diabetes. In the absence of unequivocal hyperglycemia, results should be confirmed by repeat testing. In a patient with classic symptoms of hyperglycemia or hyperglycemic crisis, random plasma glucose results greater than or equal to 200 mg/dL meet the criteria for diagnosis of diabetes.Reference: Standards of Medical Care in Diabetes 2016, [place] [employer]. Diabetes Care. 2016.39(Suppl 1). Performed By: #### 2 4323-8 ####[facility] LABORATORYCLIA [id number] [place] [address] [place] Potassium [Moles/Vol] 4.3 mmol/L Normal 3.7-5.1 [facility] Comment on above: Order Comment: Berna champion Type: BLOOD SPECIMENOrdering Facility: [facility] Address: [address] Performed By: #### 2 4323-8 ####[facility] LABORATORYCLIA [id number] [place] [id number] [place] Protein [Mass/Vol] 6.1 g/dL Low 6.3-8.0 [facility] Comment on above: Order Comment: Speci men Type: BLOOD SPECIMENOrdering Facility: [facility] Address: [address] [place] [address] Performed By: #### 2 4323-8 ####[facility] LABORATORYCLIA [id number] [place] [id number] [place] Sodium [Moles/Vol] 138 mmol/L Normal 136-144 [facility] Comment on above: Order Comment: Speci men Type: BLOOD SPECIMENOrdering Facility: [facility] Address: [address] [place] [address] Performed By: #### 2 4323-8 ####[facility] LABORATORYCLIA [id number] [place] [address] [place] Urea nitrogen [Mass/Vol] 6 mg/dL Low 9-24 [facility] Comment on above: Order Comment: Speci men Type: BLOOD SPECIMENOrdering Facility: [facility] Address: [address] [place] [address] Performed By: #### 2 4323-8 ####[facility] LABORATORYCLIA [id number] [place] [id number] [facility] [place] ALLIED HEALTHon 04-10-2023 ALLIED HEALTH HNO ID: [id number] Author: Georgette Cullen RT(Soila) Service: Radiology Author Type: Floral Artist Type: Allied Health Filed: 04/10/2023 12:53 AM Note Text: Radiology Service Progress Note DATE OF SERVICE: April 10, 2023 TIME: 12:53 AM PATIENT IDENTITY VERIFICATION COMPLETED USING TWO (2) STANDARD IDENTIFIERS: Name and Date of confirmed by patient verbally and Name and Date of confirmed by identification band. FALL SCREENING: Has the patient had 2 falls in the last year or 1 fall with injury or currently using an Ambulatory Assistive Device (Walker, Cane, Wheelchair, Crutches, etc.)? No PATIENT GENDER DATA: Male PATIENT RELEVANT IMPLANT DATA REVIEWED: Not Applicable ALLERGIES: Reviewed and unchanged CONTRAST ALLERGY: NO. EXAM: CT -CONTRAST INDUCED NEPHROPATHY RISK FACTORS: Patient age > 60 years CREATININE: Creatinine Date Value Ref Range Status 04/09/2023 0.99 0.73 - 1.22 mg/dL Final 04/04/2023 0.90 0.73 - 1.22 mg/dL Final 04/03/2023 0.96 0.73 - 1.22 mg/dL Final Estimated Glomerular Filtration Rate Date Value Ref Range Status 04/09/2023 91 >=60 mL/min/1.73m? Final Comment: Estimated Glomerular Filtration Rate (eGFR) is calculated using the 2020 CKD-EPI creatinine equation. This equation utilizes serum creatinine, sex, and age as parameters. The creatinine assay has traceable calibration to isotope dilution-mass spectrometry. Refer to KDIGO guidelines for clinical interpretation. In patients with unstable renal function, e.g. those with acute kidney injury, the eGFR may not accurately reflect actual GFR. eGFR- Date Value Ref Range Status 02/09/2021 >60 >60 Final P.O.C.T. RESULTS: POC done: Yes, See Lab Tab April 10, 2023 TREATMENT: N/A PERIPHERAL IV DATA: Inpatient - refer to LDA documentation RADIOLOGY DEPARTMENT: CT; Exam(s) Completed: Abdomen/Pelvis SIGNATURE: RT Allan(R) PATIENT NAME: Galindo Snow DATE: April 10, 2023 TIME: 12:53 AM Normal [facility] ANES POSTPROC EVALon 023 ANES POSTPROC EVAL Normal [facility] ANES PRE-OPon 04-10-2023 ANES PRE-OP Normal [facility] CBC panel Auto (Bld)on 04-10 Erythrocyte distribution width (RBC) [Ratio] 14.1 % Normal 11.5-15.0 [facility] Comment on above: Order Comment: Speci men Type: BLOOD SPECIMENOrdering Facility: [facility] Address: [place] [address] Performed By: #### 5 8410-2 ####[facility] LABORATORYCLIA [id number] [address] [place] Hematocrit (Bld) [Volume fraction] 28.8 % Low 39.0-51.0 [facility] Comment on above: Order Comment: Speci men Type: BLOOD SPECIMENOrdering Facility: [facility] Address: [address] [place] [address] Performed By: #### 5 8410-2 ####[facility] LABORATORYCLIA [id number] [address] OF [facility] Hemoglobin (Bld) [Mass/Vol] 9.7 g/dL Low 13.0-17.0 [facility] Comment on above: Order Comment: Speci men Type: BLOOD SPECIMENOrdering Facility: [facility] Address: [address] [place] [address] Performed By: #### 5 8410-2 ####[facility] LABORATORYCLIA [id number] [address] [place] MCH (RBC) [Entitic mass] 31.8 pg Normal 26.0-34.0 [facility] Comment on above: Order Comment: Speci men Type: BLOOD SPECIMENOrdering Facility: [facility] Address: [address] [address] Performed By: #### 5 8410-2 ####[facility] LABORATORYCLIA [id number] [address] [place] MCHC (RBC) [Mass/Vol] 33.7 g/dL Normal 30.5-36.0 [facility] Comment on above: Order Comment: Speci men Type: BLOOD SPECIMENOrdering Facility: [facility] Address: [address] [place] [address] Performed By: #### 5 8410-2 ####[facility] LABORATORYCLIA [id number] [address] [place] MCV (RBC) [Entitic vol] 94.4 fL Normal 80.0-100.0 [facility] Comment on above: Order Comment: Speci men Type: BLOOD SPECIMENOrdering Facility: [facility] Address: [address] [place] [address] Performed By: #### 5 8410-2 ####[facility] LABORATORYCLIA [id number] [place] [id number] [place] Nucleated RBC (Bld) [#/Vol] 10*3/uL Normal <0.01 [facility] Comment on above: Order Comment: Speci men Type: BLOOD SPECIMENOrdering Facility: [facility] Address: [address] [place] [address] Performed By: #### 5 8410-2 ####[facility] LABORATORYCLIA [id number] [place] [id number] [place] Platelet mean volume (Bld) [Entitic vol] 9.2 fL Normal 9.0-12.7 [facility] Comment on above: Order Comment: Speci men Type: BLOOD SPECIMENOrdering Facility: [facility] Address: [address] [place] [address] Performed By: #### 5 8410-2 ####[facility] LABORATORYCLIA [id number] [place] [address] [place] Platelets (Bld) [#/Vol] 82 10*3/uL Low 150-400 [facility] Comment on above: Order Comment: Speci men Type: BLOOD SPECIMENOrdering Facility: [facility] Address: [address] [place] [address] Result Comment: Revi ewed.No clot detected. Performed By: #### 5 8410-2 ####[facility] LABORATORYCLIA [id number] [place] [address] [place] RBC (Bld) [#/Vol] 3.05 10*6/uL Low 4.20-6.00 [facility] Comment on above: Order Comment: Speci men Type: BLOOD SPECIMENOrdering Facility: [facility] Address: [address] [place] [address] Performed By: #### 5 8410-2 ####[facility] LABORATORYCLIA [id number] [place] [id number] [place] WBC (Bld) [#/Vol] 2.39 10*3/uL Low 3.70-11.00 [facility] Comment on above: Order Comment: Speci men Type: BLOOD SPECIMENOrdering Facility: [facility] Address: [address] [address] Performed By: #### 5 8410-2 ####[facility] LABORATORYCLIA [id number] [address] Erythrocyte distribution width (RBC) [Ratio] 14.2 % Normal 11.5-15.0 [facility] Comment on above: Order Comment: Speci men Type: BLOOD SPECIMENOrdering Facility: [facility] Address: [address] [address] Performed By: #### 5 8410-2 ####[facility] LABORATORYCLIA [id number] [address] [place] Hematocrit (Bld) [Volume fraction] 30.1 % Low 39.0-51.0 [facility] Comment on above: Order Comment: Speci men Type: BLOOD SPECIMENOrdering Facility: [facility] Address: [address] [place] [address] Performed By: #### 5 8410-2 ####[facility] LABORATORYCLIA [id number] [address] [place] Hemoglobin (Bld) [Mass/Vol] 9.9 g/dL Low 13.0-17.0 [facility] Comment on above: Order Comment: Speci men Type: BLOOD SPECIMENOrdering Facility: [facility] Address: [address] [place] [address] Performed By: #### 5 8410-2 ####[facility] LABORATORYCLIA [id number] [address] STATES [facility] MCH (RBC) [Entitic mass] 31.3 pg Normal 26.0-34.0 [facility] Comment on above: Order Comment: Speci men Type: BLOOD SPECIMENOrdering Facility: [facility] Address: [address] [place] [address] Performed By: #### 5 8410-2 ####[facility] LABORATORYCLIA [id number] [address] [place] MCHC (RBC) [Mass/Vol] 32.9 g/dL Normal 30.5-36.0 [facility] Comment on above: Order Comment: Speci men Type: BLOOD SPECIMENOrdering Facility: [facility] Address: [address] [address] Performed By: #### 5 8410-2 ####[facility] LABORATORYCLIA [id number] [address] [place] MCV (RBC) [Entitic vol] 95.3 fL Normal 80.0-100.0 [facility] Comment on above: Order Comment: Speci men Type: BLOOD SPECIMENOrdering Facility: [facility] Address: [address] [place] [address] Performed By: #### 5 8410-2 ####[facility]ORATORYCLIA [id number] [address] [place] Nucleated RBC (Bld) [#/Vol] 10*3/uL Normal <0.01 [facility] Comment on above: Order Comment: Speci men Type: BLOOD SPECIMENOrdering Facility: [facility] Address: [address] [address] Performed By: #### 5 8410-2 ####[facility] LABORATORYCLIA [id number] [place] [address] [place] Platelet mean volume (Bld) [Entitic vol] 8.9 fL Low 9.0-12.7 [facility] Comment on above: Order Comment: Speci men Type: BLOOD SPECIMENOrdering Facility: [facility] Address: [address] [place] [address] Performed By: #### 5 8410-2 ####[facility] LABORATORYCLIA [id number] [place] [address] [place] Platelets (Bld) [#/Vol] 77 10*3/uL Low 150-400 [facility] Comment on above: Order Comment: Speci men Type: BLOOD SPECIMENOrdering Facility: [facility] Address: [address] [place] [address] Result Comment: Resu lts checked and verified.No clot detected. Performed By: #### 5 8410-2 ####[facility] LABORATORYCLIA [id number] [place] [id number] [place] RBC (Bld) [#/Vol] 3.16 10*6/uL Low 4.20-6.00 [facility] Comment on above: Order Comment: Speci men Type: BLOOD SPECIMENOrdering Facility: [facility] Address: [address] [place] [address] Performed By: #### 5 8410-2 ####[facility] LABORATORYCLIA [id number] [address] [place] WBC (Bld) [#/Vol] 1.76 10*3/uL Low 3.70-11.00 [facility] Comment on above: Order Comment: Speci men Type: BLOOD SPECIMENOrdering Facility: [facility] Address: [address] [place] [address] Performed By: #### 5 8410-2 ####[facility] LABORATORYCLIA [id number] [address] [place] Erythrocyte distribution width (RBC) [Ratio] 14.3 % Normal 11.5-15.0 [facility] Comment on above: Order Comment: Speci men Type: BLOOD SPECIMENOrdering Facility: [facility] Address: [address] [place] [address] Performed By: #### 5 8410-2 ####[facility] LABORATORYCLIA [id number] [address] [place] Hematocrit (Bld) [Volume fraction] 30.8 % Low 39.0-51.0 [facility] Comment on above: Order Comment: Speci men Type: BLOOD SPECIMENOrdering Facility: [facility] Address: [address] [place] [address] Performed By: #### 5 8410-2 ####[facility] LABORATORYCLIA [id number] [address] [place] Hemoglobin (Bld) [Mass/Vol] 10.3 g/dL Low 13.0-17.0 [facility] Comment on above: Order Comment: Speci men Type: BLOOD SPECIMENOrdering Facility: [facility] Address: [address] [address] Performed By: #### 5 8410-2 ####[facility] LABORATORYCLIA [id number] [address] MCH (RBC) [Entitic mass] 31.4 pg Normal 26.0-34.0 [facility] Comment on above: Order Comment: Speci men Type: BLOOD SPECIMENOrdering Facility: [facility] Address: [address] [address] Performed By: #### 5 8410-2 ####[facility] LABORATORYCLIA [id number] [address] MCHC (RBC) [Mass/Vol] 33.4 g/dL Normal 30.5-36.0 [facility] Comment on above: Order Comment: Speci men Type: BLOOD SPECIMENOrdering Facility: [facility] Address: [address] [address] Performed By: #### 5 8410-2 ####[facility] LABORATORYCLIA [id number] [address] MCV (RBC) [Entitic vol] 93.9 fL Normal 80.0-100.0 [facility] Comment on above: Order Comment: Speci men Type: BLOOD SPECIMENOrdering Facility: [facility] Address: [address] [address] Performed By: #### 5 8410-2 ####[facility] LABORATORYCLIA [id number] [address] Nucleated RBC (Bld) [#/Vol] 10*3/uL Normal <0.01 [facility] Comment on above: Order Comment: Speci men Type: BLOOD SPECIMENOrdering Facility: [facility] Address: [address] [address] Performed By: #### 5 8410-2 ####[facility] LABORATORYCLIA [id number] [place] [address] [place] Platelet mean volume (Bld) [Entitic vol] 8.7 fL Low 9.0-12.7 [facility] Comment on above: Order Comment: Speci men Type: BLOOD SPECIMENOrdering Facility: [facility] Address: [address] [place] [address] Performed By: #### 5 8410-2 ####[facility] LABORATORYCLIA [id number] [place] [address] [place] Platelets (Bld) [#/Vol] 78 10*3/uL Low 150-400 [facility] Comment on above: Order Comment: Speci men Type: BLOOD SPECIMENOrdering Facility: [facility] Address: [address] [place] [address] Result Comment: Resu lts checked and verified.No clot detected. Performed By: #### 5 8410-2 ####[facility] LABORATORYCLIA [id number] [place] [address] [place] RBC (Bld) [#/Vol] 3.28 10*6/uL Low 4.20-6.00 [facility] Comment on above: Order Comment: Speci men Type: BLOOD SPECIMENOrdering Facility: [facility] Address: [address] [place] [address] Performed By: #### 5 8410-2 ####[facility] LABORATORYCLIA [id number] [place] [address] [place] WBC (Bld) [#/Vol] 2.24 10*3/uL Low 3.70-11.00 [facility] Comment on above: Order Comment: Speci men Type: BLOOD SPECIMENOrdering Facility: [facility] Address: [address] [place] [address] Performed By: #### 5 8410-2 ####[facility] LABORATORYCLIA [id number] [address] [place] Erythrocyte distribution width (RBC) [Ratio] 14.0 % Normal 11.5-15.0 [facility] Comment on above: Order Comment: Speci men Type: BLOOD SPECIMENOrdering Facility: [facility] Address: [address] [address] Performed By: #### 5 8410-2 ####[facility] LABORATORYCLIA [id number] [address] Hematocrit (Bld) [Volume fraction] 29.8 % Low 39.0-51.0 [facility] Comment on above: Order Comment: Speci men Type: BLOOD SPECIMENOrdering Facility: [facility] Address: [address] [address] Performed By: #### 5 8410-2 ####[facility] LABORATORYCLIA [id number] [address] [place] Hemoglobin (Bld) [Mass/Vol] 10.2 g/dL Low 13.0-17.0 [facility] Comment on above: Order Comment: Speci men Type: BLOOD SPECIMENOrdering Facility: [facility] Address: [address] [address] Performed By: #### 5 8410-2 ####[facility] LABORATORYCLIA [id number] [address] MCH (RBC) [Entitic mass] 31.8 pg Normal 26.0-34.0 [facility] Comment on above: Order Comment: Speci men Type: BLOOD SPECIMENOrdering Facility: [facility] Address: [address] [place] [address] Performed By: #### 5 8410-2 ####[facility] LABORATORYCLIA [id number] [address] STATES [facility] MCHC (RBC) [Mass/Vol] 34.2 g/dL Normal 30.5-36.0 [facility] Comment on above: Order Comment: Speci men Type: BLOOD SPECIMENOrdering Facility: [facility] Address: [address] [place] [address] Performed By: #### 5 8410-2 ####[facility] LABORATORYCLIA [id number] [address] [place] MCV (RBC) [Entitic vol] 92.8 fL Normal 80.0-100.0 [facility] Comment on above: Order Comment: Speci men Type: BLOOD SPECIMENOrdering Facility: [facility] Address: [address] [address] Performed By: #### 5 8410-2 ####[facility] LABORATORYCLIA [id number] [address] [place] Nucleated RBC (Bld) [#/Vol] 10*3/uL Normal <0.01 [facility] Comment on above: Order Comment: Speci men Type: BLOOD SPECIMENOrdering Facility: [facility] Address: [address] [address] Performed By: #### 5 8410-2 ####[facility] LABORATORYCLIA [id number] [address] [place] Platelet mean volume (Bld) [Entitic vol] 8.8 fL Low 9.0-12.7 [facility] Comment on above: Order Comment: Speci men Type: BLOOD SPECIMENOrdering Facility: [facility] Address: [address] [address] Performed By: #### 5 8410-2 ####[facility] LABORATORYCLIA [id number] [place] [address] [place] Platelets (Bld) [#/Vol] 77 10*3/uL Low 150-400 [facility] Comment on above: Order Comment: Speci men Type: BLOOD SPECIMENOrdering Facility: [facility] Address: [address] [address] Result Comment: No c lot detected. Performed By: #### 5 8410-2 ####[facility] LABORATORYCLIA [id number] [place] [address] [place] RBC (Bld) [#/Vol] 3.21 10*6/uL Low 4.20-6.00 [facility] Comment on above: Order Comment: Speci men Type: BLOOD SPECIMENOrdering Facility: [facility] Address: [address] [address] Performed By: #### 5 8410-2 ####[facility] LABORATORYCLIA [id number] [place] [id number] [place] WBC (Bld) [#/Vol] 2.91 10*3/uL Low 3.70-11.00 [facility] Comment on above: Order Comment: Speci men Type: BLOOD SPECIMENOrdering Facility: [facility] Address: [address] [place] [address] Performed By: #### 5 8410-2 ####[facility] LABORATORYCLIA [id number] [place] [id number] [place] CONSULTon 04-10-2023 CONSULT Normal [facility] CT ABD/PEL W IVCONon 023 CT ABD/PEL W IVCON * * *Final Report* * * DATE OF EXAM: Apr 10 2023 1:03AM [facility] 0530 - CT ABD/PEL W IVCON / PROCEDURE REASON: Nausea/vomiting * * * * Physician Interpretation * * * * EXAMINATION: CT ABDOMEN AND PELVIS WITH IV CONTRAST CLINICAL HISTORY: Severe LEFT upper abdominal pain. Alcoholic cirrhosis. TECHNIQUE: CT of the abdomen and pelvis was performed using standard technique, scanning from just above the dome of the diaphragm to the symphysis pubis. MQ: CTAP_3 Contrast: IV: 100 ml of Omnipaque 350 CT Radiation dose: Integrated Dose-length product (DLP) for this visit = 410 mGy*cm. CT Dose Reduction Employed: Automated exposure control(AEC) and iterative recon COMPARISON: 03/30/2023. RESULT: Liver: Nodular, cirrhotic liver. No focal hepatic lesion identified. The portal and hepatic veins are patent. Biliary: No bile duct dilation. Cholelithiasis. Spleen: Moderate splenomegaly. Large perisplenic varices with a LEFT splenorenal shunt. The main splenic vein is patent. Pancreas: No mass or duct dilation. Adrenals: No mass. Kidneys: No mass, calculus or hydronephrosis. GI tract: Paraesophageal varices are present. No active hemorrhage identified in the lumen of the bowel within the limitations of this single venous phase. Lymph nodes: No abdominal or pelvic lymphadenopathy. Mesentery/Peritoneum: No ascites or mass. Retroperitoneum: No mass. Vasculature: Large perisplenic varices described above. Moderate aortoiliac atherosclerosis. Pelvis: No mass, ascites or fluid collection. Bones/Soft Tissues: Degenerative changes. Lower thorax: Unremarkable. It Security Consulting Director (topogram) images: No additional findings. IMPRESSION: 1. No acute findings. 2. Cirrhosis with sequelae of portal hypertension detailed above including paraesophageal varices. 3. Cholelithiasis. Sock Lining Examiner: REHAN Transcribe Date/Time: Apr 10 2023 2:02A Dictated by : DESTIN ROSE MD This examination was interpreted and the report reviewed and electronically signed by: DESTIN ROSE MD on Apr 10 2023 2:09AM EST [id number] Normal [facility] metabolic 2000 panelon 04-10-2023 Albumin [Mass/Vol] 3.4 g/dL Low 3.9-4.9 [facility] Comment on above: Order Comment: Speci men Type: BLOOD SPECIMENOrdering Facility: [facility] Address: [address] [place] [address] Performed By: #### 2 4323-8 ####[facility] LABORATORYCLIA [id number] [place] [address] [place] ALP [Catalytic activity/Vol] 111 U/L Normal 38-113 [facility] Comment on above: Order Comment: Speci men Type: BLOOD SPECIMENOrdering Facility: [facility] Address: [address] [place] [address] Performed By: #### 2 4323-8 ####[facility] LABORATORYCLIA [id number] [place] [address] [place] ALT [Catalytic activity/Vol] 30 U/L Normal 10-54 [facility] Comment on above: Order Comment: Speci men Type: BLOOD SPECIMENOrdering Facility: [facility] Address: [address] [place] [address] Performed By: #### 2 4323-8 ####[facility] LABORATORYCLIA [id number] [place] [address] [place] Anion gap [Moles/Vol] 10 mmol/L Normal 9-18 [facility] Comment on above: Order Comment: Speci men Type: BLOOD SPECIMENOrdering Facility: [facility] Address: [address] [address] Performed By: #### 2 4323-8 ####[facility] LABORATORYCLIA [id number] [place] [address] [place] AST [Catalytic activity/Vol] 58 U/L High 14-40 [facility] Comment on above: Order Comment: Speci men Type: BLOOD SPECIMENOrdering Facility: [facility] Address: [address] [place] [address] Performed By: #### 2 4323-8 ####[facility] LABORATORYCLIA [id number] [place] [address] [place] Bilirubin [Mass/Vol] 0.5 mg/dL Normal 0.2-1.3 [facility] Comment on above: Order Comment: Speci men Type: BLOOD SPECIMENOrdering Facility: [facility] Address: [address] [place] [address] Performed By: #### 2 4323-8 ####[facility] LABORATORYCLIA [id number] [place] [address] [place] Calcium [Mass/Vol] 7.2 mg/dL Low 8.5-10.2 [facility] Comment on above: Order Comment: Speci men Type: BLOOD SPECIMENOrdering Facility: [facility] Address: [address] [place] [address] Performed By: #### 2 4323-8 ####[facility] LABORATORYCLIA [id number] [place] [address] [place] Chloride [Moles/Vol] 105 mmol/L Normal 97-105 [facility] Comment on above: Order Comment: Speci men Type: BLOOD SPECIMENOrdering Facility: [facility] Address: [address] [place] [address] Performed By: #### 2 4323-8 ####[facility] LABORATORYCLIA [id number] [place] [address] [place] CO2 [Moles/Vol] 23 mmol/L Normal 22-30 [facility] Comment on above: Order Comment: Speci men Type: BLOOD SPECIMENOrdering Facility: [facility] Address: [address] [address] Performed By: #### 2 4323-8 ####[facility] LABORATORYCLIA [id number] [place] [id number] [place] [facility] Creatinine [Mass/Vol] 0.83 mg/dL Normal 0.73-1.22 [facility] Comment on above: Order Comment: Berna champion Type: BLOOD SPECIMENOrdering Facility: [facility] Address: [address] [address] Performed By: #### 2 4323-8 ####[facility] LABORATORYCLIA [id number] [address] Creatinine and Glomerular filtration rate.predicted panel (S/P/Bld) 104 mL/min/1.73m??? Normal >=60 [facility] Comment on above: Order Comment: Berna champion Type: BLOOD SPECIMENOrdering Facility: [facility] Address: [address] [address] Result Comment: Puja mated Glomerular Filtration Rate (eGFR) is calculated using the 2020 CKD-EPI creatinine equation. This equation utilizes serum creatinine, sex, and age as parameters. The creatinine assay has traceable calibration to isotope dilution-mass spectrometry. Refer to KDIGO guidelines for clinical interpretation. In patients with unstable renal function, e.g. those with acute kidney injury, the eGFR may not accurately reflect actual GFR. Performed By: #### 2 4323-8 ####[facility] LABORATORYCLIA [id number] [place] [address] [place] Glucose [Mass/Vol] 181 mg/dL High 74-99 [facility] Comment on above: Order Comment: Berna champion Type: BLOOD SPECIMENOrdering Facility: [facility] Address: [address] [address] Result Comment: The [place] [employer] Association (ADA) provides guidance for cutoff values for fasting glucose and random glucose. The ADA defines fasting as no caloric intake for at least 8 hours. Fasting plasma glucose results between 100 to 125 mg/dL indicate increased risk for diabetes (prediabetes).Fasting plasma glucose results greater than or equal to 126 mg/dL meet the criteria for diagnosis of diabetes. In the absence of unequivocal hyperglycemia, results should be confirmed by repeat testing. In a patient with classic symptoms of hyperglycemia or hyperglycemic crisis, random plasma glucose results greater than or equal to 200 mg/dL meet the criteria for diagnosis of diabetes.Reference: Standards of Medical Care in Diabetes 2016, [place] [employer]. Diabetes Care. 2016.39(Suppl 1). Performed By: #### 2 4323-8 ####[facility] LABORATORYCLIA [id number] [place] [address] [place] Potassium [Moles/Vol] 3.9 mmol/L Normal 3.7-5.1 [facility] Comment on above: Order Comment: Berna champion Type: BLOOD SPECIMENOrdering Facility: [facility] Address: [address] [place] [address] Performed By: #### 2 4323-8 ####[facility] LABORATORYCLIA [id number] [place] [address] [place] Protein [Mass/Vol] 5.6 g/dL Low 6.3-8.0 [facility] Comment on above: Order Comment: Berna champion Type: BLOOD SPECIMENOrdering Facility: [facility] Address: [address] [place] [address] Performed By: #### 2 4323-8 ####[facility] LABORATORYCLIA [id number] [place] [address] [place] Sodium [Moles/Vol] 138 mmol/L Normal 136-144 [facility] Comment on above: Order Comment: Dipaki men Type: BLOOD SPECIMENOrdering Facility: [facility] Address: [address] [address] Performed By: #### 2 4323-8 ####[facility] LABORATORYCLIA [id number] [place] [address] [place] Urea nitrogen [Mass/Vol] 6 mg/dL Low 9-24 [facility] Comment on above: Order Comment: Berna champion Type: BLOOD SPECIMENOrdering Facility: [facility] Address: [address] [address] Performed By: #### 2 4323-8 ####[facility] LABORATORYCLIA [id number] [place] [address] [place] Albumin [Mass/Vol] 3.8 g/dL Low 3.9-4.9 [facility] Comment on above: Order Comment: Speci men Type: BLOOD SPECIMENOrdering Facility: [facility] Address: [address] [place] [address] Performed By: #### 1 9123-9, 56470-0 ####[facility] LABORATORYCLIA [id number] [place] [address] [place] ALP [Catalytic activity/Vol] 126 U/L High 38-113 [facility] Comment on above: Order Comment: Speci men Type: BLOOD SPECIMENOrdering Facility: [facility] Address: [address] [address] Performed By: #### 1 9123-9, 14661-2 ####[facility] LABORATORYCLIA [id number] [address] [place] ALT [Catalytic activity/Vol] 36 U/L Normal 10-54 [facility] Comment on above: Order Comment: Speci men Type: BLOOD SPECIMENOrdering Facility: [facility] Address: [address] [place] [address] Performed By: #### 1 9123-9, 64705-1 ####[facility] LABORATORYCLIA [id number] [place] [address] [place] Anion gap [Moles/Vol] 13 mmol/L Normal 9-18 [facility] Comment on above: Order Comment: Speci men Type: BLOOD SPECIMENOrdering Facility: [facility] Address: [address] [address] Performed By: #### 1 9123-9, 43238-9 ####[facility] LABORATORYCLIA [id number] [address] [place] AST [Catalytic activity/Vol] 76 U/L High 14-40 [facility] Comment on above: Order Comment: Speci men Type: BLOOD SPECIMENOrdering Facility: [facility] Address: [address] [address] Performed By: #### 1 9123-04, ####[facility] LABORATORYCLIA [id number] [place] [address] [place] Bilirubin [Mass/Vol] 0.4 mg/dL Normal 0.2-1.3 [facility] Comment on above: Order Comment: Speci men Type: BLOOD SPECIMENOrdering Facility: [facility] Address: [address] [address] Performed By: #### 1 9123-04, ####[facility] LABORATORYCLIA [id number] [place] [address] [place] Calcium [Mass/Vol] 7.7 mg/dL Low 8.5-10.2 [facility] Comment on above: Order Comment: Speci men Type: BLOOD SPECIMENOrdering Facility: [facility] Address: [address] [address] Performed By: #### 1 9123-04, ####[facility] LABORATORYCLIA [id number] [place] [address] [place] Chloride [Moles/Vol] 105 mmol/L Normal 97-105 [facility] Comment on above: Order Comment: Speci men Type: BLOOD SPECIMENOrdering Facility: [facility] Address: [address] [address] Performed By: #### 1 9123-04, ####[facility] LABORATORYCLIA [id number] [place] [id number] [place] CO2 [Moles/Vol] 21 mmol/L Low 22-30 [facility] Comment on above: Order Comment: Speci men Type: BLOOD SPECIMENOrdering Facility: [facility] Address: [address] [address] Performed By: #### 1 9123-04, ####[facility] LABORATORYCLIA [id number] [place] [address] [place] Creatinine [Mass/Vol] 0.86 mg/dL Normal 0.73-1.22 [facility] Comment on above: Order Comment: Berna champion Type: BLOOD SPECIMENOrdering Facility: [facility] Address: [address] [id number] Performed By: #### 1 9123-9, 85658-2 ####[facility] LABORATORYCLIA [id number] [place] [id number] [place] Creatinine and Glomerular filtration rate.predicted panel (S/P/Bld) 103 mL/min/1.73m??? Normal >=60 [facility] Comment on above: Order Comment: Berna akira Type: BLOOD SPECIMENOrdering Facility: [facility] Address: [address] Result Comment: Puja mated Glomerular Filtration Rate (eGFR) is calculated using the 2020 CKD-EPI creatinine equation. This equation utilizes serum creatinine, sex, and age as parameters. The creatinine assay has traceable calibration to isotope dilution-mass spectrometry. Refer to KDIGO guidelines for clinical interpretation. In patients with unstable renal function, e.g. those with acute kidney injury, the eGFR may not accurately reflect actual GFR. Performed By: #### 1 9123-9, 08118-5 ####[facility] LABORATORYCLIA [id number] [place] [id number] [place] Glucose [Mass/Vol] 132 mg/dL High 74-99 [facility] Comment on above: Order Comment: Berna akira Type: BLOOD SPECIMENOrdering Facility: [facility] Address: [address] [id number] Result Comment: The [place] Diabetes Association (ADA) provides guidance for cutoff values for fasting glucose and random glucose. The ADA defines fasting as no caloric intake for at least 8 hours. Fasting plasma glucose results between 100 to 125 mg/dL indicate increased risk for diabetes (prediabetes).Fasting plasma glucose results greater than or equal to 126 mg/dL meet the criteria for diagnosis of diabetes. In the absence of unequivocal hyperglycemia, results should be confirmed by repeat testing. In a patient with classic symptoms of hyperglycemia or hyperglycemic crisis, random plasma glucose results greater than or equal to 200 mg/dL meet the criteria for diagnosis of diabetes.Reference: Standards of Medical Care in Diabetes 2016, [place] [employer]. Diabetes Care. 2016.39(Suppl 1). Performed By: #### 1 23-9, 72120-9 ####[facility] LABORATORYCLIA [id number] [place] [address] [place] Potassium [Moles/Vol] 4.1 mmol/L Normal 3.7-5.1 [facility] Comment on above: Order Comment: Speci men Type: BLOOD SPECIMENOrdering Facility: [facility] Address: [address] [address] Performed By: #### 1 23-9, ####[facility] LABORATORYCLIA [id number] [place] [address] [place] Protein [Mass/Vol] 6.2 g/dL Low 6.3-8.0 [facility] Comment on above: Order Comment: Speci men Type: BLOOD SPECIMENOrdering Facility: [facility] Address: [address] [address] Performed By: #### 1 23-9, ####[facility] LABORATORYCLIA [id number] [place] [address] [place] Sodium [Moles/Vol] 139 mmol/L Normal 136-144 [facility] Comment on above: Order Comment: Speci men Type: BLOOD SPECIMENOrdering Facility: [facility] Address: [address] [address] Performed By: #### 1 239, ####[facility] LABORATORYCLIA [id number] [place] [address] [place] Urea nitrogen [Mass/Vol] 6 mg/dL Low 9-24 [facility] Comment on above: Order Comment: Speci men Type: BLOOD SPECIMENOrdering Facility: [facility] Address: [address] [address] Performed By: #### 1 9123-9, 64806-9 ####[facility] LABORATORYCLIA [id number] [place] [id number] [place] ED PROV NOTEon 04-10-2023 ED PROV NOTE HNO ID: [id number] Author: Lavelle Elizabeth MD Service: Emergency Medicine Author Type: Physician Type: ED Provider Notes Filed: 04/10/2023 5:23 AM Note Text: ED Provider Note Patient Name: Galindo Snow : 1970 SERVICE DATE: 04/09/23 History Patient presents with: Hematemesis This is a 52-year-old male with a history of alcohol abuse and esophageal varices with a recent upper GI bleed at the end of March. He was admitted to [place] [facility] and was in withdraw for several days. He pleated the detox and signed out AMA per the history with him and his . He did go back to drinking and has been drinking since then. His last beer was between 1 and 2 hours ago. He drinks at least 10 beers per day. He does have some fairly severe left upper abdominal pain but he tells me that this is intermittent and comes and goes and is not unusual for him. He vomited blood 4 times since mid afternoon. He is not reporting any chest pain or shortness of breath. He is not having any back pain. No new pain or swelling in his legs. No headache or any new numbness or weakness. There has been no black or bloody stools yet. No other complaints. PAST MEDICAL HISTORY Diagnosis Date Alcoholism (HCC) Gallstones Gastropathy PUD (peptic ulcer disease) Thrombocytopenia (HCC) PAST SURGICAL HISTORY Procedure Laterality Date COLONOSCOPY 2013 polyp EGD 2012 EGD 01/20/2018 DONE ORTHOPEDICS SURGERY HX teen R knee arthroscopy FAMILY HISTORY Problem Relation Age of Onset Diabetes Mother other (Cirrhosis) Mother other (Esophageal Varicies) Mother other (Lung Cancer) Father Social History Tobacco Use Smoking status: Former Years: 14 Types: Cigarettes Start date: 08/06/2000 Smokeless tobacco: Current Types: Chew Vaping Use Vaping Use: Never used Substance and Sexual Activity Alcohol use: Not Currently Comment: alcoholic Drug use: No Sexual activity: Yes Partners: Female ALLERGIES Allergen Reactions Dilaudid [[employer]rom[employer]* Mental Status Change, Itching Review of Systems All other systems reviewed and are negative. Physical Exam Vitals [04/09/23 2325] BP Pulse Temp Temp src Resp SpO2 Weight Height 149/70 (!) 102 36.8 ?C (98.3 ?F) Temporal 18 97 % 74.8 kg (165 lb) -- Physical Exam Vitals and nursing note reviewed. Constitutional: General: He is not in acute distress. Appearance: He is not diaphoretic. HENT: Head: Normocephalic and atraumatic. Right Ear: External ear normal. Left Ear: External ear normal. Nose: Nose normal. Eyes: General: Right eye: No discharge. Left eye: No discharge. Conjunctiva/sclera: Conjunctivae normal. Cardiovascular: Rate and Rhythm: Normal rate and regular rhythm. Heart sounds: Normal heart sounds. Pulmonary: Effort: Pulmonary effort is normal. No respiratory distress. Breath sounds: Normal breath sounds. No stridor. No wheezing or rales. Abdominal: General: There is no distension. Palpations: Abdomen is soft. Tenderness: There is abdominal tenderness. Comments: Significant tenderness in his left upper abdomen with some mild voluntary guarding. Abdomen is otherwise nontender. Skin: General: Skin is warm and dry. Findings: No rash. Neurological: Mental Status: He is alert and oriented to person, place, and time. Psychiatric: Behavior: Behavior normal. Diagnostic Testing ED Labs Ordered and Reviewed COMP METABOLIC PANEL - Abnormal; Notable for the following components: Result Value Ref Range Calcium, Total 8.2 (*) 8.5 - 10.2 mg/dL Alkaline Phosphatase 153 (*) 38 - 113 U/L AST 98 (*) 14 - 40 U/L Glucose 120 (*) 74 - 99 mg/dL BUN 6 (*) 9 - 24 mg/dL Chloride 109 (*) 97 - 105 mmol/L CO2 21 (*) 22 - 30 mmol/L All other components within normal limits LIPASE BLD - Abnormal; Notable for the following components: Lipase 188 (*) 16 - 61 U/L All other components within normal limits CBC + DIFF - Abnormal; Notable for the following components: RBC 3.46 (*) 4.20 - 6.00 m/uL Hemoglobin 11.4 (*) 13.0 - 17.0 g/dL Hematocrit 31.7 (*) 39.0 - 51.0 % Platelet Count 118 (*) 150 - 400 k/uL MPV 8.9 (*) 9.0 - 12.7 fL Abs Baso 0.11 (*) <0.11 k/uL All other components within normal limits MAGNESIUM BLD - Normal PROTHROMBIN TIME/PT - Normal ACTIVATED PTT - Normal Narrative: Unfractionated Heparin Therapeutic Ranges: Standard Heparin Nomogram: 53 to 78 seconds (anti-Xa level of 0.3 to 0.7 U/ml) Low Dose/ACS Nomogram: 49 to 67 seconds (anti-Xa level of 0.2 to 0.5 U/ml) Stroke Treatment Nomogram: 49 to 67 seconds (anti-Xa level of 0.2 to 0.5 U/ml) Note: The APTT therapeutic range has been determined for the current lot of laboratory APTT reagent in use throughout the [facility]. Procedures ED Course / Clinical Impression ED Course as of 04/10/23 0504 Lavelle Elizabeth's Documentation Wed Apr 10, 2023 0013 He reports the last alc (more content not included)... Normal [facility] HISTORY PHYSICALon HISTORY PHYSICAL Normal [facility] Magnesium SerPl-mCncon 04-10 Magnesium [Mass/Vol] 1.8 mg/dL Normal 1.7-2.3 [facility] Comment on above: Order Comment: Speci men Type: BLOOD SPECIMENOrdering Facility: [facility] Address: [address] [place], [place] [id number] Performed By: #### 1 9123-9, 46337-1 ####[facility] LABORATORYCLIA [id number] [address] OF [facility] NURSING PROGon 04-10-2023 NURSING PROG Normal [facility] PT panel Coag (PPP)on 2022 INR Coag (PPP) [Relative time] 1.2 {INR} Normal 0.9-1.3 [facility] Comment on above: Order Comment: Specyonatan champion Type: BLOOD SPECIMENOrdering Facility: [facility] Address: [address] [place], [place] [id number] Result Comment: Kecia min K Antagonist (VKA) Therapeutic Range: INR 2 to 3 (Target INR of 2.5)Note: For patients treated with VKA drugs, such as warfarin, the [place] [employer] 2012 Guideline recommends a therapeutic INR range of 2 to 3 (target INR of 2.5). This recommendation includes high-risk patients with antiphospholipid syndrome with previous arterial or venous thromboembolism, current-generation mechanical or bioprosthetic aortic heart valve replacement.Note: Patients with mechanical aortic valve replacement and additional risk factors for thromboembolic events (atrial fibrillation, previous thromboembolism, LV dysfunction, hypercoagulable conditions) or an older generation mechanical AVR (i.e., ball in-Cage) or any mechanical MVR should have a INR therapeutic range of 2.5 to 3.5 (target INR of 3).Pinky GH, et al. Chest 2012, 141:7S-47SNishimura RA, et al. [facility] 2017, 70: 252-289 Performed By: #### 3 4528-0 ####[facility] LABORATORYCLIA [id number] [address] [place] PT Coag (PPP) [Time] 12.9 s Normal 9.7-13.0 [facility] Comment on above: Order Comment: Speci men Type: BLOOD SPECIMENOrdering Facility: [facility] Address: [address] [place] [address] Performed By: #### 3 4528-0 ####[facility] LABORATORYCLIA [id number] [address] [place] STAPH AUREUS PCRon 3 S. aureus and MRSA panel RUI+probe (Nose) Normal Negative [facility] Comment on above: Order Comment: Speci akria Type: SWAB OF INTERNAL NOSEOrdering Facility: [facility] Address: [address] [place] [address] Result Comment: Nega tive for Staphylococcus aureus by PCR.Negative for MRSA by PCR Performed By: #### S APCR ####[facility] LABCLIA [id number] [address] [place] SURGICAL PATHOLOGYon 023 ADDENDUM 1: Normal [facility] Comment on above: Order Comment: Speci men Type: TISSUE SPECIMENOrdering Facility: [facility] Address: [address] [place] [address] Result Comment: Willy Conrad iven the background of chronic gastritis, a Helicobacter pylori immunostain is performed on block A and is negative for Helicobacter pylori organisms.Laboratory Developed Test (LDT) Disclaimer:Performance characteristics of immunohistochemical, immunofluorescent and chromogenic in-situ hybridization tests have been determined by the performing laboratory within [facility]???s [facility] [place] ([facility], [facility], [facility], [facility], [facility], or [facility]) in a manner consistent with CLIA requirements. One or more of these tests have not been cleared or approved by the FDA. [facility] is regulated under CLIA as qualified to perform high-complexity testing. These tests are used for clinical purposes. They should not be regarded as investigational or for research. Positive and negative controls stain appropriately.Addendum electronically signed by Elo Farley MD on 04/15/2023 at 7:10 AM Performed By: #### S ####[facility] LABORATORYIA [id number] [address] LABIA [id number] [address] CASE REPORT Normal [facility] Comment on above: Order Comment: Speci men Type: TISSUE SPECIMENOrdering Facility: [facility] Address: [address] [place] [address] Result Comment: Surg [facility] Pathology Report Case: [id number] Provider: Mag Vines DO Collected: 04/10/2023 03:41 PMOrdering Location: [facility] Received: 04/10/2023 04:54 PM Endoscopy - ENDOPathologist: Elo Farley MDSpecimen: STOMACH BIOPSY Performed By: #### S ####[facility] R[facility] LABORATORYIA [id number] [address] LABIA [id number] [address] DIAGNOSIS COMMENT A. Immunohistochemic al staining for Helicobacter pylori organisms is pending; the result will be reported as an addendum. Normal [facility] Comment on above: Order Comment: Speci men Type: TISSUE SPECIMENOrdering Facility: [facility] Address: [address] [place] [address] Performed By: #### S ####[facility] LABORATORYCLIA [id number] [address] LABCLIA [id number] [address] FINAL DIAGNOSIS [facility] Comment on above: Order Comment: Speci men Type: TISSUE SPECIMENOrdering Facility: [facility] Address: [address] [place] [address] Result Comment: Willy nur, biopsy:- Reactive gastric oxyntic type mucosa with mild acute inflammation; see comment. Performed By: #### S ####[facility] LABORATORYCLIA [id number] [address] LABCLIA [id number] [address] FINAL PERFORMING LAB Normal [facility] Comment on above: Order Comment: Speci men Type: TISSUE SPECIMENOrdering Facility: [facility] Address: [address] [place] [address] Result Comment: Diag nostic interpretation performed at [facility], [address] [place] [address] CLIA# [id number] Director: Elo Farley M.D. Performed By: #### S ####[facility] LABORATORYCLIA [id number] [address] LABCLIA [id number] [address] GROSS DESCRIPTION Normal [facility] Comment on above: Order Comment: Speci men Type: TISSUE SPECIMENOrdering Facility: [facility] Address: [address] [place] [address] Result Comment: Dang. Lesly NUR BIOPSYReceived in formalin are two pieces of martinez, soft tissue aggregating to 0.4 x 0.3 x 0.2 cm. Totally submitted in one cassette.Gross examination performed at [facility], [address] [place], [place] [address]AMS April 11, 2023 12:38 AM Performed By: #### S ####OFEL[facility] RODARTE LABORATORYCLIA [id number] [place] [id number] [facility] LABCLIA [id number] [address] TYPE + SCREENon 04-10-2023 ABO O Normal [facility] Comment on above: Order Comment: Speci men Type: BLOOD SPECIMENOrdering Facility: [facility] Address: [address] [address] Performed By: #### T SCR ####[facility] BLOOD BANKCLIA [id number] [address] HISTORICAL AB SCR STATUS Negative [facility] Comment on above: Order Comment: Speci men Type: BLOOD SPECIMENOrdering Facility: [facility] Address: [address] [place] [address] Performed By: #### T SCR ####[facility] BLOOD BANKCLIA [id number] [address] Rh Nom (Bld) Positive [facility] Comment on above: Order Comment: Speci men Type: BLOOD SPECIMENOrdering Facility: [facility] Address: [address] [address] Performed By: #### T SCR ####[facility] BLOOD BANKCLIA [id number] [address] OF [place] TYPE AND SCREEN EXPIRATION 04/13/2023 23:59 Normal [facility] Comment on above: Order Comment: Speci men Type: BLOOD SPECIMENOrdering Facility: [facility] Address: [address] [place] [address] Performed By: #### T SCR ####[facility] BLOOD BANKCLIA [id number] [place] [address] [place] Upper GI endoscopyon 023 Upper GI endoscopy Normal [facility] CBC W Auto Differential pane l (Bld)on 04-09-2023 Basophils (Bld) [#/Vol] 0.11 10*3/uL High <0.11 [facility] Comment on above: Order Comment: Speci men Type: BLOOD SPECIMENOrdering Facility: [facility] Address: [address] [address] Performed By: #### 5 7021-8 ####[facility] LWCLIA [id number] [place] [address] [place] Basophils/100 WBC (Bld) 2.1 % Normal [facility] Comment on above: Order Comment: Speci men Type: BLOOD SPECIMENOrdering Facility: [facility] Address: [address] [place] [address] Performed By: #### 5 7021-8 ####[facility] LWCLIA [id number] [address] [place] Differential cell count method Nom (Bld) Auto Normal [facility] Comment on above: Order Comment: Speci men Type: BLOOD SPECIMENOrdering Facility: [facility] Address: [address] [place] [address] Performed By: #### 5 7021-8 ####[facility] LWCLIA [id number] [place] [address] [place] Eosinophils (Bld) [#/Vol] 0.22 10*3/uL Normal <0.46 [facility] Comment on above: Order Comment: Speci men Type: BLOOD SPECIMENOrdering Facility: [facility] Address: [address] [place] [address] Performed By: #### 5 7021-8 ####[facility] LWCLIA [id number] [place] [id number] [place] Eosinophils/100 WBC (Bld) 4.3 % Normal [facility] Comment on above: Order Comment: Speci men Type: BLOOD SPECIMENOrdering Facility: [facility] Address: [address] [address] Performed By: #### 5 7021-8 ####[facility] LWIA [id number] [address] Erythrocyte distribution width (RBC) [Ratio] 14.1 % Normal 11.5-15.0 [facility] Comment on above: Order Comment: Speci men Type: BLOOD SPECIMENOrdering Facility: [facility] Address: [address] [place] [address] Performed By: #### 5 7021-8 ####[facility] LWIA [id number] [address] [place] Hematocrit (Bld) [Volume fraction] 31.7 % Low 39.0-51.0 [facility] Comment on above: Order Comment: Speci men Type: BLOOD SPECIMENOrdering Facility: [facility] Address: [address] [place] [address] Performed By: #### 5 7021-8 ####[facility] LWIA [id number] [place] [address] [place] Hemoglobin (Bld) [Mass/Vol] 11.4 g/dL Low 13.0-17.0 [facility] Comment on above: Order Comment: Speci men Type: BLOOD SPECIMENOrdering Facility: [facility] Address: [address] [place] [address] Performed By: #### 5 7021-8 ####[facility] LWCLIA [id number] [address] [place] Immature granulocytes (Bld) [#/Vol] 0.06 10*3/uL Normal <0.10 [facility] Comment on above: Order Comment: Speci men Type: BLOOD SPECIMENOrdering Facility: [facility] Address: [address] [place] [address] Performed By: #### 5 7021-8 ####[facility] LWIA [id number] [address] STATES OF [facility] Immature granulocytes/100 WBC (Bld) 1.2 % Normal [facility] Comment on above: Order Comment: Speci men Type: BLOOD SPECIMENOrdering Facility: [facility] Address: [address] [place] [address] Performed By: #### 5 7021-8 ####[facility] LWCLIA [id number] [place] [address] [place] Lymphocytes (Bld) [#/Vol] 1.74 10*3/uL Normal 1.00-4.00 [facility] Comment on above: Order Comment: Speci men Type: BLOOD SPECIMENOrdering Facility: [facility] Address: [address] [place] [address] Performed By: #### 5 7021-8 ####[facility] LWCLIA [id number] [address] STATES [facility] Lymphocytes/100 WBC (Bld) 34.0 % Normal [facility] Comment on above: Order Comment: Speci men Type: BLOOD SPECIMENOrdering Facility: [facility] Address: [address] [place] [address] Performed By: #### 5 7021-8 ####[facility] LWCLIA [id number] [place] [address] [place] MCH (RBC) [Entitic mass] 32.9 pg Normal 26.0-34.0 [facility] Comment on above: Order Comment: Speci men Type: BLOOD SPECIMENOrdering Facility: [facility] Address: [address] [place] [address] Performed By: #### 5 7021-8 ####[facility] LWCLIA [id number] [place] [id number] [place] MCHC (RBC) [Mass/Vol] 36.0 g/dL Normal 30.5-36.0 [facility] Comment on above: Order Comment: Speci men Type: BLOOD SPECIMENOrdering Facility: [facility] Address: [address] [address] Performed By: #### 5 7021-8 ####[facility] LWCLIA [id number] [address] MCV (RBC) [Entitic vol] 91.6 fL Normal 80.0-100.0 [facility] Comment on above: Order Comment: Speci men Type: BLOOD SPECIMENOrdering Facility: [facility] Address: [address] [address] Performed By: #### 5 7021-8 ####[facility] CENTERIA [id number] [address] [place] Monocytes (Bld) [#/Vol] 0.41 10*3/uL Normal <0.87 [facility] Comment on above: Order Comment: Speci men Type: BLOOD SPECIMENOrdering Facility: [facility] Address: [address] [place] [address] Performed By: #### 5 7021-8 ####[facility] MEDICAL CENTERIA [id number] [address] Monocytes/100 WBC (Bld) 8.0 % Normal [facility] Comment on above: Order Comment: Speci men Type: BLOOD SPECIMENOrdering Facility: [facility] Address: [address] [place] [address] Performed By: #### 5 7021-8 ####[facility] LWIA [id number] [address] Neutrophils (Bld) [#/Vol] 2.58 10*3/uL Normal 1.45-7.50 [facility] Comment on above: Order Comment: Speci men Type: BLOOD SPECIMENOrdering Facility: [facility] Address: [address] [place] [address] Performed By: #### 5 7021-8 ####[facility] LWIA [id number] [address] [place] Neutrophils/100 WBC (Bld) 50.4 % Normal [facility] Comment on above: Order Comment: Speci men Type: BLOOD SPECIMENOrdering Facility: [facility] Address: [address] [address] Performed By: #### 5 7021-8 ####[facility] LWCLIA [id number] [place] [address] [place] Nucleated RBC (Bld) [#/Vol] 10*3/uL Normal <0.01 [facility] Comment on above: Order Comment: Speci men Type: BLOOD SPECIMENOrdering Facility: [facility] Address: [address] [address] Performed By: #### 5 7021-8 ####[facility] SERVICESCLIA [id number] [address] STATES OF [facility] Nucleated RBC/100 WBC (Bld) [Ratio] 0.0 /100 WBC Normal [facility] Comment on above: Order Comment: Speci men Type: BLOOD SPECIMENOrdering Facility: [facility] Address: [address] [address] Performed By: #### 5 7021-8 ####[facility] LWCLIA [id number] [place] [address] [place] Platelet mean volume (Bld) [Entitic vol] 8.9 fL Low 9.0-12.7 [facility] Comment on above: Order Comment: Speci men Type: BLOOD SPECIMENOrdering Facility: [facility] Address: [address] [address] Performed By: #### 5 7021-8 ####[facility] LWIA [id number] [place] [address] [place] Platelets (Bld) [#/Vol] 118 10*3/uL Low 150-400 [facility] Comment on above: Order Comment: Speci men Type: BLOOD SPECIMENOrdering Facility: [facility] Address: [address] [address] Performed By: #### 5 7021-8 ####YAKOV [facility] LWCLIA [id number] [place] [id number] [facility] RBC (Bld) [#/Vol] 3.46 10*6/uL Low 4.20-6.00 [facility] Comment on above: Order Comment: Speci men Type: BLOOD SPECIMENOrdering Facility: [facility] Address: [address] [address] Performed By: #### 5 7021-8 ####[facility] LWCLIA [id number] [place] [id number] [facility] WBC (Bld) [#/Vol] 5.12 10*3/uL Normal 3.70-11.00 [facility] Comment on above: Order Comment: Speci men Type: BLOOD SPECIMENOrdering Facility: [facility] Address: [address] [place] [address] Performed By: #### 5 7021-8 ####YAKOV [facility] LWCLIA [id number] [place] [id number] [facility] Comprehensive metabolic 2000 panelon 04-09-2023 Albumin [Mass/Vol] 4.2 g/dL Normal 3.9-4.9 [facility] Comment on above: Order Comment: Speci men Type: BLOOD SPECIMENOrdering Facility: [facility] Address: [address] [place] [address] Performed By: #### 3 040-3, , ####[facility] LWCLIA [id number] [place] [id number] [facility] ALP [Catalytic activity/Vol] 153 U/L High 38-113 [facility] Comment on above: Order Comment: Speci men Type: BLOOD SPECIMENOrdering Facility: [facility] Address: [address] [place] [address] Performed By: #### 3 040-3, , ####[facility] LWCLIA [id number] [place] [address] [place] ALT [Catalytic activity/Vol] 42 U/L Normal 10-54 [facility] Comment on above: Order Comment: Speci men Type: BLOOD SPECIMENOrdering Facility: [facility] Address: [address] [place] [address] Performed By: #### 3 040-3, , ####[facility] LWCLIA [id number] [place] [id number] [place] Anion gap [Moles/Vol] 13 mmol/L Normal 9-18 [facility] Comment on above: Order Comment: Speci men Type: BLOOD SPECIMENOrdering Facility: [facility] Address: [address] [place] [address] Performed By: #### 3 040-3, , ####[facility] LWCLIA [id number] [address] [place] AST [Catalytic activity/Vol] 98 U/L High 14-40 [facility] Comment on above: Order Comment: Speci men Type: BLOOD SPECIMENOrdering Facility: [facility] Address: [address] [place] [address] Performed By: #### 3 040-3, , ####[facility] LWCLIA [id number] [place] [id number] [place] Bilirubin [Mass/Vol] 0.4 mg/dL Normal 0.2-1.3 [facility] Comment on above: Order Comment: Speci men Type: BLOOD SPECIMENOrdering Facility: [facility] Address: [address] [place] [address] Performed By: #### 3 040-3, , ####[facility] LWCLIA [id number] [place] [id number] [place] Calcium [Mass/Vol] 8.2 mg/dL Low 8.5-10.2 [facility] Comment on above: Order Comment: Speci men Type: BLOOD SPECIMENOrdering Facility: [facility] Address: [address] [place] [address] Performed By: #### 3 040-3, , ####[facility] LWCLIA [id number] [place] [id number] [place] Chloride [Moles/Vol] 109 mmol/L High 97-105 [facility] Comment on above: Order Comment: Speci men Type: BLOOD SPECIMENOrdering Facility: [facility] Address: [address] [place] [address] Performed By: #### 3 040-3, , ####[facility] LWCLIA [id number] [place] [address] [place] CO2 [Moles/Vol] 21 mmol/L Low 22-30 [facility] Comment on above: Order Comment: Speci men Type: BLOOD SPECIMENOrdering Facility: [facility] Address: [address] [place] [address] Performed By: #### 3 040-3, , ####[facility] LWCLIA [id number] [place] [id number] [place] Creatinine [Mass/Vol] 0.99 mg/dL Normal 0.73-1.22 [facility] Comment on above: Order Comment: Speci men Type: BLOOD SPECIMENOrdering Facility: [facility] Address: [address] [place] [address] Performed By: #### 3 040-3, , ####[facility] LWCLIA [id number] [place] [id number] [facility] Creatinine and Glomerular filtration rate.predicted panel (S/P/Bld) 91 mL/min/1.73m??? Normal >=60 [facility] Comment on above: Order Comment: Berna champion Type: BLOOD SPECIMENOrdering Facility: [facility] Address: [address] [id number] Result Comment: Puja mated Glomerular Filtration Rate (eGFR) is calculated using the 2020 CKD-EPI creatinine equation. This equation utilizes serum creatinine, sex, and age as parameters. The creatinine assay has traceable calibration to isotope dilution-mass spectrometry. Refer to KDIGO guidelines for clinical interpretation. In patients with unstable renal function, e.g. those with acute kidney injury, the eGFR may not accurately reflect actual GFR. Performed By: #### 3 040-3, 44214-3, ####[facility] LWCLIA [id number] [place] [id number] [place] Glucose [Mass/Vol] 120 mg/dL High 74-99 [facility] Comment on above: Order Comment: Berna champion Type: BLOOD SPECIMENOrdering Facility: [facility] Address: [address] [place] [address] Result Comment: The [place] [employer] (ADA) provides guidance for cutoff values for fasting glucose and random glucose. The ADA defines fasting as no caloric intake for at least 8 hours. Fasting plasma glucose results between 100 to 125 mg/dL indicate increased risk for diabetes (prediabetes). Fasting plasma glucose results greater than or equal to 126 mg/dL meet the criteria for diagnosis of diabetes. In the absence of unequivocal hyperglycemia, results should be confirmed by repeat testing. In a patient with classic symptoms of hyperglycemia or hyperglycemic crisis, random plasma glucose results greater than or equal to 200 mg/dL meet the criteria for diagnosis of diabetes. Reference: Standards of Medical Care in Diabetes 2016, [place] [employer]. Diabetes Care. 2016.39(Suppl 1). Performed By: #### 3 040-3, 33665-4, ####[facility] LWCLIA [id number] [place] [id number] [place] Potassium [Moles/Vol] 4.0 mmol/L Normal 3.7-5.1 [facility] Comment on above: Order Comment: Berna champion Type: BLOOD SPECIMENOrdering Facility: [facility] Address: [address] [id number] Performed By: #### 3 040-3, , ####[facility] LWCLIA [id number] [place] [id number] [facility] Protein [Mass/Vol] 7.0 g/dL Normal 6.3-8.0 [facility] Comment on above: Order Comment: Speci men Type: BLOOD SPECIMENOrdering Facility: [facility] Address: [address] [place] [address] Performed By: #### 3 040-3, , ####[facility] LWCLIA [id number] [place] [id number] [facility] Sodium [Moles/Vol] 143 mmol/L Normal 136-144 [facility] Comment on above: Order Comment: Speci men Type: BLOOD SPECIMENOrdering Facility: [facility] Address: [address] [place] [address] Performed By: #### 3 040-3, , ####[facility] LWCLIA [id number] [place] [id number] [place] [facility] Urea nitrogen [Mass/Vol] 6 mg/dL Low 9-24 [facility] Comment on above: Order Comment: Speci men Type: BLOOD SPECIMENOrdering Facility: [facility] Address: [address] [place] [address] Performed By: #### 3 040-3, , ####[facility] LWCLIA [id number] [place] [id number] [place] [facility] ED NOTEon 04-09-2023 ED NOTE HNO ID: [id number] Author: Michael Velasquez RN Service: Nursing Author Type: Registered Nurse Type: ED Notes Filed: 04/09/2023 11:27 PM Note Text: Pt presents to ED due to GI bleed, released from ICU on Saturday. Plan of care -Monitor Patient's Vital Signs for changes in condition -Monitor patient for changes in pain -Maintain patient safety and privacy -Provide comfort measures -Call light in place Siderails up, bed in locked and low position Normal [facility] Lipase SerPl-cCncon 04-09-20 Lipase [Catalytic activity/Vol] 188 U/L High 16-61 [facility] Comment on above: Order Comment: Berna champion Type: BLOOD SPECIMENOrdering Facility: [facility] Address: [address] [place] [address] Performed By: #### 3 040-3, 90968-9, ####[facility] LWCLIA [id number] [place] [id number] [facility] Magnesium SerPl-mCncon 04-09 Magnesium [Mass/Vol] 2.1 mg/dL Normal 1.7-2.3 [facility] Comment on above: Order Comment: Berna champion Type: BLOOD SPECIMENOrdering Facility: [facility] Address: [address] [place] [address] Performed By: #### 3 040-3, , ####[facility] LWCLIA [id number] [place] [id number] [facility] PT panel Coag (PPP)on 2022 INR Coag (PPP) [Relative time] 1.2 {INR} Normal 0.9-1.3 [facility] Comment on above: Order Comment: Berna champion Type: BLOOD SPECIMENOrdering Facility: [facility] Address: [address] [place] [address] Result Comment: Kecia min K Antagonist (VKA) Therapeutic Range: INR 2 to 3 (Target INR of 2.5) Note: For patients treated with VKA drugs, such as warfarin, the [place] [employer] 2012 Guideline recommends a therapeutic INR range of 2 to 3 (target INR of 2.5). This recommendation includes high-risk patients with antiphospholipid syndrome with previous arterial or venous thromboembolism, current-generation mechanical or bioprosthetic aortic heart valve replacement. Note: Patients with mechanical aortic valve replacement and additional risk factors for thromboembolic events (atrial fibrillation, previous thromboembolism, LV dysfunction, hypercoagulable conditions) or an older generation mechanical AVR (i.e., ball in-Cage) or any mechanical MVR should have a INR therapeutic range of 2.5 to 3.5 (target INR of 3). Pinky CAPPS, et al. Chest 2012, 141:7S-47S Monica JARAMILLO, et al. [facility] 2017, 70: 252-289 Performed By: #### 1 4979-9, 23387-9 ####[facility] LWCLIA [id number] [place] [id number] [place] PT Coag (PPP) [Time] 12.5 s Normal 9.7-13.0 [facility] Comment on above: Order Comment: Specyonatan champion Type: BLOOD SPECIMENOrdering Facility: [facility] Address: [address] [place] [address] Performed By: #### 1 4979-9, 84391-2 ####[facility] LWCLIA [id number] [place] [id number] [place] aPTT PPPon 04-09-2023 aPTT Coag (PPP) [Time] 28.1 s Normal 23.0-32.4 [facility] Comment on above: Order Comment: Berna champion Type: BLOOD SPECIMENOrdering Facility: [facility] Address: [address] [place] [address] Performed By: #### 1 4979-9, 83088-2 ####[facility] LWCLIA [id number] [place] [id number] [place] Basic metabolic 2000 panelon 04-04-2023 Anion gap [Moles/Vol] 11 mmol/L Normal - [facility] Comment on above: Order Comment: Dipaki akira Type: BLOOD SPECIMENOrdering Facility: [facility] Address: [address] [address] Performed By: #### 1 9123-9, 2777-1, 63471-3 ####[facility] LABORATORYCLIA [id number] [place] [address] [place] Calcium [Mass/Vol] 7.8 mg/dL Low 8.5-10.2 [facility] Comment on above: Order Comment: Speci men Type: BLOOD SPECIMENOrdering Facility: [facility] Address: [address] [address] Performed By: #### 1 9123-9, 2777, 94247-3 ####[facility] LABORATORYCLIA [id number] [place] [address] [place] Chloride [Moles/Vol] 99 mmol/L Normal 97-105 [facility] Comment on above: Order Comment: Speci men Type: BLOOD SPECIMENOrdering Facility: [facility] Address: [address] [place] [address] Performed By: #### 1 9123-9, 27702-02, 71467-8 ####[facility] LABORATORYCLIA [id number] [place] [id number] [place] CO2 [Moles/Vol] 24 mmol/L Normal 22-30 [facility] Comment on above: Order Comment: Speci men Type: BLOOD SPECIMENOrdering Facility: [facility] Address: [address] [place] [address] Performed By: #### 1 9123-9, 27702-02, 48891-8 ####[facility] LABORATORYCLIA [id number] [place] [address] [place] Creatinine [Mass/Vol] 0.90 mg/dL Normal 0.73-1.22 [facility] Comment on above: Order Comment: Speci men Type: BLOOD SPECIMENOrdering Facility: [facility] Address: [address] [place] [address] Performed By: #### 1 9123-9, 27702-02, 73358-8 ####[facility] LABORATORYCLIA [id number] [place] [address] [place] Creatinine and Glomerular filtration rate.predicted panel (S/P/Bld) 101 mL/min/1.73m??? Normal >=60 [facility] Comment on above: Order Comment: Berna champion Type: BLOOD SPECIMENOrdering Facility: [facility] Address: [address] [id number] Result Comment: Puja mated Glomerular Filtration Rate (eGFR) is calculated using the 2020 CKD-EPI creatinine equation. This equation utilizes serum creatinine, sex, and age as parameters. The creatinine assay has traceable calibration to isotope dilution-mass spectrometry. Refer to KDIGO guidelines for clinical interpretation. In patients with unstable renal function, e.g. those with acute kidney injury, the eGFR may not accurately reflect actual GFR. Performed By: #### 1 9123-9, 2777-1, 09271-6 ####[facility] LABORATORYCLIA [id number] [facility] [place] [address] [place] Glucose [Mass/Vol] 94 mg/dL Normal 74-99 [facility] Comment on above: Order Comment: Berna champion Type: BLOOD SPECIMENOrdering Facility: [facility] Address: [address] [place] [address] Result Comment: The [place] [employer] (ADA) provides guidance for cutoff values for fasting glucose and random glucose. The ADA defines fasting as no caloric intake for at least 8 hours. Fasting plasma glucose results between 100 to 125 mg/dL indicate increased risk for diabetes (prediabetes). Fasting plasma glucose results greater than or equal to 126 mg/dL meet the criteria for diagnosis of diabetes. In the absence of unequivocal hyperglycemia, results should be confirmed by repeat testing. In a patient with classic symptoms of hyperglycemia or hyperglycemic crisis, random plasma glucose results greater than or equal to 200 mg/dL meet the criteria for diagnosis of diabetes. Reference: Standards of Medical Care in Diabetes 2016, [place] [employer]. Diabetes Care. 2016.39(Suppl 1). Performed By: #### 1 9123-9, 2777-1, 14978-5 ####[facility] LABORATORYCLIA [id number] [facility].[place] [id number] [place] Potassium [Moles/Vol] 3.7 mmol/L Normal 3.7-5.1 [facility] Comment on above: Order Comment: Berna champion Type: BLOOD SPECIMENOrdering Facility: [facility] Address: [address] [address] Performed By: #### 1 9123-9, 2777-, 82611-0 ####[facility] LABORATORYCLIA [id number] [address] STATES OF [facility] Sodium [Moles/Vol] 134 mmol/L Low 136-144 [facility] Comment on above: Order Comment: Speci men Type: BLOOD SPECIMENOrdering Facility: [facility] Address: [address] [address] Performed By: #### 1 9123-9, 2777, 66641-0 ####[facility] LABORATORYIA [id number] [place] [address] [place] Urea nitrogen [Mass/Vol] 9 mg/dL Normal 9-24 [facility] Comment on above: Order Comment: Speci men Type: BLOOD SPECIMENOrdering Facility: [facility] Address: [address] [address] Performed By: #### 1 9123-9, 2777, 53897-4 ####[facility] [id number] [address] [place] CBC panel Auto (Bld)on 04-04 Erythrocyte distribution width (RBC) [Ratio] 12.8 % Normal 11.5-15.0 [facility] Comment on above: Order Comment: Speci men Type: BLOOD SPECIMENOrdering Facility: [facility] Address: [address] [address] Performed By: #### 5 8410-2 ####[facility] LABORATORYIA [id number] [address] [place] Hematocrit (Bld) [Volume fraction] 30.3 % Low 39.0-51.0 [facility] Comment on above: Order Comment: Speci men Type: BLOOD SPECIMENOrdering Facility: [facility] Address: [address] [address] Performed By: #### 5 8410-2 ####[facility] LABORATORYIA [id number] [place] [address] [place] Hemoglobin (Bld) [Mass/Vol] 10.6 g/dL Low 13.0-17.0 [facility] Comment on above: Order Comment: Speci men Type: BLOOD SPECIMENOrdering Facility: [facility] Address: [address] [address] Performed By: #### 5 8410-2 ####[facility] [id number] [address] [place] MCH (RBC) [Entitic mass] 32.2 pg Normal 26.0-34.0 [facility] Comment on above: Order Comment: Speci men Type: BLOOD SPECIMENOrdering Facility: [facility] Address: [address] [place] [address] Performed By: #### 5 8410-2 ####[facility] [id number] [address] [place] MCHC (RBC) [Mass/Vol] 35.0 g/dL Normal 30.5-36.0 [facility] Comment on above: Order Comment: Speci men Type: BLOOD SPECIMENOrdering Facility: [facility] Address: [address] [place] [address] Performed By: #### 5 8410-2 ####[facility] [id number] [address] [place] MCV (RBC) [Entitic vol] 92.1 fL Normal 80.0-100.0 [facility] Comment on above: Order Comment: Speci men Type: BLOOD SPECIMENOrdering Facility: [facility] Address: [address] [place] [address] Performed By: #### 5 8410-2 ####[facility] [id number] [address] [place] Nucleated RBC (Bld) [#/Vol] 10*3/uL Normal <0.01 [facility] Comment on above: Order Comment: Speci men Type: BLOOD SPECIMENOrdering Facility: [facility] Address: [address] [address] Performed By: #### 5 8410-2 ####[facility] LABORATORYCLIA [id number] [place] [id number] [place] Platelet mean volume (Bld) [Entitic vol] 9.4 fL Normal 9.0-12.7 [facility] Comment on above: Order Comment: Speci men Type: BLOOD SPECIMENOrdering Facility: [facility] Address: [address] [address] Performed By: #### 5 8410-2 ####[facility] [id number] [place] [address] [place] Platelets (Bld) [#/Vol] 59 10*3/uL Low 150-400 [facility] Comment on above: Order Comment: Speci men Type: BLOOD SPECIMENOrdering Facility: [facility] Address: [address] [address] Result Comment: No c lot detected. Performed By: #### 5 8410-2 ####[facility] [id number] [place] [address] [place] RBC (Bld) [#/Vol] 3.29 10*6/uL Low 4.20-6.00 [facility] Comment on above: Order Comment: Speci men Type: BLOOD SPECIMENOrdering Facility: [facility] Address: [address] Performed By: #### 5 8410-2 ####[facility] LABORATORYCLIA [id number] [place] [address] [place] WBC (Bld) [#/Vol] 5.21 10*3/uL Normal 3.70-11.00 [facility] Comment on above: Order Comment: Speci men Type: BLOOD SPECIMENOrdering Facility: [facility] Address: [address] [address] Performed By: #### 5 8410-2 ####[facility] LABORATORYIA [id number] [place] [place] [address] [facility] CNDSon 04-04-2023 CNDS HNO ID: [id number] Author: Stacy Kraus APRN.[employer] ADMINISTRATOR Service: Critical Care Author Type: Nurse Practitioner Type: Discharge Summary Filed: 04/04/2023 3:56 PM Note Text: Attestation signed by Radha Cotter MD at 04/07/2023 10:52 AM Reviewed and agree with. DISCHARGE SUMMARY PATIENT NAME: Galindo Snow ADMISSION DATE: 03/30/2023 DISCHARGE DATE: 04/04/2023 ATTENDING PHYSICIAN: Radha Cotter MD Code Status: Full Code Highest Readmission Risk Score: 19 The 30 day readmissions risk score is derived from an internally validated risk model which evaluates patient level characteristics, utilization history, medication orders and lab results up until the day of discharge. Patients with a score of 40 or above are considered highest risk for readmission. Specific patient level drivers will be listed at the bottom of the summary. CONSULTING TEAMS DURING HOSPITALIZATION: Dr. Raghavendra LAZAR Treatment Team: Attending Provider: Radha Cotter MD Consulting: Jewel Browning MD REASON FOR HOSPITALIZATION: Hematemesis DIAGNOSIS: Principal Problem (Resolved): Acute upper GI bleeding (POA: Yes) Active Problems: Hematemesis with nausea (POA: Unknown) Alcohol abuse (POA: Unknown) Resolved Problems: Bleeding esophageal varices (HCC) (POA: Unknown) OPERATIONS DURING HOSPITALIZATION: None PROCEDURES DURING HOSPITALIZATION: EKG HOSPITAL COURSE: 62-year-old male with history of alcohol-related cirrhosis, active alcohol use(4-12 drinks/day?), adenomatous colon polyp, GERD and? Peptic ulcer disease who was admitted to the SDU 03/30 for further management of hematemesis. Briefly patient suffered onset of LLQ/suprapubic pain, and vomited noting some contained bright red blood. After event he presented to the [place] ED. He was hemodynamically stable but for mild sinus tachycardia. H/H was stable but reduced from baseline. He was thrombocytopenic with platelets of 43(near baseline) and mild elevation of Liver enzymes. ETOH level 79. Last drink was reported Saturday night. He has baseline liver disease with grade 1 EV. CTAP in ED noted cirrhotic liver morphology with portal hypertension. Patient was given fluids and started on PPI therapy. GI has followed patient in hospital continuing PPI therapy and adding octreotide with history of EV. He was admitted to SDU for monitoring and at this time has not had recurrent hematemesis. GI plan is to keep NPO at midnight and likely perform and upper GI scope tomorrow. During stay patient was placed on CIWA and required intermittent lorazepam dosing. During afternoon and evening of 03/31 patients withdrawal symptoms became worse requiring more frequent lorazepam dosing. He was a code narcisa requiring haldol and a sitter initiated. ICU was asked by nursing to evaluate due to concern for worsening withdrawal. In just hours patients symptoms have worsened. Currently he is not violent or agitated but increasingly confused, impulsive, with notable tremors and very difficult to redirect. Patient will be taken to ICU for phenobarbital taper initiation along with possible precedex infusion for safe control of etoh withdrawal. Patient admitted to ICU for precedex gtt and phenobarb taper. He was able to be weaned off precedex gtt with improved mentation and withdrawal symptoms. He was started on lactulose per GI. No further episodes of hematemesis since admission. Patient stable; planning to be discharged today with plans to follow up with GI as an outpatient. Transitions of Care Critical Issues: SPECIALIST FOLLOW-UP: Follow up w/ GI to schedule outpatient EGD. LABS AND PROCEDURES PENDING AT DISCHARGE: No pending results. PATIENT CONDITION AT DISCHARGE: Stable DISCHARGE DISPOSITION: Home with Self Care INFORMATION PROVIDED TO PATIENT: Substance Abuse Information Given WOUND/SURGICAL SITE CARE: None DIET: Resume pre-hospital diet ACTIVITY: Resume pre-hospital activity ALLERGIES Allergen Reactions Dilaudid [[employer]* Mental Status Change, Itching DISCHARGE MEDICATION: Medication List START taking these medications lactulose 20 gram/30 mL solution 30 mL by ORAL/FEEDING TUBE route three times daily. CONTINUE taking these medications buPROPion XL 300 mg 24 hr tablet Commonly known as: WELLBUTRIN XL Take 1 tablet by mouth once daily. docusate sodium 100 mg capsule Commonly known as: COLACE Take 1 capsule by mouth once daily. hydroCHLOROthiazide 12.5 mg capsule Take 1 capsule by mouth once daily. lisinopril 40 mg tablet Commonly known as: ZESTRIL Take 1 tablet by mouth once daily. magnesium oxide 400 mg (241.3 mg magnesium) tablet Commonly known as: MAG-OX Take 1 tablet by mouth once daily. pantoprazole DR 40 mg tablet Commonly known as: PROTONIX Ta (more content not included)... [facility] 04-04-2023 [facility] CONSULT PROGon 04-04-2023 CONSULT PROG HNO ID: [id number] Author: Spencer Mabry MD Service: Gastroenterology Author Type: Physician Type: Consult Progress Note Filed: 04/04/2023 3:28 PM Note Text: Subjective Objective BP 153/61 Pulse 67 Temp 37.2 ?C (98.9 ?F) (Oral) Resp 11 Ht 177.8 cm (5' 10 ) Wt 75.2 kg (165 lb 12.6 oz) SpO2 98% BMI 23.79 kg/m? General: Healthy appearing white man in no distress. Neuro: Alert and oriented x 3. Cranial nerves and motor function grossly intact HEENT: Atraumatic, PERRLA, sclera anicteric, no lymphadenopathy, no visible lesions in mouth or oropharynx Cardiac: Regular rate and rhythm. No murmurs, rubs, or gallops Pulmonary: Clear to auscultation bilaterally. No wheezes, crackles, or rhonchi Abdominal: Soft, nondistended, normal bowel sounds in 4 quadrants, nontender to palpation, no organomegaly Ext: Warm and well-perfused. No edema Skin: Warm and dry. No jaundice. Heavily tattooed Rectal: No visible masses, lesions, or rectal bleeding. AAMIR reveals normal tone and brown stool Labs and Studies Reviewed EGD May 2022 Esophagus, grade 1 varix no banding, Diaphragm GEJ and Z line at 40cm Stomach. appearance of GAVE in the antrum, a ransom biopsy is obtained with a cold biopsy forceps DU normal; FINAL DIAGNOSIS Stomach, biopsy: - Oxyntic mucosa with no significant diagnostic alterations. - No morphologic evidence of Helicobacter pylori organisms. MELD 3.0: 12 at 04/04/2023 4:10 AM MELD-Na: 11 at 04/04/2023 4:10 AM Calculated from: Serum Creatinine: 0.90 mg/dL (Using min of 1 mg/dL) at 04/04/2023 4:10 AM Serum Sodium: 134 mmol/L at 04/04/2023 4:10 AM Total Bilirubin: 1.5 mg/dL at 04/03/2023 3:58 AM Serum Albumin: 3.5 g/dL at 04/03/2023 3:58 AM INR(ratio): 1.3 at 04/04/2023 4:10 AM Age at listing (hypothetical): 52 years Sex: Male at 04/04/2023 4:10 AM Heidi Discriminant Function Assessment and Plan Galindo Snow is a 52 year old alcoholic cirrhosis, active alcohol abuse, adenomatous colon polyp, GERD and ?PUD who presented to the [place] ER 03/30 for abdominal pain, nausea and vomiting. GI was consulted for hematemesis. Hematemesis occurred > 72 hours ago. Since that time he has not had additional hematemesis and has been having complicated alcohol withdrawal. Hb stable. The patient has a history of small (Grade 1 EV) and GAVE. Repeat endoscopy was discussed with him at this time, but the patient reports that he does not think he needs it and would like to leave the hospital. The risk of undiagnosed/untreated upper GI bleeding was explained to him, and he understands the risks of not having EGD. He is alert and oriented at this time, and in my opinion he has the capacity to make medical decisions, including refusal of treatment. He did agree to have outpatient EGD and says he will follow with Leonel Lizarraga in hepatology clinic for ongoing care. Alcohol cessation and the risk of ongoing alcohol use was discussed. In the meantime, he may be discharged with pantoprazole 40mg PO BID and lactulose. GI will sign off at this time Normal [facility] Magnesium SerPl-mCncon 04-04 Magnesium [Mass/Vol] 1.7 mg/dL Normal 1.7-2.3 [facility] Comment on above: Order Comment: Berna champion Type: BLOOD SPECIMENOrdering Facility: [facility] Address: [address] [place] [address] Performed By: #### 1 9123-9, 2777-1, 02289-7 ####[facility] LABORATORYCLIA [id number] [facility].[place] [id number] [place] PT panel Coag (PPP)on 2022 INR Coag (PPP) [Relative time] 1.3 {INR} Normal 0.9-1.3 [facility] Comment on above: Order Comment: Berna champion Type: BLOOD SPECIMENOrdering Facility: [facility] Address: [address] [place] [address] Result Comment: Kecia min K Antagonist (VKA) Therapeutic Range: INR 2 to 3 (Target INR of 2.5) Note: For patients treated with VKA drugs, such as warfarin, the [place] [employer] 2012 Guideline recommends a therapeutic INR range of 2 to 3 (target INR of 2.5). This recommendation includes high-risk patients with antiphospholipid syndrome with previous arterial or venous thromboembolism, current-generation mechanical or bioprosthetic aortic heart valve replacement. Note: Patients with mechanical aortic valve replacement and additional risk factors for thromboembolic events (atrial fibrillation, previous thromboembolism, LV dysfunction, hypercoagulable conditions) or an older generation mechanical AVR (i.e., ball in-Cage) or any mechanical MVR should have a INR therapeutic range of 2.5 to 3.5 (target INR of 3). Pinky CAPPS, et al. Chest 2012, 141:7S-47S Monica RA, et al. [facility] 2017, 70: 252-289 Performed By: #### 3 4528-0 ####[facility] LABORATORYCLIA [id number] [place] [address] [place] PT Coag (PPP) [Time] 13.0 s Normal 9.7-13.0 [facility] Comment on above: Order Comment: Berna champion Type: BLOOD SPECIMENOrdering Facility: [facility] Address: [address] [address] Performed By: #### 3 4528-0 ####[facility] [id number] [place] [id number] [place] [facility] Phosphate SerPl-[facility] 04-04 Phosphate [Mass/Vol] 3.5 mg/dL Normal 2.7-4.8 [facility] Comment on above: Order Comment: Speci men Type: BLOOD SPECIMENOrdering Facility: [facility] Address: [address] [address] Performed By: #### 1 9123-9, 2777-1, 99977-6 ####[facility] [id number] [address] AFP [facility] 04-03-2023 AFP [Mass/Vol] 3.4 ng/mL Normal <11.0 [facility] Comment on above: Order Comment: Speci men Type: BLOOD SPECIMENOrdering Facility: [facility] Address: [address] [address] Result Comment: The test is typically used as an aid in managing hepatocellular carcinoma and non-seminomatous testicular cancer when used in conjunction with physical examination, histology, and other clinical evaluation procedures. Normal levels of AFP do not entirely exclude the possibility of the above-mentioned conditions, other malignancies, and chronic liver diseases. The normal range has not been established for newborns. The Alpha-Fetoprotein test was performed using the Siemens Centaur XP chemiluminometric immunoassay method. Results obtained with different assay methods or kits cannot be used interchangeably. Performed By: #### 1 834-1 ####[facility] LABCLIA [id number] [facility] [id number] [place] CBC panel Auto (Bld)on 04-03 Erythrocyte distribution width (RBC) [Ratio] 12.3 % Normal 11.5-15.0 [facility] Comment on above: Order Comment: Speci men Type: BLOOD SPECIMENOrdering Facility: [facility] Address: [address] [address] Performed By: #### 5 8410-2 ####[facility] LABORATORYIA [id number] [place] [address] [place] Hematocrit (Bld) [Volume fraction] 29.7 % Low 39.0-51.0 [facility] Comment on above: Order Comment: Speci men Type: BLOOD SPECIMENOrdering Facility: [facility] Address: [address] [place] [address] Performed By: #### 5 8410-2 ####[facility] [id number] [place] [address] [place] Hemoglobin (Bld) [Mass/Vol] 10.5 g/dL Low 13.0-17.0 [facility] Comment on above: Order Comment: Speci men Type: BLOOD SPECIMENOrdering Facility: [facility] Address: [address] [place] [address] Performed By: #### 5 8410-2 ####[facility] [id number] [address] [place] MCH (RBC) [Entitic mass] 32.4 pg Normal 26.0-34.0 [facility] Comment on above: Order Comment: Speci men Type: BLOOD SPECIMENOrdering Facility: [facility] Address: [address] [place] [address] Performed By: #### 5 8410-2 ####[facility] [id number] [place] [address] [place] MCHC (RBC) [Mass/Vol] 35.4 g/dL Normal 30.5-36.0 [facility] Comment on above: Order Comment: Speci men Type: BLOOD SPECIMENOrdering Facility: [facility] Address: [address] [place] [address] Performed By: #### 5 8410-2 ####[facility] [id number] [address] [place] MCV (RBC) [Entitic vol] 91.7 fL Normal 80.0-100.0 [facility] Comment on above: Order Comment: Speci men Type: BLOOD SPECIMENOrdering Facility: [facility] Address: [address] [address] Performed By: #### 5 8410-2 ####[facility] [id number] [place] [address] [place] Nucleated RBC (Bld) [#/Vol] 10*3/uL Normal <0.01 [facility] Comment on above: Order Comment: Speci men Type: BLOOD SPECIMENOrdering Facility: [facility] Address: [address] [address] Performed By: #### 5 8410-2 ####[facility] [id number] [place] [address] [place] Platelet mean volume (Bld) [Entitic vol] 9.2 fL Normal 9.0-12.7 [facility] Comment on above: Order Comment: Speci men Type: BLOOD SPECIMENOrdering Facility: [facility] Address: [address] [address] Performed By: #### 5 8410-2 ####[facility] [id number] [place] [address] [place] Platelets (Bld) [#/Vol] 38 10*3/uL Low 150-400 [facility] Comment on above: Order Comment: Speci men Type: BLOOD SPECIMENOrdering Facility: [facility] Address: [address] [address] Result Comment: No c lot detected. Performed By: #### 5 8410-2 ####[facility] [id number] [place] [address] [place] RBC (Bld) [#/Vol] 3.24 10*6/uL Low 4.20-6.00 [facility] Comment on above: Order Comment: Speci men Type: BLOOD SPECIMENOrdering Facility: [facility] Address: [address] [address] Performed By: #### 5 8410-2 ####[facility] LABORATORYCLIA [id number] [place] [place] [address] [facility] [place] WBC (Bld) [#/Vol] 3.40 10*3/uL Low 3.70-11.00 [facility] Comment on above: Order Comment: Speci men Type: BLOOD SPECIMENOrdering Facility: [facility] Address: [address] [place] [phone] Performed By: #### 5 8410-2 ####[facility] LABORATORYCLIA [id number] [place] [place] [address] [facility] CONSULT PROGon 04-03-2023 CONSULT PROG HNO ID: [id number] Author: Holly Robbins APRN.RAPHAEL Service: Gastroenterology Author Type: Nurse Practitioner Type: Consult Progress Note Filed: 04/03/2023 2:08 PM Note Text: Brief GI progress note Galindo Snow is a 52 year old alcoholic cirrhosis, active alcohol abuse, adenomatous colon polyp, GERD and ?PUD who presented to the [place] ER 03/30 for abdominal pain, nausea and vomiting. GI was consulted for hematemesis. 1) Alcoholic cirrhosis: POA: Yes 2) Alcohol abuse: POA: Yes 3) Hematemesis: POA: Yes 4) Acute post-hemorrhagic anemia: POA: Yes 5) Severe thrombocytopenia-improving: POA: Yes Interval HPI: Pt still withdrawing and requiring precedex gtt with decreasing requirements. Resting comfortably. NGT in place. Hgb stable at 10.5. No further vomiting or black/bloody stools >48 hrs. Started on Lactulose today. Thrombocytopenia continues (baseline 30-40s) 37->41->44->38 INR 1.2 (04/01), repeat in am AST/ALT ratio consistent with alk hep, kidney function unremarkable Liver Cirrhosis: MELD 3.0: 11 at 04/03/2023 3:58 AM MELD-Na: 10 at 04/03/2023 3:58 AM Calculated from: Serum Creatinine: 0.96 mg/dL (Using min of 1 mg/dL) at 04/03/2023 3:58 AM Serum Sodium: 135 mmol/L at 04/03/2023 3:58 AM Total Bilirubin: 1.5 mg/dL at 04/03/2023 3:58 AM Serum Albumin: 3.5 g/dL at 04/03/2023 3:58 AM INR(ratio): 1.2 at 04/01/2023 5:42 AM Age at listing (hypothetical): 52 years Sex: Male at 04/03/2023 3:58 AM Ascites: None. Hepatic Encephalopathy: Unable to assess, remains on precedex HCC Screening: AFP: 3.4 Will arrange for US abdomen and AFP every 6 months as outpatient Portal Hypertension/Esophageal variceal Screening: Next EGD: Timing to be determined, will arrange once more stable - EGD remains on hold due to withdrawal symptoms, no concern of active bleeding - continue lactulose-titrate for 3-4 Bms daily - continue supportive care and monitoring - Called and updated Anca menjivar via telephone today >15 min was spent wardrobe image consultant Case discussed with Dr. Raghavendra Kirkland [facility] Comprehensive metabolic 2000 panelon 04-03-2023 Albumin [Mass/Vol] 3.5 g/dL Low 3.9-4.9 [facility] Comment on above: Order Comment: Berna champion Type: BLOOD SPECIMENOrdering Facility: [facility] Address: [address] [address] Performed By: #### 2 4323-8, , 2776-08 ####[facility] LABORATORYCLIA [id number] [address] STATES OF [facility] ALP [Catalytic activity/Vol] 145 U/L High 38-113 [facility] Comment on above: Order Comment: Berna champion Type: BLOOD SPECIMENOrdering Facility: [facility] Address: [address] [address] Performed By: #### 2 4323-8, , 2776-08 ####[facility] LABORATORYCLIA [id number] [address] [place] [facility] ALT [Catalytic activity/Vol] 34 U/L Normal 10-54 [facility] Comment on above: Order Comment: Berna champion Type: BLOOD SPECIMENOrdering Facility: [facility] Address: [address] [address] Performed By: #### 2 4323-8, , 2776-08 ####[facility] LABORATORYCLIA [id number] [facility] [place] [address] [place] Anion gap [Moles/Vol] 12 mmol/L Normal 9-18 [facility] Comment on above: Order Comment: Speci men Type: BLOOD SPECIMENOrdering Facility: [facility] Address: [address] [place], [place] [id number] Performed By: #### 2 4323-8, , 2776-08 ####[facility] LABORATORYCLIA [id number] [place] [address] [place] AST [Catalytic activity/Vol] 55 U/L High 14-40 [facility] Comment on above: Order Comment: Speci men Type: BLOOD SPECIMENOrdering Facility: [facility] Address: [address] [place], [place] [id number] Performed By: #### 2 4323-8, , 2776-08 ####[facility] LABORATORYCLIA [id number] [place] [address] [place] Bilirubin [Mass/Vol] 1.5 mg/dL High 0.2-1.3 [facility] Comment on above: Order Comment: Speci men Type: BLOOD SPECIMENOrdering Facility: [facility] Address: [address] [place], [place] [id number] Performed By: #### 2 4323-8, , 2776-08 ####[facility] LABORATORYCLIA [id number] [facility] [place] [address] [place] Calcium [Mass/Vol] 7.9 mg/dL Low 8.5-10.2 [facility] Comment on above: Order Comment: Speci men Type: BLOOD SPECIMENOrdering Facility: [facility] Address: [address] [place], [place] [id number] Performed By: #### 2 4323-8, , 2776-08 ####[facility] LABORATORYCLIA [id number] [place] [address] [place] Chloride [Moles/Vol] 101 mmol/L Normal 97-105 [facility] Comment on above: Order Comment: Speci men Type: BLOOD SPECIMENOrdering Facility: [facility] Address: [address] [place] [address] Performed By: #### 2 4323-8, 60010-8, 2776- ####[facility] LABORATORYCLIA [id number] [place] [address] [place] CO2 [Moles/Vol] 22 mmol/L Normal 22-30 [facility] Comment on above: Order Comment: Speci men Type: BLOOD SPECIMENOrdering Facility: [facility] Address: [address] [place] [address] Performed By: #### 2 4323-8, , 2776-08 ####[facility] LABORATORYCLIA [id number] [address] [id number] [place] Creatinine [Mass/Vol] 0.96 mg/dL Normal 0.73-1.22 [facility] Comment on above: Order Comment: Speci men Type: BLOOD SPECIMENOrdering Facility: [facility] Address: [address] [place] [address] Performed By: #### 2 4323-8, , 2776-08 ####[facility] LABORATORYCLIA [id number] [address] [id number] [facility] Creatinine and Glomerular filtration rate.predicted panel (S/P/Bld) 94 mL/min/1.73m??? Normal >=60 [facility] Comment on above: Order Comment: Speci men Type: BLOOD SPECIMENOrdering Facility: [facility] Address: [address] [place] [address] Result Comment: Puja mated Glomerular Filtration Rate (eGFR) is calculated using the 2020 CKD-EPI creatinine equation. This equation utilizes serum creatinine, sex, and age as parameters. The creatinine assay has traceable calibration to isotope dilution-mass spectrometry. Refer to KDIGO guidelines for clinical interpretation. In patients with unstable renal function, e.g. those with acute kidney injury, the eGFR may not accurately reflect actual GFR. Performed By: #### 2 4323-8, , 2776-08 ####[facility] LABORATORYCLIA [id number] [facility] [place] [address] [place] Glucose [Mass/Vol] 105 mg/dL High 74-99 [facility] Comment on above: Order Comment: Berna champion Type: BLOOD SPECIMENOrdering Facility: [facility] Address: [address] [place], [place] [phone] Result Comment: The [place] [employer] Association (ADA) provides guidance for cutoff values for fasting glucose and random glucose. The ADA defines fasting as no caloric intake for at least 8 hours. Fasting plasma glucose results between 100 to 125 mg/dL indicate increased risk for diabetes (prediabetes). Fasting plasma glucose results greater than or equal to 126 mg/dL meet the criteria for diagnosis of diabetes. In the absence of unequivocal hyperglycemia, results should be confirmed by repeat testing. In a patient with classic symptoms of hyperglycemia or hyperglycemic crisis, random plasma glucose results greater than or equal to 200 mg/dL meet the criteria for diagnosis of diabetes. Reference: Standards of Medical Care in Diabetes 2016, [place] [employer] Association. Diabetes Care. 2016.39(Suppl 1). Performed By: #### 2 4323-8, , 2776-08 ####[facility] [id number] [facility] [place] [address] [place] Potassium [Moles/Vol] 3.6 mmol/L Low 3.7-5.1 [facility] Comment on above: Order Comment: Berna champion Type: BLOOD SPECIMENOrdering Facility: [facility] Address: [address] [place] [phone] Performed By: #### 2 4323-8, , 2776-08 ####[facility] [id number] [facility] [place] [address] [place] Protein [Mass/Vol] 5.9 g/dL Low 6.3-8.0 [facility] Comment on above: Order Comment: Berna champion Type: BLOOD SPECIMENOrdering Facility: [facility] Address: [address] [place], [place] [address], [place] [address] Performed By: #### 2 4323-8, 60268-9, 27702-02 ####[facility] LABORATORYCLIA [id number] [place] [address] [place] Sodium [Moles/Vol] 135 mmol/L Low 136-144 [facility] Comment on above: Order Comment: Speci men Type: BLOOD SPECIMENOrdering Facility: [facility] Address: [address] [facility] [place] [address] Performed By: #### 2 4323-8, , 27702-02 ####[facility] LABORATORYCLIA [id number] [place] [address] [place] Urea nitrogen [Mass/Vol] 12 mg/dL Normal 9-24 [facility] Comment on above: Order Comment: Speci men Type: BLOOD SPECIMENOrdering Facility: [facility] Address: [place] [address] Performed By: #### 2 4323-8, , 27702-02 ####[facility] LABORATORYCLIA [id number] [place] [address] [place] ECG COMPLETEon 04-03-2023 ECG COMPLETE Ventricular Rate : 5 7 BPM Atrial Rate : 57 BPM P-R Interval : 171 ms QRS Duration : 100 ms Q-T Interval : 541 ms QTC Calculation(Bazett) : 527 ms Calculated P [place] : 12 degrees Calculated R [place] : 41 degrees Calculated T [place] : 53 degrees Sinus rhythm Probable left ventricular hypertrophy Prolonged QT interval Abnormal ECG Confirmed by NATALIA HAND M.D. ([id number]) on 04/06/2023 5:56:00 PM NAME : GALINDO SNOW PID : [id number] : 1970 Gender : Male Race : ORD : [id number] Procedure Date : Apr 03 2023 09:11:12 Edit Date : Apr 06 2023 17:56:01 Diagnosis: Sinus rhythm Probable left ventricular hypertrophy Prolonged QT interval Abnormal ECG Confirmed by NATALIA HAND M.D. ([id number]) on 04/06/2023 5:56:00 PM Test Reason : Arrhythmia Location : 300 : EKG ICU Overread By : NATALIA HAND M.D. Edited By : NATALIA HAND M.D. Referred By : LAVELLE ELIZABETH Acquired by : RYAN VALLADARES [facility] Magnesium [facility] 04-03 Magnesium [Mass/Vol] 1.5 mg/dL Low 1.7-2.3 [facility] Comment on above: Order Comment: Speci men Type: BLOOD SPECIMENOrdering Facility: [facility] Address: [address] [address] Performed By: #### 2 4323-8, 53784-4, 2777-1 ####[facility] [id number] [address] [place] [id number] [place] [facility] Phosphate [facility] 04-03 Phosphate [Mass/Vol] 2.6 mg/dL Low 2.7-4.8 [facility] Comment on above: Order Comment: Speci men Type: BLOOD SPECIMENOrdering Facility: [facility] Address: [address] [address] Performed By: #### 2 4323-8, 69662-9, 2777-1 ####[facility] [id number] [address] [place] [id number] [facility] [place] CBC panel Auto (Bld)on 04-02 Erythrocyte distribution width (RBC) [Ratio] 12.5 % Normal 11.5-15.0 [facility] Comment on above: Order Comment: Speci men Type: BLOOD SPECIMENOrdering Facility: [facility] Address: [address] [address] Performed By: #### 5 8410-2 ####[facility] [id number] [address] [place] Hematocrit (Bld) [Volume fraction] 32.1 % Low 39.0-51.0 [facility] Comment on above: Order Comment: Speci men Type: BLOOD SPECIMENOrdering Facility: [facility] Address: [address] [address] Performed By: #### 5 8410-2 ####[facility] [id number] [address] [place] Hemoglobin (Bld) [Mass/Vol] 10.9 g/dL Low 13.0-17.0 [facility] Comment on above: Order Comment: Speci men Type: BLOOD SPECIMENOrdering Facility: [facility] Address: [address] [address] Performed By: #### 5 8410-2 ####[facility] [id number] [address] [place] MCH (RBC) [Entitic mass] 32.1 pg Normal 26.0-34.0 [facility] Comment on above: Order Comment: Speci men Type: BLOOD SPECIMENOrdering Facility: [facility] Address: [address] [place] [address] Performed By: #### 5 8410-2 ####[facility] [id number] [address] [place] MCHC (RBC) [Mass/Vol] 34.0 g/dL Normal 30.5-36.0 [facility] Comment on above: Order Comment: Speci men Type: BLOOD SPECIMENOrdering Facility: [facility] Address: [address] [place] [address] Performed By: #### 5 8410-2 ####[facility] [id number] [address] [place] MCV (RBC) [Entitic vol] 94.4 fL Normal 80.0-100.0 [facility] Comment on above: Order Comment: Speci men Type: BLOOD SPECIMENOrdering Facility: [facility] Address: [address] [place] [address] Performed By: #### 5 8410-2 ####[facility] LABORATORYIA [id number] [address] [place] Nucleated RBC (Bld) [#/Vol] 10*3/uL Normal <0.01 [facility] Comment on above: Order Comment: Speci men Type: BLOOD SPECIMENOrdering Facility: [facility] Address: [address] [place] [address] Performed By: #### 5 8410-2 ####[facility] LABORATORYCLIA [id number] [place] [address] [place] Platelet mean volume (Bld) [Entitic vol] 9.7 fL Normal 9.0-12.7 [facility] Comment on above: Order Comment: Speci men Type: BLOOD SPECIMENOrdering Facility: [facility] Address: [address] [address] Performed By: #### 5 8410-2 ####[facility] [id number] [place] [address] [place] Platelets (Bld) [#/Vol] 44 10*3/uL Low 150-400 [facility] Comment on above: Order Comment: Speci men Type: BLOOD SPECIMENOrdering Facility: [facility] Address: [address] [place] [address] Result Comment: No c lot detected. Performed By: #### 5 8410-2 ####[facility] [id number] [place] [address] [place] RBC (Bld) [#/Vol] 3.40 10*6/uL Low 4.20-6.00 [facility] Comment on above: Order Comment: Speci men Type: BLOOD SPECIMENOrdering Facility: [facility] Address: [address] Performed By: #### 5 8410-2 ####[facility] LABORATORYIA [id number] [place] [id number] [place] WBC (Bld) [#/Vol] 4.30 10*3/uL Normal 3.70-11.00 [facility] Comment on above: Order Comment: Speci men Type: BLOOD SPECIMENOrdering Facility: [facility] Address: [address] [place] [address] Performed By: #### 5 8410-2 ####[facility] LABORATORYCLIA [id number] [facility] [place] [address] [place] CONSULT PROGon 04-02-2023 CONSULT PROG HNO ID: [id number] Author: Holly Robbins APRN.RAPHAEL Service: Gastroenterology Author Type: Nurse Practitioner Type: Consult Progress Note Filed: 04/02/2023 11:32 AM Note Text: Brief GI progress note Galindo Snow is a 52 year old alcoholic cirrhosis, active alcohol abuse, adenomatous colon polyp, GERD and ?PUD who presented to the [place] ER 03/30 for abdominal pain, nausea and vomiting. GI was consulted for hematemesis. 1) Alcoholic cirrhosis: POA: Yes 2) Alcohol abuse: POA: Yes 3) Hematemesis: POA: Yes 4) Acute post-hemorrhagic anemia: POA: Yes 5) Severe thrombocytopenia-improving: POA: Yes Interval HPI: Pt still withdrawing. Attempting to get OOB at time of visit, nursing staff assisting. Drowsy, remains on precedex. Hgb continues to improve. 10.9 today. No further vomiting or black/bloody stools >24 hrs. Thrombocytopenia continues (baseline 30-40s) 37->41->44 INR 1.2 AST/ALT ratio consistent with alk hep, kidney function unremarkable Liver Cirrhosis: MELD 3.0: 9 at 04/02/2023 5:20 AM MELD-Na: 9 at 04/02/2023 5:20 AM Calculated from: Serum Creatinine: 1.02 mg/dL at 04/02/2023 5:20 AM Serum Sodium: 139 mmol/L (Using max of 137 mmol/L) at 04/02/2023 5:20 AM Total Bilirubin: 1.2 mg/dL at 04/02/2023 5:20 AM Serum Albumin: 3.6 g/dL (Using max of 3.5 g/dL) at 04/02/2023 5:20 AM INR(ratio): 1.2 at 04/01/2023 5:42 AM Age at listing (hypothetical): 52 years Sex: Male at 04/02/2023 5:20 AM Ascites: NPO for now given withdrawal and admission for hematemesis. No ascites on imaging. Hepatic Encephalopathy: Unable to assess, currently on precedex and not responding HCC Screening: AFP: <3.0 (09/21/22) will add to morning labs Will arrange for US abdomen and AFP every 6 months as outpatient Portal Hypertension/Esophageal variceal Screening: Next EGD: Timing to be determined, will arrange once more stable - EGD remains on hold due to withdrawal symptoms, no concern of active bleeding - may require initiation of lactulose enemas if unable to take po later today - will discuss stopping octreotide (has received >72 hrs) - continue supportive care and monitoring - will update via telephone today Case to be discussed with Dr. Mabry Addendum 1120: Discussed case with Dr. Mabry, ok to stop octreotide and place NGT for med/nutritional purposes. Once placed, recommend lactulose daily -BID. Titrate for 3-4 bms daily. Normal [facility] Comprehensive metabolic 2000 panelon 04-02-2023 Albumin [Mass/Vol] 3.6 g/dL Low 3.9-4.9 [facility] Comment on above: Order Comment: Berna champion Type: BLOOD SPECIMENOrdering Facility: [facility] Address: [address] [address] Performed By: #### 2 4323-8, , 2776-08 ####[facility] LABORATORYCLIA [id number] [place] [address] [place] ALP [Catalytic activity/Vol] 102 U/L Normal 38-113 [facility] Comment on above: Order Comment: Berna champion Type: BLOOD SPECIMENOrdering Facility: [facility] Address: [address] [address] Performed By: #### 2 4323-8, 53105-1, 2776- ####[facility] LABORATORYCLIA [id number] [place] [address] [place] ALT [Catalytic activity/Vol] 38 U/L Normal 10-54 [facility] Comment on above: Order Comment: Berna champion Type: BLOOD SPECIMENOrdering Facility: [facility] Address: [address] [address] Performed By: #### 2 4323-8, , 2776-08 ####[facility] LABORATORYCLIA [id number] [facility] [place] [address] [place] Anion gap [Moles/Vol] 8 mmol/L Low 9-18 [facility] Comment on above: Order Comment: Speci men Type: BLOOD SPECIMENOrdering Facility: [facility] Address: [address] [place] [address] Performed By: #### 2 4323-8, , 2776-08 ####[facility] LABORATORYCLIA [id number] [place] [address] [place] AST [Catalytic activity/Vol] 61 U/L High 14-40 [facility] Comment on above: Order Comment: Speci men Type: BLOOD SPECIMENOrdering Facility: [facility] Address: [address] [place] [address] Performed By: #### 2 4323-8, , 2776-08 ####[facility] [id number] [facility] [place] [address] [place] Bilirubin [Mass/Vol] 1.2 mg/dL Normal 0.2-1.3 [facility] Comment on above: Order Comment: Speci men Type: BLOOD SPECIMENOrdering Facility: [facility] Address: [address] [place] [address] Performed By: #### 2 4323-8, , 2776-08 ####[facility] LABORATORYIA [id number] [facility] [place] [address] [place] Calcium [Mass/Vol] 7.6 mg/dL Low 8.5-10.2 [facility] Comment on above: Order Comment: Speci men Type: BLOOD SPECIMENOrdering Facility: [facility] Address: [address] [place] [address] Performed By: #### 2 4323-8, , 2776-08 ####[facility] LABORATORYCLIA [id number] [facility] [place] [address] [place] Chloride [Moles/Vol] 108 mmol/L High 97-105 [facility] Comment on above: Order Comment: Speci men Type: BLOOD SPECIMENOrdering Facility: [facility] Address: [address] [id number] Performed By: #### 2 4323-8, , 2776-08 ####[facility] LABORATORYCLIA [id number] [place] [address] [place] CO2 [Moles/Vol] 23 mmol/L Normal 22-30 [facility] Comment on above: Order Comment: Speci men Type: BLOOD SPECIMENOrdering Facility: [facility] Address: [address] Performed By: #### 2 4323-8, , 2776-08 ####[facility] LABORATORYCLIA [id number] [place] [address] [place] [facility] Creatinine [Mass/Vol] 1.02 mg/dL Normal 0.73-1.22 [facility] Comment on above: Order Comment: Speci men Type: BLOOD SPECIMENOrdering Facility: [facility] Address: [address] [place] [address] Performed By: #### 2 4323-8, , 2776-08 ####[facility] LABORATORYCLIA [id number] [place] [address] [facility] Creatinine and Glomerular filtration rate.predicted panel (S/P/Bld) 87 mL/min/1.73m??? Normal >=60 [facility] Comment on above: Order Comment: Speci men Type: BLOOD SPECIMENOrdering Facility: [facility] Address: [address] [place], [place] [address] Result Comment: Puja mated Glomerular Filtration Rate (eGFR) is calculated using the 2020 CKD-EPI creatinine equation. This equation utilizes serum creatinine, sex, and age as parameters. The creatinine assay has traceable calibration to isotope dilution-mass spectrometry. Refer to KDIGO guidelines for clinical interpretation. In patients with unstable renal function, e.g. those with acute kidney injury, the eGFR may not accurately reflect actual GFR. Performed By: #### 2 4323-8, , 2776-08 ####[facility] LABORATORYCLIA [id number] [facility] [place] [address] [place] Glucose [Mass/Vol] 125 mg/dL High 74-99 [facility] Comment on above: Order Comment: Speci men Type: BLOOD SPECIMENOrdering Facility: [facility] Address: [address] [place] [id number] Result Comment: The [place] Diabetes Association (ADA) provides guidance for cutoff values for fasting glucose and random glucose. The ADA defines fasting as no caloric intake for at least 8 hours. Fasting plasma glucose results between 100 to 125 mg/dL indicate increased risk for diabetes (prediabetes). Fasting plasma glucose results greater than or equal to 126 mg/dL meet the criteria for diagnosis of diabetes. In the absence of unequivocal hyperglycemia, results should be confirmed by repeat testing. In a patient with classic symptoms of hyperglycemia or hyperglycemic crisis, random plasma glucose results greater than or equal to 200 mg/dL meet the criteria for diagnosis of diabetes. Reference: Standards of Medical Care in Diabetes 2016, [place] [employer] Association. Diabetes Care. 2016.39(Suppl 1). Performed By: #### 2 4323-8, , 2776-08 ####[facility] LABORATORYIA [id number] [place] [address] [place] Potassium [Moles/Vol] 4.3 mmol/L Normal 3.7-5.1 [facility] Comment on above: Order Comment: Speci men Type: BLOOD SPECIMENOrdering Facility: [facility] Address: [address] [place] [address] Performed By: #### 2 4323-8, , 2776-08 ####[facility] LABORATORYIA [id number] [facility] [place] [address] [place] Protein [Mass/Vol] 5.9 g/dL Low 6.3-8.0 [facility] Comment on above: Order Comment: Speci men Type: BLOOD SPECIMENOrdering Facility: [facility] Address: [address] [place] [id number] Performed By: #### 2 4323-8, , 2776-08 ####[facility] LABORATORYIA [id number] [place] [address] [place] Sodium [Moles/Vol] 139 mmol/L Normal 136-144 [facility] Comment on above: Order Comment: Speci men Type: BLOOD SPECIMENOrdering Facility: [facility] Address: [address] [place], [place] [address] Performed By: #### 2 4323-8, , 2776-08 ####[facility] [id number] [place] [address] [place] Urea nitrogen [Mass/Vol] 13 mg/dL Normal 9-24 [facility] Comment on above: Order Comment: Speci men Type: BLOOD SPECIMENOrdering Facility: [facility] Address: [address] [place], [place] [address] Performed By: #### 2 4323-8, , 2776-08 ####[facility] [id number] [place] [address] [place] Magnesium SerPl-mCncon 04-02 Magnesium [Mass/Vol] 2.1 mg/dL Normal 1.7-2.3 [facility] Comment on above: Order Comment: Speci men Type: BLOOD SPECIMENOrdering Facility: [facility] Address: [address] [place], [place] [address] Performed By: #### 2 4323-8, , 2776-08 ####[facility] [id number] [place] [address] [place] Phosphate SerPl-mCncon 04-02 Phosphate [Mass/Vol] 3.0 mg/dL Normal 2.7-4.8 [facility] Comment on above: Order Comment: Speci men Type: BLOOD SPECIMENOrdering Facility: [facility] Address: [address] [place], [place] [address] Performed By: #### 2 4323-8, , 2777-1 ####[facility] LABORATORYIA [id number] [place] [address] [place] XR ABDOMEN 1V SUPINEon 04-02 XR ABDOMEN 1V SUPINE * * *Final Report* * * DATE OF EXAM: Apr 02 2023 12:46PM VHX 5289 - XR ABDOMEN 1V SUPINE / PROCEDURE REASON: Nausea/vomiting * * * * Physician Interpretation * * * * ABDOMINAL RADIOGRAPHS HISTORY: Nausea/vomiting. TECHNIQUE: 1 view(s) of the abdomen were obtained. COMPARISON: No available comparisons. RESULT: NG tube tip in the gastric body and side port below the GE junction. No dilated loops of bowel. IMPRESSION: See result. Sock Lining Examiner: REHAN Transcribe Date/Time: Apr 02 2023 2:02P Dictated by : KRISTINE ACEVEDO MD This examination was interpreted and the report reviewed and electronically signed by: KRISTINE ACEVEDO MD on Apr 02 2023 2:03PM EST [id number] Normal [facility] CBC panel Auto (Bld)on 04-01 Erythrocyte distribution width (RBC) [Ratio] 12.8 % Normal 11.5-15.0 [facility] Comment on above: Order Comment: Speci men Type: BLOOD SPECIMENOrdering Facility: [facility] Address: [address] [address] Performed By: #### 5 8410-2 ####[facility] LABORATORYIA [id number] [place] [id number] [place] Hematocrit (Bld) [Volume fraction] 30.9 % Low 39.0-51.0 [facility] Comment on above: Order Comment: Speci men Type: BLOOD SPECIMENOrdering Facility: [facility] Address: [address] [place] [address] Performed By: #### 5 8410-2 ####[facility] LABORATORYIA [id number] [place] [address] [place] Hemoglobin (Bld) [Mass/Vol] 10.5 g/dL Low 13.0-17.0 [facility] Comment on above: Order Comment: Speci men Type: BLOOD SPECIMENOrdering Facility: [facility] Address: [address] [address] Performed By: #### 5 8410-2 ####[facility] [id number] [address] MCH (RBC) [Entitic mass] 32.5 pg Normal 26.0-34.0 [facility] Comment on above: Order Comment: Speci men Type: BLOOD SPECIMENOrdering Facility: [facility] Address: [address] [address] Performed By: #### 5 8410-2 ####[facility] [id number] [address] [place] MCHC (RBC) [Mass/Vol] 34.0 g/dL Normal 30.5-36.0 [facility] Comment on above: Order Comment: Speci men Type: BLOOD SPECIMENOrdering Facility: [facility] Address: [address] [place] [address] Performed By: #### 5 8410-2 ####[facility] [id number] [address] [place] MCV (RBC) [Entitic vol] 95.7 fL Normal 80.0-100.0 [facility] Comment on above: Order Comment: Speci men Type: BLOOD SPECIMENOrdering Facility: [facility] Address: [address] [address] Performed By: #### 5 8410-2 ####[facility] [id number] [address] [place] Nucleated RBC (Bld) [#/Vol] 10*3/uL Normal <0.01 [facility] Comment on above: Order Comment: Speci men Type: BLOOD SPECIMENOrdering Facility: [facility] Address: [address] [address] Performed By: #### 5 8410-2 ####[facility] [id number] [place] [address] [place] Platelet mean volume (Bld) [Entitic vol] 8.9 fL Low 9.0-12.7 [facility] Comment on above: Order Comment: Speci men Type: BLOOD SPECIMENOrdering Facility: [facility] Address: [address] [place] [address] Performed By: #### 5 8410-2 ####[facility] [id number] [place] [address] [place] Platelets (Bld) [#/Vol] 39 10*3/uL Low 150-400 [facility] Comment on above: Order Comment: Speci men Type: BLOOD SPECIMENOrdering Facility: [facility] Address: [address] [place] [address] Result Comment: No c lot detected. Performed By: #### 5 8410-2 ####[facility] [id number] [place] [address] [place] RBC (Bld) [#/Vol] 3.23 10*6/uL Low 4.20-6.00 [facility] Comment on above: Order Comment: Speci men Type: BLOOD SPECIMENOrdering Facility: [facility] Address: [address] [place] [address] Performed By: #### 5 8410-2 ####[facility] [id number] [place] [address] [place] WBC (Bld) [#/Vol] 3.35 10*3/uL Low 3.70-11.00 [facility] Comment on above: Order Comment: Speci men Type: BLOOD SPECIMENOrdering Facility: [facility] Address: [address] [place] [address] Performed By: #### 5 8410-2 ####[facility] [id number] [address] [place] Erythrocyte distribution width (RBC) [Ratio] 12.7 % Normal 11.5-15.0 [facility] Comment on above: Order Comment: Speci men Type: BLOOD SPECIMENOrdering Facility: [facility] Address: [address] [address] Performed By: #### 5 8410-2 ####[facility] LABORATORYIA [id number] [address] [place] Hematocrit (Bld) [Volume fraction] 30.3 % Low 39.0-51.0 [facility] Comment on above: Order Comment: Speci men Type: BLOOD SPECIMENOrdering Facility: [facility] Address: [address] [place] [address] Performed By: #### 5 8410-2 ####[facility] [id number] [address] [place] Hemoglobin (Bld) [Mass/Vol] 10.1 g/dL Low 13.0-17.0 [facility] Comment on above: Order Comment: Speci men Type: BLOOD SPECIMENOrdering Facility: [facility] Address: [address] [place] [address] Performed By: #### 5 8410-2 ####[facility] [id number] [address] [place] MCH (RBC) [Entitic mass] 32.0 pg Normal 26.0-34.0 [facility] Comment on above: Order Comment: Speci men Type: BLOOD SPECIMENOrdering Facility: [facility] Address: [address] [address] Performed By: #### 5 8410-2 ####[facility] LABORATORYIA [id number] [address] [place] MCHC (RBC) [Mass/Vol] 33.3 g/dL Normal 30.5-36.0 [facility] Comment on above: Order Comment: Speci men Type: BLOOD SPECIMENOrdering Facility: [facility] Address: [address] [address] Performed By: #### 5 8410-2 ####[facility] LABORATORYIA [id number] [facility] [place] MCV (RBC) [Entitic vol] 95.9 fL Normal 80.0-100.0 [facility] Comment on above: Order Comment: Speci men Type: BLOOD SPECIMENOrdering Facility: [facility] Address: [address] [address] Performed By: #### 5 8410-2 ####[facility] LABORATORYIA [id number] [facility] [place] Nucleated RBC (Bld) [#/Vol] 10*3/uL Normal <0.01 [facility] Comment on above: Order Comment: Speci men Type: BLOOD SPECIMENOrdering Facility: [facility] Address: [address] [place] [address] Performed By: #### 5 8410-2 ####[facility] [id number] [address] [place] Platelet mean volume (Bld) [Entitic vol] 9.6 fL Normal 9.0-12.7 [facility] Comment on above: Order Comment: Speci men Type: BLOOD SPECIMENOrdering Facility: [facility] Address: [address] [place] [address] Performed By: #### 5 8410-2 ####[facility] [id number] [address] [place] Platelets (Bld) [#/Vol] 41 10*3/uL Low 150-400 [facility] Comment on above: Order Comment: Speci men Type: BLOOD SPECIMENOrdering Facility: [facility] Address: [address] [place] [address] Result Comment: No c lot detected. Performed By: #### 5 8410-2 ####[facility] [id number] [facility].[address] [place] RBC (Bld) [#/Vol] 3.16 10*6/uL Low 4.20-6.00 [facility] Comment on above: Order Comment: Speci men Type: BLOOD SPECIMENOrdering Facility: [facility] Address: [address] [id number] Performed By: #### 5 8410-2 ####[facility] [id number] [address] [place] WBC (Bld) [#/Vol] 2.62 10*3/uL Low 3.70-11.00 [facility] Comment on above: Order Comment: Speci men Type: BLOOD SPECIMENOrdering Facility: [facility] Address: [address] [place] [address] Performed By: #### 5 8410-2 ####[facility] LABORATORYCLIA [id number] [place] [id number] [facility] CONSULT PROGon 04-01-2023 CONSULT PROG HNO ID: [id number] Author: Zoya Benjamin APRN.[employer] ADMINISTRATOR Service: Gastroenterology Author Type: Nurse Practitioner Type: Consult Progress Note Filed: 04/01/2023 10:27 AM Note Text: Brief GI progress note Galindo Snow is a 52 year old alcoholic cirrhosis, active alcohol abuse, adenomatous colon polyp, GERD and ?PUD who presented to the [place] ER early this morning for abdominal pain, nausea and vomiting. GI was consulted for hematemesis. 1) Alcoholic cirrhosis: POA: Yes 2) Alcohol abuse: POA: Yes 3) Hematemesis: POA: Yes 4) Acute post-hemorrhagic anemia: POA: Yes 5) Severe thrombocytopenia: POA: Yes Interval HPI: Pt resting in bed peacefully, not responding to questions. Currently on precedex. During afternoon and evening of 03/31 patients withdrawal symptoms became worse requiring more frequent lorazepam dosing. He was a code narcisa requiring haldol and a sitter initiated. ICU was asked by nursing to evaluate due to concern for worsening withdrawal. In just hours patients symptoms have worsened. Currently he is not violent or agitated but increasingly confused, impulsive, with notable tremors and very difficult to redirect. Patient will be taken to ICU for phenobarbital taper initiation along with possible precedex infusion for safe control of etoh withdrawal Hgb stable at 10 since 03/30 No further vomiting or black/bloody stools Thrombocytopenia continues (baseline 30-40s) 37->41 INR 1.1 LFTs improved slightly, kidney function unremarkable Liver Cirrhosis: MELD 3.0: 8 at 04/01/2023 5:42 AM MELD-Na: 8 at 04/01/2023 5:42 AM Calculated from: Serum Creatinine: 0.93 mg/dL (Using min of 1 mg/dL) at 04/01/2023 5:42 AM Serum Sodium: 139 mmol/L (Using max of 137 mmol/L) at 04/01/2023 5:42 AM Total Bilirubin: 0.9 mg/dL (Using min of 1 mg/dL) at 04/01/2023 5:42 AM Serum Albumin: 3.5 g/dL at 04/01/2023 5:42 AM INR(ratio): 1.2 at 04/01/2023 5:42 AM Age at listing (hypothetical): 52 years Sex: Male at 04/01/2023 5:42 AM Ascites: NPO for now given withdrawal and admission for hematemesis. No ascites on imaging Hepatic Encephalopathy: Unable to assess, currently on precedex and not responding HCC Screening: AFP: <3.0 (09/21/22) will add to morning labs Will arrange for US abdomen and AFP every 6 months as outpatient Portal Hypertension/Esophageal variceal Screening: Next EGD: Timing to be determined - EGD cancelled today due to withdrawal symptoms, no recent visible bleeding - continue supportive care and monitoring Discussed case with Dr. Raghavendra Kirkland [facility] Comprehensive metabolic 2000 panelon 04-01-2023 Albumin [Mass/Vol] 3.5 g/dL Low 3.9-4.9 [facility] Comment on above: Order Comment: Berna champion Type: BLOOD SPECIMENOrdering Facility: [facility] Address: [address] [place] [address] Performed By: #### 2 4323-8, 80070-7, 2777-1 ####[facility] LABORATORYCLIA [id number] [facility] [place] [address] [place] ALP [Catalytic activity/Vol] 94 U/L Normal 38-113 [facility] Comment on above: Order Comment: Berna champion Type: BLOOD SPECIMENOrdering Facility: [facility] Address: [address] Performed By: #### 2 4323-8, , 2776-08 ####[facility] LABORATORYCLIA [id number] [place] [address] [place] ALT [Catalytic activity/Vol] 35 U/L Normal 10-54 [facility] Comment on above: Order Comment: Speci men Type: BLOOD SPECIMENOrdering Facility: [facility] Address: [address] [address] Performed By: #### 2 4323-8, , 2776-08 ####[facility] LABORATORYCLIA [id number] [place] [address] [place] Anion gap [Moles/Vol] 7 mmol/L Low 9-18 [facility] Comment on above: Order Comment: Speci men Type: BLOOD SPECIMENOrdering Facility: [facility] Address: [address] [address] Performed By: #### 2 4323-8, , 2776-08 ####[facility] [id number] [place] [address] [place] AST [Catalytic activity/Vol] 64 U/L High 14-40 [facility] Comment on above: Order Comment: Speci men Type: BLOOD SPECIMENOrdering Facility: [facility] Address: [address] [address] Performed By: #### 2 4323-8, , 2776-08 ####[facility] LABORATORYCLIA [id number] [place] [address] [place] Bilirubin [Mass/Vol] 0.9 mg/dL Normal 0.2-1.3 [facility] Comment on above: Order Comment: Speci men Type: BLOOD SPECIMENOrdering Facility: [facility] Address: [address] [address] Performed By: #### 2 4323-8, , 2776-08 ####[facility] LABORATORYCLIA [id number] [facility] [place] [address] [place] Calcium [Mass/Vol] 7.4 mg/dL Low 8.5-10.2 [facility] Comment on above: Order Comment: Speci men Type: BLOOD SPECIMENOrdering Facility: [facility] Address: [address] [place] [address] Performed By: #### 2 4323-8, , 2776-08 ####[facility] LABORATORYCLIA [id number] [place] [address] [place] Chloride [Moles/Vol] 107 mmol/L High 97-105 [facility] Comment on above: Order Comment: Speci men Type: BLOOD SPECIMENOrdering Facility: [facility] Address: [address] [place] [address] Performed By: #### 2 4323-8, , 2776-08 ####[facility] LABORATORYIA [id number] [place] [id number] [place] CO2 [Moles/Vol] 25 mmol/L Normal 22-30 [facility] Comment on above: Order Comment: Speci men Type: BLOOD SPECIMENOrdering Facility: [facility] Address: [address] [place] [address] Performed By: #### 2 4323-8, , 2776-08 ####[facility] LABORATORYIA [id number] [place] [address] [place] Creatinine [Mass/Vol] 0.93 mg/dL Normal 0.73-1.22 [facility] Comment on above: Order Comment: Speci men Type: BLOOD SPECIMENOrdering Facility: [facility] Address: [address] [place] [address] Performed By: #### 2 4323-8, , 2776-08 ####[facility] LABORATORYIA [id number] [place] [address] [place] Creatinine and Glomerular filtration rate.predicted panel (S/P/Bld) 98 mL/min/1.73m??? Normal >=60 [facility] Comment on above: Order Comment: Berna champion Type: BLOOD SPECIMENOrdering Facility: [facility] Address: [place] [address] Result Comment: Puja mated Glomerular Filtration Rate (eGFR) is calculated using the 2020 CKD-EPI creatinine equation. This equation utilizes serum creatinine, sex, and age as parameters. The creatinine assay has traceable calibration to isotope dilution-mass spectrometry. Refer to KDIGO guidelines for clinical interpretation. In patients with unstable renal function, e.g. those with acute kidney injury, the eGFR may not accurately reflect actual GFR. Performed By: #### 2 4323-8, 23620-8, 2776-08 ####[facility] LABORATORYCLIA [id number] [facility] [place] [address] [place] Glucose [Mass/Vol] 133 mg/dL High 74-99 [facility] Comment on above: Order Comment: Berna champion Type: BLOOD SPECIMENOrdering Facility: [facility] Address: [place] [address] Result Comment: The [place] Diabetes Association (ADA) provides guidance for cutoff values for fasting glucose and random glucose. The ADA defines fasting as no caloric intake for at least 8 hours. Fasting plasma glucose results between 100 to 125 mg/dL indicate increased risk for diabetes (prediabetes). Fasting plasma glucose results greater than or equal to 126 mg/dL meet the criteria for diagnosis of diabetes. In the absence of unequivocal hyperglycemia, results should be confirmed by repeat testing. In a patient with classic symptoms of hyperglycemia or hyperglycemic crisis, random plasma glucose results greater than or equal to 200 mg/dL meet the criteria for diagnosis of diabetes. Reference: Standards of Medical Care in Diabetes 2016, [place] [employer]. Diabetes Care. 2016.39(Suppl 1). Performed By: #### 2 4323-8, 14013-0, 2776-08 ####[facility] LABORATORYCLIA [id number] [facility].[place] [id number] [place] Potassium [Moles/Vol] 4.3 mmol/L Normal 3.7-5.1 [facility] Comment on above: Order Comment: Berna champino Type: BLOOD SPECIMENOrdering Facility: [facility] Address: [address] Performed By: #### 2 4323-8, , 2776-08 ####[facility] [id number] [place] [address] [place] Protein [Mass/Vol] 5.8 g/dL Low 6.3-8.0 [facility] Comment on above: Order Comment: Speci men Type: BLOOD SPECIMENOrdering Facility: [facility] Address: [address] [address] Performed By: #### 2 4323-8, , 2776-08 ####[facility] [id number] [place] [id number] [place] Sodium [Moles/Vol] 139 mmol/L Normal 136-144 [facility] Comment on above: Order Comment: Speci men Type: BLOOD SPECIMENOrdering Facility: [facility] Address: [address] [place] [address] Performed By: #### 2 4323-8, , 2776-08 ####[facility] [id number] [place] [id number] [place] Urea nitrogen [Mass/Vol] 13 mg/dL Normal 9-24 [facility] Comment on above: Order Comment: Speci men Type: BLOOD SPECIMENOrdering Facility: [facility] Address: [address] [place] [address] Performed By: #### 2 4323-8, , 2776-08 ####[facility] LABORATORYIA [id number] [place] [address] [place] ECG COMPLETEon 04-01-2023 ECG COMPLETE Ventricular Rate : 6 0 BPM Atrial Rate : 60 BPM P-R Interval : 159 ms QRS Duration : 97 ms Q-T Interval : 500 ms QTC Calculation(Bazett) : 500 ms Calculated P [place] : 7 degrees Calculated R [place] : 38 degrees Calculated T [place] : 46 degrees Sinus rhythm Borderline prolonged QT interval Borderline ECG Confirmed by NATALIA HAND M.D. ([id number]) on 04/01/2023 10:28:12 AM NAME : GALINDO SNOW PID : [id number] : 1970 Gender : Male Race : ORD : [id number] Procedure Date : Apr 01 2023 08:09:18 Edit Date : Apr 01 2023 10:28:14 Diagnosis: Sinus rhythm Borderline prolonged QT interval Borderline ECG Confirmed by NATALIA HAND M.D. ([id number]) on 04/01/2023 10:28:12 AM Test Reason : Check QT Location : 300 : EKG ICU Overread By : NATALIA HAND M.D. Edited By : NATALIA HAND M.D. Referred By : LAVELLE ELIZABETH Acquired by : ANCA FOWLER [facility] Magnesium SerPl-mCncon 04-01 Magnesium [Mass/Vol] 2.2 mg/dL Normal 1.7-2.3 [facility] Comment on above: Order Comment: Berna champion Type: BLOOD SPECIMENOrdering Facility: [facility] Address: [address] [address] Performed By: #### 2 4323-8, 21925-3, 2777-1 ####[facility] LABORATORYCLIA [id number] [facility].[address] [id number] [facility] PT panel Coag (PPP)on 2022 INR Coag (PPP) [Relative time] 1.2 {INR} Normal 0.9-1.3 [facility] Comment on above: Order Comment: Berna champion Type: BLOOD SPECIMENOrdering Facility: [facility] Address: [address] [address] Result Comment: Kecia min K Antagonist (VKA) Therapeutic Range: INR 2 to 3 (Target INR of 2.5) Note: For patients treated with VKA drugs, such as warfarin, the [employer] 2012 Guideline recommends a therapeutic INR range of 2 to 3 (target INR of 2.5). This recommendation includes high-risk patients with antiphospholipid syndrome with previous arterial or venous thromboembolism, current-generation mechanical or bioprosthetic aortic heart valve replacement. Note: Patients with mechanical aortic valve replacement and additional risk factors for thromboembolic events (atrial fibrillation, previous thromboembolism, LV dysfunction, hypercoagulable conditions) or an older generation mechanical AVR (i.e., ball in-Cage) or any mechanical MVR should have a INR therapeutic range of 2.5 to 3.5 (target INR of 3). Pinky CAPPS, et al. Chest 2012, 141:7S-47S Monica JARAMILLO, et al. [facility] 2017, 70: 252-289 Performed By: #### 3 4528-0 ####[facility] LABORATORYIA [id number] [place] [address] [place] PT Coag (PPP) [Time] 12.6 s Normal 9.7-13.0 [facility] Comment on above: Order Comment: Speci men Type: BLOOD SPECIMENOrdering Facility: [facility] Address: [address] [place] [address] Performed By: #### 3 4528-0 ####[facility] [id number] [place] [address] [place] Phosphate SerPl-mCncon 04-01 Phosphate [Mass/Vol] 3.3 mg/dL Normal 2.7-4.8 [facility] Comment on above: Order Comment: Speci men Type: BLOOD SPECIMENOrdering Facility: [facility] Address: [address] [place] [address] Performed By: #### 2 4323-8, 75522-0, 2777-1 ####[facility] [id number] [address] [place] CBC panel Auto (Bld)on 03-31 Erythrocyte distribution width (RBC) [Ratio] 12.5 % Normal 11.5-15.0 [facility] Comment on above: Order Comment: Speci men Type: BLOOD SPECIMENOrdering Facility: [facility] Address: [address] [place] [address] Performed By: #### 5 8410-2 ####[facility] LABORATORYIA [id number] [place] [address] [place] Hematocrit (Bld) [Volume fraction] 30.1 % Low 39.0-51.0 [facility] Comment on above: Order Comment: Speci men Type: BLOOD SPECIMENOrdering Facility: [facility] Address: [address] [place] [address] Performed By: #### 5 8410-2 ####[facility] LABORATORYCLIA [id number] [address] [place] Hemoglobin (Bld) [Mass/Vol] 10.2 g/dL Low 13.0-17.0 [facility] Comment on above: Order Comment: Speci men Type: BLOOD SPECIMENOrdering Facility: [facility] Address: [address] [place] [address] Performed By: #### 5 8410-2 ####[facility] [id number] [address] [place] MCH (RBC) [Entitic mass] 32.1 pg Normal 26.0-34.0 [facility] Comment on above: Order Comment: Speci men Type: BLOOD SPECIMENOrdering Facility: [facility] Address: [address] [place] [address] Performed By: #### 5 8410-2 ####[facility] LABORATORYIA [id number] [address] [place] MCHC (RBC) [Mass/Vol] 33.9 g/dL Normal 30.5-36.0 [facility] Comment on above: Order Comment: Speci men Type: BLOOD SPECIMENOrdering Facility: [facility] Address: [address] [place] [address] Performed By: #### 5 8410-2 ####[facility] LABORATORYIA [id number] [address] [place] MCV (RBC) [Entitic vol] 94.7 fL Normal 80.0-100.0 [facility] Comment on above: Order Comment: Speci men Type: BLOOD SPECIMENOrdering Facility: [facility] Address: [address] [place] [address] Performed By: #### 5 8410-2 ####[facility] LABORATORYCLIA [id number] [place] [address] [place] Nucleated RBC (Bld) [#/Vol] 10*3/uL Normal <0.01 [facility] Comment on above: Order Comment: Speci men Type: BLOOD SPECIMENOrdering Facility: [facility] Address: [address] [place] [address] Performed By: #### 5 8410-2 ####[facility] [id number] [place] [address] [place] Platelet mean volume (Bld) [Entitic vol] 9.8 fL Normal 9.0-12.7 [facility] Comment on above: Order Comment: Speci men Type: BLOOD SPECIMENOrdering Facility: [facility] Address: [address] [place] [address] Performed By: #### 5 8410-2 ####[facility] [id number] [facility] [place] [address] [place] Platelets (Bld) [#/Vol] 37 10*3/uL Low 150-400 [facility] Comment on above: Order Comment: Speci men Type: BLOOD SPECIMENOrdering Facility: [facility] Address: [address] [place] [address] Result Comment: No c lot detected. Performed By: #### 5 8410-2 ####[facility] [id number] [place] [place] [address] [place] RBC (Bld) [#/Vol] 3.18 10*6/uL Low 4.20-6.00 [facility] Comment on above: Order Comment: Speci men Type: BLOOD SPECIMENOrdering Facility: [facility] Address: [address] [place] [address] Performed By: #### 5 8410-2 ####[facility] LABORATORYIA [id number] [place] [address] [place] WBC (Bld) [#/Vol] 2.63 10*3/uL Low 3.70-11.00 [facility] Comment on above: Order Comment: Speci men Type: BLOOD SPECIMENOrdering Facility: [facility] Address: [place] [address] Performed By: #### 5 8410-2 ####[facility] LABORATORYCLIA [id number] [facility] [place] [address] [facility] CONSULT PROGon 03-31-2023 CONSULT PROG HNO ID: [id number] Author: Jewel Browning MD Service: Gastroenterology Author Type: Physician Type: Consult Progress Note Filed: 03/31/2023 2:02 PM Note Text: CONSULT PROGRESS NOTE SERVICE DATE: 03/31/2023 SERVICE TIME: 1:54 PM CONSULTING SERVICE: GI Subjective INTERVAL HPI: Felton continues to feel well. No interval episodes of hematemesis. He denies melena, hematochezia and abdominal pain. Current Facility-Administered Medications Medication Dose Route Frequency NaCl 0.9% iv flush bag 20 mL INTRAVENOUS PRN pantoprazole 40 mg injection (PROTONIX) 40 mg INTRAVENOUS BID AC (0600/1600) octreotide iv infusion 500 mcg in NaCl 0.9% 100 mL (SandoSTATIN) 50 mcg/hr INTRAVENOUS CONTINUOUS LORazepam 1 mg injection (ATIVAN) 1 mg INTRAVENOUS q 2 H PRN Or LORazepam 2 mg injection (ATIVAN) 2 mg INTRAVENOUS q 2 H PRN Or LORazepam 2 mg injection (ATIVAN) 2 mg INTRAVENOUS q 1 H PRN thiamine 200 mg in NaCl 0.9% 50 mL (VITAMIN B1) 200 mg INTRAVENOUS q 8 H Followed by [START ON 04/02/2023] thiamine 100 mg tab(s) (VITAMIN B1) 100 mg ORAL/FEEDING TUBE TID folic acid 1 mg tab(s) 1 mg ORAL DAILY adult multivitamin 10 mL, folic acid 1 mg in NaCl 0.9% 1,000 mL INTRAVENOUS q 24 HR magnesium sulfate iv piggyback in sterile water 2 g 50 mL 2 g INTRAVENOUS q 24 HR haloperidol lactate 5 mg short-acting injection (HALDOL) 5 mg INTRAVENOUS q 6 H PRN [START ON 04/01/2023] cefTRIAXone 1 g in D5W 100 mL Vial-Bag (ROCEPHIN) 1 g INTRAVENOUS q 24 H Objective PHYSICAL EXAM: BP 126/61 Pulse 63 Temp (Src) 97.8 (Oral) Resp 17 Ht 5' 10 (1.78m) Wt 174 lb 9.7 oz (79.2kg) SpO2 97% BMI 25.05 kg/(m2). O2 Therapy: Room Air Gen: More alert, comfortable Head: Normocephalic, atraumatic Skin: No jaundice, rashes or skin lesions, +tattoos Eyes: Sclera anicteric, conjunctiva pink Neck: Supple, no palpable lymphadenopathy or goiter Heart: RRR, no murmurs, rubs or gallops Lungs: CTAB, non-labored breathing Abd: Soft, non-distended, non-tender, bowel sounds present, no palpable masses or organomegaly, no shifting dullness or fluid wave Ext: No lower extremity edema, clubbing or cyanosis. Extremities are warm and well-perfused Neuro: AAOx3, no asterixis, +mild bilateral intention tremor Psych: Congruent mood and affect, appropriate insight and judgement DATA: Diagnostic tests reviewed for today's visit: Most recent labs and imaging results. Component Latest Ref Rng AND Units 03/31/2023 Protein, Total 6.3 - 8.0 g/dL 5.6 (L) Albumin 3.9 - 4.9 g/dL 3.4 (L) Calcium 8.5 - 10.2 mg/dL 7.6 (L) Bilirubin, Total 0.2 - 1.3 mg/dL 1.4 (H) Alkaline Phosphatase 38 - 113 U/L 92 AST 14 - 40 U/L 55 (H) ALT 10 - 54 U/L 28 Glucose 74 - 99 mg/dL 129 (H) BUN 9 - 24 mg/dL 19 Creatinine 0.73 - 1.22 mg/dL 0.98 Sodium 136 - 144 mmol/L 136 Potassium 3.7 - 5.1 mmol/L 3.9 Chloride 97 - 105 mmol/L 105 CO2 22 - 30 mmol/L 23 Anion Gap 9 - 18 mmol/L 8 (L) eGFR >=60 mL/min/1.73mA? 92 Magnesium 1.7 - 2.3 mg/dL 2.3 Phosphorus 2.7 - 4.8 mg/dL 2.2 (L) Component Latest Ref Rng AND Units 01/14/2023 03/30/2023 03/30/2023 03/31/2023 1:00 AM 6:50 AM WBC 3.70 - 11.00 k/uL 2.46 (L) 4.27 2.59 (L) 2.63 (L) RBC 4.20 - 6.00 m/uL 4.80 3.75 (L) 3.38 (L) 3.18 (L) Hemoglobin 13.0 - 17.0 g/dL 15.3 12.2 (L) 10.7 (L) 10.2 (L) Hematocrit 39.0 - 51.0 % 44.2 34.9 (L) 31.4 (L) 30.1 (L) MCV 80.0 - 100.0 fL 92.1 93.1 92.9 94.7 MCH 26.0 - 34.0 pg 31.9 32.5 31.7 32.1 MCHC 30.5 - 36.0 g/dL 34.6 35.0 34.1 33.9 RDW-CV 11.5 - 15.0 % 13.8 13.1 13.0 12.5 Platelet Count 150 - 400 k/uL 64 (L) 43 (L) 30 (L) 37 (L) Impression/Recommendations Galindo Snow is a 52 year old alcoholic cirrhosis, active alcohol abuse, adenomatous colon polyp, GERD and ?PUD who presented to the [place] ER early this morning for abdominal pain, nausea and vomiting. GI was consulted for hematemesis. 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 Unable to remain sober for >1.5 years. Drinking 4-12 beers/day since 08/2022 up until admission Transplant candidate: No, due to active heavy alcohol abuse up until admission 2) Alcohol abuse: POA: Yes 3) Hematemesis: POA: Yes 4) Acute post-hemorrhagic anemia: POA: Yes 5) Severe thrombocytop (more content not included)... Normal [facility] Comprehensive metabolic 2000 panelon 03-31-2023 Albumin [Mass/Vol] 3.4 g/dL Low 3.9-4.9 [facility] Comment on above: Order Comment: Berna champion Type: BLOOD SPECIMENOrdering Facility: [facility] Address: [address] [place] [address] Performed By: #### 2 4323-8, , 2776-08 ####[facility]ITALCLIA [id number] [place] [address] [place] ALP [Catalytic activity/Vol] 92 U/L Normal 38-113 [facility] Comment on above: Order Comment: Berna champion Type: BLOOD SPECIMENOrdering Facility: [facility] Address: [address] [place] [address] Performed By: #### 2 4323-8, , 2776-08 ####[facility] LABORATORYCLIA [id number] [place] [address] [place] ALT [Catalytic activity/Vol] 28 U/L Normal 10-54 [facility] Comment on above: Order Comment: Berna champion Type: BLOOD SPECIMENOrdering Facility: [facility] Address: [address] [place] [address] Performed By: #### 2 4323-8, , 2776-08 ####[facility] LABORATORYCLIA [id number] [place] [address] [place] Anion gap [Moles/Vol] 8 mmol/L Low 9-18 [facility] Comment on above: Order Comment: Speci men Type: BLOOD SPECIMENOrdering Facility: [facility] Address: [address] [place] [address] Performed By: #### 2 4323-8, , 2776-08 ####[facility] [id number] [place] [address] [place] AST [Catalytic activity/Vol] 55 U/L High 14-40 [facility] Comment on above: Order Comment: Speci men Type: BLOOD SPECIMENOrdering Facility: [facility] Address: [address] [place] [address] Performed By: #### 2 4323-8, , 2776-08 ####[facility] [id number] [place] [address] [place] Bilirubin [Mass/Vol] 1.4 mg/dL High 0.2-1.3 [facility] Comment on above: Order Comment: Speci men Type: BLOOD SPECIMENOrdering Facility: [facility] Address: [address] [place] [address] Performed By: #### 2 4323-8, , 2776-08 ####[facility] LABORATORYIA [id number] [facility] [place] [address] [place] Calcium [Mass/Vol] 7.6 mg/dL Low 8.5-10.2 [facility] Comment on above: Order Comment: Speci men Type: BLOOD SPECIMENOrdering Facility: [facility] Address: [address] [place] [address] Performed By: #### 2 4323-8, , 2776-08 ####[facility] LABORATORYIA [id number] [place] [address] [place] Chloride [Moles/Vol] 105 mmol/L Normal 97-105 [facility] Comment on above: Order Comment: Speci men Type: BLOOD SPECIMENOrdering Facility: [facility] Address: [address] Performed By: #### 2 4323-8, , 2776-08 ####[facility] LABORATORYCLIA [id number] [facility] [place] [address] [place] CO2 [Moles/Vol] 23 mmol/L Normal 22-30 [facility] Comment on above: Order Comment: Speci men Type: BLOOD SPECIMENOrdering Facility: [facility] Address: [address] Performed By: #### 2 4323-8, , 2776-08 ####[facility] LABORATORYCLIA [id number] [place], [place] [address] [place] [address] [place] Creatinine [Mass/Vol] 0.98 mg/dL Normal 0.73-1.22 [facility] Comment on above: Order Comment: Speci men Type: BLOOD SPECIMENOrdering Facility: [facility] Address: [address] [address] Performed By: #### 2 4323-8, , 2776-08 ####[facility] LABORATORYCLIA [id number] [place], [place] [address] [place] [address] [facility] Creatinine and Glomerular filtration rate.predicted panel (S/P/Bld) 92 mL/min/1.73m??? Normal >=60 [facility] Comment on above: Order Comment: Speci men Type: BLOOD SPECIMENOrdering Facility: [facility] Address: [address] Result Comment: Puja mated Glomerular Filtration Rate (eGFR) is calculated using the 2020 CKD-EPI creatinine equation. This equation utilizes serum creatinine, sex, and age as parameters. The creatinine assay has traceable calibration to isotope dilution-mass spectrometry. Refer to KDIGO guidelines for clinical interpretation. In patients with unstable renal function, e.g. those with acute kidney injury, the eGFR may not accurately reflect actual GFR. Performed By: #### 2 4323-8, , 2776-08 ####[facility] LABORATORYCLIA [id number] [place] [address] [place] Glucose [Mass/Vol] 129 mg/dL High 74-99 [facility] Comment on above: Order Comment: Speci men Type: BLOOD SPECIMENOrdering Facility: [facility] Address: [address] [place] [address] Result Comment: The [place] [employer] (ADA) provides guidance for cutoff values for fasting glucose and random glucose. The ADA defines fasting as no caloric intake for at least 8 hours. Fasting plasma glucose results between 100 to 125 mg/dL indicate increased risk for diabetes (prediabetes). Fasting plasma glucose results greater than or equal to 126 mg/dL meet the criteria for diagnosis of diabetes. In the absence of unequivocal hyperglycemia, results should be confirmed by repeat testing. In a patient with classic symptoms of hyperglycemia or hyperglycemic crisis, random plasma glucose results greater than or equal to 200 mg/dL meet the criteria for diagnosis of diabetes. Reference: Standards of Medical Care in Diabetes 2016, [place] [employer]. Diabetes Care. 2016.39(Suppl 1). Performed By: #### 2 4323-8, , 2776-08 ####[facility] [id number] [address] [place] [id number] [place] Potassium [Moles/Vol] 3.9 mmol/L Normal 3.7-5.1 [facility] Comment on above: Order Comment: Speci men Type: BLOOD SPECIMENOrdering Facility: [facility] Address: [address] [place], [place] [address] Performed By: #### 2 4323-8, , 2776-08 ####[facility] [id number] [place] [address] [place] Protein [Mass/Vol] 5.6 g/dL Low 6.3-8.0 [facility] Comment on above: Order Comment: Speci men Type: BLOOD SPECIMENOrdering Facility: [facility] Address: [address] [place] [address] Performed By: #### 2 4323-8, 98590-2, 2776-08 ####[facility] LABORATORYCLIA [id number] [facility] [place] [address] [place] Sodium [Moles/Vol] 136 mmol/L Normal 136-144 [facility] Comment on above: Order Comment: Speci men Type: BLOOD SPECIMENOrdering Facility: [facility] Address: [address] Performed By: #### 2 4323-8, , 2776-08 ####[facility] LABORATORYCLIA [id number] [place] [address] [place] Urea nitrogen [Mass/Vol] 19 mg/dL Normal 9-24 [facility] Comment on above: Order Comment: Speci men Type: BLOOD SPECIMENOrdering Facility: [facility] Address: [address] [place] [address] Performed By: #### 2 4323-8, , 2776-08 ####[facility] LABORATORYCLIA [id number] [facility] [place] [address] [facility] [place] [facility] EMERon 03-31-2023 MEDICAL ELAINA HNO ID: [id number] Author: Denis Cohn APRN.[employer] ADMINISTRATOR Service: Critical Care Author Type: Nurse Practitioner Type: Chg in Clinical Condition Filed: 03/31/2023 10:56 PM Note Text: [place] ICU Service Plan Of Care HPI: 62-year-old male with history of alcohol-related cirrhosis, active alcohol use(4-12 drinks/day?), adenomatous colon polyp, GERD and? Peptic ulcer disease who was admitted to the SDU 03/30 for further management of hematemesis. Briefly patient suffered onset of LLQ/suprapubic pain, and vomited noting some contained bright red blood. After event he presented to the [place] ED. He was hemodynamically stable but for mild sinus tachycardia. H/H was stable but reduced from baseline. He was thrombocytopenic with platelets of 43(near baseline) and mild elevation of Liver enzymes. ETOH level 79. Last drink was reported Saturday night. He has baseline liver disease with grade 1 EV. CTAP in ED noted cirrhotic liver morphology with portal hypertension. Patient was given fluids and started on PPI therapy. GI has followed patient in hospital continuing PPI therapy and adding octreotide with history of EV. He was admitted to SDU for monitoring and at this time has not had recurrent hematemesis. GI plan is to keep NPO at midnight and likely perform and upper GI scope tomorrow. During stay patient was placed on CIWA and required intermittent lorazepam dosing. During afternoon and evening of 03/31 patients withdrawal symptoms became worse requiring more frequent lorazepam dosing. He was a code narcisa requiring haldol and a sitter initiated. ICU was asked by nursing to evaluate due to concern for worsening withdrawal. In just hours patients symptoms have worsened. Currently he is not violent or agitated but increasingly confused, impulsive, with notable tremors and very difficult to redirect. Patient will be taken to ICU for phenobarbital taper initiation along with possible precedex infusion for safe control of etoh withdrawal. PHYSICAL EXAM: Appearance: Alert, Mild distress, and Uncooperative Neurologic Evaluation: Alert Confused Is the Level of Consciousness at Baseline: No Airway Patent: Yes Pulmonary Exam: Unable to exam at this time Breathing Adequate: Yes Cardiovascular: Unable to auscultate at present. HR controlled with no ectopy noted. Circulation Adequate: Yes, Blood pressure within normal range Abdomen: not distended Skin: skin color, texture, turgor normal, no rashes or lesions Extremities: no edema DATA: Diagnostic tests reviewed for this evaluation: Most recent labs and imaging results. Most recent EKG BP 164/58 Pulse 71 Temp 36.8 ?C (98.2 ?F) (Oral) Resp 20 Ht 177.8 cm (5' 10 ) Wt 79.2 kg (174 lb 9.7 oz) SpO2 97% BMI 25.05 kg/m? A/P of Major ICU problems: #ETOH Abuse #Acute ETOH Withdrawal #Hematemesis #GIB #Alcoholic Cirrhosis #Thrombocytopenia 52 yo with history of etoh cirrhosis, EV, and heavy etoh abuse presented with one episode of hematemesis and complaints of LLQ pain. GI following with plan for EGD tomorrow. On PPI BID and Octreotide infusion. Patient on CIWA began acutely going through ETOH withdrawal on 03/31 requiring increased lorazepam eventually necessitating ICU transfer for phenobarbital loading/taper and precedex infusion. Patient required hard restraints. Difficult to redirect with tremors, agitation, and confusion. If current interventions unsuccessful patient may require further sedation and intubation for safety and management of withdrawal. Plan: - stop lorazepam - Phenobarbital loading and taper - prn phenobarb - precedex infusion for RASS 0 to -2 - restraints as neccessary - continue IV folic acid, thiamine, MV infusion - maintain NPO - consider intubation if withdrawal symptoms become unsafe - GI following appreciate recs - continue PPI BID - continue Octreotide infusion - continue CFTZ for SBP proph - CBC q12H - maintain TANDS - CMP, Mg, Phos, INR in a.m - replete lytes as needed - bleeding/aspiration precautions - strict I/O, consider kelsey This patient has a high probability of sudden, clinically significant deterioration, which requires the highest level of provider preparedness to intervene urgently. I managed/supervised life or organ supporting interventions that required frequent provider assessment. I devoted my full attention to the direct care of this patient for the amount of time indicated below. Time I spent with family or surrogate(s) is included only if the patient was incapable of providing the necessary information or participating in medical decision making. Time devoted to teaching and to any procedures I billed separately is not included. Time also spent in coordination of care with other treating providers. Critical Care Documentation: The patient has the following organ/system impairment(s): ETOH withdrawal, Cirrhosis, GIB (more content not included)... Normal [facility] Magnesium SerPl-mCncon 03-31 Magnesium [Mass/Vol] 2.3 mg/dL Normal 1.7-2.3 [facility] Comment on above: Order Comment: Speci men Type: BLOOD SPECIMENOrdering Facility: [facility] Address: [address] [place] [address] Performed By: #### 2 4323-8, 57059-2, 2777-1 ####[facility] LABORATORYCLIA [id number] [facility] [place] [address] [place] NURSING PROGon 03-31-2023 NURSING PROG HNO ID: [id number] Author: Janee Young RN Service: ? Author Type: Registered Nurse Type: Nursing Progress Note Filed: 04/01/2023 1:49 AM Note Text: 1951 Bed alarm triggered. Sitter at bedside called RN due to increase confusion , impulsiveness, restlessness, and attempting to ambulate with an unsteady gait. Sitter unable to redirect patient. Assisted patient to bed and laying in a safe position. 2014 Bed alarm triggered. Sitter at bedside called RN due to increase confusion, impulsive, restless, and attempting to ambulate with an unsteady gait. Very difficult to redirect patient. Patient noted to be experiencing tremors, slurred speech, difficulty answering question, and having hallucinations. Denis Cohn POTATO SEED CUTTER came to bedside to re-evaluate patients need for ICU transfer. [facility] NURSING PROG HNO ID: [id number] Author: Kelly Walker RN Service: Nursing Author Type: Registered Nurse Type: Nursing Progress Note Filed: 04/01/2023 2:42 AM Note Text: Nursing Progress: Topic: RESTRAINT VIOLENT PATIENT NAME: Galindo Snow Patient Location: [place] [address] Room: [place] [address] The patient demonstrates Combative Behavior, Risk of Harm to Others and requires police/ security Hands on Escort as evidenced by the following behaviors attempting to strike nurse and staff with closed fist, attempting to spit on staff, attempting to remove all vital monitoring equipment, attempting to remove necessary lines, inability to reason, inability to follow instruction which pose an imminent danger to self or others. The following interventions were attempted but were not effective in protecting the patient's safety: Verbal De-escalation (patient cognitively intact), Verbal Redirection (patient cognitively impaired), Bed in Low/Locked Position, Call Light Within Reach, Lacrosse Player/Sitter, Decreased Stimulation, Frequent Observation, Medication PRN, Medications Reviewed, Modify Environment, Modify Equipment, Pain/Discomfort Relief Next, a comprehensive assessment was performed and warranted placing the patient in Hard Left Ankle, Hard Left Wrist, Hard Right Ankle, Hard Right Wrist, the least restrictive restraint needed to protect the patient's safety. Ongoing safety assessments and evaluation for earliest removal of restraints will be performed. DATE: April 01, 2023 TIME: 2:40 AM Kelly Walker RN [facility] NURSING PROG HNO ID: [id number] Author: Kelly Walker RN Service: Nursing Author Type: Registered Nurse Type: Nursing Progress Note Filed: 04/01/2023 8:01 AM Note Text: Nursing Progress: Topic: RESTRAINT NON-VIOLENT PATIENT NAME: Galindo Snow Patient Location: / Room: [place] [address] The patient demonstrates Inability to Retain Information Regarding Safety Directions, Impulsive Behavior, Inability to be Redirected, Lack of Understanding/Ability to Comply with Safety Directions, Confusion as evidenced by the following behaviors attempting to remove medical devices, attempting to climb out of bed, inability to retain safety information, attempting to strike staff with fists which pose an imminent danger to self or others. The following interventions were attempted but were not effective in protecting the patient's safety: Contraindicated - Imminent Safety Risk Next, a comprehensive assessment was performed and warranted placing the patient in Hard Bilateral Ankles, Hard Bilateral Wrists, the least restrictive restraint needed to protect the patient's safety. Ongoing safety assessments and evaluation for earliest removal of restraints will be performed. DATE: April 01, 2023 TIME: 8:00 AM Kelly Walker RN [facility] NURSING PROG HNO ID: [id number] Author: Katherine Richardson RN Service: Nursing Author Type: Registered Nurse Type: Nursing Progress Note Filed: 03/31/2023 8:05 PM Note Text: Nursing Progress Note Patient Name: Galindo Snow Patient Location: 1910 RN at bedside to give PRN ativan for CIWA score 20 . At bedside pt observed to be standing out of bed , bed alarm alarming, and pt yelling at staff and attempting to walk out of room. Pt not redirectable verbally. Pt attempted to swing at nursing staff. Kvng brewster called. During code narcisa- pt seated at edge of bed. Security at bedside. Pt assisted to laying in safe position in bed. See EMAR for haldol and ativan given. Mark Chen CNP and Dr. Foster at bedside. Instructed to contact ICU for further assistance with medication management if pt does not improve with agitation. Sitter initiated at bedside and NOM contacted regarding change in pt needs. This note was completed by: Katherine Richardson 1941 Bed alarm alarmed. Sitter at bedside called RN regarding increased agitation and pt attempting to walk around room on unsteady feet. Pt yelling at staff. Pt redirected verbally. Pt assisted to sit in bed and in safe position laying in bed. Denis Cohn CCNP at bedside to assess pt. See orders received. Janee BEASLEY assuming care of pt at this time at bedside and aware of changes in POC. Sitter remains at bedside . Normal [facility] Phosphate SerPl-mCncon 03-31 Phosphate [Mass/Vol] 2.2 mg/dL Low 2.7-4.8 [facility] Comment on above: Order Comment: Speci men Type: BLOOD SPECIMENOrdering Facility: [facility] Address: [address] [place] [address] Performed By: #### 2 4323-8, 73826-1, 2777-1 ####[facility] LABORATORYCLIA [id number] [facility] [place] [address] [facility] HEALTHon 03-30-2023 ALLIED HEALTH HNO ID: [id number] Author: Geogrette Cullen RT(Soila) Service: Radiology Author Type: Floral Artist Type: Allied Health Filed: 03/30/2023 1:42 AM Note Text: Radiology Service Progress Note DATE OF SERVICE: March 30, 2023 TIME: 1:41 AM PATIENT IDENTITY VERIFICATION COMPLETED USING TWO (2) STANDARD IDENTIFIERS: Name and Date of confirmed by patient verbally and Name and Date of confirmed by identification band. FALL SCREENING: Has the patient had 2 falls in the last year or 1 fall with injury or currently using an Ambulatory Assistive Device (Walker, Cane, Wheelchair, Crutches, etc.)? No PATIENT GENDER DATA: Male PATIENT RELEVANT IMPLANT DATA REVIEWED: Yes ALLERGIES: Reviewed and unchanged CONTRAST ALLERGY: NO EXAM: CT -CONTRAST INDUCED NEPHROPATHY RISK FACTORS: Patient age > 60 years CREATININE: Creatinine Date Value Ref Range Status 03/30/2023 0.82 0.73 - 1.22 mg/dL Final 01/14/2023 0.98 0.73 - 1.22 mg/dL Final 11/13/2022 1.01 0.73 - 1.22 mg/dL Final Estimated Glomerular Filtration Rate Date Value Ref Range Status 03/30/2023 104 >=60 mL/min/1.73m? Final Comment: Estimated Glomerular Filtration Rate (eGFR) is calculated using the 2020 CKD-EPI creatinine equation. This equation utilizes serum creatinine, sex, and age as parameters. The creatinine assay has traceable calibration to isotope dilution-mass spectrometry. Refer to KDIGO guidelines for clinical interpretation. In patients with unstable renal function, e.g. those with acute kidney injury, the eGFR may not accurately reflect actual GFR. eGFR- Date Value Ref Range Status 02/09/2021 >60 >60 Final P.O.C.T. RESULTS: POC done: Yes, See Lab Tab March 30, 2023 TREATMENT: N/A PERIPHERAL IV DATA: Inpatient - refer to [facility] documentation RADIOLOGY DEPARTMENT: CT; Exam(s) Completed: Abdomen/Pelvis SIGNATURE: RT Allan(R) PATIENT NAME: Galindo Snow DATE: March 30, 2023 TIME: 1:41 AM Normal [facility] CBC W Auto Differential pane l (Bld)on 03-30-2023 Basophils (Bld) [#/Vol] 10*3/uL Normal <0.11 [facility] Comment on above: Order Comment: Speci men Type: BLOOD SPECIMENOrdering Facility: [facility] Address: [address] [place] [address] Performed By: #### 5 7021-8 ####[facility] LWCLIA [id number] [place] [address] [place] [facility] Basophils/100 WBC (Bld) 0.5 % Normal [facility] Comment on above: Order Comment: Speci men Type: BLOOD SPECIMENOrdering Facility: [facility] Address: [address] [place] [address] Performed By: #### 5 7021-8 ####[facility] LWCLIA [id number] [place] [address] [place] Differential cell count method Nom (Bld) Auto Normal [facility] Comment on above: Order Comment: Speci men Type: BLOOD SPECIMENOrdering Facility: [facility] Address: [address] [place] [address] Performed By: #### 5 7021-8 ####[facility] LWCLIA [id number] [place] [address] [place] Eosinophils (Bld) [#/Vol] 0.11 10*3/uL Normal <0.46 [facility] Comment on above: Order Comment: Speci men Type: BLOOD SPECIMENOrdering Facility: [facility] Address: [address] [place] [address] Performed By: #### 5 7021-8 ####[facility] LWCLIA [id number] [address] [place] Eosinophils/100 WBC (Bld) 2.6 % Normal [facility] Comment on above: Order Comment: Speci men Type: BLOOD SPECIMENOrdering Facility: [facility] Address: [address] [place] [address] Performed By: #### 5 7021-8 ####[facility] LWCLIA [id number] [address] [place] Erythrocyte distribution width (RBC) [Ratio] 13.1 % Normal 11.5-15.0 [facility] Comment on above: Order Comment: Speci men Type: BLOOD SPECIMENOrdering Facility: [facility] Address: [address] [place] [address] Performed By: #### 5 7021-8 ####[facility] LWCLIA [id number] [address] [place] Hematocrit (Bld) [Volume fraction] 34.9 % Low 39.0-51.0 [facility] Comment on above: Order Comment: Speci men Type: BLOOD SPECIMENOrdering Facility: [facility] Address: [address] [place] [address] Performed By: #### 5 7021-8 ####[facility] LWCLIA [id number] [place] [id number] [place] Hemoglobin (Bld) [Mass/Vol] 12.2 g/dL Low 13.0-17.0 [facility] Comment on above: Order Comment: Speci men Type: BLOOD SPECIMENOrdering Facility: [facility] Address: [address] [place] [address] Performed By: #### 5 7021-8 ####[facility] LWCLIA [id number] [place] [address] [place] Immature granulocytes (Bld) [#/Vol] 10*3/uL Normal <0.10 [facility] Comment on above: Order Comment: Speci men Type: BLOOD SPECIMENOrdering Facility: [facility] Address: [address] [place] [address] Performed By: #### 5 7021-8 ####[facility] LWCLIA [id number] [place] [address] [place] Immature granulocytes/100 WBC (Bld) 0.5 % Normal [facility] Comment on above: Order Comment: Speci men Type: BLOOD SPECIMENOrdering Facility: [facility] Address: [address] [place] [address] Performed By: #### 5 7021-8 ####[facility] LWCLIA [id number] [place] [address] [place] Lymphocytes (Bld) [#/Vol] 1.07 10*3/uL Normal 1.00-4.00 [facility] Comment on above: Order Comment: Speci men Type: BLOOD SPECIMENOrdering Facility: [facility] Address: [address] [place] [address] Performed By: #### 5 7021-8 ####[facility] LWCLIA [id number] [place] [id number] [place] Lymphocytes/100 WBC (Bld) 25.1 % Normal [facility] Comment on above: Order Comment: Speci men Type: BLOOD SPECIMENOrdering Facility: [facility] Address: [address] [place] [address] Performed By: #### 5 7021-8 ####[facility] LWCLIA [id number] [address] MCH (RBC) [Entitic mass] 32.5 pg Normal 26.0-34.0 [facility] Comment on above: Order Comment: Speci men Type: BLOOD SPECIMENOrdering Facility: [facility] Address: [address] [place] [address] Performed By: #### 5 7021-8 ####[facility] LWIA [id number] [address] MCHC (RBC) [Mass/Vol] 35.0 g/dL Normal 30.5-36.0 [facility] Comment on above: Order Comment: Speci men Type: BLOOD SPECIMENOrdering Facility: [facility] Address: [address] [place] [address] Performed By: #### 5 7021-8 ####[facility] LWIA [id number] [address] MCV (RBC) [Entitic vol] 93.1 fL Normal 80.0-100.0 [facility] Comment on above: Order Comment: Speci men Type: BLOOD SPECIMENOrdering Facility: [facility] Address: [address] [place] [address] Performed By: #### 5 7021-8 ####[facility] LWIA [id number] [address] Monocytes (Bld) [#/Vol] 0.47 10*3/uL Normal <0.87 [facility] Comment on above: Order Comment: Speci men Type: BLOOD SPECIMENOrdering Facility: [facility] Address: [address] [place] [address] Performed By: #### 5 7021-8 ####[facility] LWCLIA [id number] [place] [address] [place] Monocytes/100 WBC (Bld) 11.0 % Normal [facility] Comment on above: Order Comment: Speci men Type: BLOOD SPECIMENOrdering Facility: [facility] Address: [address] [place] [address] Performed By: #### 5 7021-8 ####[facility] LWCLIA [id number] [place] [address] [place] Neutrophils (Bld) [#/Vol] 2.58 10*3/uL Normal 1.45-7.50 [facility] Comment on above: Order Comment: Speci men Type: BLOOD SPECIMENOrdering Facility: [facility] Address: [address] [place] [address] Performed By: #### 5 7021-8 ####[facility] LWCLIA [id number] [place] [address] [place] Neutrophils/100 WBC (Bld) 60.3 % Normal [facility] Comment on above: Order Comment: Speci men Type: BLOOD SPECIMENOrdering Facility: [facility] Address: [address] [place] [address] Performed By: #### 5 7021-8 ####[facility] LWCLIA [id number] [place] [address] [place] Nucleated RBC (Bld) [#/Vol] 10*3/uL Normal <0.01 [facility] Comment on above: Order Comment: Speci men Type: BLOOD SPECIMENOrdering Facility: [facility] Address: [address] [place] [address] Performed By: #### 5 7021-8 ####[facility] LWCLIA [id number] [place] [id number] [place] Nucleated RBC/100 WBC (Bld) [Ratio] 0.0 /100 WBC Normal [facility] Comment on above: Order Comment: Speci men Type: BLOOD SPECIMENOrdering Facility: [facility] Address: [address] [place] [address] Performed By: #### 5 7021-8 ####[facility] LWCLIA [id number] [address] OF [facility] Platelet mean volume (Bld) [Entitic vol] 9.4 fL Normal 9.0-12.7 [facility] Comment on above: Order Comment: Speci men Type: BLOOD SPECIMENOrdering Facility: [facility] Address: [address] [place] [address] Performed By: #### 5 7021-8 ####[facility] LWCLIA [id number] [address] Platelets (Bld) [#/Vol] 43 10*3/uL Low 150-400 [facility] Comment on above: Order Comment: Speci men Type: BLOOD SPECIMENOrdering Facility: [facility] Address: [address] [place] [address] Result Comment: No c lot detected.Reviewed. Performed By: #### 5 7021-8 ####[facility] LWCLIA [id number] [address] [place] RBC (Bld) [#/Vol] 3.75 10*6/uL Low 4.20-6.00 [facility] Comment on above: Order Comment: Speci men Type: BLOOD SPECIMENOrdering Facility: [facility] Address: [address] [place] [address] Performed By: #### 5 7021-8 ####[facility] LWCLIA [id number] [place] [id number] [facility] [place] WBC (Bld) [#/Vol] 4.27 10*3/uL Normal 3.70-11.00 [facility] Comment on above: Order Comment: Speci men Type: BLOOD SPECIMENOrdering Facility: [facility] Address: [address] [place] [address] Performed By: #### 5 7021-8 ####[facility] [id number] [place] [address] [place] CBC panel Auto (Bld)on 03-30 Erythrocyte distribution width (RBC) [Ratio] 13.0 % Normal 11.5-15.0 [facility] Comment on above: Order Comment: Speci men Type: BLOOD SPECIMENOrdering Facility: [facility] Address: [address] [place] [address] Performed By: #### 5 8410-2 ####[facility] LABORATORYIA [id number] [address] [place] Hematocrit (Bld) [Volume fraction] 31.4 % Low 39.0-51.0 [facility] Comment on above: Order Comment: Speci men Type: BLOOD SPECIMENOrdering Facility: [facility] Address: [address] [place] [address] Performed By: #### 5 8410-2 ####[facility] [id number] [address] [place] Hemoglobin (Bld) [Mass/Vol] 10.7 g/dL Low 13.0-17.0 [facility] Comment on above: Order Comment: Speci men Type: BLOOD SPECIMENOrdering Facility: [facility] Address: [address] [place] [address] Performed By: #### 5 8410-2 ####[facility] LABORATORYIA [id number] [address] [place] MCH (RBC) [Entitic mass] 31.7 pg Normal 26.0-34.0 [facility] Comment on above: Order Comment: Speci men Type: BLOOD SPECIMENOrdering Facility: [facility] Address: [address] [place] [address] Performed By: #### 5 8410-2 ####[facility] LABORATORYIA [id number] [place] [id number] [place] MCHC (RBC) [Mass/Vol] 34.1 g/dL Normal 30.5-36.0 [facility] Comment on above: Order Comment: Speci men Type: BLOOD SPECIMENOrdering Facility: [facility] Address: [address] [place] [address] Performed By: #### 5 8410-2 ####[facility] LABORATORYCLIA [id number] [address] [place] MCV (RBC) [Entitic vol] 92.9 fL Normal 80.0-100.0 [facility] Comment on above: Order Comment: Speci men Type: BLOOD SPECIMENOrdering Facility: [facility] Address: [address] [place] [address] Performed By: #### 5 8410-2 ####[facility] [id number] [address] [place] Nucleated RBC (Bld) [#/Vol] 10*3/uL Normal <0.01 [facility] Comment on above: Order Comment: Speci men Type: BLOOD SPECIMENOrdering Facility: [facility] Address: [address] [place] [address] Performed By: #### 5 8410-2 ####[facility] [id number] [place] [address] [place] Platelet mean volume (Bld) [Entitic vol] 9.2 fL Normal 9.0-12.7 [facility] Comment on above: Order Comment: Speci men Type: BLOOD SPECIMENOrdering Facility: [facility] Address: [address] Performed By: #### 5 8410-2 ####[facility] LABORATORYIA [id number] [place] [address] [place] Platelets (Bld) [#/Vol] 30 10*3/uL Low 150-400 [facility] Comment on above: Order Comment: Speci men Type: BLOOD SPECIMENOrdering Facility: [facility] Address: [address] Result Comment: scfc No clot detected. Performed By: #### 5 8410-2 ####[facility] LABORATORYCLIA [id number] [facility] [place] [address] [facility] RBC (Bld) [#/Vol] 3.38 10*6/uL Low 4.20-6.00 [facility] Comment on above: Order Comment: Speci men Type: BLOOD SPECIMENOrdering Facility: [facility] Address: [address] Performed By: #### 5 8410-2 ####[facility] LABORATORYCLIA [id number] [place] [id number] [facility] WBC (Bld) [#/Vol] 2.59 10*3/uL Low 3.70-11.00 [facility] Comment on above: Order Comment: Speci men Type: BLOOD SPECIMENOrdering Facility: [facility] Address: [address] [place] [address] Performed By: #### 5 8410-2 ####[facility] LABORATORYCLIA [id number] [facility].[place] [id number] [facility] CONSULTon 03-30-2023 CONSULT HNO ID: [id number] Author: Jewel Browning MD Service: Gastroenterology Author Type: Physician Type: Consults Filed: 03/30/2023 10:05 AM Note Text: Gastroenterology Consult Service Patient: Galindo Snow Medical Record: [id number] Date of Service: March 30, 2023 Reason for Consult: Hematemesis Requesting Provider: Dr. Chris Koch History of Present Illness: Galindo Snow is a 52 year old alcoholic cirrhosis, active alcohol abuse, adenomatous colon polyp, GERD and ?PUD who presented to the [place] ER early this morning for abdominal pain, nausea and vomiting. GI was consulted for hematemesis. He started feeling unwell last night around midnight with the onset of moderately severe LLQ and suprapubic pain. He doesn't remember much about what happened after this, but he vomited. Emesis was dark brown but contained a tablespoon-sized amount of bright red blood. He had another episode in the ER, with <1 cupful of BRB. He denies hematochezia or melena. He has not had any more episodes since. He endorses a remote history of non-variceal GI bleeding. He drinks 4-12 beers/day. He experiences withdrawal symptoms if he doesn't drink regularly. BAL on admission was 79. He follows up with Leonel Lizarraga PA-C in the liver clinic for alcoholic cirrhosis. His liver disease has been complicated by esophageal varices (grade I) and severe thrombocytopenia (Plt 40-50s). Chronic liver disease workup was unremarkable. He maintained sobriety for 1.5 years, which is the longest period of time he has been sober, but relapsed in 08/2022. Started drinking due to life stressors. He has been to rehab and left on his own. Tried AA but didn't like it. He endorses intermittent acid reflux. GI ROS negative for dysphagia, early satiety, changes in appetite, change in bowel habits or unintentional weight loss. His mother was diagnosed with cirrhosis. No other known FHx of GI tract malignancy or disease. No prior abdominopelvic surgeries. Prior GI Workup: CT liver w/wo IV contrast: 03/25/23: Liver: Hepatic morphology and masses: Cirrhotic liver morphology. Lesion(s): None Hepatic vasculature and collaterals: Portal venous system (splenic vein, main portal vein, left and right anterior and right posterior portal vein branches): Patent. Portal vein diameter: 1.5 cm. Celiac trunk and SMA: Patent. No stenosis. Hepatic artery: Patent. Conventional anatomy. Hepatic veins: Patent. Collaterals: Spontaneous splenorenal shunt: Large Recanalized paraumbilical vein: Present Esophageal varices: Small Mesenteric portosystemic collaterals: Present Related extrahepatic findings: Spleen: 15 cm (craniocaudally), enlarged. No mass. Mesentery/Peritoneum: No ascites. No mass. Other findings: Biliary: No bile duct dilation. Cholelithiasis. Pancreas: No mass or duct dilation. Adrenals: No mass. Kidneys: No mass, calculus or hydronephrosis. GI tract: No dilation or wall thickening. Lymph nodes: No abdominal lymphadenopathy. IMPRESSION: 1. Cirrhosis of the liver and portal hypertension. No liver mass. 2. Cholelithiasis EGD: 05/08/22: Dr. 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 Path: Stomach, biopsy: - Oxyntic mucosa with no significant diagnostic alterations. - No morphologic evidence of Helicobacter pylori organisms. EGD: 10/11/20: Dr. Dunlap: for variceal screening - Grade I esophageal varices. - Otherwise normal. Colon: 06/12/19: Dr. Smith: for abnormal video capsule Normal TI and colon Colon: 08/10/13: Dr. Ha: for melena: - One 2 mm polyp in the sigmoid colon. Resected and retrieved. - Otherwise normal Path: Sigmoid colon, polypectomy Fragments of tubular adenoma. PAST MEDICAL HISTORY Diagnosis Date Alcoholism (HCC) Gallstones Gastropathy PUD (peptic ulcer disease) Thrombocytopenia (HCC) PAST SURGICAL HISTORY Procedure Laterality Date COLONOSCOPY 2013 polyp EGD 2012 EGD 01/20/2018 DONE ORTHOPEDICS SURGERY HX teen R knee arthroscopy FAMILY HISTORY Problem Relation Age of Onset Diabetes Mother other (Cirrhosis) Mother other (Esophageal Varicies) Mother other (Lung Cancer) Father Social History Tobacco Use Smoking status: Former Years: 12 Types: Cigarettes Start date: 08/06/2000 Smokeless tobacco: Current Types: Chew Vaping Use Vaping Use: Never used Substance Use Topics Alcohol use: Not Currently Comment: alcoholic Drug use: No ALLERGIES Allergen Reactions Dilaudid [Hydromorp* Mental Status Change, Itching Medications Prior to Admission: testosterone cypionate (DEPO-TESTOSTERONE) 200 mg/mL injectionInject 1 mL intramuscularly every 3 weeks for 90 days.Disp: 2 mLRfl: 1 sildenafil (VIAGRA) 100 mg tab (more content not included)... Normal [facility] CT ABD/PEL W IVCONon 023 CT ABD/PEL W IVCON * * *Final Report* * * DATE OF EXAM: Mar 30 2023 1:39AM [facility] 0530 - CT ABD/PEL W IVCON / PROCEDURE REASON: LLQ abdominal pain * * * * Physician Interpretation * * * * EXAMINATION: CT ABDOMEN AND PELVIS WITH IV CONTRAST CLINICAL HISTORY: Left lower quadrant abdominal pain TECHNIQUE: CT of the abdomen and pelvis was performed using standard technique, scanning from just above the dome of the diaphragm to the symphysis pubis. Contrast: IV: 100 ml of Omnipaque 350 CT Radiation dose: Integrated Dose-length product (DLP) for this visit = 370 mGy*cm. CT Dose Reduction Employed: Automated exposure control(AEC) and iterative recon COMPARISON: CT abdomen pelvis 03/25/2023. RESULT: Liver: Cirrhotic liver morphology with nodular surface contour. Diffuse low-attenuation. Biliary: Cholelithiasis. No adjacent inflammatory changes. Spleen: Splenomegaly. The spleen measures up to 16 cm craniocaudal. Pancreas: No mass or duct dilation. Adrenals: No mass. Kidneys: No mass, calculus or hydronephrosis. GI tract: No dilation or wall thickening. The appendix appears normal. Lymph nodes: No abdominal or pelvic lymphadenopathy. Mesentery/Peritoneum: No ascites or mass. Vasculature: Splenorenal shunting in the left upper quadrant. There multiple small gastric varices. There are atherosclerotic calcifications without aneurysmal dilation of the abdominal aorta. Pelvis: No mass, ascites or fluid collection. The urinary bladder is unremarkable. Bones/Soft Tissues: The bones contain no worrisome lytic or sclerotic lesions. Lower thorax: The lung bases are clear. IMPRESSION: 1. Cirrhotic liver with evidence of portal hypertension including splenomegaly, splenorenal shunting and small gastric varices near the GE junction. 2. Cholelithiasis. No inflammatory changes. Sock Lining Examiner: REHAN Transcribe Date/Time: Mar 30 2023 2:11A Dictated by : TANISHA SUBRAMANIAN MD This examination was interpreted and the report reviewed and electronically signed by: TANISHA SUBRAMANIAN MD on Mar 30 2023 2:23AM EST [id number] Normal [facility] Comprehensive metabolic 2000 panelon 03-30-2023 Albumin [Mass/Vol] 3.7 g/dL Low 3.9-4.9 [facility] Comment on above: Order Comment: Speci men Type: BLOOD SPECIMENOrdering Facility: [facility] Address: [address] [place] [phone] Performed By: #### 2 4323-8, 00692-3, 3040-3 ####[facility] LWCLIA [id number] [place] [address] [place] ALP [Catalytic activity/Vol] 114 U/L High 38-113 [facility] Comment on above: Order Comment: Speci men Type: BLOOD SPECIMENOrdering Facility: [facility] Address: [address] [address] Performed By: #### 2 4323-8, , 3 ####[facility] LWCLIA [id number] [place] [id number] [place] ALT [Catalytic activity/Vol] 36 U/L Normal 10-54 [facility] Comment on above: Order Comment: Speci men Type: BLOOD SPECIMENOrdering Facility: [facility] Address: [address] [place] [address] Performed By: #### 2 432-8, , 3039-10 ####[place] [facility] LWCLIA [id number] [place] [address] [place] Anion gap [Moles/Vol] 13 mmol/L Normal 9-18 [facility] Comment on above: Order Comment: Speci men Type: BLOOD SPECIMENOrdering Facility: [facility] Address: [address] [place] [address] Performed By: #### 2 4323-8, , 3 ####[facility] LWCLIA [id number] [place] [address] [place] [facility] AST [Catalytic activity/Vol] 77 U/L High 14-40 [facility] Comment on above: Order Comment: Speci men Type: BLOOD SPECIMENOrdering Facility: [facility] Address: [address] [place], [place] [id number] Performed By: #### 2 4323-8, , 3 ####[place] [facility] LWCLIA [id number] [place] [id number] [place] Bilirubin [Mass/Vol] 1.3 mg/dL Normal 0.2-1.3 [facility] Comment on above: Order Comment: Speci men Type: BLOOD SPECIMENOrdering Facility: [facility] Address: [address] Performed By: #### 2 4323-8, , 3 ####[place] [facility] LWCLIA [id number] [place] [id number] [place] Calcium [Mass/Vol] 8.3 mg/dL Low 8.5-10.2 [facility] Comment on above: Order Comment: Speci men Type: BLOOD SPECIMENOrdering Facility: [facility] Address: [address] [address] Performed By: #### 2 4323-8, , 3 ####[facility] LWCLIA [id number] [place] [address] [place] Chloride [Moles/Vol] 102 mmol/L Normal 97-105 [facility] Comment on above: Order Comment: Speci men Type: BLOOD SPECIMENOrdering Facility: [facility] Address: [address] Performed By: #### 2 4323-8, , 3 ####[facility] LWCLIA [id number] [place] [id number] [place] CO2 [Moles/Vol] 24 mmol/L Normal 22-30 [facility] Comment on above: Order Comment: Speci men Type: BLOOD SPECIMENOrdering Facility: [facility] Address: [address] Performed By: #### 2 4323-8, , 3 ####[facility] LWCLIA [id number] [place] [id number] [place] Creatinine [Mass/Vol] 0.82 mg/dL Normal 0.73-1.22 [facility] Comment on above: Order Comment: Speci men Type: BLOOD SPECIMENOrdering Facility: [facility] Address: [address] Performed By: #### 2 432-8, 20351-9, 0-3 ####[facility] LWCLIA [id number] [place] [id number] [facility] Creatinine and Glomerular filtration rate.predicted panel (S/P/Bld) 104 mL/min/1.73m??? Normal >=60 [facility] Comment on above: Order Comment: Berna champion Type: BLOOD SPECIMENOrdering Facility: [facility] Address: [address] [place] [address] Result Comment: Puja mated Glomerular Filtration Rate (eGFR) is calculated using the 2020 CKD-EPI creatinine equation. This equation utilizes serum creatinine, sex, and age as parameters. The creatinine assay has traceable calibration to isotope dilution-mass spectrometry. Refer to KDIGO guidelines for clinical interpretation. In patients with unstable renal function, e.g. those with acute kidney injury, the eGFR may not accurately reflect actual GFR. Performed By: #### 2 4323-8, , 3 ####[facility] LWCLIA [id number] [place] [id number] [place] Glucose [Mass/Vol] 124 mg/dL High 74-99 [facility] Comment on above: Order Comment: Berna champion Type: BLOOD SPECIMENOrdering Facility: [facility] Address: [address] [place] [address] Result Comment: The [place] Diabetes Association (ADA) provides guidance for cutoff values for fasting glucose and random glucose. The ADA defines fasting as no caloric intake for at least 8 hours. Fasting plasma glucose results between 100 to 125 mg/dL indicate increased risk for diabetes (prediabetes). Fasting plasma glucose results greater than or equal to 126 mg/dL meet the criteria for diagnosis of diabetes. In the absence of unequivocal hyperglycemia, results should be confirmed by repeat testing. In a patient with classic symptoms of hyperglycemia or hyperglycemic crisis, random plasma glucose results greater than or equal to 200 mg/dL meet the criteria for diagnosis of diabetes. Reference: Standards of Medical Care in Diabetes 2016, [place] [employer] Association. Diabetes Care. 2016.39(Suppl 1). Performed By: #### 2 4323-8, , 3 ####[facility] LWCLIA [id number] [place] [address] [place] Potassium [Moles/Vol] 4.1 mmol/L Normal 3.7-5.1 [facility] Comment on above: Order Comment: Speci men Type: BLOOD SPECIMENOrdering Facility: [facility] Address: [address] [address] Performed By: #### 2 4323-8, , 3 ####[facility] LWCLIA [id number] [place] [id number] [place] Protein [Mass/Vol] 6.3 g/dL Normal 6.3-8.0 [facility] Comment on above: Order Comment: Speci men Type: BLOOD SPECIMENOrdering Facility: [facility] Address: [address] [address] Performed By: #### 2 4328, , 3 ####[facility] LWCLIA [id number] [place] [id number] [place] Sodium [Moles/Vol] 139 mmol/L Normal 136-144 [facility] Comment on above: Order Comment: Speci men Type: BLOOD SPECIMENOrdering Facility: [facility] Address: [address] [place] [address] Performed By: #### 2 4323-8, , 3 ####[facility] LWCLIA [id number] [place] [id number] [place] Urea nitrogen [Mass/Vol] 16 mg/dL Normal 9-24 [facility] Comment on above: Order Comment: Speci men Type: BLOOD SPECIMENOrdering Facility: [facility] Address: [address] Performed By: #### 2 4323-8, , 3039-3 ####[facility] LWCLIA [id number] [place] [id number] [facility] ECG COMPLETEon 03-30-2023 ECG COMPLETE Ventricular Rate : 8 5 BPM Atrial Rate : 85 BPM P-R Interval : 144 ms QRS Duration : 93 ms Q-T Interval : 411 ms QTC Calculation(Bazett) : 489 ms Calculated P [place] : 36 degrees Calculated R [place] : 22 degrees Calculated T [place] : 54 degrees Sinus rhythm Borderline prolonged QT interval Borderline ECG Confirmed by NATALIA HAND M.D. ([id number]) on 04/01/2023 10:23:40 AM NAME : GALINDO SNOW PID : [id number] : 1970 Gender : Male Race : ORD : [id number] Procedure Date : Mar 30 2023 10:11:13 Edit Date : Apr 01 2023 10:23:41 Diagnosis: Sinus rhythm Borderline prolonged QT interval Borderline ECG Confirmed by NATALIA HAND M.D. ([id number]) on 04/01/2023 10:23:40 AM Test Reason : Assess QTc Location : 300 : EKG 430 Overread By : NATALIA HAND M.D. Edited By : NATALIA HAND M.D. Referred By : LAVELLE ELIZABETH Acquired by : Mahsa Bailey [facility] ED NOTEon 03-30-2023 ED NOTE HNO ID: [id number] Author: Wanda Cesar RN Service: Nursing Author Type: Registered Nurse Type: ED Notes Filed: 03/30/2023 6:02 AM Note Text: Pt transported in stable condition by [facility]t to [facility] down. [facility] ED NOTE HNO ID: [id number] Author: Wanda Cesar RN Service: Nursing Author Type: Registered Nurse Type: ED Notes Filed: 03/30/2023 5:07 AM Note Text: Pt resting comfortably, at bed side. [facility] ED NOTE HNO ID: [id number] Author: Wanda Cesar RN Service: Nursing Author Type: Registered Nurse Type: ED Notes Filed: 03/30/2023 3:46 AM Note Text: Report called to [address] Spoke with gale lewis. Eta for transport 0545. [facility] ED NOTE HNO ID: [id number] Author: Wanda Cesar, GALE Service: Nursing Author Type: Registered Nurse Type: ED Notes Filed: 03/30/2023 2:28 AM Note Text: Pt vomiting large amount of dark brown material. Dr elizabeth in to assess patient. Gastric occult positive. Pt is axox3. Vss. Conversant. Normal [facility] ED NOTE HNO ID: [id number] Author: Wanda Cesar, GALE Service: Nursing Author Type: Registered Nurse Type: ED Notes Filed: 03/30/2023 1:38 AM Note Text: Patient states he drinks etoh regularly all day. Last drink was around 2300 this evening. Pt states he has never has a seizure from withdrawal. Denies hallucinations or active withdrawal at this time. Normal [facility] ED NOTE HNO ID: [id number] Author: Mcihael Velasquez RN Service: Nursing Author Type: Registered Nurse Type: ED Notes Filed: 03/30/2023 12:39 AM Note Text: Pt presents to ED due to vomiting and LLQ abdominal pain that started this evening. Plan of care -Monitor Patient's Vital Signs for changes in condition -Monitor patient for changes in pain -Maintain patient safety and privacy -Provide comfort measures -Call light in place Siderails up, bed in locked and low position Normal [facility] ED PROV NOTEon 03-30-2023 ED PROV NOTE HNO ID: [id number] Author: Lavelle Elizabeth MD Service: Emergency Medicine Author Type: Physician Type: ED Provider Notes Filed: 03/30/2023 2:59 AM Note Text: ED Provider Note Patient Name: Galindo Snow : 1970 SERVICE DATE: 03/30/23 History Patient presents with: Abdominal Pain Vomiting This is a 52-year-old male with a history of cirrhosis, alcohol abuse, gallstones and peptic ulcer disease with prior GI bleed who is here for abdominal pain. He tells me about 40 minutes ago he started to have some diffuse abdominal pain but it is mostly in the left mid abdomen. The pain was 7 out of 10. He did vomit once and it looked slightly black. It was not as dark as when he had a GI bleed in the past and he did not taste the iron taste in his mouth like his prior GI bleed. There has been no black or bloody stools. He is having no fevers or chills. There is no back pain. He denies chest pain or shortness of breath. Not reporting headache or any numbness or weakness anywhere. He is not having urinary symptoms or any other physical complaints. He drinks about 12 beers a day. Last alcohol was a few hours ago. He does feel jittery and frequently withdraws by morning. PAST MEDICAL HISTORY Diagnosis Date - Alcoholism (HCC) - Gallstones - Gastropathy - PUD (peptic ulcer disease) - Thrombocytopenia (HCC) PAST SURGICAL HISTORY Procedure Laterality Date - COLONOSCOPY 2013 polyp - EGD 2012 - EGD 01/20/2018 DONE - ORTHOPEDICS SURGERY HX teen R knee arthroscopy FAMILY HISTORY Problem Relation Age of Onset - Diabetes Mother - other (Cirrhosis) Mother - other (Esophageal Varicies) Mother - other (Lung Cancer) Father Social History Tobacco Use - Smoking status: Former Years: 14 Types: Cigarettes Start date: 08/06/2000 - Smokeless tobacco: Current Types: Chew Vaping Use - Vaping Use: Never used Substance and Sexual Activity - Alcohol use: Not Currently Comment: alcoholic - Drug use: No - Sexual activity: Yes Partners: Female ALLERGIES Allergen Reactions - Dilaudid [Hydromorp* Mental Status Change, Itching Review of Systems All other systems reviewed and are negative. Physical Exam Vitals [03/30/23 0037] BP Pulse Temp Temp src Resp SpO2 Weight Height 138/70 (!) 106 36.7 ?C (98 ?F) Temporal 18 97 % 79.4 kg (175 lb) 1.778 m (5' 10 ) Physical Exam Vitals and nursing note reviewed. Constitutional: General: He is not in acute distress. Appearance: He is not diaphoretic. HENT: Head: Normocephalic and atraumatic. Right Ear: External ear normal. Left Ear: External ear normal. Nose: Nose normal. Eyes: General: Right eye: No discharge. Left eye: No discharge. Conjunctiva/sclera: Conjunctivae normal. Cardiovascular: Rate and Rhythm: Normal rate and regular rhythm. Heart sounds: Normal heart sounds. Pulmonary: Effort: Pulmonary effort is normal. No respiratory distress. Breath sounds: Normal breath sounds. No stridor. No wheezing or rales. Abdominal: General: There is no distension. Palpations: Abdomen is soft. Tenderness: There is abdominal tenderness. Comments: There is some diffuse tenderness with some localizing in the left mid abdomen. No significant guarding or rebound. No specific tenderness localizing in the right upper quadrant. Skin: General: Skin is warm and dry. Findings: No rash. Neurological: Mental Status: He is alert and oriented to person, place, and time. Psychiatric: Behavior: Behavior normal. Diagnostic Testing ED Labs Ordered and Reviewed - No data to display Procedures ED Course / Clinical Impression ED Course as of 03/30/23311 Lavelle Elizabeth's Documentation Sat Mar 30, 2023 0203 Brown stool, heme-negative on exam. 311 Worsening staff reported that he had another fairly large coffee-ground emesis. I am giving him a 500 cc saline bolus and another 4 mg of Zofran. Clinical Impressions as of 03/30/23311 Upper GI bleed Left sided abdominal pain Thrombocytopenia (HCC) History of esophageal varices MDM / Disposition / Plan Epic reviewed - patient has history of esophageal varices. Stools were heme-negative on exam. The patient went on to vomit after eating a couple ice chips and he has coffee-ground emesis that was strong heme positive on Hemoccult test. 2:[address] Koch - noted above. Requesting octreotide bolus and drip. I will place a second IV. Alcohol level was added. Okay for stepdown at [place]. History and Record Review Clinical information obtained from an independent historian. History obtained from or confirmed by: spouse. External record(s) reviewed: prior labs/imaging and prior inpatient record. Findings from review of inpatient records: 12/30/2019 admission for lower GI bleed, EGD normal and discharged for outpatient colonoscopy. Findings from review of prior labs: LFTs slightly improv (more content not included)... Normal [facility] Ethanol SerPl-mCncon 023 Ethanol [Mass/Vol] 79 mg/dL High <11 [facility] Comment on above: Order Comment: Speci men Type: BLOOD SPECIMENOrdering Facility: [facility] Address: [address] [place] [phone] Performed By: #### 5 643-2 ####[facility] [id number] [place] [id number] [place] HISTORY PHYSICALon HISTORY PHYSICAL HNO ID: [id number] Author: Beth Gold MD Service: Critical Care Author Type: Physician Type: HANDP Filed: 03/30/2023 2:58 PM Note Text: [facility] HISTORY AND PHYSICAL SERVICE DATE: 03/30/2023 SERVICE TIME: 12:54 PM For questions regarding patient, please page Beth Gold Click here to page Chief Complaint Hematemesis History of Present Illness 62-year-old male with history of alcohol-related cirrhosis, active alcohol use, adenomatous colon polyp, GERD and? Peptic ulcer disease who was admitted to the SDU for further management of hematemesis. He started feeling unwell last night around midnight, with the onset of moderately severe LLQ and suprapubic pain. He does not remember much about what happened after this, but he vomited. Emesis was dark brown with a component of bright red blood. As a result of the above he presented to the emergency department for further evaluation. On presentation to the ED, afebrile, BP 130/70, HR 106. Labs revealed a hemoglobin of 12.2 [baseline of 15], platelets of 43. CMP revealed an AST of 77 and an ALT of 36, normal kidney function, alcohol level of 79. While at the emergency department, he had 2 large bloody emesis episodes, no hemodynamic instability was noted. He underwent a CT A/P revealing cirrhotic liver morphology with evidence of portal hypertension. He was given 1 L of IV fluids, Zofran for nausea, Protonix for suspected upper GI bleed and transferred to [facility] for further management. He drinks about 4-12 beers per day and experiences withdrawal symptoms if he does not drink regularly. His liver disease has been complicated by EV [grade 1,] and severe thrombocytopenia [platelets over 40s to 50s]. Past Medical History PAST MEDICAL HISTORY Diagnosis Date Alcoholism (HCC) Gallstones Gastropathy PUD (peptic ulcer disease) Thrombocytopenia (HCC) Past Surgical History PAST SURGICAL HISTORY Procedure Laterality Date COLONOSCOPY 2013 polyp EGD 2012 EGD 01/20/2018 DONE ORTHOPEDICS SURGERY HX teen R knee arthroscopy Family History FAMILY HISTORY Problem Relation Age of Onset Diabetes Mother other (Cirrhosis) Mother other (Esophageal Varicies) Mother other (Lung Cancer) Father Social History Social History Tobacco Use Smoking status: Former Years: 14 Types: Cigarettes Start date: 08/06/2000 Smokeless tobacco: Current Types: Chew Vaping Use Vaping Use: Never used Substance Use Topics Alcohol use: Not Currently Comment: alcoholic Drug use: No Medications Current Facility-Administered Medications Medication Dose Route Frequency NaCl 0.9% iv flush bag 20 mL INTRAVENOUS PRN pantoprazole 40 mg injection (PROTONIX) 40 mg INTRAVENOUS BID AC (0600/1600) octreotide iv infusion 500 mcg in NaCl 0.9% 100 mL (SandoSTATIN) 50 mcg/hr INTRAVENOUS CONTINUOUS cefTRIAXone 1 g in D5W 100 mL Vial-Bag (ROCEPHIN) 1 g INTRAVENOUS q 24 H LORazepam 1 mg injection (ATIVAN) 1 mg INTRAVENOUS q 2 H PRN Or LORazepam 2 mg injection (ATIVAN) 2 mg INTRAVENOUS q 2 H PRN Or LORazepam 2 mg injection (ATIVAN) 2 mg INTRAVENOUS q 1 H PRN thiamine 200 mg in NaCl 0.9% 50 mL (VITAMIN B1) 200 mg INTRAVENOUS q 8 H Followed by [START ON 04/02/2023] thiamine 100 mg tab(s) (VITAMIN B1) 100 mg ORAL/FEEDING TUBE TID folic acid 1 mg tab(s) 1 mg ORAL DAILY Allergies Dilaudid [Hydromorphone (Bulk)] Review of Systems Review of Systems Constitutional: Positive for chills, decreased appetite and malaise/fatigue. Negative for diaphoresis, fever and night sweats. Cardiovascular: Negative. Respiratory: Negative. Endocrine: Negative. Gastrointestinal: Positive for abdominal pain and constipation. Genitourinary: Negative. Neurological: Negative. Psychiatric/Behavioral: Positive for depression. The patient has insomnia and is nervous/anxious. Physical Exam BP 135/68 Pulse 80 Temp 37.1 ?C (98.7 ?F) (Oral) Resp 21 Ht 177.8 cm (5' 10 ) Wt 79.2 kg (174 lb 9.7 oz) SpO2 96% BMI 25.05 kg/m? Physical Exam General: Drowsy, easily arousable, no acute distress Lungs: Clear to auscultation bilaterally Cardiovascular: Tachycardic, regular rate and rhythm with no murmurs Abdomen: Soft, lax and nontender, bowel sounds present Extremities: No lower extremity edema Neurological: Drowsy but easily arousable, oriented x3, CN II to XIII within normal, 4 out of 5 power in the upper and lower extremities Intake / Output Intake/Output Summary (Last 24 hours) at 03/30/2023 1254 Last data filed at 03/30/2023 1042 Gross per 24 hour Intake 150 ml Output 650 ml Net -500 ml Work Up Imaging: Labs: CBC: Recent Labs 03/30/23 0650 03/30/23 0100 WBC 2.59* 4.27 HB 10.7* 12.2* HCT 31.4* 34.9* PLT 30* 43* MCV 92.9 93.1 RDWCV 13.0 13.1 NEUTP -- 60.3 ABSNEUT -- 2.58 LYMPHP -- 25.1 MONOP -- 11.0 COAG: No results for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 Comment on above: Performed By: #### P T, CBCDIF, CMP #### [facility] Routine Lab [address] [place] [address] #### AFP #### [facility] Immunology [address] [place] [address] Glucose [Mass/Vol] 89 mg/dL Normal 74-99 [facility] Reference Lab Comment on above: Performed By: #### P T, CBCDIF, CMP #### [facility] Routine Lab [address] [place] [address] #### AFP #### [facility] Immunology [address] [place] [address] Potassium [Moles/Vol] 3.9 mmol/L Normal 3.7-5.1 [facility] Reference Lab Comment on above: Performed By: #### P T, CBCDIF, CMP #### [facility] Routine Lab [address] [place] [address] #### AFP #### [facility] Immunology [address] [place] [address] Protein [Mass/Vol] 7.2 g/dL Normal 6.3-8.0 [facility] Reference Lab Comment on above: Performed By: #### P T, CBCDIF, CMP #### [facility] Routine Lab [address] [place] [address] #### AFP #### [facility] Immunology [address] [place] [address] Sodium [Moles/Vol] 141 mmol/L Normal 136-144 [facility] Reference Lab Comment on above: Performed By: #### P T, CBCDIF, CMP #### [facility] Routine Lab [address] [place] [phone] #### AFP #### [facility] Immunology [address] [place] [phone] [phone] Urea nitrogen [Mass/Vol] 13 mg/dL Normal 9-24 [facility] Reference Lab Comment on above: Performed By: #### P T, CBCDIF, CMP #### [facility] Routine Lab [address] [place] [phone] #### AFP #### [facility] Immunology [address] [place] [phone] CBC and Differentialon 02-02 Abs Baso 0.05 k/uL Normal <0.11 [facility] Reference Lab Comment on above: Performed By: #### P T, CBCDIF, CMP #### [facility] Routine Lab [address] [place] [phone] #### AFP #### [facility] Immunology [address] [place] [phone] Abs Calloway 0.34 k/uL Normal <0.87 [facility] Reference Lab Comment on above: Performed By: #### P T, CBCDIF, CMP #### [facility] Routine Lab [address] [place] [phone] #### AFP #### [facility] Immunology [address] [place] [phone] Abs Neut 3.12 k/uL Normal 1.45-7.50 [facility] Reference Lab Comment on above: Performed By: #### P T, CBCDIF, CMP #### [facility] Routine Lab [address] [place] [address] [phone] #### AFP #### [facility] Immunology [address] [place] [phone] Absolute nRBC <0.01 Normal <0.01 [facility] Reference Lab Comment on above: Performed By: #### P T, CBCDIF, CMP #### [facility] Routine Lab [address] [place] [phone] #### AFP #### [facility] Immunology [address] [phone] Basophils/100 WBC (Bld) 1.0 % Normal [facility] Reference Lab Comment on above: Performed By: #### P T, CBCDIF, CMP #### [facility] Routine Lab [address] [place] [phone] #### AFP #### [facility] Immunology [address] [place] [phone] DTYPE ADIFF Normal [facility] Reference Lab Comment on above: Performed By: #### P T, CBCDIF, CMP #### [facility] Routine Lab [address] [place] [phone] #### AFP #### [facility] Immunology [address] [place] [phone] Eosinophils (Bld) [#/Vol] 0.26 10*3/uL Normal <0.46 [facility] Reference Lab Comment on above: Performed By: #### P T, CBCDIF, CMP #### [facility] Routine Lab [address] [place] [phone] #### AFP #### [facility] Immunology [address] [place] [phone] Eosinophils/100 WBC (Bld) 5.1 % Normal [facility] Reference Lab Comment on above: Performed By: #### P T, CBCDIF, CMP #### [facility] Routine Lab [address] [place] [phone] #### AFP #### [facility] Immunology [address] [place] [phone] Erythrocyte distribution width (RBC) [Ratio] 15.1 % High 11.5-15.0 [facility] Reference Lab Comment on above: Performed By: #### P T, CBCDIF, CMP #### [facility] Routine Lab [address] [place] [phone] #### AFP #### [facility] Immunology [address] [place] [phone] Hematocrit (Bld) [Volume fraction] 37.2 % Low 39.0-51.0 [facility] Reference Lab Comment on above: Performed By: #### P T, CBCDIF, CMP #### [facility] Routine Lab [address] [place] [phone] #### AFP #### [facility] Immunology [address] [place] [phone] Hemoglobin (Bld) [Mass/Vol] 11.9 g/dL Low 13.0-17.0 [facility] Reference Lab Comment on above: Performed By: #### P T, CBCDIF, CMP #### [facility] Routine Lab [address] [place] [phone] #### AFP #### [facility] Immunology [address] [place] [phone] Lymphocytes (Bld) [#/Vol] 1.31 10*3/uL Normal 1.00-4.00 [facility] Reference Lab Comment on above: Performed By: #### P T, CBCDIF, CMP #### [facility] Routine Lab [address] [place] [phone] #### AFP #### [facility] Immunology [address] [place] [phone] Lymphocytes/100 WBC (Bld) 25.8 % Normal [facility] Reference Lab Comment on above: Performed By: #### P T, CBCDIF, CMP #### [facility] Routine Lab [address] [place] [address] #### AFP #### [facility] Immunology [address] [place] [address] MCH (RBC) [Entitic mass] 27.8 pG Normal 26.0-34.0 [facility] Reference Lab Comment on above: Performed By: #### P T, CBCDIF, CMP #### [facility] Routine Lab [address] [place] [address] #### AFP #### [facility] Immunology [address] [place] [address] MCHC (RBC) [Mass/Vol] 32.0 g/dL Normal 30.5-36.0 [facility] Reference Lab Comment on above: Performed By: #### P T, CBCDIF, CMP #### [facility] Routine Lab [address] [place] [phone] #### AFP #### [facility] Immunology [address] [place] [address] MCV (RBC) [Entitic vol] 86.9 fL Normal 80.0-100.0 [facility] Reference Lab Comment on above: Performed By: #### P T, CBCDIF, CMP #### [facility] Routine Lab [address] [place] [address] #### AFP #### [facility] Immunology [address] [place] [address] Monocytes/100 WBC (Bld) 6.7 % Normal [facility] Reference Lab Comment on above: Performed By: #### P T, CBCDIF, CMP #### [facility] Routine Lab [address] [place] [address] #### AFP #### [facility] Immunology [address] [place] [address] Neutrophils/100 WBC (Bld) 61.4 % Normal [facility] Reference Lab Comment on above: Performed By: #### P T, CBCDIF, CMP #### [facility] Routine Lab [address] [place], [place] [address] #### AFP #### [facility] Immunology [address] [place], [place] [address] NRBCs 0.0 /100 WBC Normal 0 [facility] Reference Lab Comment on above: Performed By: #### P T, CBCDIF, CMP #### [facility] Routine Lab [address] [place] [address] #### AFP #### [facility] Immunology [address] [place] [phone] Platelet mean volume (Bld) [Entitic vol] 9.8 fL Normal 9.0-12.7 [facility] Reference Lab Comment on above: Performed By: #### P T, CBCDIF, CMP #### [facility] Routine Lab [address] [place] [phone] #### AFP #### [facility] Immunology [address] [place] [phone] Platelets (Bld) [#/Vol] Low 150-400 [facility] Reference Lab Comment on above: Result Comment: 80 N o clot detected. Performed By: #### P T, CBCDIF, CMP #### [facility] Routine Lab [address] [place] [phone] #### AFP #### [facility] Immunology [address] [place], [place] [address] RBC (Bld) [#/Vol] 4.28 10*6/uL Normal 4.20-6.00 [facility] Reference Lab Comment on above: Performed By: #### P T, CBCDIF, CMP #### [facility] Routine Lab [address] [place], [place] [address] #### AFP #### [facility] Immunology [address] [place] [phone] WBC (Bld) [#/Vol] 5.08 10*3/uL Normal 3.70-11.00 [facility] Reference Lab Comment on above: Performed By: #### P T, CBCDIF, CMP #### [facility] Routine Lab [address] [place] [address] #### AFP #### [facility] Immunology [address] [place] [address] Protimeon 02-02-2019 INR Coag (PPP) [Relative time] 1.1 {INR} Normal 0.9-1.3 [facility] Reference Lab Comment on above: Performed By: #### P T, CBCDIF, CMP #### [facility] Routine Lab [address] [place] [address] #### AFP #### [facility] Immunology [address] [place] [address] PT Coag (PPP) [Time] 11.9 s Normal 9.7-13.0 [facility] Reference Lab Comment on above: Performed By: #### P T, CBCDIF, CMP #### [facility] Routine Lab [address] [place] [address] #### AFP #### [facility] Immunology [address] [place] [address] BASIC METABOLIC PANELon 06-0 Anion gap molar conc 10 mmol/L Normal 10 - 20 [facility] Comment on above: Performed By: #### P TINR #### [facility] [address] [place] [address] Calcium mass conc 8.7 mg/dL Normal 8.6 - 10.3 [facility] Comment on above: Performed By: #### P TINR #### [facility] [address] [place] [address] Chloride molar conc 105 mmol/L Normal 98 - 107 [facility] Comment on above: Performed By: #### P TINR #### [address] [address] Creatinine mass conc 1.28 mg/dL Normal 0.50 - 1.30 [facility] Comment on above: Performed By: #### P TINR #### [address] [address] GFR- AM. 71 mL/min/1.73m2 Normal >60 [facility] Comment on above: Result Comment: CALC ULATIONS OF ESTIMATED GFR ARE PERFORMED USING THE MDRD STUDY EQUATION FOR THE IDMS-TRACEABLE CREATININE METHODS. CLIN CHEM 2007;53:766-72 Performed By: #### P TINR #### [address] [address] GFR-NON AM. 59 mL/min/1.73m2 Abnormal >60 [facility] Comment on above: Performed By: #### P TINR #### [address] [address] Glucose mass conc 109 mg/dL High 74 - 99 [facility] Comment on above: Performed By: #### P TINR #### [address] [address] HCO3 molar conc (Bld) 28 mmol/L Normal 21 - 32 [facility] Comment on above: Performed By: #### P TINR #### [address] [address] Potassium molar conc 3.9 mmol/L Normal 3.5 - 5.3 [facility] Comment on above: Performed By: #### P TINR #### [address] [address] Sodium molar conc 139 mmol/L Normal 136 - 145 [facility] Comment on above: Performed By: #### P TINR #### [address] [address] Urea nitrogen mass conc 20 mg/dL Normal 6 - 23 [facility] Comment on above: Performed By: #### P TINR #### [address] [address] CBCon 01-06-2019 Erythrocyte distribution width Ratio (RBC) 18.5 % High 11.5 - 14.5 [facility] Comment on above: Performed By: #### P TINR #### [address] [address] Hematocrit Volume Fraction (Bld) 29.8 % Low 41.0 - 52.0 [facility] Comment on above: Performed By: #### P TINR #### [address] [address] Hemoglobin mass conc (Bld) 10.0 g/dL Low 13.5 - 17.5 [facility] Comment on above: Performed By: #### P TINR #### [address] [address] MCHC mass conc (RBC) 33.6 g/dL Normal 32.0 - 36.0 [facility] Comment on above: Performed By: #### P TINR #### [address] [address] MCV Entitic volume (RBC) 88 fL Normal 80 - 100 [facility] Comment on above: Performed By: #### P TINR #### [address] [address] Nucleated RBC/100 WBC Ratio (Bld) 0.0 /100 WBC Normal 0.0 - 0.0 [facility] Comment on above: Performed By: #### P TINR #### [address] [address] Platelets #/vol (Bld) 55 10*3/uL Low 150 - 450 [facility] Comment on above: Performed By: #### P TINR #### [address] [address] RBC #/vol (Bld) 3.40 x10E12/L Low 4.50 - 5.90 [facility] Comment on above: Performed By: #### P TINR #### [address] [address] WBC #/vol (Bld) 5.0 10*3/uL Normal 4.4 - 11.3 [facility] Comment on above: Performed By: #### P TINR #### [facility] [address] [place] [address] Discharge [id number] Protein mass conc Discharge Orders: Anticipated Discharge Date: Anticipated Discharge [id number] Provider FINAL REVIEW of Orders: Final Review: Final Review of Medication Reconciliation and Orders Completedby Physician Reviewing ProviderMarshallstalessandro Welch DO (Resident) at 06-Jan-2019 14:04:19 Electronic Signatures: Son Welch ( (Resident)) (Signed 06-Jan-2019 14:04) Authored: Discharge Orders, Provider FINAL REVIEW of Orders, [facility] Director Process Improvement Summary Last Updated: 06-Jan-2019 14:04 by Son Welch ( (Resident)) Normal [facility] MAGNESIUMon 01-06-2019 Magnesium mass conc 1.89 mg/dL Normal 1.60 - 2.40 [facility] Comment on above: Performed By: #### P TINR #### [address] [address] PHOSPHOROUSon 01-06-2019 Phosphate mass conc 3.2 mg/dL Normal 2.5 - 4.9 [facility] Comment on above: Result Comment: The performance characteristics of phosphorus testing in heparinized plasma have been validated by the individual laboratory site where testing is performed. Testing on heparinized plasma is not approved by the FDA; however, such approval is not necessary. Performed By: #### P TINR #### [address] [address] CBC AND DIFFERENTIALon 01-05 % AUTOMATED IMMATURE GRAN 0.4 % Normal 0.0 - 0.9 [facility] Comment on above: Result Comment: Perc ent differential counts (%) should be interpreted in the context of the absolute cell counts (cells/L). Performed By: #### C BCDF ####[facility] [place] [address] % NEUTROPHIL 48.9 % Normal 40.0 - 80.0 [facility] Comment on above: Performed By: #### C BCDF ####[facility] [place] [address] Basophils/100 WBC (Bld) 0.01 x10E9/L Normal 0.00 - 0.10 [facility] Comment on above: Performed By: #### C BCDF ####[address] [place] [address] Basophils/100 WBC (Bld) 0.2 % Normal 0.0 - 2.0 [facility] Comment on above: Performed By: #### C BCDF ####[address] [place] [address] Eosinophils #/vol (Bld) 0.08 10*3/uL Normal 0.00 - 0.70 [facility] Comment on above: Performed By: #### C BCDF ####[address] [place] [address] Eosinophils/100 WBC (Bld) 1.6 % Normal 0.0 - 6.0 [facility] Comment on above: Performed By: #### C BCDF ####[address] [place] [address] Erythrocyte distribution width Ratio (RBC) 18.9 % High 11.5 - 14.5 [facility] Comment on above: Performed By: #### C BCDF ####[address] [place] [address] Hematocrit Volume Fraction (Bld) 31.5 % Low 41.0 - 52.0 [facility] Comment on above: Performed By: #### C BCDF ####[address] [place] [address] Hemoglobin mass conc (Bld) 10.3 g/dL Low 13.5 - 17.5 [facility] Comment on above: Performed By: #### C BCDF ####[address] [place] [address] Lymphocytes #/vol (Bld) 1.97 10*3/uL Normal 1.20 - 4.80 [facility] Comment on above: Performed By: #### C BCDF ####[address] [place] [address] Lymphocytes/100 WBC (Bld) 39.5 % Normal 13.0 - 44.0 [facility] Comment on above: Performed By: #### C BCDF ####[address] [address] MCHC mass conc (RBC) 32.7 g/dL Normal 32.0 - 36.0 [facility] Comment on above: Performed By: #### C BCDF ####[address] [address] MCV Entitic volume (RBC) 88 fL Normal 80 - 100 [facility] Comment on above: Performed By: #### C BCDF ####[address] [address] Monocytes #/vol (Bld) 0.47 10*3/uL Normal 0.10 - 1.00 [facility] Comment on above: Performed By: #### C BCDF ####[address] [address] Monocytes/100 WBC (Bld) 9.4 % Normal 2.0 - 10.0 [facility] Comment on above: Performed By: #### C BCDF ####[place] [id number] Neutrophils #/vol (Bld) 2.44 10*3/uL Normal 1.20 - 7.70 [facility] Comment on above: Performed By: #### C BCDF ####[address] [address] Nucleated RBC/100 WBC Ratio (Bld) 0.0 /100 WBC Normal 0.0 - 0.0 [facility] Comment on above: Performed By: #### C BCDF ####[address] [address] Platelets #/vol (Bld) 53 10*3/uL Low 150 - 450 [facility] Comment on above: Performed By: #### C BCDF ####[address] [address] RBC #/vol (Bld) 3.58 x10E12/L Low 4.50 - 5.90 [facility] Comment on above: Performed By: #### C BCDF ####[address] [address] WBC #/vol (Bld) 5.0 10*3/uL Normal 4.4 - 11.3 [facility] Comment on above: Performed By: #### C BCDF ####[facility] [place] [address] CHEST 1 VIEWon 01-05-2019 CHEST 1 VIEW Patient Name: GALINDO SNOW STUDY: CHEST 1 VIEW; 01/04/2019 11:05 pm INDICATION: baseline. COMPARISON: None. ACCESSION NUMBER(S): [id number] ORDERING CLINICIAN: VICKI PEÑA FINDINGS: The cardiac silhouette is normal in size. No focal airspace consolidation or pleural effusion. No pneumothorax. IMPRESSION: No airspace consolidation or pleural effusion. Electronically signed by: ELIZABETH GERMAN MD Normal [facility] COMPREHENSIVE PANELon 2018 Albumin mass conc 3.3 g/dL Low 3.4 - 5.0 [facility] Comment on above: Performed By: #### P TINR #### [facility] [address] [place] [id number] ALP enzyme act/vol 76 U/L Normal 33 - 120 [facility] Comment on above: Performed By: #### P TINR #### [facility] [address] [place] [id number] ALT enzyme act/vol 25 U/L Normal 10 - 52 [facility] Comment on above: Result Comment: Layla ents treated with Sulfasalazine may generate falsely decreased results for ALT. Performed By: #### P TINR #### [facility] [address] [place] [id number] Anion gap molar conc 10 mmol/L Normal 10 - 20 [facility] Comment on above: Performed By: #### P TINR #### [facility] [address] [place] [address] AST enzyme act/vol 30 U/L Normal 9 - 39 [facility] Comment on above: Performed By: #### P TINR #### [facility] [address] [place] [address] Bilirubin mass conc 1.1 mg/dL Normal 0.0 - 1.2 [facility] Comment on above: Performed By: #### P TINR #### [address] [address] Calcium mass conc 7.6 mg/dL Low 8.6 - 10.3 [facility] Comment on above: Performed By: #### P TINR #### [address] [address] Chloride molar conc 107 mmol/L Normal 98 - 107 [facility] Comment on above: Performed By: #### P TINR #### [address] [address] Creatinine mass conc 0.92 mg/dL Normal 0.50 - 1.30 [facility] Comment on above: Performed By: #### P TINR #### [address] [address] GFR- AM. >60 Normal >60 [facility] Comment on above: Result Comment: CALC ULATIONS OF ESTIMATED GFR ARE PERFORMED USING THE MDRD STUDY EQUATION FOR THE IDMS-TRACEABLE CREATININE METHODS. CLIN CHEM 2007;53:766-72 Performed By: #### P TINR #### [address] [address] GFR-NON AM. >60 Normal >60 [facility] Comment on above: Performed By: #### P TINR #### [address] [address] Glucose mass conc 124 mg/dL High 74 - 99 [facility] Comment on above: Performed By: #### P TINR #### [address] [address] HCO3 molar conc (Bld) 27 mmol/L Normal 21 - 32 [facility] Comment on above: Performed By: #### P TINR #### [address] [address] Potassium molar conc 4.0 mmol/L Normal 3.5 - 5.3 [facility] Comment on above: Performed By: #### P TINR #### [address] [address] Protein mass conc 5.6 g/dL Low 6.4 - 8.2 [facility] Comment on above: Performed By: #### P TINR #### [facility] [address] [place] [address] Sodium molar conc 140 mmol/L Normal 136 - 145 [facility] Comment on above: Performed By: #### P TINR #### [facility] [address] [place] [address] Urea nitrogen mass conc 30 mg/dL High 6 - 23 [facility] Comment on above: Performed By: #### P TINR #### [facility] [address] [place] [id number] Consult-Gastroenterologyon 0 01-05-2019 Consult-Gastroente rology Service: Service: Gastroenterology Consult: Consult requested by (Attending Name): [employer] Reason: Upper gastrointestinal hemorrhage History of Present Illness: HPI: This patient has long-standing history of alcoholism. 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 About a year ago he was found to have chronic iron deficiency anemia he had endoscopy by Dr. Kenia Smith this showed 1+ esophageal varices and small bowel biopsies was negative for any malabsorption about a month ago he underwent a colonoscopy as well. He quit drinking for nearly a year but about 2 weeks ago he started or drink 6 again with increasing quantities of alcohol and the he started drinking again very heavily. He was brought in because of the coffee-ground emesis and some hematemesis. He did not have any syncope or change in mental status or withdrawal symptoms. Currently he is very stable is currently nothing by mouth he denies any abdominal pain but he feels his abdomen is distended he has no other symptoms. Her past medical history as above long-standing history of alcoholism iron deficiency anemia with previous endoscopy and colonoscopy which showed 1+ varices A social history as above. lives with his he has a child of his own and his 2 stepchildren. Does not smoke cigarettes or abuse drugs. 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 Family history significant in that his mother had cirrhosis of the liver thought to be from nonalcoholic liver disease and esophageal varices A complete 12 review system is obtained which is negative other than what is stated above in the history of present illness denies cardiac pulmonary neurological problems we did not have any change in mental status or any withdrawal symptoms denies any neuropathy Allergies: Dilaudid: Rash Objective: Physical Exam: Constitutional: Well developed, awake/alert/oriented x3, no distress, alert and cooperative Eyes: PERRL, EOMI, clear sclera ENMT: mucous membranes moist, no apparent injury, no lesions seen Head/Neck: Neck supple, no apparent injury, thyroid without mass or tenderness, No JVD, trachea midline, no bruits Respiratory/Thorax: Patent airways, CTAB, normal breath sounds with good chest expansion, thorax symmetric Cardiovascular: Regular, rate and rhythm, no murmurs, 2+ equal pulses of the extremities, normal S 1and S 2 Gastrointestinal: Abdomen mildly distended bowel sounds are present no collateral circulation IV could not detect any fluid thrill or shifting dullness suggest any ascites no hernias or palpable aneurysms. Good bowel sounds were heard. Genitourinary: No Discharge, vesicles or other abnormalities Musculoskeletal: ROM intact, no joint swelling, normal strength Extremities: normal extremities, no cyanosis edema, contusions or wounds, no clubbing Neurological: alert and oriented x3, intact senses, motor, response and reflexes, normal strength Breast: No masses, tenderness, no discharge or discoloration Lymphatic: No significant lymphadenopathy Psychological: Appropriate mood and behavior very cooperative no tremors no symptoms of alcohol withdrawal. Skin: Warm and dry, no lesions, no rashes Recent Lab Results: Results: I have reviewed these laboratory results: Complete Blood Count + Differential 05-Jan-2019 05:40:00 ResultValue White Blood Cell Count 5.0 Nucleated Erythrocyte Count 0.0 Red Blood Cell Count 3.58 L HGB 10.3 L HCT 31.5 L MCV 88 MCHC 32.7 PLT 53 L RDW-CV 18.9 H Neutrophil % 48.9 Immature Granulocytes % 0.4 Lymphocyte % 39.5 Monocyte % 9.4 Eosinophil % 1.6 Basophil % 0.2 Neutrophil Count 2.44 Lymphocyte Count 1.97 Monocyte Count 0.47 Eosinophil Count 0.08 Basophil Count 0.01 Comprehensive Metabolic Panel 05-Jan-2019 05:40:00 ResultValue Glucose, Serum 124 H NA 140 K 4.0 CL 107 Bicarbonate, Serum 27 Anion Gap, Serum 10 BUN 30 H CREAT 0.92 GFR-Non >60 GFR- >60 Calcium, Serum 7.6 L ALB 3.3 L ALKP 76 T Pro 5.6 L T Bili 1.1 Alanine Aminotransferase, Serum 25 Aspartate Transaminase, Serum 30 PT + INR, Plasma 04-Jan-2019 19:26:00 ResultValue Prothrombin Time, Plasma 16.0 H International Normalized Ratio, Plasma 1.4 H Assessment: This patient has long history of alcoholism and alcoholic liver disease. He also has chronic iron deficiency anemia in the past and has received intravenous iron infusions 2 years ago he had upper endoscopy showed only 1+ varices and no other upper GI abnormality was noted in the small bowel biopsies were negative colonoscopy which was apparently not revealing any major findings just about a month ago. I have no reports of the same. A year ago the patient also had an ultrasound of the liver which showed evidence of what appeared to be cirrhotic changes as well as the splenomegaly which was mild he completely quit drinking in about 2 weeks ago when he started drinking again and resulted now in upper GI bleed. Differential diagnoses would be alcoholic gastritis and Petra-Campuzano syndrome and less likely esophageal varices bleeding. He has not any withdrawal symptoms he has no signs of encephalopathy His prothrombin time is prolonged at 16.6 seconds last hemoglobin was 10.2 Recommendations I would recommend that he should have an upper GI endoscopy examination to evaluate the cause of his upper GI bleeding. Historically this is most likely on the basis severe gastritis or the esophagitis rather than from mild leaking esophageal varices as well as esophageal varices very small about a year ago and the he started drinking alcohol again only 2 weeks ago. Electronic Signatures: Benjamin Mayo) (Signed 05-Jan-2019 11:50) Authored: Service, History of Present Illness, Allergies, Objective, Assessment/Recommendations, Signature/Cosignature/Attest ation Last Updated: 05-Jan-2019 11:50 by Benjamin Mayo) Normal [facility] Consult-General Internal Med talya 01-05-2019 Consult-General Internal Medicine Service: Service: General Internal Medicine History of Present Illness: HPI: She is a 48-year-old white male with a past medical history significant for alcoholic cirrhosis, alcohol abuse and history of gastric ulcers who presented [facility] with hematemesis. Patient started having emesis at home with blood at home and then when he was in the emergency room he had another one and patient was admitted to ICU because of low blood pressure and tachycardia and emesis. Denies any fevers or chills or nausea or diaphoresis. Patient has history also of esophageal varices. Allergies: Dilaudid: Rash Objective: Objective Information: GENERAL: Alert and oriented times three. Not in any distress. Well-nourished. HEENT:PERRLA, EOM'S normal. FUNDI benign. NECK:Supple,no thyromegaly,or lymph adenopathy. LUNGS: Clear to P&A. No asymmetry. HEART:S1S2 normal. No audible murmurs or gallops. ABDOMEN: Soft, benign, no hernias, normal bowel sounds. ASSISTANT TRACK AND FIELD COACH/PSYCH:Grossly intact, no focal deficit. SKIN: Intact, no rashes, ulcers or ecchymosis noted. EXTREMITIES/ MUSC-SKELETAL: No cyanosis. Palpable peripheral pulses/ full range of motion. No edema. Medications: Medications: Continuous Medications ---- No continuous medications are active Scheduled Medications ---- 1. cefTRIAXone 2 gram/Dextrose 5% IVPB Premixed Soln 50 mL: 50 mL IntraVenous Piggyback Every 24 Hours 2. Citalopram (CELEXA): 20 mg Oral Daily 3. Fluticasone 50 microgram/ Nasal Inhalation: 1 spray(s) Each Nostril Daily 4. Folic Acid IV Piggy Back: 1 mg IntraVenous Piggyback Daily 5. Pantoprazole Injectable: 40 mg IntraVenous Push Every 12 Hours 6. Thiamine IV Piggy Back: 500 mg IntraVenous Piggyback Daily PRN Medications ---- 1. Ondansetron Injectable: 4 mg IntraVenous Push Every 6 Hours Recent Lab Results: Results: I have reviewed these laboratory results: Complete Blood Count + Differential Trending View [id number] 05:40:00 04-Jan-2019 19:26:00 White Blood Cell Count5.0 11.2 Nucleated Erythrocyte Count0.0 0.0 Red Blood Cell Count3.58 L 4.30 L HGB10.3 L 12.3 L HCT31.5 L 37.0 L MCV88 86 MCHC32.7 33.2 PLT53 L 89 L RDW-CV18.9 H 19.0 H Neutrophil %48.9 72.9 Immature Granulocytes %0.4 0.5 Lymphocyte %39.5 19.1 Monocyte %9.4 6.2 Eosinophil %1.6 0.9 Basophil %0.2 0.4 Neutrophil Count2.44 8.18 H Lymphocyte Count1.97 2.15 Monocyte Count0.47 0.70 Eosinophil Count0.08 0.10 Basophil Count0.01 0.04 Comprehensive Metabolic Panel 05-Jan-2019 05:40:00 ResultValue Glucose, Serum 124 H NA 140 K 4.0 CL 107 Bicarbonate, Serum 27 Anion Gap, Serum 10 BUN 30 H CREAT 0.92 GFR-Non >60 GFR- >60 Calcium, Serum 7.6 L ALB 3.3 L ALKP 76 T Pro 5.6 L T Bili 1.1 Alanine Aminotransferase, Serum 25 Aspartate Transaminase, Serum 30 Lactate, Level Trending View [id number] 05:40:00 04-Jan-2019 19:26:00 Lactate, Level1.3 3.5 H Lipase, Serum Trending View [id number] 05:40:00 04-Jan-2019 19:26:00 Lipase, Serum12 22 Magnesium, Serum 05-Jan-2019 05:40:00 ResultValue Magnesium, Serum 1.68 Phosphorus, Serum 05-Jan-2019 05:40:00 ResultValue Phosphorus, Serum 2.5 Hemoglobin + Hematocrit 04-Jan-2019 22:50:00 ResultValue HCT 29.8 L HGB 9.8 L Hepatic Function Panel 04-Jan-2019 19:26:00 ResultValue Aspartate Transaminase, Serum 39 ALB 3.9 T Bili 1.2 Bilirubin, Serum Direct - Conjugated 0.3 ALKP 97 Alanine Aminotransferase, Serum 31 T Pro 7.1 Basic Metabolic Panel 04-Jan-2019 19:26:00 ResultValue Glucose, Serum 144 H NA 139 K 4.0 CL 101 Bicarbonate, Serum 25 Anion Gap, Serum 17 BUN 29 H CREAT 0.92 GFR-Non >60 GFR- >60 Calcium, Serum 9.1 PT + INR, Plasma 04-Jan-2019 19:26:00 ResultValue Prothrombin Time, Plasma 16.0 H International Normalized Ratio, Plasma 1.4 H Activated Partial Thromboplastin Time 04-Jan-2019 19:26:00 ResultValue Activated Partial Thromboplastin Time 33 Radiology Results: Results: Impression: No airspace consolidation or pleural effusion. Xray Chest 1 View [Jan 05 2019 12:37AM] Assessment: Upper GI bleeding most probably secondary to either gastric ulcers versus esophageal viruses Alcohol abuse and patient states that he stopped drinking for one year and last week he had a lot of stress and he was taking Lexapro and he quit it and he started drinking again. Alcohol liver cirrhosis. Acute blood loss anemia. History of anxiety. Patient is admitted to ICU. Serial H&H's and IV Protonix. Seem by GI and having endoscopy this afternoon. Thank you for the consult and will follow with you. Medical records and labs reviewed. Electronic Signatures: Kenia Morales) (Signed 06-Jan-2019 09:19) Authored: Service, History of Present Illness, Allergies, Objective, Assessment/Recommendations, Signature/Cosignature/Attest ation Last Updated: 06-Jan-2019 09:19 by Kenia Morales) [facility] Daily Progress Note-Critical Careon 01-05-2019 Protein mass conc Service: Critical Ca re Subjective Data: GALINDO SNOW is a 48 year old Male who is Hospital Day # 2. Additional Information: Feels significantly better night and day difference compared to admission. Objective Data: Objective Information: ---- Intake and Output ----- Mn[facility] Jan 05, 2019 2:00 [id number] Jan 05, 2019 6:00 [id number] Jan 04, 2019 10:00 [id number] The Intake and Output Totals for the last 24 hours are: [facility] [id number] Pain reported at 01/05 14:15: 0 = None Weights 01/05 14:03: Weight in kg (Weight (kg)) 86.1 01/05 14:03: Weight in lbs ((lbs)) 189.8 01/05 14:03: BMI (kg/m2) (BMI (kg/m2)) 27.235 ---- Intake and Output ----- Mn/Dy/Year TimeIntakeOutputNet Jan 05, 2019 2:00 [id number] Jan 05, 2019 6:00 [id number] Jan 04, 2019 10:00 [id number] The Intake and Output Totals for the last 24 hours are: [facility] [id number] Medication: Medications: Continuous Medications ---- No continuous medications are active Scheduled Medications ---- 1. cefTRIAXone 2 gram/Dextrose 5% IVPB Premixed Soln 50 mL: 50 mL IntraVenous Piggyback Every 24 Hours 2. Citalopram (CELEXA): 20 mg Oral Daily 3. Fluticasone 50 microgram/ Nasal Inhalation: 1 spray(s) Each Nostril Daily 4. Folic Acid IV Piggy Back: 1 mg IntraVenous Piggyback Daily 5. Pantoprazole Injectable: 40 mg IntraVenous Push Every 12 Hours 6. Thiamine IV Piggy Back: 500 mg IntraVenous Piggyback Daily PRN Medications ---- 1. Ondansetron Injectable: 4 mg IntraVenous Push Every 6 Hours Recent Lab Results: Results: I have reviewed these laboratory results: Complete Blood Count + Differential Trending View [id number] 05:40:00 04-Jan-2019 19:26:00 White Blood Cell Count5.0 11.2 Nucleated Erythrocyte Count0.0 0.0 Red Blood Cell Count3.58 L 4.30 L HGB10.3 L 12.3 L HCT31.5 L 37.0 L MCV88 86 MCHC32.7 33.2 PLT53 L 89 L RDW-CV18.9 H 19.0 H Neutrophil %48.9 72.9 Immature Granulocytes %0.4 0.5 Lymphocyte %39.5 19.1 Monocyte %9.4 6.2 Eosinophil %1.6 0.9 Basophil %0.2 0.4 Neutrophil Count2.44 8.18 H Lymphocyte Count1.97 2.15 Monocyte Count0.47 0.70 Eosinophil Count0.08 0.10 Basophil Count0.01 0.04 Comprehensive Metabolic Panel 05-Jan-2019 05:40:00 ResultValue Glucose, Serum 124 H NA 140 K 4.0 CL 107 Bicarbonate, Serum 27 Anion Gap, Serum 10 BUN 30 H CREAT 0.92 GFR-Non >60 GFR- >60 Calcium, Serum 7.6 L ALB 3.3 L ALKP 76 T Pro 5.6 L T Bili 1.1 Alanine Aminotransferase, Serum 25 Aspartate Transaminase, Serum 30 Lactate, Level Trending View [id number] 05:40:00 04-Jan-2019 19:26:00 Lactate, Level1.3 3.5 H Lipase, Serum Trending View [id number] 05:40:00 04-Jan-2019 19:26:00 Lipase, Serum12 22 Magnesium, Serum 05-Jan-2019 05:40:00 ResultValue Magnesium, Serum 1.68 Phosphorus, Serum 05-Jan-2019 05:40:00 ResultValue Phosphorus, Serum 2.5 Hemoglobin + Hematocrit 04-Jan-2019 22:50:00 ResultValue HCT 29.8 L HGB 9.8 L Hepatic Function Panel 04-Jan-2019 19:26:00 ResultValue Aspartate Transaminase, Serum 39 ALB 3.9 T Bili 1.2 Bilirubin, Serum Direct - Conjugated 0.3 ALKP 97 Alanine Aminotransferase, Serum 31 T Pro 7.1 Basic Metabolic Panel 04-Jan-2019 19:26:00 ResultValue Glucose, Serum 144 H NA 139 K 4.0 CL 101 Bicarbonate, Serum 25 Anion Gap, Serum 17 BUN 29 H CREAT 0.92 GFR-Non >60 GFR- >60 Calcium, Serum 9.1 PT + INR, Plasma 04-Jan-2019 19:26:00 ResultValue Prothrombin Time, Plasma 16.0 H International Normalized Ratio, Plasma 1.4 H Radiology Results: Results: Impression: No airspace consolidation or pleural effusion. Xray Chest 1 View [Jan 05 2019 12:37AM] Assessment and Plan: Assessment: Allergies Dilaudid Social hx : Used to be a heavy drinker, was sober for over a year and stated drinking three days ago. Former nicotine use PMH: As above PSH: As above Clinical Examination: General appearance: not in pain or distress, in no respiratory distress HEENT: [Atraumatic/normocephalic, EOMI, HERMES, pharynx clear, moist mucosa, redness of the uvula appreciated] Neck: Supple, no jugular venous distension, lymphadenopathy, thyromegaly or carotid bruits Chest: Decreased breath sounds, no wheezing, +ve crackles and no tenderness over ribs Cardiovascular: Normal S1 , S2, regular rate and rhythm, no murmur, rub or gallop Abdomen: Normal sounds present, soft, lax with no tenderness, no hepatosplenomegaly, and no masses Extremities: No edema. Pulses are equally present. Skin: intact, no rashes Neurologic: Alert and oriented x 3, No focal deficit Investigations: Labs, radiological imaging and cardiac work up were reviewed Assessment & Plan: Patient is a 48-year-ol man with prior gastric ulcers, Cholelithiases alcoholic cirrhosis Alcohol abuse and colonic polyp who presents to [facility] with hematemesis He had one episode at home and one in the ED. Patient use to drink heavily for over 30 years, has been sober for over a year but started drinking again three days ago. Recent colonoscopy showed one polyp that was removed. Recent EGD did show varices 01/05/2019 Improved with resolved vomiting today. HgB stable. Planned EGD today # Hematemesis - Upper GI bleeding ( variceal bleed ) # Acute blood loss anemia # Alcohol dependence # Gastric ulcers # Hepatic cirrhosis - stated Hx Neurological System: - supportive care, no acute problems Cardiovascular System: No Echo data on file - remains on monitor in ICU Respiratory System: - No acute problems Gastrointestinal System: Diet: Full liquid diet per GI - PPI 40 BID given IV -GI recs Endocrine System: - no acute issues, euglycemic Renal System: Creatinine 0.92, suspected baseline Hematological System: - monitor H&H Infection Disease System: - Ceftriaxone 2mg daily IV for SBP prophylaxis Vascular system & Extremities: Peripheral IVs only DVT Prophylaxis: SCDs GI Prophylaxis: on BID pantoprazole 40mg IV DIET: Full liquid IVF: stopped LR 100m/hr infusion with diet resumption Therapies: none Activity: as tolerated Consults: GI, medicine Disposition: may transfer upstairs today Attending note: hematemesis last few days, no aggravating or relieving factors, subsided, associated gen weakness, URIAS, dizziness, no CP, ABD PAIN All other systems reviewed and are negative OW PMH, social H, family H reviewed and unchanged from initial note PE: CONSTITUTIONAL: AAOX3 HEENT:NC, AT, PERRL, EOMI NECK: trachea midline, no masses CVS: regular rythm, normal rate, no murmurs/gallows/rubs RESPIRATORY: no crackles, no wheezing, no accessory muscle use, no tenderness ABDOMEN: ND, NT, ABS LYMPHATICS: no LAD EXTREMITIES: 1+ Edema BL LE, no cyanosis, no clubbing SKIN: no rash, intact NEURO: moves all 4 extr, intact sensory exam, normal speech PSYCHIATRIC: normal affect, no depression I have obtained HPI and systemic review independently. I have performed my own PE, reviewed lab data and viewed imaging studies. I agree with residents assessment and plan above. Signature/Cosignature/Attest ation: Note Completion: Attending AttestationI saw and evaluated the patient. I personally obtained the miranda and critical portions of the history and physical exam or was physically present for miranda and critical portions performed by the resident/fellow. I reviewed the resident/fellows documentation and discussed the patient with the resident/fellow. I agree with the resident/fellows medical decision making as documented in the note. I personally evaluated the patient [id number] Electronic Signatures: Luis Sweet (DO (Resident)) (Signed 05-Jan-2019 17:28) Authored: Service, Subjective Data, Objective Data, Assessment and Plan, Signature/Cosignature/Attest ation Denise Stack) (Signed 05-Jan-2019 18:37) Authored: Objective Data, Assessment and Plan, Signature/Cosignature/Attest ation Co-Signer: Service, Subjective Data, Objective Data, Assessment and Plan, Signature/Cosignature/Attest ation Last Updated: 05-Jan-2019 18:37 by Denise Stack) Normal [facility] Discharge Planning Noteon Discharge Planning Note Discharge Needs Assessment: Discharge Planning Assessment [id number] Discharge Planning Assessment Completed byNuno Brady RN, TCC Readmission Within the Last 30 Daysno previous admission in last 30 days Primary Care Physiciannone Adult Information: Lives Withspouse Patient Learning: Factors that Impact Ability to Learnacuteness of illness, communication limitations, literacy(1) Other Factors: Functional Screen: In the recent/past 2-4 weeks, patient or family have noticedno issues that require a rehabilitation consult at this time(2) Discharge Planning: Discharge Plannin01/05/19 1330 TRANSITIONAL SMALLTALK DEVELOPER Attempted to meet with patient this morning however patient not available. For EGD today. Has MMO insurance and lives with spouse. Will follow with sw. Nuno Brady RN, [facility] SOCIAL WORK NOTE: 01/05/19 [address] attempted to meet with the patient to provide ETOH resources, but patient was being taken down for EGD. Family at bedside. Will follow up. JAMES FloresW 01/05/19 SOCIAL WORK NOTE SW met with pt who is alert and oriented x3 own decision maker. Pt tells sw he is waiting for clearance to go home, pt live with and children. SW addressed ETOH issues, pt tells sw he has quit in the past as he cannot take his anxiety/depression meds and drink, so stopped drinking. Then stopped the meds and started drinking. SW advised pt continue follow ups with psychology/psychiatrist for anxiety and depression and start back up with AA meetings. Pt does not feel AA mtgs are helpful but willing to go as he admits he needs to stop for his family. Support provided, pt did not want any other resources. Plan is home with follow up with counseling and AA. Tiffanie Sarmiento DOWEL INSPECTOR, MANAGER HIGHWAY-S CASE MANAGEMENT NOTE: 01/06/2019 1400 INTRODUCED MYSELF TO PATIENT. HE LIVES WITH HIS . HE IS NOT ACTIVE WITH ANY HHC. HE IS INDEPENDENT WITH AMBULATION AND DRIVES. HIS PCP IS DR ARIAS FROM [facility]. HE HAS COVERAGE FOR PRESCRIPTIONS IF NEEDED AND NO QUESTIONS REGARDING MEDICATIONS OR SIDE EFFECTS. VERIFIED ADDRESS, PHONE NUMBERS, CONTACTS AND INSURANCE. HE FEELS THAT HE WILL HAVE THE HELP THAT HE NEEDS. SONIA VILLEGAS RN TCC Final Disposition/Discharge: Disposition/Discharge Information: Discharge/Transfer Information: Discharge/Transfer Date/[id number] 15:50 Discharged Accompanied Byspouse Discharge Modeambulatory Transportation Methodprivate car Final DispositionHome Electronic Signatures: Tana Brady (SWINE NUTRITIONIST) (Signed 05-Jan-2019 13:31) Authored: Discharge Planning Note Trace Escalera (GALE) (Signed 06-Jan-2019 15:54) Authored: Final Disposition/Discharge Sonia Villegas (SWINE NUTRITIONIST) (Signed 06-Jan-2019 14:04) Authored: Discharge Planning Note Tiffanie Sarmiento (JOSE) (Signed 06-Jan-2019 10:51) Authored: Discharge Planning Note Su Heena (JOSE) (Signed 05-Jan-2019 13:42) Authored: Discharge Planning Note Last Updated: 06-Jan-2019 15:54 by Trace Escalera (RN) References: 1. Data Referenced From 5. Education 01/04/2019 9:52 PM 2. Data Referenced From Admission Risk Screen - Adult 01/04/2019 9:52 PM Normal [facility] HGB + HCTon 01-05-2019 Hematocrit Volume Fraction (Bld) 29.8 % Low 41.0 - 52.0 [facility] Comment on above: Performed By: #### H H ####[facility] [place] [id number] Hemoglobin mass conc (Bld) 9.8 g/dL Low 13.5 - 17.5 [facility] Comment on above: Performed By: #### H H ####[facility] [place] [id number] LACTATEon 01-05-2019 Lactate molar conc 1.3 mmol/L Normal 0.4 - 2.0 [facility] Comment on above: Result Comment: Zuleima puncture immediately after or during the administration of Metamizole may lead to falsely low results. Testing should be performed immediately prior to Metamizole dosing. Performed By: #### L ACT ####[facility] [place] [id number] LIPASEon 01-05-2019 Lipase enzyme act/vol 12 U/L Normal 9 - 82 [facility] Comment on above: Result Comment: Zuleima puncture immediately after or during the administration of Metamizole may lead to falsely low results. Testing should be performed immediately prior to Metamizole dosing. Performed By: #### L IPAS ####[facility] [place] [address] MAGNESIUMon 01-05-2019 Magnesium mass conc 1.68 mg/dL Normal 1.60 - 2.40 [facility] Comment on above: Performed By: #### P TINR #### [facility] [address] [place] [address] PHOSPHOROUSon 01-05-2019 Phosphate mass conc 2.5 mg/dL Normal 2.5 - 4.9 [facility] Comment on above: Result Comment: The performance characteristics of phosphorus testing in heparinized plasma have been validated by the individual laboratory site where testing is performed. Testing on heparinized plasma is not approved by the FDA; however, such approval is not necessary. Performed By: #### P TINR #### [facility] [address] [place] [address] Patient Profile - Adult v2on 01-05-2019 Protein mass conc Profile: Initial Info: How to be Addressedjoe Spoken Language PreferredEnglish (1) Are you currently using the Personal Electronic Health Record or RE2no Stated Reason for Admissionhemataemessis. Primary Contact Name and NumberDawarmando Snow Temporary Family Living Arrangements (While Hospitalized)none needed [facility] Was Admitted To in Past 90 Daysnone Employment Statusemployed Current or Previous Servicenone Patient Belongingsnone Medications Brought to Hospitalno History of MDROno General Health: Weight in kg86.1 kilogram(s) Weight in qyf237.8 pound(s) Height in feet5 feet Height in necalp04 inch(es) Height in cm177.8 centimeter(s) BMI (kg/m2)27.235 square meter Weight Methodactual (measured) Scale Typebed Height Methodstated Sleep Aids/Routinenone RSP Based Care: How would you like to participate in your wolf/a What is the number one concern for you during this hospitalizationmaking sure that we thoroughly treat and keep us informed. What is the most important thing we can do to support you during this hospitalizationn/a Is there anything we need to know to best care for viri/a Recent Change in Mood/Behaviorirritability; concentration; decision making judgment Major Change/Loss/Stressor/Fearsde nies Techniques to [place] with Loss/Stress/Changecounseling Hobbiesart/crafts Substance: Current or Former Substance Use never: e-Cigarette/Vaping, Street Drugs YES: Cigarette/Tobacco, Alcohol Tobacco Cessation Education (provide if tobacco use within the last 12 mos) patient declined Other Tobacco Use Commentschews tobacco. Alcohol Use Statuscurrent alcohol Alcohol Xsubwe99 or more drinks Alcohol Frequencydaily Alcohol Typebeer Alcohol Last Usethis morning Alcohol Use Durationpast 4 days. Alcohol Use Additional Commentsonly started drinking 4 days. Health Mgmt: Symptoms/Conditions Managed at Homebehavioral health Behavioral Health Symptoms/Conditionsdepressio n; anxiety Behavioral Health Managementnot managed Behavioral Health Symptoms/Conditions Commentworks when he takes his citalopram however when he stops then he gets very very irritable. Barriers to Managing Healthunderstanding health advice Relationship/Environ: Primary Source of Support/Comfortspouse; friend Lives Withspouse Living Arrangementshouse Significant Exposurenone Resource/Environmental Concernsnone Anticipated Transition Tocrown king Services Anticipated at Transitionrehabilitation services; mental health services; heel caser; community agency Significant IndicatorsComplete Information Review: Allergies, Home Meds and Significant Events have been Reviewed and Verified with Patient/Familyyes ALLERGY, INTOLERANCE, ADVERSE EVENT: Allergies: Dilaudid: Drug, Rash, Active Electronic Signatures: Ortega Bone (GALE) (Signed 04-Jan-2019 22:17) Authored: Profile, Additional Information Last Updated: 04-Jan-2019 22:17 by Ortega Bone (GALE) References: 1. Data Referenced From Triage - ED 01/04/2019 7:21 PM Normal [facility] ABO/RH GROUP TESTon 01-05-20 19 ABO TYPE O Normal [facility] Comment on above: Performed By: #### V ERAB #### [place] [address] RH TYPE Positive Normal [facility] Comment on above: Performed By: #### V ERAB #### [address] [address] APTTon 01-04-2019 aPTT Coag time (Bld) 33 s Normal 28 - 38 [facility] Comment on above: Result Comment: THE APTT IS NO LONGER USED FOR MONITORING UNFRACTIONATED HEPARIN THERAPY. FOR MONITORING HEPARIN THERAPY, USE THE HEPARIN ASSAY. Performed By: #### A PTT #### [place] [id number] Admission Risk Screen - Adul ton 01-04-2019 Admission Risk Screen - Adult Allergies: Allergies: Dilaudid: Rash Patient Verification: New W ID Band Applied in my Departmentyes Patient Identity Verified Bypatient; family ID Band FULL Name, include Middle, spelling matches patient's ID used for verificationyes ID Band Matches Patient ID used for Verficationyes ID Band MRN Matches EMR MRNyes Advance Directive: Advance Directive Medicalno Advance Directive Information Givenpatient/family declined Falls Screen: Type of Assessmentadmission Moderate Risk Factorsnursing judgment (specify) Risk for Injury Associated with Fallcoagulation blood thinners (Coumadin, heparin gtt), coagulopathy Fall Risk Conclusionmoderate falls risk with low risk for associated injury [place] Safety InterventionsWDL *orient to call system *instruct to call for assistance before getting out of bed *non-slip footwear when patient is out of bed *call lewis in reach *personal items and telephone in reach *physically safe environment (no spills or clutter) *bed in lowest position with wheels locked *appropriate side rails in place *room/bathroom lighting operational, light cord in reach *appropriate signage on door Family Violence Screen: Are you or have you been threatened or abused physically, emotionally, or sexually by anyoneno Has anyone ever threatened to hurt your family or your petsno Does anyone try to keep you from having/contacting other friends or doing things outside your homeno Do you feel UNSAFE going back to the place where you are livingno Do you feel anyone has exploited or taken advantage of you financially or of your personal propertyno Clinical assessment: Are there any apparent signs of injuries/behaviors that could be related to abuse/neglectno Social Service Consult for abuse/neglect needed this visitno Functional screen: Functional Screen: In the recent/past 2-4 weeks, patient or family have noticedno issues that require a rehabilitation consult at this time Learning Assessment (Patient): Patient is Able to be Assessed for Learningyes Factors Influencing Readiness to Learnacuteness of illness; anxiety; interest in learning; motivation to learn Factors that Impact Ability to Learnacuteness of illness, communication limitations, literacy Devices/Methods Used to Communicatenone Learning Preferencesn/a Cultural Considerationsnone Developmental Considerationsnone Lutheran Considerationsnone Learning Assessment (Other Learner): Other learner availableno Suicide/Depression Screen: During the past month, have you often been bothered by feeling down, depressed or hopelessyes During the past month, have you often had little interest or pleasure in doing thingsno Have you had any thoughts of harming yourselfno Have you had any thoughts of harming anyone elseno Adult Nutrition Screen: Have you recently lost weight without tryingno Have you been eating poorly because of a decreased appetiteno Malnutrition Screening Tool Score0 Malnutrition Screening Tool RiskMST = 0 or 1 Not at risk. Eating well with little or no weight loss Nutrition Consult needed this visitno Can Patient Participate in Room Serviceyes, with assistance Patient requires Paper Dishes/Plastic Utensilsno Pain Screen: Pain Scalenumerical 0-10 Pain Scale Educationteaching provided Current Pain Level0 = None Acceptable Pain Level0 = None Expression of Pain (nonverbal)none Barriers to Reporting Painnone Chronic Painno Spiritual Screen: Are there any cultural, spiritual, mormon practices/values/needs that are important for us to knowno Do you want a visit/item from Pastoral Careno Would you like your Blind Teacher/Guide Visitor notifiedno CAGE: Is this an injured patient at a Trauma Center ([facility] [place] [place]/[facility] [place]): no Vaccinations: Vaccination - Influenza Vaccination Screen: Is it flu season (between and December 02)No Vaccination - Pneumonia Vaccination Screen: Patient has received a previous pneumonia vaccine:no/unknown... Immunocompetent persons with underlying chronic conditions or reside in longwall shearer operator care facilitiesnone of these conditions Persons with Functional or Anatomic Asplenianone of these conditions Immunocompromised Personsnone of these conditions Pneumonia vaccine NOT indicated due to:patient DOES NOT have a condition that indicates vaccination Richard: Skin - Richard Scale: Richard: Sensory Perception (response to environment)(4) no impairment Richard: Moisture (degree skin exposed to moisture)(4) rarely moist Richard: Activity (ability to walk)(4) walks frequently Richard: Mobility (amount/control of body movement)(4) no limitation Richard: Nutrition (quality of food intake)(4) excellent Richard: Friction and Shear(3) no apparent problem Richard: Score23 Significant Indicatiors: Significant Indicators: Complete Pressure Injury: Pressure Injury Present on Admissionno Electronic Signatures: Ortega Bone (GALE) (Signed 04-Jan-2019 22:09) Authored: Admission Risk Screens, Vaccinations, Richard, Pressure Injury Last Updated: 04-Jan-2019 22:09 by Ortega Bone (GALE) Normal [facility] BASIC METABOLIC PANELon 06-0 Anion gap molar conc 17 mmol/L Normal 10 - 20 [facility] Comment on above: Performed By: #### B MP #### [address] [address] Calcium mass conc 9.1 mg/dL Normal 8.6 - 10.3 [facility] Comment on above: Performed By: #### B MP #### [address] [address] Chloride molar conc 101 mmol/L Normal 98 - 107 [facility] Comment on above: Performed By: #### B MP #### [address] [address] Creatinine mass conc 0.92 mg/dL Normal 0.50 - 1.30 [facility] Comment on above: Performed By: #### B MP #### [address] [address] GFR- AM. >60 Normal >60 [facility] Comment on above: Result Comment: CALC ULATIONS OF ESTIMATED GFR ARE PERFORMED USING THE MDRD STUDY EQUATION FOR THE IDMS-TRACEABLE CREATININE METHODS. CLIN CHEM 2007;53:766-72 Performed By: #### B MP #### [address] [address] GFR-NON AM. >60 Normal >60 [facility] Comment on above: Performed By: #### B MP #### [address] [address] Glucose mass conc 144 mg/dL High 74 - 99 [facility] Comment on above: Performed By: #### B MP #### [address] [address] HCO3 molar conc (Bld) 25 mmol/L Normal 21 - 32 [facility] Comment on above: Performed By: #### B MP #### [address] [address] Potassium molar conc 4.0 mmol/L Normal 3.5 - 5.3 [facility] Comment on above: Performed By: #### B MP #### [address] [address] Sodium molar conc 139 mmol/L Normal 136 - 145 [facility] Comment on above: Performed By: #### B MP #### [facility] [address] [place] [address], [place] [address] Urea nitrogen mass conc 29 mg/dL High 6 - 23 [facility] Comment on above: Performed By: #### B MP #### [address] [place] [address] CBC AND DIFFERENTIALon 01-04 % AUTOMATED IMMATURE GRAN 0.5 % Normal 0.0 - 0.9 [facility] Comment on above: Result Comment: Perc ent differential counts (%) should be interpreted in the context of the absolute cell counts (cells/L). Performed By: #### C BCDF #### [address] [place] [address] % NEUTROPHIL 72.9 % Normal 40.0 - 80.0 [facility] Comment on above: Performed By: #### C BCDF #### [address] [place] [address] Basophils/100 WBC (Bld) 0.4 % Normal 0.0 - 2.0 [facility] Comment on above: Performed By: #### C BCDF #### [address] [place] [address] Basophils/100 WBC (Bld) 0.04 x10E9/L Normal 0.00 - 0.10 [facility] Comment on above: Performed By: #### C BCDF #### [address] [place] [address] Eosinophils #/vol (Bld) 0.10 10*3/uL Normal 0.00 - 0.70 [facility] Comment on above: Performed By: #### C BCDF #### [address] [place] [address] Eosinophils/100 WBC (Bld) 0.9 % Normal 0.0 - 6.0 [facility] Comment on above: Performed By: #### C BCDF #### [address] [place] [address] Erythrocyte distribution width Ratio (RBC) 19.0 % High 11.5 - 14.5 [facility] Comment on above: Performed By: #### C BCDF #### [address] [address] Hematocrit Volume Fraction (Bld) 37.0 % Low 41.0 - 52.0 [facility] Comment on above: Performed By: #### C BCDF #### [address] [address] Hemoglobin mass conc (Bld) 12.3 g/dL Low 13.5 - 17.5 [facility] Comment on above: Performed By: #### C BCDF #### [address] [address] Lymphocytes #/vol (Bld) 2.15 10*3/uL Normal 1.20 - 4.80 [facility] Comment on above: Performed By: #### C BCDF #### [address] [address] Lymphocytes/100 WBC (Bld) 19.1 % Normal 13.0 - 44.0 [facility] Comment on above: Performed By: #### C BCDF #### [address] [address] MCHC mass conc (RBC) 33.2 g/dL Normal 32.0 - 36.0 [facility] Comment on above: Performed By: #### C BCDF #### [address] [address] MCV Entitic volume (RBC) 86 fL Normal 80 - 100 [facility] Comment on above: Performed By: #### C BCDF #### [address] [address] Monocytes #/vol (Bld) 0.70 10*3/uL Normal 0.10 - 1.00 [facility] Comment on above: Performed By: #### C BCDF #### [address] [address] Monocytes/100 WBC (Bld) 6.2 % Normal 2.0 - 10.0 [facility] Comment on above: Performed By: #### C BCDF #### [address] [address] Neutrophils #/vol (Bld) 8.18 10*3/uL High 1.20 - 7.70 [facility] Comment on above: Performed By: #### C BCDF #### [address] [address] Nucleated RBC/100 WBC Ratio (Bld) 0.0 /100 WBC Normal 0.0 - 0.0 [facility] Comment on above: Performed By: #### C BCDF #### [address] [address] Platelets #/vol (Bld) 89 10*3/uL Low 150 - 450 [facility] Comment on above: Performed By: #### C BCDF #### [address] [address] RBC #/vol (Bld) 4.30 x10E12/L Low 4.50 - 5.90 [facility] Comment on above: Performed By: #### C BCDF #### [address] [address] WBC #/vol (Bld) 11.2 10*3/uL Normal 4.4 - 11.3 [facility] Comment on above: Performed By: #### C BCDF #### [address] [address] HEPATIC FUNCTION PANELon Albumin mass conc 3.9 g/dL Normal 3.4 - 5.0 [facility] Comment on above: Performed By: #### H EPFP #### [address] [address] ALP enzyme act/vol 97 U/L Normal 33 - 120 [facility] Comment on above: Performed By: #### H EPFP #### [address] [address] ALT enzyme act/vol 31 U/L Normal 10 - 52 [facility] Comment on above: Result Comment: Layla ents treated with Sulfasalazine may generate falsely decreased results for ALT. Performed By: #### H EPFP #### [address] [address] AST enzyme act/vol 39 U/L Normal 9 - 39 [facility] Comment on above: Performed By: #### H EPFP #### [facility] [address] [place] [address] Bilirubin mass conc 1.2 mg/dL Normal 0.0 - 1.2 [facility] Comment on above: Performed By: #### H EPFP #### [facility] [address] [place] [address] Bilirubin.direct mass conc 0.3 mg/dL Normal 0.0 - 0.3 [facility] Comment on above: Performed By: #### H EPFP #### [facility] [address] [place] [address], [place] [address] Protein mass conc 7.1 g/dL Normal 6.4 - 8.2 [facility] Comment on above: Performed By: #### H EPFP #### [address] [address] History and Physicalon 01-04 History and Physical Allergies: Dilaudid: Rash Medications Prior to Admission: Admission Medication Reconciliation has not been completed for this patient. Objective: Objective Information: T PRBPSpO2 [id number]% Date/Time01/04 19: 19: 19: 19: 19:21 Range(37.1C - 37.1C ) (121 - 121 ) (20 - 20 ) (155 - 155 )/ (83 - 83 ) (100% - 100% ) Highest temp of 37.1 C was recorded at 01/04 19:21 Recent Lab Results: Results: CBC: 01/04/2019 19:26 \ Hgb / \ 12.3 L / WBC Plt 11.2 89 L / Hct \ / 37.0 L \ RBC: 4.30 L MCV: 86 Neutrophil %: 72.9 BMP: 01/04/2019 19:26 NA+ Cl- BUN / 139 101 29 H / ---- Glucose 144 H K+ HCO3- Creat \ 4.0 25 0.92 \ Calcium : 9.1 Anion Gap : 17 Coagulation: 01/04/2019 19:26 PT / 16.0 H / -------< INR < 1.4 H PTT\ 33 \ Assessment and Plan: Assessment: ICU STAFF PHYSICIAN NOTE OF PERSONAL INVOLVEMENT IN CARE As the attending physician, I certify that I personally reviewed the patient's history and personally examined the patient to confirm the physical findings described above, and that I reviewed the relevant imaging studies and available reports. I also discussed the differential diagnosis and all of the proposed management plans with the patient and individuals accompanying the patient to this visit. They had the opportunity to ask questions about the proposed management plans and to have those questions answered. This patient has a high probability of sudden, clinically significant deterioration, which requires the highest level of physician preparedness to intervene urgently. I managed/supervised life or organ supporting interventions that required frequent physician assessment. I devoted my full attention to the direct care of this patient for the amount of time indicated below. Time I spent with family or surrogate(s) is included only if the patient was incapable of providing the necessary information or participating in medical decision- making. Time devoted to teaching and to any procedures I billed separately is not included. Critical Care Time: 35 minutes Interval History: Patient is a 48-year-ol man with prior gastric ulcers, Cholelithiases alcoholic cirrhosis Alcohol abuse and colonic polyp who presents to [facility] with hematemesis He had one episode at home and one in the ED. Patient use to drink heavily for over 30 years, has been sober for over a year but started drinking again three days ago. he denies repetitive vomiting and melena. No fever, chills or abdominal pain Recent colonoscopy showed one polyp that was removed. Recent EGD did show varices Allergies Dilaudid Social hx : Used to be a heavy drinker, was sober for over a year and stated drinking three days ago. Former nicotine use PMH: As above PSH: As above Review of Systems: General: [denies weight gain, denies loss of appetite, fever, chills, night sweats.] HEENT: [denies headaches, dizziness, head trauma, visual changes, eye pain, tinnitus, nosebleeds, hoarseness or throat pain] Respiratory: [denies chest pain, dyspnea, cough and hemoptysis] Cardiovascular: [denies orthopnea, paroxysmal nocturnal dyspnea, and legs swelling] Gastrointestinal: [denies pain, nausea vomiting, diarrhea, constipation, melena or bleeding.] Genitourinary: [denies hematuria, frequency, urgency or dysuria] Neurology: [denies syncope, seizures, paralysis, paraesthesia] Endocrine: [denies polyuria, polydipsia, skin or hair changes, and heat or cold intolerance] Musculoskeletal: [denies joint pain, swelling, arthritis or myalgia] Hematologic: [denies bleeding, adenopathy and easy bruising] Skin: [denies rashes and skin discoloration] Psychiatry: [denies depression] Input/Output: Reviewed Oxygen requirements: Reviewed Ventilator Information: Reviewed Clinical Examination: General appearance: not in pain or distress, in no respiratory distress HEENT: [Atraumatic/normocephalic, EOMI, HERMES, pharynx clear, moist mucosa, redness of the uvula appreciated] Neck: Supple, no jugular venous distension, lymphadenopathy, thyromegaly or carotid bruits Chest: Decreased breath sounds, no wheezing, +ve crackles and no tenderness over ribs Cardiovascular: Normal S1 , S2, regular rate and rhythm, no murmur, rub or gallop Abdomen: Normal sounds present, soft, lax with no tenderness, no hepatosplenomegaly, and no masses Extremities: No edema. Pulses are equally present. Skin: intact, no rashes Neurologic: Alert and oriented x 3, No focal deficit Investigations: Labs, radiological imaging and cardiac work up were reviewed Assessment & Plan:[] 1- Alcohol dependence 2- Upper GI bleeding ( variceal bleed verus Petra-Campuzano tear) 3- Acute post hemorrhagic mild anemia 4- Watch for alcohol withdrawal 5- nausea and vomiting Plan: 1- IV PPI and Octreotide 2- NPO except for ice chips 3- IVF 4- GI consult 5- CXR and UA with urine tox 6- Thiamine and folic acid 7- GI consult 8- SCD 9- NPO after midnight 10- Patient was counselled about alcohol and drinking Signatures/Attestation/Certi fication: Note Completion: LIZET StatementI am solely responsible for all documentation captured within this clinical document, including critical care time, if applicable. The attending physician signature below is only for admission certification purposes. ADM Certification: Attending Provider Inpatient Certification StatementI certify this patients need for inpatient care based on the above documentation including; the order to admit as inpatient, the anticipated length of stay, diagnosis, problem list and plan of care, and discharge plan. Electronic Signatures: Vicki Peña) (Signed 04-Jan-2019 22:03) Authored: Comorbidities, Allergies, Medications Prior to Admission, Objective, Assessment and Plan, Signatures/Attestation/Certi fication Last Updated: 04-Jan-2019 22:03 by Vicki Peña) Normal [facility] LACTATEon 01-04-2019 Lactate molar conc 3.5 mmol/L High 0.4 - 2.0 [facility] Comment on above: Result Comment: Zuleima puncture immediately after or during the administration of Metamizole may lead to falsely low results. Testing should be performed immediately prior to Metamizole dosing. Performed By: #### L ACT #### [address] [address] LIPASEon 01-04-2019 Lipase enzyme act/vol 22 U/L Normal 9 - 82 [facility] Comment on above: Result Comment: Zuleima puncture immediately after or during the administration of Metamizole may lead to falsely low results. Testing should be performed immediately prior to Metamizole dosing. Z-qblpoz-s-benzoquinone imine (metabolite of Acetaminophen) will generate erroneously low results in samples for patients that have taken toxic doses of acetaminophen. Performed By: #### L IPAS #### [address] [address] PT/INRon 01-04-2019 INR Coag RelTime (PPP) 1.4 {INR} High 0.9 - 1.1 [facility] Comment on above: Performed By: #### P TINR #### [address] [address] Prothrombin time (PT) Coag time (PPP) 16.0 s High 9.7 - 12.7 [facility] Comment on above: Performed By: #### P TINR #### [address] [address] Provider Note - ED v2on 06-0 Protein mass conc Provider Note - ED v 2: Chart Review: ED NOTES ED NOTES: CC: Blood in vomit HPI: Patient is a 3o y/o male with PMhx of gastric ulcers and Cirrhosis of the liver, presenting to the ED via EMS with complaints of blood in vomit. Patient admits to feeling nauseous before vomiting liquid with blood. He denies any clots in the vomit. Patient also admits to some lightheadedness after vomiting, exacerbated by movement, as well as some left mid abdominal pain. He reports that he felt fine prior to the onset of his nausea. Patient notes that his friend's called 911 after he vomited. He denies any blood in his stool recently as well as denies taking any blood thinners. Patient does note that he had a recent colonoscopy which showed 1 polyp which was removed. Per , the patient has a history of EtOH abuse, and has been sober for some time before starting to drink several days ago. She also states that he had an endoscopy which showed varices of the esophagus. No banding required at time of EGD. PMH/ PSH/ SocialHx/ FamHx reviewed in summary screen on EMR ROS: negative except as noted in HPI PHYSICAL EXAM Appearance: Alert and oriented, cooperative, in no acute distress. Well appearing. Eyes: EOMs intact, pupils equal, conjunctiva pink with no redness or exudate. ENT: Mucus membranes moist. Pharynx clear. Uvula midline. No blood in the oropharynx. Neck: Supple, without meningismus. No lymphadenopathy. Pulmonary: Clear bilaterally. No accessory muscle use or stridor. No respiratory distress. Symmetric chest rise. Cardiac: Tachycardic with regular rhythm, no murmurs noted Abdomen: Soft, nontender. No rebound or guarding. No peritoneal signs. Musculoskeletal: Nontender, full ROM, 2+ pulses, no edema noted Neurological: Moves all 4 extremities spontaneously, no sensory deficits, CN grossly intact Skin: No rash. No diaphoresis. Psychiatric: Appropriate mood and affect. ED Course: [01/04/2019, 19:20] Patient seen in the ED and evaluated for abdominal pain and bloody vomit. He will receive abdominal lab work including lipase and lactate. Patient to be given Zofran for nausea as well as Protonix and IV fluids. Lactate was elevated at 3.5. Will continue with IV fluids. CBC showed hemoglobin mildly depressed at 12.3, and platelets depressed at 89. Patient has had 2 episodes of large bloody vomit in the ED. Anticipate admission. [20:02] I spoke with Dr. Morales, hospitalist, to coordinate patient admission. He advised that the patient be admitted to the ICU for close monitoring. [20:10] I spoke with Dr. Peña who accepted the patient for ICU admission with a diagnosis of upper GI bleed, thrombocytopenia, and varices of the esophagus. He agreed with plan to start the patient on octreotide and cross match him for 2 units of blood. Patient and family understand and are agreeable with the plan for ICU admission. Stable at time of transfer in fair condition. HISTORY OF PRESENTING ILLNESS GALINDO is a 48 year old Male and was seen by me at 04-Jan-2019 19:19 for a chief complaint of bloody vomitus . Triage Information: Most recent Vital Sign Value Date Temp (F): 98.7 01-04-2019 19:21 Temp (C): 37.1 01-04-2019 19:21 Heart Rate (beats/min): 121 01-04-2019 19:21 Respirations (breaths/min): 20 01-04-2019 19:21 SpO2 (%): 100 01-04-2019 19:21 BP Systolic (mm Hg): 155 01-04-2019 19:21 BP Diastolic (mm Hg): 83 01-04-2019 19:21 PAST MEDICAL HISTORY ATTESTATION: I have reviewed and confirmed nurse's/medic's notes for patient's medications, allergies, medical history, and surgical history ALLERGIES/INTOLERANCES: Allergy Allergen: Dilaudid Type: Drug Reaction: Rash HEALTH HISTORY: No documented data. OUTPATIENT MEDICATIONS: Home Medications Review Status for Reconciliation: Complete Med Status: Patient Currently Takes Medications Drug Name: PriLOSEC 20 mg oral delayed release capsule Instructions: 1 cap(s) orally once a day Drug Name: Flonase 50 mcg/inh nasal spray Instructions: 1 spray(s) nasal once a day Drug Name: CeleXA 20 mg oral tablet Instructions: 1 tab(s) orally once a day SIGNIFICANT EVENTS: Past Medical History Description:ulcers Description:Fatty Liver Description:cirrhosis Description:SILVIO RESULTS/VITAL SIGNS RESULTS: Recent Lab Results: I have reviewed these laboratory results: Hepatic Function Panel 04-Jan-2019 19:26:00 ResultValue Aspartate Transaminase, Serum 39 ALB 3.9 T Bili 1.2 Bilirubin, Serum Direct - Conjugated 0.3 ALKP 97 Alanine Aminotransferase, Serum 31 T Pro 7.1 Complete Blood Count + Differential 04-Jan-2019 19:26:00 ResultValue White Blood Cell Count 11.2 Nucleated Erythrocyte Count 0.0 Red Blood Cell Count 4.30 L HGB 12.3 L HCT 37.0 L MCV 86 MCHC 33.2 PLT 89 L RDW-CV 19.0 H Neutrophil % 72.9 Immature Granulocytes % 0.5 Lymphocyte % 19.1 Monocyte % 6.2 Eosinophil % 0.9 Basophil % 0.4 Neutrophil Count 8.18 H Lymphocyte Count 2.15 Monocyte Count 0.70 Eosinophil Count 0.10 Basophil Count 0.04 Basic Metabolic Panel 04-Jan-2019 19:26:00 ResultValue Glucose, Serum 144 H NA 139 K 4.0 CL 101 Bicarbonate, Serum 25 Anion Gap, Serum 17 BUN 29 H CREAT 0.92 GFR-Non >60 GFR- >60 Calcium, Serum 9.1 PT + INR, Plasma 04-Jan-2019 19:26:00 ResultValue Prothrombin Time, Plasma 16.0 H International Normalized Ratio, Plasma 1.4 H Lactate, Level 04-Jan-2019 19:26:00 ResultValue Lactate, Level 3.5 H Lipase, Serum 04-Jan-2019 19:26:00 ResultValue Lipase, Serum 22 Activated Partial Thromboplastin Time 04-Jan-2019 19:26:00 ResultValue Activated Partial Thromboplastin Time 33 VITAL SIGNS: T PRBP SpO2O2(LPM) %FiO2 Method 04-Jan-2019 19:21:[id number]/83 100 room air, no respiratory support CLINICAL IMPRESSION Diagnosis/Annotation: ED Dx Name:Upper GI bleed Code:K92.2 Name:Thrombocytopenia Code:D69.6 Name:Varices of esophagus determined by endoscopy Code:I85.00 Dispostion: hospitalized Admit to: Telemetry. Admitting Considerations: Condition on Disposition: fair ATTESTATION Scribe Name: Joaquin Smith Scribing on Behalf of: Jaya Sky MD ATTENDING SCRIBE ATTESTATION STATEMENT I, Jaya Sky MD, attests all medical record entries made by the scribe were under my direction and personally dictated by me. I have reviewed the chart and agree that the record accurately reflects my performance of the history, physical, and assessment plan. I have also personally directed, reviewed, and agree with disposition instructions. Comments/Additional Findings: Scribed by Joaquin Smith This note is prepared by the scribe acting as Scribe for Dr Jaya Sky. All medical record entries made by the Scribe were at my direction and personally dictated by me. I have reviewed the chart and agree that the record accurately reflects my personal performance of the history, physical exam, assessment, plan, and diagnosis. I have also personally directed, reviewed, and agree with the plan for disposition. Jaya Sky MD CRITICAL CARE TIME Is this a critically ill patient: yes Billing Provider Critical Care Time (mins): 35 Primary Critical Care Issue/Treatment (See MDM/ED Course/Tx Plan for greater detail): -- This patient is believed to have, or have the potential for, a life-threatening gastrointestinal hemorrhage. We are treating with appropriate blood products, fluids and/or pressors, as indicated, as well as intensive monitoring. Please see MDM/ED Course/Treatment Plan for greater detail. Additional Critical Care Provided: direct patient care (not related to procedure), additional history taking, interpretation of diagnostic studies, documentation, consultation with other physicians and consult w/ pt's family directly relating to pts condition Electronic Signatures: Jaya Sky) (Signed 04-Jan-2019 23:25) Authored: Provider Note - ED v2 Joaquin Smith (Scribe) (Entered 04-Jan-2019 19:33) Entered: Provider Note - ED v2 Last Updated: 04-Jan-2019 23:25 by Jaya Sky) References: 1. Data Referenced From Triage - ED 01/04/2019 07:21 PM Normal [facility] REQUEST-LEUKOREDUCED RED LEE LSon 01-04-2019 REQUEST-LEUKOREDUC ED RED CELLS RBC READY FOR PICKUP Normal [facility] Comment on above: Performed By: #### O SENIOR PROJECT CONTROLS SPECIALIST ####[facility] [place] [address] TYPE + SCREENon 01-04-2019 ABO TYPE O Normal [facility] Comment on above: Performed By: #### T +S #### [facility] [address] [place] [address] RH TYPE Positive Normal [facility] Comment on above: Performed By: #### T +S #### [facility] [address] [place] [address] Triage - EDon 01-04-2019 Triage - ED Quick Triage: The patient and/or guardian verbally acknowledges placement for services into the following (when Urgent Care Service hours are operating):emergency department Chart Review: CHIEF COMPLAINT GALINDO SNOW is a Male patient with a chief complaint of bloody vomitus (PATIENT IS A 48 Y/O MALE BROUGHT IN BY EMS WITH COMPLAINT OF MULTIPLE EPISODES OF BLOODY EMESIS. PATIENT WITH PRIOR HISTORY OF LIVER DISEASE, AND ESOPHAGEAL VARICES. PATIENT STATES THAT PATIENT HAS NOT DRANK FOR APPRO 1 YEAR UNTIL THIS PAST SATURDAY. PATIENT STATES HE HAS BEEN DRINKING HEAVILY SINCE SATURDAY. PATIENT AXOX4, ABC INTACT, COMPLAINS OF LLQ ABD PAIN AT THIS TIME WELL NAUSEA. EMS ESTABLISHE IV ACCESS PRIOR TO ARRIVAL AND ADMINISTERED 4 MG IVP ZOFRAN PRIOR TO ARRIVAL.). Onset of the Complaint: 04-Jan-2019 Triage Date/Time: 04-Jan-2019 19:21 Vital Signs: Temperature: 98.7F ( 37.1C) taken forehead Blood Pressure: 155/83 Mean: Heart Rate: 121 Respiratory Rate: 20 Pulse Oximetry: 100% on room air, no respiratory support. Weight: pounds. Calculated kg. (stated) Cough lasting greater than 3 weeks: no Patient immunocompromised related to: N/A Travel outside of [place]: no Allergies: yes Patient has homicidal thoughts: no MERYL: 3 Symptoms Are POSITIVE For: nausea and vomiting. Symptoms Are Negative For: anorexia, constipation, diaphoresis, diarrhea, distention, fever and rectal blood. Last Emesis: 04-Jan-2019 Sarita Suicide Suicide Risk Screen In the Past Month: Have you wished you were or wished you could go to sleep and not wake up no In the Past Month: Have you had any actual thoughts of killing yourself no In Your Lifetime: Have you ever done anything, started to do anything, or prepared to do anything to end your life no PAIN Pain Scale Used: TIFFANIE ARRIVAL INFORMATION Means of Arrival: stretcher Mode of Arrival: ambulance Unit: 2 Agency: [facility] Arrival From: home Accompanied By: cardiology manager Language: Spoken Language Preferred: Tajik Reading Language Preferred: Tajik Emergency Room Clerk Requested: no grocery carrier was requested MDRO: History of MDRO: no Present on Arrival: Device Present on Arrival to ED: yes Vascular Access Device: yes Type: peripheral IV Urine Device: none Pressure Ulcer Present on Arrival to ED: no Peripheral IV WDL: WDL Peripheral IV Insertion Date: 04-Jan-2019 Peripheral IV Present on Admission: present on admission Peripheral IV Location: left antecubital Peripheral IV Site Maintenance: transparent semipermeable dressing Peripheral IV Patency: blood return, able to obtain and flushed without difficulty TREATMENT PRIOR TO ARRIVAL Treatment Prior to Arrival: Prior to arrival in the Emergency Department GALINDO SNOW had treatment conducted by EMS which included the following; medications, saline lock and see ambulance record. EMS REPORTED VITAL SIGNS Blood Pressure: 170/90 Mean: Heart Rate: 114 Respiratory Rate: 18 Pulse Oximetry: 97% Medications Administrated: 4mg zofran given prior to arrival. PRIMARY ASSESSMENT GALINDO SNOW's primary assessment is Within Normal Limits. The airway is open and patent. Breathing spontaneous and unlabored with clear breath sounds bilaterally. Circulation is normal with good peripheral pulses. Skin is warm and dry and color is normal for race. PAST MEDICAL HISTORY Immunization History: Last Known Tetanus Immunization: Unknown TRAVEL HISTORY Travel Exposure History: NO travel to International locations in the past 30 days Past Medical History: Past Medical History Reviewedyes SILVIO: Past Medical History, Active cirrhosis: Past Medical History, Active Fatty Liver: Past Medical History, Active ulcers: Past Medical History, Active Electronic Signatures: Jordin Cho (GALE) (Signed 04-Jan-2019 21:10) Authored: Triage, Past Medical History Last Updated: 04-Jan-2019 21:10 by Jordin Cho (GALE) Normal [facility] Vital Signs Date Time Vital Sign Value Performing Clinician Facility 08-04-2023 12:02-0500 Diastolic blood pressure 63 mm[Hg] Rogelio Madera DO Work Phone: [facility] 08-04-2023 12:02-0500 Heart rate 56 /min Rogelio Madera DO Work Phone: [facility] 08-04-2023 12:02-0500 Respiratory rate 20 /min Rogelio Lara-Uberti DO Work Phone: [facility] [employer] 08-04-2023 12:02-0500 SaO2% (BldA) [Mass fraction] 100 % Rogelio Lara-Uberti DO Work Phone: [facility] [employer] 08-04-2023 12:02-0500 Systolic blood pressure 101 mm[Hg] Rogelio Lara-Uberti DO Work Phone: [facility] 08-04-2023 09:08-0500 Body height 177.8 cm Rogelio Lara-Padmajaerti DO Work Phone: [facility] 08-04-2023 09:08-0500 Body mass index (BMI) [Ratio] 24.39 kg/m2 Rogelio Lara-Uberti DO Work Phone: [facility] 08-04-2023 09:08-0500 Body temperature 97.59 [degF] Rogelio Lara-Uberti DO Work Phone: [facility] 08-04-2023 09:08-0500 Body weight 77.11 kg Rogelio Lara-Uberti DO Work Phone: [facility] 04-16-2023 08:53-0400 Body weight 77.61 kg Terese Jack MD Work Phone: [facility] 04-16-2023 08:53-0400 Diastolic blood pressure 75 mm[Hg] Terese Jack MD Work Phone: [facility] 04-16-2023 08:53-0400 Heart rate 67 /min Terese Jack MD Work Phone: [facility] 04-16-2023 08:53-0400 Respiratory rate 18 /min Terese Jack MD Work Phone: [facility] 04-16-2023 08:53-0400 Systolic blood pressure 136 mm[Hg] Terese Jack MD Work Phone: [facility] 10-08-2022 16:34-0500 Body temperature 98.29 [degF] Terese Jack MD Work Phone: [facility] 10-08-2022 16:34-0500 Body weight 90.77 kg Terese Jack MD Work Phone: [facility] 10-08-2022 16:34-0500 Diastolic blood pressure 63 mm[Hg] Terese Jack MD Work Phone: [facility] 10-08-2022 16:34-0500 Heart rate 73 /min Terese Jack MD Work Phone: [facility] 10-08-2022 16:34-0500 Respiratory rate 18 /min Terese Jack MD Work Phone: [facility] 10-08-2022 16:34-0500 Systolic blood pressure 165 mm[Hg] Terese Jack MD Work Phone: [facility] 08-10-2022 09:25-0500 Body temperature 98.1 [degF] Terese Jack MD Work Phone: [facility] 08-10-2022 09:25-0500 Body weight 94.8 kg Terese Jack MD Work Phone: [facility] 08-10-2022 09:25-0500 Diastolic blood pressure 75 mm[Hg] Terese Jack MD Work Phone: [facility] 08-10-2022 09:25-0500 Heart rate 81 /min Terese Jack MD Work Phone: [facility] 08-10-2022 09:25-0500 Respiratory rate 16 /min Terese Jack MD Work Phone: [facility] 08-10-2022 09:25-0500 Systolic blood pressure 154 mm[Hg] Terese Jack MD Work Phone: [facility] 06-25-2022 19:19-0500 Body temperature 98.4 [degF] Terese Jack MD Work Phone: [facility] 06-25-2022 19:19-0500 Body weight 97.52 kg Terese Jack MD Work Phone: [facility] 06-25-2022 19:19-0500 Diastolic blood pressure 67 mm[Hg] Terese Jack MD Work Phone: [facility] 06-25-2022 19:19-0500 Heart rate 88 /min Terese Jack MD Work Phone: [facility] 06-25-2022 19:19-0500 Respiratory rate 16 /min Terese Jack MD Work Phone: [facility] 06-25-2022 19:19-0500 Systolic blood pressure 163 mm[Hg] Terese Jack MD Work Phone: [facility] 05-08-2022 13:17-0400 Diastolic blood pressure 76 mm[Hg] Nelly Perez MD Work Phone: [facility] 05-08-2022 13:17-0400 Heart rate 71 /min Nelly Perez MD Work Phone: [facility] 05-08-2022 13:17-0400 SaO2% (BldA) [Mass fraction] 99 % Nelly Perez MD Work Phone: [facility] 05-08-2022 13:17-0400 Systolic blood pressure 126 mm[Hg] Nelly Perez MD Work Phone: [facility] 05-08-2022 13:00-0400 Body temperature 97 [degF] Nelly Perez MD Work Phone: [facility] 05-08-2022 11:41-0400 Respiratory rate 18 /min Nelly Perez MD Work Phone: [facility] 04-17-2022 15:46-0400 Diastolic blood pressure 50 mm[Hg] Terese Jack MD Work Phone: [facility] 04-17-2022 15:46-0400 Systolic blood pressure 150 mm[Hg] Terese Jack MD Work Phone: [facility] 04-17-2022 14:56-0400 Body temperature 98.29 [degF] Terese Jack MD Work Phone: [facility] 04-17-2022 14:56-0400 Body weight 93.17 kg Terese Jack MD Work Phone: [facility] 04-17-2022 14:56-0400 Heart rate 75 /min Terese Jack MD Work Phone: [facility] 04-17-2022 14:56-0400 Respiratory rate 16 /min Terese Jack MD Work Phone: [facility] 03-14-2022 12:38-0400 Body weight 95.71 kg Juliocesar Barry PA-C Work Phone: [facility] 03-14-2022 12:38-0400 Diastolic blood pressure 71 mm[Hg] Juliocesar Williams PA-C Work Phone: [facility] 03-14-2022 12:38-0400 Heart rate 70 /min Juliocesar Williams PA-C Work Phone: [facility] 03-14-2022 12:38-0400 Systolic blood pressure 168 mm[Hg] Juliocesar Williams PA-C Work Phone: [facility] 11-27-2021 08:25-0400 Body weight 93.85 kg Leonel Erie PA-C Work Phone: [facility] 11-27-2021 08:25-0400 Diastolic blood pressure 62 mm[Hg] Leonel Deniz PA-C Work Phone: [facility] 11-27-2021 08:25-0400 Systolic blood pressure 140 mm[Hg] Leonel Deniz PA-C Work Phone: [facility] Encounters Encounter Date Encounter Type Care Provider Facility Start: 03-06-2024 End: 03-07-2024 Emergency department patient visit LUKEAILYN HALLNADEGER Facility:[facility] Start: 03-05-2024 End: 03-06-2024 [facility] Start: 02-21-2024 End: 02-22-2024 ambulatory KALEB TAVAREZ Facility:[facility] Start: 02-18-2024 End: 02-20-2024 ambulatory LUKE MUNZAR Facility:[facility] Start: 02-16-2024 End: 02-18-2024 ambulatory NIK ANDERSEN Facility:[facility] Start: 02-08-2024 End: 02-09-2024 Emergency department patient visit LUKE MUNZAR Facility:[facility] Start: 02-05-2024 Emergency department patient visit LUKE MUNZAR Facility:[facility] Start: 11-06-2023 End: 11-06-2023 ambulatory LUKE MUNZAR Facility:[facility] Start: 10-24-2023 End: 10-24-2023 ambulatory LUKE MUNZAR Facility:[facility] Start: 09-29-2023 ambulatory LUKE MUNZAR Facility:[facility] Start: 09-24-2023 End: 09-24-2023 ambulatory LUKE MUNZAR Facility:[facility] Start: 09-13-2023 End: 09-13-2023 ambulatory LUKE MUNZAR Facility:[facility] Start: 09-07-2023 End: 09-07-2023 ambulatory JULIOCESAR REYES Facility:[facility] Start: 08-04-2023 Emergency department patient visit Physician Corrine [facility] Start: 08-04-2023 End: 08-04-2023 Emergency department patient visit Rogelio Madera DO Work Phone: [facility] Emergency Department Comment on above: Dehydration (Primary Dx); Medication reaction, initial encounter Start: 06-03-2023 End: 06-03-2023 ambulatory LUKE MUNZAR Facility:[facility] Start: 05-30-2023 End: 05-30-2023 ambulatory LUKE MUNZAR Facility:[facility] Start: 05-16-2023 End: 05-16-2023 ambulatory [facility] Facility:[facility] Start: 05-05-2023 End: 05-10-2023 Evaluation and management of inpatient [facility] Facility:[facility] Start: 05-04-2023 End: 05-05-2023 Evaluation and management of inpatient JAYA LEWIS Facility:[facility] Start: 05-04-2023 ambulatory Janee HAZEL Start: 05-04-2023 Follow-up encounter Janee Leong mbulatory Care Management Comment on above: Transition Of Care ( TCM Follow Up) Start: 05-03-2023 [facility] to [facility] Start: 05-03-2023 ambulatory [facility] Intake Comment on above: Detoxification Start: 05-03-2023 End: 05-03-2023 Evaluation and management of inpatient [facility] Facility:[facility] Start: 05-02-2023 Emergency department patient visit [facility] Facility:[facility] Start: 04-22-2023 End: 04-22-2023 ambulatory [facility] Start: 04-16-2023 End: 04-16-2023 ambulatory [facility] Facility:[facility] Start: 04-16-2023 End: 04-16-2023 Transitional care manage srvc 14 day discharge Terese Jack MD Work Phone: [facility] Comment on above: Moderate alcohol use disorder, in early remission (HCC) (Primary Dx); Hospital discharge follow-up; Hypogonadism in male; Chronic neck pain Start: 04-12-2023 Patient Outreach Janee Moncada RN Ambu latory Care Management Comment on above: Transition Of Care ( TCM Hospital Discharge 04/11) Start: 04-11-2023 Telephone encounter Terese chi MD Work Phone: [facility] Comment on above: Orders Start: 04-10-2023 End: 04-10-2023 Evaluation and management of inpatient [facility] Facility:[facility] Start: 04-10-2023 End: 04-11-2023 Evaluation and management of inpatient STEW HOLCOMB Facility:[facility] Start: 04-09-2023 End: 04-10-2023 Emergency department patient visit LAVELLE ELIZABETH Facility:[facility] Start: 04-05-2023 Patient Outreach Kelly mcarthur RN Work Phone: Sound Assistant Management Comment on above: Transition Of Care ( TCM [facility] D/C 04/04/23 Initial Outreach) Start: 04-04-2023 Telephone encounter Marlene Morrison cas TEA LEAF READER.SENIOR LINUX SYSTEMS ADMINISTRATOR Work Phone: [facility] Provider Adult Comment on above: Follow Up (Needs EGD and colonoscopy with Dr. Mabry) Start: 03-30-2023 End: 04-04-2023 Evaluation and management of inpatient JEWEL BROWNING Facility:[facility] Start: 03-30-2023 End: 03-30-2023 Emergency department patient visit LAVELLE ELIZABETH Facility:[facility] Start: 03-26-2023 Chart abstracting Leonel Lizarraga PA-C Work Phone: Gastroenterology Start: 03-25-2023 End: 03-25-2023 ambulatory LEONEL LIZARRAGA Facility:[facility] Start: 03-21-2023 ambulatory Terese Jack MD Work Phone: [facility] Start: 03-21-2023 Letter encounter Terese Bush Work Phone: [facility] Comment on above: Rr: Medical clearanc e letter Start: 03-07-2023 End: 03-07-2023 Nursing evaluation of [facility] and [facility] Work Phone: [facility] Comment on above: Low testosterone in male (Primary Dx) Start: 02-14-2023 Telephone encounter Terese chi MD Work Phone: [facility] Comment on above: Appointment Start: 01-24-2023 End: 01-24-2023 Nursing evaluation of patient and report Nurse Intm [facility] Work Phone: [facility] Comment on above: Low testosterone in male (Primary Dx) Start: 01-08-2023 Orders Only Leonel Dee Work Phone: Gastroenterology Comment on above: Blood in stool (Prim jose Dx); Alcoholic cirrhosis of liver without ascites (HCC); Portal hypertension with esophageal varices (HCC) Start: 12-13-2022 End: 12-13-2022 Nursing evaluation of patient and report [facility] Work Phone: [facility] Comment on above: Low testosterone in male (Primary Dx) Start: 12-11-2022 Refill Terese Jack MD Work Phone: [facility] Comment on above: Refill Request Start: 11-22-2022 End: 11-22-2022 Nursing evaluation of patient and report [facility] Work Phone: [facility] Comment on above: Low testosterone in male (Primary Dx) Start: 11-15-2022 End: 11-15-2022 ambulatory TERESE JACK Facility:[facility] Start: 11-15-2022 End: 11-15-2022 [facility] Comment on above: Abnormal results of liver function studies; Alcoholic cirrhosis of liver without ascites (HCC); Alcoholism (HCC) Start: 11-14-2022 ambulatory Terese Jack MD Work Phone: [facility] Comment on above: Re: Test Results Start: 10-18-2022 End: 10-18-2022 Nursing evaluation of patient and report Nurse [facility] Work Phone: [facility] Comment on above: Low testosterone in male (Primary Dx) Start: 10-13-2022 End: 10-13-2022 Alcohol abuse prevention Leonel Lizarraga PA-C Work Phone: Gastroenterology Comment on above: Alcoholic cirrhosis of liver without ascites (HCC) (Primary Dx); Abnormal results of liver function studies; Alcoholism (HCC); History of esophageal varices Start: 10-13-2022 End: 10-13-2022 Telemedicine consultation with patient Leonel Lizarraga PA-C Work Phone: [facility] Start: 10-10-2022 End: 10-10-2022 Nursing evaluation of patient and report [facility] Work Phone: [facility] Comment on above: Low testosterone in male (Primary Dx) Start: 10-08-2022 End: 10-08-2022 Patient encounter procedure Terese Jack MD Work Phone: [facility] Comment on above: Essential hypertensi on (Primary Dx); Bleeding from the nose Start: 10-05-2022 Telephone encounter María Jackson RNmechanical equipment sales engineerJfk Johnson [facility] Comment on above: Appointment Start: 10-01-2022 Orders Only Leonel Dee Work Phone: Gastroenterology Comment on above: Alcoholic cirrhosis of liver without ascites (HCC) (Primary Dx); Elevated liver enzymes Start: 09-24-2022 ambulatory Mag [place] hem RDMS Radiology Comment on above: Radiology US Start: 09-24-2022 Patient encounter procedure Mag Parchem RDMS [facility] Start: 09-21-2022 End: 09-21-2022 Nursing evaluation of patient and report Nurse [facility] Work Phone: [facility] Comment on above: Low testosterone in male (Primary Dx) Start: 09-06-2022 Telephone encounter Terese hci MD Work Phone: [facility] Comment on above: Orders Start: 09-06-2022 End: 09-06-2022 Nursing evaluation of patient and report [facility] Work Phone: [facility] Comment on above: Low testosterone in male (Primary Dx); Hypogonadism in male Start: 08-23-2022 End: 08-23-2022 Nursing evaluation of patient and report [facility] Work Phone: [facility] Comment on above: Low testosterone in male (Primary Dx) Start: 08-19-2022 Refill Terese Jack MD Work Phone: [facility] Comment on above: Refill Request Start: 08-10-2022 End: 08-10-2022 Patient encounter procedure Terese Jack MD Work Phone: [facility] Comment on above: Essential hypertensi on (Primary Dx); PTSD (post-traumatic stress disorder); Low testosterone in male Start: 07-05-2022 Orders Only Terese Jack MD Work Phone: [facility] Comment on above: COVID-19 Start: 07-04-2022 Telephone encounter Roverto jackson MD Work Phone: [facility] Comment on above: Appointment Start: 07-04-2022 End: 07-04-2022 ambulatory Lola Garcia TEA LEAF READER.SENIOR LINUX SYSTEMS ADMINISTRATOR Work Phone: [facility] Comment on above: COVID-19 (Primary Dx ) Start: 07-04-2022 End: 07-04-2022 Telemedicine consultation with patient Lola Garcia APRN.SENIOR LINUX SYSTEMS ADMINISTRATOR Work Phone: [facility] Start: 07-03-2022 ambulatory Terese Jack MD Work Phone: [facility] Comment on above: Re: Covid Start: 06-26-2022 ambulatory Terese Jack MD Work Phone: [facility] Comment on above: Re: Welburtin Start: 06-25-2022 End: 06-25-2022 Patient encounter procedure Terese Jack MD Work Phone: [facility] Comment on above: Hypogonadism in male (Primary Dx); Elevated blood-pressure reading without diagnosis of hypertension Start: 06-08-2022 End: 06-08-2022 Nursing evaluation of patient and report Nurse [facility] Work Phone: [facility] Comment on above: Hypogonadism in male (Primary Dx) Start: 06-07-2022 Refill Terese Jack MD Work Phone: [facility] Comment on above: Refill Request Start: 06-06-2022 Telephone encounter Terese chi MD Work Phone: [facility] Comment on above: Orders Start: 06-04-2022 Telephone encounter Terese chi MD Work Phone: [facility] Comment on above: Injections Start: 05-29-2022 End: 05-29-2022 Patient encounter procedure Cyn Enriquez MD Work Phone: Dermatology Comment on above: Verruca vulgaris (Pr imary Dx); Seborrheic keratosis Start: 05-09-2022 ambulatory Terese Jack MD Work Phone: [facility] Comment on above: RE: Testosterone bobby t Start: 05-08-2022 End: 05-08-2022 Subsequent hospital visit by physician Nelly Perez MD Work Phone: Procedures Start: 05-07-2022 End: 05-07-2022 ambulatory Leonel Lizarraga PA-C Work Phone: Gastroenterology Comment on above: Alcoholic cirrhosis of liver without ascites (HCC) (Primary Dx); Portal hypertension with esophageal varices (HCC); Thrombocytopenia (HCC) Screening for prosta te cancer (Primary Dx) Start: 05-07-2022 End: 05-07-2022 Telemedicine consultation with patient Leonel Lizarraga PA-C Work Phone: RACHNA MAT[facility] Start: 04-28-2022 End: 04-28-2022 [facility] Start: 04-28-2022 End: 04-28-2022 Alcohol abuse prevention [facility] Comment on above: Preop examination (P rimary Dx); Gastroesophageal reflux disease without esophagitis; Alcoholic cirrhosis of liver without ascites (HCC); Alcoholism (HCC); History of esophageal varices; PUD (peptic ulcer disease); Thrombocytopenia (HCC); Lymphopenia Start: 04-28-2022 End: 04-28-2022 Preprocedural examination done [facility]est[facility] Start: 04-24-2022 ambulatory Terese Jack MD Work Phone: [facility] Comment on above: RE: Testosterone lev els Start: 04-17-2022 End: 04-17-2022 Patient encounter procedure Terese Jack MD Work Phone: [facility] Comment on above: Drug-induced erectil e dysfunction (Primary Dx); Anxiety and depression; Erectile dysfunction, unspecified erectile dysfunction type Start: 04-17-2022 ambulatory Terese Jack MD Work Phone: [facility] Comment on above: Re. Today visit Start: 03-14-2022 End: 03-14-2022 Patient encounter procedure Juliocesar Reyes PA-C Work Phone: [facility] Comment on above: Spinal stenosis of c ervical region (Primary Dx); Neck pain; Chronic tension-type headache, intractable; CS (cervical spondylosis) Start: 02-26-2022 ambulatory Chetna Sagastume RT(R) Radiol ogy Comment on above: Radiology Start: 02-26-2022 Patient encounter procedure Chetna Sagastume RT(R) [facility] Start: 02-26-2022 End: 02-26-2022 Subsequent hospital visit by physician [facility] Work Phone: Radiology Comment on above: Alcoholic cirrhosis of liver without ascites (HCC) [K70.30] Start: 02-21-2022 Telephone encounter Nelly Perez MD Work Phone: Gastroenterology Comment on above: Appointment Cancelle d Start: 11-27-2021 End: 11-27-2021 Patient encounter procedure Leonel Lizarraga PA-C Work Phone: Gastroenterology Comment on above: Alcoholic cirrhosis of liver without ascites (HCC) (Primary Dx); Portal hypertension with esophageal varices (HCC); Thrombocytopenia (HCC) Procedures Date Procedure Procedure Detail Performing Clinician Start: 02-09-2024 Antibody screen KALEB PESTAK Comment on above: Order Comment: Speci men Type: BLOOD SPECIMENOrdering Facility: [facility] Address: [address] [place] [address] Performed By: #### T NAIF ####STACEY BLOOD BANKCLIA [id number] [place] [address] [place] Start: 02-08-2024 Electrocardiogram YARIEL TAVAREZ Start: 02-06-2024 Antibody screen KALEB PESTAK Comment on above: Order Comment: Speci men Type: BLOOD SPECIMENOrdering Facility: [facility] Address: [address] [place] [address] Performed By: #### T SCR ####STACEY BLOOD BANKCLIA [id number] [address] Start: 08-04-2023 Basic metabolic pane l calcium total Rogelio Santoucci-Uberti DO Work Phone: Start: 08-04-2023 PLATELET CONFIRMATION J ill Galucci-Uberti DO Work Phone: Start: 08-04-2023 Ecg routine ecg w/le ast 12 lds w/i&r Rogelio Lara-Uberti DO Work Phone: Start: 05-05-2023 Antibody screen KALEB PESTAK Comment on above: Order Comment: Speci men Type: BLOOD SPECIMENOrdering Facility: [facility] Address: [address] [place] [address] Performed By: #### T SCR ####STACEY BLOOD BANKCLIA [id number] [address] Start: 05-02-2023 Antibody screen KALEB PESTAK Comment on above: Order Comment: Speci men Type: BLOOD SPECIMENOrdering Facility: [facility] Address: [address] [place] [address] Performed By: #### T SCR ####STACEY BLOOD BANKCLIA [id number] [address] Start: 05-02-2023 Electrocardiogram REGIN A PESTAK Start: 04-10-2023 Antibody screen KALEB PESTAK Comment on above: Order Comment: Speci men Type: BLOOD SPECIMENOrdering Facility: [facility] Address: [address] [place] [address] Performed By: #### T SCR ####STACEY BLOOD BANKCLIA [id number] [address] Start: 03-30-2023 Antibody screen JEWEL MCKEON Comment on above: Order Comment: Speci men Type: BLOOD SPECIMENOrdering Facility: [facility] Address: [address] [place] [address] Performed By: #### T SCR ####JEN BLOOD BANKIA [id number] [place] [address] [place] Start: 08-10-2022 Lipid 1996 panel - S yoryd or Plasma Terese Jack MD Work Phone: Start: 05-08-2022 PLATELETS, ADULT Joe Epps MD Work Phone: Start: 02-26-2022 End: 02-26-2022 Us abdominal real time w/image limited Leonel Lizarraga PA-C Work Phone: Start: 05-26-2021 Adult depression scr eening assessment Leonel Lizarraga PA-C Work Phone: Start: 06-12-2019 Colonoscopy Leonel chi PA-C Work Phone: Start: 01-04-2019 Antibody screen Comment on above: Performed By: #### T +S #### [facility] [address] [place] [address] Plan of Treatment Date Care Activity Detail Author Start: 05-05-2028 Urine microalbumin profile [facility] Start: 08-10-2027 Lipid 1996 panel - Serum or Plasma Lipid Screening [facility] Start: 08-10-2027 LIPID SCREEN LIPID SCREEN [facility] Start: 10-26-2026 LIPID SCREEN LIPID SCREEN [facility] Start: 05-03-2026 Diabetes Screening Diabetes Screening [facility] Start: 04-16-2026 Diabetes Screening Diabetes Screening [facility] Start: 04-11-2026 DIABETES SCREEN DIABETES SCREEN [facility] Start: 04-09-2026 DIABETES SCREEN DIABETES SCREEN [facility] Start: 04-04-2026 DIABETES SCREEN DIABETES SCREEN [facility] Start: 01-14-2026 DIABETES SCREEN DIABETES SCREEN [facility] Start: 11-13-2025 DIABETES SCREEN DIABETES SCREEN [facility] Start: 09-21-2025 DIABETES SCREEN DIABETES SCREEN [facility] Start: 04-23-2025 DIABETES SCREEN DIABETES SCREEN [facility] Start: 03-24-2025 DIABETES SCREEN DIABETES SCREEN [facility] Start: 06-12-2024 Colonoscopy COLONOSCOPY [facility] Start: 06-12-2024 COLORECTAL CANCER SCREENING COLORECTAL CANCER SCREENING [facility] Start: 04-16-2024 Annual PCP Team Chronic Disease Visit Annual PCP Team Chronic Disease Visit [facility] Start: 11-02-2023 ANNUAL PCP TEAM CHRONIC DISEASE VISIT ANNUAL PCP TEAM CHRONIC DISEASE VISIT [facility] Start: 10-09-2023 ANNUAL PCP TEAM CHRONIC DISEASE VISIT ANNUAL PCP TEAM CHRONIC DISEASE VISIT [facility] Start: 08-10-2023 ANNUAL PCP TEAM CHRONIC DISEASE VISIT ANNUAL PCP TEAM CHRONIC DISEASE VISIT [facility] Start: 05-04-2023 End: 04-04-2024 EGD DIAGNOSTIC EGD DIAGNOSTIC Endoscopy Routine Hepatic cirrhosis, unspecified hepatic cirrhosis type, unspecified whether ascites present (HCC) Expected: 05/04/2023, Expires: 04/04/2024 [facility] Work Phone: Comment on above: Expected: 05/04/2023, Expires: Start: 04-17-2023 COVID-19 VACCINE (#1) COVID-19 VACCINE (#1) [facility] Comment on above: Postponed from 1968 (Declined at t his time) Start: 04-05-2023 Influenza vaccination [facility] Start: 03-24-2023 End: 11-12-2023 Ct abdomen w/o & w/contrast material CT LIVER WO/W IVCON Radiology Routine Abnormal results of liver function studies Alcoholic cirrhosis of liver without ascites (HCC) Expected: 03/24/2023 (Approximate), Expires: 11/12/2023 [facility] Work Phone: Comment on above: Expected: 03/24/2023 (Approximate), Expi res: 11/12/2023 Start: 03-05-2023 Influenza vaccination Flu vaccine (#1) [facility] Start: 02-01-2023 Influenza vaccination INFLUENZA (#1) [facility] Comment on above: Postponed from 04/05/2022 (Declined at t his time) Start: 01-08-2023 End: 03-10-2023 CBC panel - Blood by Automated count CBC Lab Routine Blood in stool Alcoholic cirrhosis of liver without ascites (HCC) Portal hypertension with esophageal varices (HCC) Expected: 01/08/2023, Expires: 03/10/2023 [facility] Work Phone: Comment on above: Expected: 01/08/2023, Expires: 3 Start: 01-08-2023 End: 03-10-2023 Comprehensive metabolic 2000 panel - Serum or Plasma COMP METABOLIC PANEL Lab Routine Blood in stool Alcoholic cirrhosis of liver without ascites (HCC) Portal hypertension with esophageal varices (HCC) Expected: 01/08/2023, Expires: 03/10/2023 [facility] Work Phone: Comment on above: Expected: 01/08/2023, Expires: 3 Start: 01-08-2023 End: 03-10-2023 Iron and Iron binding capacity panel - Serum or Plasma IRON + TIBC Lab Routine Blood in stool Alcoholic cirrhosis of liver without ascites (HCC) Portal hypertension with esophageal varices (HCC) Expected: 01/08/2023, Expires: 03/10/2023 [facility] Work Phone: Comment on above: Expected: 01/08/2023, Expires: 3 Start: 01-08-2023 End: 03-10-2023 PT panel - Platelet poor plasma by Coagulation assay PROTHROMBIN TIME/PT Lab Routine Blood in stool Alcoholic cirrhosis of liver without ascites (HCC) Portal hypertension with esophageal varices (HCC) Expected: 01/08/2023, Expires: 03/10/2023 [facility] Work Phone: Comment on above: Expected: 01/08/2023, Expires: 3 Start: 11-12-2022 End: 01-12-2023 Basic metabolic 2000 panel - Serum or Plasma BASIC METABOLIC PNL Lab Routine Abnormal results of liver function studies Alcoholic cirrhosis of liver without ascites (HCC) Expected: 11/12/2022 (Approximate), Expires: 01/12/2023 [facility] Work Phone: Comment on above: Expected: 11/12/2022 (Approximate), Expi res: 01/12/2023 Start: 11-12-2022 End: 01-12-2023 CBC W Auto Differential panel - Blood CBC + DIFF Lab Routine Abnormal results of liver function studies Alcoholic cirrhosis of liver without ascites (HCC) Expected: 11/12/2022 (Approximate), Expires: 01/12/2023 [facility] Work Phone: Comment on above: Expected: 11/12/2022 (Approximate), Expi res: 01/12/2023 Start: 11-12-2022 End: 01-12-2023 Hepatic function 2000 panel - Serum or Plasma HEPATIC FUNCTION PNL Lab Routine Abnormal results of liver function studies Alcoholic cirrhosis of liver without ascites (HCC) Expected: 11/12/2022 (Approximate), Expires: 01/12/2023 [facility] Work Phone: Comment on above: Expected: 11/12/2022 (Approximate), Expi res: 01/12/2023 Start: 11-12-2022 End: 01-12-2023 PT panel - Platelet poor plasma by Coagulation assay PROTHROMBIN TIME/PT Lab Routine Abnormal results of liver function studies Alcoholic cirrhosis of liver without ascites (HCC) Expected: 11/12/2022 (Approximate), Expires: 01/12/2023 [facility] Work Phone: Comment on above: Expected: 11/12/2022 (Approximate), Expi res: 01/12/2023 Start: 11-03-2022 Hepatitis a & b vaccine hepa-hepb adult im HEPA/HEPB VACCINE ADULT IM Immunization/Injection Routine Alcoholic cirrhosis of liver without ascites (HCC) Portal hypertension with esophageal varices (HCC) Expected: 11/03/2022 [facility] Work Phone: Comment on above: Expected: 11/03/2022 Start: 10-03-2022 End: 12-03-2022 [id number] [Mass/volume] in Serum or Plasma ALPHA FETOPROTEIN BL Lab Routine Alcoholic cirrhosis of liver without ascites (HCC) Portal hypertension with esophageal varices (HCC) Expected: 10/03/2022 (Approximate), Expires: 12/03/2022 [facility] Work Phone: Comment on above: Expected: 10/03/2022 (Approximate), Expi res: 12/03/2022 Start: 10-03-2022 End: 12-03-2022 Basic metabolic 2000 panel - Serum or Plasma BASIC METABOLIC PNL Lab Routine Alcoholic cirrhosis of liver without ascites (HCC) Portal hypertension with esophageal varices (HCC) Expected: 10/03/2022 (Approximate), Expires: 12/03/2022 [facility] Work Phone: Comment on above: Expected: 10/03/2022 (Approximate), Expi res: 12/03/2022 Start: 10-03-2022 End: 12-03-2022 CBC W Auto Differential panel - Blood CBC + DIFF Lab Routine Alcoholic cirrhosis of liver without ascites (HCC) Portal hypertension with esophageal varices (HCC) Expected: 10/03/2022 (Approximate), Expires: 12/03/2022 [facility] Work Phone: Comment on above: Expected: 10/03/2022 (Approximate), Expi res: 12/03/2022 Start: 10-03-2022 End: 12-03-2022 Hepatic function 2000 panel - Serum or Plasma HEPATIC FUNCTION PNL Lab Routine Alcoholic cirrhosis of liver without ascites (HCC) Portal hypertension with esophageal varices (HCC) Expected: 10/03/2022 (Approximate), Expires: 12/03/2022 [facility] Work Phone: Comment on above: Expected: 10/03/2022 (Approximate), Expi res: 12/03/2022 Start: 10-03-2022 End: 12-03-2022 PT panel - Platelet poor plasma by Coagulation assay PROTHROMBIN TIME/PT Lab Routine Alcoholic cirrhosis of liver without ascites (HCC) Portal hypertension with esophageal varices (HCC) Expected: 10/03/2022 (Approximate), Expires: 12/03/2022 [facility] Work Phone: Comment on above: Expected: 10/03/2022 (Approximate), Expi res: 12/03/2022 Start: 10-01-2022 End: 12-01-2022 Hepatic function 2000 panel - Serum or Plasma HEPATIC FUNCTION PNL Lab Routine Alcoholic cirrhosis of liver without ascites (HCC) Elevated liver enzymes Expected: 10/01/2022, Expires: 12/01/2022 [facility] Work Phone: Comment on above: Expected: 10/01/2022, Expires: 3 Start: 10-01-2022 End: 12-01-2022 PHOSPHATIDYLETHANOL (PETH) PHOSPHATIDYLETHANOL (PETH) Lab Routine Alcoholic cirrhosis of liver without ascites (HCC) Elevated liver enzymes Expected: 10/01/2022, Expires: 12/01/2022 [facility] Work Phone: Comment on above: Expected: 10/01/2022, Expires: 3 Start: 08-27-2022 End: 06-06-2023 Us abdominal real time w/image limited US ABD RT UPPER QUADRANT Radiology Routine Alcoholic cirrhosis of liver without ascites (HCC) Portal hypertension with esophageal varices (HCC) Expected: 08/27/2022 (Approximate), Expires: 06/06/2023 [facility] Work Phone: Comment on above: Expected: 08/27/2022 (Approximate), Expi res: 06/06/2023 Start: 08-10-2022 End: 10-10-2022 Testosterone [Mass/volume] in Serum or Plasma TESTOSTERONE TOTAL Lab Routine Low testosterone in male Expected: 08/10/2022, Expires: 10/10/2022 [facility] Work Phone: Comment on above: Expected: 08/10/2022, Expires: 3 Start: 08-05-2022 DEPRESSION ASSESSMENT DEPRESSION ASSESSMENT [facility] Start: 06-25-2022 End: 08-25-2022 CBC W Auto Differential panel - Blood CBC + DIFF Lab Routine Hypogonadism in male Expected: 06/25/2022, Expires: 08/25/2022 [facility] Work Phone: Comment on above: Expected: 06/25/2022, Expires: 3 Start: 06-25-2022 End: 08-25-2022 Lipid 1996 panel - Serum or Plasma LIPID PANEL BASIC Lab Routine Hypogonadism in male Expected: 06/25/2022, Expires: 08/25/2022 [facility] Work Phone: Comment on above: Expected: 06/25/2022, Expires: 3 Start: 06-25-2022 End: 08-25-2022 Testosterone [Mass/volume] in Serum or Plasma TESTOSTERONE TOTAL Lab Routine Hypogonadism in male Expected: 06/25/2022, Expires: 08/25/2022 [facility] Work Phone: Comment on above: Expected: 06/25/2022, Expires: 3 Start: 06-06-2022 Hepatitis a & b vaccine hepa-hepb adult im HEPA/HEPB VACCINE ADULT IM Immunization/Injection Routine Alcoholic cirrhosis of liver without ascites (HCC) Portal hypertension with esophageal varices (HCC) Expected: 06/06/2022 [facility] Work Phone: Comment on above: Expected: 06/06/2022 Start: 05-26-2022 Adult depression screening assessment DEPRESSION SCREENING [facility] Start: 05-07-2022 End: 07-07-2022 PSA/PROSTSPECAG SCRN PSA/PROSTSPECAG SCRN Lab Routine Screening for prostate cancer Expected: 05/07/2022, Expires: 07/07/2022 [facility] Work Phone: Comment on above: Expected: 05/07/2022, Expires: 2 Start: 04-30-2022 End: 06-30-2022 ALPHA FETOPROTEIN BL ALPHA FETOPROTEIN BL Lab Routine Alcoholic cirrhosis of liver without ascites (HCC) Expected: 04/30/2022 (Approximate), Expires: 06/30/2022 [facility] Work Phone: Comment on above: Expected: 04/30/2022 (Approximate), Expi res: 06/30/2022 Start: 04-30-2022 End: 06-30-2022 Basic metabolic 2000 panel - Serum or Plasma BASIC METABOLIC PNL Lab Routine Alcoholic cirrhosis of liver without ascites (HCC) Expected: 04/30/2022 (Approximate), Expires: 06/30/2022 [facility] Work Phone: Comment on above: Expected: 04/30/2022 (Approximate), Expi res: 06/30/2022 Start: 04-30-2022 End: 06-30-2022 CBC W Auto Differential panel - Blood CBC + DIFF Lab Routine Alcoholic cirrhosis of liver without ascites (HCC) Expected: 04/30/2022 (Approximate), Expires: 06/30/2022 [facility] Work Phone: Comment on above: Expected: 04/30/2022 (Approximate), Expi res: 06/30/2022 Start: 04-30-2022 End: 06-30-2022 HEPATIC FUNCTION PNL HEPATIC FUNCTION PNL Lab Routine Alcoholic cirrhosis of liver without ascites (HCC) Expected: 04/30/2022 (Approximate), Expires: 06/30/2022 [facility] Work Phone: Comment on above: Expected: 04/30/2022 (Approximate), Expi res: 06/30/2022 Start: 04-30-2022 End: 06-30-2022 PT panel - Platelet poor plasma by Coagulation assay PROTHROMBIN TIME/PT Lab Routine Alcoholic cirrhosis of liver without ascites (HCC) Expected: 04/30/2022 (Approximate), Expires: 06/30/2022 [facility] Work Phone: Comment on above: Expected: 04/30/2022 (Approximate), Expi res: 06/30/2022 Start: 04-05-2022 Influenza vaccination [facility] Start: 02-26-2022 End: 12-27-2022 Us abdominal real time w/image limited US ABD RT UPPER QUADRANT Radiology Routine Alcoholic cirrhosis of liver without ascites (HCC) Expected: 02/26/2022 (Approximate), Expires: 12/27/2022 [facility] Work Phone: Comment on above: Expected: 02/26/2022 (Approximate), Expi res: 12/27/2022 Start: 11-27-2021 End: 01-27-2022 HEPATITIS A ANTIBODY, IGG HEPATITIS A ANTIBODY, IGG Lab Routine Alcoholic cirrhosis of liver without ascites (HCC) Expected: 11/27/2021, Expires: 01/27/2022 [facility] Work Phone: Comment on above: Expected: 11/27/2021, Expires: 2 Start: 08-05-2021 DEPRESSION ASSESSMENT DEPRESSION ASSESSMENT [facility] Start: 2018 SHINGRIX VACCINE (1 of 2) SHINGRIX VACCINE (1 of 2) [facility] Start: 11-21-2017 FECAL OCCULT BLOOD FECAL OCCULT BLOOD [facility] Start: 2013 COLOGUARD (FIT-DNA) COLOGUARD (FIT-DNA) [facility] Start: [address] COLONOGRAPHY [facility] Start: 2013 SIGMOIDOSCOPY SIGMOIDOSCOPY [facility] Start: 1987 DTaP/Tdap/Td vaccine (1 - Tdap) DTaP/Tdap/Td vaccine (1 - Tdap) [facility] Start: 1987 HEPATITIS A (1 of 2 - Risk 2-dose series) HEPATITIS A (1 of 2 - Risk 2-dose series) [facility] Start: 1987 Hepatitis A Vaccine (1 of 2 - Risk 2-dose series) Hepatitis A Vaccine (1 of 2 - Risk 2-dose series) [facility] Start: 1987 HEPATITIS B (1 of 3 - Risk 3-dose series) HEPATITIS B (1 of 3 - Risk 3-dose series) [facility] Start: 1986 BP CONTROLLED (<130/80) BP CONTROLLED (<130/80) [facility] Start: 1974 PNEUMOCOCCAL (1 - PCV) PNEUMOCOCCAL (1 - PCV) [facility] ic Start: 1974 Pneumococcal vaccination Pneumococcal Vaccine (1 - PCV) [facility] Start: 1973 COVID-19 VACCINE (1) COVID-19 VACCINE (1) [facility] Start: 1969 HEPATITIS A (1 of 2 - Risk 2-dose series) HEPATITIS A (1 of 2 - Risk 2-dose series) [facility] Start: 1968 COVID-19 VACCINE (#1) COVID-19 VACCINE (#1) [facility] Start: 1968 HEPATITIS B (1 of 3 - 3-dose series) HEPATITIS B (1 of 3 - 3-dose series) [facility] Start: 1968 Hepatitis B Vaccine (1 of 3 - 3-dose series) Hepatitis B Vaccine (1 of 3 - 3-dose series) [facility] Hepatitis a & b vacc ine hepa-hepb adult im HEPA/HEPB VACCINE ADULT IM Immunization/Injection Routine Alcoholic cirrhosis of liver without ascites (HCC) Portal hypertension with esophageal varices (HCC) Ordered: 05/07/2022 [facility] Work Phone: Comment on above: Ordered: 05/07/2022 End: 04-13-2023 Mri spinal canal cervical w/o contrast matrl MRI CERVICAL SPINE WO IVCON Radiology Routine Spinal stenosis of cervical region Neck pain Chronic tension-type headache, intractable CS (cervical spondylosis) 1 Occurrences starting 03/14/2022 until 04/13/2023 [facility] Work Phone: Comment on above: 1 Occurrences starting 03/14/2022 until 04/13/2023 SURGICAL PATHOLOGY [facility] Work Phone: Comment on above: Release Upon Ordering for 1 Occurrences starting 05/08/2022, 1 completed End: 04-17-2023 Testosterone [Mass/volume] in Serum or Plasma TESTOSTERONE TOTAL Lab Routine Erectile dysfunction, unspecified erectile dysfunction type 3x per week for 6 Occurrences starting 04/17/2022 until 04/17/2023 [facility] Work Phone: Comment on above: 3x per week for 6 Occurrences starting 0 04/17/2022 until 04/17/2023 [facility] Immunizations Immunization Date Immunization Notes Care Provider Nilson luz 05-08-2019 Human Rabies vaccine from human diploid cell culture Leonel Lizarraga PA-C Work Phone: [facility] Work Phone: 05-01-2019 Human Rabies vaccine from human diploid cell culture Leonel Lizarraga PA-C Work Phone: [facility] Work Phone: 04-27-2019 Human Rabies vaccine from human diploid cell culture Leonel Lizarraga PA-C Work Phone: [facility] Work Phone: 04-20-2019 Human Rabies vaccine from human diploid cell culture Leonel Lizarraga PA-C Work Phone: [facility] 04-20-2019 rabies immune globulin Leonel Lizarraga PA-C Work Phone: [facility] 05-05-2018 tetanus toxoid, redu víctor diphtheria toxoid, and acellular pertussis vaccine, adsorbed Leoneldang Lizarraga PA-C Work Phone: [facility] 05-05-2018 influenza virus vaccine, unspecified formulation Terese Jack MD Work Phone: [facility] 05-26-2011 tetanus and diphther ia toxoids, not adsorbed, for adult use Leonel Lizarraga PA-C Work Phone: [facility] Payers Date Payer Category Payer Unknown [id number] 2022 Unknown [id number] 2019 Unknown MMO MMO [employer] [id number] 2019-Present [phone] [address] [place] [address] O [id number] 2019 Unknown [id number] 1968 Unknown [id number] 1968 Unknown [id number] 1968 Unknown [id number] Social History Date Type Detail Facility Start: 07-01-2013 End: 08-04-2023 Tobacco smoking status NHIS Ex-smoker [facility] Start: 08-06-2000 History of tobacco use Cigarette Smo ker [facility] Start: 07-01-2013 End: 03-14-2022 Tobacco use and exposure User of smokeless tobacco [facility] History of tobacco use Chews Tobacco [facility] Start: 11-27-2021 End: 08-04-2023 Alcohol intake Ex-drinker (finding) [facility] Start: 10-07-2020 History SDOH Alcohol Comment alcoholic [facility] Start: 01-01-2020 History SDOH Financial 5 [facility] Start: 01-01-2020 History SDOH Food Worry 1 [facility] Start: 01-01-2020 History SDOH Transpo rt Med 2 [facility] Start: 1970 Sex Assigned At Not on file C [facility] Start: 11-17-2021 End: 05-29-2022 Exposure to SARS-CoV-2 (event) Not sure [facility] Start: 08-06-2000 History of tobacco use Current smoke r [facility] Start: 04-17-2022 End: 04-27-2022 Exposure to SARS-CoV-2 (event) Unable to assess [facility] Work Phone: Start: 07-04-2022 End: 12-13-2022 History of Social function [facility] Start: 07-04-2022 End: 12-13-2022 Social connection and isolation panel [facility] In a typical week, h ow many times do you talk on the telephone with family, friends, or neighbors? Patient refused [facility] Are you now , , , , never or living with a partner? Refused [facility] (I/We) worried ethan er (my/our) food would run out before (I/we) got money to buy more. DK or Refused [facility] Start: 04-10-2023 End: 04-22-2023 Alcohol intake Current drinker of alcohol (finding) [facility] How hard is it for y ou to pay for the very basics like food, housing, medical care, and heating Not very hard [facility] (I/We) worried whedarrius er (my/our) food would run out before (I/we) got money to buy more. Never true [facility] In the past 12 month s, was there a time when you were not able to pay the mortgage or rent on time? No [facility] Start: 08-04-2023 Tobacco use and exposure Smokeless tobacco non-user [facility] Start: 08-04-2023 Alcohol Comment in recovery [facility] NEGATED: Highlighted rowStart: DELANOF History of tobacco use Passive smoker [facility] Clinical Notes 12-30-2019 to 02-20-2024 Discharge InstructionsJanee Silvestre RN - 05/04[facility]23 [facility] - 05/03/2023 4:06 PM EDT Note Date & Type Note Facility 02-20-2024 Note [facility] 02-19-2024 Note [facility] 02-18-2024 Note [facility] 02-17-2024 Note [facility] 02-10-2024 Note HNO ID: [id number] Author: MYLA HAWLEY loco Service: ? Author Type: Pharmacist Type: Progress Notes Filed: 02/10/2024 12:34 Note Text: TRANSITION CARE MANAGEMENT (TCM) PHARMACY CONTACT Provider Action/FYI: Unable to reach patient after unsuccessful outreach attempt. Left voicemail for patient including call back number to TCM pharmacist. TCM medication reconciliation incomplete at this time Patient unable to be reached after unsuccessful outreach attempt(s). No further attempts to contact patient will be made. SUMMARY: -Pt discharged from [facility] on 02/09/24. -Medication review not done History of Present Illness: The following content has been copied and pasted from patient's discharge summary. If discharge summary unavailable, After Visit Summary or last pertinent inpatient notes are copied and pasted. HOSPITAL COURSE: The patient was admitted to the hospital with a newdiagnosis of left leg cellulitis. Daily labs were ordered and reviewed to follow up progress of patients medical condition. Chemoprophylaxis was ordered for prevention of deep vein thrombosis. Diet was gradually advanced. Lorazepam was given for prevention of possible significant alcohol withdrawal symptoms. Infectious disease was consulted for inpatient antibiotics and discharge antibiotics to take home. Patient was initially given IV vancomycin, Zosyn, and clindamycin. They were then switched to cefazolin IV. Left leg cellulitis, erythema, pain was significantly improved on the day of discharge. After toleration of a full diet and adequate pain control, patient was discharged in a stable condition with instructions to followup in outpatient clinic. Medication Reconciliation: Legend: Stopped, New, Changed, Added to list Medication List Medication Directions Comments Action/Plan acetaminophen (TYLENOL EXTRA STRENGTH) 500 mg tablet Take 2 tablets by mouth every 6 hours as needed for pain for up to 5 days. cefADROxil (DURICEF) 500 mg capsule Take 2 capsules by mouth two times a day for 7 days. docusate sodium (COLACE) 100 mg capsule Take 1 capsule by mouth once daily. hydroCHLOROthiazide 12.5 mg capsule Take 1 capsule by mouth once daily. hydrOXYzine pamoate (VISTARIL) 50 mg capsule Take 1 capsule by mouth three times a day as needed for anxiety. lisinopril (ZESTRIL) 40 mg tablet Take 1 tablet by mouth once daily. magnesium oxide (MAG-OX) 400 mg (241.3 mg magnesium) tablet Take 1 tablet by mouth once daily. pantoprazole DR (PROTONIX) 40 mg tablet Take 1 tablet by mouth two times a day before meals at 6 am and 4 pm. sildenafil (VIAGRA) 100 mg tablet Take 1 tablet by mouth as needed. 30-60 minutes before sexual intercourse testosterone cypionate (DEPO-TESTOSTERONE) 200 mg/mL injection Inject 1 mL intramuscularly one time a week for 180 days. therapeutic multivitamin-minerals (THERA M PLUS, FERROUS FUMARAT,) 9 mg iron-400 mcg tablet Take 1 tablet by mouth once daily. thiamine (VITAMIN B1) 100 mg tablet 1 tablet by ORAL/FEEDING TUBE route three times a day. tiZANidine (ZANAFLEX) 4 mg tablet Take 1 tablet by mouth every 8 hours as needed. traZODone (DESYREL) 100 mg tablet Take 2 tablets by mouth daily at bedtime. venlafaxine ER (EFFEXOR XR) 37.5 mg 24 hr capsule Take 1 capsule by mouth daily with breakfast. Preferred pharmacy: [id number] [place] [id number] [facility] - [phone] [id number] [facility] [address] Estimated Creatinine Clearance: 102.6 mL/min (based on SCr of 0.84 mg/dL). Estimated Glomerular Filtration Rate (mL/min/1.73m?) Date Value 02/09/2024 103 eGFR- (no units) Date Value 02/09/2021 >60 Additional follow up: Next 5 Appointments None Interventions Made: None Pharmacist Recommendations Made None Care Coordination: None at this time Time spent on patient: 0-15 minutes Myla Hawley RPh February 10, 2024 7:32 AM [facility] 02-10-2024 Note Patient Outreach ( RXRF) GALINDO SNOW ([id number]) 1970 M Date Time Provider Department 02/10/24 MYLA HAWLEY [facility] During your visit today, we recorded the following information about you: Myla Hawley RPh 02/10/2024 12:34 PM Signed TRANSITION CARE MANAGEMENT (TCM) PHARMACY CONTACT Provider Action/FYI: Unable to reach patient after unsuccessful outreach attempt. Left voicemail for patient including call back number to TCM pharmacist. TCM medication reconciliation incomplete at this time Patient unable to be reached after unsuccessful outreach attempt(s). No further attempts to contact patient will be made. SUMMARY: -Pt discharged from [facility] on 02/09/24. -Medication review not done History of Present Illness: The following content has been copied and pasted from patient's discharge summary. If discharge summary unavailable, After Visit Summary or last pertinent inpatient notes are copied and pasted. HOSPITAL COURSE: The patient was admitted to the hospital with a newdiagnosis of left leg cellulitis. Daily labs were ordered and reviewed to follow up progress of patients medical condition. Chemoprophylaxis was ordered for prevention of deep vein thrombosis. Diet was gradually advanced. Lorazepam was given for prevention of possible significant alcohol withdrawal symptoms. Infectious disease was consulted for inpatient antibiotics and discharge antibiotics to take home. Patient was initially given IV vancomycin, Zosyn, and clindamycin. They were then switched to cefazolin IV. Left leg cellulitis, erythema, pain was significantly improved on the day of discharge. After toleration of a full diet and adequate pain control, patient was discharged in a stable condition with instructions to followup in outpatient clinic. Medication Reconciliation: Legend: Stopped, New, Changed, Added to list Medication List Medication Directions Comments Action/Plan acetaminophen (TYLENOL EXTRA STRENGTH) 500 mg tablet Take 2 tablets by mouth every 6 hours as needed for pain for up to 5 days. cefADROxil (DURICEF) 500 mg capsule Take 2 capsules by mouth two times a day for 7 days. docusate sodium (COLACE) 100 mg capsule Take 1 capsule by mouth once daily. hydroCHLOROthiazide 12.5 mg capsule Take 1 capsule by mouth once daily. hydrOXYzine pamoate (VISTARIL) 50 mg capsule Take 1 capsule by mouth three times a day as needed for anxiety. lisinopril (ZESTRIL) 40 mg tablet Take 1 tablet by mouth once daily. magnesium oxide (MAG-OX) 400 mg (241.3 mg magnesium) tablet Take 1 tablet by mouth once daily. pantoprazole DR (PROTONIX) 40 mg tablet Take 1 tablet by mouth two times a day before meals at 6 am and 4 pm. sildenafil (VIAGRA) 100 mg tablet Take 1 tablet by mouth as needed. 30-60 minutes before sexual intercourse testosterone cypionate (DEPO-TESTOSTERONE) 200 mg/mL injection Inject 1 mL intramuscularly one time a week for 180 days. therapeutic multivitamin-minerals (THERA M PLUS, FERROUS FUMARAT,) 9 mg iron-400 mcg tablet Take 1 tablet by mouth once daily. thiamine (VITAMIN B1) 100 mg tablet 1 tablet by ORAL/FEEDING TUBE route three times a day. tiZANidine (ZANAFLEX) 4 mg tablet Take 1 tablet by mouth every 8 hours as needed. traZODone (DESYREL) 100 mg tablet Take 2 tablets by mouth daily at bedtime. venlafaxine ER (EFFEXOR XR) 37.5 mg 24 hr capsule Take 1 capsule by mouth daily with breakfast. Preferred pharmacy: [facility] [address] - [place] [phone] [place] [phone] [id number] [facility] [address] Estimated Creatinine Clearance: 102.6 mL/min (based on SCr of 0.84 mg/dL). Estimated Glomerular Filtration Rate (mL/min/1.73m?) Date Value 02/09/2024 103 eGFR- (no units) Date Value 02/09/2021 >60 Additional follow up: Next 5 Appointments None Interventions Made: None Pharmacist Recommendations Made None Care Coordination: None at this time Time spent on patient: 0-15 minutes Myla Hawley [facility] February 10, 2024 7:32 AM Allergies As of Date: 02/10/2024 Noted Allergy Reaction DILAUDID (HYDROMORPHONE (BULK)) 11/03/2014 1 - Mental Status Change 9 - Itching Date Reviewed: 02/08/2024 Reviewed by: Anisa Junior, RN - Fully Assessed Reason for Visit: Transition Of Care [4074] Cmt: TCM Pharmacy-Hospital discharge 02/09/24 Prescriptions as of 02/10/2024 - cefADROxil (DURICEF) 500 mg capsule Take 2 capsules by mouth two times a day for 7 days. - acetaminophen (TYLENOL EXTRA STRENGTH) 500 mg tablet Take 2 tablets by mouth every 6 hours as needed for pain for up to 5 days. - pantoprazole DR (PROTONIX) 40 mg tablet Take 1 tablet by mouth two times a day before meals at 6 am and 4 pm. - lisinopril (ZESTRIL) 40 mg tablet Take 1 tablet by mouth once (more content not included)... [facility] 02-07-2024 Note [facility] 02-07-2024 Note [facility] 02-07-2024 Note [facility] 02-07-2024 Note [facility] 02-07-2024 Note [facility] 02-07-2024 Note [facility] 02-07-2024 Note [facility] 02-06-2024 Note [facility] 01-14-2024 Note HNO ID: [id number] Author: LEONEL LIZARRAGA PA-C Service: ? Author Type: Physician Bread Pan Greaser Type: Progress Notes Filed: 01/14/2024 10:37 Note Text: No showed for 7:45am visit today in person Leonel Lizarraga PA-C January 14, 2024 10:37 AM [facility] 11-06-2023 Note HNO ID: [id number] Author: RODOLFO DANGELO RN Service: ? Author Type: Registered Nurse Type: Progress Notes Filed: 11/06/2023 08:46 Note Text: Patient has been identified by name and date of : YES The patient is here for an injection of Testosterone Dose: 200 mg Route: Intramuscular Given without incident. Site: right upper quadrant gluteus Pt. supplied medication. Pt. tolerated without incident. Future appointments scheduled. Rodolfo Dangelo RN [facility] 09-29-2023 Note [facility] 09-26-2023 Note HNO ID: [id number] Author: MICHELLE BINGHAM LISW Service: ? Author Type: Customer Service Administrator Type: Progress Notes Filed: 09/26/2023 13:42 Note Text: Primary Care Social Work Provider Action / FYI PCP Action none Date of Service: 09/26/2023 Patient identified by name and date of : No Referral Source: Pursue Patient Outreach: Initial Mode of Outreach: MyChart Narrative: Patient completed the Social Determinants of Health (SDOH) questionnaire and scored positive for financial resource strain and housing stability. MyChart message sent to patient offering assistance with resources. SW will remain available. Interventions: SDOH outreach MAYLIN Tse September 26, 2023 1:38 PM [facility] 09-24-2023 Note HNO ID: [id number] Author: LUKE JACK MD Service: ? Author Type: Physician Type: Progress Notes Filed: 09/24/2023 15:23 Note Text: Outpatient Internal Medicine - [facility] Patient name: Galindo [place] Medical Record: [id number] cc: Patient presents with: Recheck 53 year old male with ACTIVE PROBLEM LIST Thrombocytopenia (Hcc) Gastropathy Alcohol Use Disorder Gallstones Pud (Peptic Ulcer Disease) Gerd (Gastroesophageal Reflux Disease) Ptsd (Post-Traumatic Stress Disorder) Bilateral Hand Numbness Cervicalgia Chronic Neck Pain Sprain of Anterior Talofibular Ligament of Right Ankle Lateral Epicondylitis of Left Elbow Arthralgia of Right Acromioclavicular Joint Anxiety Non Compliance With Medical Treatment Abdominal Pain Alcoholic Cirrhosis of Liver Without Ascites (Hcc) History of Esophageal Varices Hypogonadism in Male Essential Hypertension Alcohol Abuse Alcohol Withdrawal Delirium (Hcc) Nicotine use disorder, F17.2 Severe Protein-Calorie Malnutrition (Hcc) Alcohol Use Disorder, Severe, Dependence (Hcc) Alcoholic Cirrhosis (Hcc) Acute Idiopathic Gout of Left Foot Patient follows up for chronic disease management. Reports that he recently went through detox and rehabilitation. Has been doing 12-step meetings. Has been completely sober from alcohol use. During psychotherapy for both PTSD and addiction. Reports that he is now from ex-. Was prescribed trazodone 100 mg instead of doxepin (previously prescribed) for management of insomnia after cessation of alcohol. Both medications have not been effective to help with sleep. Is looking for an increase in intramuscular testosterone dosing. Current Outpatient Medications Medication Sig traZODone (DESYREL) 100 mg tablet Take 100 mg by mouth daily at bedtime. testosterone cypionate (DEPO-TESTOSTERONE) 200 mg/mL injection Inject 1 mL intramuscularly every 2 weeks for 180 days. tiZANidine (ZANAFLEX) 4 mg tablet Take 1 tablet by mouth every 8 hours as needed. sildenafil (VIAGRA) 100 mg tablet Take 1 tablet by mouth as needed. 30-60 minutes before sexual intercourse magnesium oxide (MAG-OX) 400 mg (241.3 mg magnesium) tablet Take 1 tablet by mouth once daily. thiamine (VITAMIN B1) 100 mg tablet 1 tablet by ORAL/FEEDING TUBE route three times a day. lisinopril (ZESTRIL) 40 mg tablet Take 1 tablet by mouth once daily. venlafaxine ER (EFFEXOR XR) 37.5 mg 24 hr capsule Take 1 capsule by mouth daily with breakfast. pantoprazole DR (PROTONIX) 40 mg tablet Take 1 tablet by mouth two times a day before meals at 6 am and 4 pm. hydroCHLOROthiazide 12.5 mg capsule Take 1 capsule by mouth once daily. docusate sodium (COLACE) 100 mg capsule Take 1 capsule by mouth once daily. therapeutic multivitamin-minerals (THERA M PLUS, FERROUS FUMARAT,) 9 mg iron-400 mcg tablet Take 1 tablet by mouth once daily. doxepin capsule 25 mg Take 1 capsule by mouth daily at bedtime. (Patient not taking: Reported on 09/24/2023) Current Facility-Administered Medications Medication Dose Route Frequency testosterone cypionate 200 mg injection (DEPO-TESTOSTERONE) 200 mg INTRAMUSCULAR q 2 WEEKS PE: BP (!) 120/40 Pulse 80 Resp 18 Wt 90.7 kg (200 lb) BMI 28.70 kg/m? Gen: No acute distress, well developed Cardiovascular examination reveals regular rate and rhythm. No murmurs rubs or gallops. Respiratory examination clear to auscultation bilaterally Impression: (F51.02) Adjustment insomnia (primary encounter diagnosis) (E29.1) Hypogonadism in male Plan: Increase trazodone to 200 mg at bedtime. If this is not effective, we can trial gabapentin. Increase testosterone dosing to 200 Mg once weekly. Medical Decision Making: Problems: Moderate: 1+ chronic illnesses with change Risk: Moderate: Drug management Medical Decision Making Level: 4 - Moderate Return to clinic in 2 months with labs. Luke Jack MD Internal Medicine - Primary Care [facility] 09/24/2023 10:09 AM [facility] 09-07-2023 Note HNO ID: [id number] Author: HERLINDA LEAHY RT(R) Service: ? Author Type: Floral Artist Type: Progress Notes Filed: 09/07/2023 14:17 Note Text: Radiology Service Progress Note PATIENT NAME: Galindo Snow DATE OF SERVICE: September 07, 2023 TIME: 2:17 PM PATIENT IDENTITY VERIFICATION COMPLETED USING TWO (2) IDENTIFIERS: Name and Date of confirmed by patient verbally. FALL SCREENING: Has the patient had 2 falls in the last year or 1 fall with injury or currently using an Ambulatory Assistive Device (Walker, Cane, Wheelchair, Crutches, etc.)? No PATIENT GENDER DATA: Male PATIENT RELEVANT IMPLANT DATA REVIEWED: Not Applicable PATIENT PRESENTS WITH AN IMPLANTABLE OR ATTACHED PODODERMATOLOGIST: No RADIOLOGY DEPARTMENT: General X-ray: Exam(s) Completed: Spine X-Ray(s): Cervical AP / LAT / OBL / FLEX-EXT PERIPHERAL IV DATA: Not applicable SIGNED BY: Herlinda Leahy RT(R) September 07, 2023 2:17 PM [facility] 08-04-2023 Hospital Discharge instructions Rogelio Madera DO - 08/04/2023 11:21 AM EST Avoid large doses of phenobarbital as it has adversely affected the blood pressure. The following attachments cannot be sent through Care Everywhere.Dehydration (Tajik)Medication Side Effects (Tajik)documented in this encounter [facility] 06-06-2023 Note HNO ID: [id number] Author: Shanna Lopez RN Service: ? Author Type: Registered Nurse Type: Progress Notes Filed: 06/06/2023 3:32 PM Note Text: TRANSITION CARE MANAGEMENT (TCM) FOLLOW-UP NOTE Provider Action/FYI Completed OV with PCP Terese Jack MD 06/03/23 END tcm outreach SUMMARY: Discharge Network Status: In-Network Discharge Pt discharged from [facility] on 05/10/23. Admitted for: hematemesis and alcohol withdrawal. Metal Storage Worker plan for next outreach: No further follow up needed at this time ADELAIDE Education Ordered -: No Signature Shanna Lopez RN June 06, 2023 [facility] 06-06-2023 Note Patient Outreach ([facility]) GALINDO SNOW ([id number]) 1970 M Date Time Provider Department 06/06/23 SHANNA LOPEZ [facility] During your visit today, we recorded the following information about you: Shanna Lopez, RN 06/06/2023 3:32 PM Signed TRANSITION CARE MANAGEMENT (TCM) FOLLOW-UP NOTE Provider Action/FYI Completed OV with PCP Terese Jack MD 06/03/23 END tcm outreach SUMMARY: Discharge Network Status: In-Network Discharge Pt discharged from [facility] on 05/10/23. Admitted for: hematemesis and alcohol withdrawal. Metal Storage Worker plan for next outreach: No further follow up needed at this time [employer]DELAIDE Education Ordered -: No Signature Shanna Lopez RN June 06, 2023 Allergies As of Date: 06/06/2023 Noted Allergy Reaction DILAUDID (HYDROMORPHONE (BULK)) 11/03/2014 1 - Mental Status Change 9 - Itching Date Reviewed: 06/03/2023 Reviewed by: Myla Mazariegos MA - Fully Assessed Reason for Visit: Transition Of Care [4074] Cmt: TCM HOSPITAL DISCHARGE FOLLOW UP (Final Outreach) Prescriptions as of 06/06/2023 - doxepin capsule 25 mg Take 1 capsule by mouth daily at bedtime. - sildenafil (VIAGRA) 100 mg tablet Take 1 tablet by mouth as needed. 30-60 minutes before sexual intercourse - magnesium oxide (MAG-OX) 400 mg (241.3 mg magnesium) tablet Take 1 tablet by mouth once daily. - thiamine (VITAMIN B1) 100 mg tablet 1 tablet by ORAL/FEEDING TUBE route three times a day. - lisinopril (ZESTRIL) 40 mg tablet Take 1 tablet by mouth once daily. - venlafaxine ER (EFFEXOR XR) 37.5 mg 24 hr capsule Take 1 capsule by mouth daily with breakfast. - pantoprazole DR (PROTONIX) 40 mg tablet Take 1 tablet by mouth two times a day before meals at 6 am and 4 pm. - hydroCHLOROthiazide 12.5 mg capsule Take 1 capsule by mouth once daily. - testosterone cypionate (DEPO-TESTOSTERONE) 200 mg/mL injection Inject 1 mL intramuscularly every 2 weeks for 180 days. - docusate sodium (COLACE) 100 mg capsule Take 1 capsule by mouth once daily. - therapeutic multivitamin-minerals (THERA M PLUS, FERROUS FUMARAT,) 9 mg iron-400 mcg tablet Take 1 tablet by mouth once daily. Facility-Administered Medications as of 06/06/2023 - testosterone cypionate 200 mg injection (DEPO-TESTOSTERONE) Meds Comments as of 12/30/2019: Pt stopped taking medications about 2 weeks ago- restarted 12/27 Problem List As Of Date 06/06/2023 Noted Resolved Thrombocytopenia (HCC) [D69.6] 07/01/2013 Gastropathy [K31.9] Alcohol use disorder [F10.90] Gallstones [K80.20] PUD (peptic ulcer disease) [K27.9] GERD (gastroesophageal reflux disease) [K21.9] 11/03/2014 PTSD (post-traumatic stress disorder) [F43.10] 11/03/2014 Bilateral hand numbness [R20.0] 10/22/2016 Cervicalgia [M54.2] 10/22/2016 Chronic neck pain [M54.2, G89.29] 10/22/2016 Sprain of anterior talofibular ligament of righ*07/07/2017 Lateral epicondylitis of left elbow [M77.12] 11/11/2017 Arthralgia of right acromioclavicular joint [M2*04/21/2018 Anxiety [F41.9] 06/14/2018 GI bleed [K92.2] 12/30/2019 01/01/2020 Non compliance with medical treatment [Z91.199] 12/30/2019 Abdominal pain [R10.9] 08/29/2020 Alcoholic cirrhosis of liver without ascites (H*03/01/2022 History of esophageal varices [Z87.19] 03/01/2022 Hypogonadism in male [E29.1] 05/09/2022 Essential hypertension [I10] 08/10/2022 Acute upper GI bleeding [K92.2] 03/30/2023 04/04/2023 Bleeding esophageal varices (HCC) [I85.01] 03/31/2023 04/04/2023 Hematemesis with nausea [K92.0] 03/31/2023 04/11/2023 Alcohol abuse [F10.10] 03/31/2023 Alcohol withdrawal delirium (HCC) [F10.931] 03/31/2023 Upper GI bleed [K92.2] 04/10/2023 04/11/2023 LLQ abdominal pain [R10.32] 04/10/2023 04/11/2023 Hematemesis without nausea [K92.0] 04/10/2023 04/11/2023 Nicotine use disorder, F17.2 [F17.200] 04/10/2023 Acute upper GI bleed [K92.2] 05/02/2023 05/03/2023 Severe protein-calorie malnutrition (HCC) [E43] 05/03/2023 GI bleeding [K92.2] 05/03/2023 05/04/2023 Alcohol use disorder, severe, dependence (HCC) *05/04/2023 Hematemesis [K92.0] 05/06/2023 05/10/2023 Withdrawal symptoms, alcohol, with delirium (HC*05/06/2023 05/10/2023 Acute encephalopathy [G93.40] 05/06/2023 05/10/2023 Alcoholic cirrhosis (HCC) [K70.30] 05/06/2023 Alcohol withdrawal syndrome with complication (*05/07/2023 05/10/2023 Delirium [R41.0] 05/08/2023 05/10/2023 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] 05/10/2023 Encounter Status:Closed by SHANNA LOPEZ on 06/06/23 [facility] 06-03-2023 Note HNO ID: [id number] Author: Terese Jack MD Service: ? Author Type: Physician Type: Progress Notes Filed: 06/03/2023 5:10 PM Note Text: Outpatient Internal Medicine - [facility] Patient name: Galindo Snow Medical Record: [id number] cc: Patient presents with: Follow Up: JANETH Sleep Problem 52 year old male with ACTIVE PROBLEM LIST Thrombocytopenia (Hcc) Gastropathy Alcohol Use Disorder Gallstones Pud (Peptic Ulcer Disease) Gerd (Gastroesophageal Reflux Disease) Ptsd (Post-Traumatic Stress Disorder) Bilateral Hand Numbness Cervicalgia Chronic Neck Pain Sprain of Anterior Talofibular Ligament of Right Ankle Lateral Epicondylitis of Left Elbow Arthralgia of Right Acromioclavicular Joint Anxiety Non Compliance With Medical Treatment Abdominal Pain Alcoholic Cirrhosis of Liver Without Ascites (Hcc) History of Esophageal Varices Hypogonadism in Male Essential Hypertension Alcohol Abuse Alcohol Withdrawal Delirium (Hcc) Nicotine use disorder, F17.2 Severe Protein-Calorie Malnutrition (Hcc) Alcohol Use Disorder, Severe, Dependence (Hcc) Alcoholic Cirrhosis (Hcc) Acute Idiopathic Gout of Left Foot Patient comes in for follow-up after hospitalization. Reports that his biggest issue over the past few months has been an inability to sleep at night. Reports that he does feel tired but ends up staring at the ceiling without being able to sleep at night. Has been prescribed doxepin 10 mg which he has been taking regularly and this does not help at all. Has not ever tried out any increased dose. Reports that alcohol consumption does not ever help out with insomnia either. Requesting refill on Viagra. Otherwise feels well. Reports that he was told to follow-up over here for hypertension management as his blood pressure readings were excessively high in the hospitalization. Current Outpatient Medications Medication Sig lisinopril (ZESTRIL) 40 mg tablet Take 1 tablet by mouth once daily. doxepin capsule 10 mg Take 1 capsule by mouth daily at bedtime. venlafaxine ER (EFFEXOR XR) 37.5 mg 24 hr capsule Take 1 capsule by mouth daily with breakfast. pantoprazole DR (PROTONIX) 40 mg tablet Take 1 tablet by mouth two times a day before meals at 6 am and 4 pm. hydroCHLOROthiazide 12.5 mg capsule Take 1 capsule by mouth once daily. testosterone cypionate (DEPO-TESTOSTERONE) 200 mg/mL injection Inject 1 mL intramuscularly every 2 weeks for 180 days. magnesium oxide (MAG-OX) 400 mg (241.3 mg magnesium) tablet Take 1 tablet by mouth once daily. thiamine (VITAMIN B1) 100 mg tablet 1 tablet by ORAL/FEEDING TUBE route three times daily. docusate sodium (COLACE) 100 mg capsule Take 1 capsule by mouth once daily. therapeutic multivitamin-minerals (THERA M PLUS, FERROUS FUMARAT,) 9 mg iron-400 mcg tablet Take 1 tablet by mouth once daily. sildenafil (VIAGRA) 100 mg tablet Take 1 tablet by mouth as needed. 30-60 minutes before sexual intercourse Current Facility-Administered Medications Medication Dose Route Frequency testosterone cypionate 200 mg injection (DEPO-TESTOSTERONE) 200 mg INTRAMUSCULAR q 2 WEEKS PE: BP 140/60 Pulse 97 Resp 18 Wt 78.5 kg (173 lb) BMI 24.82 kg/m? Gen: No acute distress, well developed Cardiovascular examination reveals regular rate and rhythm. No murmurs rubs or gallops. Respiratory examination clear to auscultation bilaterally Impression: (F51.01) Primary insomnia (primary encounter diagnosis) (N52.2) Drug-induced erectile dysfunction (I10) Essential hypertension Plan: All questions were answered regarding the hospitalization. Shared this made to increase doxepin to 25 mg at bedtime. Advised to trial this for at least 2 weeks, if this is still not working out, we can increase the dose further. Hypertension is well controlled. Continue current Rx as listed above. Medical Decision Making: Problems: Moderate: 1+ chronic illnesses with change Data: Unique source(s) for external note(s) reviewed: 1 Unique test result(s) reviewed: 2 Risk: Moderate: Drug management Medical Decision Making Level: 4 - Moderate Luke Jack MD Internal Medicine - Primary Care [facility] 06/03/2023 1:16 PM [facility] 05-18-2023 Note HNO ID: [id number] Author: Note, Interface Service: ? Author Type: ? Type: Progress Notes Filed: 05/18/2023 3:52 AM Note Text: Epic Scheduled Downtime: 05/18/2023 1:00:00 AM to 05/18/2023 1:28:00 AM [facility] 05-18-2023 Note HNO ID: [id number] Author: Note, Interface Service: ? Author Type: ? Type: Progress Notes Filed: 05/18/2023 3:40 AM Note Text: Epic Scheduled Downtime: 05/18/2023 1:00:00 AM to 05/18/2023 1:28:00 AM [facility] 05-18-2023 Note HNO ID: [id number] Author: Note, Interface Service: ? Author Type: ? Type: Progress Notes Filed: 05/18/2023 3:16 AM Note Text: Epic Scheduled Downtime: 05/18/2023 1:00:00 AM to 05/18/2023 1:28:00 AM [facility] 05-18-2023 Note HNO ID: [id number] Author: Note, Interface Service: ? Author Type: ? Type: Progress Notes Filed: 05/18/2023 1:47 AM Note Text: Epic Scheduled Downtime: 05/18/2023 1:00:00 AM to 05/18/2023 1:28:00 AM [facility] 05-13-2023 Note HNO ID: [id number] Author: Shanna Lopez, RN Service: ? Author Type: Registered Nurse Type: Progress Notes Filed: 05/13/2023 3:52 PM Note Text: TRANSITIONAL CARE MANAGEMENT ([facility]) COMMUNITY MONITORING PROGRAM Provider Action/FYI: Spoke with patient who reports he is doing well. Pt denies questions or concerns regarding medications, self care, and discharge instructions. Pt has follow up appointments in place and is agreeable with recommended plan of care. Follow up [facility] FU 05/20/23 Psych arranged follow-up for alcohol use/PTSD at [facility] on 05/21. SUMMARY: Discharge Network Status: In-Network Discharge Pt discharged from [facility] on 05/10/23. Admitted for: hematemesis and alcohol withdrawal. Contact made with patient: Yes Hi my name is Shanna Lopez, GALE and I am calling from the [facility] on behalf of your PCP, Terese Jack MD I understand you were recently in the hospital so I am calling to check in with you to ensure you are feeling well now that you're home. May I ask you a few questions related to your hospital stay and well-being? Yes Contact with patient post discharge, spoke to patient. Patient identified by name and . Do you feel your health is BETTER, WORSE, or the SAME since leaving the hospital? Better ACTION TAKEN: Patient indicated symptoms are better or same, no action required. Continue outreach. MEDICATIONS: Many patients have questions or concerns about their medications once they are home. Do you have any questions about taking your medications or which medication you should be on? No Do you need any medication refills at this time, including any of the medications you might take only when needed? No ACTION TAKEN: No action required For RNs or Pharmacy completing outreach ONLY, was a medication review completed? Yes SOCIAL: We would like to make sure you have what you need so that your basics needs are met - including your personal safety, food, housing and medications. Would you like to speak with a social work cleaning team member to help give you support for any of these needs? No It can be normal to feel anxious or down during a time like this. Would you like to talk to a mental health professional about how you have been feeling? No ACTION TAKEN: No action taken DISCHARGE INTRUCTIONS: Your discharge instructions / After Visit Summary (AVS) are important in guiding you through the recovery process. Do you have any questions related to your discharge instructions? No Do you have all the necessary equipment and supplies at home? Yes ACTION TAKEN: No action required I would like to help you schedule a hospital follow-up virtual or telephone visit with your PCP. This is a great way for you to connect with your provider to ensure you have safely transitioned home. If you are agreeable, I will send your request to a petroleum engineer who will contact and assist you with that appointment. This will give you an opportunity to ask any questions or address any concerns you may have with your PCP. Inform the patient that if they have any questions or concerns prior to that appointment, to call their PCP's office right away. ACTION TAKEN: No action required, patient already has an appointment scheduled. Your doctor would like us to remind you of the recommendations regarding the coronavirus (Covid19) outbreak: Avoid public places as much as possible. Avoid close contact (within 6 feet) with others you don?t live with, especially if they are sick. Stay home if you are sick. Wash your hands regularly for at least 20 seconds with soap and water. Wear a cloth mask in public places to help reduce community spread. Do not go to your Doctor?s office unless instructed to do so. For any non-emergency symptoms, call your Doctor?s office to get instructions on how to manage (we might recommend a telephone or virtual visit). For emergency symptoms, proceed to Emergency Department as usual but inform them of cough and fever symptoms KELI if present (or call on the way if possible). ADELAIDE Education Ordered -: No [facility] 05-13-2023 Note HNO ID: [id number] Author: Shanna Lopez RN Service: ? Author Type: Registered Nurse Type: Progress Notes Filed: 05/13/2023 3:52 PM Note Text: [facility] Home Visit Referral Source of Stratification: [facility] Hospital Admission Status: Discharged Readmission Risk Score: 24 FAVIAN Score: 9 Patient meets program referral criteria: No Patient does not qualify for High Risk TCM Home Visit program due to: Discharged home, does not meet program criteria TRANSITIONAL CARE MANAGEMENT (TCM) COMMUNITY MONITORING PROGRAM Provider Action/FYI: Initial outreach attempt to patient following hospital discharge. No answer, left voice message with call back number [phone]. Will attempt another patient outreach later today or tomorrow. Follow up [facility] 05/20/23 Psych arranged follow-up for alcohol use/PTSD at [facility] on 05/21. SUMMARY: Discharge Network Status: In-Network Discharge Pt discharged from [facility] on 05/10/23. Admitted for: hematemesis and alcohol withdrawal. Contact made with patient: No - next outreach attempt will be on next day Outreach [facility] 05-13-2023 Note Patient Outreach ([facility]) GALINDO SNOW ([id number]) 1970 M Date Time Provider Department 05/13/23 SHANNA LOPEZ [facility] During your visit today, we recorded the following information about you: Shanna Lopez, RN 05/13/2023 3:52 PM Signed TCM Home Visit Referral Source of Stratification: [facility] Admission Status: Discharged Readmission Risk Score: 24 FAVIAN Score: 9 Patient meets program referral criteria: No Patient does not qualify for High Risk TCM Home Visit program due to: Discharged home, does not meet program criteria TRANSITIONAL CARE MANAGEMENT (TCM) COMMUNITY MONITORING PROGRAM Provider Action/FYI: Initial outreach attempt to patient following hospital discharge. No answer, left voice message with call back number [phone]. Will attempt another patient outreach later today or tomorrow. Follow up [facility] 05/20/23 Psych arranged follow-up for alcohol use/PTSD at [facility] on 05/21. SUMMARY: Discharge Network Status: In-Network Discharge Pt discharged from [facility] on 05/10/23. Admitted for: hematemesis and alcohol withdrawal. Contact made with patient: No - next outreach attempt will be on next day Outreach ended Shanna Lopez RN 05/13/2023 3:52 PM Signed TRANSITIONAL CARE MANAGEMENT ([facility]) COMMUNITY MONITORING PROGRAM Provider Action/FYI: Spoke with patient who reports he is doing well. Pt denies questions or concerns regarding medications, self care, and discharge instructions. Pt has follow up appointments in place and is agreeable with recommended plan of care. Follow up [facility] FU 05/20/23 Psych arranged follow-up for alcohol use/PTSD at [facility] on 05/21. SUMMARY: Discharge Network Status: In-Network Discharge Pt discharged from [facility] on 05/10/23. Admitted for: hematemesis and alcohol withdrawal. Contact made with patient: Yes Hi my name is Shanna Lopez RN and I am calling from the [facility] on behalf of your PCP, Terese Jack MD I understand you were recently in the hospital so I am calling to check in with you to ensure you are feeling well now that you're home. May I ask you a few questions related to your hospital stay and well-being? Yes Contact with patient post discharge, spoke to patient. Patient identified by name and . Do you feel your health is BETTER, WORSE, or the SAME since leaving the hospital? Better ACTION TAKEN: Patient indicated symptoms are better or same, no action required. Continue outreach. MEDICATIONS: Many patients have questions or concerns about their medications once they are home. Do you have any questions about taking your medications or which medication you should be on? No Do you need any medication refills at this time, including any of the medications you might take only when needed? No ACTION TAKEN: No action required For RNs or Pharmacy completing outreach ONLY, was a medication review completed? Yes SOCIAL: We would like to make sure you have what you need so that your basics needs are met - including your personal safety, food, housing and medications. Would you like to speak with a social work cleaning team member to help give you support for any of these needs? No It can be normal to feel anxious or down during a time like this. Would you like to talk to a mental health professional about how you have been feeling? No ACTION TAKEN: No action taken DISCHARGE INTRUCTIONS: Your discharge instructions / After Visit Summary (AVS) are important in guiding you through the recovery process. Do you have any questions related to your discharge instructions? No Do you have all the necessary equipment and supplies at home? Yes ACTION TAKEN: No action required I would like to help you schedule a hospital follow-up virtual or telephone visit with your PCP. This is a great way for you to connect with your provider to ensure you have safely transitioned home. If you are agreeable, I will send your request to a petroleum engineer who will contact and assist you with that appointment. This will give you an opportunity to ask any questions or address any concerns you may have with your PCP. Inform the patient that if they have any questions or concerns prior to that appointment, to call their PCP's office right away. ACTION TAKEN: No action required, patient already has an appointment scheduled. Your doctor would like us to remind you of the recommendations regarding the coronavirus (Covid19) outbreak: Avoid public places as much as possible. Avoid close contact (within 6 feet) with others you don?t live with, especially if they are sick. Stay home if you are sick. Wash your hands regularly for at least 20 seconds with soap and water. Wear a cloth mask in public places to help reduce communit (more content not included)... [facility] 05-10-2023 Note [facility] 05-09-2023 Note [facility] 05-08-2023 Note [facility] 05-07-2023 Note [facility] 05-07-2023 Note [facility] 05-06-2023 Note [facility] 05-06-2023 Note [facility] 05-06-2023 Note [facility] 05-04-2023 Note [facility] 05-04-2023 Note HNO ID: [id number] Author: Janee Moncada, GALE Service: ? Author Type: Registered Nurse Type: Progress Notes Filed: 05/04/2023 1:46 PM Note Text: TRANSITION CARE MANAGEMENT (TCM) FOLLOW-UP NOTE Provider Action/ Hospital discharge follow up chart review; patient is currently admitted at [facility]. Name will be removed from care team as Primary Care Dietary Worker. Will follow up pending hospital discharge disposition Summary: Pt discharged from [facility] on 04/11. 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 Name will be removed from care team as Primary Care Dietary Worker. Will follow up pending hospital discharge disposition Summary: Pt discharged from [facility] on 04/11. 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 for next outreach: No further follow up needed at this time [employer] Education Ordered -: No Signature Janee Moncada RN May 04, 2023 documented in this encounter [facility] 05-04-2023 Note [facility] 05-04-2023 Note Patient Outreach (AM [facility]) GALINDO SNOW ([id number]) 1970 M Date Time Provider Department 05/04/23 JANEE MONCADA [facility] During your visit today, we recorded the following information about you: Janee Moncada RN 05/04/2023 1:46 PM Signed TRANSITION CARE MANAGEMENT (TCM) FOLLOW-UP NOTE Provider Action/[facility] Hospital discharge follow up chart review; patient is currently admitted at [facility]. Name will be removed from care team as Primary Care Dietary Worker. Will follow up pending hospital discharge disposition Summary: Pt discharged from [facility] on 04/11. 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 - testosterone cypionate (DEPO-TESTOSTERONE) 200 mg/mL injection Inject 1 mL intramuscularly every 2 weeks for 180 days. - tiZANidine (ZANAFLEX) 4 mg tablet Take 1 tablet by mouth every 8 hours as needed. - lactulose 20 gram/30 mL solution 30 mL by ORAL/FEEDING TUBE route three times daily. - sildenafil (VIAGRA) 100 mg tablet Take 1 tablet by mouth as needed. 30-60 minutes before sexual intercourse - lisinopril (ZESTRIL) 40 mg tablet Take 1 tablet by mouth once daily. - hydroCHLOROthiazide 12.5 mg capsule Take 1 capsule by mouth once daily. - buPROPion XL (WELLBUTRIN XL) 300 mg 24 hr tablet Take 1 tablet by mouth once daily. - magnesium oxide (MAG-OX) 400 mg (241.3 mg magnesium) tablet Take 1 tablet by mouth once daily. - thiamine (VITAMIN B1) 100 mg tablet 1 tablet by ORAL/FEEDING TUBE route three times daily. - docusate sodium (COLACE) 100 mg capsule Take 1 capsule by mouth once daily. - therapeutic multivitamin-minerals (THERA M PLUS, FERROUS FUMARAT,) 9 mg iron-400 mcg tablet Take 1 tablet by mouth once daily. Facility-Administered Medications as of 05/04/2023 - pantoprazole DR 40 mg tab(s) (PROTONIX) - tiZANidine 4 mg tab(s) (ZANAFLEX) - melatonin 3 mg tab(s) - LORazepam 1 mg injection (ATIVAN) - LORazepam 2 mg injection (ATIVAN) - LORazepam 2 mg injection (ATIVAN) - buPROPion XL 300 mg tab(s) (WELLBUTRIN XL) - lactulose 20 g CUP - magnesium oxide 400 mg tab(s) (MAG-OX) - adult multivitamin 10 mL, folic acid 1 mg in NaCl 0.9% 1,000 mL - magnesium sulfate iv piggyback in sterile water 2 g 50 mL - thiamine 200 mg in NaCl 0.9% 50 mL (VITAMIN B1) - thiamine 100 mg tab(s) (VITAMIN B1) - prochlorperazine 5 mg tab(s) (COMPAZINE) - NaCl 0.9% iv flush bag Meds Comments as of 12/30/2019: Pt stopped taking medications about 2 weeks ago- restarted 12/27 Problem List As Of Date 05/04/2023 Noted Resolved Thrombocytopenia (HCC) [D69.6] 07/01/2013 Gastropathy [K31.9] Alcoholism (HCC) [F10.20] Gallstones [K80.20] PUD (peptic ulcer disease) [K27.9] GERD (gastroesophageal reflux disease) [K21.9] 11/03/2014 PTSD (post-traumatic stress disorder) [F43.10] 11/03/2014 Bilateral hand numbness [R20.0] 10/22/2016 Cervicalgia [M54.2] 10/22/2016 Chronic neck pain [M54.2, G89.29] 10/22/2016 Sprain of anterior talofibular ligament of righ*07/07/2017 Lateral epicondylitis of left elbow [M77.12] 11/11/2017 Arthralgia of right acromioclavicular joint [M2*04/21/2018 Anxiety [F41.9] 06/14/2018 GI bleed [K92.2] 12/30/2019 01/01/2020 Non compliance with medical treatment [Z91.199] 12/30/2019 Abdominal pain [R10.9] 08/29/2020 Alcoholic cirrhosis of liver without ascites (H*03/01/2022 History of esophageal varices [Z87.19] 03/01/2022 Hypogonadism in male [E29.1] 05/09/2022 Essential hypertension [I10] 08/10/2022 Acute upper GI bleeding [K92.2] 03/30/2023 04/04/2023 Bleeding esophageal varices (HCC) [I85.01] 03/31/2023 04/04/2023 Hematemesis with nausea [K92.0] 03/31/2023 04/11/2023 Alcohol abuse [F10.10] 03/31/2023 Alcohol withdrawal delirium (HCC) [F10.931] 03/31/2023 Upper GI bleed [K92.2] 04/10/2023 04/11/2023 LLQ abdominal pain [R10.32] 04/10/2023 04/11/2023 Hematemesis without nausea [K92.0] 04/10/2023 04/11/2023 Nicotine use disorder, F17.2 [F17.200] 04/10/2023 Acute upper GI bleed [K92.2] 05/02/2023 05/03/2023 Malnutrition of mild degree (HCC) [E44.1] 05/03/2023 GI bleeding [K92.2] 05/03/2023 05/04/2023 Encounter Status:Closed by JANEE MONCADA on 05/04/23 [facility] 05-03-2023 Miscellaneous Notes BEHAVIORAL HEALTH INTAKE NOTE SERVICE DATE: 05/03/23 SERVICE TIME: 4:06pm Nature of the crisis: Detox Presenting Problem: Galindo Snow is a 52 year old male referred by [facility] for alcohol detox. Patient admitted to [facility] medical floor on 05/02/23 for upper GI bleed. Patient medically cleared for transfer to [facility] detox. Patient reported drinking 6-8 tall cans of beer daily for the past month. Last drink was 05/02/23. Patient withdrawal symptoms include agitation, anxiety, nausea, sweats and tremors. Negative for seizures. Negative for delirium tremens. Positive for blackouts. BAL = 391. Patient reported a history of anxiety and depression. Patient denied suicidal/homicidal ideation. Patient is a non-smoker. SOCIAL HISTORY: Social History Tobacco Use Smoking status: Former Years: 14 Types: Cigarettes Start date: 08/06/2000 Smokeless tobacco: Current Types: Chew Vaping Use Vaping Use: Never used Substance Use Topics Alcohol use: Yes Comment: alcoholic Drug use: No MEDICATIONS: pantoprazole DR (PROTONIX) 40 mg tablet^Take 1 tablet by mouth once daily.^Disp: 90 tablet^Rfl: 3 testosterone cypionate (DEPO-TESTOSTERONE) 200 mg/mL injection^Inject 1 mL intramuscularly every 2 weeks for 180 days.^Disp: 2 mL^Rfl: 5 tiZANidine (ZANAFLEX) 4 mg tablet^Take 1 tablet by mouth every 8 hours as needed.^Disp: 90 tablet^Rfl: 1 lactulose 20 gram/30 mL solution^30 mL by ORAL/FEEDING TUBE route three times daily.^Disp: 2700 mL^Rfl: 0 sildenafil (VIAGRA) 100 mg tablet^Take 1 tablet by mouth as needed. 30-60 minutes before sexual intercourse^Disp: 15 tablet^Rfl: 5 lisinopril (ZESTRIL) 40 mg tablet^Take 1 tablet by mouth once daily.^Disp: 90 tablet^Rfl: 3 hydroCHLOROthiazide 12.5 mg capsule^Take 1 capsule by mouth once daily.^Disp: 30 capsule^Rfl: 5 buPROPion XL (WELLBUTRIN XL) 300 mg 24 hr tablet^Take 1 tablet by mouth once daily.^Disp: 30 tablet^Rfl: 11 magnesium oxide (MAG-OX) 400 mg (241.3 mg magnesium) tablet^Take 1 tablet by mouth once daily.^Disp: 90 tablet^Rfl: 3 thiamine (VITAMIN B1) 100 mg tablet^1 tablet by ORAL/FEEDING TUBE route three times daily.^Disp: 270 tablet^Rfl: 3 docusate sodium (COLACE) 100 mg capsule^Take 1 capsule by mouth once daily.^Disp: 90 capsule^Rfl: 3 therapeutic multivitamin-minerals (THERA M PLUS, FERROUS FUMARAT,) 9 mg iron-400 mcg tablet^Take 1 tablet by mouth once daily.^Disp: 30 tablet^Rfl: 2 Medication Comments documented by Lianet Blandon RN on 12/30/2019 at 2348. Pt stopped taking medications about 2 weeks ago- restarted 12/27 MEDICATION COMPLIANCE: Unknown SOCIAL INFORMATION: Provider Stated Diagnosis: F10.20 alcohol use d/o Legal History: No Legal History OBSERVATIONS Level of Consciousness Alert: Yes Orientation: Person, Place, Time, Situation Mood & Affect Observed/Reported: Anxious Non-Suicidal Self Injury Non-Suicidal Self Injury: None Suicidal Ideation Suicidal Ideation: None Homicidal Ideation Homicidal Ideation: None Non-Lethal Harm to Others or Damage/Destruction to Property Harm to Others or Damage/Destruction of Property: None CHEMICAL DEPENDENCY Substance Use: Yes Referral for Substance Abuse Services: Yes Current Chemical Dependency Providers: none Chemical Dependency Inpatient/Residential Treatment History: none Chemical Dependency Outpatient Treatment History: none Toxicology Screen Results: Positive Positive Result: Alcohol Substances Used: Alcohol Reason Needed: Detox Admission [facility]: INTERVENTIONS Sources of Information: Patient, Epic, Current Provider Patient Assessed by Intake via: Telephone Coordination of care with: Internal Behavioral Health Staff Interventions: Medications Medications: Oral Goals/Objectives: Admission to detoxification inpatient services for medical management of withdrawal symptoms DISPOSITION & PLAN: Patient Assessed by Intake via: Telephone Patient stated goals: Goals: To become sober Coordination of Care with: Internal Behavioral Health Staff Assessment/Impressions: Inpatient Need Plan: Secure an inpatient bed Goals/Objectives: Admission to detoxification inpatient services for medical management of withdrawal symptoms Total time spent (minutes) in Supportive Care for this patient: 30 MEDICAL CLEARANCE Initial Date: 05/03/23 Initial Time: 1605 Reviewed medical history with physician: Yes Reviewed abnormal labs with physician: Yes Discussed case with Dr. Babb who states that Galindo Snow is a candidate for admission. Provider Stated Diagnosis: F10.20 alcohol use d/o Admitting Provider: Dr. Babb Admission Status: Full Admit Unit: [facility] Bed#: [id number] Report Given To: Rain Report Date: 05/04/23 Report Time: 131 Admission Type: Voluntary Is Patient Less Than 18 Years of Age or have a Guardian/Healthcare Power of Juvenile Court Liaison?: No Disposition Date: 05/04/23 Disposition Time: 131 SIGNATURE: Cisco Diop PATIENT NAME: Galindo Snow DATE: May 03, 2023 TIME: 4:06 PM documented in this encounter [facility] 05-03-2023 History of Past i llness Narrative Problem Noted Date Diagnosed Date Resolved Date GI bleeding 05/03/2023 05/04/2023 Acute upper GI bleed 05/02/2023 023 Upper GI bleed 04/10/2023 04/11/2023 LLQ abdominal pain 04/10/2023 Hematemesis without nausea 04/10/2023 0 04/11/2023 Bleeding esophageal varices 03/31/2023 04/04/2023 Last Assessment & Plan: octreiotide Hematemesis with nausea 03/31/2023 09/0 02/2023 Last Assessment & Plan: NO FURTHER EPISODES Acute upper GI bleeding 03/30/2023 08/3 08/2022 Last Assessment & Plan: No drop in h/h Gi scope as op ppi GI bleed 12/30/2019 01/01/2020 documented as of this encounter (statuses as of 05/04/2023) [facility]09-29-2023 History of Past illness Narrative* Problem Noted Date Diagnosed Date Resolved Date GI bleeding 05/03/2023 05/04/2023 Acute upper GI bleed 05/02/2023 023 Upper GI bleed 04/10/2023 04/11/2023 LLQ abdominal pain 04/10/2023 Hematemesis without nausea 04/10/2023 0 04/11/2023 Bleeding esophageal varices 03/31/2023 04/04/2023 Last Assessment & Plan: octreiotide Hematemesis with nausea 03/31/2023 09/0 02/2023 Last Assessment & Plan: NO FURTHER EPISODES Acute upper GI bleeding 03/30/2023 08/08/2022 Last Assessment & Plan: No drop in h/h Gi scope as op ppi GI bleed 12/30/2019 01/01/2020 documented as of this encounter (statuses as of 05/04/2023) [facility]09-29-2023 [facility]09-29-2023 NoteHNO ID: [id number] Author: Rosy Poon, GALE Service: Nursing Author Type: Registered Nurse Type: Nursing Progress Note Filed: 05/03/2023 1:51 PM Note Text: Daily note: 1214: Patient off PK3 to Endo 1349[id number]09-18-2023 NoteHNO ID: [id number] Author: BOOKER Ardon Marianne Service: ? Author Type: ? Type: Progress Notes Filed: 04/22/2023 4:25 PM Note Text: Per [facility] Eligibility report: patient meets [facility] criteria: delirium and ICU stay >=72 hours, but found through chart review was never under the care of or seen by [facility]U/pulmonary/critical care staff in the Critical Care ICU during the 03/30- AV admission. Not enrolled in the [facility] Program. [facility] Enrollment Status [facility] Call Attempt None Enrolled in [facility] Program? No - [facility] of Present illness Narrative* BOOKER Ardon Marianne - 04/22/2023 4:25 PM EDT Per [facility] Eligibility report: patient meets [facility] criteria: delirium and ICU stay >=72 hours, but found through chart review was never under the care of or seen by [facility]U/pulmonary/critical care staff in the Critical Care ICU during the 03/30- AV admission. Not enrolled in the [facility] Program. [facility] Enrollment Status [facility] Call Attempt None Enrolled in [facility] Program? No - Does not meet [facility] Criteria [facility] NoteHNO ID: [id number] Author: Juliocesar Reyes PA-C Service: ? Author Type: Physician Bread Pan Greaser Type: Progress Notes Filed: 04/22/2023 3:33 PM Note Text: [facility] This is an in-person visit. DATE OF SERVICE: 04/22/2023 DATE OF LAST VISIT: 03/14/2022 SUBJECTIVE: HPI: Continues with neck pain and headaches. Patient describes headaches located at the back of his head (occipital region). He states that pain and headaches have worsened despite ongoing conservative management. He also describes electrical sensations in his neck. Pain is worsened with ROM without ability to find position of relief or improvement. He feels significant crepitus in cervical spine. Denies radiating arm pain, numbness, tingling, arm weakness, difficulty walking, dexterity issues, significant balance instability or bowel / bladder dysfunction. CMT: -Tylenol -Muscle Relaxants (Zanaflex) -Home Exercise Program (Current) --Provided patient with Home Exercise Program targeted at Cervical Spine at our last office visit (03/2022) --He performs stretching and strengthening exercises 3-4 times weekly -Previously trialed gabapentin (did not tolerate - swelling) PAIN EVALUATION 04/22/2023 1511 Pain Level: 6 Pain Location: Neck Description: Aching;Sharp Duration Units: Years Frequency: Continuous AMBULATORY STATUS: Independent Community Distances ANTIPLATELET OR ANTICOAGULATION STATUS: No PREVIOUS CONSERVATIVE TREATMENTS: SEE HPI REVIEW OF SYSTEMS: GENERAL: No weight loss or malaise MUSCULOSKELETAL: SEE HPI NEURO: No history of headaches, syncope, paralysis, seizures or tremors MEDICATIONS: naltrexone 50 mg tabletTake 1 tablet by mouth once daily.Disp: 30 tabletRfl: 5 testosterone cypionate (DEPO-TESTOSTERONE) 200 mg/mL injectionInject 1 mL intramuscularly every 2 weeks for 180 days.Disp: 2 mLRfl: 5 tiZANidine (ZANAFLEX) 4 mg tabletTake 1 tablet by mouth every 8 hours as needed.Disp: 90 tabletRfl: 1 lactulose 20 gram/30 mL [id number] mL by ORAL/FEEDING TUBE route three times daily.Disp: 2700 mLRfl: 0 sildenafil (VIAGRA) 100 mg tabletTake 1 tablet by mouth as needed. 30-60 minutes before sexual intercourseDisp: 15 tabletRfl: 5 lisinopril (ZESTRIL) 40 mg tabletTake 1 tablet by mouth once daily.Disp: 90 tabletRfl: 3 hydroCHLOROthiazide 12.5 mg capsuleTake 1 capsule by mouth once daily.Disp: 30 capsuleRfl: 5 buPROPion XL (WELLBUTRIN XL) 300 mg 24 hr tabletTake 1 tablet by mouth once daily.Disp: 30 tabletRfl: 11 magnesium oxide (MAG-OX) 400 mg (241.3 mg magnesium) tabletTake 1 tablet by mouth once daily.Disp: 90 tabletRfl: 3 thiamine (VITAMIN B1) 100 mg tablet1 tablet by ORAL/FEEDING TUBE route three times daily.Disp: 270 tabletRfl: 3 docusate sodium (COLACE) 100 mg capsuleTake 1 capsule by mouth once daily.Disp: 90 capsuleRfl: [address] (PROTONIX) 40 mg tabletTake 1 tablet by mouth once daily.Disp: 90 tabletRfl: 3 therapeutic multivitamin-minerals (THERA M PLUS, FERROUS FUMARAT,) 9 mg iron-400 mcg tabletTake 1 tablet by mouth once daily.Disp: 30 tabletRfl: 2 ciprofloxacin HCl (CIPRO) 500 mg tabletTake 1 tablet by mouth twice daily.Disp: 6 tabletRfl: 0 (Patient not taking: Reported on 04/16/2023) Patient Entered Questionnaires PROMIS Score Percentiles PROMIS Global Health Scale 09/30/2020 04/27/2022 07/04/2022 Physical Health Percentile 78 53 53 Mental Health Percentile 34 26* 26* Percentiles provide an indication of how the patient's score ranks in relation to the general population. Higher percentile rankings indicate better function/quality of life. 50th percentile is the average of the general population and indicates half of respondents had a worse score. Depression Screening: PHQ-9 05/31/2015 07/04/2022 Score 1 0 PHQ-9 Self-harm Question 05/31/2015 07/04/2022 Thoughts that you would be better off , or of hurting yourself in some way 0 0 PHQ-9 Self-Harm (Item 9) response options: 0 Not at all 1 Several days 2 More than half the days 3 Nearly every day PHQ-9 Levels: 0-4 No to mild depression 5-9 Mild depression 10-14 Moderate depression 15-19 Moderately severe depression 20-27 Severe depression OBJECTIVE: PHYSICAL EXAM: BP 143/60 Pulse 81 Wt 171 lb (77.6kg) GENERAL APPEARANCE: Well nourished, well developed, and no apparent distress. NEURO PSYCH: Patient oriented to person, place, and time. Mood pleasant. Benign affect. MUSCULOSKELETAL VISUAL INSPECTION CERVICAL: WNL THORACIC: WNL LUMBAR: WNL MOTOR: 5/5 in all muscle groups. SENSORY: Normal sensory exam GAIT: Normal. DATA REVIEW:Diagnostic tests reviewed for today's visit, films/specimens were personally reviewed by me: [facility] records independently reviewed Images independently reviewed with the patient ASSESSMENT/PLAN (M48.02) Spinal stenosis of cervical region (primary encounter diagnosis) (M54.2) Neck pain (M47.812) CS (cervical s (more content not included)...[facility] NotePatient Outreach (P[facility]) GALINDO SNOW ([id number]) 1970 M Date Time Provider Department 04/22/23 MISTI ARDON During your visit today, we recorded the following information about you: BOOKER Ardon Marianne 04/22/2023 4:25 PM Signed Per [facility] Eligibility report: patient meets [facility] criteria: delirium and ICU stay >=72 hours, but found through chart review was never under the care of or seen by [facility]/pulmonary/critical care staff in the Critical Care ICU during the 03/30- AV admission. Not enrolled in the [facility] Program. [facility] Enrollment Status [facility] Call Attempt None Enrolled in [facility] Program? No - Does not meet [facility] Criteria Allergies As of Date: 04/22/2023 Noted Allergy Reaction DILAUDID (HYDROMORPHONE (BULK)) 11/03/2014 1 - Mental Status Change 9 - Itching Date Reviewed: 04/22/2023 Reviewed by: Althea Rosales, CT - Fully Assessed Prescriptions as of 04/22/2023 - naltrexone 50 mg tablet Take 1 tablet by mouth once daily. - testosterone cypionate (DEPO-TESTOSTERONE) 200 mg/mL injection Inject 1 mL intramuscularly every 2 weeks for 180 days. - tiZANidine (ZANAFLEX) 4 mg tablet Take 1 tablet by mouth every 8 hours as needed. - ciprofloxacin HCl (CIPRO) 500 mg tablet Take 1 tablet by mouth twice daily. - lactulose 20 gram/30 mL solution 30 mL by ORAL/FEEDING TUBE route three times daily. - sildenafil (VIAGRA) 100 mg tablet Take 1 tablet by mouth as needed. 30-60 minutes before sexual intercourse - lisinopril (ZESTRIL) 40 mg tablet Take 1 tablet by mouth once daily. - hydroCHLOROthiazide 12.5 mg capsule Take 1 capsule by mouth once daily. - buPROPion XL (WELLBUTRIN XL) 300 mg 24 hr tablet Take 1 tablet by mouth once daily. - magnesium oxide (MAG-OX) 400 mg (241.3 mg magnesium) tablet Take 1 tablet by mouth once daily. - thiamine (VITAMIN B1) 100 mg tablet 1 tablet by ORAL/FEEDING TUBE route three times daily. - docusate sodium (COLACE) 100 mg capsule Take 1 capsule by mouth once daily. - pantoprazole DR (PROTONIX) 40 mg tablet Take 1 tablet by mouth once daily. - therapeutic multivitamin-minerals (THERA M PLUS, FERROUS FUMARAT,) 9 mg iron-400 mcg tablet Take 1 tablet by mouth once daily. Facility-Administered Medications as of 04/22/2023 - testosterone cypionate 200 mg injection (DEPO-TESTOSTERONE) Meds Comments as of 12/30/2019: Pt stopped taking medications about 2 weeks ago- restarted 12/27 Problem List As Of Date 04/22/2023 Noted Resolved Thrombocytopenia (HCC) [D69.6] 07/01/2013 Gastropathy [K31.9] Alcoholism (HCC) [F10.20] Gallstones [K80.20] PUD (peptic ulcer disease) [K27.9] GERD (gastroesophageal reflux disease) [K21.9] 11/03/2014 PTSD (post-traumatic stress disorder) [F43.10] 11/03/2014 Bilateral hand numbness [R20.0] 10/22/2016 Cervicalgia [M54.2] 10/22/2016 Chronic neck pain [M54.2, G89.29] 10/22/2016 Sprain of anterior talofibular ligament of righ*07/07/2017 Lateral epicondylitis of left elbow [M77.12] 11/11/2017 Arthralgia of right acromioclavicular joint [M2*04/21/2018 Anxiety [F41.9] 06/14/2018 GI bleed [K92.2] 12/30/2019 01/01/2020 Non compliance with medical treatment [Z91.199] 12/30/2019 Abdominal pain [R10.9] 08/29/2020 Alcoholic cirrhosis of liver without ascites (H*03/01/2022 History of esophageal varices [Z87.19] 03/01/2022 Hypogonadism in male [E29.1] 05/09/2022 Essential hypertension [I10] 08/10/2022 Acute upper GI bleeding [K92.2] 03/30/2023 04/04/2023 Bleeding esophageal varices (HCC) [I85.01] 03/31/2023 04/04/2023 Hematemesis with nausea [K92.0] 03/31/2023 04/11/2023 Alcohol abuse [F10.10] 03/31/2023 Alcohol withdrawal delirium (HCC) [F10.931] 03/31/2023 Upper GI bleed [K92.2] 04/10/2023 04/11/2023 LLQ abdominal pain [R10.32] 04/10/2023 04/11/2023 Hematemesis without nausea [K92.0] 04/10/2023 04/11/2023 Nicotine use disorder, F17.2 [F17.200] 04/10/2023 Encounter Status:Closed by BOOKER ARDON MARIANNE on 04/22/23[facility] NoteHNO ID: [id number] Author: Terese Jack MD Service: ? Author Type: Physician Type: Progress Notes Filed: 04/16/2023 6:35 PM Note Text: Transitional Care Management TCM Eligibility Documentation The following information was gathered during the initial Patient Outreach Encounter. Date of Outreach: 04/12/2023 04/05/2023 Outreach Attempt 1: Contact Not Made Contact Not Made Outreach Attempt 2: Contact Not Made Contact Made Date of Discharge 04/11/2023 04/04/2023 Some recent data might be hidden Provider Documentation Galindo Snow is a 52 year old male here today for a follow up from recent hospitalization. I have reviewed the patient's hospital course including discharge summary, discharge medications , and follow up needs with the patient and any family members present at today's visit. HPI Patient was hospitalized with an upper GI bleed in the setting of relapse of alcoholism. Remains sober since he has been out. Is not in any kind of support groups or psychology. Is not willing to go to any support groups. Is willing to try a medication to help with alcohol cessation. Patient would like to get intramuscular injection today for testosterone. Is overdue for injection. Would like to consider getting back on every 2 weeks dosage as the every 3 weeks dosage was leading to lower energy levels and more fatigue. Continues to have chronic neck pain. PHYSICAL EXAMINATION BP 136/75 Pulse 67 Resp 18 Wt 77.6 kg (171 lb 1.6 oz) BMI 24.55 kg/m? GENERAL: well appearing, alert, in no acute distress HEART: regular rate and rhythm. No murmur, rubs or gallops. LUNGS: clear to auscultation, no wheezing, rhonchi, or crackles ABDOMEN: soft, non-tender, non-distended, no masses or organomegaly EXTREMITIES: no lower extremity edema. No skin discoloration. ASSESSMENT/PLAN: 1. Moderate alcohol use disorder, in early remission (HCC) - ICD9: 303.93, ICD10: F10.21 (primary diagnosis) Shared decision made to start naltrexone. Patient counseled on pros/cons/side effects of medication. Declined other social insurance administrator for assistance with sobriety. - NALTREXONE 50 MG TABLET 2. Hospital discharge follow-up - ICD9: V67.59, ICD10: Z09 - I have reviewed the patient record including associated test results during the last hospitalization Yes - I have reviewed Lab tests Yes - I have reviewed Radiology tests Yes - I have reviewed Assessment/Plan with patient/family member Yes 3. Hypogonadism in male - ICD9: 257.2, ICD10: E29.1 Okay to get injection today. Okay to increase frequency to every 2 weeks for intramuscular injection. We will continue to monitor levels and symptoms. - TESTOSTERONE CYPIONATE 200 MG/ML INTRAMUSCULAR OIL - TESTOSTERONE CYPIONATE 200 MG/ML INTRAMUSCULAR OIL - COMP METABOLIC PANEL - CBC - TESTOSTERONE TOTAL - TESTOSTERONE CYPIONATE 200 MG/ML INTRAMUSCULAR OIL 4. Chronic neck pain - ICD9: 723.1, 338.29, ICD10: M54.2, G89.29 - CONSULT TO PHYSICAL THERAPY Return to clinic in 2 months Luke Jack [facility]09-12-2023 History of Present illness Narrative* Terese Jack MD - 04/16/2023 9:03 AM EDT Transitional Care Management TCM Eligibility Documentation The following information was gathered during the initial Patient Outreach Encounter. Date of Outreach: 04/12/2023 04/05/2023 Outreach Attempt 1: Contact Not Made Contact Not Made Outreach Attempt 2: Contact Not Made Contact Made Date of Discharge 04/11/2023 04/04/2023 Some recent data might be hidden Provider Documentation Galindo Snow is a 52 year old male here today for a follow up from recent hospitalization. I havereviewed the patient's hospital course including discharge summary, discharge medications , and follow up needs with the patient and any family members present at today's visit. HPI Patient was hospitalized with an upper GI bleed in the setting of relapse of alcoholism. Remains sober since he has been out. Is not in any kind of support groups or psychology. Is not willing to go to any support groups. Is willing to try a medication to help with alcohol cessation. Patient would like to get intramuscular injection today for testosterone. Is overdue for injection. Would like to consider getting back on every 2 weeks dosage as the every 3 weeks dosage was leadingto lower energy levels and more fatigue. Continues to have chronic neck pain. PHYSICAL EXAMINATION BP 136/75 Pulse 67 Resp 18 Wt 77.6 kg (171 lb 1.6 oz) BMI 24.55 kg/m GENERAL: well appearing, alert, in no acute distress HEART: regular rate and rhythm. No murmur, rubs or gallops. LUNGS: clear to auscultation, no wheezing, rhonchi, or crackles ABDOMEN: soft, non-tender, non-distended, no masses or organomegaly EXTREMITIES: no lower extremity edema. No skin discoloration. ASSESSMENT/PLAN: 1. Moderate alcohol use disorder, in early remission (HCC) - ICD9: 303.93, ICD10: F10.21 (primary diagnosis) Shared decision made to start naltrexone. Patient counseled on pros/cons/side effects of medication. Declined other social insurance administrator for assistance with sobriety. - NALTREXONE 50 MG TABLET 2. Hospital discharge follow-up - ICD9: V67.59, ICD10: Z09 - I have reviewed the patient record including associated test results during the last hospitalization Yes - I have reviewed Lab tests Yes - I have reviewed Radiology tests Yes - I have reviewed Assessment/Plan with patient/family member Yes 3. Hypogonadism in male - ICD9: 257.2, ICD10: E29.1 Okay to get injection today. Okay to increase frequency to every 2 weeks for intramuscular injection. We will continue to monitor levels and symptoms. - TESTOSTERONE CYPIONATE 200 MG/ML INTRAMUSCULAR OIL - TESTOSTERONE CYPIONATE 200 MG/ML INTRAMUSCULAR OIL - COMP METABOLIC PANEL - CBC - TESTOSTERONE TOTAL - TESTOSTERONE CYPIONATE 200 MG/ML INTRAMUSCULAR OIL 4. Chronic neck pain - ICD9: 723.1, 338.29, ICD10: M54.2, G89.29 - CONSULT TO PHYSICAL THERAPY Return to clinic in 2 months Luke Jack MD [facility] NoteHNO ID: [id number] Author: Janee Moncada RN Service: ? Author Type: Registered Nurse Type: Progress Notes Filed: 04/12/2023 3:10 PM Note Text: TRANSITIONAL CARE MANAGEMENT (TCM) COMMUNITY MONITORING PROGRAM Provider Action/FYI: Attempted to contact patient for hospital discharge follow up, left a message. Encouraged patient to call with any needs or concerns, reminded of upcoming appt Follow up scheduled with PCP for 04/16 SUMMARY: Discharge Network Status: In-Network Discharge Pt discharged from [facility] on 04/11. Admitted for: Upper GI bleed Contact made with patient: No - 2nd unsuccessful attempt - end outreach and close encounter Outreach ended Janee VALLE, MSN Care Coordination-[facility]09-08-2023 History of Present illness Narrative* Janee Moncada RN - 04/12/2023 3:06 PM EDT TRANSITIONAL CARE MANAGEMENT (TCM) COMMUNITY MONITORING PROGRAM Provider Action/FYI: Attempted to contact patient for hospital discharge follow up, left a message. Encouraged patient to call with any needs or concerns, reminded of upcoming appt Follow up scheduled with PCP for 04/16 SUMMARY: Discharge Network Status: In-Network Discharge Pt discharged from [facility] on 04/11. Admitted for: Upper GI bleed Contact made with patient: No - 2nd unsuccessful attempt - end outreach and close encounter Outreach ended Janee ISLASBC, MSN Care Coordination-[facility] * Janee Moncada RN - 04/12/2023 9:04 AM EDT TCM Home Visit Referral Source of Stratification: [facility] Hospital Admission Status: Discharged Readmission Risk Score: 17 FAVIAN Score: 23 Patient meets program referral criteria: No Patient does not qualify for High Risk TCM Home Visit program due to: Discharged home, does not meet program criteria TRANSITIONAL CARE MANAGEMENT (TCM) COMMUNITY MONITORING PROGRAM Provider Action/FYI: Attempted to contact patient for hospital discharge follow up, left a message. Will attempt anotherpatient outreach SUMMARY: Discharge Network Status: In-Network Discharge Pt discharged from [facility] on 04/11. Admitted for: Upper GI bleed Contact made with patient: No - next outreach attempt will be on next business day Outreach ended Janee VALLE, MSN Care Coordination-[facility] documented in [facility] encounterOur [facility]23 NoteHNO ID: [id number] Author: Janee Moncada RN Service: ? Author Type: Registered Nurse Type: Progress Notes Filed: 04/12/2023 3:10 PM Note Text: TCM Home Visit Referral Source of Stratification: [facility] Admission Status: Discharged Readmission Risk Score: 17 FAVIAN Score: 23 Patient meets program referral criteria: No Patient does not qualify for High Risk TCM Home Visit program due to: Discharged home, does not meet program criteria TRANSITIONAL CARE MANAGEMENT (TCM) COMMUNITY MONITORING PROGRAM Provider Action/FYI: Attempted to contact patient for hospital discharge follow up, left a message. Will attempt another patient outreach SUMMARY: Discharge Network Status: In-Network Discharge Pt discharged from [facility] on 04/11. Admitted for: Upper GI bleed Contact made with patient: No - next outreach attempt will be on next business day Outreach ended Janee VALLE, MSN Care Coordination-[facility]09-08-2023 NotePatient Outreach ([facility]) GALINDO SNOW ([id number]) 1970 M Date Time Provider Department 04/12/23 JANEE MONCADA During your visit today, we recorded the following information about you: Janee Moncada RN 04/12/2023 3:10 PM Signed TCM Home Visit Referral Source of Stratification: [facility] Admission Status: Discharged Readmission Risk Score: 17 FAVIAN Score: 23 Patient meets program referral criteria: No Patient does not qualify for High Risk TCM Home Visit program due to: Discharged home, does not meet program criteria TRANSITIONAL CARE MANAGEMENT (TCM) COMMUNITY MONITORING PROGRAM Provider Action/FYI: Attempted to contact patient for hospital discharge follow up, left a message. Will attempt another patient outreach SUMMARY: Discharge Network Status: In-Network Discharge Pt discharged from [facility] on 04/11. Admitted for: Upper GI bleed Contact made with patient: No - next outreach attempt will be on next Outreach ended Janee VALLE, MSN Care Coordination-[facility] Janee Moncada RN 04/12/2023 3:10 PM Signed TRANSITIONAL CARE MANAGEMENT (TCM) COMMUNITY MONITORING PROGRAM Provider Action/FYI: Attempted to contact patient for hospital discharge follow up, left a message. Encouraged patient to call with any needs or concerns, reminded of upcoming appt Follow up scheduled with PCP for 04/16 SUMMARY: Discharge Network Status: In-Network Discharge Pt discharged from [facility] on 04/11. Admitted for: Upper GI bleed Contact made with patient: No - 2nd unsuccessful attempt - end outreach and close encounter Outreach ended Janee VALLE, MSN Care Coordination-[facility] Allergies As of Date: 04/12/2023 Noted Allergy Reaction DILAUDID (HYDROMORPHONE (BULK)) 11/03/2014 1 - Mental Status Change 9 - Itching Date Reviewed: 04/11/2023 Reviewed by: Myla Sen, GALE - Fully Assessed Reason for Visit: Transition Of Care [4074] Cmt: [facility] Hospital Discharge 04/11 Prescriptions as of 04/12/2023 - tiZANidine (ZANAFLEX) 4 mg tablet Take 1 tablet by mouth every 8 hours as needed. - testosterone cypionate (DEPO-TESTOSTERONE) 200 mg/mL injection Inject 1 mL intramuscularly every 3 weeks for 90 days. - ciprofloxacin HCl (CIPRO) 500 mg tablet Take 1 tablet by mouth twice daily. - lactulose 20 gram/30 mL solution 30 mL by ORAL/FEEDING TUBE route three times daily. - sildenafil (VIAGRA) 100 mg tablet Take 1 tablet by mouth as needed. 30-60 minutes before sexual intercourse - lisinopril (ZESTRIL) 40 mg tablet Take 1 tablet by mouth once daily. - hydroCHLOROthiazide 12.5 mg capsule Take 1 capsule by mouth once daily. - buPROPion XL (WELLBUTRIN XL) 300 mg 24 hr tablet Take 1 tablet by mouth once daily. - magnesium oxide (MAG-OX) 400 mg (241.3 mg magnesium) tablet Take 1 tablet by mouth once daily. - thiamine (VITAMIN B1) 100 mg tablet 1 tablet by ORAL/FEEDING TUBE route three times daily. - docusate sodium (COLACE) 100 mg capsule Take 1 capsule by mouth once daily. - pantoprazole DR (PROTONIX) 40 mg tablet Take 1 tablet by mouth once daily. - therapeutic multivitamin-minerals (THERA M PLUS, FERROUS FUMARAT,) 9 mg iron-400 mcg tablet Take 1 tablet by mouth once daily. Facility-Administered Medications as of 04/12/2023 - testosterone cypionate 200 mg injection (DEPO-TESTOSTERONE) Meds Comments as of 12/30/2019: Pt stopped taking medications about 2 weeks ago- restarted 12/27 Problem List As Of Date 04/12/2023 Noted Resolved Thrombocytopenia (HCC) [D69.6] 07/01/2013 Gastropathy [K31.9] Alcoholism (HCC) [F10.20] Gallstones [K80.20] PUD (peptic ulcer disease) [K27.9] GERD (gastroesophageal reflux disease) [K21.9] 11/03/2014 PTSD (post-traumatic stress disorder) [F43.10] 11/03/2014 Bilateral hand numbness [R20.0] 10/22/2016 Cervicalgia [M54.2] 10/22/2016 Chronic neck pain [M54.2, G89.29] 10/22/2016 Sprain of anterior talofibular ligament of righ*07/07/2017 Lateral epicondylitis of left elbow [M77.12] 11/11/2017 Arthralgia of right acromioclavicular joint [M2*04/21/2018 Anxiety [F41.9] 06/14/2018 GI bleed [K92.2] 12/30/2019 01/01/2020 Non compliance with medical treatment [Z91.199] 12/30/2019 Abdominal pain [R10.9] 08/29/2020 Alcoholic cirrhosis of liver without ascites (H*03/01/2022 History of esophageal varices [Z87.19] 03/01/2022 Hypogonadism in male [E29.1] 05/09/2022 Essential hypertension [I10] 08/10/2022 Acute upper GI bleeding [K92.2] 03/30/2023 04/04/2023 Bleeding esophageal varices (HCC) [I85.01] 03/31/2023 04/04/2023 Hematemesis with nausea [K92.0] 03/31/2023 04/11/2023 Alcohol abuse [F10.10] 03/31/2023 Alcohol withdrawal delirium (HCC) [F10.931] 03/31/2023 Upper GI bleed [K92.2] 04/10/2023 04/11/2023 LLQ abdominal pain [R10.32] 04/10/2023 04/11/2023 Hematemesis without nausea [K92.0] 04/10/2023 (more content not included)...[facility]09-07-2023 Miscellaneous Notes* Telephone Encounter - Ashley Abreu RN - 04/11/2023 4:22 PM EDT Please provide an order for testerone injection for upcoming nurse visit on 04/22/23. Thank you documented in this encounterOur [facility] 04-10-2023 [facility]09-06-2023 History of Past illness Narrative* Problem Noted Date Diagnosed Date Resolved Date Upper GI bleed 04/10/2023 04/11/2023 LLQ abdominal pain 04/10/2023 Hematemesis without nausea 04/10/2023 0 04/11/2023 Bleeding esophageal varices 03/31/2023 04/04/2023 Last Assessment & Plan: octreiotide Hematemesis with nausea 03/31/2023 09/0 02/2023 Last Assessment & Plan: NO FURTHER EPISODES Acute upper GI bleeding 03/30/2023 08/3 08/2022 Last Assessment & Plan: No drop in h/h Gi scope as op ppi GI bleed 12/30/2019 01/01/2020 documented as of this encounter (statuses as of 04/12/2023) [facility] History of Past illness Narrative* Problem Noted Date Diagnosed Date Resolved Date Upper GI bleed 04/10/2023 04/11/2023 LLQ abdominal pain 04/10/2023 Hematemesis without nausea 04/10/2023 0 04/11/2023 Bleeding esophageal varices 03/31/2023 04/04/2023 Last Assessment & Plan: octreiotide Hematemesis with nausea 03/31/2023 09/0 02/2023 Last Assessment & Plan: NO FURTHER EPISODES Acute upper GI bleeding 03/30/202303/07 Last Assessment & Plan: No drop in h/h Gi scope as op ppi GI bleed 12/30/2019 01/01/2020 documented as of this encounter (statuses as of 04/12/2023) [facility] History of Past illness Narrative* Problem Noted Date Diagnosed Date Resolved Date Upper GI bleed 04/10/2023 04/11/2023 LLQ abdominal pain 04/10/2023 Hematemesis without nausea 04/10/2023 0 04/11/2023 Bleeding esophageal varices 03/31/2023 04/04/2023 Last Assessment & Plan: octreiotide Hematemesis with nausea 03/31/2023 09/0 02/2023 Last Assessment & Plan: NO FURTHER EPISODES Acute upper GI bleeding 03/30/202303/07 Last Assessment & Plan: No drop in h/h Gi scope as op ppi GI bleed 12/30/2019 01/01/2020 documented as of this encounter (statuses as of 04/17/2023) [facility] History of Past illness Narrative* Problem Noted Date Diagnosed Date Resolved Date Upper GI bleed 04/10/2023 04/11/2023 LLQ abdominal pain 04/10/2023 Hematemesis without nausea 04/10/2023 0 04/11/2023 Bleeding esophageal varices 03/31/2023 04/04/2023 Last Assessment & Plan: octreiotide Hematemesis with nausea 03/31/2023 09/0 02/2023 Last Assessment & Plan: NO FURTHER EPISODES Acute upper GI bleeding 03/30/202303/07 Last Assessment & Plan: No drop in h/h Gi scope as op ppi GI bleed 12/30/2019 01/01/2020 documented as of this encounter (statuses as of 04/23/2023) [facility] NoteHNO ID: [id number] Author: Jessica Population Health NavigJanee cooper Service: ? Author Type: ? Type: Progress Notes Filed: 04/09/2023 10:52 AM Note Text: POPULATION HEALTH NAVIGATION OUTREACH Action/FYI Patient left me a voicemail returning call - Patient was already contacted this morning for 2nd attempt to schedule appt and message was left for patient again. Patient Identified by Name and : NO Outreach Outcome/Action Patient already contacted this morning and message was left Did you use a PCP flex slot to schedule this appointment? N/A INFLUENZA(1) due on 04/05/2023 Navigation Signature: Janee Lopez Population Health Navigator April 09, 2023 10:50 [facility]09-05-2023 Miscellaneous Notes* Telephone Encounter - Tana Muller - 04/09/2023 9:19 AM EDT Awaiting signed orders * Telephone Encounter - Alissa Perez - 04/05/2023 11:01 AM EDT Will call when order is signed * Telephone Encounter - Alissa Perez - 04/04/2023 4:22 PM EDT Will call when discharged * Telephone Encounter - Marlene Evans APRN.CNP - 04/04/2023 4:14 PM EDT Please arrange OP EGD/AV w/ Mac for hx liver cirrhosis/screening w/ Dr. Mabry. Thank you Marlene documented in this encounterOur Lady Of [facility]23 NoteHNO ID: [id number] Author: Terese Jack MD Service: ? Author Type: Physician Type: Progress Notes Filed: 04/09/2023 9:02 AM Note Text: [facility] NoteHNO ID: [id number] Author: Karlene Escobedo MA Service: ? 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 Admitted for: Hematemesis TCM Eligible through 04/19/2023 Left second message for the patient to return my call. Karlene Escobedo MA Patient Identified by Name and : NO Outreach Outcome/Action Unable to reach patient: Left message Did you use a PCP flex slot to schedule this appointment? N/A Navigation Signature: Karlene Escobedo MA April 09, 2023 8:51 [facility]09-01-2023 NoteHNO ID: [id number] Author: Jessica Population Health NavigatorJanee Service: ? Author Type: ? Type: Progress Notes Filed: 04/05/2023 2:19 PM Note Text: POPULATION HEALTH NAVIGATION OUTREACH Action/ 1st attempt- lvm/sent mychart to schedule TCM follow up appt with pcp. TCM Eligible until 04/18/23 discharged from [facility] on 04/04/23. Admitted for: Hematemesis Postponed message x2 days- will attempt call again Patient Identified by Name and : NO Outreach Outcome/Action Unable to reach patient: Left message MyChart message sent Did you use a PCP flex slot to schedule this appointment? N/A Reason for Outreach [facility] Payer: Payor: MMO / Plan: MMO SUPERMED PPO / Product Type: PPO / Care Gap Reviewed:: Follow-up appointment Reminder: Reminder note to check Health Maintenance for items below Health Maintenance items due: HEPATITIS B(1 of 3 - 3-dose series) Never done PNEUMOCOCCAL(1 - PCV) Never done BP CONTROLLED (<130/80) Never done HEPATITIS A(1 of 2 - Risk 2-dose series) Never done SHINGRIX VACCINE(1 of 2) Never done DEPRESSION ASSESSMENT Never done INFLUENZA(1) due on 04/05/2023 Navigation Signature: Janee Lopez Population Health Navigator April 05, 2023 2:18 [facility]09-01-2023 History of Present illness Narrative* Jessica Population Health Navigator, Janee Acosta - 04/05/2023 2:18 PM EDT POPULATION HEALTH NAVIGATION OUTREACH Action/ 1st attempt- lvm/sent mychart to schedule TCM follow up appt with pcp. TCM Eligible until 04/18/23 discharged from [facility] on 04/04/23. Admitted for: Hematemesis Postponed message x2 days- will attempt call again Patient Identified by Name and : NO Outreach Outcome/Action Unable to reach patient: Left message MyChart message sent Did you use a PCP flex slot to schedule this appointment? N/A Reason for Outreach [facility] Payer: Payor: MMO / Plan: MMO SUPERMED PPO / Product Type: PPO / Care Gap Reviewed:: Follow-up appointment Reminder: Reminder note to check Health Maintenance for items below Health Maintenance items due: HEPATITIS B(1 of 3 - 3-dose series) Never done PNEUMOCOCCAL(1 - PCV) Never done BP CONTROLLED (<130/80) Never done HEPATITIS A(1 of 2 - Risk 2-dose series) Never done SHINGRIX VACCINE(1 of 2) Never done DEPRESSION ASSESSMENT Never done INFLUENZA(1) due on 04/05/2023 Navigation Signature: Janeedang Lopez [facility] Navigator April 05, 2023 2:18 PM * Kelly Gonzalez RN - 04/05/2023 1:50 PM EDT TCM Home Visit Referral Source of Stratification: [facility] Hospital Admission Status: Discharged Readmission Risk Score: 19 FAVIAN Score: 25 Patient meets program referral criteria: No Patient does not qualify for High Risk TCM Home Visit program due to: Discharged home, does not meet program criteria Kelly Gonzalez RN April 05, 2023 1:51 PM TRANSITIONAL CARE MANAGEMENT (TCM) COMMUNITY MONITORING PROGRAM Provider Action/FYI: Patient returning call Patient needs GI F/U Navigation Team Please assist with scheduling [facility] Hospital Discharge Follow up. TCM Eligible until 04/18/23 Thank you Pt states he is feeling better. Taking new rx Lactulose. No further episodes of coughing up blood. Denies CP or acute pain, SOB, N/V, fever or chills Voiding without difficulty BM - yes moving bowels Ambulating ad scooby Appetite is good, eating and hydrating Admits he has had alcohol since he was discharged patient F/U with his to be sure he has rx Protonix at home. Reviewed hospital D/C transition issues, upcoming appts, new meds Encouraged daily B/P, Pulse, weight, Pulse ox , temp monitoring, adequate fluid intake, encouraged patient to abstain from drinking alcohol Encouraged patient to contact office sooner for any new/worsening symptoms/concerns. Transitions of Care Critical Issues: SPECIALIST FOLLOW-UP: Follow up w/ GI to schedule outpatient EGD. Start: Lactulose SUMMARY: Discharge Network Status: In-Network Discharge Pt discharged from [facility] on 04/04/23. Admitted for: Hematemesis Contact made with patient: Yes Hi my name is Kelly Gonzalez RN and I am calling from the [facility] on behalf of your PCP, Terese Jack MD I understand you were recently in the hospital so I am calling to check in with you to ensure you are feeling well now that you're home. May I ask you a few questions related to your hospital stay and well-being? Yes Contact with patient post discharge, spoke to patient. Patient identified by name and . Do you feel your health is BETTER, WORSE, or the SAME since leaving the hospital? Better ACTION TAKEN: Patient indicated symptoms are better or same, no action required. Continue outreach. MEDICATIONS: Many patients have questions or concerns about their medications once they are home. Do you have any questions about taking your medications or which medication you should be on? No Do you need any medication refills at this time, including any of the medications you might take only when needed? No ACTION TAKEN: No action required For RNs or Pharmacy completing outreach ONLY, was a medication review completed? Yes SOCIAL: We would like to make sure you have what you need so that your basics needs are met - including your personal safety, food, housing and medications. Would you like to speak with a social work cleaning team member to help give you support for any of these needs? No It can be normal to feel anxious or down during a time like this. Would you like to talk to a mental health professional about how you have been feeling? No ACTION TAKEN: No action taken DISCHARGE INTRUCTIONS: Your discharge instructions / After Visit Summary (AVS) are important in guiding you through the recovery process. Do you have any questions related to your discharge instructions? No Do you have all the necessary equipment and supplies at home? Yes ACTION TAKEN: No action required I would like to help you schedule a hospital follow-up virtual or telephone visit with your PCP. This is a great way for you to connect with your provider to ensure you have safely transitioned home.If you are agreeable, I will send your request to a petroleum engineer who will contact and assist you with that appointment. This will give you an opportunity to ask any questions or address any concerns youmay have with your PCP. Inform the patient that if they have any questions or concerns prior to that appointment, to call their PCP's office right away. ACTION TAKEN: Patient desires an appointment - Routed to [facility] [[phone]] for schedulingtelehealth visit (telephonic, virtual visit, or Facetime) within 7 days of discharge with PCP care team. Indicate hospital follow-up appointment needed within 7 days in Provider/FYI box. End Outreach. Your doctor would like us to remind you of the recommendations regarding the coronavirus (Covid19) outbreak: Avoid public places as much as possible. Avoid close contact (within 6 feet) with others you don t live with, especially if they are sick. Stay home if you are sick. Wash your hands regularly for at least 20 seconds with soap and water. Wear a cloth mask in public places to help reduce community spread. Do not go to your Doctor s office unless instructed to do so. For any non- emergency symptoms, call your Doctor s office to get instructions on how to manage (we might recommend a telephone or virtualvisit). For emergency symptoms, proceed to Emergency Department as usual but inform them of cough and fever symptoms KELI if present (or call on the way if possible). [place] Education Ordered -: No Kelly QUARLES, RN, [facility] Primary Care Transitional [employer] Worker [facility] [phone] [facility] NoteHNO ID: [id number] Author: Kelly Gonzalez RN Service: ? Author Type: Registered Nurse Type: Progress Notes Filed: 04/05/2023 2:13 PM Note Text: TCM Home Visit Referral Source of Stratification: [facility] Hospital Admission Status: Discharged Readmission Risk Score: 19 FAVIAN Score: 25 Patient meets program referral criteria: No Patient does not qualify for High Risk TCM Home Visit program due to: Discharged home, does not meet program criteria Kelly Gonzalez RN April 05, 2023 1:51 PM TRANSITIONAL CARE MANAGEMENT (TCM) COMMUNITY MONITORING PROGRAM Provider Action/FYI: Patient returning call Patient needs GI F/U Navigation Team Please assist with scheduling [facility] Hospital Discharge Follow up. TCM Eligible until 04/18/23 Thank you Pt states he is feeling better. Taking new rx Lactulose. No further episodes of coughing up blood. Denies CP or acute pain, SOB, N/V, fever or chills Voiding without difficulty BM - yes moving bowels Ambulating ad scooby Appetite is good, eating and hydrating Admits he has had alcohol since he was discharged patient F/U with his to be sure he has rx Protonix at home. Reviewed hospital D/C transition issues, upcoming appts, new meds Encouraged daily B/P, Pulse, weight, Pulse ox , temp monitoring, adequate fluid intake, encouraged patient to abstain from drinking alcohol Encouraged patient to contact office sooner for any new/worsening symptoms/concerns. Transitions of Care Critical Issues: SPECIALIST FOLLOW-UP: Follow up w/ GI to schedule outpatient EGD. Start: Lactulose SUMMARY: Discharge Network Status: In-Network Discharge Pt discharged from [facility] on 04/04/23. Admitted for: Hematemesis Contact made with patient: Yes Hi my name is Kelly Gonzalez RN and I am calling from the [facility] on behalf of your PCP, Terese Jack MD I understand you were recently in the hospital so I am calling to check in with you to ensure you are feeling well now that you're home. May I ask you a few questions related to your hospital stay and well-being? Yes Contact with patient post discharge, spoke to patient. Patient identified by name and . Do you feel your health is BETTER, WORSE, or the SAME since leaving the hospital? Better ACTION TAKEN: Patient indicated symptoms are better or same, no action required. Continue outreach. MEDICATIONS: Many patients have questions or concerns about their medications once they are home. Do you have any questions about taking your medications or which medication you should be on? No Do you need any medication refills at this time, including any of the medications you might take only when needed? No ACTION TAKEN: No action required For RNs or Pharmacy completing outreach ONLY, was a medication review completed? Yes SOCIAL: We would like to make sure you have what you need so that your basics needs are met - including your personal safety, food, housing and medications. Would you like to speak with a social work cleaning team member to help give you support for any of these needs? No It can be normal to feel anxious or down during a time like this. Would you like to talk to a mental health professional about how you have been feeling? No ACTION TAKEN: No action taken DISCHARGE INTRUCTIONS: Your discharge instructions / After Visit Summary (AVS) are important in guiding you through the recovery process. Do you have any questions related to your discharge instructions? No Do you have all the necessary equipment and supplies at home? Yes ACTION TAKEN: No action required I would like to help you schedule a hospital follow-up virtual or telephone visit with your PCP. This is a great way for you to connect with your provider to ensure you have safely transitioned home. If you are agreeable, I will send your request to a petroleum engineer who will contact and assist you with that appointment. This will give you an opportunity to ask any questions or address any concerns you may have with your PCP. Inform the patient that if they have any questions or concerns prior to that appointment, to call their PCP's office right away. ACTION TAKEN: Patient desires an appointment - Routed to [facility]UN[facility]IT[facility] [[id number]] for scheduling telehealth visit (telephonic, virtual visit, or Facetime) within 7 days of discharge with PCP care team. Indicate hospital follow-up appointment needed within 7 days in Provider/FYI box. End Outreach. Your doctor would like us to remind you of the recommendations regarding the coronavirus (Covid19) outbreak: Avoid public places as much as possible. Avoid close contact (within 6 feet) with others you don?t live with, especially if they are sick. Stay home if you are sick. Wash your hands regularly for at least 20 seconds with soap and water. Wear a cloth mask in public places to help reduce community spread. Do not go to your Do (more content not included)...[facility] 04-05-2023 NotePatient Outreach ([facility]) GALINDO SNOW ([id number]) 1970 M Date Time Provider Department 04/05/23 KELLY GONZALEZ [facility] During your visit today, we recorded the following information about you: Kelly Gonzalez RN 04/05/2023 2:13 PM Signed TCM Home Visit Referral Source of Stratification: [facility] Hospital Admission Status: Discharged Readmission Risk Score: 19 FAVIAN Score: 25 Patient meets program referral criteria: No Patient does not qualify for High Risk TCM Home Visit program due to: Discharged home, does not meet program criteria Kelly Gonzalez RN April 05, 2023 1:51 PM TRANSITIONAL CARE MANAGEMENT (TCM) COMMUNITY MONITORING PROGRAM Provider Action/FYI: Patient returning call Patient needs GI F/U Navigation Team Please assist with scheduling TCM Hospital Discharge Follow up. TCM Eligible until 04/18/23 Thank you Pt states he is feeling better. Taking new rx Lactulose. No further episodes of coughing up blood. Denies CP or acute pain, SOB, N/V, fever or chills Voiding without difficulty BM - yes moving bowels Ambulating ad scooby Appetite is good, eating and hydrating Admits he has had alcohol since he was discharged patient F/U with his to be sure he has rx Protonix at home. Reviewed hospital D/C transition issues, upcoming appts, new meds Encouraged daily B/P, Pulse, weight, Pulse ox , temp monitoring, adequate fluid intake, encouraged patient to abstain from drinking alcohol Encouraged patient to contact office sooner for any new/worsening symptoms/concerns. Transitions of Care Critical Issues: SPECIALIST FOLLOW-UP: Follow up w/ GI to schedule outpatient EGD. Start: Lactulose SUMMARY: Discharge Network Status: In-Network Discharge Pt discharged from [facility] on 04/04/23. Admitted for: Hematemesis Contact made with patient: Yes Hi my name is Kelly Gonzalez RN and I am calling from the [facility] on behalf of your PCP, Terese Jack MD I understand you were recently in the hospital so I am calling to check in with you to ensure you are feeling well now that you're home. May I ask you a few questions related to your hospital stay and well-being? Yes Contact with patient post discharge, spoke to patient. Patient identified by name and . Do you feel your health is BETTER, WORSE, or the SAME since leaving the hospital? Better ACTION TAKEN: Patient indicated symptoms are better or same, no action required. Continue outreach. MEDICATIONS: Many patients have questions or concerns about their medications once they are home. Do you have any questions about taking your medications or which medication you should be on? No Do you need any medication refills at this time, including any of the medications you might take only when needed? No ACTION TAKEN: No action required For RNs or Pharmacy completing outreach ONLY, was a medication review completed? Yes SOCIAL: We would like to make sure you have what you need so that your basics needs are met - including your personal safety, food, housing and medications. Would you like to speak with a social work cleaning team member to help give you support for any of these needs? No It can be normal to feel anxious or down during a time like this. Would you like to talk to a mental health professional about how you have been feeling? No ACTION TAKEN: No action taken DISCHARGE INTRUCTIONS: Your discharge instructions / After Visit Summary (AVS) are important in guiding you through the recovery process. Do you have any questions related to your discharge instructions? No Do you have all the necessary equipment and supplies at home? Yes ACTION TAKEN: No action required I would like to help you schedule a hospital follow-up virtual or telephone visit with your PCP. This is a great way for you to connect with your provider to ensure you have safely transitioned home. If you are agreeable, I will send your request to a petroleum engineer who will contact and assist you with that appointment. This will give you an opportunity to ask any questions or address any concerns you may have with your PCP. Inform the patient that if they have any questions or concerns prior to that appointment, to call their PCP's office right away. ACTION TAKEN: Patient desires an appointment - Routed to [facility] [[id number]] for scheduling telehealth visit (telephonic, virtual visit, or Facetime) within 7 days of discharge with PCP care team. Indicate hospital follow-up appointment needed within 7 days in Provider/FYI box. End Outreach. Your doctor would like us to remind you of the recommendations regarding the coronavirus (Covid19) outbreak: Avoid public places as much as possible. Avoid close contact (within 6 feet) with others you don?t live with, especially if they are sick. Stay home if yo (more content not included)...[facility] 04-04-2023 NoteHNO ID: [id number] Author: Milagros Steve RN Service: Care Management Author Type: Registered Nurse Type: Care Mgt Progress Note Filed: 04/04/2023 4:18 PM Note Text: CARE MANAGEMENT PROGRESS NOTE SERVICE DATE: 04/04/2023 SERVICE TIME: 4:17 PM LOS: 5 days Patient has been cleared for DC, substance abuse and mental health resources were provided. SIGNATURE: Milagros Steve RN PATIENT NAME: Galindo Snow DATE: April 04, 2023 TIME: 4:17 PM PAGER/CONTACT #: [phone] [id number] NoteHNO ID: [id number] Author: Radha Cotter MD Service: Critical Care Author Type: Physician Type: Progress Notes Filed: 04/04/2023 3:02 PM Note Text: SERVICE DATE: 04/04/2023 SERVICE TIME: 3:00 PM [facility] ICU INTENSIVE CARE UNIT PROGRESS NOTE BRIEF HPI: 04/01 Very agitated On precedex gtt GIB- no scope today On CIWA protocol 04/02 Very agitated at times On precedex gtt MVI infusion ETOH withdrawal Afebrile Wbc- wnl 04/02 More alert Follows commands Afebrile Wbc- decreasing 04/04 Awake Alert HD stable afebrile Subjective INTERVAL EVENTS: Improved Objective MEDICATIONS: Current medications and allergies reviewed. Recommended/planned medication changes discussed in detail in the A/P section below. Please refer to [facility] for list of inpatient medications. VITAL SIGNS: BP 153/65 Pulse 79 Temp 37.2 ?C (98.9 ?F) (Oral) Resp 17 Ht 177.8 cm (5' 10 ) Wt 75.2 kg (165 lb 12.6 oz) SpO2 98% BMI 23.79 kg/m? Current Weight: Weight: 75.2 kg (165 lb 12.6 oz) Admission Weight: Weight: 79.2 kg (174 lb 9.7 oz) PHYSICAL EXAM: General: awake, alert comfortable Eyes: PERRLA, EOMI Lungs: equal chest rise Cardiac: NSR Abdomen: soft nt Neuro: Awake Alert Ox4 Non focal DATA: Diagnostic tests reviewed for today's visit: Most recent labs and imaging results. ICU Checklist Last Documented/Reviewed time: 04/01/2023 9:35 AM A= Assess, Prevent, Manage Pain Pain adequately controlled?: Yes C= Choice of Sedation and Analgesia RASS at Goal?: Yes B= Both Spontaneous Awakening and Breathing Trials Ventilator: None D= Delirium: Assess, Prevent and Manage ICU Delirium Status: CAM Positive - existing, continue interventions Sleep adequate?: Yes Restraint Status: None E= Early Mobility/Excercise ICU Mobility: ICU Mobility-Pt Has Been Out of Bed: Yes F= Family Engagement and Empowerment ICU plan of care visit at bedside in last 24 hours: Yes, ICU Team only ICU Disposition: ICU Disposition- Is Patient Clinically Ready to Transfer to [facility] or SDU?: No Discharge Planning: To be determined Prevention: Line Status: None Kelsey Status: None GI/Stress Ulcer Prophylaxis: PPI Nutrition is at Goal: Advancing to goal VTE Prophylaxis: Chemoprophylaxis: No chemoprophylaxis Mechanical Prophylaxis: Knee high SCD No Chemoprophylaxis Reason: Bleeding risk Assessment AND Plan Gastrointestinal * Acute upper GI bleeding- (present on admission) No drop in h/h Gi scope as op ppi Hematemesis with nausea NO FURTHER EPISODES Bleeding esophageal varices (HCC) octreiotide Psychiatry Alcohol withdrawal delirium (HCC) START ATIVAN ACT WEAN PRECEDEX GTT Alcohol abuse To follow for help with stopping Medication and Non-Pharmacologic VTE Prophylaxis/Anticoagulants 04/01/23 0945 pneumatic compression stockings (dc,oh) VTE Prophylaxis: Contraindicated low plts Plan of care discussed with: Provider, RN, Patient and ICU Team ICU STAFF Note of Personal Involvement in Care I have reviewed and verified the recent history and physical examination. I personally participated in the miranda components. I have discussed the case and management of the patient's care, exclusive of separately billed procedures which fulfilled the standards for LEVEL 2. To be discharged home today Dc abx and ativan SIGNATURE: Radha Cotter MD PATIENT NAME: Galindo Snow DATE: April 04, 2023 TIME: 3:00 [id number] NoteHNO ID: [id number] Author: Nila Gray MD Service: Hospital Medicine Author Type: Physician Type: Plan of Care Filed: 04/04/2023 11:05 AM Note Text: Patient transferred out from ICU bed 2---Accepted to [facility] Briefly patient is a 52-year-old male with history of alcohol abuse/liver cirrhosis/peptic ulcer disease/GERD/thrombocytopenia who presented to [place] ED with hematemesis. Initially admitted in stepdown unit for GI bleed. Hemoglobin monitored closely. GI consulted but no endoscopy done as he went into alcohol withdrawal. Hemoglobin has been stable and is 10.6 today. No recurrent episodes of hematemesis. Had to be transferred to ICU. Started on phenobarbital/Precedex drip/Ativan-CIWA scale. Also started on lactulose by GI team. Diet advanced. Stable to transfer to floor. We will monitor hemoglobin and await GIs plan for endoscopy inpatient versus outpatient.[id number] NoteHNO ID: [id number] Author: Radha Cotter MD Service: Critical Care Author Type: Physician Type: Progress Notes Filed: 04/03/2023 2:13 PM Note Text: SERVICE DATE: 04/03/2023 SERVICE TIME: 2:12 PM [facility] INTENSIVE CARE UNIT PROGRESS NOTE BRIEF HPI: 04/01 Very agitated On precedex gtt GIB- no scope today On CIWA protocol 04/02 Very agitated at times On precedex gtt MVI infusion ETOH withdrawal Afebrile Wbc- wnl 04/02 More alert Follows commands Afebrile Wbc- decreasing Subjective INTERVAL EVENTS: No Change Objective MEDICATIONS: Current medications and allergies reviewed. Recommended/planned medication changes discussed in detail in the A/P section below. Please refer to [facility] for list of inpatient medications. VITAL SIGNS: BP 134/68 Pulse (!) 57 Temp 36.6 ?C (97.8 ?F) (Axillary) Resp 13 Ht 177.8 cm (5' 10 ) Wt 77.1 kg (169 lb 15.6 oz) SpO2 98% BMI 24.39 kg/m? Current Weight: Weight: 77.1 kg (169 lb 15.6 oz) Admission Weight: Weight: 79.2 kg (174 lb 9.7 oz) PHYSICAL EXAM: General: ON PRECEDEX GTT/ MORE AWAKE Eyes: 3 MM Lungs: EQUAL CHEST RISE Cardiac: SR Abdomen: Abdomen soft, non-tender, BS normal, No masses or organomegaly Neuro: PUPILS 3 MM REACTIVE NON FOCAL MORE ALERT DATA: Diagnostic tests reviewed for today's visit: Most recent labs and imaging results. ICU Checklist Last Documented/Reviewed time: 04/01/2023 9:35 AM A= Assess, Prevent, Manage Pain Pain adequately controlled?: Yes C= Choice of Sedation and Analgesia RASS at Goal?: Yes B= Both Spontaneous Awakening and Breathing Trials Ventilator: None D= Delirium: Assess, Prevent and Manage ICU Delirium Status: CAM Positive - existing, continue interventions Sleep adequate?: Yes Restraint Status: None E= Early Mobility/Excercise ICU Mobility: ICU Mobility-Pt Has Been Out of Bed: Yes F= Family Engagement and Empowerment ICU plan of care visit at bedside in last 24 hours: Yes, ICU Team only ICU Disposition: ICU Disposition- Is Patient Clinically Ready to Transfer to [facility] or SDU?: No Discharge Planning: To be determined Prevention: Line Status: None Kelesy Status: None GI/Stress Ulcer Prophylaxis: PPI Nutrition is at Goal: Advancing to goal VTE Prophylaxis: Chemoprophylaxis: No chemoprophylaxis Mechanical Prophylaxis: Knee high SCD No Chemoprophylaxis Reason: Bleeding risk Assessment AND Plan Gastrointestinal * Acute upper GI bleeding- (present on admission) No drop in h/h Hematemesis with nausea NO FURTHER EPISODES Bleeding esophageal varices (HCC) octreiotide Psychiatry Alcohol withdrawal delirium (HCC) START ATIVAN ACT WEAN PRECEDEX GTT Alcohol abuse precedex gtt and CIWA protocol Wean precedex gtt Medication and Non-Pharmacologic VTE Prophylaxis/Anticoagulants 04/01/23 0945 pneumatic compression stockings (dc,oh) VTE Prophylaxis: LOW PLTS Plan of care discussed with: Provider, RN, Patient and ICU Team ICU STAFF Note of Personal Involvement in Care I have reviewed and verified the recent history and physical examination. I personally participated in the miranda components. I have discussed the case and management of the patient's care, exclusive of separately billed procedures which fulfilled the standards for LEVEL 3. SIGNATURE: Radha Cotter MD PATIENT NAME: Galindo Snow DATE: April 03, 2023 TIME: 2:12 [facility] [id number] NoteHNO ID: [id number] Author: Stacy Kraus APRN.SENIOR LINUX SYSTEMS ADMINISTRATOR Service: Critical Care Author Type: Nurse Practitioner Type: Plan of Care Filed: 04/03/2023 9:37 AM Note Text: Non- Violent / Non- Self Destructive Restraint Assessment Patient assessed by a DIP TANKER. Assessment must include all areas listed below: Patient's immediate situation: Confused Patient's reaction to restraint: Cooperative Patient's medical condition: Stable Evaluation and assessment of the need to : Continue restraint while confused and pulling at lines. Stacy Kraus APRN.SENIOR LINUX SYSTEMS ADMINISTRATOR 9:37 AMBrigh[facility] City [facility] [id number] NoteHNO ID: [id number] Author: Teresa Sinclair LISW Service: Care Management Author Type: Customer Service Administrator Type: Care Mgt Initial Assessment Filed: 04/02/2023 1:41 PM Note Text: CARE MANAGEMENT: ASSESSMENT AND DISCHARGE PLAN SERVICE DATE: April 02, 2023 SERVICE TIME: 1:00 PM PCP: Terese Jack MD Primary Contact: Extended Emergency Contact Information Primary Emergency Contact: Anca Snow [address]: [address] [place] [address] Mobile Relation: Spouse Admission Status: Inpatient Insurance Provider: [employer] Discharge Planning requested by: Per Department Practice Potential Transition Plans Home;No Services Indicated;To Be Determined;Other: See Comment (Outpatient vs. Inpatient Substance Abuse Treatment) Advance Directives Current Advance Directive: None [employer] Attempted to Assist with AD Completion: No Unable to Assist Due To:: Other: See Comment (patient mental status (alcohol withdrawal)) Current Living Arrangements and Support Lives with: Spouse/significant other, Children (26 y.o. son) Type of Residence: Private Residence (House) Support: Children, Spouse/significant other How do you manage to accomplish the following: Independent: Ambulation;Bathe/Shower;Dress;Meals/Meal Prep;Going to the bathroom;Medication Management Current Services/Equipment Current Post-Acute Service(s): None [place] of Choice Explained: [place] of [place] Given: No Reason Not Given: No placements necessary Discharge Planning Participant(s): Spouse/significant other Patient/Family Comments: Lately he has been trying to hide the drinking from me but I can see it, I can smell it Caregiver Assessment: Caregiver is ready, willing and able to meet the patient's needs as recommended by the inter-professional team: No Caregiver needed Transport at Discharge: Transportation Arrangements: Car Needs Prior to Discharge: Needs Prior to Discharge: To Be Determined Post-Acute Discharge Plan: Patient is admitted in [facility] ICU after presenting to the ED with vomiting and LLQ abdominal pain. JOSE unable to complete initial SW/Care Mgmt assessment with patient at this time. Patient has been agitated, requiring a sitter, and is on CIWA protocol. JOSE spoke with patient's , Anca, via phone ([phone]). She was at work but able to take a break to speak to this SW. Anca informed the patient has been drinking beer daily, although lately trying to hide it more from her. She does not drink. She informed he has gone court ordered treatment at [facility] after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 patient to home (with escort). - Resume previous diet indefinitely. IMPRESSION Mr. Snow is a 52 year old with past medical history of cirrhosis 2/2 alcohol use c/b elevated LFTs, acute on chronic anemia, portal HTN, thrombocytopenia, presenting today for follow up of cirrhosis. Since last visit he relapsed with alcohol ~2 months ago, admits to drinking 6-8 beers daily, PTHtest suggesting heavy/chronic alcohol use. MELD 9, remains well compensated for now but discussed that could change and he could decompensate with continued alcohol use and would not be candidate forOLT if actively drinking alcohol. Has struggled with maintaining sobriety in the past, had attendedrehab/AA, interested in Psych consult. Discussed pathophysiology of cirrhosis along with signs of de compensation. RECOMMENDATION: Repeat MELD labs in November then every 2-3 months Consult Psychiatry for alcoholism HCC screening: UTD 09/2022, repeat imaging-try for triphasic CT 03/2023 due to alcohol relapse, repeat imaging every 6 months with AFP EV screen: UTD 05/26 with grade 1 EV, repeat 05/27 Not candidate for OLT in setting of active alcohol use, stressed need for strict and absolute abstinence so as to prevent hepatic decompensation Mediterranean diet/increased cardiovascular exercise with goal >45 minutes 5 days weekly Avoid liver detox cleanse/supplements Not to exceed 2,000 mg tylenol daily Follow up in March with CT and labs prior, sooner if needed. I spent a total of 40 minutes on the date of the service which included preparing to see the patient, [id number] patient care, completing clinical documentation, obtaining and/or reviewing separately obtained history, performing a medically appropriate examination, counseling and educating the pat ient/family/caregiver, ordering medications, tests, or procedures, communicating with other HCPs (not separately reported), and independently interpreting results (not separately reported). Leonel Lizarraga PA-C October 13, 2022 11:13 AM documented in this encounterOur [facility] Nurse Note* Chucky Bustamante RN - 10/10/2022 8:40 AM EST Patient has been identified by name and date of : Yes Patient given Testosterone Cypionate 200mg IM in the left upper quadrant gluteus. Patient tolerated injection well. Lot#: [id number] Exp date: 06/2025 Chucky Bustamante RN documented in this encounterOur Lady Of [facility]03-06-2023 Instructions* Patient Instructions* Terese Jack MD - 10/08/2022 4:57 PM EST Start taking 20mg daily of lisinopril. If blood pressure is still higher than 140 systolic in 1 week of taking this, increase dose to 40mg documented in this encounterOur Lady Of [facility]23 History of Present illness Narrative* Terese Jack MD - 10/08/2022 4:50 PM EST Outpatient Internal Medicine - [facility] Patient name: Galindo Snow Medical Record: [id number] cc: Patient presents with: Recheck 52 year old male with ACTIVE PROBLEM LIST Thrombocytopenia (Hcc) Gastropathy Alcoholism (Hcc) Gallstones Pud (Peptic Ulcer Disease) Gerd (Gastroesophageal Reflux Disease) Ptsd (Post-Traumatic Stress Disorder) Bilateral Hand Numbness Cervicalgia Chronic Neck Pain Sprain of Anterior Talofibular Ligament of Right Ankle Lateral Epicondylitis of Left Elbow Arthralgia of Right Acromioclavicular Joint Anxiety Non Compliance With Medical Treatment Abdominal Pain Alcoholic Cirrhosis of Liver Without Ascites (Hcc) History of Esophageal Varices Hypogonadism in Male Essential Hypertension here for f/u for chronic disease/disorder mgmt. Comes in for bp follow up. Has been checking bp at home, similar to reading today in the office. Has been having nosebleeds. This is something he has had in the remote past, treated by ENT. Current Outpatient Medications Medication Sig testosterone cypionate (DEPO-TESTOSTERONE) 200 mg/mL injection Inject 1 mL intramuscularly every 2 weeks for 90 days. lisinopril (ZESTRIL, PRINIVIL) 10 mg tablet Take 1 tablet by mouth once daily. buPROPion XL (WELLBUTRIN XL) 300 mg 24 hr tablet Take 1 tablet by mouth once daily. magnesium oxide (MAG-OX) 400 mg (241.3 mg magnesium) tablet Take 1 tablet by mouth once daily. thiamine (VITAMIN B1) 100 mg tablet 1 tablet by ORAL/FEEDING TUBE route three times daily. pantoprazole DR (PROTONIX) 40 mg tablet Take 1 tablet by mouth once daily. docusate sodium (COLACE) 100 mg capsule Take 1 capsule by mouth once daily. (Patient not taking: Reported on 10/08/2022) sildenafil (VIAGRA) 100 mg tablet Take 1 tablet by mouth as needed. 30-60 minutes before sexual intercourse therapeutic multivitamin-minerals (THERA M PLUS, FERROUS FUMARAT,) 9 mg iron-400 mcg tablet Take 1 tablet by mouth once daily. (Patient not taking: Reported on 10/08/2022) Current Facility-Administered Medications Medication Dose Route Frequency testosterone cypionate 200 mg injection (DEPO-TESTOSTERONE) 200 mg INTRAMUSCULAR q 2 WEEKS PE: BP 165/63 Pulse 73 Temp 36.8 C (98.3 F) Resp 18 Wt 90.8 kg (200 lb 1.6 oz) BMI 29.67 kg/m Gen: No acute distress, well developed, well nourished CV: RRR, S1S2nl, m/r/g, CR <2s Impression: (I10) Essential hypertension (primary encounter diagnosis) (R04.0) Bleeding from the nose Plan: Start taking 20mg daily of lisinopril. If blood pressure is still higher than 140 systolic in 1 week of taking this, increase dose to 40mg Consult ENT Medical Decision Making: Problems: Moderate: 1+ chronic illnesses with change Risk: Moderate: Drug management Medical Decision Making Level: 4 - Moderate RTC in 3 weeks Luke Jack MD Internal Medicine - Primary Care [facility] 10/08/2022 4:50 PM documented in this encounterOur Lady Of [facility]03-03-2023 Miscellaneous Notes* Telephone Encounter - María Jackson RN - 10/05/2022 10:32 AM EST Called Patient to offer for him to come in later today for missed AL appointment this morning. No answer, LVM. documented in this encounterOur Lady Of [facility]02-20-2023 History of Present illness Narrative* Mag El RDMS - 09/24/2022 6:47 PM EST Radiology Service Progress Note PATIENT NAME: Galindo Snow DATE OF SERVICE: September 24, 2022 TIME: 6:47 PM PATIENT IDENTITY VERIFICATION COMPLETED USING TWO (2) IDENTIFIERS: Name and Date of confirmedby patient verbally. FALL SCREENING: Has the patient had 2 falls in the last year or 1 fall with injury or currently using an Ambulatory Assistive Device (Walker, Cane, Wheelchair, Crutches, etc.)? No PATIENT GENDER DATA: Male PATIENT RELEVANT IMPLANT DATA REVIEWED: Not Applicable RADIOLOGY DEPARTMENT: Ultrasound PERIPHERAL IV DATA: Not applicable SIGNED BY: Mag El RDMS, RVT September 24, 2022 6:47 PM documented in this encounterOur Lady Of [facility]02-17-2023 Nurse Note* Rodolfo Dangelo RN - 09/21/2022 9:12 AM EST Patient has been identified by name and date of : YES The patient is here for an injection of Depotestosterone. Dose: 200 mg Route: Intramuscular Site: right upper quadrant gluteus See MAR Pt. tolerated without incident. Future appointments scheduled. Pt. checked in for labs. Rodolfo Dangelo RN documented in this encounterOur Lady Of [facility]02-02-2023 Miscellaneous Notes* Telephone Encounter - Mayte Mcginnis RN - 09/06/2022 1:51 PM EST Updated patient on renewal of his testosterone and to diamond picker at pharmacy * Telephone Encounter - Bianca Chaudhary RN - 09/06/2022 12:14 PM EST Left message for patient to call back. When patient returns call, please inform that below medication was sent to pharmacy Thank you Bianca Chaudhary RN * Telephone Encounter - Mayte Mcginnis RN - 09/06/2022 8:42 AM EST Last office visit 08/10/2022 Next appt - none found Patient phones requesting refills as follows: Requested Prescriptions Pending Prescriptions Disp Refills testosterone cypionate (DEPO-TESTOSTERONE) 200 mg/mL injection 2 mL 2 Sig: Inject 1 mL intramuscularly every 2 weeks for 90 days. Please review and advise. Mayte Mcginnis RN documented in this encounterOur Lady Of [facility]02-02-2023 Nurse Note* Mayte Mcginnis RN - 09/06/2022 8:29 AM EST Patient's name and date used for confirmation of patient identification. Patient here for Nurse Visit to receive testosterone. Please see MAR record for further details. Tolerated injection w/o incident. Aware of next appt date, and stating needs refill on testosteronewhich I will get to Dr. Jack for fulfillment. documented in this encounterOur Lady Of [facility]01-19-2023 Nurse Note* Chucky Bustamante RN - 08/23/2022 8:40 AM EST Patient has been identified by name and date of : Yes Patient given Testosterone Cypionate 200 mg IM in the right upper quadrant gluteus. Patient tolerated injection well. Lot#: [id number] Exp date: 11/2024 Chucky Bustamante RN documented in this encounterOur Lady Of [facility]01-06-2023 Instructions* Patient Instructions* Terese Jack MD - 08/10/2022 9:42 AM EST EMDR therapy for PTSD - [facility] offers it. - [facility] offers it. documented in this encounterOur Lady Of [facility]01-06-2023 History of Present illness Narrative* Terese Jack MD - 08/10/2022 9:32 AM EST Outpatient Internal Medicine - [facility] Patient name: Galindo Snow Medical Record: [id number] cc: Patient presents with: Follow Up 52 year old male with ACTIVE PROBLEM LIST Thrombocytopenia (Hcc) Gastropathy Alcoholism (Hcc) Gallstones Pud (Peptic Ulcer Disease) Gerd (Gastroesophageal Reflux Disease) Ptsd (Post-Traumatic Stress Disorder) Bilateral Hand Numbness Cervicalgia Chronic Neck Pain Sprain of Anterior Talofibular Ligament of Right Ankle Lateral Epicondylitis of Left Elbow Arthralgia of Right Acromioclavicular Joint Anxiety Non Compliance With Medical Treatment Abdominal Pain Alcoholic Cirrhosis of Liver Without Ascites (Hcc) History of Esophageal Varices Hypogonadism in Male here for f/u for chronic disease/disorder mgmt. Reports ongoing physical anxiety. Believes it might be related to PTSD. Does not want to do any medication that will affect sexual function. Has now good sexual function with the testosterone supplementation and Viagra. Last 5 Encounter BP Readings: Date: BP: 08/10/2022 154/75 06/25/2022 163/67 05/09/2022 123/66 05/08/2022 135/72 05/08/2022 126/76] Current Outpatient Medications Medication Sig buPROPion XL (WELLBUTRIN XL) 300 mg 24 hr tablet Take 1 tablet by mouth once daily. magnesium oxide (MAG-OX) 400 mg (241.3 mg magnesium) tablet Take 1 tablet by mouth once daily. thiamine (VITAMIN B1) 100 mg tablet 1 tablet by ORAL/FEEDING TUBE route three times daily. docusate sodium (COLACE) 100 mg capsule Take 1 capsule by mouth once daily. testosterone cypionate (DEPO-TESTOSTERONE) 200 mg/mL injection Inject 1 mL intramuscularly every 2 weeks for [address] (PROTONIX) 40 mg tablet Take 1 tablet by mouth once daily. sildenafil (VIAGRA) 100 mg tablet Take 1 tablet by mouth as needed. 30-60 minutes before sexual intercourse therapeutic multivitamin-minerals (THERA M PLUS, FERROUS FUMARAT,) 9 mg iron-400 mcg tablet Take 1 tablet by mouth once daily. Current Facility-Administered Medications Medication Dose Route Frequency testosterone cypionate 200 mg injection (DEPO-TESTOSTERONE) 200 mg INTRAMUSCULAR q 2 WEEKS PE: BP 154/75 Pulse 81 Temp 36.7 C (98.1 F) (Temporal) Resp 16 Wt 94.8 kg (209 lb) BMI 30.99 kg/m Gen: No acute distress, well developed, well nourished CV: RRR, S1S2nl, m/r/g, CR <2s Lungs: CTAB, nl resp effort Impression: (I10) Essential hypertension (primary encounter diagnosis) (F43.10) PTSD (post-traumatic stress disorder) (R79.89) Low testosterone in male Plan: Re: PTSD: Pt will look into EMDR therapy. C/w Wellbutrin XL for now at current dosing. Low testosterone / ED: C/w current dosing of IM testosterone. Recheck levels before next visit. HTN: Start lisinopril 10mg daily. Medical Decision Making: Problems: Moderate: 1+ chronic illnesses with change Risk: Moderate: Drug management Medical Decision Making Level: 4 - Moderate RTC in 2-3 mo Luke Jack MD Internal Medicine - Primary Care [facility] 08/10/2022 9:32 AM documented in this encounterOur Lady Of [facility]12-05-2022 Miscellaneous Notes* Telephone Encounter - Michelle Bennett RN - 07/09/2022 8:36 AM EST Pt concern was addressed by another provider. Closing encounter. * Telephone Encounter - Janee Baeza - 07/04/2022 5:06 PM EST Patient's Anca calling in stating that her had a virtual appointment today. Patient's needed to discuss the COVID oral antiviral and monoclonal antibody therapy with her before he agreed to take it when the DrBon Offered it while on the virtual appt. Patient's responded back within minutes and no one contacted her. Anca is concerned that her will not get the medication in time. Please advise. Anca # [phone] Thank you Janee Baeza * Telephone Encounter - Huong Dominique - 07/03/2022 3:25 PM EST 1st attempt LVM documented in this encounterOur Lady Of [facility]cy [facility]11-30-2022 Miscellaneous Notes* Telephone Encounter - Vee Ramey MA - 07/04/2022 8:05 PM EST Left VM to check mychart message * Telephone Encounter - Roverto Keita MD - 07/04/2022 7:57 PM EST Please confirm. Symptoms started on Saturday, tested positive on Saturday. This will be day #4, tomorrow day #5. Can start treatment on day #5. The documentation for the Paxlovid is quite extensive and can take an additional 20 minutes. Needs another virtual visit. Recommend they phone as early as possible (730AM) tomorrow and be placed on a provider's schedule at [place] for a virtual visit. documented in this encounterOur Lady Of Mercy [facility]11-30-2022 History of Present illness Narrative* Lola Garcia APRN.SENIOR LINUX SYSTEMS ADMINISTRATOR - 07/04/2022 8:18 AM EST DISTANCE HEALTH VISIT This Team Access Model visit is a phone encounter. It required patient-provider interaction for themedical decision making as documented below. Galindo Snow is a 52 year old male seen for Covid 19. Symptom onset Saturday and he tested positiveon Saturday. Denies any chest pain, sob, dizziness, and no palpitations. Positive productive cough, chills without fever, denies any bowel bladder changes. Galindo declines antiviral treatment. HISTORY REVIEWED (electronic chart updated): - medical history - medications - allergies REVIEW OF SYSTEMS: GENERAL: no recent change in weight, no fever, admits to fatigue HEENT: admits to nasal congestion with clear rhinorrhea, no ear pain, no sinus pressure, hearing isnormal RESPIRATORY: no wheezing or shortness of breath, mild non-productive cough without SOB/wheezing CARDIOVASCULAR: no chest pain, no palpitations GI: tolerating PO well, BMs normal, and no abdominal pain : urination is normal MUSCULOSKELETAL: denies any painful or swollen joints NEURO: no numbness or paresthesias and no weakness of the extremities PHYSICAL EXAMINATION: VIDEO EXAM: (if done, performed via video enabled technology) No exam performed, patient speaking in complete full sentences with minimal cough noted. ASSESSMENT/PLAN: 1. COVID-19 - ICD9: 079.89, ICD10: U07.1 - Discussed use of antiviral Paxlovid, patient declines medication at this time would like to discuss with . I explained to patient there is a 5 day window for treatment and no longer eligible after the 5 days, patient verbalized an understanding CARE ADVICE FOR FEVER: REASSURANCE AND EDUCATION: The presence of a fever usually means that you have an infection. Most fevers are not serious and may actually help the body fight infection. The goal of fever therapy is to bring the fever down to a comfortable level. Use the following definitions to help put the level of fever into proper perspective: 100-102 F (37.8 - 38.9 C): Low-grade fevers and may help body fight infection. 102-104 F (38.9 - 40 C): Moderate-grade fevers; cause discomfort. Over 104 F (over 40 C): High fevers; cause discomfort, weakness, headache, lethargy. Over 106 F (over 41 C): The fever itself can be harmful. FOR ALL FEVERS: Drink cold fluids to prevent dehydration. Dress in 1 layer of lightweight clothing and sleep with 1 light blanket. For fevers less than 101 F (38.3 C), fever medicines are usually not necessary. FEVER MEDICINES: For fever relief, take acetaminophen. Treat fevers above 101 F (38.3 C). The goal of fever therapy is to bring the fever down to a comfortable level. Remember that fever medicine usually lowers fever 2-3 F (1-1.5 C). ACETAMINOPHEN (E.G., TYLENOL): Take 650 mg (two 325 mg pills) by mouth every 4-6 hours as needed. Each Regular Strength Tylenol pill has 325 mg of acetaminophen. The most you should take each day is 3,250 mg (10 Regular Strength pills a day). Another choice is to take 1,000 mg (two 500 mg pills) every 8 hours as needed. Each Extra Strength Tylenol pill has 500 mg of acetaminophen. The most you should take each day is 3,000 mg (6 Extra Strength pills a day). EXTRA NOTES: Acetaminophen is thought to be safer than ibuprofen or naproxen for people over 65 years old. Acetaminophen is in many OTC and prescription medicines. It might be in more than one medicine that you are taking. You need to be careful and not take an overdose. An acetaminophen overdose can hurt the liver. [employer], the company that makes Tylenol, has different dosage instructions for Tylenol in [place] and[place]. In [place], the maximum recommended dose per day is 4,000 mg or twelve (12) Regular-Strength (325 mg) pills. In the [place], [employer] recommends a maximum dose of ten (10) Regular-Strength (325 mg) pills. Before taking any medicine, read all the instructions on the package. Discussed purpose and use I spent 20 minutes in the visit, with more than 50% of the total [id number] time of the visit in counseling / coordination of care. Lola Garcia APRN.SENIOR LINUX SYSTEMS ADMINISTRATOR He tested positive Saturday Feels stable Yes chills no temp Sore throat RED Cough productive Body aches Tylenol N/v/d no He is tolerating liquids documented in this encounterOur Lady Of [facility]cy [facility]11-21-2022 Instructions* Patient Instructions* Terese Jack MD - 06/25/2022 7:39 PM EST Increase Testosterone injections to every 2 weeks. See me in 6 weeks. Check fasting bloodwork in the 1-2 weeks before seeing me. Do the bloodwork 1 week from an injection 8-10 AM in the morning. Check home blood pressures and bring a log. documented in this encounterOur Lady Of [facility]11-21-2022 History of Present illness Narrative* Terese Jack MD - 06/25/2022 7:24 PM EST Outpatient Internal Medicine - [facility] Patient name: Galindo Snow Medical Record: [id number] cc: Patient presents with: Follow Up 52 year old male with ACTIVE PROBLEM LIST Thrombocytopenia (Hcc) Gastropathy Alcoholism (Hcc) Gallstones Pud (Peptic Ulcer Disease) Gerd (Gastroesophageal Reflux Disease) Ptsd (Post-Traumatic Stress Disorder) Bilateral Hand Numbness Cervicalgia Chronic Neck Pain Sprain of Anterior Talofibular Ligament of Right Ankle Lateral Epicondylitis of Left Elbow Arthralgia of Right Acromioclavicular Joint Anxiety Non Compliance With Medical Treatment Abdominal Pain Alcoholic Cirrhosis of Liver Without Ascites (Hcc) History of Esophageal Varices Hypogonadism in Male here for f/u for chronic disease/disorder mgmt. Reports that the testosterone injections might have started to be effective. Has noticed more desire and improved erection but not enough to be able to penetrate. Wonders if the dose might be too low. Last 5 Encounter BP Readings: Date: BP: 06/25/2022 163/67 05/09/2022 123/66 05/08/2022 135/72 05/08/2022 126/76 04/17/2022 150/50] Current Outpatient Medications Medication Sig pantoprazole DR (PROTONIX) 40 mg tablet Take 1 tablet by mouth once daily. testosterone cypionate (DEPO-TESTOSTERONE) 200 mg/mL injection Inject 1 mL intramuscularly once every month for 180 days. buPROPion XL (WELLBUTRIN XL) 150 mg 24 hr tablet Take 1 tablet by mouth once daily. magnesium oxide (MAG-OX) 400 mg (241.3 mg magnesium) tablet Take 1 tablet by mouth once daily. thiamine (VITAMIN B1) 100 mg tablet 1 tablet by ORAL/FEEDING TUBE route three times daily. ferrous gluconate 324 mg (37.5 mg iron) tablet Take 1 tablet by mouth three times daily with meals. docusate sodium (COLACE) 100 mg capsule Take 1 capsule by mouth once daily. therapeutic multivitamin-minerals (THERA M PLUS, FERROUS FUMARAT,) 9 mg iron-400 mcg tablet Take 1 tablet by mouth once daily. sildenafil (VIAGRA) 100 mg tablet Take 1 tablet by mouth as needed. 30-60 minutes before sexual intercourse Current Facility-Administered Medications Medication Dose Route Frequency testosterone cypionate 200 mg injection (DEPO-TESTOSTERONE) 200 mg INTRAMUSCULAR q 1 MONTH PE: BP 163/67 Pulse 88 Temp 36.9 C (98.4 F) Resp 16 Wt 97.5 kg (215 lb) BMI 31.88 kg/m Gen: No acute distress, well developed, well nourished CV: RRR, S1S2nl, m/r/g, CR <2s Lungs: CTAB, nl resp effort Impression: (E29.1) Hypogonadism in male (primary encounter diagnosis) (R03.0) Elevated blood-pressure reading without diagnosis of hypertension Plan: Can increase dosing of IM testosterone to 200mg every 2 weeks. Pt was also unaware he could take viagra, advised that he can do so. Check CBC, Total testosterone and lipid panel one week after injection. Monitor home bp. Medical Decision Making: Problems: Moderate: 1+ chronic illnesses with change Risk: Moderate: Drug management Medical Decision Making Level: 4 - Moderate RTC in 6 weeks. Luke Jack MD Internal Medicine - Primary Care [facility] 06/25/2022 7:24 PM documented in this encounterOur Lady Of [facility]11-04-2022 Nurse Note* Chucky Bustamante RN - 06/08/2022 3:23 PM EDT Patient has been identified by name and date of : Yes Patient given Testosterone Cypionate IM in the right upper quadrant gluteus. Patient tolerated injection well. Lot#: [id number] Exp date: 09/2024 Chucky Bustamante RN documented in this [facility]11-03-2022 Miscellaneous Notes* Telephone Encounter - Monique Perea MA - 06/07/2022 1:53 PM EDT Patient has an appt 06/25/22. Patient requests via [employer] refills as follows: Requested Prescriptions Pending Prescriptions Disp Refills pantoprazole DR (PROTONIX) 40 mg tablet 90 tablet 3 Sig: Take 1 tablet by mouth once daily. Please review and advise. Monique Perea MA documented in this [facility]11-02-2022 Miscellaneous Notes* Telephone Encounter - Terese Jack MD - 06/06/2022 11:11 AM EDT ordered * Telephone Encounter - Chucky Bustamante RN - 06/06/2022 9:48 AM EDT Patient has appointment for testosterone injection on 06-08. Please order as CAM. Thank you. documented in this encounterOur Lady Of [facility]11-01-2022 Miscellaneous Notes* Telephone Encounter - Anitha Malave - 06/05/2022 6:47 PM EDT Appt scheduled * Telephone Encounter - Chucky Bustamante RN - 06/05/2022 4:38 PM EDT We can schedule that as an add on on -3 or -4 after 1:30 pm on the half hour up until 3:30 pm being last appointment. Left message to call office back explaining that we could add him on -3 or - 4 in afternoon * Telephone Encounter - Jeannie Lopez - 06/05/2022 4:30 PM EDT Patient needs injection prior to 06/09/22. Can we double book nurse visit? * Telephone Encounter - Myla Mazariegos MA - 06/05/2022 1:25 PM EDT I called patient regarding message below. No answer, left VM. * Telephone Encounter - Terese Jack MD - 06/05/2022 12:23 PM EDT What does she mean by too far away? * Telephone Encounter - Marcy Sahu Pss - 06/04/2022 8:55 AM EDT Pt calling to schedule pt for testosterone injection. Next available nurse visit is 06/19/22 but she states this is too far away. Please advise. documented in this encounterOur Lady Of [facility]cy [facility]10-25-2022 Instructions* Patient Instructions* Renetta Garrison - 05/29/2022 8:22 AM EDT MyChart for appointment for retouch on the warts if needed. documented in this [facility]10-25-2022 History of Present illness Narrative* Cyn Enriquez MD - 05/29/2022 8:00 AM EDT New Patient CC: This patient is a 51 year old male here for new spots. HPI: -Patient has 2 bumps on his right hand that are asymptomatic -He says he has some brown spots on his arms, neck, etc. He states they just appeared out of no where. PAST HISTORY Past Medical History: PAST MEDICAL HISTORY Diagnosis Date Alcoholism (HCC) Gallstones Gastropathy PUD (peptic ulcer disease) Thrombocytopenia (HCC) Medications: Current Outpatient Medications on File Prior to Visit Medication Sig testosterone cypionate (DEPO-TESTOSTERONE) 200 mg/mL injection Inject 1 mL intramuscularly once every month for 180 days. sildenafil (VIAGRA) 100 mg tablet Take 1 tablet by mouth as needed. 30-60 minutes before sexual intercourse buPROPion XL (WELLBUTRIN XL) 150 mg 24 hr tablet Take 1 tablet by mouth once daily. pantoprazole DR (PROTONIX) 40 mg tablet Take 1 tablet by mouth once daily. magnesium oxide (MAG-OX) 400 mg (241.3 mg magnesium) tablet Take 1 tablet by mouth once daily. thiamine (VITAMIN B1) 100 mg tablet 1 tablet by ORAL/FEEDING TUBE route three times daily. ferrous gluconate 324 mg (37.5 mg iron) tablet Take 1 tablet by mouth three times daily with meals. docusate sodium (COLACE) 100 mg capsule Take 1 capsule by mouth once daily. therapeutic multivitamin-minerals (THERA M PLUS, FERROUS FUMARAT,) 9 mg iron-400 mcg tablet Take 1 tablet by mouth once daily. No current facility-administered medications on file prior to visit. Allergies: Dilaudid [Hydromorphone (Bulk)] Physical Exam Patient sitting in no acute distress Scalp: examined Hair: examined Eyelids: examined Ears: examined Lips: examined Mouth: examined Face: examined Neck: examined Right Arm: examined Left Arm: examined Left dorsal hand: examined Right dorsal hand: examined Palms: examined Fingers: examined Pertinent findings include: -thin brown wart like small papule on distal left upper arm and right lower eyelid -small flat verrucal papule on the left dorsal thumb and the dorsal aspect of the right hand ASSESSMENT & PLAN: Verruca Vulgaris Procedure: Cryosurgery of non-malignant lesion(s) Risk, benefits, alternatives and personnel required for cryosurgery reviewed with patient. Patient verbalizes understanding and wishes to proceed. Cryosurgery performed with Liquid Nitrogen via cryostat spray gun to left dorsal thumb, dorsal aspect of right hand, left arm, right lower eyelid Number of lesions treated: 4 Wound care instructions provided, pt verbalizes understanding Education and reassurance given that this is a benign result and requires no further treatment. Follow up PRN. I spent a total of 20 minutes on the date of service which included preparing to see the patient, [id number] patient care, completing clinical documentation, performing a medically appropriate examination, counseling and educating the patient/family/caregiver and ordering medications, tests, or procedures By signing my name below, I, Renetta Garrison, attest that this documentation has been prepared under the direction and in the presence of Dr. Enriquez. Electronically signed, Rachelle Lambert May 29, 2022 8:19 AM I agree with the Chief Complaint, ROS, and Past Histories independently gathered by the clinical client technical support associate and the remaining scribed note accurately describes my personal service to the patient. Cyn Enriquez MD documented in this encounterOur [facility] History and physical note * Nelly Perez MD - 05/08/2022 1:00 PM EDT EGDbanding General: well appearing no distress HEENT negative no icterus Lungs CTA bessy COR rrm- Abdomen benign Extremities no edema no spiders no palmar erythema ASSISTANT TRACK AND FIELD COACH no asterixis , a+0 X3 Nelly Lombardi MD documented in this encounterOur Lady Of [facility]cy [facility] [place]10-04-2022 Nurse Note* Leti Rodriguez RN - 05/08/2022 12:15 PM EDT Anesthesia notified of need for consent for Platelet transfusion. Dr. Azar at bedside, discussing benefit/ risks with transfusion with patient and patient spouse. Plan to discontinue transfusion order at this time, Will reassess during procedure if needed per Dr. Azar. documented in this encounterOur Lady Of [facility] [place]10-03-2022 Miscellaneous Notes* Telephone Encounter - Michelle Bennett RN - 05/07/2022 9:50 AM EDT Pt's needs addressed in a different encounter. See MyChart encounter from 05/02/22. documented in this encounterOur Lady Of [facility] [place]10-03-2022 History of Present illness Narrative* Leonel Lizarraga PA-C - 05/07/2022 8:30 AM EDT VIRTUAL VISIT FOLLOW UP I had a virtual visit with Mr. Snow today for follow up of cirrhosis. UPDATED HISTORY: CC: follow up HPI: Mr. Snow is a 51 year old with past medical history of cirrhosis 2/2 alcohol use c/b elevated LFTs, acute on chronic anemia, portal HTN, thrombocytopenia, presenting today for follow up of cirrhosis. Patient was last seen by myself 11/27/21. At last visit: Reviewed pathophysiology of cirrhosis along with signs of hepatic decompensation and significance of the MELD/CTP scores. He continues to do well and remains abstinent from alcohol, very committed tohis sobriety. PLAN -Most recent MELD 7, repeat 6 months. -Ascites: none, not on diuretics, encouraged <2,000 mg daily -HE: none, not on therapy, encouraged 3-4 protein sources daily -EV screen: due now, last EGD 10/2020 with grade 1 EV. Start on hydrophobic statin if still with signs of pHTN on EGD -HCC screen: UTD 08/2021, repeat RUQ US February 2022 -Liver transplant: too well, continue to evaluate -colonoscopy: UTD 06/2019, repeat 5 years -immunizations: needs HBV vaccination, check immunity for HAV with next labs and vaccinate if needed Will need to work on weight loss, focus on lean protein/fruit/veggies/complex carbs Decrease number of non-alcoholic drinks/popcorn nightly Interval hx: Recommended to have repeat CBC due to thrombocytopenia and potential for PLT transfusion prior to upcoming EGD Repeat PLT count 56 today Has been difficult to reach over the phone, per endoscopy MELD 9 (up from 7) Denies new medical problems No new medications/supplements Weight down to 205 pounds, unintentionally Appetite is good Feeling well today Denies current issues with ascites, HE, hematemesis, hematochezia, confusion, dark urine, terrance colored stool, nausea, vomiting, weight loss, early satiety, bloating, dysphagia, odynophagia, change inbm. Remaining systems reviewed and are negative. PAST MEDICAL HISTORY Diagnosis Date Alcoholism (HCC) Gallstones Gastropathy PUD (peptic ulcer disease) Thrombocytopenia (HCC) PAST SURGICAL HISTORY Procedure Laterality Date COLONOSCOPY 2013 polyp EGD 2012 EGD 01/20/2018 DONE ORTHOPEDICS SURGERY HX teen R knee arthroscopy FAMILY HISTORY Problem Relation Age of Onset Diabetes Mother other (Cirrhosis) Mother other (Esophageal Varicies) Mother other (Lung Cancer) Father Social History Tobacco Use Smoking status: Former Years: 14.00 Types: Cigarettes Start date: 08/06/2000 Smokeless tobacco: Current Types: Chew Vaping Use Vaping Use: Never used Substance Use Topics Alcohol use: Not Currently Comment: alcoholic Drug use: No Current Outpatient Medications Medication Sig Dispense Refill sildenafil (VIAGRA) 100 mg tablet Take 1 tablet by mouth as needed. 30-60 minutes before sexual intercourse 15 tablet 5 buPROPion XL (WELLBUTRIN XL) 150 mg 24 hr tablet Take 1 tablet by mouth once daily. [address] (PROTONIX) 40 mg tablet Take 1 tablet by mouth once daily. 90 tablet 3 magnesium oxide (MAG-OX) 400 mg (241.3 mg magnesium) tablet Take 1 tablet by mouth once daily. 90 tablet 3 thiamine (VITAMIN B1) 100 mg tablet 1 tablet by ORAL/FEEDING TUBE route three times daily. 270 tablet 3 ferrous gluconate 324 mg (37.5 mg iron) tablet Take 1 tablet by mouth three times daily with meals.100 tablet 3 docusate sodium (COLACE) 100 mg capsule Take 1 capsule by mouth once daily. 90 capsule 3 therapeutic multivitamin-minerals (THERA M PLUS, FERROUS FUMARAT,) 9 mg iron-400 mcg tablet Take 1 tablet by mouth once daily. 30 tablet 2 No current facility-administered medications for this visit. ALLERGIES Allergen Reactions Dilaudid [Hydromorp* Mental Status Change, Itching REVIEW OF SYSTEMS: PAIN ASSESSMENT: Negative for pain, history of chronic pain, or current treatment for a chronic pain condition. GENERAL: Weight loss RESPIRATORY: Negative for cough, hemoptysis, wheezing, COPD, dyspnea or shortness of breath CARDIOVASCULAR: Negative for chest pain, leg swelling, hypertension, CHF or palpitations GI: No nausea, vomiting, or diarrhea : Not reviewed LAST CHALKER: Not reviewed PHYSICAL FINDINGS OF NOTE: General - Normal, healthy, cooperative, in no acute distress Able to interact verbally by video conference Psych - ORIENTATION: normal to time place, person and situation Mood/Affect: AFFECT AND MOOD: Normal Head/Neuro - Normal size and shape Facial appearance normal Pulmonary - respiratory effort normal Cardiovascular - patient describes extremities normal and warm Abdominal - Not performed Skin - abnormal lesions not visualized Motor - patient seen sitting with Normal appearing strength and coordination REVIEWED ITEMS RUQ US 02/26/22: IMPRESSION: 1. Cirrhotic liver morphology. No sonographic evidence of focal hepatic lesion. 2. Cholelithiasis. 3. Stable splenomegaly EGD 10/2020: Findings: Grade I varices were found in the lower third of the esophagus. They were very small. The exam of the esophagus was otherwise normal. The entire examined stomach was normal. The examined duodenum was normal. Impression: - Grade I esophageal varices. - Normal stomach. - Normal examined duodenum. - No specimens collected. Recommendation: - Discharge patient to home (with escort). - Resume previous diet indefinitely. MELD-Na score: 9 at 04/23/2022 4:21 PM MELD score: 9 at 04/23/2022 4:21 PM Calculated from: Serum Creatinine: 0.93 mg/dL (Using min of 1 mg/dL) at 04/23/2022 4:21 PM Serum Sodium: 139 mmol/L (Using max of 137 mmol/L) at 04/23/2022 4:21 PM Total Bilirubin: 1.1 mg/dL at 04/23/2022 4:21 PM INR(ratio): 1.2 at 04/23/2022 4:21 PM Age: 51 years IMPRESSION Mr. Snow is a 51 year old with past medical history of cirrhosis 2/2 alcohol use c/b elevated LFTs, acute on chronic anemia, portal HTN, thrombocytopenia, presenting today for follow up of cirrhosis. Reviewed pathophysiology of cirrhosis along with signs of hepatic decompensation and significance of the MELD/CTP scores. He continues to do well and remains abstinent from alcohol, very committedto his sobriety. RECOMMENDATION: Repeat MELD labs in 6 months EGD as scheduled tomorrow, PLT 56, should not require transfusion. Start on hydrophilic statin if still with signs of pHTN on EGD HCC Screening: RUQ US due 08/2022 with AFP Liver transplant: too well, continue to evaluate, continue alcohol abstinence Mediterranean diet/increased cardiovascular exercise with goal >45 minutes 5 days weekly Avoid liver detox cleanse/supplements Not to exceed 2,000 mg tylenol daily Recommend HAV/HBV vaccines (twinrix) Screening colonoscopy UTD 2018, repeat 5 years Follow up 6 months with labs/imaging prior. I spent a total of 30 minutes on the date of the service which included preparing to see the patient, [id number] patient care, completing clinical documentation, obtaining and/or reviewing separately obtained history, performing a medically appropriate examination, counseling and educating the pat ient/family/caregiver, ordering medications, tests, or procedures, communicating with other HCPs (not separately reported), and independently interpreting results (not separately reported). Leonel Lizarraga PA-C May 07, 2022 8:37 AM documented in this encounterOur Lady Of [facility] [place]09-24-2022 History and physical note * Deanna Ashraf PA-C - 04/28/2022 7:46 AM EDT PREANESTHESIA CONSULT CLINIC TELEHEALTH VISIT Patient has been identified by name and date of : Yes This is a virtual visit using [employer] video visit. It require patient-provider interaction for the medical decision making as documented below. Reason for contact: PACC visit Accompanied by: Self, Spouse Scheduled Surgery: EGD Subjective CHIEF COMPLAINT: Patient presents with: Anesthesia Consult HPI: This is a 51 year old male who presents with esophageal varices and low platelets. No n/v/d/c,black/bloody stools. He has alcoholic cirrhosis,w MELD score 9, four stomach ulcers and esophageal varices. ACTIVE PROBLEM LIST Thrombocytopenia (Hcc) Gastropathy Alcoholism (Hcc) Gallstones Pud (Peptic Ulcer Disease) Gerd (Gastroesophageal Reflux Disease) Ptsd (Post-Traumatic Stress Disorder) Bilateral Hand Numbness Cervicalgia Chronic Neck Pain Sprain of Anterior Talofibular Ligament of Right Ankle Lateral Epicondylitis of Left Elbow Arthralgia of Right Acromioclavicular Joint Anxiety Non Compliance With Medical Treatment Abdominal Pain Alcoholic Cirrhosis of Liver Without Ascites (Hcc) History of Esophageal Varices PAST MEDICAL HISTORY Diagnosis Date Alcoholism (HCC) Gallstones Gastropathy PUD (peptic ulcer disease) Thrombocytopenia (HCC) PAST SURGICAL HISTORY Procedure Laterality Date COLONOSCOPY 2013 polyp EGD 2012 EGD 01/20/2018 DONE ORTHOPEDICS SURGERY HX teen R knee arthroscopy FAMILY HISTORY Problem Relation Age of Onset Diabetes Mother other (Cirrhosis) Mother other (Esophageal Varicies) Mother other (Lung Cancer) Father Social History Tobacco Use Smoking status: Former Years: 14.00 Types: Cigarettes Start date: 08/06/2000 Smokeless tobacco: Current Types: Chew Vaping Use Vaping Use: Never used Substance Use Topics Alcohol use: Not Currently Comment: alcoholic Drug use: No ALLERGIES Allergen Reactions Dilaudid [Hydromorp* Mental Status Change, Itching MEDICATIONS: Current Outpatient Medications Medication Sig sildenafil (VIAGRA) 100 mg tablet Take 1 tablet by mouth as needed. 30-60 minutes before sexual intercourse buPROPion XL (WELLBUTRIN XL) 150 mg 24 hr tablet Take 1 tablet by mouth once daily. pantoprazole DR (PROTONIX) 40 mg tablet Take 1 tablet by mouth once daily. magnesium oxide (MAG-OX) 400 mg (241.3 mg magnesium) tablet Take 1 tablet by mouth once daily. thiamine (VITAMIN B1) 100 mg tablet 1 tablet by ORAL/FEEDING TUBE route three times daily. ferrous gluconate 324 mg (37.5 mg iron) tablet Take 1 tablet by mouth three times daily with meals. docusate sodium (COLACE) 100 mg capsule Take 1 capsule by mouth once daily. therapeutic multivitamin-minerals (THERA M PLUS, FERROUS FUMARAT,) 9 mg iron-400 mcg tablet Take 1 tablet by mouth once daily. No current facility-administered medications for this visit. COVID VACCINATION STATUS: Not vaccinated REVIEW OF SYSTEMS: Pain Assessment: General: slight weight loss (unintentional); no fevers, chills, nt sweats, malaise Neuro: No history of TIA's, stroke, ASSISTANT TRACK AND FIELD COACH tumor, impaired sensorium, hemiplegia, paraplegia or quadraplegia. No neurological symptoms or problems. Respiratory: No history of current cough or dyspnea, or pneumonia in the past 6 weeks. No history of respiratory/pulmonary symptoms or problems. Cardiovascular: No history of HTN requiring medication, no history of angina, CHF, MS, cardiac surgery or stents. Denies rest pain, gangrene or revascularization/amputation for PVD. No history of cardiovascular symptoms or problems. GI: See HPI : ED, no urinary sx; no KD Endocrine: low T, denies DM sx; no no thyroid problems/sx, slight weight loss recently Hematology: low platelets, no anemia, +bruises easily, but no other bleeding symptoms Oncology: No history of CA metastasis, chemo within 30 days, or radiotherapy within 90 days. Has not lost 10% of body wt in 6 months. No history of oncological symptoms or problems. Psych: Anxiety, Depression, memory problems Musculoskeletal: Negative for joint pain or swelling, back pain or muscle pain. Skin: Negative for lesions, rash and itching. Objective PHYSICAL EXAM: There were no vitals taken for this visit. VIDEO EXAM: (if completed, performed via video enabled technology) GENERAL: alert and appropriate, in no distress, well-hydrated, well nourished, and happy, smiling, interactive SKIN: no rash noted, anicteric HEAD: normocephalic, no abnormality or lesion noted EYES: no injection, visual acuity is grossly normal, and EOMI, anicteric NOSE: external nose normal without rhinorrhea OROPHARYNX: moist mucus membranes, no tonsillar hypertrophy/exudate, uvula midline and pharynx non-erythematous, lips, teeth and gums are without obvious lesion NECK: full ROM, no cervical LNs noted and thyroid without tenderness or obvious enlargement/mass RESPIRATORY: breathing non-labored, no grunting/flaring/retractions, and or wheezing CHEST: equal chest rise with normal respiratory effort HEART: pt unable to find pulse EXTREMITIES: no c/c/e/e hand,feet/shins NEUROLOGIC: CN II-XII grossly intact, normal speech Diagnostic tests reviewed for today's visit: Lab Value Units Date High Low HB 14.0 g/dL 04/23/2022 17.0 13.0 HCT 40.0 % 04/23/2022 51.0 39.0 WBC 3.00 k/uL 04/23/2022 11.00 3.70 PLT 45 k/uL 04/23/2022 400 150 NA 139 mmol/L 04/23/2022 144 136 K 3.9 mmol/L 04/23/2022 5.1 3.7 GLUC 137 mg/dL 04/23/2022 99 74 BUN 9 mg/dL 04/23/2022 24 9 CREAT 0.93 mg/dL 04/23/2022 1.22 0.73 PTSEC 13.0 sec 04/23/2022 13.0 9.7 INR 1.2 no uni* 04/23/2022 1.3 0.9 APTT No results within date range. ALT 35 U/L 04/23/2022 54 10 AST 49 U/L 04/23/2022 40 14 TBILI 1.1 mg/dL 04/23/2022 1.3 0.2 TSH No results within date range. Lab Value Units Date High Low HCGQT No results within date range. UHCG No results within date range. HCG, BODY* No results within date range. Lab Value Units Date High Low ABORHD No results within date range. ABSCREEN No results within date range. Hemoglobin A1C (%) Date Value 10/26/2021 5.3 Most recent labs Impression/Recommendations ASSESSMENT: (Z01.818) Preop examination (primary encounter diagnosis) (K21.9) Gastroesophageal reflux disease without esophagitis On PPI, denies symptoms. (K70.30) Alcoholic cirrhosis of liver without ascites (HCC) MELD 9, no obvious jaundice. (F10.20) Alcoholism (HCC) In remission over a year (Z87.19) History of esophageal varices No obvious bleeding, platelets are low, NARROW FABR[employer] WEAVER planned. (K27.9) PUD (peptic ulcer disease) No obvious bleeding, platelets are low, NARROW FABR[employer] WEAVER planned., on PPI. (D69.6) Thrombocytopenia (HCC) 49 on recent labs ordered by surgeon, EGD planned to r/o bleeding varices. (D72.810) Lymphopenia Mildly low METS: Climb a flight of stairs or walk up a hill (5.50 METs) Patient denies any chest pain or undue shortness of breath with the above physical activity. ASA Class: 3 ANESTHESIA FINDINGS: Intubation History: No history of difficult intubation Significant Anesthesia Considerations: None Airway Exam: General: Normal appearance Mallampati Score is CLASS II ULBT: Class I - Lower incisors can bite the upper lip above the celeste line Neck: Normal appearance and function, Distance from hyoid to mentum during neck extension is at least 3 finger breaths Mouth: Normal tongue size and Mouth opening greater than 2 finger breaths Dentition: Intact Airway History: No abnormal airway history STOP BANG Score: Criteria: Age over 50 (51 year old) Neck circumference > 15.75 inches Male gender Score = 3 PLAN: This patient is optimally prepared for surgery. CONSULTS: Patient does not require consults for optimization at this time. The Following Tests/Procedures Have Been Initiated: Labs not indicated per PACC protocol, EKG not indicated per PACC protocol Planned Anesthetic: MAC Instructions Given to Patient: Patient given verbal instructions and voices comprehension and compliance. Copy sent electronically via My Chart, email, or mobile device. I spent more than 21-40 minutes [id number] with the patient and over half the time was devoted tocounseling and/or coordination of care. This is a virtual visit. It required patient-provider interaction for the medical decision making as documented above. SIGNATURE: Deanna Ashraf PA-C PATIENT NAME: Galindo Snow DATE: April 28, 2022 TIME: 8:03 AM PAGER/CONTACT #: documented in this encounterOur Lady Of [facility]09-15-2022 Miscellaneous Notes* Telephone Encounter - Brooke Miguel RN - 04/19/2022 8:21 AM EDT Discussed with patient's , Anca, at patient's request how to taper zoloft. She verbalized understanding. * Telephone Encounter - Jeannie Lopez - 04/18/2022 4:21 PM EDT Patient's asking for a call back from nurse with more detailed instructions for tapering off zoloft. Please call at [phone] * Telephone Encounter - Brooke Miguel RN - 04/18/2022 1:42 PM EDT Called patient regarding medication question. Per Dr. aJck's note, looks like patient was to taper off zoloft and begin taking wellbutrin. No answer. LVM to call office back. documented in this encounterOur Lady Of [facility] [place]09-13-2022 History of Present illness Narrative* Terese Jack MD - 04/17/2022 3:19 PM EDT Outpatient Internal Medicine - [facility] Patient name: Galindo Snow Medical Record: [id number] cc: Patient presents with: Recheck 51 year old male with ACTIVE PROBLEM LIST Thrombocytopenia (Hcc) Gastropathy Alcoholism (Hcc) Gallstones Pud (Peptic Ulcer Disease) Gerd (Gastroesophageal Reflux Disease) Ptsd (Post-Traumatic Stress Disorder) Bilateral Hand Numbness Cervicalgia Chronic Neck Pain Sprain of Anterior Talofibular Ligament of Right Ankle Lateral Epicondylitis of Left Elbow Arthralgia of Right Acromioclavicular Joint Anxiety Non Compliance With Medical Treatment Abdominal Pain Alcoholic Cirrhosis of Liver Without Ascites (Hcc) History of Esophageal Varices here for f/u for chronic disease/disorder mgmt. Comes in for a compaint of erectile dysfunction. Will get half-mast erections. Iris has not worked for him in the past. Shares details around anxiety. Current Outpatient Medications Medication Sig pantoprazole DR (PROTONIX) 40 mg tablet Take 1 tablet by mouth once daily. magnesium oxide (MAG-OX) 400 mg (241.3 mg magnesium) tablet Take 1 tablet by mouth once daily. thiamine (VITAMIN B1) 100 mg tablet 1 tablet by ORAL/FEEDING TUBE route three times daily. ferrous gluconate 324 mg (37.5 mg iron) tablet Take 1 tablet by mouth three times daily with meals. docusate sodium (COLACE) 100 mg capsule Take 1 capsule by mouth once daily. sertraline (ZOLOFT) 50 mg tablet Take 1 tablet by mouth once daily. therapeutic multivitamin-minerals (THERA M PLUS, FERROUS FUMARAT,) 9 mg iron-400 mcg tablet Take 1 tablet by mouth once daily. No current facility-administered medications for this visit. PE: BP 150/50 Pulse 75 Temp 36.8 C (98.3 F) Resp 16 Wt 93.2 kg (205 lb 6.4 oz) BMI 30.46 kg/m Gen: No acute distress, well developed, well nourished CV: RRR, S1S2nl, m/r/g, CR <2s Lungs: CTAB, nl resp effort Impression: (N52.2) Drug-induced erectile dysfunction (primary encounter diagnosis) (F41.9, F32.A) Anxiety and depression (N52.9) Erectile dysfunction, unspecified erectile dysfunction type Plan: Change Zoloft to Wellbutrin. ?SSRI induced ED Viagra prescribed Check testosterone levels Medical Decision Making: Problems: Moderate: New problem with uncertain prognosis Data: Unique test(s) ordered: 1 Risk: Moderate: Drug management Medical Decision Making Level: 4 - Moderate RTC in 2 mo Luke Jack MD Internal Medicine - Primary Care Preferred pronouns: She/They [facility] 04/17/2022 3:19 PM documented in this encounterOur Lady Of [facility] [place]08-10-2022 Instructions* Patient Instructions* Juliocesar Reyes PA-C - 03/14/2022 12:50 PM EDT Trial of norflex 100 mg - take 1 capsule twice daily. Cervical MRI - you may call [phone] to schedule. I will reach out to you upon completion of MRI for review and next steps. Thank you, Juliocesar Reyes PA-C [phone] documented in this encounterOur Lady Of [facility] [place]08-10-2022 History of Present illness Narrative* Juliocesar Reyes PA-C - 03/14/2022 12:42 PM EDT [facility] DATE OF SERVICE: 03/14/2022 DATE OF LAST VISIT: 01/25/2021 SUBJECTIVE: HPI: Continues with neck pain and headaches. Patient describes headaches located at the back of his head(occipital region). He states that pain and headaches have worsened despite ongoing conservative management. Denies radiating arm pain, numbness, tingling, arm weakness, difficulty walking, dexterity issues, significant balance instability or bowel / bladder dysfunction. Pain is random and intermittent without significant aggravating or alleviating factors. CMT: -Tylenol -Robaxin -Home Exercise Program --Provided patient with Home Exercise Program targeted at Cervical Spine at our last office visit (01/25/2021) --He performs stretching and strengthening exercises 3-4 times weekly -Previously trialed gabapentin (did not tolerate - swelling) PAIN EVALUATION 03/14/2022 1236 Pain Level: 4 Pain Location: Neck-Posterior Description: Pressure Duration Amount of Time: 1 Duration Units: Years Frequency: Continuous Intervention/Comfort measure: Medication AMBULATORY STATUS: Independent Community Distances ANTIPLATELET OR ANTICOAGULATION STATUS: No PREVIOUS CONSERVATIVE TREATMENTS: Muscle Relaxants Analgesics Membrane Stabilizers Home Exercise Program - Physician Guided REVIEW OF SYSTEMS: GENERAL: No weight loss or malaise MUSCULOSKELETAL: Negative for joint pain, swelling or muscle pain NEURO: No history of headaches, syncope, paralysis, seizures or tremors MEDICATIONS: pantoprazole DR (PROTONIX) 40 mg tablet Take 1 tablet by mouth once daily. magnesium oxide (MAG-OX) 400 mg (241.3 mg magnesium) tablet Take 1 tablet by mouth once daily. thiamine (VITAMIN B1) 100 mg tablet 1 tablet by ORAL/FEEDING TUBE route three times daily. ferrous gluconate 324 mg (37.5 mg iron) tablet Take 1 tablet by mouth three times daily with meals. docusate sodium (COLACE) 100 mg capsule Take 1 capsule by mouth once daily. sertraline (ZOLOFT) 50 mg tablet Take 1 tablet by mouth once daily. therapeutic multivitamin-minerals (THERA M PLUS, FERROUS FUMARAT,) 9 mg iron-400 mcg tablet Take 1 tablet by mouth once daily. orphenadrine ER (NORFLEX) 100 mg tablet Take 1 tablet by mouth twice daily. Patient Entered Questionnaires PROMIS Score Percentiles PROMIS Global Health Scale 05/31/2015 09/30/2020 Physical Health Percentile 22* 78 Mental Health Percentile 63 34 Percentiles provide an indication of how the patient's score ranks in relation to the general population. Higher percentile rankings indicate better function/quality of life. 50th percentile is the average of the general population and indicates half of respondents had a worse score. Depression Screening: PHQ-9 05/31/2015 Score 1 PHQ-9 Self-harm Question 05/31/2015 Thoughts that you would be better off , or of hurting yourself in some way 0 PHQ-9 Self-Harm (Item 9) response options: 0 Not at all 1 Several days 2 More than half the days 3 Nearly every day PHQ-9 Levels: 0-4 No to mild depression 5-9 Mild depression 10-14 Moderate depression 15-19 Moderately severe depression 20-27 Severe depression OBJECTIVE: PHYSICAL EXAM: BP 168/71 Pulse 70 Wt 211 lb (95.7kg) GENERAL APPEARANCE: Well nourished, well developed, and no apparent distress. NEURO PSYCH: Patient oriented to person, place, and time. Mood pleasant. Benign affect. MUSCULOSKELETAL VISUAL INSPECTION CERVICAL: WNL THORACIC: WNL LUMBAR: WNL MOTOR: 5/5 in all muscle groups. SENSORY: Normal sensory exam GAIT: Normal. DATA REVIEW:Diagnostic tests reviewed for today's visit, films/specimens were personally reviewed by me: [facility] records independently reviewed Images independently reviewed with the patient ASSESSMENT/PLAN (M48.02) Spinal stenosis of cervical region (primary encounter diagnosis) (M54.2) Neck pain (G44.221) Chronic tension-type headache, intractable (M47.812) CS (cervical spondylosis) Galindo Snow is a 51 year old male presenting today for follow-up. He continues with neck pain and headaches - which have worsened since last office visit despite conservative management including medications and home exercise program. Recommend trial of norflex 100 mg BID. Due to ongoing neck pain and headaches, recommend cervical MRI to determine cause of ongoing pain despite conservative management. Pending MRI results, consider cervical epidural steroid injection versus occipital nerve block. Galindo Snow has a condition that requires further workup. Medications: Norflex 100 mg BID Imaging: Cervical MRI Without Contrast Failure of conservative treatments as listed in HPI Follow up: Following above The majority of the visit was spent counseling and/or coordinating care for the patient. The patient was counseled regarding neck pain. Total face to face time was 30 minutes. SIGNATURE: Juliocesar Reyes PA-C PATIENT NAME: Galindo Snow DATE: March 14, 2022 TIME: 12:42 PM PAGER:[phone] [facility] History of Present illness Narrative* RT Magdaleno(R) - 02/26/2022 9:25 AM EDT Radiology Service Progress Note PATIENT NAME: Galindo Snow DATE OF SERVICE: February 26, 2022 TIME: 9:25 AM PATIENT IDENTITY VERIFICATION COMPLETED USING TWO (2) IDENTIFIERS: Name and Date of confirmedby patient verbally. FALL SCREENING: Has the patient had 2 falls in the last year or 1 fall with injury or currently using an Ambulatory Assistive Device (Walker, Cane, Wheelchair, Crutches, etc.)? No PATIENT GENDER DATA: Male PATIENT RELEVANT IMPLANT DATA REVIEWED: Not Applicable RADIOLOGY DEPARTMENT: Ultrasound PERIPHERAL IV DATA: Not applicable SIGNED BY: Chetna Sagastume RDMS, RVT February 26, 2022 9:25 AM documented in this encounter[facility] Miscellaneous Notes* Telephone Encounter - Andie Malave - 02/21/2022 10:52 AM EDT LVM for patient regarding the need to reschedule EGD appt with Nelly Perez MD on 03/20/2022. [facility] message sent. documented in this [facility]04-25-2022 Instructions* Patient Instructions* Leonel Lizarraga PA-C - 11/27/2021 8:35 AM EDT Repeat blood work April 2022 Liver ultrasound due February 2022 Schedule upper endoscopy with Dr. Loyda Perez at [place] Follow up with me in 6 months Call with any questions at [phone] documented in this [facility] History of Present illness Narrative* Leonel Lizarraga PA-C - 11/27/2021 8:30 AM EDT NAME: Galindo Snow CLINIC NO: [id number] REFERRING PHYSICIAN: Leonel Lizarraga PRESENTING COMPLAINT: Patient presents with: Established Patient Follow-Up: Alcoholic cirrhosis of liver without ascites HPI: Galindo Snow is a 51 year old male with pmhx of cirrhosis 2/2 alcohol use c/b elevated LFTs,acute on chronic anemia, portal HTN, presenting today for cirrhosis. Galindo Snow was last seen by myself 03/27/21. At last visit: Since last visit he has done well, remains abstinent from alcohol since 08/2020 without relapse. Reviewed pathophysiology of cirrhosis along with signs of hepatic decompensation and significance of the MELD score and potential indication for OLT. Encouraged continued abstinence from alcohol to prevent hepatic decompensation. PLAN -Most recent MELD 8, repeat at next visit in 5-6 months. -Ascites: none, encouraged <2,000 mg sodium diet -HE: none, encouraged high protein diet -EV screen: UTD 10/11/20 with grade 1 ev, repeat 10/2021 -HCC screen: UTD, repeat RUQ US with AFP 08/2021 -Liver transplant: too well with low MELD, continue to monitor -colonoscopy: UTD 2018, repeat 5 years -immunizations: consider HBV vaccine at next visit Interval hx: Doing well, remains abstinent from alcohol for over 1 year, no relapse Drinks non-alcoholic drinks, 4-5 nightly Eating a lot of white cheddar smart food popcorn Has gained weight since last visit, new for him Has 2 brothers who still drink, he wishes they would stop Father was an alcoholic Remains committed to his sobriety, feels great, has more energy and able to do more in the day PT denies current issues with jaundice, disorientation/confusion, ascites, hematemesis, hematochezia, dark urine, terrance colored stools. Remaining systems reviewed and are negative. REVIEW OF SYSTEMS GENERAL: +weight gain HEENT: Negative for severe headaches. NECK: Negative for lumps, masses or pain. RESPIRATORY: Negative for coughing, wheezing or significant dyspnea. CARDIOVASCULAR: Negative for chest pain or heart palpitations. GASTROINTESTINAL: Negative for rectal bleeding or black tarry stools. GENITOURINARY: Negative for dysuria or urinary incontinence and Not reviewed. MUSCULOSKELETAL: Negative for unexplained joint pains, dislocations or fractures. NEUROLOGIC: Negative for unexplained weakness or vertigo. SKIN: Negative for new lesions or rashes. ENDOCRINE: Negative for cold or heat intolerance . Current Outpatient Medications Medication Sig Dispense Refill pantoprazole DR (PROTONIX) 40 mg tablet Take 1 tablet by mouth once daily. 90 tablet 3 magnesium oxide (MAG-OX) 400 mg (241.3 mg magnesium) tablet Take 1 tablet by mouth once daily. 90 tablet 3 thiamine (VITAMIN B1) 100 mg tablet 1 tablet by ORAL/FEEDING TUBE route three times daily. 270 tablet 3 ferrous gluconate 324 mg (37.5 mg iron) tablet Take 1 tablet by mouth three times daily with meals.100 tablet 3 docusate sodium (COLACE) 100 mg capsule Take 1 capsule by mouth once daily. 90 capsule 3 sertraline (ZOLOFT) 50 mg tablet Take 1 tablet by mouth once daily. 90 tablet 3 therapeutic multivitamin-minerals (THERA M PLUS, FERROUS FUMARAT,) 9 mg iron-400 mcg tablet Take 1 tablet by mouth once daily. 30 tablet 2 No current facility-administered medications for this visit. ALLERGIES Allergen Reactions Dilaudid [Hydromorp* Mental Status Change, Itching Social History Tobacco Use Smoking status: Former Smoker Years: 14.00 Types: Cigarettes Start date: 08/06/2000 Smokeless tobacco: Current User Types: Chew Vaping Use Vaping Use: Never used Substance Use Topics Alcohol use: Not Currently Comment: alcoholic Drug use: No PAST MEDICAL HISTORY Diagnosis Date Alcoholism (HCC) Gallstones Gastropathy PUD (peptic ulcer disease) Thrombocytopenia (HCC) @SHX@ FAMILY HISTORY Problem Relation Age of Onset Diabetes Mother other (Cirrhosis) Mother other (Esophageal Varicies) Mother other (Lung Cancer) Father PHYSICAL EXAM BP 140/62 Wt 206 lb 14.4 oz (93.8kg) General Appearance: Well appearing, alert, in no acute distress, well-hydrated, well nourished. Eyes: PERRLA, conjunctiva and sclera normal Oropharynx: covered by mask Lungs:breathing comfortably Heart: regular rate and rhythm Abdomen: not distended Extremities: no cyanosis or edema Skin: no jaundice, no spider angiomas, no palmar erythema Neuro:alert, oriented x 3, pleasant and in no acute distress, no asterixis Recent Labs: Hemoglobin (g/dL) Date Value 10/26/2021 14.2 02/09/2021 12.8 Hematocrit (%) Date Value 10/26/2021 41.9 02/09/2021 37.4 WBC (k/uL) Date Value 10/26/2021 4.85 02/09/2021 4.49 Glucose (mg/dL) Date Value 10/26/2021 116 02/09/2021 97 Potassium (mmol/L) Date Value 10/26/2021 4.1 02/09/2021 4.1 Sodium (mmol/L) Date Value 10/26/2021 143 02/09/2021 140 Chloride (mmol/L) Date Value 10/26/2021 107 02/09/2021 107 CO2 (mmol/L) Date Value 10/26/2021 22 02/09/2021 27 Creatinine (mg/dL) Date Value 10/26/2021 0.99 02/09/2021 1.02 BUN (mg/dL) Date Value 10/26/2021 16 02/09/2021 13 Anion Gap (mmol/L) Date Value 10/26/2021 14 02/09/2021 6 Calcium (mg/dL) Date Value 02/09/2021 8.9 Calcium, Total (mg/dL) Date Value 10/26/2021 9.1 Albumin (g/dL) Date Value 10/26/2021 4.4 Bilirubin, Total (mg/dL) Date Value 10/26/2021 0.5 Bilirubin, Conjugated (mg/dL) Date Value 10/26/2021 <0.2 Alkaline Phosphatase (U/L) Date Value 10/26/2021 87 AST (U/L) Date Value 10/26/2021 31 ALT (U/L) Date Value 10/26/2021 28 Protein, Total (g/dL) Date Value 10/26/2021 7.2 MELD-Na score: 7 at 10/26/2021 8:06 AM MELD score: 7 at 10/26/2021 8:06 AM Calculated from: Serum Creatinine: 0.99 mg/dL (Using min of 1 mg/dL) at 10/26/2021 8:05 AM Serum Sodium: 143 mmol/L (Using max of 137 mmol/L) at 10/26/2021 8:05 AM Total Bilirubin: 0.5 mg/dL (Using min of 1 mg/dL) at 10/26/2021 8:05 AM INR(ratio): 1.1 at 10/26/2021 8:06 AM Age: 51 years Imaging: RUQ US 08/30/21: IMPRESSION: Findings are suggestive of liver cirrhosis. Splenomegaly. Gallbladder stone. RUQ US 08/29/20: IMPRESSION: Hepatic steatosis. No focal hepatic lesion. Cholelithiasis, no other sonographic findings of calculus cholecystitis. CT abd/pel w cont 08/29/20: IMPRESSION: Cirrhosis with portal hypertension and splenomegaly with portosystemic collaterals. Cholelithiasis. There is a small stone in the region of the gallbladder neck. Small amount of pericholecystic fluid. If there is concern for acute biliary pathology, consider ultrasound. Details and incidental findings as discussed. EGD 01/01/20: Findings: Small (< 5 mm) varices were found in the lower third of the esophagus. The exam of the esophagus was otherwise normal. Localized moderate inflammation characterized by erosions and erythema was found in the gastric antrum. Biopsies were taken with a cold forceps for Helicobacter pylori testing. The exam of the stomach was otherwise normal. The duodenal bulb and second portion of the duodenum were normal. Impression: - Small (< 5 mm) esophageal varices. - Gastritis. Biopsied. - Normal duodenal bulb and second portion of the duodenum. Recommendation: - Patient has a contact number available for emergencies. The signs and symptoms of potential delayed complications were discussed with the patient. Return to normal activities tomorrow. Colonoscopy 06/2019 with repeat 5 years Assessment IMPRESSION Galindo Snow is a 51 year old male with pmhx of cirrhosis 2/2 alcohol use c/b elevated LFTs, acute on chronic anemia, portal HTN, presenting today for cirrhosis. Reviewed pathophysiology of cirrhosis along with signs of hepatic decompensation and significance of the MELD/CTP scores. He continues to do well and remains abstinent from alcohol, very committed to his sobriety. PLAN -Most recent MELD 7, repeat 6 months. -Ascites: none, not on diuretics, encouraged <2,000 mg daily -HE: none, not on therapy, encouraged 3-4 protein sources daily -EV screen: due now, last EGD 10/2020 with grade 1 EV. Start on hydrophobic statin if still with signs of pHTN on EGD -HCC screen: UTD 08/2021, repeat RUQ US February 2022 -Liver transplant: too well, continue to evaluate -colonoscopy: UTD 06/2019, repeat 5 years -immunizations: needs HBV vaccination, check immunity for HAV with next labs and vaccinate if needed Will need to work on weight loss, focus on lean protein/fruit/veggies/complex carbs Decrease number of non-alcoholic drinks/popcorn nightly Follow up in 6 months. Please contact sooner if you have questions or problems develop. I spent a total of 39 minutes on the date of the service which included preparing to see the patient, [id number] patient care, completing clinical documentation, obtaining and/or reviewing separately obtained history, performing a medically appropriate examination, counseling and educating the pat ient/family/caregiver, ordering medications, tests, or procedures, communicating with other HCPs (not separately reported) and independently interpreting results (not separately reported). Leonel Lizarraga PA-C November 27, 2021 8:59 AM documented in this encounter[facility] History of Past illness Narrative* Problem Noted Date Resolved Date GI bleed 12/30/2019 01/01/2020 documented as of this encounter (statuses as of 11/27/2021) [facility] of Past illness Narrative* Problem Noted Date Resolved Date GI bleed 12/30/2019 01/01/2020 documented as of this encounter (statuses as of 02/26/2022) [facility] of Past illness Narrative* Problem Noted Date Resolved Date GI bleed 12/30/2019 01/01/2020 documented as of this encounter (statuses as of 02/27/2022) [facility] of Past illness Narrative* Problem Noted Date Resolved Date GI bleed 12/30/2019 01/01/2020 documented as of this encounter (statuses as of 03/14/2022) [facility] of Past illness Narrative* Problem Noted Date Resolved Date GI bleed 12/30/2019 01/01/2020 documented as of this encounter (statuses as of 04/17/2022) [address]2020 History of Past illness Narrative* Problem Noted Date Resolved Date GI bleed 12/30/2019 01/01/2020 documented as of this encounter (statuses as of 04/19/2022) [facility] of Past illness Narrative* Problem Noted Date Resolved Date GI bleed 12/30/2019 01/01/2020 documented as of this encounter (statuses as of 04/28/2022) [facility] of Past illness Narrative* Problem Noted Date Resolved Date GI bleed 12/30/2019 01/01/2020 documented as of this encounter (statuses as of 05/07/2022) [facility] of Past illness Narrative* Problem Noted Date Resolved Date GI bleed 12/30/2019 01/01/2020 documented as of this encounter (statuses as of 05/07/2022) [facility] of [facility] illness Narrative* Problem Noted Date Resolved Date GI bleed 12/30/2019 01/01/2020 documented as of this encounter (statuses as of 05/07/2022) [address]2020 History of Past illness Narrative* Problem Noted Date Resolved Date GI bleed 12/30/2019 01/01/2020 documented as of this encounter (statuses as of 05/09/2022) [facility] Narrative* Problem Noted Date Resolved Date GI bleed 12/30/2019 01/01/2020 documented as of this encounter (statuses as of 05/10/2022) [address]2020 History of Past illness Narrative* Problem Noted Date Resolved Date GI bleed 12/30/2019 01/01/2020 documented as of this encounter (statuses as of 05/26/2022) [address]2020 History of Past illness Narrative* Problem Noted Date Resolved Date GI bleed 12/30/2019 01/01/2020 documented as of this encounter (statuses as of 05/29/2022) [address]2020 History of Past illness Narrative* Problem Noted Date Resolved Date GI bleed 12/30/2019 01/01/2020 documented as of this encounter (statuses as of 06/05/2022) [address]2020 History of Past illness Narrative* Problem Noted Date Resolved Date GI bleed 12/30/2019 01/01/2020 documented as of this encounter (statuses as of 06/06/2022) [place] [address] History of Past illness Narrative* Problem Noted Date Resolved Date GI bleed 12/30/2019 01/01/2020 documented as of this encounter (statuses as of 06/08/2022) [address] History of Past illness Narrative* Problem Noted Date Resolved Date GI bleed 12/30/2019 01/01/2020 documented as of this encounter (statuses as of 06/08/2022) [address] History of Past illness Narrative* Problem Noted Date Resolved Date GI bleed 12/30/2019 01/01/2020 documented as of this encounter (statuses as of 06/26/2022) [address] History of Past illness Narrative* Problem Noted Date Resolved Date GI bleed 12/30/2019 01/01/2020 documented as of this encounter (statuses as of 06/26/2022) [address] History of Past illness Narrative* Problem Noted Date Resolved Date GI bleed 12/30/2019 01/01/2020 documented as of this encounter (statuses as of 07/04/2022) [place] [address] History of Past illness Narrative* Problem Noted Date Resolved Date GI bleed 12/30/2019 01/01/2020 documented as of this encounter (statuses as of 07/05/2022) [place] [address] History of Past illness Narrative* Problem Noted Date Resolved Date GI bleed 12/30/2019 01/01/2020 documented as of this encounter (statuses as of 07/05/2022) [place] [address] History of Past illness Narrative* Problem Noted Date Resolved Date GI bleed 12/30/2019 01/01/2020 documented as of this encounter (statuses as of 07/09/2022) [address] History of Past illness Narrative* Problem Noted Date Resolved Date GI bleed 12/30/2019 01/01/2020 documented as of this encounter (statuses as of 08/11/2022) [place] [address] History of Past illness Narrative* Problem Noted Date Resolved Date GI bleed 12/30/2019 01/01/2020 documented as of this encounter (statuses as of 08/20/2022) [address] History of Past illness Narrative* Problem Noted Date Resolved Date GI bleed 12/30/2019 01/01/2020 documented as of this encounter (statuses as of 08/23/2022) [address] History of Past illness Narrative* Problem Noted Date Resolved Date GI bleed 12/30/2019 01/01/2020 documented as of this encounter (statuses as of 09/06/2022) [place] [address] History of Past illness Narrative* Problem Noted Date Resolved Date GI bleed 12/30/2019 01/01/2020 documented as of this encounter (statuses as of 09/18/2022) [address] History of Past illness Narrative* Problem Noted Date Resolved Date GI bleed 12/30/2019 01/01/2020 documented as of this encounter (statuses as of 09/21/2022) [place] [address] History of Past illness Narrative* Problem Noted Date Resolved Date GI bleed 12/30/2019 01/01/2020 documented as of this encounter (statuses as of 09/25/2022) [address] History of Past illness Narrative* Problem Noted Date Resolved Date GI bleed 12/30/2019 01/01/2020 documented as of this encounter (statuses as of 10/02/2022) [address] History of Past illness Narrative* Problem Noted Date Resolved Date GI bleed 12/30/2019 01/01/2020 documented as of this encounter (statuses as of 10/05/2022) [place] [address] History of Past illness Narrative* Problem Noted Date Resolved Date GI bleed 12/30/2019 01/01/2020 documented as of this encounter (statuses as of 10/09/2022) [address] History of Past illness Narrative* Problem Noted Date Resolved Date GI bleed 12/30/2019 01/01/2020 documented as of this encounter (statuses as of 10/10/2022) [place] [address] History of Past illness Narrative* Problem Noted Date Resolved Date GI bleed 12/30/2019 01/01/2020 documented as of this encounter (statuses as of 10/13/2022) [address]2020 History of Past illness Narrative* Problem Noted Date Resolved Date GI bleed 12/30/2019 01/01/2020 documented as of this encounter (statuses as of 10/18/2022) [facility] Narrative* Problem Noted Date Resolved Date GI bleed 12/30/2019 01/01/2020 documented as of this encounter (statuses as of 11/15/2022) [address]2020 History of Past illness Narrative* Problem Noted Date Resolved Date GI bleed 12/30/2019 01/01/2020 documented as of this encounter (statuses as of 11/16/2022) [address]2020 History of Past illness Narrative* Problem Noted Date Resolved Date GI bleed 12/30/2019 01/01/2020 documented as of this encounter (statuses as of 11/22/2022) [facility] of Past illness Narrative* Problem Noted Date Resolved Date GI bleed 12/30/2019 01/01/2020 documented as of this encounter (statuses as of 12/12/2022) [address] History of Past illness Narrative* Problem Noted Date Resolved Date GI bleed 12/30/2019 01/01/2020 documented as of this encounter (statuses as of 12/13/2022) [address]2020 History of Past illness Narrative* Problem Noted Date Resolved Date GI bleed 12/30/2019 01/01/2020 documented as of this encounter (statuses as of 01/08/2023) [address]2020 History of Past illness Narrative* Problem Noted Date Resolved Date GI bleed 12/30/2019 01/01/2020 documented as of this encounter (statuses as of 01/24/2023) [address] History of Past illness Narrative* Problem Noted Date Diagnosed Date Resolved Date GI bleed 12/30/2019 01/01/2020 documented as of this encounter (statuses as of 02/15/2023) [address]2020 History of Past illness Narrative* Problem Noted Date Diagnosed Date Resolved Date GI bleed 12/30/2019 01/01/2020 documented as of this encounter (statuses as of 03/07/2023) [facility] of Past illness Narrative* Problem Noted Date Diagnosed Date Resolved Date GI bleed 12/30/2019 01/01/2020 documented as of this encounter (statuses as of 03/22/2023) [facility] Narrative* Problem Noted Date Diagnosed Date Resolved Date GI bleed 12/30/2019 01/01/2020 documented as of this encounter (statuses as of 03/26/2023) [facility] note* Diagnosis Alcoholic cirrhosis of liver without ascites (HCC)- Primary Alcoholic cirrhosis of liver Portal hypertension with esophageal varices (HCC) Portal hypertension Thrombocytopenia (HCC) Thrombocytopenia, unspecified [facility] Diagnosis Alcoholic cirrhosis of liver without ascites (HCC) Alcoholic cirrhosis of liver [facility]* Diagnosis Spinal stenosis of cervical region- Primary Spinal stenosis in cervical region Neck pain Cervicalgia Chronic tension-type headache, intractable Chronic tension type headache CS (cervical spondylosis) Cervical spondylosis without myelopathy documented in this encounter [facility] note* Diagnosis Drug-induced erectile dysfunction- Primary Impotence of organic origin Anxiety and depression Dysthymic disorder Erectile dysfunction, unspecified erectile dysfunction type documented in this encounter [facility] note* Diagnosis Preop examination- Primary Preoperative examination, unspecified Gastroesophageal reflux disease without esophagitis Esophageal reflux Alcoholic cirrhosis of liver without ascites (HCC) Alcoholic cirrhosis of liver Alcoholism (HCC) Other and unspecified alcohol dependence, unspecified drinking behavior History of esophageal varices Personal history of other diseases of digestive system PUD (peptic ulcer disease) Peptic ulcer, unspecified site, unspecified as acute or chronic, without mention of hemorrhage, perforation, or obstruction Thrombocytopenia (HCC) Thrombocytopenia, unspecified Lymphopenia Lymphocytopenia documented in this encounter [facility] note* Diagnosis Alcoholic cirrhosis of liver without ascites (HCC)- Primary Alcoholic cirrhosis of liver Portal hypertension with esophageal varices (HCC) Portal hypertension Thrombocytopenia (HCC) Thrombocytopenia, unspecified documented in this encounter [facility] note* Diagnosis Screening for prostate cancer- Primary Special screening for malignant neoplasm of prostate documented [facility]* Diagnosis History of esophageal varices Personal history of other diseases of digestive system [facility] Diagnosis Verruca vulgaris- Primary Viral warts, unspecified Seborrheic keratosis Other seborrheic keratosis documented in this encounter [facility]* Diagnosis Gastroesophageal reflux disease without esophagitis Esophageal reflux documented [facility]* Diagnosis Hypogonadism in male- Primary documented in this encounter [facility] Diagnosis Hypogonadism in male- Primary Elevated blood-pressure reading without diagnosis of hypertension Elevated blood pressure reading without diagnosis of hypertension documented [facility]* Diagnosis Anxiety and depression Dysthymic disorder documented in this encounter [facility]* Diagnosis COVID-19- Primary documented in this encounter [facility]* Diagnosis COVID-19 documented in this encounter [facility]* Diagnosis Essential hypertension- Primary Unspecified essential hypertension PTSD (post-traumatic stress disorder) Posttraumatic stress disorder Low testosterone in male documented [facility]* Diagnosis Gastroesophageal reflux disease without esophagitis Esophageal reflux documented in this encounter [facility]* Diagnosis Low testosterone in male- Primary documented [facility] this [facility]* Diagnosis Low testosterone in male- Primary Hypogonadism in male documented in this [facility]* Diagnosis Hypogonadism in male documented in this encounter [facility]* Diagnosis Alcoholic cirrhosis of liver without ascites (HCC)- Primary Alcoholic cirrhosis of liver Elevated liver enzymes Other nonspecific abnormal serum enzyme levels documented in this encounter [facility]* Diagnosis Essential hypertension- Primary Unspecified essential hypertension Bleeding from the nose Epistaxis documented in this encounter [facility]* Diagnosis Low testosterone in male- Primary documented in this encounter [facility]* Diagnosis Alcoholic cirrhosis of liver without ascites (HCC)- Primary Alcoholic cirrhosis of liver Abnormal results of liver function studies Nonspecific abnormal results of liver function study Alcoholism (HCC) Other and unspecified alcohol dependence, unspecified drinking behavior History of esophageal varices Personal history of other diseases of digestive system documented in this encounter [facility]* Diagnosis Hypogonadism in male documented [facility] this [facility]* Diagnosis Abnormal results of liver function studies Nonspecific abnormal results of liver function study Alcoholic cirrhosis of liver without ascites (HCC) Alcoholic cirrhosis of liver Alcoholism (HCC) Other and unspecified alcohol dependence, unspecified drinking behavior [facility] Diagnosis 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 documented in this encounter [facility] note* Diagnosis Low testosterone in male- Primary documented in this encounter [facility] note* Diagnosis Blood in stool- Primary Alcoholic cirrhosis of liver without ascites (HCC) Alcoholic cirrhosis of liver Portal hypertension with esophageal varices (HCC) Portal hypertension documented in this encounter [facility] note* Diagnosis Low testosterone in male- Primary documented in this encounter [facility] note* Diagnosis Hepatic cirrhosis, unspecified hepatic cirrhosis type, unspecified whether ascites present (HCC)- Primary documented in this encounter [facility] note* Diagnosis Moderate alcohol use disorder, in early remission (HCC)- Primary Hospital discharge follow-up Other follow-up examination Hypogonadism in male Chronic neck pain Cervicalgia documented in this encounter [facility] note* Diagnosis Alcohol use disorder, severe, dependence (HCC) [F10.20]- Primary documented in this encounter [facility] note* Diagnosis Dehydration- Primary Medication reaction, initial encounter documented in this encounter [facility] for referral (narrative)* Diagnostic Procedure Only (Routine) - Authorized Specialty Diagnoses / Procedures Referred By Qian moctezuma Referred To Contact US IMAGING Diagnoses Alcoholic cirrhosis of liver without ascites (HCC) Procedures US ABD RT UPPER QUADRANT US ABDOMINAL REAL TIME W/IMAGE LIMITED Leonel Lizarraga PA-C [address] [place] [address] Us Imaging Referral ID Status Reason Start Date Expiration Date Visits Requested Visits Authorized [id number] Authorized Auto-Generat ed Referral 02/26/2022 12/27/2022 1 1 [facility] for referral (narrative)* Diagnostic Procedure Only (Routine) - Closed Specialty Diagnoses / Procedures Referred By Qian t Referred To Contact US IMAGING Diagnoses Alcoholic cirrhosis of liver without ascites (HCC) Procedures US ABD RT UPPER QUADRANT US ABDOMINAL REAL TIME W/IMAGE LIMITED Leonel Lizarraga PA-C [address] [place] [id number] Us Imaging Referral ID Status Reason Start Date Expiration Date V isits Requested Visits Authorized [id number] Closed Auto-Generate d Referral 02/26/2022 12/27/2022 1 1 [facility] for referral (narrative)* Diagnostic Procedure Only (Routine) - Pending Review Specialty Diagnoses / Procedures Referred By Contac t Referred To Contact US IMAGING Diagnoses Alcoholic cirrhosis of liver without ascites (HCC) Portal hypertension with esophageal varices (HCC) Procedures US ABD RT UPPER QUADRANT US ABDOMINAL REAL TIME W/IMAGE LIMITED Leonel Lizarraga PA-C [address] [place] [address] Us Imaging Referral ID Status Reason Start Date Expiration Date Visits Requested Visits Authorized [id number] Pending Review Auto-Generat ed Referral 08/27/2022 06/06/2023 1 1 [facility] for referral (narrative)* Outpatient Procedure (Routine) - Pending Review Specialty Diagnoses / Procedures Referred By Contac t Referred To Contact [facility] Diagnoses Hepatic cirrhosis, unspecified hepatic cirrhosis type, unspecified whether ascites present (HCC) Procedures EGD DIAGNOSTIC ESOPHAGOGASTRODUODENOSC OPY [place] [address] [place] [address] [facility] [place] [address] [place] [address] Referral ID Status Reason Start Date Expiration Date Visits Requested Visits Authorized [id number] Pending Review Auto-Generat ed Referral 05/04/2023 04/04/2024 1 1 [facility] for referral (narrative)* - Pending Review Specialty Diagnoses / Procedures Referred By Contac t Referred To Contact Diagnoses Chronic neck pain Procedures CONSULT TO PHYSICAL THERAPY Nilsa Calixto DO [address] [place] [address] Referral ID Status Reason Start Date Expiration Date V isits Requested Visits Authorized [id number] Pending Review 04/16/2023 07/15/2023 1 1 [facility] Diagnostic Procedure Only (Routine) - Closed Specialty Diagnoses / Procedures Referred By Contac t Referred To Contact US IMAGING Diagnoses Alcoholic cirrhosis of liver without ascites (HCC) Procedures US ABD RT UPPER QUADRANT US ABDOMINAL REAL TIME W/IMAGE LIMITED Leonel Lizarraga PA-C [address] [place] [address] Us Imaging Referral ID Status Reason Start Date Expiration Date V isits Requested Visits Authorized [id number] Closed Auto-Generate d Referral 02/26/2022 12/27/2022 1 1 [facility] Summary Purpose Family History No Family History Records FoundNo Family History Records FoundNo Family History Records FoundNo Family History Records FoundNo Family History Records FoundNo Family History Records FoundNo Family History Records FoundNo Family History Records FoundNo Family History Records Found Advance Directives No Advanced Directives Records FoundDocuments on File Type Date Recorded Patient Hat Mender Expl anation Advance Directive(s) 02/09/2021 9:04 AM Advance Directive(s) 10/11/2020 9:51 AM Advance Directive(s) 08/29/2020 5:21 AM Advance Directive(s) 08/14/2020 3:15 PM Advance Directive(s) 12/31/2019 9:42 AM Advance Directive(s) 12/30/2019 7:50 PM Advance Directive(s) 04/20/2019 5:04 PM Advance Directive(s) 05/25/2017 4:46 PM Advance Directive(s) 02/21/2016 6:59 PM Documents on File Type Date Recorded Patient Hat Mender Expl anation Advance Directive(s) 02/09/2021 9:04 AM Advance Directive(s) 10/11/2020 9:51 AM Advance Directive(s) 08/29/2020 5:21 AM Advance Directive(s) 08/14/2020 3:15 PM Advance Directive(s) 12/31/2019 9:42 AM Advance Directive(s) 12/30/2019 7:50 PM Advance Directive(s) 04/20/2019 5:04 PM Advance Directive(s) 05/25/2017 4:46 PM Advance Directive(s) 02/21/2016 6:59 PM Latest Code Status on File Code Status Date Activated Date Inactivated Comments Full Code 03/30/2023 6:33 AM 04/04/2023 8:27 PM Question Answer Comments Full Code Order Discussed With: Patient Latest Code Status on File Code Status Date Activated Date Inactivated Comments Full Code 03/30/2023 6:33 AM 04/04/2023 8:27 PM Question Answer Comments Full Code Order Discussed With: Patient Latest Code Status on File Code Status Date Activated Date Inactivated Comments Full Code 04/10/2023 4:06 AM 04/11/2023 9:24 PM Question Answer Comments Full Code Order Discussed With: Patient Code Status History Code Status Date Activated Date Inactivated Comments Full Code 03/30/2023 6:33 AM 04/04/2023 8:27 PM Question Answer Comments Full Code Order Discussed With: Patient Latest Code Status on File Code Status Date Activated Date Inactivated Comments Full Code 04/10/2023 4:06 AM 04/11/2023 9:24 PM Question Answer Comments Full Code Order Discussed With: Patient Code Status History Code Status Date Activated Date Inactivated Comments Full Code 03/30/2023 6:33 AM 04/04/2023 8:27 PM Question Answer Comments Full Code Order Discussed With: Patient Latest Code Status on File Code Status Date Activated Date Inactivated Comments Full Code 05/02/2023 10:38 PM Question Answer Comments Full Code Order Discussed With: Patient Code Status History Code Status Date Activated Date Inactivated Comments Full Code 04/10/2023 4:06 AM 04/11/2023 9:24 PM Question Answer Comments Full Code Order Discussed With: Patient Full Code 03/30/2023 6:33 AM 04/04/2023 8:27 PM Question Answer Comments Full Code Order Discussed With: Patient Hospital Course Note Send Summary: Note Recipient s: Kenia Morales MD Discharge: Summary: Admission Date: .04-Jan-2019 19:16:00 Discharge Date: 06-Jan-2019 Attending Physician at Discharge: Kenia Morales Admission Reason: GI bleed Final Discharge Diagnoses: GI bleed Procedures: EGD Condition at Discharge: Satisfactory Disposition at Discharge: .Home Vital Signs: T [id number] [id number]% Date/Time/ 5:146/4 5:146/4 5:146/4 5:146/4 5:14 Range(36.4C - 37C ) (56 - 76 ) (16 - 20 ) (113 - 152 )/ (51 - 74 ) (98% - 100% ) Highest temp of 37 C was recorded at 01/05 16:00 Physical Exam: General appearance: Well developed, not in pain or distress, in no respiratory distress HEENT: Atraumatic/normocephalic, EOMI, HERMES, pharynx clear, moist mucosa, redness of the uvula appreciated, Neck: Supple, no jugular venous distension, lymphadenopathy, thyromegaly or carotid bruits Chest: Equal normal breath sounds, no wheezing, no crackles and no tenderness over ribs Cardiovascular: Normal S1, S2, regular rate and rhyt (more content not included)... Reason for Referral Specialty Diagnoses / Procedures Referred By Qian moctezuma Referred To Contact [facility] IMAG[facility] Diagnoses Spinal stenosis of cervical region Neck pain Chronic tension-type headache, intractable CS (cervical spondylosis) Procedures MRI CERVICAL SPINE WO IVCON MRI SPINAL CANAL CERVICAL W/O CONTRAST MATRL Juliocesar Reyes PA-C [address] [place] [id number] Mr Imaging Referral ID Status Reason Start Date Expiration Date Visits Requested Visits Authorized [id number] Authorized Auto-Generat ed Referral 03/14/2022 04/28/2022 1 1 Specialty Diagnoses / Procedures Referred By Qian moctezuma Referred To Contact Ent - Otolaryngology Diagnoses Bleeding from the nose Procedures CONSULT TO ENT OFFICE/OUTPATIENT [facility] 60-[place] [address] [place] [address] Referral ID Status Reason Start Date Expiration Date Visits Requested Visits Authorized [id number] Authorized PCP Requested Referral 10/08/2022 10/08/2023 1 1 Specialty Diagnoses / Procedures Referred By Qian moctezuma Referred To Contact Diagnoses Abnormal results of liver function studies Alcoholic cirrhosis of liver without ascites (HCC) Alcoholism (HCC) Procedures CONSULT TO PSYCHIATRY OFFICE/OUTPATIENT [facility] 60-74 MINUTES Leonel Lizarraga PA-C [address] [place] [address] Referral ID Status Reason Start Date Expiration Date Visits Requested Visits Authorized [id number] Pending Review PCP Requested Referral 10/13/2022 10/13/2023 1 1 Specialty Diagnoses / Procedures Referred By Qian moctezuma Referred To Contact CT IMAGING Diagnoses Abnormal results of liver function studies Alcoholic cirrhosis of liver without ascites (HCC) Procedures CT LIVER WO/W IVCON CT ABDOMEN W & W/O CONTRAST Leonel Lizarraga PA-C [address] [place] [address] Ct Imaging Referral ID Status Reason Start Date Expiration Date Visits Requested Visits Authorized [id number] Pending Review Auto-Generat ed Referral 03/24/2023 11/12/2023 1 1 Medications Administered Section Active Administered Medications - up to 3 most recent administrations Medication Order MAR Action Action Date Dose Rate Site testosterone cypionate 200 mg injection (DEPO-TESTOSTERONE) 200 mg, INTRAMUSCULAR, EVERY 1 MONTH, First dose on Sat06/06/22 at 1130, Until Discontinued, Hazardous Potential Reproductive Risk Drug: Use appropriate PPE. Given 06/08/2022 3:35 PM EDT 200 mg Buttocks, Right Active Administered Medications - up to 3 most recent administrations Medication Order MAR Action Action Date Dose Rate Site testosterone cypionate 200 mg injection (DEPO-TESTOSTERONE) 200 mg, INTRAMUSCULAR, EVERY 2 WEEKS, First dose (after last modification) on Sat06/25/22 at 2000, Until Discontinued, Hazardous Potential Reproductive Risk Drug: Use appropriate PPE. Given 08/10/2022 10:05 AM EST 200 mg Buttocks, Left Given 07/12/2022 2:12 PM EST 200 mg Bu ttocks, Right Active Administered Medications - up to 3 most recent administrations Medication Order MAR Action Action Date Dose Rate Site testosterone cypionate 200 mg injection (DEPO-TESTOSTERONE) 200 mg, INTRAMUSCULAR, EVERY 2 WEEKS, First dose (after last modification) on Sat06/25/22 at 2000, Until Discontinued, Hazardous Potential Reproductive Risk Drug: Use appropriate PPE. Given 08/23/2022 8:41 AM EST 200 mg Buttocks, Right Given 08/10/2022 10:05 AM EST 200 mg B uttocks, Left Given 07/12/2022 2:12 PM EST 200 mg Bu ttocks, Right Active Administered Medications - up to 3 most recent administrations Medication Order MAR Action Action Date Dose Rate Site testosterone cypionate 200 mg injection (DEPO-TESTOSTERONE) 200 mg, INTRAMUSCULAR, EVERY 2 WEEKS, First dose (after last modification) on Sat06/25/22 at 1999, Until Discontinued, Hazardous Potential Reproductive Risk Drug: Use appropriate PPE. Given 09/06/2022 8:36 AM EST 200 mg Buttocks, Left Given 08/23/2022 8:41 AM EST 200 mg Bu ttocks, Right Given 08/10/2022 10:05 AM EST 200 mg B uttocks, Left Active Administered Medications - up to 3 most recent administrations Medication Order MAR Action Action Date Dose Rate Site testosterone cypionate 200 mg injection (DEPO-TESTOSTERONE) 200 mg, INTRAMUSCULAR, EVERY 2 WEEKS, First dose (after last modification) on Sat06/25/22 at 1999, Until Discontinued, Hazardous Potential Reproductive Risk Drug: Use appropriate PPE. Given 09/21/2022 8:50 AM EST 200 mg Buttocks, Right Given 09/06/2022 8:36 AM EST 200 mg Bu ttocks, Left Given 08/23/2022 8:41 AM EST 200 mg Bu ttocks, Right Active Administered Medications - up to 3 most recent administrations Medication Order MAR Action Action Date Dose Rate Site testosterone cypionate 200 mg injection (DEPO-TESTOSTERONE) 200 mg, INTRAMUSCULAR, EVERY 2 WEEKS, First dose (after last modification) on Sat06/25/22 at 1999, Until Discontinued, Hazardous Potential Reproductive Risk Drug: Use appropriate PPE. Given 10/10/2022 8:39 AM EST 200 mg Buttocks, Left Given 09/21/2022 8:50 AM EST 200 mg Bu ttocks, Right Given 09/06/2022 8:36 AM EST 200 mg Bu ttocks, Left Active Administered Medications - up to 3 most recent administrations Medication Order MAR Action Action Date Dose Rate Site testosterone cypionate 200 mg injection (DEPO-TESTOSTERONE) 200 mg, INTRAMUSCULAR, EVERY 2 WEEKS, First dose (after last modification) on Sat06/25/22 at 1999, Until Discontinued, Hazardous Potential Reproductive Risk Drug: Use appropriate PPE. Given 10/18/2022 8:44 AM EDT 200 mg Buttocks, Right Given 10/10/2022 8:39 AM EST 200 mg Bu ttocks, Left Given 09/21/2022 8:50 AM EST 200 mg Bu ttocks, Right Active Administered Medications - up to 3 most recent administrations Medication Order MAR Action Action Date Dose Rate Site testosterone cypionate 100 mg injection (DEPO-TESTOSTERONE) 100 mg, INTRAMUSCULAR, EVERY 2 WEEKS, First dose (after last modification) on Sat11/26/22 at 1999, Until Discontinued, Hazardous Potential Reproductive Risk Drug: Use appropriate PPE. Given 11/22/2022 8:37 AM EDT 100 mg Buttocks, Right Active Administered Medications - up to 3 most recent administrations Medication Order MAR Action Action Date Dose Rate Site testosterone cypionate 100 mg injection (DEPO-TESTOSTERONE) 100 mg, INTRAMUSCULAR, EVERY 2 WEEKS, First dose (after last modification) on Sat11/26/22 at 2000, Until Discontinued, Hazardous Potential Reproductive Risk Drug: Use appropriate PPE. Given 12/13/2022 9:33 AM EDT 100 mg Buttocks, Left Given 11/22/2022 8:37 AM EDT 100 mg Bu ttocks, Right Active Administered Medications - up to 3 most recent administrations Medication Order MAR Action Action Date Dose Rate Site testosterone cypionate 200 mg injection (DEPO-TESTOSTERONE) 200 mg, INTRAMUSCULAR, EVERY 3 WEEKS, First dose (after last modification) on Sat01/28/23 at 2000, Until Discontinued, Hazardous Potential Reproductive Risk Drug: Use appropriate PPE. Given 01/24/2023 8:41 AM EDT 200 mg Buttocks, Left Active Administered Medications - up to 3 most recent administrations Medication Order MAR Action Action Date Dose Rate Site testosterone cypionate 200 mg injection (DEPO-TESTOSTERONE) 200 mg, INTRAMUSCULAR, EVERY 3 WEEKS, First dose (after last modification) on Sat01/28/23 at 1999, Until Discontinued, Hazardous Potential Reproductive Risk Drug: Use appropriate PPE. Given 03/07/2023 8:46 AM EDT 200 mg Buttocks, Left Given 01/24/2023 8:41 AM EDT 200 mg Bu ttocks, Left Active Administered Medications - up to 3 most recent administrations Medication Order MAR Action Action Date Dose Rate Site testosterone cypionate 200 mg injection (DEPO-TESTOSTERONE) 200 mg, INTRAMUSCULAR, EVERY 2 WEEKS, 24 doses, First dose (after last modification) on Sat04/16/23 at 0930, Last dose on Sat03/03/24 at 0930, Hazardous Potential Reproductive Risk Drug: Use appropriate PPE. Given 04/16/2023 9:32 AM EDT 200 mg Buttocks, Left Health Concerns Infection Onset Date Last Indicated Resolved Time COVID-19 Rule-Out 05/03/2023 05/03/2023 05/03/2023 5:39 PM EDT Additional Source Comments (unrecognized sect ion and content) No Status Records FoundNo Status Records FoundNo Status Records FoundNo Status Records FoundNo Status Records FoundNo Status Records FoundNo Status Records FoundNo Status Records FoundNo Status Records Found INFORMATION SOURCE (unrecogn ized section and content) DATE CREATED AUTHOR 01/10/2019 [facility] DATE CREATED AUTHOR AUTHOR'S ORGANIZ ATION 08/01/2019 [facility] DATE CREATED AUTHOR AUTHOR'S ORGANIZ ATION 05/19/2023 [facility] DATE CREATED AUTHOR AUTHOR'S ORGANIZ ATION 05/19/2023 [facility] DATE CREATED AUTHOR AUTHOR'S ORGANIZ ATION 08/04/2023 [facility] DATE CREATED AUTHOR AUTHOR'S ORGANIZ ATION 03/08/2024 [facility] DATE CREATED AUTHOR AUTHOR'S ORGANIZ ATION 03/08/2024 [facility] DATE CREATED AUTHOR AUTHOR'S ORGANIZ ATION 03/09/2024 [facility] Source Comments (unrecognize d section and content) In the event this informatio n is protected by the Federal Confidentiality of Alcohol and Drug Abuse Patient Records regulations: The Federal rules restrict any use of the information to criminally investigate or prosecute any alcohol or drug abuse patient.[facility] the event this information is protected by the Federal Confidentiality of Alcohol and Drug Abuse Patient Records regulations: The Federal rules restrict any use of the information to criminally investigate or prosecute any alcohol or drug abuse patient.[facility] the event this information is protected by the Federal Confidentiality of Alcohol and Drug Abuse Patient Records regulations: The Federal rules restrict any use of the information to criminally investigate or prosecute any alcohol or drug abuse patient.[facility] the event this information is protected by the Federal Confidentiality of Alcohol and Drug Abuse Patient Records regulations: The Federal rules restrict any use of the information to criminally investigate or prosecute any alcohol or drug abuse patient.[facility] the event this information is protected by the Federal Confidentiality of Alcohol and Drug Abuse Patient Records regulations: The Federal rules restrict any use of the information to criminally investigate or prosecute any alcohol or drug abuse patient.[facility] AndersonIn the event this information is protected by the Federal Confidentiality of Alcohol and Drug Abuse Patient Records regulations: The Federal rules restrict any use of the information to criminally investigate or prosecute any alcohol or drug abuse patient.[facility] AndersonIn the event this information is protected by the Federal Confidentiality of Alcohol and Drug Abuse Patient Records regulations: The Federal rules restrict any use of the information to criminally investigate or prosecute any alcohol or drug abuse patient.[facility] AndersonIn the event this information is protected by the Federal Confidentiality of Alcohol and Drug Abuse Patient Records regulations: The Federal rules restrict any use of the information to criminally investigate or prosecute any alcohol or drug abuse patient.[facility] AndersonIn the event this information is protected by the Federal Confidentiality of Alcohol and Drug Abuse Patient Records regulations: The Federal rules restrict any use of the information to criminally investigate or prosecute any alcohol or drug abuse patient.[facility] AndersonIn the event this information is protected by the Federal Confidentiality of Alcohol and Drug Abuse Patient Records regulations: The Federal rules restrict any use of the information to criminally investigate or prosecute any alcohol or drug abuse patient.[facility] AndersonIn the event this information is protected by the Federal Confidentiality of Alcohol and Drug Abuse Patient Records regulations: The Federal rules restrict any use of the information to criminally investigate or prosecute any alcohol or drug abuse patient.[facility] AndersonIn the event this information is protected by the Federal Confidentiality of Alcohol and Drug Abuse Patient Records regulations: The Federal rules restrict any use of the information to criminally investigate or prosecute any alcohol or drug abuse patient.[facility] AndersonIn the event this information is protected by the Federal Confidentiality of Alcohol and Drug Abuse Patient Records regulations: The Federal rules restrict any use of the information to criminally investigate or prosecute any alcohol or drug abuse patient.[facility] AndersonIn the event this information is protected by the Federal Confidentiality of Alcohol and Drug Abuse Patient Records regulations: The Federal rules restrict any use of the information to criminally investigate or prosecute any alcohol or drug abuse patient.[facility] AndersonIn the event this information is protected by the Federal Confidentiality of Alcohol and Drug Abuse Patient Records regulations: The Federal rules restrict any use of the information to criminally investigate or prosecute any alcohol or drug abuse patient.[facility] AndersonIn the event this information is protected by the Federal Confidentiality of Alcohol and Drug Abuse Patient Records regulations: The Federal rules restrict any use of the information to criminally investigate or prosecute any alcohol or drug abuse patient.[facility] AndersonIn the event this information is protected by the Federal Confidentiality of Alcohol and Drug Abuse Patient Records regulations: The Federal rules restrict any use of the information to criminally investigate or prosecute any alcohol or drug abuse patient.[facility] AndersonIn the event this information is protected by the Federal Confidentiality of Alcohol and Drug Abuse Patient Records regulations: The Federal rules restrict any use of the information to criminally investigate or prosecute any alcohol or drug abuse patient.[facility] AndersonIn the event this information is protected by the Federal Confidentiality of Alcohol and Drug Abuse Patient Records regulations: The Federal rules restrict any use of the information to criminally investigate or prosecute any alcohol or drug abuse patient.[facility] AndersonIn the event this information is protected by the Federal Confidentiality of Alcohol and Drug Abuse Patient Records regulations: The Federal rules restrict any use of the information to criminally investigate or prosecute any alcohol or drug abuse patient.[facility] AndersonIn the event this information is protected by the Federal Confidentiality of Alcohol and Drug Abuse Patient Records regulations: The Federal rules restrict any use of the information to criminally investigate or prosecute any alcohol or drug abuse patient.[facility] AndersonIn the event this information is protected by the Federal Confidentiality of Alcohol and Drug Abuse Patient Records regulations: The Federal rules restrict any use of the information to criminally investigate or prosecute any alcohol or drug abuse patient.[facility] AndersonIn the event this information is protected by the Federal Confidentiality of Alcohol and Drug Abuse Patient Records regulations: The Federal rules restrict any use of the information to criminally investigate or prosecute any alcohol or drug abuse patient.[facility] AndersonIn the event this information is protected by the Federal Confidentiality of Alcohol and Drug Abuse Patient Records regulations: The Federal rules restrict any use of the information to criminally investigate or prosecute any alcohol or drug abuse patient.[facility] AndersonIn the event this information is protected by the Federal Confidentiality of Alcohol and Drug Abuse Patient Records regulations: The Federal rules restrict any use of the information to criminally investigate or prosecute any alcohol or drug abuse patient.[facility] AndersonIn the event this information is protected by the Federal Confidentiality of Alcohol and Drug Abuse Patient Records regulations: The Federal rules restrict any use of the information to criminally investigate or prosecute any alcohol or drug abuse patient.[facility] AndersonIn the event this information is protected by the Federal Confidentiality of Alcohol and Drug Abuse Patient Records regulations: The Federal rules restrict any use of the information to criminally investigate or prosecute any alcohol or drug abuse patient.[facility] AndersonIn the event this information is protected by the Federal Confidentiality of Alcohol and Drug Abuse Patient Records regulations: The Federal rules restrict any use of the information to criminally investigate or prosecute any alcohol or drug abuse patient.[facility] AndersonIn the event this information is protected by the Federal Confidentiality of Alcohol and Drug Abuse Patient Records regulations: The Federal rules restrict any use of the information to criminally investigate or prosecute any alcohol or drug abuse patient.[facility] AndersonIn the event this information is protected by the Federal Confidentiality of Alcohol and Drug Abuse Patient Records regulations: The Federal rules restrict any use of the information to criminally investigate or prosecute any alcohol or drug abuse patient.[facility] AndersonIn the event this information is protected by the Federal Confidentiality of Alcohol and Drug Abuse Patient Records regulations: The Federal rules restrict any use of the information to criminally investigate or prosecute any alcohol or drug abuse patient.[facility] AndersonIn the event this information is protected by the Federal Confidentiality of Alcohol and Drug Abuse Patient Records regulations: The Federal rules restrict any use of the information to criminally investigate or prosecute any alcohol or drug abuse patient.[facility] AndersonIn the event this information is protected by the Federal Confidentiality of Alcohol and Drug Abuse Patient Records regulations: The Federal rules restrict any use of the information to criminally investigate or prosecute any alcohol or drug abuse patient.[facility] AndersonIn the event this information is protected by the Federal Confidentiality of Alcohol and Drug Abuse Patient Records regulations: The Federal rules restrict any use of the information to criminally investigate or prosecute any alcohol or drug abuse patient.[facility] AndersonIn the event this information is protected by the Federal Confidentiality of Alcohol and Drug Abuse Patient Records regulations: The Federal rules restrict any use of the information to criminally investigate or prosecute any alcohol or drug abuse patient.[facility] AndersonIn the event this information is protected by the Federal Confidentiality of Alcohol and Drug Abuse Patient Records regulations: The Federal rules restrict any use of the information to criminally investigate or prosecute any alcohol or drug abuse patient.[facility] AndersonIn the event this information is protected by the Federal Confidentiality of Alcohol and Drug Abuse Patient Records regulations: The Federal rules restrict any use of the information to criminally investigate or prosecute any alcohol or drug abuse patient.[facility] AndersonIn the event this information is protected by the Federal Confidentiality of Alcohol and Drug Abuse Patient Records regulations: The Federal rules restrict any use of the information to criminally investigate or prosecute any alcohol or drug abuse patient.[facility] AndersonIn the event this information is protected by the Federal Confidentiality of Alcohol and Drug Abuse Patient Records regulations: The Federal rules restrict any use of the information to criminally investigate or prosecute any alcohol or drug abuse patient.[facility] AndersonIn the event this information is protected by the Federal Confidentiality of Alcohol and Drug Abuse Patient Records regulations: The Federal rules restrict any use of the information to criminally investigate or prosecute any alcohol or drug abuse patient.[facility] AndersonIn the event this information is protected by the Federal Confidentiality of Alcohol and Drug Abuse Patient Records regulations: The Federal rules restrict any use of the information to criminally investigate or prosecute any alcohol or drug abuse patient.[facility] AndersonIn the event this information is protected by the Federal Confidentiality of Alcohol and Drug Abuse Patient Records regulations: The Federal rules restrict any use of the information to criminally investigate or prosecute any alcohol or drug abuse patient.[facility] AndersonIn the event this information is protected by the Federal Confidentiality of Alcohol and Drug Abuse Patient Records regulations: The Federal rules restrict any use of the information to criminally investigate or prosecute any alcohol or drug abuse patient.[facility] AndersonIn the event this information is protected by the Federal Confidentiality of Alcohol and Drug Abuse Patient Records regulations: The Federal rules restrict any use of the information to criminally investigate or prosecute any alcohol or drug abuse patient.[facility] AndersonIn the event this information is protected by the Federal Confidentiality of Alcohol and Drug Abuse Patient Records regulations: The Federal rules restrict any use of the information to criminally investigate or prosecute any alcohol or drug abuse patient.[facility] AndersonIn the event this information is protected by the Federal Confidentiality of Alcohol and Drug Abuse Patient Records regulations: The Federal rules restrict any use of the information to criminally investigate or prosecute any alcohol or drug abuse patient.[facility] AndersonIn the event this information is protected by the Federal Confidentiality of Alcohol and Drug Abuse Patient Records regulations: The Federal rules restrict any use of the information to criminally investigate or prosecute any alcohol or drug abuse patient.[facility] AndersonIn the event this information is protected by the Federal Confidentiality of Alcohol and Drug Abuse Patient Records regulations: The Federal rules restrict any use of the information to criminally investigate or prosecute any alcohol or drug abuse patient.[facility] AndersonIn the event this information is protected by the Federal Confidentiality of Alcohol and Drug Abuse Patient Records regulations: The Federal rules restrict any use of the information to criminally investigate or prosecute any alcohol or drug abuse patient.[facility] AndersonIn the event this information is protected by the Federal Confidentiality of Alcohol and Drug Abuse Patient Records regulations: The Federal rules restrict any use of the information to criminally investigate or prosecute any alcohol or drug abuse patient.[facility] AndersonIn the event this information is protected by the Federal Confidentiality of Alcohol and Drug Abuse Patient Records regulations: The Federal rules restrict any use of the information to criminally investigate or prosecute any alcohol or drug abuse patient.[facility] AndersonIn the event this information is protected by the Federal Confidentiality of Alcohol and Drug Abuse Patient Records regulations: The Federal rules restrict any use of the information to criminally investigate or prosecute any alcohol or drug abuse patient.[facility] AndersonIn the event this information is protected by the Federal Confidentiality of Alcohol and Drug Abuse Patient Records regulations: The Federal rules restrict any use of the information to criminally investigate or prosecute any alcohol or drug abuse patient.[facility] AndersonIn the event this information is protected by the Federal Confidentiality of Alcohol and Drug Abuse Patient Records regulations: The Federal rules restrict any use of the information to criminally investigate or prosecute any alcohol or drug abuse patient.[facility] AndersonIn the event this information is protected by the Federal Confidentiality of Alcohol and Drug Abuse Patient Records regulations: The Federal rules restrict any use of the information to criminally investigate or prosecute any alcohol or drug abuse patient.[facility] AndersonIn the event this information is protected by the Federal Confidentiality of Alcohol and Drug Abuse Patient Records regulations: The Federal rules restrict any use of the information to criminally investigate or prosecute any alcohol or drug abuse patient.[facility] Reason for Visit (unrecogniz ed section and content) Reason Comments Established Patient Follow-Up Alcoholic cirrhosis of liver without ascites Reason Comments Radiology US Reason Comments Follow Up Reason Comments Recheck Reason Comments Anesthesia Consult Reason Comments Appointment Cancelled Reason Comments bumps on left forearm, left thumb, above eye, left side of Reason Comments Injections Reason Comments Orders Reason Onset Date Comments Refill Request 06/07/2022 Reason Comments Imm/Inj Reason Comments Follow Up Reason Comments Covid Positive Reason Comments Appointment Reason Onset Date Comments Refill Request 08/19/2022 Reason Comments Recheck Reason Comments Follow Up Specialty Diagnoses / Procedures Referred By Contac t Referred To Contact Diagnoses Abnormal results of liver function studies Alcoholic cirrhosis of liver without ascites (HCC) Alcoholism (HCC) Procedures CONSULT TO PSYCHIATRY OFFICE/OUTPATIENT [facility] MDM 60-74 MINUTES Leonel Lizarraga PA-C [address] [place] [address] Referral ID Status Reason Start Date Expiration Date Visits Requested Visits Authorized [id number] Pending Review PCP Requested Referral 10/13/2022 10/13/2023 1 1 Reason Onset Date Comments Refill Request 12/11/2022 Reason Onset Date Comments Transition Of Care 04/05/2023 [facility] 04/04/23 Initial Outreach Reason Comments Follow Up Needs EGD and colono scopy with Dr. Mabry Reason Onset Date Comments Transition Of Care 04/12/2023 TCM Hospital Discharge 04/11 Reason Comments Hospital Follow Up Reason Onset Date Comments Transition Of Care 05/04/2023 TCM Follow Up Reason Onset Date Comments Detoxification 05/03/2023 Reason Comments Hypotension BP 63/39 upon arriva l Care Teams (unrecognized sec tion and content) Meat Inspector Relationship Specialty [place] [address] [place] [address] PCP - General Internal Medicine 05/26/21 Meat Inspector Relationship Specialty Start Date End Date Terese Jack MD [address] [place] [address] PCP - General Internal Medicine 05/26/21 Meat Inspector Relationship Specialty Start Date End Date Terese Jack MD [address] [place] [address] 06045 PCP - General Internal Medicine 05/26/21 Meat Inspector Relationship Specialty Start Date End Date Terese Jack MD [address] [place] [address] 31624 PCP - General Internal Medicine 05/26/21 Meat Inspector Relationship Specialty Start Date End Date Terese Jack MD [address] [place] [address] 42789 PCP - General Internal Medicine 05/26/21 Meat Inspector Relationship Specialty Start Date End Date Terese Jack MD [address] [place] [address] 83632 PCP - General Internal Medicine 05/26/21 Meat Inspector Relationship Specialty Start Date End Date Terese Jack MD [address] [place] [address] 31487 PCP - General Internal Medicine 05/26/21 Meat Inspector Relationship Specialty Start Date End Date Terese Jack MD [address] [place] [address] 79864 PCP - General Internal Medicine 05/26/21 Meat Inspector Relationship Specialty Start Date End Date Terese Jack MD [address] [place] [address] 35220 PCP - General Internal Medicine 05/26/21 Meat Inspector Relationship Specialty Start Date End Date Terese Jack MD [address] [place] [address] 16355 PCP - General Internal Medicine 05/26/21 Meat Inspector Relationship Specialty Start Date End Date Terese Jack MD [address] [place] [address] 82725 PCP - General Internal Medicine 05/26/21 Meat Inspector Relationship Specialty Start Date End Date Terese Jack MD [address] [place] [address] 88037 PCP - General Internal Medicine 05/26/21 Meat Inspector Relationship Specialty Start Date End Date Terese Jack MD [address] [place] [address] 80838 PCP - General Internal Medicine 05/26/21 Meat Inspector Relationship Specialty Start Date End Date Terese Jack MD [address] [place] [address] 75499 PCP - General Internal Medicine 05/26/21 Meat Inspector Relationship Specialty Start Date End Date Terese Jack MD [address] [place] [address] 66985 PCP - General Internal Medicine 05/26/21 Meat Inspector Relationship Specialty Start Date End Date Terese Jack MD [address] [place] [address] 21092 PCP - General Internal Medicine 05/26/21 Meat Inspector Relationship Specialty Start Date End Date Terese Jack MD [address] [place] [address] 66309 PCP - General Internal Medicine 05/26/21 Meat Inspector Relationship Specialty Start Date End Date Tersee Jack MD [address] [place] [address] 87522 PCP - General Internal Medicine 05/26/21 Meat Inspector Relationship Specialty Start Date End Date Terese Jack MD [address] [place] [address] 58065 PCP - General Internal Medicine 05/26/21 Meat Inspector Relationship Specialty Start Date End Date Terese Jack MD [address] [place] [address] 41938 PCP - General Internal Medicine 05/26/21 Meat Inspector Relationship Specialty Start Date End Date Terese Jack MD [address] [place] [address] 63058 PCP - General Internal Medicine 05/26/21 Meat Inspector Relationship Specialty Start Date End Date Terese Jack MD [address] [place] [address] 81822 PCP - General Internal Medicine 05/26/21 Meat Inspector Relationship Specialty Start Date End Date Terese Jack MD [address] [place] [address] 55548 PCP - General Internal Medicine 05/26/21 Meat Inspector Relationship Specialty Start Date End Date Terese Jack MD [address] [place] [address] 25962 PCP - General Internal Medicine 05/26/21 Meat Inspector Relationship Specialty Start Date End Date Terese Jack MD [address] [place] [address] 76226 PCP - General Internal Medicine 05/26/21 Meat Inspector Relationship Specialty Start Date End Date Terese Jack MD [address] [place] [address] 71287 PCP - General Internal Medicine 05/26/21 Meat Inspector Relationship Specialty Start Date End Date Terese Jack MD [address] [place] [address] 90400 PCP - General Internal Medicine 05/26/21 Meat Inspector Relationship Specialty Start Date End Date Terese Jack MD [address] [place] [address] 04967 PCP - General Internal Medicine 05/26/21 Meat Inspector Relationship Specialty Start Date End Date Terese Jack MD [address] [place] [address] 22382 PCP - General Internal Medicine 05/26/21 Kelly Gonzalez RN [address] [address] Primary Care Dietary Worker Family Medicine 04/05/23 05/02/23 Meat Inspector Relationship Specialty Start Date End Date Terese Jack MD [address] [place] [address] 64678 PCP - General Internal Medicine 05/26/21 Kelly Gonzalez RN [address] [address] Primary Care Dietary Worker [facility] 04/05/23 05/02/23 Meat Inspector Relationship Specialty Start Date End Date Terese Jack MD [address] [place] [address] 56524 PCP - General Internal Medicine 05/26/21 Kelly Gonzalez RN [address] [address] Primary Care Dietary Worker Family Medicine 04/05/23 05/02/23 Meat Inspector Relationship Specialty Start Date End Date Terese Jack MD [address] [place] [address] 33792 PCP - General Internal Medicine 05/26/21 Janee Moncada RN Primary Care Dietary Worker 04/12/23 05/11/23 Meat Inspector Relationship Specialty [place] [address] [place] [address] PCP - General Internal Medicine 05/26/21 Janee Moncada RN Primary Care Dietary Worker 04/12/23 05/11/23 Meat Inspector Relationship Specialty [place] [address] [place] [address] PCP - General Internal Medicine 05/26/21 Janee Moncada RN Primary Care Dietary Worker 04/12/23 05/11/23 Meat Inspector Relationship Specialty Start Date [place] Terese [place] [id number] [place] [address] PCP - General Internal Medicine 05/26/21 Janee Moncada RN Primary Care Dietary Worker 04/12/23 05/04/23 Meat Inspector Relationship Specialty [place] [address] [place] [address] PCP - General Internal Medicine 05/26/21 Janee Moncada RN Primary Care Dietary Worker 04/12/23 05/04/23 Scheduled Active and Recently Administ ered Medications (unrecognized section and content) Medication Order 08/02/2023 08/03/2023 08/04/2023 acetaminophen (TYLENOL) tablet 650 mg (COMPLETED) 650 mg, Oral, ONCE, 1 dose, On 08/04/23 at 1030, Maximum dose of acetaminophen is 4000 mg from all sources in 24 hours. 1027 (Given - Provid er: Kayleigh Agudelo RN) ketorolac (TORADOL) injection 15 mg (COMPLETED) 15 mg, IntraVENous, ONCE, 1 dose, On 08/04/23 at 1130, Do not administer for more than 5 days. 1125 (Given - Provid er: Mike Ramírez RN) sodium chloride 0.9 % bolus 1,000 mL (COMPLETED) 1,000 mL, IntraVENous, at 1,000 mL/hr, Administer over 1 Hours, ONCE, On 08/04/23 at 0915, For 1 dose, May administer over 30 minutes if well tolerated. 0921 (New Bag - Prov ider: Evelin Wagner RN)1016 (Stopped - Provider: Mike Ramírez RN) sodium chloride 0.9 % bolus 1,000 mL (COMPLETED) 1,000 mL (13 mL/kg), IntraVENous, at 1,000 mL/hr, Administer over 1 Hours, ONCE, On 08/04/23 at 1015, For 1 dose, May administer over 30 minutes if well tolerated. 1015 (New Bag - Prov ider: Mike Ramírez RN)1120 (Stopped - Provider: Kayleigh Agudelo RN) sodium chloride 0.9 % bolus 500 mL (COMPLETED) 500 mL (6.49 mL/kg), IntraVENous, at 1,000 mL/hr, Administer over 30 Minutes, ONCE, On 08/04/23 at 1130, For 1 dose, May be administered over 15 minutes if well tolerated. 1124 (New Bag - Prov ider: Mike Ramírez RN)1209 (Stopped - Provider: Kayleigh Agudelo RN) FOR RECORDS PERTAINING TO PATIENTS WHO ARE OR HAVE BEEN ENROLLED IN A CHEMICAL DEPENDENCY/SUBSTANCEABUSE PROGRAM, SOME INFORMATION MAY BE OMITTED. This clinical summary was aggregated from multiple sources. Caution should be exercised in using it in the provision of clinical care. This summary normalizes information from multiple sources, and as a consequence, information in this document may materially change the coding, format and clinical context of patient data. In addition, data may be omitted in some cases. CLINICAL DECISIONS SHOULD BE BASED ON THE PRIMARY CLINICAL RECORDS. [employer] provides no warranty or guarantee of the accuracy or completeness of information in this document.
[2024-04-01 21:03] VITALS: BP 124/50; PULSE 62; TEMP 36.8; O2SAT 99; BMI 25.8
--- NOTE | 2024-04-01 22:02 | ED_ITS ---
HPI - Skin/Abscess/Foreign Bdy General Chief complaint: Wound/Laceration Stated complaint: WOUND CHECK Time Seen by Provider: 04/01/24 21:58 Source: patient Mode of arrival: walk-in Limitations: no limitations History of Present Illness HPI narrative: patient is an alcoholic. States he was hospitalized last month at [facility] for 4 days for cellulitis. He is now residing at a recovery unit for alcohol abuse. has been on Keflex for recurrence of cellulitis. States has taken the antibiotic for 4 days and his leg is not improving. No fever, chills or vomiting. Has pain at the ankle Related Data Allergies Allergy/AdvReac Type Severity Reaction Status Date / Time hydromorphone [From Dilaudid] Allergy Rash Verified 04/01/24 21:08 Review of Systems 2 ROS0 Status of ROS 10 or more systems reviewed and unremark able except as noted in history and below [facility] Medical History (Updated 04/01/24 @ 23:15 by Neal Steve MD) Cirrhosis of liver ?K74.60 - Unspecified cirrhosis of liver (ICD-10) Exam Constitutional Vital Signs, click to edit/add: Last Vital Signs Temp 98.3 F 04/01/24 21:03 Pulse 62 04/01/24 21:03 Resp 18 04/01/24 21:03 BP 124/50 04/01/24 21:03 Pulse Ox 99 04/01/24 21:03 O2 Del Method Room Air 04/01/24 21:03 Common normals: no apparent distress, average body habitus, oriented x3, no limitations, healthy appearing, alert and well nourished [facility] Common normals: normocephalic and head/scalp atraumatic Respiratory Common normals: normal respiratory effort, no retractions, no use of accessory muscles and clear to auscultation bilaterally Cardio Common normals: regular rate, regular rhythm, S1 normal heart sound and S2 normal heart sound GI Common normals: Normal to inspection, nondistended, normoactive bowel sounds present and soft to palpation Extremity Other: erythema and warmth and edema of the LLE. Warm mainly about the ankle. Mild tenderness. Extremity image (front): 2 1. erythema and swelling Neuro Common normals: oriented x3, CN's II-XII intact bilaterally, moves all extremities and no focal motor deficits Psych Appearance: grossly normal Course Vital Signs Vital signs: Vital Signs Temperature 98.3 F 04/01/24 21:03 Pulse Rate 62 04/01/24 21:03 Respiratory Rate 18 04/01/24 21:03 Blood Pressure 124/50 04/01/24 21:03 Pulse Oximetry 99 04/01/24 21:03 Oxygen Delivery Method Room Air 04/01/24 21:03 Temperature 98.3 F 04/01/24 21:03 Pulse Rate 62 04/01/24 21:03 Respiratory Rate 18 04/01/24 21:03 Blood Pressure 124/50 04/01/24 21:03 Pulse Oximetry 99 04/01/24 21:03 Oxygen Delivery Method Room Air 04/01/24 21:03 MDM - Skin/Abscess/Foreign Bdy MDM Narrative Medical decision making narrative: patient presents with cellulitis of the left leg that is not improving with keflex. vital signs are normal . inflammatory markers are normal. Given dose of clindamycin IVPB and discharged home with clindamycin prescription to use instead of Keflex Lab Data Labs: Lab Results 04/01/24 Range/Units 22:22 WBC 2.6 L (4.0-11.0) 10^3/uL RBC 3.99 L (4.70-6.10) 10^6/uL Hgb 10.4 L (14.0-18.0) g/dL Hct 32.2 L (42.0-54.0) % MCV 80.7 (80.0-94.0) fL MCH 26.1 (25.9-34.0) pg MCHC 32.3 (29.9-35.2) g/dL RDW 17.9 H (11.0-15.0) % Plt Count 48 L (150-450) 10^3/uL MPV 9.6 (9.5-13.5) fL Seg Neuts % (Manual) 57.0 (43.0-75.0) Lymphocytes % (Manual) 27.0 (20.5-60.0) % Atypical Lymphs % (Man) 1.0 % Monocytes % (Manual) 8.0 (1.7-12.0) % Eosinophils % (Manual) 7.0 (0.9-7.0) % Basophils % (Manual) 0.0 L (0.2-2.0) % Neutrophils # (Manual) 1.48 (1.4-6.5) 10^3/uL Lymphocytes # (Manual) 0.70 L (1.20-3.80) 10^3/uL Abs Atypical Lymphs Man 0.02 Monocytes # (Manual) 0.20 L (0.30-0.80) 10^3/uL Eosinophils # (Manual) 0.18 (0.00-0.70) 10^3/uL Basophils # (Manual) 0.00 (0.00-0.10) 10^3/uL ESR 19 (<=20) mm/hr Sodium 139 (136-145) mmol/L Potassium 4.0 (3.5-5.1) mmol/L Chloride 104 (98-107) mmol/L Carbon Dioxide 28.3 (21.0-32.0) mmol/L Anion Gap 10.7 BUN 8.0 (7.0-18.0) mg/dL Creatinine 1.34 H (0.70-1.30) mg/dL Est GFR ( Amer) >60 (>=60) Est GFR (Non-Af Amer) 55 L (>=60) BUN/Creatinine Ratio 6.0 Glucose 93 (74-106) mg/dL Calcium 8.4 L (8.5-10.1) mg/dL C-Reactive Protein <0.50 (<=0.50) mg/dL Discharge Plan Discharge Stand Alone Forms: Work/School Release, Portal Instructions Chief Complaint: Wound/Laceration Clinical Impression: Cellulitis Patient Disposition: Home, Self-Care Print Language: Jordanian Instructions: Cellulitis (ED) Additional Instructions: follow up with your doctor next week for recheck. return if redness continues to spread Referrals: Physician,Non-Staff, MD [Primary Care Provider] - 1 week
[2024-04-01 22:33] LABS: Hematocrit 32.2 % (42.0-54.0); Hemoglobin 10.4 g/dL (14.0-18.0); Mean Corpuscular HGB Conc 32.3 g/dL (29.9-35.2); Mean Corpuscular Hemoglobin 26.1 pg (25.9-34.0); Mean Corpuscular Volume 80.7 fL (80.0-94.0); Mean Platelet Volume 9.6 fL (9.5-13.5); Platelet Count 48 10^3/uL (150-450); Red Blood Count 3.99 10^6/uL (4.70-6.10); Red Cell Distribution Width 17.9 % (11.0-15.0); White Blood Count 2.6 10^3/uL (4.0-11.0)
[2024-04-01] MEDS: CLINDAMYCIN PHOSPHATE/D5W 900 MG/50 ML PREMIX 100 MG IV (22:34)
[2024-04-01 22:41] LABS: Erythrocyte Sedimentation Rate 19 mm/hr (<=20)
[2024-04-01 22:45] LABS: Anion Gap 10.7; C Reactive Protein <0.50 mg/dL (<=0.50); Calcium 8.4 mg/dL (8.5-10.1); Carbon Dioxide 28.3 mmol/L (21.0-32.0); Chloride 104 mmol/L (98-107); Estimated GFR (African America >60 (>=60); Estimated GFR (Non-African Ame 55 (>=60); Glucose 93 mg/dL (74-106); Sodium 139 mmol/L (136-145)
[2024-04-01 22:53] LABS: Atypical Lymphocytes Abs Man 0.02; Eosinophils Absolute Manual 0.18 10^3/uL (0.00-0.70); Segmented Neut Absolute Manual 1.48 10^3/uL (1.4-6.5)
[2024-04-01] MEDS: CLINDAMYCIN HCL 150 MG CAPSULE 300 MG PO (23:47)
== END 2024-04-01 23:45 | disposition home or self-care (01) ==
PROVIDERS: Emergency Provider Internal Medicine
DX: L03.116 Cellulitis of left lower limb (principal); F10.20 Alcohol dependence, uncomplicated
CPT/HCPCS: 36415; 80048; 85007; 85027; 85652; 86140; 96365; 99284; J0736